=== PATIENT | male | born 1950 | race Caucasian/White ===

== ENCOUNTER 2017-06-08 12:43 | Emergency (ER) | payer MEDICARE, SELFPAY ==
[2017-06-08 12:44] VITALS: BP 164/95; PULSE 79; RESP 15; TEMP 36.6; O2SAT 94; BMI 26.8
[2017-06-08 13:53] LABS: Absolute Lymphocyte Count 0.74 X10^3/ul (0.83-4.51); Absolute Neutrophil Count 7.4 X10^3/uL (2.0-7.7); Basophil# 0.01 X10^3/uL; Basophil% 0.1 % (0-1); Eosinophil# 0.03 X10^3/uL; Eosinophils% 0.3 % (0-5); Hematocrit 37.1 % (40-54); Hemoglobin 11.8 g/dl (13.0-16.5); Lymphocyte # 0.74 X10^3/ul (4.0); Lymphocyte % 8.2 % (19-41); Mean Corp Hgb Conc 31.8 g/gl (32-36); Mean Corpuscular Hgb 28.6 pg (27.0-32.0); Mean Platelet Vol. 9.1 fl (6.2-12.0); Monocyte# 0.83 X10^3/uL; Monocyte% 9.2 % (0-10); Neutrophil # 7.41 X10^3/uL (2.7-7.7); Platelet Count 255 K/mm3 (150-450); RBC Distribution Width CV 13.9 % (11.6-14.6); Red Blood Count 4.12 M/mm3 (4.6-6.2)
[2017-06-08 13:54] LABS: POSITIVE COUNT NO; POSITIVE DIFFERENTIAL NO; POSITIVE MORPHOLOGY NO
--- NOTE | 2017-06-08 13:56 | ED.RN ---
PER VERBAL ORDER OF DR. MOONEY, PT GIVEN CUP OF ICE WATER. FURTHER VERBAL INSTRUCTION IS THAT PT IS TO ONLY HAVE ICE WATER PO, PT IS OTHERWISE ALLOWED NOTHING BY MOUTH.
[2017-06-08 14:06] LABS: Anion Gap 5 (5-15); BUN 9 mg/dL (7-18); BUN/Creat Ratio 13.3 RATIO (10-20); Calcium,Total 8.4 mg/dL (8.5-10.1); Chloride 100 mmol/L (98-107); Creatinine, Serum 0.68 mg/dL (0.70-1.30); EST Glomerular Filtration Rate 125 mL/min (>60); Est Glom Filt Rate - Afr Amer 151 mL/min (>60); Estimated Creatinine Clearance 75.03 ml/min; Glucose 138 mg/dL (74-106); Potassium 3.8 mmol/L (3.5-5.1); Sodium Level 133 mmol/L (136-145)
[2017-06-08 14:44] VITALS: BP 169/94; PULSE 77; RESP 16; O2SAT 94
--- NOTE | 2017-06-08 14:46 | ED.VISSUMM ---
- ER Visit Summary Date of Service: 06/08/17 Chief Complaint: Acute numbness and decreased sensation perianal region. History of Present Illness: The patient is a 66 M who was recently diagnosed with metastatic cancer to C4, T4, T5 and liver. There were pulmonary nodules noted as well. Patient had a recent liver biopsy. Pathology has not returned. Hence today because of numbness left upper and lower extremity that started abruptly after he showered this morning. He denies bowel or bladder dysfunction. He does complain of altered sensation in the perianal region. Per discussion with family, patient and Dr. Spangler has not an MRI of his brain. He denies any visual, ocular or auditory symptoms. I trouble speech or swallowing. He denies any cardiac respiratory symptoms. He denies any GI symptoms. He does complain of back pain. He was on no meds prior to this incident. Physical Examination: No signs are noted. His blood pressure is elevated 164/95. Head is atraumatic normocephalic. Pupils are equal round reactive. Extraocular muscles are intact. TMs are pearly white with landmarks noted. Nares patent with no drainage. Posterior pharynx without erythema or exudate. Uvula is midline. There is no dysphonia or dysphasia. Trachea is midline. There is no stridor with auscultation of the neck. Heart is regular without murmur, gallop or rub. S1 and S2 are normal. Lungs are clear to auscultation with good movement of air bilaterally. Abdomen is soft nontender. He has altered sensation left upper and lower extremity. No Babinski sign. DTRs are symmetric. There is no clonus. He has decreased rectal tone and altered perianal sensation. Difficult to assess for anal wink. Test Results: BMP and CBC were pending at the time of his transfer to the [facility]. Emergency Department Course and Treatment: In light of his history of metastatic cancer to bone BMP and CBC were obtained. After discussion with Dr. Mcarthur, Dr. Levy neurosurgery at [facility] and Dr. Nesbitt MRI of the brain, cervical, thoracic and lumbar spine were ordered. I was informed at 1445 that he now has a bed at the [facility] Treatment Plan: Transfer to [facility] for definitive care Disposition: Transfer to [facility]. 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 It may contain incorrect words, spelling, and punctuation that were not noted in review of the chart prior to signing ED Disposition - Plan for ED Patient: Chief Complaint: Back Referrals: Akila Aguirre NP-C [Primary Care Provider] -
--- NOTE | 2017-06-08 14:53 | ED.DCSUM_ITS ---
- ER Visit Summary Date of Service: 06/08/17 Chief Complaint: Acute numbness and decreased sensation perianal region. History of Present Illness: The patient is a 66 M who was recently diagnosed with metastatic cancer to C4, T4, T5 and liver. There were pulmonary nodules noted as well. Patient had a recent liver biopsy. Pathology has not returned. Hence today because of numbness left upper and lower extremity that started abruptly after he showered this morning. He denies bowel or bladder dysfunction. He does complain of altered sensation in the perianal region. Per discussion with family, patient and Dr. Spangler has not an MRI of his brain. He denies any visual, ocular or auditory symptoms. I trouble speech or swallowing. He denies any cardiac respiratory symptoms. He denies any GI symptoms. He does complain of back pain. He was on no meds prior to this incident. Physical Examination: No signs are noted. His blood pressure is elevated 164/ 95. Head is atraumatic normocephalic. Pupils are equal round reactive. Extraocular muscles are intact. TMs are pearly white with landmarks noted. Nares patent with no drainage. Posterior pharynx without erythema or exudate. Uvula is midline. There is no dysphonia or dysphasia. Trachea is midline. There is no stridor with auscultation of the neck. Heart is regular without murmur, gallop or rub. S1 and S2 are normal. Lungs are clear to auscultation with good movement of air bilaterally. Abdomen is soft nontender. He has altered sensation left upper and lower extremity. No Babinski sign. DTRs are symmetric. There is no clonus. He has decreased rectal tone and altered perianal sensation. Difficult to assess for anal wink. Test Results: BMP and CBC were pending at the time of his transfer to the [facility]. Emergency Department Course and Treatment: In light of his history of metastatic cancer to bone BMP and CBC were obtained. After discussion with Dr. Mcarthur, Dr. Levy neurosurgery at [facility] and Dr. Nesbitt MRI of the brain, cervical, thoracic and lumbar spine were ordered. I was informed at 1445 that he now has a bed at the [facility] Treatment Plan: Transfer to [facility] for definitive care Disposition: Transfer to [facility]. 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 It may contain incorrect words, spelling, and punctuation that were not noted in review of the chart prior to signing ED Disposition - Plan for ED Patient: Chief Complaint: Back Referrals: Akila Aguirre NP-C [Primary Care Provider] -
--- NOTE | 2017-06-08 14:58 | ED.RN ---
REPORT CALLED TO [facility] AFSANEH PEDRAZA.
[2017-06-08 16:00] VITALS: RESP 14
[2017-06-08] MEDS: HYDROmorphone 1 MG/ML Syringe IV (16:07)
[2017-06-08 16:14] VITALS: BP 162/92; PULSE 88; RESP 16; O2SAT 93
== END 2017-06-08 16:15 | disposition short-term general hospital (02) ==
PROVIDERS: Emergency Provider Emergency Medicine; Family Provider Nurse Practitioner Family; PCP Nurse Practitioner Family
DX: M84.48XA Pathological fracture, other site, initial encounter for fracture (principal); M51.04 Intervertebral disc disorders with myelopathy, thoracic region; K59.8 Other specified functional intestinal disorders; R20.2 Paresthesia of skin; C78.7 Secondary malignant neoplasm of liver and intrahepatic bile duct; C79.51 Secondary malignant neoplasm of bone; Z79.891 Long term (current) use of opiate analgesic
CPT/HCPCS: 80048; 85025; 96374; 96375; 99285; A4216

== ENCOUNTER 2017-09-20 12:33 | Emergency (ER) | payer MEDICARE, SELFPAY ==
[2017-09-20 12:34] VITALS: BP 112/50; PULSE 110; RESP 18; TEMP 36.8; O2SAT 95; BMI 22.6
[2017-09-20 13:47] LABS: Absolute Lymphocyte Count 1.24 X10^3/ul (0.83-4.51); Absolute Neutrophil Count 15.6 X10^3/uL (2.0-7.7); Hematocrit 32.7 % (40-54); Hemoglobin 10.6 g/dl (13.0-16.5); Lymphocyte # 1.24 X10^3/ul (4.0); Lymphocyte % 7.1 % (19-41); Mean Corp Hgb Conc 32.4 g/gl (32-36); Mean Corpuscular Volume 89.6 fL (80-94); Mean Platelet Vol. 8.9 fl (6.2-12.0); Monocyte# 0.51 X10^3/uL; Monocyte% 2.9 % (0-10); Neutrophil # 15.62 X10^3/uL (2.7-7.7); Neutrophil % 89.7 % (47-70); Platelet Count 346 K/mm3 (150-450); RBC Distribution Width CV 19.1 % (11.6-14.6); RBC Distribution Width SD 62.9 fl (35.1-43.9); Red Blood Count 3.65 M/mm3 (4.6-6.2); White Blood Count 17.4 K/mm3 (4.4-11.0)
[2017-09-20 13:48] LABS: POSITIVE COUNT NO; POSITIVE DIFFERENTIAL NO; POSITIVE MORPHOLOGY NO
[2017-09-20 14:01] LABS: Anion Gap 11 (5-15); BUN 15 mg/dL (7-18); BUN/Creat Ratio 21.2 RATIO (10-20); Calcium,Total 7.1 mg/dL (8.5-10.1); Chloride 103 mmol/L (98-107); Creatinine, Serum 0.71 mg/dL (0.70-1.30); EST Glomerular Filtration Rate 118 mL/min (>60); Est Glom Filt Rate - Afr Amer 143 mL/min (>60); Glucose 84 mg/dL (74-106); Potassium 3.5 mmol/L (3.5-5.1); Sodium Level 136 mmol/L (136-145)
--- NOTE | 2017-09-20 14:06 | CM.ED ---
Case management consulted by Dr. Johnson for resource management related to lack of drug coverage. CM INITIAL ASSESSMENT: Home: Patient lives in a two-story home with his . They have first-floor setup. HHS/Aides: Denies currently having and declines setup at this time. DME: Walker and cane, as needed. Home Oxygen: Denies. Pharmacy: [facility] Advance Directives: Denies currently having. Declines assistance at this time. PCP: Akila Aguirre Specialists: Dr. Mcarthur I discussed maximum income requirement to qualify for Medicaid and patient states he will not qualify. I asked the patient if he has looked into drug coverage. He replied, We considered it and then decided not to get any. Call placed to Dr. Mcarthur's office. Dr. Mcarthur states he sent the patient to ED because he has a DVT and no drug coverage. I explained that we can offer the patient a 30 day free trial of Xarelto, but we have no further means of providing medication at no cost for this patient. Dr. Mcarthur states the patient will need to be on this medication for lifetime. He has already sent a prescription for Xarelto to patient's pharmacy, [facility] in [place]. Dr. Mcarthur states that he recommends providing first dose of Xarelto to the patient in the ED. Patient may take his second dose tomorrow morning, using his 30-day trial offer. Dr. Johnson updated on Dr. Mcarthur's recommendations. I discussed palliative care with the patient and family. All present are in agreement with palliative care referral. Patient requests that they contact his , Radha. Palliative care referral sent. Radha states that the patient has ample family support. DC Plan: Home with family support. 30 day free trial offer for Xarelto. Palliative care referral. Patient encouraged to follow-up with Dr. Mcarthur's office social insurance analyst. Patient encouraged to acquire prescription drug coverage.
--- NOTE | 2017-09-20 14:36 | CM.ED ---
Social Work Note MILO MOLINA, Albaro Hernandes, updated SPIKE on case. Pt and his do not meet income guidelines for Medicaid, they opted to not have drug coverage. Albaro Hernandes to give pt 30 day free trail for Xarelto. SPIKE placed call to Trudi Solorzano, Patient Navigator, who informed [employer] of application through [employer] that assists with drug coverage for those without. Form does need completed by office staff/Dr. Mcarthur. Provided to pt and his and informed of process. Understanding expressed and both thanked [employer]KE and MILO MOLINA. No further needs at this time. Sara Babin, FARM OWNER OPERATOR, PAINTER AND DECORATOR APPRENTICE
[2017-09-20] MEDS: Rivaroxaban 15 MG Tablet PO (15:16)
[2017-09-20] MEDS: 0.9% Normal Saline 1,000 ML 999 ML IV (15:17)
--- NOTE | 2017-09-20 15:25 | ED.VISSUMM ---
- ER Visit Summary Date of Service: 09/20/17 Chief Complaint: [DVT left leg] History of Present Illness: The patient is a 67 M [presents the emergency department complaint of swelling in his left leg for about a week. Patient was seen by Dr. Spangler and had a venous Doppler ordered which showed a femoral vein DVT. Dr. Mcarthur asked that patient come in to be admitted for anticoagulation as he does not have prescription coverage and cannot afford the medication for anticoagulation of his DVT. Patient denies any chest pain. 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 Cranial nerves II through XII grossly intact. TMs clear. Mucous membranes moist. No adenopathy. Cardiovascular-regular and tachycardic. No murmurs auscultated. Lungs-clear to auscultation, chest wall stable without crepitus or subcu emphysema Abdomen-normoactive bowel sounds, soft, nontender, no rebound or rigidity, no peritoneal signs. Extremities-intact ?4, normal range of motion, normal pulses, atraumatic]. Patient does have edema of both lower extremities of +2. Positive Homans sign on the left. No ropes or cords palpated. Has normal pulses in both lower extremities. Test Results: [CBC with differential obtained showed a white count 17.4, hemoglobin 10, hematocrit 33, placed 346. Chemistries unremarkable. BUN was 15 and current was 0.71.] Emergency Department Course and Treatment: [woodworker helper speak with the patient as well as with Dr. Mcarthur. At this point the worker will be able to have patient obtain a months worth of Xarelto at no charge to himself and Dr. Mcarthur's team will work on arranging further treatment of his DVT. Patient will be discharged to home and to follow-up with Dr. Mcarthur. She did receive a liter normal same fluid bolus in the emergency department as family was concerned the patient was not drinking enough.] Treatment Plan: [Patient will be started on Xarelto and was given 15 mg p.o. in the emergency department prior to departure.] Disposition: [Discharged home in stable condition. Patient advised to return if chest pain or increasing shortness of breath.] Impression: [DVT left lower extremity] This note was generated with [employer] software. It may contain incorrect words, spelling, and punctuation that were not noted in review of the chart prior to signing ED Disposition - Plan for ED Patient: Chief Complaint: Lower Extremity Injury Referrals: Akila Aguirre NP-C [Primary Care Provider] -
--- NOTE | 2017-09-20 15:28 | ED.DCSUM_ITS ---
- ER Visit Summary Date of Service: 09/20/17 Chief Complaint: [DVT left leg] History of Present Illness: The patient is a 67 M [presents the emergency department complaint of swelling in his left leg for about a week. Patient was seen by Dr. Spangler and had a venous Doppler ordered which showed a femoral vein DVT. Dr. Mcarthur asked that patient come in to be admitted for anticoagulation as he does not have prescription coverage and cannot afford the medication for anticoagulation of his DVT. Patient denies any chest pain. 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 Cranial nerves II through XII grossly intact. TMs clear. Mucous membranes moist. No adenopathy. Cardiovascular-regular and tachycardic. No murmurs auscultated. Lungs-clear to auscultation, chest wall stable without crepitus or subcu emphysema Abdomen-normoactive bowel sounds, soft, nontender, no rebound or rigidity, no peritoneal signs. Extremities-intact ?4, normal range of motion, normal pulses, atraumatic]. Patient does have edema of both lower extremities of +2. Positive Homans sign on the left. No ropes or cords palpated. Has normal pulses in both lower extremities. Test Results: [CBC with differential obtained showed a white count 17.4, hemoglobin 10, hematocrit 33, placed 346. Chemistries unremarkable. BUN was 15 and current was 0.71.] Emergency Department Course and Treatment: [bilingual social worker speak with the patient as well as with Dr. Mcarthur. At this point the worker will be able to have patient obtain a months worth of Xarelto at no charge to himself and Dr. Mcarthur's team will work on arranging further treatment of his DVT. Patient will be discharged to home and to follow-up with Dr. Mcarthur. She did receive a liter normal same fluid bolus in the emergency department as family was concerned the patient was not drinking enough.] Treatment Plan: [Patient will be started on Xarelto and was given 15 mg p.o. in the emergency department prior to departure.] Disposition: [Discharged home in stable condition. Patient advised to return if chest pain or increasing shortness of breath.] Impression: [DVT left lower extremity] This note was generated with getuppation software. It may contain incorrect words, spelling, and punctuation that were not noted in review of the chart prior to signing ED Disposition - Plan for ED Patient: Chief Complaint: Lower Extremity Injury Referrals: Akila Aguirre NP-C [Primary Care Provider] -
--- NOTE | 2017-09-20 15:29 | ED.DEP ---
ED Disposition - Plan for ED Patient: Chief Complaint: Lower Extremity Injury Instructions: ED DVT Prescriptions: Rivaroxaban [Xarelto] 20 mg PO DAILY #7 tab Rivaroxaban [Xarelto] 15 mg PO BID #42 tab Referrals: Akila Aguirre NP-C [Primary Care Provider] - Akbar Mcarthur DO [STAFF PHYSICIAN] - 5-7 Days
[2017-09-20 16:02] VITALS: BP 111/77; PULSE 92; RESP 16; O2SAT 96
== END 2017-09-20 16:03 | disposition home or self-care (01) ==
PROVIDERS: Emergency Provider Emergency Medicine; Family Provider Nurse Practitioner Family; PCP Nurse Practitioner Family
DX: I82.412 Acute embolism and thrombosis of left femoral vein (principal); C44.99 Other specified malignant neoplasm of skin, unspecified; C79.9 Secondary malignant neoplasm of unspecified site; Z79.899 Other long term (current) drug therapy
CPT/HCPCS: 80048; 85025; 96360; 99284; A4216

== ENCOUNTER 2018-02-17 13:57 | Emergency (ER) | payer MEDICARE, SELFPAY ==
[2018-02-17 13:57] VITALS: BP 110/71; PULSE 78; RESP 16; TEMP 36.7; O2SAT 99; BMI 20.3
--- NOTE | 2018-02-17 14:23 | RAD_ITS ---
STUDY: XR FEMUR, RIGHT RIGHT REASON FOR EXAM: Male, 67 years old. Fall 2 weeks ago, pain in the right hip and proximal femur. TECHNIQUE: 4 views of the right femur. COMPARISON: Frontal pelvis same date. FINDINGS: Right total knee arthroplasty. The prosthetic components appear to be normally seated and articulated. There is no evidence of fracture about the knee and no evidence of effusion. There are prominent peripheral vascular calcifications of the femoral arterial distribution. The femoral shaft is intact. There is no radiographic evidence of femoral neck or intertrochanteric fracture. There are minimal degenerative features of the right hip joint. There is mildly increased prominence of the soft tissue silhouette associated with superior right hip joint capsule which could reflect the presence of effusion. There is no visible pubic ramus fracture. RAD/Femur Min 2 Views IMPRESSION: Mild right hip joint capsule soft tissue prominence may reflect the presence of hip joint effusion. No visible hip, femur or knee fracture. Peripheral arterial disease. Electronically Signed: Yuniel Moctezuma, at 14:55 EST Tel , Service support ,
--- NOTE | 2018-02-17 14:23 | RAD_ITS ---
STUDY: X-RAY - PELVIS REASON FOR EXAM: Male, 67 years old. Trauma, fall 2 weeks ago with pain in the right hip. TECHNIQUE: One view of the pelvis was obtained. COMPARISON: None. FINDINGS: Generalized osteopenia. Low lumbar degenerative disc disease and facet arthropathy at L4-L5 and L5-S1. Mild symmetric degenerative features of the SI joints. The sacral ala appear symmetric and intact. Iliac crests intact. Acetabula are intact. No evidence of pubic ramus fracture. Left proximal femur intact. Mild degenerative features. Right hip: There appears to be mild distention of the right hip joint space superior to the femoral head and lateral to this. Acetabular margin which may indicate the presence of joint effusion. There is no visible fracture. There are mild degenerative features of the right hip particularly should including mild joint margin osteophytic lipping and small subcortical acetabular cysts. There is a small synovial herniation pit of the superior aspect of the femoral head-neck junction. RAD/Pelvis 1 or 2 Views IMPRESSION: Prominence of the right hip periarticular soft tissue silhouette suggesting the possibility of right hip effusion. Mild degenerative features of the right and left hip joints. Low lumbar spondylosis. No visible hip or pelvic fracture. Electronically Signed: Yuniel Moctezuma, at 14:53 EST Tel , Service support ,
--- NOTE | 2018-02-17 15:41 | ED.VISSUMM ---
- ER Visit Summary Date of Service: 02/17/18 Chief Complaint: Right hip pain History of Present Illness: The patient is a 67 M who is on Xarelto and has a history of metastatic melanoma. 2 weeks ago after being discharged from the hospital where he had gamma knife surgery the patient sustained a fall onto his left hip. He denies hitting his head. He notes that he has had continued pain in the right hip with motion. He states that he uses a walker. Family brings him in. Patient points to the lateral aspect of the thigh and the hip as the source of his pain. Physical Examination: Afebrile vital signs are stable Patient has no pain with logroll. He has tenderness over the greater trochanter. I am able to flex and extend the hip. He has most a lot of pain with AB and adduction. Test Results: X-rays of the pelvis and femur were negative for fracture. Emergency Department Course and Treatment: At home. His prefers Tylenol. Talked about joint effusion and what it could represent. Patient will follow-up if he is not improving. He may need an MRI if he does not improve. Impression: 1. Right hip contusion 2. Right hip effusion This note was generated with [employer] dictation software. It may contain incorrect words, spelling, and punctuation that were not noted in review of the chart prior to signing ED Disposition - Plan for ED Patient: Disposition: Home or Assisted Living Chief Complaint: Fall Instructions: ED Contusion Hip Referrals: Akila Aguirre NP-C [Primary Care Provider] - 1 Week if not improving
== END 2018-02-17 16:18 | disposition home or self-care (01) ==
PROVIDERS: Emergency Provider Emergency Medicine; Family Provider Nurse Practitioner Family; PCP Nurse Practitioner Family
DX: M25.451 Effusion, right hip (principal); S70.01XA Contusion of right hip, initial encounter; Z85.820 Personal history of malignant melanoma of skin; Z79.02 Long term (current) use of antithrombotics/antiplatelets; Z79.899 Other long term (current) drug therapy; W19.XXXA Unspecified fall, initial encounter; Y93.89 Activity, other specified; Y92.89 Other specified places as the place of occurrence of the external cause; Y99.8 Other external cause status
CPT/HCPCS: 72170; 73552; 99283

== ENCOUNTER 2018-02-25 09:36 | Outpatient (CLI) | payer MEDICARE, SELFPAY ==
[2018-02-25] VITALS (10 sets, daily range): BP systolic 97–127; BP diastolic 60–76; PULSE 75–97; RESP 16–20; TEMP 36.4–36.9; O2SAT 94–100; BMI 20.3
[2018-02-25] MEDS: Acetaminophen 500 MG Tablet PO (16:17)
--- NOTE | 2018-02-25 17:02 | NURSING ---
Approx 20 min until 2nd PRBC done infusing, of patient tells me he hasn't peed in 24hrs. Before we left the house, he peed just a little bit. This nurse bladder scanned him for >766. This nurse assisted pt to getting up to BSC to urinate. Unable to urinate. Back to bed. Dr. Moreno aware and orders to put mistry in and go home and d/u with Lyubov on Tuesday.
--- NOTE | 2018-02-25 17:34 | NURSING ---
Thompson inserted, 850cc of urine obtained.
== END 2018-02-25 17:34 | disposition home or self-care (01) ==
LOC: MS3OUT 09:37 → MS3 09:39
PROVIDERS: Family Provider Nurse Practitioner Family; PCP Nurse Practitioner Family; Referring Provider Internal Medicine Hematology & Oncology; Visit Provider Internal Medicine Hematology & Oncology
DX: Z51.89 Encounter for other specified aftercare (principal)
CPT/HCPCS: 36430; 86850; 86900; 86920; 86922; J7040; P9016

== ENCOUNTER 2018-02-27 17:24 | Emergency (ER) | payer MEDICARE, SELFPAY ==
[2018-02-25 11:14] VITALS: BMI 20.3
[2018-02-27 17:24] VITALS: BP 118/57; PULSE 68; RESP 16; TEMP 36.6; O2SAT 93; BMI 20.7
[2018-02-27 18:58] LABS: Mucous, Urine 0 SEEN /hpf (<or=2+)
--- NOTE | 2018-02-27 18:58 | ED.RN ---
uro-jet no used. catheter place without complications. family at bedside. catheter secured to right thigh. sara vuong rn [id number]
[2018-02-27 18:59] LABS: ALB/GLOB Ratio 0.5 RATIO (0.9-2.4); AST(SGOT) 123 U/L (15-37); Alanine Aminotransfer ALT/SGPT 28 U/L (16-61); Albumin, Serum 1.7 g/dL (3.2-5.0); Alkaline Phosphatase 229 U/L (45-117); Anion Gap 8 (5-15); BUN 15 mg/dL (7-18); BUN/Creat Ratio 20.6 RATIO (10-20); Calcium,Total 7.5 mg/dL (8.5-10.1); Chloride 107 mmol/L (98-107); Creatinine, Serum 0.73 mg/dL (0.70-1.30); EST Glomerular Filtration Rate 114 mL/min (>60); Est Glom Filt Rate - Afr Amer 138 mL/min (>60); Estimated Creatinine Clearance 66.68 ml/min; Globulin 3.2 g/dL (2.2-4.2); Glucose 107 mg/dL (74-106); Potassium 3.8 mmol/L (3.5-5.1); Protein, Total 4.9 g/dL (6.4-8.2); Sodium Level 136 mmol/L (136-145)
[2018-02-27 19:01] LABS: Absolute Lymphocyte Count 0.82 X10^3/ul (0.83-4.51); Absolute Neutrophil Count 14.8 X10^3/uL (2.0-7.7); Basophil# 0.01 X10^3/uL; Basophil% 0.1 % (0-1); Eosinophil# 0.02 X10^3/uL; Eosinophils% 0.1 % (0-5); Hematocrit 25.7 % (40-54); Hemoglobin 8.2 g/dl (13.0-16.5); Lymphocyte # 0.82 X10^3/ul (4.0); Lymphocyte % 4.7 % (19-41); Mean Corp Hgb Conc 31.9 g/gl (32-36); Mean Corpuscular Hgb 29.4 pg (27.0-32.0); Mean Corpuscular Volume 92.1 fL (80-94); Mean Platelet Vol. 8.4 fl (6.2-12.0); Monocyte# 1.88 X10^3/uL; Monocyte% 10.7 % (0-10); Neutrophil # 14.81 X10^3/uL (2.7-7.7); Neutrophil % 84.1 % (47-70); Platelet Count 436 K/mm3 (150-450); RBC Distribution Width CV 18.5 % (11.6-14.6); RBC Distribution Width SD 60.3 fl (35.1-43.9); Red Blood Count 2.79 M/mm3 (4.6-6.2); White Blood Count 17.6 K/mm3 (4.4-11.0)
[2018-02-27 19:02] LABS: Color, Urine Amber (Yellow); Glucose, Dipstick Normal (Normal); Ketone-Dipstick 5 mg/dl (Negative); Leukocyte Esterase-Dipstick 100 /ul (Negative); Nitrite-Dipstick Negative (Negative); Occult Blood-Urine 25 /ul (Negative); Protein-Dipstick 30 mg/dl (Negative); Urine Clarity Clear (Clear); Urine Urobilinogen 8 mg/dl (Normal); Urine pH 6.5 (5.0 - 8.0)
[2018-02-27 19:02] LABS: Differential Indicated SCAN CRITERIA MET; POSITIVE COUNT NO; POSITIVE DIFFERENTIAL YES; POSITIVE MORPHOLOGY YES
[2018-02-27 19:12] LABS: Urine Bilirubin Dipstick 3 mg/dL (Negative)
[2018-02-27 19:14] LABS: Bacteria 1+ /hpf (None Seen); Red Blood Cells-Urine 0-5 SEEN /hpf (0-5); Squamous Epithelial Cells - UA 0-5 SEEN /hpf (0-5); White Blood Cells 0-5 SEEN /hpf (0-5)
--- NOTE | 2018-02-27 19:14 | ED.VISSUMM ---
- ER Visit Summary Date of Service: 02/27/18 Chief Complaint: Urinary tract infection, weakness History of Present Illness: The patient is a 67 M presents to the emergency department urinary tract infection and weakness. The patient has a history of metastatic melanoma. He is on an oral chemotherapeutic. He does follow with Dr. Mcarthur. Patient was seen Tuesday by Dr. Spangler. At that time, he was transfused 2 units. He was also found to have acute urinary obstruction. A Thompson catheter was placed. Culture was done. The patient was started on amoxicillin. Tuesday night while in bed, he moved and the catheter came out. Since then, he has had difficulty urinating and has had increasing weakness. He denies any fevers or chills. The patient does have known metastasis throughout his body. He has a very poor prognosis. Physical Examination: Vital signs reviewed General: Well-nourished, well-developed Head: Normocephalic, atraumatic Eyes: Pupils equal and reactive, extraocular muscles intact Neck, supple, no lymphadenopathy Heart: Regular rate and rhythm Respiratory: No distress, clear bilaterally Abdomen: Soft, nontender, nondistended, no peritoneal signs Back: Nontender Extremities: Nontender, 1+ edema, no cords Skin: Normal color no rash Neuro: Alert and oriented, no focal or lateralizing deficits Test Results: [] Emergency Department Course and Treatment: The patient presents with weakness. He has known urinary tract infection. He has been able to urinate since his catheter came out. Bladder scan was obtained and he had over 500 cc. Thompson catheter was placed and the patient had immediate relief of his symptoms. Screening labs do show leukocytosis and chronic anemia. Otherwise they are unremarkable. His kidney function is normal. He does have elevation of his liver functions, but in review of his lab work this does appear to be chronic. I had a long conversation with the patient and the family. He has a known urinary tract infection. His obstruction has been relieved. He has rather severe cancer with poor prognosis. He wants to go home. He is not septic. He has already been on oral antibiotics. I feel this is reasonable. The patient was given a dose of IV Rocephin. Catheter will be kept in place. He will be discharged and follow-up with Dr. Mcarthur. Treatment Plan: [] Disposition: Discharge Impression: 1. Acute urinary obstruction This note was generated with [employer] software. It may contain incorrect words, spelling, and punctuation that were not noted in review of the chart prior to signing ED Disposition - Plan for ED Patient: Chief Complaint: Complaint Instructions: ED Retention Urinary Male Referrals: Akila Aguirre NP-C [Primary Care Provider] -
[2018-02-27 19:35] LABS: Differential Comment SCANNED
[2018-02-27] MEDS: Ceftriaxone 1 GM/50 ML BAG IV (20:01)
[2018-02-27 20:05] VITALS: BP 118/85; PULSE 96; RESP 14; O2SAT 100
[2018-02-28 12:09] LABS: Pathologist Review Reviewed
--- OUTSIDE RECORDS SUMMARY | 2018-04-11 16:39 | XMS RPT_ITS ---
:1950 Author Organization OHIP Care Team Providers Name Role Phone LYUBOV, AKBAR Cabrera Referring Unavailable ZAYJAZIEL Attending Unavailable MASCI, AKBAR Cabrera Referring Unavailable MASCI, AKBAR Cabrera Referring Unavailable ZAY, JAZIEL Attending Unavailable ZAY, JAZIEL Attending Unavailable ZAY, JAZIEL Attending Unavailable MASCI, AKBAR Cabrera Referring Unavailable MASCI, AKBAR Cabrera Referring Unavailable MASCI, AKBAR Cabrera Attending Unavailable MASCI, AKBAR Cabrera Referring Unavailable MASCI, AKBAR Cabrera Referring Unavailable MASCI, AKBAR Cabrera Referring Unavailable MASCI, AKBAR Cabrera Referring Unavailable MASCI, AKBAR Cabrera Attending Unavailable MASCI, AKBAR Cabrera Referring Unavailable MASCI, AKBAR Cabrera Referring Unavailable MASCI, AKBAR A Referring Unavailable MASCI, AKBRA A Referring Unavailable MASCI, AKBAR Cabrera Attending Unavailable MASCI, AKBAR A Referring Unavailable MASCI, AKBAR A Referring Unavailable MASCI, AKBAR A Referring Unavailable MASCI, AKBAR A Referring Unavailable MASCI, AKBAR A Referring Unavailable MASCI, AKBAR Cabrera Attending Unavailable MASCI, AKBAR A Referring Unavailable MASCI, AKBAR A Referring Unavailable MASCI, AKBAR A Referring Unavailable FUNCHAINMAVIS Admitting Unavailable RINGS, JASBIR Referring Unavailable VELCHETI, VAMSIDHAR Attending Unavailable MASCI, AKBAR Cabrera Referring Unavailable MASCI, AKBAR Rick Referring Unavailable GRETCHEN LANE ([facility]) Attending Unavailable MASCI, AKBAR Rick Referring Unavailable MASCI, AKBAR Cabrera Referring Unavailable GRETCHEN LANE ([facility]) Attending Unavailable MASCI, AKBAR Cabrera Referring Unavailable LANEGRETCHEN MARINO ([facility]) Referring Unavailable MASCI, AKBAR Rick Referring Unavailable MASCI, AKBAR Rick Referring Unavailable MASCI, AKBAR Cabrera Attending Unavailable MASCI, AKBAR Rick Referring Unavailable ZAY, JAZIEL Attending Unavailable ZAY, DAKERRYUNG Referring Unavailable MASCI, AKBAR Cabrera Referring Unavailable VIRGIL, JACQUELYN JOSHI Attending Unavailable ZAY, DAKERRYUNG Attending Unavailable ZAY, DAKERRYUNG Attending Unavailable KOYFMANALE Attending Unavailable ZAY, JAZIEL Attending Unavailable MASCI, AKBAR Cabrera Attending Unavailable THIPPANNAHORACE () Referring Unavailable ZAY, ELFEGOUNG Attending Unavailable THIPPANNA, HORACE Soni () Referring Unavailable ZAY, JAZIEL Attending Unavailable THIPPANNAHORACE () Referring Unavailable THIPPANNA, HORACE WHITLOCK) Referring Unavailable CHATNEL, JD Admitting Unavailable MOONEY, SKINNY ARTEMIO Referring Unavailable THIPPANNA, HORACE Soni () Attending Unavailable THIPPANNAHORACE) Referring Unavailable CHANTEL, JD Admitting Unavailable THIPPANNAHORACE () Attending Unavailable MASCI, AKBAR A Referring Unavailable MASCI, AKBAR A Referring Unavailable MASCI, AKBAR Cabrera Referring Unavailable MASCI, AKBAR Cabrera Attending Unavailable MASCI, AKBAR Cabrera Referring Unavailable MASCI, AKBAR Cabrera Referring Unavailable BEATTY, GENE Admitting Unavailable BEATTY, GENE Attending Unavailable BEATTY, GENE Referring Unavailable BEATTY, GENE Referring Unavailable BEATTY, GENE Admitting Unavailable BEATTY, GENE Attending Unavailable BEATTY, GENE Referring Unavailable BEATTY, GENE Admitting Unavailable BEATTY, GENE Attending Unavailable BEATTY, GENE Referring Unavailable BEATTY, GENE Attending Unavailable HARPSTER, JERRY Referring Unavailable PHYLLIS GARCIA Attending Unavailable ZAY, DAESUNG Referring Unavailable MASCI, AKBAR A Referring Unavailable MASCI, AKBAR Rick Referring Unavailable ZAY, DAJOVANA Attending Unavailable ZAY, DAESUNG Referring Unavailable [place], Jerry September Attending Unavailable [place], Jerry September Admitting Unavailable [place], Jerry September Primary Care Unavailable Mary Reyes Consulting Unavailable Mary Reyes Attending Unavailable [place], Jerry September Primary Care Unavailable Mary Reyes Admitting Unavailable [place], Jerry September Admitting Unavailable [place], Jerry September Attending Unavailable [place], Jerry September Primary Care Unavailable [place], Jerry September Attending Unavailable [place], Jerry September Primary Care Unavailable [place], Jerry September Attending Unavailable [place], Jerry September Primary Care Unavailable [place], Jerry September Admitting Unavailable [place], Jerry September Attending Unavailable [place], Jerry September Primary Care Unavailable [place], Jerry September Admitting Unavailable [place], Jerry September Admitting Unavailable [place], Jerry September Attending Unavailable [place], Jerry September Primary Care Unavailable [place], Jerry September Primary Care Unavailable [place], Jerry September Admitting Unavailable [place], Jerry September Attending Unavailable [place], Jerry September Admitting Unavailable [place], Jerry September Attending Unavailable [place], Jerry September Primary Care Unavailable [place], Jerry September Attending Unavailable [place], Jerry September Primary Care Unavailable [place], Jerry September Primary Care Unavailable Rings Jasbir Admitting Unavailable Rings Jasbir Attending Unavailable Skinny Mooney Attending Unavailable [place], Jerry CONTENT WRITER-C Primary Care Unavailable [place], Jerry CONTENT WRITER-C Primary Care Unavailable Juan Luis Alcocer Attending Unavailable [place], Jerry CONTENT WRITER-C Primary Care Unavailable Aron Denney Attending Unavailable Akbar Mcarthur Attending Unavailable Akbar Mcarthur Referring Unavailable [place], Jerry CONTENT WRITER-C Primary Care Unavailable [place], Jerry CONTENT WRITER-C Primary Care Unavailable Austin Perez Attending Unavailable PROBLEMS PROBLEMS DATE TYPE CONDITION / CODE ATTENDING STATUS SOURCE 01/24/2018 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 / [facility] [place] C79.31(ICD-10) Repository 03/01/2018 Active Gross hematuria / NA Active [facility] R31.0(ICD-10) [place] Repository 03/01/2018 Active Anemia, unspecified NA Active [facility] / D64.9(ICD-10) [place] Repository 08/13/2017 Active 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 / C78.7(ICD-10) 08/13/2017 Active Malignant melanoma NA Active [facility] of skin, [place] unspecified / Repository C43.9(ICD-10) 11/24/2017 Active Low back pain / NA Active [facility] M54.5(ICD-10) [place] Repository 11/24/2017 Active Other specified NA Active [facility] urinary [place] incontinence / Repository N39.498(ICD-10) 11/24/2017 Active Full incontinence NA Active [facility] of feces / [place] R15.9(ICD-10) Repository 11/21/2017 Active 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 / Repository I82.512(ICD-10) 08/13/2017 Active Unspecified cord NA Active [facility] compression / [place] G95.20(ICD-10) Repository 09/20/2017 Active Other specified NA Active [facility] soft tissue [place] disorders / Repository M79.89(ICD-10) 09/16/2017 Active Dyspnea, NA Active [facility] unspecified / [place] R06.00(ICD-10) Repository 09/16/2017 Active Other abnormalities NA Active [facility] of breathing / [place] R06.89(ICD-10) Repository 09/05/2017 Active Unknown / NA Active [facility] UNK(Unknown) [place] Repository 08/02/2017 Active Hypothyroidism, NA Active [facility] unspecified / [place] E03.9(ICD-10) Repository 06/08/2017 Active Secondary malignant THIPPANNA, Active [facility] neoplasm of HORACE WHITLOCK) [place] unspecified site / Repository C79.9(ICD-10) 06/08/2017 Active Malignant (primary) THIPPANNA, Active [facility] neoplasm, HORACE WHITLOCK) [place] unspecified / Repository C80.1(ICD-10) 06/08/2017 Active Collapsed vertebra, THIPPANNA, Active [facility] not elsewhere HORACE WHITLOCK) [place] classified, Repository thoracic region, initial encounter for fracture / M48.54XA(ICD-10) 06/08/2017 Active Pain in thoracic THIPPANNA, Active [facility] spine / H[place]ACE WHITLOCK) [place] M54.6(ICD-10) Repository 06/03/2017 Active Dorsalgia, THIPPANNA, Active [facility] unspecified / HORACE WHITLOCK) [facility] M54.9(ICD-10) Repository 06/03/2017 Active Pathological THIPPANNA, 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, Repository other specified site, initial encounter for fracture / M84.58XA(ICD-10) 06/03/2017 Active Secondary malignant THIPPANNA, 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 / HORACE WHITLOCK) [facility] C79.51(ICD-10) Repository 06/03/2017 Active Neoplasm related THIPPANNA, Active [facility] pain (acute) HORACE WHITLOCK) [facility] (chronic) / Repository G89.3(ICD-10) PROCEDURES PROCEDURES No Procedure Records FoundRESULTS RESULTS CNPN Observed: 03/06/2018 Status: COMPLETED Source: [place] 12:00 AM [facility] REPOSITORY Telephone (JOSSY) DELMI PHILLIPS ([id number]) 1950 M Date Time Provider Department 03/06/18 AKBAR MCARTHUR During your visit today, we recorded the following information about you: Chela Young LPN, ROB 03/06/2018 8:13 AM Signed [facility] admission for their services on Tuesday. Have a couple questions. 1) Are we giving orders on urinary catheter, if not who is? 2) Can they have an order for home health aid to asst. With bathing pt., as he is bed bound? Will contact [facility] [phone] with insturctions. ROB Lin DO 03/06/2018 8:21 AM Signed As of Tuesday I thought the plan was for him to go to the ER. It sounds like he is functionally declining and his CT scans showed progression of disease. I left a voice message for his daughter Maria L this morning asking her to call the office so I can discuss with her. I think he needs hospice care. In the meantime, okay to go ahead and order a home health aide for assistance at home and we can manage orders for the catheter. DO Chela Crandall LPN, RBO 03/06/2018 9:23 AM Signed Spoke with Bela, given information concerning catheter , and assistance for home care. Dr. Mcarthur will manage orders. ROB Lin LPN 03/06/2018 1:17 PM Signed BETY Carrington from [facility] called to let you know that patient's flat out refused hospice and wouldn't even entertain a conversation regarding any of their services. Charissa will keep in touch with patient's daughter. Beverly Mcarthur DO 03/06/2018 1:20 PM Signed Noted. Thank you. Akbar Mcarthur DO Allergies As of Date: 03/06/2018 Noted Allergy Reaction SULFA (SULFONAMIDE ANTIBIOTICS) 08/25/2011 2 - Rash TIZANIDINE 06/04/2017 8 - GI Upset Date Reviewed: 02/27/2018 Reviewed by: Adilene Elder Ct - Fully Assessed Reason for Visit: home health [Other] Prescriptions as of 03/06/2018 Sig: POTASSIUM CHLORIDE ER 20 MEQ * Take 1 tablet by mouth once d* OMEPRAZOLE 40 MG CAPSULE,MALISSA* Take 1 capsule by mouth once * DABRAFENIB 75 MG CAPSULE Take 2 capsules by mouth twic* TRAMETINIB 2 MG TABLET Take 1 tablet by mouth once d* Problem List As Of Date 03/06/2018 Noted Resolved Cord compression (HCC) [G95.20] INVALID FOR* More... Nicotine use disorder, F17.2 [F17.200] INVALID FOR* Brain metastases (HCC) [C79.31] INVALID FOR* Malignant melanoma (HCC) [C43.9] INVALID FOR* Liver metastases (HCC) [C78.7] INVALID FOR* Fall [W19.XXXA] INVALID FOR*08/13/2017 More... Acute deep vein thrombosis (DVT) of femoral vei*INVALID FOR* Encounter Status:Closed by CHELA YOUNG on 03/06/18 CNPN Observed: 03/03/2018 Status: COMPLETED Source: [place] [address]:00 AM [facility] REPOSITORY Telephone (FAMPWS) DELMI DEL RIO ([id number]) 1950 M Date Time Provider Department 03/03/18 [facility] During your visit today, we recorded the following information about you: Adilene Mak Psr 03/03/2018 9:16 AM Signed Landy with [facility] called and states she just spoke with Delmi's about home care. told her that Delmi was referred by Dr Mcarthur. Additional information is needed to proceed in setting up home care: Demographics, Med list, recent office note, HANDP, and orders including PT. Please fax this information to Landy at [phone]. Beverly Rice LPN 03/03/2018 9:47 AM Signed All requested information faxed to Landy. Beverly Rice LPN 03/03/2018 11:03 AM Addendum Reba from [facility] calling asking if you will follow with home care or you'd prefer they call patient's PCP? Also asking if they can also have an order for nurse visits as well as PHYSICAL THERAPY? Reba [phone] Beverly Mcarthur DO 03/03/2018 11:25 AM Signed Yes, I can follow and order. Please write up necessary orders for me to sign. DO Beverly Crandall LPN 03/03/2018 11:45 AM Signed Reba aware. No new orders needed, verbal order given. Beverly Rice LPN Allergies As of Date: 03/03/2018 Noted Allergy Reaction SULFA (SULFONAMIDE ANTIBIOTICS) 08/25/2011 2 - Rash TIZANIDINE 06/04/2017 8 - GI Upset Date Reviewed: 02/27/2018 Reviewed by: Adilene Elder Ct - Fully Assessed Reason for Visit: Home Care Arrangements [[id number]] Prescriptions as of 03/03/2018 Sig: AMOXICILLIN 500 MG CAPSULE Take 1 capsule by mouth three* POTASSIUM CHLORIDE ER 20 MEQ * Take 1 tablet by mouth once d* OMEPRAZOLE 40 MG CAPSULE,MALISSA* Take 1 capsule by mouth once * DABRAFENIB 75 MG CAPSULE Take 2 capsules by mouth twic* TRAMETINIB 2 MG TABLET Take 1 tablet by mouth once d* Problem List As Of Date 03/03/2018 Noted Resolved Cord compression (HCC) [G95.20] INVALID FOR* More... Nicotine use disorder, F17.2 [F17.200] INVALID FOR* Brain metastases (HCC) [C79.31] INVALID FOR* Malignant melanoma (HCC) [C43.9] INVALID FOR* Liver metastases (HCC) [C78.7] INVALID FOR* Fall [W19.XXXA] INVALID FOR*08/13/2017 More... Acute deep vein thrombosis (DVT) of femoral vei*INVALID FOR* Encounter Status:Closed by BEVERLY RICE LPN on 03/03/18 PROGRESS Observed: 03/01/2018 Status: COMPLETED Source: [place] 4:07 PM [facility] REPOSITORY HNO ID: [id number] Author: Adilene Yanez Service: (none) Author Type: (none) Type: Progress Notes Filed: 03/01/2018 4:08 PM Note Text: Radiology Service Progress Note PATIENT NAME: Delmi Phillips DATE OF SERVICE: March 01, 2018 TIME: 4:07 PM PATIENT IDENTITY VERIFICATION COMPLETED USING TWO (2) METHODS: Patient confirmed name verbally and Date of . PATIENT GENDER DATA: Male PATIENT RELEVANT IMPLANT DATA REVIEWED: Yes CONTRAST INDUCED NEPHROPATHY RISK FACTORS: Patient age > 60 years CREATININE: Creatinine Date Value Ref Range Status 02/24/2018 0.70 (L) 0.73 - 1.22 mg/dL Final 01/18/2018 0.66 (L) 0.73 - 1.22 mg/dL Final 11/07/2017 0.60 0.6 - 1.2 mg/dL Final eGFR-All Other Races Date Value Ref Range Status 02/24/2018 >60 . Final Comment: eGFR (Estimated GFR) Units of measure: mL/min/1.73 meters squared eGFR is derived from the reexpressed MDRD Study equation using the following parameters: serum creatinine, age, gender and race. The creatinine assay has been calibrated to be traceable to IDMS. An eGFR <60 mL/min/1.73m2 for >3 months is consistent with chronic kidney disease. Refer to KDOQI guidelines for clinical interpretation. In patients with unstable renal function, e.g. those with acute kidney injury, the eGFR may not accurately reflect actual GFR. eGFR- Date Value Ref Range Status 02/24/2018 >60 Final P.O.C.T. RESULTS: POC done: Yes, See Lab Tab March 01, 2018 RADIOLOGIST NOTIFIED?: No ALLERGIES: Reviewed and unchanged CONTRAST ALLERGY: NO. PERIPHERAL IV ACCESS: Ambulatory: IV type: A peripheral IV was started in the Right forearm with a Angio cath: 22 gauge., Site assessment: Clean,Dry and Intact, Site disposition Discontinued RADIOLOGY DEPARTMENT: CT; Exam(s) Completed: Chest Abdomen Pelvis SIGNED BY: Adilene Elder Ct March 01, 2018 4:[address] ABD/PEL W IVCON Observed: 03/01/2018 Status: C Source: [place] 4:05 PM [facility] REPOSITORY * * *Final Report* * * * * * SEE BOTTOM OF REPORT FOR ADDENDED TEXT * * * DATE OF EXAM: Mar 01 2018 4:05PM [facility] 0530 - CT ABD/PEL W IVCON / PROCEDURE REASON: multiple diagnoses * * * * Physician Interpretation * * * * * * * * * * * * ORIGINAL REPORT * * * * * * * * EXAMINATION: CT ABDOMEN AND PELVIS WITH IV CONTRAST CLINICAL HISTORY: Hx melanoma,back,brain,post rad tx to both areas indwelling catheter,vasectomy TECHNIQUE: CT of the abdomen and pelvis was performed using standard technique, scanning from just above the dome of the diaphragm to the symphysis pubis. MQ: CTAP_3 Contrast: IV: 100 ml of Omnipaque 300 Oral: 50 ml of 50ML Omnipaque [address] Radiation dose: Integrated Dose-length product (DLP) for this visit = 463 mGy*cm. CT Dose Reduction Employed: Automated exposure control(AEC) and iterative recon COMPARISON: CT 11/07/2017 RESULT: Liver: Multiple hepatic masses are again noted. Most have decreased in size. Examples: -Inferior segment 8 mass 2.3 x 1.8 cm (8:26). Previously 3.1 x 2.4 cm. -2 lateral masses in segments 8 and 9 (both on series 8 image 23) 1.8 and 1.5 cm. Previously 2.0 and 2.1 cm. -Segment 21.4 cm mass (8:22). Previously this had measured 1.9 cm. There is a central segment 8 ill-defined mass measuring 3.4 x 3.1 cm (8:20). Previously this had measured 3.1 x 3.0 cm. Biliary: No bile duct dilation. Gallbladder is unremarkable. Spleen: Interval decrease of size of splenic masses. For example lateral splenic mass measures 2.3 cm (8:21). Previously this had measured 2.6 cm. Inferior splenic mass: Or has diminished size measuring 1.8 x 2.1 cm. Prior dimensions were 2.6 x 2.3 cm. The spleen has also decreased in size from the prior study. Pancreas: No mass or duct dilation. Adrenals: Interval increase in size of RIGHT adrenal nodule measuring about 1.4 x 2.3 cm (8:28). Prior dimensions were about 0.8 x 2 cm. Enlargement LEFT adrenal nodule with current dimensions about 2.8 x 2.3 cm. Maximal diameter on prior study was about 1 cm. Kidneys: No mass, calculus or hydronephrosis. GI tract: No dilation or wall thickening. Lymph nodes: Left periaortic adenopathy at level of origin superior mesenteric artery adjacent to the adrenal gland measuring 1.4 x 3.0 cm (8:38). Mesentery/Peritoneum: Left mesenteric nodule (8:69) measures about 1.7 x 1.3 cm. Previous dimensions about 2.3 x 1.7 cm. Right mesenteric mass inferior to the gallbladder is new from previous study and measures 1.7 x 1.3 cm (8:42). Retroperitoneum: Interval heterogeneous enlargement of the RIGHT psoas muscle extending inferior into the iliacus muscle new from prior study. Maximal axial dimensions in the psoas muscle about 6.4 x 6.4 centimeters. Maximal axial diameter in the iliacus about 4.1 cm. Length of involvement in the psoas muscle about 16 cm. Mild stranding adjacent to the iliacus. Vasculature: The celiac axis and SMA are patent. The portal vein and branches, splenic vein, SMV, and hepatic veins are patent. No abdominal aortic aneurysm Pelvis: Mass in RIGHT iliacus as noted above. Mild stranding of the presacral and precoccygeal fat. Urinary bladder decompressed by Thompson catheter. Bones/Soft Tissues: Osteolytic lesion best to not clearly changed measuring about 2 x 1.7 cm on sagittal images. Possible masses in each femoral neck about 1.5 cm in maximal diameter similar to prior study. (8:128 Lower thorax: A chest CT performed will be reported separately. IMPRESSION: Mixed changes. There is diminishment in size of most hepatic masses, splenic masses and a LEFT mesenteric mass. However, there is interval enlargement of a RIGHT mesenteric mass, enlargement of bilateral adrenal masses and new LEFT upper abdominal periaortic adenopathy. There is also probable mild enlargement of a hepatic mass. Interval development of large heterogeneous lesion in RIGHT psoas and iliacus muscle. In absence of associated symptoms abscess is unlikely. Primary considerations are metastatic disease, hemorrhage including hemorrhagic metastases. No apparent change in S2 osteolytic lesion. Possible bilateral femoral neck metastases not significantly changed. CT chest to be dictated separately. * * * * * * * * ADDENDUM #1 * * * * * * * * Urinary bladder calculi noted. Senior Piping Designer: MERRY Transcribe Date/Time: Mar 03 2018 8:28A Dictated by : TAMMY MESA MD This examination was interpreted and the report reviewed and electronically signed by: TAMMY MESA MD on Mar 03 2018 8:25AM EST This document has been addended by: TAMMY MESA MD on Mar 03 2018 8:29AM EST [id number] CT CHEST W IVCON Observed: 03/01/2018 Status: F Source: [place] 4:05 PM [facility] REPOSITORY * * *Final Report* * * DATE OF EXAM: Mar 01 2018 4:05PM [facility] 0539 - CT CHEST W IVCON / PROCEDURE REASON: multiple diagnoses * * * * Physician Interpretation * * * * EXAMINATION: CHEST CT WITH CONTRAST CLINICAL HISTORY: Malignant melanoma of skin (HCC) Malignant melanoma, unspecified site (HCC) Technique: Spiral CT acquisition of the chest from the thoracic inlet to the upper abdomen following IV contrast. MQ: CTCWR_5 Contrast: 100 mL Omnipaque [address] Dose-Length Product: 463 mGy*cm CT Dose Reduction Employed: Automated exposure control(AEC) and iterative recon Comparison: CT 11/07/17 RESULT: Limitations: None. Lines, tubes, and devices: None. Lung parenchyma and pleura: Overall decrease in size and number of pulmonary metastases. However there are several lesions which are new or enlarged. For example, LEFT lung nodule at subcarinal level (5:49) measures 8 mm, and previously was 5 mm in diameter. Slightly more posterior and inferior is a 1 cm nodule enlarged from prior study (5:51). Medial lingular nodules each about 1.2 cm in diameter are enlarged from prior study (5:56). 1 cm in diameter RIGHT middle lobe nodule (5:55) and previously been a 5 mm in diameter cavitary lesion. Superior segment RIGHT lower lobe nodule 1.4 cm in diameter (5:36 was previously about 4-5 mm in diameter. Small bilateral pleural effusions. Central airways are patent. Thoracic inlet, heart, and mediastinum: Heterogeneous LEFT axillary adenopathy new from prior study 1.4 by 2.1 cm (4:43). Interval development of preaortic anterior mediastinal adenopathy, 1.9 x 1.3 cm (4:81). Anterior RIGHT mediastinal adenopathy adjacent to the pericardium new from prior study, 2.7 x 1.9 cm. There is a posterior RIGHT perihilar mass which dates the mediastinum 0.5 cm in diameter new from prior study. Enlargement of anterior LEFT hilar or perihilar mass 1.8 cm in diameter The thoracic aorta and main pulmonary artery are normal in caliber. The cardiac chambers are normal in size. No coronary artery atherosclerotic calcifications are noted, although the study is not optimized for coronary assessment. No pericardial effusion or thickening. Small hiatal hernia Bones and soft tissues: Right infraclavicular mass from prior study measuring about 5.3 x 3.3 x 3 cm in diameter (4:15). Asymmetric mildly heterogeneous subcapsular density new from prior study 7.9 x 2.4 cm (4:62). Is also a new subcutaneous nodule adjacent to the RIGHT pectoral muscle 1 cm in diameter (4:63) posterior LEFT 8 mm subcutaneous nodule (4:119 and more inferior a 1.7 x 1.0 cm nodule (4:146). There are a few anterior LEFT subcutaneous nodules (images 74 and 84). Lateral LEFT chest wall mass, which is new in comparison prior study 3.6 x 1.6 cm in diameter. Nodule adjacent to a lower thoracic spinous process 1.1 cm in diameter (4:185). Stable heterogeneous compression deformities of T4 and T7. Stable osteolytic lesion with peripheral sclerosis T5. There is been further healing of a fracture of medial aspect of lower LEFT rib, probably T10. Upper abdomen: No abnormality in the imaged upper abdomen. IMPRESSION: As per the abdominal CT there is a mixed pattern. Interval decrease in size of a number of numerous pulmonary metastases. However, there are several pulmonary masses which are new or enlarged. In addition, there has been development of mediastinal adenopathy and RIGHT infraclavicular lesion consistent with metastatic disease. There are also new multiple chest wall lesions consistent with metastases. Stable bony findings. Senior Piping Designer: PSYCHIATRIC Transcribe Date/Time: Mar 03 2018 8:32A Dictated by : TAMMY MESA MD This examination was interpreted and the report reviewed and electronically signed by: TAMMY MESA MD on Mar 03 2018 9:05AM EST [id number] EMERGENCY DEPARTMENT Observed: 02/27/2018 Status: F Source: [place] SUMMARY 8:29 PM [facility] REPOSITORY [facility] Medical Records Department [address] [place] [address] Emergency Department Summary 02/27/181913 MR#: [id number] Acct: [id number] Name: DELMI PHILLIPS Rep #: [id number] : 1950 67 From: Austin Perez MD PCP: JATINDER Connolly Status: REG ER - ER Visit Summary Date of Service: 02/27/18 Chief Complaint: Urinary tract infection, weakness History of Present Illness: The patient is a 67 M presents to the emergency department urinary tract infection and weakness. The patient has a history of metastatic melanoma. He is on an oral chemotherapeutic. He does follow with Dr. Mcarthur. Patient was seen Tuesday by Dr. Spangler. At that time, he was transfused 2 units. He was also found to have acute urinary obstruction. A Thompson catheter was placed. Culture was done. The patient was started on amoxicillin. Tuesday night while in bed, he moved and the catheter came out. Since then, he has had difficulty urinating and has had increasing weakness. He denies any fevers or chills. The patient does have known metastasis throughout his body. He has a very poor prognosis. Physical Examination: Vital signs reviewed General: Well-nourished, well-developed Head: Normocephalic, atraumatic Eyes: Pupils equal and reactive, extraocular muscles intact Neck, supple, no lymphadenopathy Heart: Regular rate and rhythm Respiratory: No distress, clear bilaterally Abdomen: Soft, nontender, nondistended, no peritoneal signs Back: Nontender Extremities: Nontender, 1+ edema, no cords Skin: Normal color no rash Neuro: Alert and oriented, no focal or lateralizing deficits Test Results: [] Emergency Department Course and Treatment: The patient presents with weakness. He has known urinary tract infection. He has been able to urinate since his catheter came out. Bladder scan was obtained and he had over 500 cc. Thompson catheter was placed and the patient had immediate relief of his symptoms. Screening labs do show leukocytosis and chronic anemia. Otherwise they are unremarkable. His kidney function is normal. He does have elevation of his liver functions, but in review of his lab work this does appear to be chronic. I had a long conversation with the patient and the family. He has a known urinary tract infection. His obstruction has been relieved. He has rather severe cancer with poor prognosis. He wants to go home. He is not septic. He has already been on oral antibiotics. I feel this is reasonable. The patient was given a dose of IV Rocephin. Catheter will be kept in place. He will be discharged and follow-up with Dr. Mcarthur. Treatment Plan: [] Disposition: Discharge Impression: 1. Acute urinary obstruction This note was generated with Qype dictation software. It may contain incorrect words, spelling, and punctuation that were not noted in review of the chart prior to signing ED Disposition - Plan for ED Patient: Chief Complaint: Complaint Instructions: ED Retention Urinary Male Referrals: Jerry Aguirre NP-C [Primary Care Provider] - What to do if you have Problems For any increased pain, shortness of breath, bleeding, nausea or vomiting, chest pain, or any unexpected problems, contact your Primary Care Provider. Call [facility] ([phone]) or report to the closest Emergency Room. Call 911 if necessary. 02/27/182028 <Electronically signed by Austin Perez MD> Date Austin Perez MD Cosigner Signature (If Indicated): Date CC: CONTENT WRITER-C Jerry Aguirre COMPREHENSIVE METABOLIC Collected: 02/27/2018 Status: F Source: [place] VÍCTOR 6:32 PM [facility] REPOSITORY TYPE CODE TESTS RESULT OUT OF RANGE REFERENCE UNITS LAB L501.0100 74-106 mg/dL High GLU 107 Result Comment: Fasting Glucose result from 100 to 125 mg/dL suggests IMPAIRED HOMEOSTASIS per A.D.A. criteria. Please note revised GLUCOSE reference range effective 2017. LAB L501.1000 7-18 mg/dL Normal BUN 15 LAB L501.1100 0.70-1.30 mg/dL Normal CREAT,SERUM 0.73 Result Comment: The validity of the calculated GFR AND GFRAA in patients over 70 years has not been determined. Clinical correlation is essential. LAB L501.1110 >60 mL/min Normal EST GFR 114 Result Comment: Non- GFR Calc LAB L501.1115 >60 mL/min Normal EST GFR - AA 138 Result Comment: GFR Calc LAB L501.1255 ml/min Normal Estimated CRCL 66.68 LAB L501.1300 10-20 RATIO High BUN/CRE 20.6 LAB L501.1500 6.4-8. g/dL Low 2 T PROT 4.9 LAB L501.1800 3.2-5. g/dL Low 0 ALB 1.7 LAB L501.1950 2.2-4. g/dL Normal 2 GLOB 3.2 LAB L501.2000 0.9-2. RATIO Low 4 A/G 0.5 LAB L501.2200 8.5-10 mg/dL Low .1 CA 7.5 LAB L501.4100 15-37 U/L High AST 123 LAB L501.4305 45-117 U/L High ALK P 229 LAB L501.4405 16-61 U/L Normal ALT 28 LAB L501.4600 0.20-1 mg/dL High .00 T BILI 1.40 LAB L501.5300 136-14 mmol/L Normal 5 NA 136 LAB L501.5600 3.5-5. mmol/L Normal 1 K 3.8 LAB L501.5900 98-107 mmol/L Normal CL 107 LAB L501.6100 21.0-3 mmol/L Normal 2.0 CO2 21.0 LAB L501.6200 5-15 Normal GAP 8 Performed By: #### L500.4050 #### [facility] [place], [address] CBC W/DIFF, AUTOMATED Collected: 02/27/2018 Status: C Source: [place] 6:32 PM [facility] REPOSITORY TYPE CODE TESTS RESULT OUT OF RANGE REFERENCE UNITS LAB L100.1000 4.4-11.0 K/mm3 High WBC 17.6 LAB L100.1200 4.6-6.2 M/mm3 Low RBC 2.79 LAB L100.1300 13.0-16.5 g/dl Low HGB 8.2 LAB L100.1400 40-54 % Low HCT 25.7 LAB L100.1500 80-94 fL Normal MCV 92.1 LAB L100.1600 27.0-32.0 pg Normal MCH 29.4 LAB L100.1700 32-36 g/gl Low MCHC 31.9 LAB L100.1810 11.6-14.6 % High RDW CV 18.5 LAB L100.1820 35.1-43.9 fl High RDW SD 60.3 LAB L100.1900 150-450 K/mm3 Normal PLT 436 LAB L100.2000 6.2-12.0 fl Normal MPV 8.4 LAB L100.2100 47-70 % High NEUT% 84.1 LAB L100.2200 19-41 % Low LY% 4.7 LAB L100.2300 0-10 % High MONO% 10.7 LAB L100.2400 0-5 % Normal EO% 0.1 LAB L100.2500 0-1 % Normal BASO% 0.1 LAB L100.2550 0.0-0.9 % Normal IM GRAN % 0.300 Result Comment: IG% - Immature Granulocytes (promyelocytes, myelocytes and metamyelocytes) > 1% indicates that a LEFT SHIFT is Present. LAB L100.2620 2.0-7.7 X10 3/uL High Absolute Neut 14.8 LAB L100.2720 0.83-4.51 X10 3/ul Low Absolute Lymph 0.82 LAB L100.4500 Normal SMEAR COMMENT SCANNED Result Comment: MONOCYTOSIS NOTED LAB L100.9900 Normal Reviewed PATH REV Result Comment: Neutrophilic leukocytosis. Normocytic anemia. Clinical correlation necessary. Sky Guzman M.D. 02/28/18 AMENDED REPORT 02/28/18 1209 PATH REV previously reported as: Lulú barr Performed By: #### L100.0100 #### [facility] [address] [facility] [place], [address] Observed: 02/27/2018 Status: F Source: [place] CULTURE, BLOOD (WB) 6:32 PM [facility] REPOSITORY BC No growth in 5 days. Performed By: #### M200.1000 #### [facility] [address] [place], [address] URINALYSIS, COMPLETE Collected: 02/27/2018 Status: F Source: [place] 6:23 PM [facility] REPOSITORY Order Comment: Order Date: 02/27/18 COLOR OF URINE MAY AFFECT DIPSTICK RESULTS. How was Urine Obtained? CLEAN CATCH TYPE CODE TESTS RESULT OUT OF RANGE REFERENCE UNITS LAB L400.3000 Yellow COLOR Normal Jessica LAB L400.3050 Clear Normal CLARITY Clear LAB L400.3200 Normal mg/dl Normal GLUCOSE, UR Normal LAB L400.3300 Negative mg/dL High BILIRUBIN URINE 3 Result Comment: COLOR OF URINE MAY AFFECT DIPSTICK RESULTS. LAB L400.3400 Negative mg/dl High KETONE UR 5 LAB L400.3465 1.002-1.030 Normal SP.GR. DIPSTX 1.010 LAB L400.3550 5.0 - 8.0 pH Normal UR 6.5 LAB L400.3600 Negative mg/dl High PROT DIPSTX 30 LAB L400.3700 Normal mg/dl High UROBILI 8 LAB L400.3750 Negative Normal NITRITE UR Negative LAB L400.3780 Negative /ul High OCCULT 25 BLOOD-UR LAB L400.3800 Negative /ul High LEUK ESTERASE 100 LAB L400.4050 0-5 /hpf Normal WBC 0-5 SEEN LAB L400.4100 0-5 /hpf Normal RBC-UA 0-5 SEEN LAB L400.4150 0-5 /hpf Normal SQUAM EPI 0-5 SEEN LAB L400.4300 None Seen /hpf Normal BACTERIA 1+ LAB L400.4350 <or=2+ /hpf Normal MUCUS, URINE 0 SEEN Performed By: #### L400.0001 #### [facility] [address] [place], [place], [address] Observed: 02/27/2018 Status: F Source: [place] CULTURE, URINE 6:23 PM [facility] REPOSITORY Order Date: 02/27/18 Urine Culture Culture exhibits no growth. Performed By: #### M100.0650 #### [facility] [address] [facility] [place], [address] CNPN Observed: 02/26/2018 Status: COMPLETED Source: [place] 12:00 AM [facility] REPOSITORY Telephone (JOSSY) DELMI PHILLIPS ([id number]) 1950 M Date Time Provider Department 02/26/18 AKBAR MCARTHUR During your visit today, we recorded the following information about you: Akbar Mcarthur DO 02/27/2018 8:43 AM Signed Patient was receiving blood transfusion at [facility] on Tuesday. While he was there he was having difficulty voiding and bladder scan showed a residual of a proximally 700 cc. Thompson catheter was placed. Yesterday his urine culture returned positive for Streptococcus. I called his daughter Maria L yesterday letting her know I sent a prescription for amoxicillin to his pharmacy. He was given starting antibiotic yesterday. I'd like to get him to see urology at [place] or [facility] please. DO Beverly Crandall LPN 02/27/2018 8:48 AM Signed FYI- patient pulled out catheter in the middle of the night Tuesday night. was calling to let you know that he has been incontinent of urine all day yesterday (wears Depends) and has been taking the Amoxicillin. Beverly Mcarthur DO 02/27/2018 8:53 AM Signed Noted. Perhaps we could get an urgent visit today with urology here to replace Thompson. DO Sofiya Crandall Psr 02/27/2018 9:44 AM Signed First opening with [facility] is on Saturday 03/03. Luca Love is not here until 03/02 and is 100% full. Please advise. Akbar Mcarthur DO 02/27/2018 9:47 AM Signed He'll have to go to the ER to have it replaced then unless someone at [place] can see him today. DO Renuka Crandall Psr 02/27/2018 10:54 AM Signed First available in [place] is 03/21. Should patient be told to go to the ER? Beverly Rice LPN 02/27/2018 12:49 PM Addendum Patient does not need to go to ER as long as he is urinating (according to he is). Please schedule first available in [place] and notify /pt. Thank you. Beverly Church Psr 02/27/2018 2:34 PM Signed Patient has been scheduled to see Luca Love on 03/03 by Urology STEFANI Rice LPN 02/27/2018 2:49 PM Signed Patient was only to be scheduled with BARTOLO Valle, if he needed catheter replacement. Patient will eventually need a cystoscopy which Luca Love is unable to perform, hence the need to see a urologist in [place]. According to patient's , patient is urinating now and does not need to have catheter replaced. Beverly Church Psr 03/01/2018 4:00 PM Signed Spoke to who was given message below, states he is still able to urinate. wanted number to [facility], which this PSS gave her. The 03/03 apppointment with Luca Love has been canceled. Allergies As of Date: 02/26/2018 Noted Allergy Reaction SULFA (SULFONAMIDE ANTIBIOTICS) 08/25/2011 2 - Rash TIZANIDINE 06/04/2017 8 - GI Upset Date Reviewed: 02/24/2018 Reviewed by: Beverly Rice LPN - Fully Assessed Reason for Visit: Results [95] Order(s):amoxicillin (POLYMOX, AMOXIL) 500 mg capsuleTake 1 capsule by mouth three times daily for 7 days.Disp: 21 capsuleRfl: 0 Prescriptions as of 02/26/2018 Sig: AMOXICILLIN 500 MG CAPSULE Take 1 capsule by mouth three* POTASSIUM CHLORIDE ER 20 MEQ * Take 1 tablet by mouth once d* OMEPRAZOLE 40 MG CAPSULE,MALISSA* Take 1 capsule by mouth once * DABRAFENIB 75 MG CAPSULE Take 2 capsules by mouth twic* TRAMETINIB 2 MG TABLET Take 1 tablet by mouth once d* Problem List As Of Date 02/26/2018 Noted Resolved Cord compression (HCC) [G95.20] INVALID FOR* More... Nicotine use disorder, F17.2 [F17.200] INVALID FOR* Brain metastases (HCC) [C79.31] INVALID FOR* Malignant melanoma (HCC) [C43.9] INVALID FOR* Liver metastases (HCC) [C78.7] INVALID FOR* Fall [W19.XXXA] INVALID FOR*08/13/2017 More... Acute deep vein thrombosis (DVT) of femoral vei*INVALID FOR* Prescriptions ordered this encounter Disp Refills Start End AMOXICILLIN 500 MG CAPSULE 21 c* 0 02/26/2018 03/05/2018 Route: ORAL Sig: Take 1 capsule by mouth three times daily for 7 days. Encounter Status:Closed by RENUKA CASTELAN on 02/27/18 LD Collected: 02/24/2018 Status: F Source: [facility] 4:47 PM [facility] REPOSITORY TYPE CODE TESTS RESULT OUT OF RANGE REFERENCE UNITS LAB LD 135-225 U/L High LD 1593 IRON AND TIBC Collected: 02/24/2018 Status: F Source: [place] 4:46 PM [facility] REPOSITORY TYPE CODE TESTS RESULT OUT OF REFERENCE UNITS RANGE LAB IRN 41-186 ug/dL Iron 43 LAB TIBC 232-386 ug/dL Low TIBC 162 LAB SAT 15-57 % Transferrin Saturatn 27 Performed By: #### IRON, FERR, RETIC, B12 #### [facility] [address] [address] FERRITIN Collected: 02/24/2018 Status: F Source: [place] 4:46 PM [facility] REPOSITORY TYPE CODE TESTS RESULT OUT OF REFERENCE UNITS RANGE LAB FERR 30.3-565.7 ng/mL Ferritin 262.1 Performed By: #### IRON, FERR, RETIC, B12 #### [place] [address] RETICULOCYTE Collected: 02/24/2018 Status: F Source: [place] 4:46 PM [facility] REPOSITORY TYPE CODE TESTS RESULT OUT OF REFERENCE UNITS RANGE LAB RETC 0.4-2.0 % High Retic% 5.1 LAB ABRET 0.0180-0.1000 M/uL High Abs Retic 0.107 Performed By: #### IRON, FERR, RETIC, B12 #### [place] [address] VITAMIN B12 Collected: 02/24/2018 Status: F Source: [place] 4:46 PM [facility] REPOSITORY TYPE CODE TESTS RESULT OUT OF REFERENCE UNITS RANGE LAB B12 232-1245 pg/mL High Vitamin B12 >2000 Performed By: #### IRON, FERR, RETIC, B12 #### [place] [address] TYPE AND SCREEN Collected: 02/24/2018 Status: P Source: [place] 3:55 PM [facility] REPOSITORY Order Comment: PRETRANSFUSION HGB = 5.8 HCT = 20.1 PERFORMED AT [facility] CMV NEG?* N Give When? 02/25 @ 0930 Irradiated? N Leukodepleted? Y Reason for Type AND Screen/Red Cells: ANEMIA TYPE CODE TESTS RESULT OUT OF RANGE REFERENCE UNITS LAB B10.0800 O Normal BLOOD TYPE GEL NEGATIVE LAB B100.4000 Normal Antibody NEGATIVE Screen Performed By: #### B101.7450 #### [facility] [address] [place], [address] TYPE AND SCREEN Collected: 02/24/2018 Status: F Source: [place] 3:55 PM [facility] REPOSITORY Order Comment: PRETRANSFUSION HGB = 5.8 HCT = 20.1 PERFORMED AT [facility] CMV NEG?* N Give When? 02/25 @ 0930 Irradiated? N Leukodepleted? Y Reason for Type AND Screen/Red Cells: ANEMIA TYPE CODE TESTS RESULT OUT OF RANGE REFERENCE UNITS LAB B10.0800 O Normal BLOOD TYPE GEL NEGATIVE LAB B100.4000 Normal Antibody NEGATIVE Screen Performed By: #### B101.7450 #### [facility] [address] [place], [address] RC Collected: 02/24/2018 Status: F Source: [place] 3:55 PM [facility] REPOSITORY TYPE CODE TESTS RESULT OUT OF REFERENCE UNITS RANGE LAB U100.0000 [id number] TRANSFUSED PRODUCT: T AND S with Crossmatch, Red Cells COUNT: 2 Performed By: #### U100.0000 #### [facility] - refer to report for specific site PROGRESS Observed: 02/24/2018 Status: COMPLETED Source: [place] 3:24 PM [facility] REPOSITORY HNO ID: [id number] Author: Akbar Mcarthur Service: (none) Author Type: Physician Type: Progress Notes Filed: 02/27/2018 8:13 AM Note Text: Diagnosis: 1) Metastatic melanoma. HPI: The patient is a 67-year-old male who has a past medical history significant for alcohol dependence who the day after Thanks[place] stumbled when coming down a set of steps. Following that he noticed progressive pain in the left upper chest. He was seen by his primary care physician and underwent a CT scan of the chest on 05/11/2017. That study demonstrated numerous bilateral areas of pleural-based and parenchymal nodularity measuring 2-7 mm in size. There was no calcification or cavitation noted. Ascending aorta was mildly ectatic and measured at 38 mm. There was mild prominence of the central pulmonary artery. In the high posterior) midline dorsal region was in the approximate T2 area there was a subcutaneous soft tissue mass measuring 34 x 25 mm. This was thought to possibly be a large sebaceous cyst. There was a comminuted fracture with approximate 40% volume loss of what appeared to be T4. This involved the left side and relatively blastic in appearance. The patient also underwent a CT scan of the abdomen and pelvis on 05/25/2017. That study demonstrated multiple hypodense nodules in the liver suggestive of diffuse metastatic disease. There were also several peripheral nodules in the spleen that were hypodense suggestive of metastatic changes well. Bladder was mildly distended. The patient was having progressive lower tissue weakness therefore admitted to [facility] 06/04/2017. MRI of the spine: Cervical spine: Focus of marrow signal abnormality at C4 compatible with bony metastasis. ?No pathologic enhancement in the cervical cord. ?Severe degenerative disc disease in the lower cervical spine with Canal stenosis is worst at C5-C6. Thoracic spine: Multiple areas of abnormal marrow signal in the MID thoracic vertebrae. ?T4 is most affected which shows a 50% pathologic compression fracture with abnormal epidural metastatic soft tissue. ?This results in moderate CORD compression at this level without evidence for cord signal abnormality. No evidence of leptomeningeal disease in the thoracic CORD. Lumbar spine: Bony metastasis at the S2 segment. ?Lumbar vertebrae show no evidence of metastatic disease. ?No evidence of leptomeningeal disease. ?Severe neural foraminal stenoses at right L4-L5 and bilateral L5-S1 due to degenerative disc and facet disease. ?No pathologic enhancement involving conus medullaris or cauda equina. Incidentally noted 1.5 cm enhancing lesion in the right lobe of the liver. ?This is suspicious for an additional metastatic focus. He was discharged but presented to emergency room at [facility] a day later with complaints of progressive weakness of the left arm. He was transferred back to [facility] where he underwent a brain MRI that disclosed at least 8 parenchymal brain metastases. His pain was under good control and his spine was thought to be stable for discharge. Plan was for outpatient radiation. Biopsy sample from the liver which was taken during his first hospitalization returned as metastatic melanoma. Previous therapy: 1) WBRT and palliative radiation T2-T5. 2) Keytruda. 3) Palliative RT to the sacrum completed December 2017. 4) s/p gamma knife to 10 brain metastases completed 02/01/2018. Current therapy: 1) Dabrafenib/trametinib. Began 09/19/2017. Presents for ongoing oncologic management. Interim history: Diagnosed with acute proximal DVT in the common femoral vein as well as in the femoral vein from proximal to mid area on the left side. He has been on Xarelto 15 mg daily because of the higher dose caused excessive bruising which is very distressful to the patient and his . In November he was complaining of erectile dysfunction followed by urinary and stool incontinence which had been going on for about 2 months. An MRI was performed of the lumbar spine which demonstrated metastasis at S2 with cortical disruption posteriorly along the S2 vertebrae with increased soft tissue in the epidural space consistent with epidural extension. He completed a course of external beam palliative radiation for this. Surveillance MRI of the brain on 01/18/2018 demonstrated response to previous brain metastases but interval development of multiple new parenchymal metastases. Has complained today of intermittent gross hematuria and has been going on for at least 2-3 months. He denies fever. He's been having increasing dysuria as part of the hematuria. He denies any other unusual bleeding particularly melena and hematochezia. He has not had unexplained bruising. No leg swelling or edema. He's been feeling weaker however. He denies shortness of breath at rest or with walking. However is not capable walking for due to generalized weakness. His appetite is been fair at best. However weight is up about 5 pounds. He's now completely tapered off steroids. His family brings to my attention that he's had left-sided foot drop for several months as well and this is limited to many falls around the home. PMH, medications and allergies personally reviewed by me today. Any changes documented in appropriate section. ROS: Constitutional: See above. Neuro: Denies DIAZ, vertigo, dizziness. HEENT: No recent change in voice, vision or hearing. Resp: See above. CVS: Denies exertional chest pain, PND, orthopnea. GI: Denies dysgeusia. Denies symptoms of stomatitis. Denies dysphagia and odynophagia. : Denies dysuria or gross hematuria. No symptoms of bladder outlet obstruction. Endo: Denies hot flashes. Denies polyuria and polydipsia. Denies heat and cold intolerance. Musculoskeletal: See above. Derm: Denies rash. Denies jaundice and diffuse pruritis. Heme: See above. Psych: Normal mood. PHYSICAL EXAM: Vitals: Blood pressure 90/67, pulse 102, temperature (!) 35.9 ?C (96.7 ?F), temperature source Temporal Artery, weight 65.8 kg (145 lb). Thin and frail appearing and in no acute distress. EYES: Sclerae are anicteric bilaterally. ENT: Oral mucosa is unremarkable. There is no sign of thrush or mucositis. NECK: Supple. LYMPHATIC: There is no palpable cervical or supraclavicular adenopathy. RESPIRATORY: Inspiratory breath sounds are of diminished intensity in all springer. No rales, wheezes or rhonchi. CARDIOVASCULAR: Rhythm is regular. Normal intensity S1/S2. There is no gallop or murmur. ABDOMEN: The abdomen is nondistended. No organomegaly. No tenderness. Extremities: No swelling or edema. SKIN: No jaundice or rash. No petechiae. NEUROLOGIC: Generalized decreased strength of the legs--weaker dorsiflexion left foot. Patellar DTRs are normal. MUSCULOSKELETAL: Mild generalized muscle wasting. ASSESSMENT/PLAN: (C43.9) Malignant melanoma, unspecified site (HCC) (primary encounter diagnosis) (C78.7) Liver metastases (HCC) Assessment: -KPS is 50-60% -BRAF mutated but not classic V600 mutation. -Tolerating dabrafenib and trametinib very well without any symptomatic side effect. -CT scans 11/07/2017 demonstrated significant response. -He continues to tolerate dabrafenib and trametinib symptomatically very well, unclear as to how much if at all they're contributing to the anemia. Plan: -Due for CT scans. -Previously referred to Dr. Zena Mukherjee for skin surveillance exams. (C79.31) Brain metastases (HCC) Assessment: -Previous WBRT and recent GK to 10 metastases completed 02/01/2018. -Doing well with no clear neurologic symptoms--generalized and LE weakness chronic. -Off prednisone and dexamethasone. Plan: -Re: Scheduled for follow-up brain MRI at the end of March. (I82.412) Acute deep vein thrombosis (DVT) of femoral vein of left lower extremity (HCC) Assessment: -Asymptomatic. Plan: -Stop AC for now due to gross hematuria and significant anemia. (R31.0) Gross hematuria Assessment: -New subacute symptom. Plan: -UA and culture today. -Urology referral. (D64.9) Anemia, unspecified type Assessment: -Out of proportion for what one would expect with gross hematuria. Plan: -Transfuse 2 units RBCs. -Check hematinics. (M21.372) Left foot drop Assessment: -Chronic. Plan: -AFO brace ordered. Akbar Mcarthur, DO URINALYSIS WITH Collected: 02/24/2018 Status: F Source: [place] MICROSCOPIC 3:13 PM [facility] REPOSITORY TYPE CODE TESTS RESULT OUT OF RANGE REFERENCE UNITS LAB UCOL Yellow Color Abnormal Jessica Alert LAB [facility] Clear Clarity Abnormal Cloudy Alert LAB UGLUC Negative mg/dL Glucose, Urine Negative LAB UBIL Negative Bilirubin, Urine Negative LAB UKET Negative Ketones, Urine Negative LAB USPG 1.005-1.030 Specific [place], Ur 1.018 LAB UHGB Negative Abnormal Hemoglobin/Blood, 1+ Alert Ur LAB UPH 4.5-8.0 pH 5.0 LAB UPROT Negative mg/dL Protein, Abnormal Urine 30 Alert LAB UUROB Normal Abnormal Urobilinogen Elevated Alert LAB UNITR Negative Nitrites Negative LAB ULKEST Negative Leukest Abnormal 2+ Alert LAB UCOM Comments SEE COMMENT Result Comment: N/A LAB UMCOM Urine SEE Brown Comment COMMENT Result Comment: Result rechecked. LAB UWBC 0-5 /HPF Abnormal Alert WBC 11-25 LAB URBC 0-3 /HPF Abnormal Alert RBC 11-25 LAB UCAST 0 /LPF Abnormal Alert Cast SEE COMMENT Result Comment: >10 Hyaline Cast Performed By: #### UAWMIC #### [facility] [address] [place], [place] [address] Observed: 02/24/2018 Status: F Source: [place] URINE CULTURE 3:13 PM [facility] REPOSITORY Sp. Request/Comment: - Specimen received in preservative Culture Result - >=100,000 CFU/ml Streptococcus agalactiae (Group B streptococcus) --> ABNORMAL ALERT Susceptibility testing not performed on beta hemolytic streptococci due to predictable suscept ibility to penicillin and other beta lactams. For testing, call Microbiology within 72 hours. --> ABNORMAL ALERT Performed By: #### URCUL #### [facility] [address] [place], [place] [address] CNOVSP Observed: 02/24/2018 Status: COMPLETED Source: [place] 3:10 PM [facility] REPOSITORY Visit (SP) Office (HEMAWS) ALANDELMI Nae ([id number]) 1950 M Date Time Provider Department 02/24/18 3:10 PM AKBAR MCARTHUR During your visit today, we recorded the following information about you: Temperature Pulse Blood pressure Weight 96.7 degrees 102/minute 90/67 65.8 kg Beverly Rice LPN 02/24/2018 3:34 PM Signed Est patient. Two month office visit. Discuss recent labs. Beverly Mcarthur DO 02/27/2018 8:13 AM Signed Diagnosis: 1) Metastatic melanoma. HPI: The patient is a 67-year-old male who has a past medical history significant for alcohol dependence who the day after Thanks stumbled when coming down a set of steps. Following that he noticed progressive pain in the left upper chest. He was seen by his primary care physician and underwent a CT scan of the chest on 05/11/2017. That study demonstrated numerous bilateral areas of pleural-based and parenchymal nodularity measuring 2-7 mm in size. There was no calcification or cavitation noted. Ascending aorta was mildly ectatic and measured at 38 mm. There was mild prominence of the central pulmonary artery. In the high posterior) midline dorsal region was in the approximate T2 area there was a subcutaneous soft tissue mass measuring 34 x 25 mm. This was thought to possibly be a large sebaceous cyst. There was a comminuted fracture with approximate 40% volume loss of what appeared to be T4. This involved the left side and relatively blastic in appearance. The patient also underwent a CT scan of the abdomen and pelvis on 05/25/2017. That study demonstrated multiple hypodense nodules in the liver suggestive of diffuse metastatic disease. There were also several peripheral nodules in the spleen that were hypodense suggestive of metastatic changes well. Bladder was mildly distended. The patient was having progressive lower tissue weakness therefore admitted to [facility] 06/04/2017. MRI of the spine: Cervical spine: Focus of marrow signal abnormality at C4 compatible with bony metastasis. ?No pathologic enhancement in the cervical cord. ?Severe degenerative disc disease in the lower cervical spine with Canal stenosis is worst at C5-C6. Thoracic spine: Multiple areas of abnormal marrow signal in the MID thoracic vertebrae. ?T4 is most affected which shows a 50% pathologic compression fracture with abnormal epidural metastatic soft tissue. ?This results in moderate CORD compression at this level without evidence for cord signal abnormality. No evidence of leptomeningeal disease in the thoracic CORD. Lumbar spine: Bony metastasis at the S2 segment. ?Lumbar vertebrae show no evidence of metastatic disease. ?No evidence of leptomeningeal disease. ?Severe neural foraminal stenoses at right L4-L5 and bilateral L5-S1 due to degenerative disc and facet disease. ?No pathologic enhancement involving conus medullaris or cauda equina. Incidentally noted 1.5 cm enhancing lesion in the right lobe of the liver. ?This is suspicious for an additional metastatic focus. He was discharged but presented to emergency room at [facility] a day later with complaints of progressive weakness of the left arm. He was transferred back to [facility] where he underwent a brain MRI that disclosed at least 8 parenchymal brain metastases. His pain was under good control and his spine was thought to be stable for discharge. Plan was for outpatient radiation. Biopsy sample from the liver which was taken during his first hospitalization returned as metastatic melanoma. Previous therapy: 1) WBRT and palliative radiation T2-T5. 2) Keytruda. 3) Palliative RT to the sacrum completed December 2017. 4) s/p gamma knife to 10 brain metastases completed 02/01/2018. Current therapy: 1) Dabrafenib/trametinib. Began 09/19/2017. Presents for ongoing oncologic management. Interim history: Diagnosed with acute proximal DVT in the common femoral vein as well as in the femoral vein from proximal to mid area on the left side. He has been on Xarelto 15 mg daily because of the higher dose caused excessive bruising which is very distressful to the patient and his . In November he was complaining of erectile dysfunction followed by urinary and stool incontinence which had been going on for about 2 months. An MRI was performed of the lumbar spine which demonstrated metastasis at S2 with cortical disruption posteriorly along the S2 vertebrae with increased soft tissue in the epidural space consistent with epidural extension. He completed a course of external beam palliative radiation for this. Surveillance MRI of the brain on 01/18/2018 demonstrated response to previous brain metastases but interval development of multiple new parenchymal metastases. Has complained today of intermittent gross hematuria and has been going on for at least 2-3 months. He denies fever. He's been having increasing dysuria as part of the hematuria. He denies any other unusual bleeding particularly melena and hematochezia. He has not had unexplained bruising. No leg swelling or edema. He's been feeling weaker however. He denies shortness of breath at rest or with walking. However is not capable walking for due to generalized weakness. His appetite is been fair at best. However weight is up about 5 pounds. He's now completely tapered off steroids. His family brings to my attention that he's had left-sided foot drop for several months as well and this is limited to many falls around the home. PMH, medications and allergies personally reviewed by me today. Any changes documented in appropriate section. ROS: Constitutional: See above. Neuro: Denies DIAZ, vertigo, dizziness. HEENT: No recent change in voice, vision or hearing. Resp: See above. CVS: Denies exertional chest pain, PND, orthopnea. GI: Denies dysgeusia. Denies symptoms of stomatitis. Denies dysphagia and odynophagia. : Denies dysuria or gross hematuria. No symptoms of bladder outlet obstruction. Endo: Denies hot flashes. Denies polyuria and polydipsia. Denies heat and cold intolerance. Musculoskeletal: See above. Derm: Denies rash. Denies jaundice and diffuse pruritis. Heme: See above. Psych: Normal mood. PHYSICAL EXAM: Vitals: Blood pressure 90/67, pulse 102, temperature (!) 35.9 ?C (96.7 ?F), temperature source Temporal Artery, weight 65.8 kg (145 lb). Thin and frail appearing and in no acute distress. EYES: Sclerae are anicteric bilaterally. ENT: Oral mucosa is unremarkable. There is no sign of thrush or mucositis. NECK: Supple. LYMPHATIC: There is no palpable cervical or supraclavicular adenopathy. RESPIRATORY: Inspiratory breath sounds are of diminished intensity in all springer. No rales, wheezes or rhonchi. CARDIOVASCULAR: Rhythm is regular. Normal intensity S1/S2. There is no gallop or murmur. ABDOMEN: The abdomen is nondistended. No organomegaly. No tenderness. Extremities: No swelling or edema. SKIN: No jaundice or rash. No petechiae. NEUROLOGIC: Generalized decreased strength of the legs--weaker dorsiflexion left foot. Patellar DTRs are normal. MUSCULOSKELETAL: Mild generalized muscle wasting. ASSESSMENT/PLAN: (C43.9) Malignant melanoma, unspecified site (HCC) (primary encounter diagnosis) (C78.7) Liver metastases (HCC) Assessment: -KPS is 50-60% -BRAF mutated but not classic V600 mutation. -Tolerating dabrafenib and trametinib very well without any symptomatic side effect. -CT scans 11/07/2017 demonstrated significant response. -He continues to tolerate dabrafenib and trametinib symptomatically very well, unclear as to how much if at all they're contributing to the anemia. Plan: -Due for CT scans. -Previously referred to Dr. Zena Mukherjee for skin surveillance exams. (C79.31) Brain metastases (HCC) Assessment: -Previous WBRT and recent GK to 10 metastases completed 02/01/2018. -Doing well with no clear neurologic symptoms--generalized and LE weakness chronic. -Off prednisone and dexamethasone. Plan: -Re: Scheduled for follow-up brain MRI at the end of March. (I82.412) Acute deep vein thrombosis (DVT) of femoral vein of left lower extremity (HCC) Assessment: -Asymptomatic. Plan: -Stop AC for now due to gross hematuria and significant anemia. (R31.0) Gross hematuria Assessment: -New subacute symptom. Plan: -UA and culture today. -Urology referral. (D64.9) Anemia, unspecified type Assessment: -Out of proportion for what one would expect with gross hematuria. Plan: -Transfuse 2 units RBCs. -Check hematinics. (M21.372) Left foot drop Assessment: -Chronic. Plan: -AFO brace ordered. Akbar Mcarthur DO Referring Provider: AKBAR MCARTHUR [[id number]] Allergies As of Date: 02/24/2018 Noted Allergy Reaction SULFA (SULFONAMIDE ANTIBIOTICS) 08/25/2011 2 - Rash TIZANIDINE 06/04/2017 8 - GI Upset Date Reviewed: 02/24/2018 Reviewed by: Beverly Rice LPN - Fully Assessed Reason for Visit: Established Patient [175] Primary Visit Diagnosis:Malignant melanoma, unspecified site (HCC) [C43.9] Other Visit Diagnoses:Brain metastases (HCC) [C79.31] Gross hematuria [R31.0] Anemia, unspecified type [D64.9] Malignant melanoma of skin (HCC) [C43.9] Left foot drop [M21.372] Order(s):URINE CULTURE [SQURCUL] Order #: [id number]. #:[id number] URINALYSIS WITH MICROSCOPIC [SQUAWMIC] Order #: [id number]. #:[id number] [id number] + TIBC [SQIRON] Order #: [id number] FUTURE FERRITIN BLD [SQFERR] Order #: [id number] FUTURE VITAMIN B12 BLOOD [SQB12] Order #: [id number] FUTURE LD LACTATE DEHYDRO [SQLD6] Order #: [id number] FUTURE RETIC COUNT [SQRETIC] Order #: [id number] FUTURE CT ABD/PEL W IVCON [2460468] Order #: [id number] FUTURE CT CHEST W IVCON [9307349] Order #: [id number] FUTURE [] iv contrast (will be provided with radiology test)CT Chest ABD/PEL-Inject, intravenously, once for 1 dose.No IV access, insert saline lock prior to the beginning of sedation, infusion, injection of imaging exam. Discontinue saline lock post exam. If Pt. has a central line or IVAD, may access for administration according to line specific nursing protocol. Once exam is complete flush line and de-access according to line specific nursing protocol in the CT contrast administration guidelines link.Disp: 1 EachRfl: 0 [] enteric contrast (will be provided with radiology test)For CT CHESTABD/PEL W IVCON Routine order Administer, As Directed One Time Only, via Oral, Rectal, both Oral and Rectal, Enteric Tube, Stoma or Indwelling Catheter, Enteric Contrast as designated per enteric contrast guidelinesDisp: 1 EachRfl: 0 OCCULT BLD EXAM-DIAG [SQOB] Order #: [id number] FUTURE OCCULT BLD EXAM-DIAG [SQOB] Order #: [id number] FUTURE OCCULT BLD EXAM-DIAG [SQOB] Order #: [id number] FOOT DROP SPLINT,RECUM POSN DEV [[id number]] Order #: [id number] Follow-up and Disposition History Recorded Prescriptions as of 02/24/2018 Sig: OMEPRAZOLE 40 MG CAPSULE,MALISSA* Take 1 capsule by mouth once * DABRAFENIB 75 MG CAPSULE Take 2 capsules by mouth twic* TRAMETINIB 2 MG TABLET Take 1 tablet by mouth once d* IV CONTRAST (RADIOLOGY PROCED* CT Chest ABD/PEL-Inject, intr* ENTERIC CONTRAST (RADIOLOGY P* For CT CHESTABD/PEL W IVCON R* Problem List As Of Date 02/24/2018 Noted Resolved Cord compression (HCC) [G95.20] INVALID FOR* More... Nicotine use disorder, F17.2 [F17.200] INVALID FOR* Brain metastases (HCC) [C79.31] INVALID FOR* Malignant melanoma (HCC) [C43.9] INVALID FOR* Liver metastases (HCC) [C78.7] INVALID FOR* Fall [W19.XXXA] INVALID FOR*08/13/2017 More... Acute deep vein thrombosis (DVT) of femoral vei*INVALID FOR* Visit Notes: >> Beverly Rice LPN TueFeb 24, 2018 3:22 PM Status: Signed Est patient. Two month office visit. Discuss recent labs. Beverly Rice LPN Encounter Status:Closed by AKBAR MCARTHUR DO on 02/27/18 WENDY ABS GR + CBC Collected: 02/24/2018 Status: F Source: [facility] 2:59 PM [facility] REPOSITORY TYPE CODE TESTS RESULT OUT OF REFERENCE UNITS RANGE LAB WWBC 3.70-11.00 k/uL [place] WBC 8.53 LAB WRBC 4.20-6.00 m/uL Low Wendy RBC 2.11 LAB WHGB 13.0-17.0 g/dL Low [place] Alert Hemoglobin 5.8 Result Comment: Rechecked, called to and read back by: ROB PABLO,[id number],BYPARI LAB WHCT 39.0-51.0 % [place] Low Hematocrit 20.1 LAB WMCV 80.0-100.0 fL [place] MCV 95.3 LAB WMCH 26.0-34.0 pg [place] MCH 27.5 LAB WMCHC 30.5-36.0 g/dL [place] Low MCHC 28.9 Result Comment: Result checked and verified LAB WRDW 11.5-15.0 % High Wendy RDW 18.7 LAB WPLT 150-400 k/uL High [place] 495 Platelet Cnt LAB WMPV 9.0-12.7 fL Low Wendy MPV 8.8 Result Comment: Test performed at: [facility], [address] [place] [address]. LAB ABGRAN 1.45-7.50 k/uL Absol Gran 6.61 Count COMP METABOLIC PANEL Collected: 02/24/2018 Status: F Source: [place] 2:59 PM [facility] REPOSITORY TYPE CODE TESTS RESULT OUT OF REFERENCE UNITS RANGE LAB TP 6.3-8.0 g/dL Protein, Low Total 4.7 LAB ALB 3.9-4.9 g/dL Albumin Low 2.3 LAB CA 8.5-10.2 mg/dL Calcium, Low Total 8.1 LAB TBIL 0.2-1.3 mg/dL Bilirubin, Total 1.1 LAB ALKP 38-113 U/L Alkaline High Phosphatase 250 LAB AST 14-40 U/L AST High 57 LAB GLU 74-99 mg/dL Glucose High 183 LAB BUN 9-24 mg/dL BUN 13 LAB CRET 0.73-1.22 mg/dL Creatinine Low 0.70 LAB NA 136-144 mmol/L Sodium 136 LAB K 3.7-5.1 mmol/L Potassium Low 3.5 LAB CL 97-105 mmol/L Chloride High 107 LAB CO2 22-30 mmol/L CO2 Low 18 LAB AGAP 9-18 mmol/L Anion Gap 11 LAB ALT 10-54 U/L ALT 27 LAB GFRAA eGFR- >60 Amer. LAB GFRNAA . eGFR-All Other Races >60 Result Comment: eGFR (Estimated GFR) Units of measure: mL/min/1.73 meters squared eGFR is derived from the reexpressed MDRD Study equation using the following parameters: serum creatinine, age, gender and race. The creatinine assay has been calibrated to be traceable to IDMS. An eGFR <60 mL/min/1.73m2 for >3 months is consistent with chronic kidney disease. Refer to KDOQI guidelines for clinical interpretation. In patients with unstable renal function, e.g. those with acute kidney injury, the eGFR may not accurately reflect actual GFR. EMERGENCY DEPARTMENT Observed: 02/20/2018 Status: F Source: [place] SUMMARY 2:54 PM [facility] Medical Records Department [address] [place] [address] Emergency Department Summary 02/17/18 1541 MR#: [id number] Acct: [id number] Name: DELMI PHILLIPS Rep #: [id number] : 1950 67 From: Aron Denney DO PCP: JATINDER Connolly Status: DEP ER - ER Visit Summary Date of Service: 02/17/18 Chief Complaint: Right hip pain History of Present Illness: The patient is a 67 M who is on Xarelto and has a history of metastatic melanoma. 2 weeks ago after being discharged from the hospital where he had gamma knife surgery the patient sustained a fall onto his left hip. He denies hitting his head. He notes that he has had continued pain in the right hip with motion. He states that he uses a walker. Family brings him in. Patient points to the lateral aspect of the thigh and the hip as the source of his pain. Physical Examination: Afebrile vital signs are stable Patient has no pain with logroll. He has tenderness over the greater trochanter. I am able to flex and extend the hip. He has most a lot of pain with AB and adduction. Test Results: X-rays of the pelvis and femur were negative for fracture. Emergency Department Course and Treatment: At home. His prefers Tylenol. Talked about joint effusion and what it could represent. Patient will follow-up if he is not improving. He may need an MRI if he does not improve. Impression: 1. Right hip contusion 2. Right hip effusion This note was generated with Qype dictation software. It may contain incorrect words, spelling, and punctuation that were not noted in review of the chart prior to signing ED Disposition - Plan for ED Patient: Disposition: Home or Assisted Living Chief Complaint: Fall Instructions: ED Contusion Hip Referrals: Jerry Aguirre NP-C [Primary Care Provider] - 1 Week if not improving What to do if you have Problems For any increased pain, shortness of breath, bleeding, nausea or vomiting, chest pain, or any unexpected problems, contact your Primary Care Provider. Call [facility] ([phone]) or report to the closest Emergency Room. Call 911 if necessary. 02/20/18 1456 <Electronically signed by Aron Denney DO> Date Aron Denney DO Cosigner Signature (If Indicated): Date CC: JATINDER Aguirre PELVIS 1 OR 2 VIEWS Observed: 02/17/2018 Status: F Source: [place] 2:23 PM [facility] Imaging Services [address] [place], [place] [address] [address] Pelvis 1 or 2 Views MR#: [id number] Acct: [id number] Name: DELMI PHILLIPS Rep #: [id number] : 1950 M 67 From: Yuniel Moctezuma MD PCP: JATINDER Connolly Status: PRE ER Study: Pelvis 1 or 2 Views Date of Exam: 02/17/18 Exam# [id number] Ordering Dr: Aron Denney DO STUDY: X-RAY - PELVIS REASON FOR EXAM: Male, 67 years old. Trauma, fall 2 weeks ago with pain in the right hip. TECHNIQUE: One view of the pelvis was obtained. COMPARISON: None. FINDINGS: Generalized osteopenia. Low lumbar degenerative disc disease and facet arthropathy at L4-L5 and L5-S1. Mild symmetric degenerative features of the SI joints. The sacral ala appear symmetric and intact. Iliac crests intact. Acetabula are intact. No evidence of pubic ramus fracture. Left proximal femur intact. Mild degenerative features. Right hip: There appears to be mild distention of the right hip joint space superior to the femoral head and lateral to this. Acetabular margin which may indicate the presence of joint effusion. There is no visible fracture. There are mild degenerative features of the right hip particularly should including mild joint margin osteophytic lipping and small subcortical acetabular cysts. There is a small synovial herniation pit of the superior aspect of the femoral head-neck junction. RAD/Pelvis 1 or 2 Views IMPRESSION: Prominence of the right hip periarticular soft tissue silhouette suggesting the possibility of right hip effusion. Mild degenerative features of the right and left hip joints. Low lumbar spondylosis. No visible hip or pelvic fracture. Electronically Signed: Yuniel Moctezuma, at 14:53 EST Tel , Service support , CC: JATINDER Aguirre; Aron Denney DO Senior Piping Designer: Signed FEMUR MIN 2 VIEWS Observed: 02/17/2018 Status: F Source: [place] 2:23 PM [facility] Imaging Services [address] [place] [id number] Femur Min 2 Views MR#: [id number] Acct: [id number] Name: DELMI PHILLIPS Rep #: [id number] : 1950 M 67 From: Yuniel Moctezuma MD PCP: JATINDER Connolly Status: PRE ER Study: Femur Min 2 Views Date of Exam: 02/17/18 Exam# [id number] Ordering Dr: Aron Denney DO STUDY: XR FEMUR, RIGHT RIGHT REASON FOR EXAM: Male, 67 years old. Fall 2 weeks ago, pain in the right hip and proximal femur. TECHNIQUE: 4 views of the right femur. COMPARISON: Frontal pelvis same date. FINDINGS: Right total knee arthroplasty. The prosthetic components appear to be normally seated and articulated. There is no evidence of fracture about the knee and no evidence of effusion. There are prominent peripheral vascular calcifications of the femoral arterial distribution. The femoral shaft is intact. There is no radiographic evidence of femoral neck or intertrochanteric fracture. There are minimal degenerative features of the right hip joint. There is mildly increased prominence of the soft tissue silhouette associated with superior right hip joint capsule which could reflect the presence of effusion. There is no visible pubic ramus fracture. RAD/Femur Min 2 Views IMPRESSION: Mild right hip joint capsule soft tissue prominence may reflect the presence of hip joint effusion. No visible hip, femur or knee fracture. Peripheral arterial disease. Electronically Signed: Yuniel Moctezuma, at 14:55 EST Tel , Service support , CC: JATINDER Aguirre; Aron Denney DO Senior Piping Designer: Signed PROGRESS Observed: 02/02/2018 Status: COMPLETED Source: [place] 12:00 AM [facility] REPOSITORY HNO ID: [id number] Author: Phyllis Garcia Service: Radiation Oncology Author Type: Physician Type: Progress Notes Filed: 02/03/2018 12:34 AM Note Text: DELMI PHILLIPS [id number] 02/02/2018 [facility] [place]/Department of Radiation Oncology RADIATION ONCOLOGY - COMPLETION NOTE DATE OF TREATMENT: February 01, 2018 UNIT: Gamma Knife AREA TREATED: 1) right frontal. 2) left frontal 1. 3) left frontal 2. 4) left frontal 3. 5) right frontal 2. 6) right parietal. 7) right daylin. 8) left temporal. 9) left occipital. 10) left cerebellar. DISEASE: 67yo M with metastatic melanoma (Braf [id number], Nras and c-kit wt) with widespread metastases including in brain and spine s/p WBRT (37.5 Gy) and T2-T5 RT (30Gy) both in 06/2017 and L5- sacrum RT (30Gy) completed 12/15/2017. He received keytruda, now on dabrafinib and trametinib with brain progression. DELIVERED DOSE: 1. 2400.0 cGy was prescribed to the 92% isodose line, which covered 100% of the target. The plan utilized 2 shots using 8 mm and 4 mm sectors. Target volume = 0.005 cc. Maximum dose = 2610.0 cGy. Maximum diameter = 0.23 cm. MD/PD = 1.088. PIV/TV = 3.800. Gradient Index = 16.3. Number of Fractions = 1. 2. 2400.0 cGy was prescribed to the 91% isodose line, which covered 100% of the target. The plan utilized 9 shots using 16 mm, 8 mm and 4 mm sectors. Target volume = 0.11 cc. Maximum dose = 2640.0 cGy. Maximum diameter = 0.56 cm. MD/PD = 1.100. PIV/TV = 2.109. Gradient Index = 16.4. Number of Fractions = 1. 3. 2400.0 cGy was prescribed to the 90% isodose line, which covered 100% of the target. The plan utilized 8 shots using 16 mm, 8 mm and 4 mm sectors. Target volume = 0.044 cc. Maximum dose = 2670.0 cGy. Maximum diameter = 0.49 cm. MD/PD = 1.113. PIV/TV = 2.477. Gradient Index = 18.7. Number of Fractions = 1. 4. 2400.0 cGy was prescribed to the 87% isodose line, which covered 100% of the target. The plan utilized 3 shots using 8 mm and 4 mm sectors. Target volume = 0.021 cc. Maximum dose = 2760.0 cGy. Maximum diameter = 0.87 cm. MD/PD = 1.150. PIV/TV = 2.905. Gradient Index = 11. Number of Fractions = 1. 5. 2400.0 cGy was prescribed to the 91% isodose line, which covered 100% of the target. The plan utilized 3 shots using 8 mm and 4 mm sectors. Target volume = 0.009 cc. Maximum dose = 2640.0 cGy. Maximum diameter = 0.45 cm. MD/PD = 1.100. PIV/TV = 2.778. Gradient Index = 17.1. Number of Fractions = 1. 6. 2400.0 cGy was prescribed to the 91% isodose line, which covered 100% of the target. The plan utilized 4 shots using 16 mm, 8 mm and 4 mm sectors. Target volume = 0.056 cc. Maximum dose = 2640.0 cGy. Maximum diameter = 0.48 cm. MD/PD = 1.100. PIV/TV = 1.679. Gradient Index = 19.5. Number of Fractions = 1. 7. 2400.0 cGy was prescribed to the 92% isodose line, which covered 100% of the target. The plan utilized 2 shots using 8 mm and 4 mm sectors. Target volume = 0.008 cc. Maximum dose = 2610.0 cGy. Maximum diameter = 0.29 cm. MD/PD = 1.088. PIV/TV = 2.250. Gradient Index = 26.7. Number of Fractions = 1. 8. 2400.0 cGy was prescribed to the 53% isodose line, which covered 100% of the target. The plan utilized 6 shots using 8 mm and 4 mm sectors. Target volume = 0.33 cc. Maximum dose = 4530.0 cGy. Maximum diameter = 0.8 cm. MD/PD = 1.887. PIV/TV = 2.182. Gradient Index = 3.4. Number of Fractions = 1. 9. 2400.0 cGy was prescribed to the 90% isodose line, which covered 100% of the target. The plan utilized 3 shots using 8 mm and 4 mm sectors. Target volume = 0.007 cc. Maximum dose = 2670.0 cGy. Maximum diameter = 0.32 cm. MD/PD = 1.113. PIV/TV = 2.857. Gradient Index = 17.1. Number of Fractions = 1. 10. 2400.0 cGy was prescribed to the 90% isodose line, which covered 100% of the target. The plan utilized 4 shots using 16 mm, 8 mm and 4 mm sectors. Target volume = 0.46 cc. Maximum dose = 2670.0 cGy. Maximum diameter = 1.1 cm. MD/PD = 1.113. PIV/TV = 1.413. Gradient Index = 6.8. Number of Fractions = 1. 10 separate treatment plans were devised. ELAPSED TREATMENT TIME: 118 minutes (one session). TOLERANCE: Excellent. RESPONSE: To be evaluated. REMARKS: The patient will follow-up in 2 months with repeat MRI scan. Authorized user was present during the entire treatment. The total treatment time was within 10% of the written directive. Electronically Signed Phyllis Garcia M.D cc: Dr. Clayton Aguirre, SHALA OPERATIVE NO Observed: 02/01/2018 Status: COMPLETED Source: [place] 7:00 PM [facility] REPOSITORY HNO ID: [id number] Author: Clayton Beatty Service: Neurosurgery Author Type: Physician Type: Operative Report Filed: 02/02/2018 2:26 PM Note Text: [facility] BRAIN TUMOR [facility]URO-ONCOLOGY [facility]ENTER [address] [place] [address] [place] OPERATIVE REPORT NAME: Delmi Phillips [facility] NO.: [id number] RADIATION TREATMENT START DATE AND TIME: 2018-02-01, 13:15 RADIATION TREATMENT END DATE AND TIME: 2018-02-01, 17:35 PREOPERATIVE DIAGNOSIS: Metastasis, melanoma POSTOPERATIVE DIAGNOSIS: Same OPERATION: Stereotactic frame application and gamma knife radiosurgery. ANESTHESIA: Locally injected 1% Lidocaine with intravenous anxiolytic Versed. SURGEON: Clayton Beatty M.D. - Frame placement and planning, immediately available for all other aspects of case. RADIATION ONCOLOGIST: Phyllis Garcia MD ASSISTANTS: Ms. Lavern Herrera - Assistance with frame placement SPECIMEN: None EBL: 0 ccs OPERATIVE INDICATIONS: The full clinical history and indications for treatment were discussed in the initial neurosurgery visit note. The indications, risks, benefits, and alternatives were discussed with the patient who asked us to proceed. The patient is aware that this may be one of several staged procedures in the management of this disorder. OPERATIVE FINDINGS: 10 lesions DESCRIPTION OF PROCEDURE: The patient was admitted to the [facility] where intravenous access and a high resolution MRI were obtained. The [place] stereotactic frame was placed with the use of intravenous sedation and local anesthetic. The frame was placed without any difficulty and appropriate stereotactic measurements were made. The patient then underwent stereotactic imaging. The scans were loaded in the planning computer and RegeneRx gamma plan was used to perform stereotactic radiosurgery dose planning. The lesions were treated as follows: Target 1 (R_fr_1) Location: right frontal Prescription: 24 Gy to the 92% local isodose line The plan uses 2 shots covering 100% of the target. Target Volume: 0.005 cc Max linear size: 0.23 cm Conformality Index (PIV/TV) = 3.800 Complexity: Simple Gradient Index: 16.3 Number of Fractions: 1 Target 2 (l_fr_1) Location: left frontal 1 Prescription: 24 Gy to the 91% local isodose line The plan uses 9 shots covering 100% of the target. Target Volume: 0.11 cc Max linear size: 0.56 cm Conformality Index (PIV/TV) = 2.109 Complexity: Simple Gradient Index: 16.4 Number of Fractions: 1 Target 3 (l_fr_2) Location: left frontal 2 Prescription: 24 Gy to the 90% local isodose line The plan uses 8 shots covering 100% of the target. Target Volume: 0.044 cc Max linear size: 0.49 cm Conformality Index (PIV/TV) = 2.477 Complexity: Simple Gradient Index: 18.7 Number of Fractions: 1 Target 4 (l_fr_3) Location: left frontal 3 Prescription: 24 Gy to the 87% local isodose line The plan uses 3 shots covering 100% of the target. Target Volume: 0.021 cc Max linear size: 0.87 cm Conformality Index (PIV/TV) = 2.905 Complexity: Simple Gradient Index: 11 Number of Fractions: 1 Target 5 (r_fr_2) Location: right frontal 2 Prescription: 24 Gy to the 91% local isodose line The plan uses 3 shots covering 100% of the target. Target Volume: 0.009 cc Max linear size: 0.45 cm Conformality Index (PIV/TV) = 2.778 Complexity: Simple Gradient Index: 17.1 Number of Fractions: 1 Target 6 (r_par) Location: right parietal Prescription: 24 Gy to the 91% local isodose line The plan uses 4 shots covering 100% of the target. Target Volume: 0.056 cc Max linear size: 0.48 cm Conformality Index (PIV/TV) = 1.679 Complexity: Simple Gradient Index: 19.5 Number of Fractions: 1 Target 7 (r_syl) Location: right daylin Prescription: 24 Gy to the 92% local isodose line The plan uses 2 shots covering 100% of the target. Target Volume: 0.008 cc Max linear size: 0.29 cm Conformality Index (PIV/TV) = 2.250 Complexity: Simple Gradient Index: 26.7 Number of Fractions: 1 Target 8 (l_temp) Location: left temporal Prescription: 24 Gy to the 53% local isodose line The plan uses 6 shots covering 100% of the target. Target Volume: 0.33 cc Max linear size: 0.8 cm Conformality Index (PIV/TV) = 2.182 Complexity: Simple Gradient Index: 3.4 Number of Fractions: 1 Target 9 (l_occ) Location: left occipital Prescription: 24 Gy to the 90% local isodose line The plan uses 3 shots covering 100% of the target. Target Volume: 0.007 cc Max linear size: 0.32 cm Conformality Index (PIV/TV) = 2.857 Complexity: Simple Gradient Index: 17.1 Number of Fractions: 1 Target 10 (l_cer) Location: left cerebellar Prescription: 24 Gy to the 90% local isodose line The plan uses 4 shots covering 100% of the target. Target Volume: 0.46 cc Max linear size: 1.1 cm Conformality Index (PIV/TV) = 1.413 Complexity: Simple Gradient Index: 6.8 Number of Fractions: 1 After the usual quality assurance auditor procedures were performed, stereotactic radiosurgery was delivered with use of the Gamma Knife. Following the completion of the last shot, the stereotactic frame was removed and the pin sites were dressed. The Gamma Knife checklist and time outs were performed during this procedure. Clayton Beatty M.D. Electronically signed February 02, 2018 2:25 PM PROGRESS Observed: 02/01/2018 Status: COMPLETED Source: [place] 3:21 PM [facility] REPOSITORY HNO ID: [id number] Author: Xuan Cabrera (Rn) TANYA Herrera Service: (none) Author Type: Registered Nurse Type: Progress Notes Filed: 02/01/2018 6:09 PM Note Text: February 01, 2018 4059 Delmi Phillips arrived wheelchair with and son from imaging after MRI completed. Delmi here for Gamma Knife Stereotactic Radiosurgery. ID verified with patient with two identifiers, name and birthdate. ID band applied. Xuan Herrera RN Delmi assessed for the following: Does Delmi have any pain? No. Pain 0 on scale of 0-10 Does Delmi have: Unintentional weight loss or gain of greater than 10 pounds due to a change of appetite and/or intake: no Difficulty chewing and/or swallowing: no Fall risk assessment: At risk due to: weakness Difficulty performing or completing routine daily living activities: No Concerns about physical or emotional abuse: no Allergies reviewed with patient, yes. Glasses: No. Dentures:No Hearing Aid: No Transportation home verified: yes, with . HANDP done, dated: . IV site: #22 Angiocath inserted in right arm prior to arrival to [facility]. Xuan Herrera RN Delmi positioned in sitting position for stereotactic frame application. UNIVERSAL PROTOCOL / SAFETY CHECKLIST Procedure to be performed: Gamma Knife headframe placement. Sign in communication: Completed. 1310 Time Out.: Team Confirms the Correct Patient, Correct Procedure, Correct Site and Site Marking, Correct Position. Xuan Herrera RN 1315 Versed 1 mg IV per order of Dr. Pedro Beatty for anxiolysis, Xuan Herrera RN. 1325 Head frame # 0931 and pinset # 3 used for frame placement by Dr. Pedro Beatty. Sign Out Discussion: Completed. Post frame scannin Report called to nurse Marybel. To CT scan via wheelchair. 1345 CT scan completed. Delmi returned to [facility] waiting with family. Nutrition offered. Delmi updated regarding treatment planning. 1500 Decadron 10mg IV pre-Gamma Knife per order of Dr. Pedro Beatty per Rick London RN, Xuan Herrera RN 1510 Time Out #2 completed: Team Confirms the Correct Patient, Correct Procedure, Correct Site and Site Marking. Patient assisted to treatment room. Gamma Knife SRS begun. 1730 Gamma Knife Stereotactic Radiosurgery completed. Delmi assisted to exam bed. 1735 Pt refused Morphine. Head frame removed. 1740 Four pinsite wounds cleansed with hydrogen peroxide, antibiotic ointment applied, Band-Aids to Frontal area pin sites. Camron fernando. Xuan Herrera RN Does Delmi have any pain post frame removal? No. Pain 0 on scale of 0-10 Delmi is able to move within pre-procedural abilities. Discharge Information: Written and verbal post-procedural discharge instructions given to Delmi with stated understanding. Reviewed pin site care of cleansing pin sites twice a day x3-4 days and application of antibiotic ointment to sites. To keep pin sites clean/dry, do not wash hair/scalp for 48 hours post Gamma Knife Radiosurgery. Keep head elevated on 2 pillows x1 week to minimize pin site swelling. May take Ibuprofen or Tylenol for discomfort. Discharge prescriptions eScripted to pharmacy of choice: Yes Start the day after your Gamma Knife procedure: Decadron 4mg tabs Take 4mg (1 tablet) twice a day for 4 days. Take 2mg (1/2 tablet) three times a day for 2 days. Take 2mg (1/2 tablet) twice a day for 2 days. Take 2 mg (1/2 tablet) once a day for 2 days. Then stop Decadron. Pepcid 20mg tabs Take the Pepcid twice a day while taking the Decadron. Stop Pepcid when you stop the Decadron.. Local and toll free telephone numbers for [facility] Center/Gamma Knife nurse, hours of availability, Dr. Perdo Beatty's [facility] telephone number, and [facility] local and toll free numbers given to Delmi and family/visitors. 1809 Delmi left wheelchair with . Xuan Herrera RN CT BRAIN STEREOLOCAL WO Observed: 02/01/2018 Status: F Source: [place] IVCON 1:38 PM [facility] REPOSITORY * * *Final Report* * * DATE OF EXAM: Feb 01 2018 1:38PM [facility] 0503 - CT BRAIN STEREOLOCAL WO IVCON / PROCEDURE REASON: Brain metastases (HCC) * * * * Physician Interpretation * * * * EXAMINATION: CT STEREOLOCALIZATION BRAIN WITHOUT CONTRAST HISTORY: Brain metastases (HCC) TECHNIQUE: Stereotactic localization CT scan of the brain with without contrast. CT Dose-Length Product (DLP): 1238 mGy*cm CT Dose Reduction Employed: No dose reduction techniques were required COMPARISON: MRI brain 02/01/2018 RESULT: Examination performed with stereotactic head frame in place. Fixation pins result in streak artifact which limits evaluation of brain parenchyma on multiple images. No fracture or penetration of the calvarium by the grid pins. Redemonstrated are multiple metastatic lesions as described on prior MRI brain for example: -5 mm mesial left frontal lobe (series 2 image 178) -2 mm right frontal pole (series 2 image 180) -3 mm adjacent to the right sylvian fissure (series 2 image 35) -3 mm lateral right postcentral gyrus (series 2 image 177) -7 mm mesial left temporal lobe (series 2 image 117) -11 mm mesial left cerebellar hemisphere (series 2 image 118) -7 mm left occipital lobe (series 2 image 151) -8mm left occipital lobe (series 2 image 136) -10 mm left superior parietal lobule (series 2 image 200) -2 mm right parietal cortex (series 2 image 167) No acute intracranial findings. No significant mass effect. Ventricles are within normal limits. Paranasal sinuses and mastoid air cells are clear. Calvarium, skull base, orbits and extracranial soft tissues are unremarkable. IMPRESSION: 1. Stereotactic localization examination. 2. Metastatic lesions as described above. Senior Piping Designer: PSCB Transcribe Date/Time: Feb 01 2018 2:22P Dictated by : CATIA CONCEPCION MD This examination was interpreted and the report reviewed and electronically signed by: AUSTIN MI MD on Feb 01 2018 3:09PM EST [id number] PROGRESS Observed: 02/01/2018 Status: COMPLETED Source: [place] 1:36 PM [facility] REPOSITORY HNO ID: [id number] Author: IRENE Evans (Ct) Service: Radiology Author Type: Clinical Pump Servicer Type: Progress Notes Filed: 02/01/2018 1:37 PM Note Text: Radiology Service Progress Note PATIENT NAME: Delmi Phillips DATE OF SERVICE: February 01, 2018 TIME: 1:37 PM PATIENT IDENTITY VERIFICATION COMPLETED USING TWO (2) METHODS: Patient confirmed name verbally and ID band matches.. PATIENT GENDER DATA: Male PATIENT RELEVANT IMPLANT DATA REVIEWED: Yes RADIOLOGY DEPARTMENT: CT; Exam(s) Completed: Brain PERIPHERAL IV DATA: Not applicable SIGNED BY: IRENE Evans February 01, 2018 1:37 PM MRI BRAIN LOCAL W Observed: 02/01/2018 Status: F Source: [place] IVCON 8:16 AM [facility] REPOSITORY * * *Final Report* * * DATE OF EXAM: Feb 01 2018 8:16AM [facility] 0289 - MRI BRAIN LOCAL W IVCON / PROCEDURE REASON: Brain metastases (HCC) * * * * Physician Interpretation * * * * COMPARISONS: 01/18/2018. HISTORY: Brain metastasis. TECHNIQUE: MRI brain with contrast. [id number] MR Contrast: Dotarem Contrast Dose: 12 cc Route of Administration: Intravenous RESULT: MRI BRAIN: Single postcontrast exams T1 sequence performed preintervention. Motion minimally degrades sensitivity of study. Again identified are multiple enhancing lesions representing brain metastasis and are as follows and are detailed on series 2 postcontrast T1: STABLE METASTASIS: 5 mm mesial left frontal on image 48. 2 mm right frontal pole on image 62. 4 mm in left frontal left frontal cortex on image 63. 3 mm in anterior left frontal cortex on image 72. 5 mm in right mid parietal on image 79. Mesial left temporal 7 mm on image 114. Mesial left occipital 7 mm on image 114. NEW OR INCREASED IN SIZE METASTASIS: 1 mm cortical right frontal on image 37. Mid mesial left frontal 5 mm (was 3 mm) on image 53. Mesial left cerebellar 11 mm (was 8 mm) on image 129. DECREASED METASTASIS: 3 mm (was 5 mm) at anterior sylvian fissure on image 96. There is no significant mass effect or herniation identified with stable overall sulci, gyri, ventricles, CSF spaces and brain. No acute hemorrhage/infarct, mass effect or collections. Normal bones and soft tissues. Patent flow voids. IMPRESSION: Satisfactory preintervention imaging. 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 Delmi here for Gamma Knife Stereotactic Radiosurgery. ID verified with patient with two identifiers, name and birthdate. ID band applied. Xuan Herrera RN Delmi assessed for the following: Does Delmi have any pain? No. Pain 0 on scale of 0-10 Does Delmi have: Unintentional weight loss or gain of greater than 10 pounds due to a change of appetite and/or intake: no Difficulty chewing and/or swallowing: no Fall risk assessment: At risk due to: weakness Difficulty performing or completing routine daily living activities: No Concerns about physical or emotional abuse: no Allergies reviewed with patient, yes. Glasses: No. Dentures:No Hearing Aid: No Transportation home verified: yes, with . HANDP done, dated: . IV site: #22 Angiocath inserted in right arm prior to arrival to [facility]. Xuan Herrera RN Delmi positioned in sitting position for stereotactic frame application. UNIVERSAL PROTOCOL / SAFETY CHECKLIST Procedure to be performed: Gamma Knife headframe placement. Sign in communication: Completed. 1310 Time Out.: Team Confirms the Correct Patient, Correct Procedure, Correct Site and Site Marking, Correct Position. Xuan Herrera, TANYA 1315 Versed 1 mg IV per order of Dr. Pedro Beatty for anxiolysis, Xuan Herrera RN. 1325 Head frame # 0931 and pinset # 3 used for frame placement by Dr. Pedro Beatty. Sign Out Discussion: Completed. Post frame scannin Report called to nurse Marybel. To CT scan via wheelchair. 1345 CT scan completed. Delmi returned to [facility] center waiting with family. Nutrition offered. Delmi updated regarding treatment planning. 1500 Decadron 10mg IV pre-Gamma Knife per order of Dr. Pedro Beatty per Rick London RN, Xuan Herrera, TANYA 1510 Time Out #2 completed: Team Confirms the Correct Patient, Correct Procedure, Correct Site and Site Marking. Patient assisted to treatment room. Gamma Knife SRS begun. 1730 Gamma Knife Stereotactic Radiosurgery completed. Delmi assisted to exam bed. 1735 Pt refused Morphine. Head frame removed. 1740 Four pinsite wounds cleansed with hydrogen peroxide, antibiotic ointment applied, Band-Aids to Frontal area pin sites. Camron fernando. Xuan Herrera RN Does Delmi have any pain post frame removal? No. Pain 0 on scale of 0-10 Delmi is able to move within pre-procedural abilities. Discharge Information: Written and verbal post-procedural discharge instructions given to Delmi with stated understanding. Reviewed pin site care of cleansing pin sites twice a day x3-4 days and application of antibiotic ointment to sites. To keep pin sites clean/dry, do not wash hair/scalp for 48 hours post Gamma Knife Radiosurgery. Keep head elevated on 2 pillows x1 week to minimize pin site swelling. May take Ibuprofen or Tylenol for discomfort. Discharge prescriptions eScripted to pharmacy of choice: Yes Start the day after your Gamma Knife procedure: Decadron 4mg tabs Take 4mg (1 tablet) twice a day for 4 days. Take 2mg (1/2 tablet) three times a day for 2 days. Take 2mg (1/2 tablet) twice a day for 2 days. Take 2 mg (1/2 tablet) once a day for 2 days. Then stop Decadron. Pepcid 20mg tabs Take the Pepcid twice a day while taking the Decadron. Stop Pepcid when you stop the Decadron.. Local and toll free telephone numbers for [facility]/Gamma Knife nurse, hours of availability, Dr. Pedro Beatty's clinic telephone number, and [facility] local and toll free numbers given to Delmi and family/visitors. 0 Delmi left wheelchair with . Xuan Herrera RN Referring Provider: CLAYTON BEATTY [[id number]] Allergies As of Date: 02/01/2018 Noted Allergy Reaction SULFA (SULFONAMIDE ANTIBIOTICS) 08/25/2011 2 - Rash TIZANIDINE 06/04/2017 8 - GI Upset Date Reviewed: 02/01/2018 Reviewed by: Xuan Cabrera (Rn) TANYA Herrera - Fully Assessed Reason for Visit: Procedure [88] Cmt: Gamma Knife SRS Primary Visit Diagnosis:Brain metastases (HCC) [C79.31] Prescriptions as of 02/01/2018 Sig: RIVAROXABAN 15 MG TABLET Take 1 tablet by mouth daily * PREDNISONE 10 MG TABLET Take 1 tablet by mouth once d* DABRAFENIB 75 MG CAPSULE Take 2 capsules by mouth twic* TRAMETINIB 2 MG TABLET Take 1 tablet by mouth once d* OMEPRAZOLE 40 MG CAPSULE,MALISSA* Take 1 capsule by mouth once * Problem List As Of Date 02/01/2018 Noted Resolved Cord compression (HCC) [G95.20] INVALID FOR* More... Nicotine use disorder, F17.2 [F17.200] INVALID FOR* Brain metastases (HCC) [C79.31] INVALID FOR* Malignant melanoma (HCC) [C43.9] INVALID FOR* Liver metastases (HCC) [C78.7] INVALID FOR* Fall [W19.XXXA] INVALID FOR*08/13/2017 More... Acute deep vein thrombosis (DVT) of femoral vei*INVALID FOR* Letter Text Delmi Phillips [phone] [facility] Discharge Instructions - As with any surgery there are risks and potential side effects. There is a slight chance of developing brain swelling days or months after the Gamma Knife radiosurgery. If you experience nausea, vomiting, severe headache, visual changes, difficulty speaking, a seizure or any other symptom unusual for you, contact your physician immediately or go to the nearest emergency room. These may or may not be symptoms of brain swelling. If you go to a physician or hospital other than the [facility] with any problem related to the Gamma Knife procedure, please notify the Gamma Knife nurse. - Keep the pin sites clean and dry. You may remove the bandaids from the pin sites the morning after your radiosurgery. Clean the sites twice a day with hydrogen peroxide or mild soap and water. You may then apply a small amount of antibiotic ointment such as Neosporin or Bacitracin to the pin sites for 3-4 days. Bandaids over the pin sites for 2-3 days are sufficient. Often the sites on the back of your head will not have bandaids, as the bandaid will not adhere to hair. A small amount of pink drainage on your pillow the first or second night after your radiosurgery is not unusual. The pin sites may be tender to the touch, as with any small wound, for 3-4 days. Infection of the pin sites is very rare. If a couple days post-radiosurgery you notice increased pain, redness, swelling, the pin sites feel hot to the touch, a cloudy or foul smelling drainage from the pin sites, or a fever of 101 degrees F or higher, contact your physician. - You may wash your hair/scalp 48 hours after your radiosurgery. This gives the pin sites a chance to begin to heal and not introduce any infection into the wounds. - Avoid wearing tight bands or wigs over the pin sites for a few days. This gives the wounds a chance to heal in a dry, clean environment. - Keep your head elevated on a couple of pillows for one week. This will help lessen swelling at the pin sites and minimize pressure within your head. Occasionally patients will notice a small amount of swelling or slight bruising at the pin sites. This swelling may even spread to below your eyes. Applying ice packs to the affected area may help lessen the amount of swelling. This swelling usually lasts less than a week. - Rarely, patients experience pain the day after their radiosurgery. You may take non-aspirin pain medication, such as Ibuprofen or Tylenol, if you are having any discomfort. - Some patients are placed on steroids, such as Decadron, and an antacid, such as Pepcid, following their radiosurgery. Certain conditions require these medications to lessen the chance of swelling around the treated area. When prescribed, these medications are extremely important in the period immediately following your Gamma Knife treatment and must be taken exactly as directed. Start the day after your Gamma Knife procedure: Decadron 4mg tabs Take 4mg (1 tablet) twice a day for 4 days. Take 2mg (1/2 tablet) three times a day for 2 days. Take 2mg (1/2 tablet) twice a day for 2 days. Take 2 mg (1/2 tablet) once a day for 2 days. Then stop Decadron. Pepcid 20mg tabs Take the Pepcid twice a day while taking the Decadron. Stop Pepcid when you stop the Decadron. Resume all other regular medications. - Taking good care of your general health is an important step to recovery. Continue to eat well and get plenty of rest. At the time of discharge, you will be given your follow-up appointments with your neurosurgeon and radiation oncologist. If not, these appointment dates and times will be mailed to you. If you have any questions or problems, you may call the Gamma Knife nurse Tuesday through 8:00 am to 4:00 pm at [phone] or toll-free or your physician, Dr. Pedro Beatty at Tuesday through Tuesday 8:00 am to 5:00 pm. In the evening or on weekends, call [phone] or [facility]-free [phone] and ask the forwarder operator to page your neurosurgeon's resident human resources operations manager. Encounter Status:Closed by XUAN HERRERA on 02/01/18 PROGRESS Observed: 02/01/2018 Status: COMPLETED Source: [place] 8:08 AM [facility] REPOSITORY HNO ID: [id number] Author: Brittany Perales (Tech) Service: Radiology Author Type: Pump Servicer Type: Progress Notes Filed: 02/01/2018 8:08 AM Note Text: Radiology Service Progress Note PATIENT NAME: Delmi Phillips DATE OF SERVICE: February 01, 2018 TIME: 8:08 AM PATIENT IDENTITY VERIFICATION COMPLETED USING TWO (2) METHODS: Patient confirmed name verbally and ID band matches.. PATIENT GENDER DATA: Male PATIENT RELEVANT IMPLANT DATA REVIEWED: Yes RADIOLOGY DEPARTMENT: MR; Exam(s) Completed: Head: Localization PERIPHERAL IV DATA: Site assessment: Clean,Dry and Intact, Site disposition Left in for next appointment SIGNED BY: Antoine Olivia February 01, 2018 8:08 AM PROGRESS Observed: 02/01/2018 Status: COMPLETED Source: [place] 7:28 AM [facility] REPOSITORY HNO ID: [id number] Author: Delmi Morrow) TANYA Ndiaye Service: (none) Author Type: Registered Nurse Type: Progress Notes Filed: 02/01/2018 7:32 AM Note Text: Radiology Service Progress Note PATIENT NAME: eDlmi Phillips DATE OF SERVICE: February 01, 2018 TIME: 7:28 AM PATIENT WEIGHT: 140 LBS PATIENT IDENTITY VERIFICATION COMPLETED USING TWO (2) METHODS: Patient confirmed name verbally and ID band matches.. PATIENT GENDER DATA: Male CONTRAST INDUCED NEPHROPATHY RISK FACTORS: Patient age > 60 years CREATININE: Creatinine Date Value Ref Range Status 01/18/2018 0.66 (L) 0.73 - 1.22 mg/dL Final 11/07/2017 0.60 0.6 - 1.2 mg/dL Final 10/18/2017 0.66 (L) 0.73 - 1.22 mg/dL Final eGFR-All Other Races Date Value Ref Range Status 01/18/2018 >60 . Final Comment: eGFR (Estimated GFR) Units of measure: mL/min/1.73 meters squared eGFR is derived from the reexpressed MDRD Study equation using the following parameters: serum creatinine, age, gender and race. The creatinine assay has been calibrated to be traceable to IDMS. An eGFR <60 mL/min/1.73m2 for >3 months is consistent with chronic kidney disease. Refer to KDOQI guidelines for clinical interpretation. In patients with unstable renal function, e.g. those with acute kidney injury, the eGFR may not accurately reflect actual GFR. eGFR- Date Value Ref Range Status 01/18/2018 >60 Final P.O.C.T. RESULTS: N/A February 01, 2018 TREATMENT: No Hydration needed. ALLERGIES: Reviewed and unchanged CONTRAST ALLERGY: NO. IV SITE: Ambulatory: A peripheral IV was started in the Right forearm with a Angio cath: 22 gauge. and A Saline lock was inserted per protocol IV SITE APPEARANCE: Clean,Dry and Intact SIGNED BY: Delmi Ndiaye RN February 01, 2018 7:28 AM PROGRESS Observed: 02/01/2018 Status: COMPLETED Source: [place] 12:00 AM [facility] REPOSITORY HNO ID: [id number] Author: Phyllis Garcia Service: Radiation Oncology Author Type: Physician Type: Progress Notes Filed: 02/02/2018 12:35 AM Note Text: DELMI PHILLIPS [id number] 02/01/2018 [facility] Department of Radiation Oncology [facility] RADIATION ONCOLOGY GAMMA KNIFE TREATMENT PLANNING NOTE For reasons stated in the consult note, DELMI PHILLIPS is a candidate for palliative radiosurgery. Based on review and interpretation of the relevant diagnostic studies together with the exam findings, DELMI PHILLIPS was imaged on 02/01/2018. The imaging was fused into Gamma Plan and the target volume to be treated as well as the critical normal structure(s) were delineated. After participating in the treatment planning process with neurosurgery and medical physics, I approved the best plan to deliver my prescribed course of radiosurgery. The target tissue was planned using Gamma Plan to allow for the best isodose distribution and dosimetry/DVH. The dose to normal tissue and target tissue was confirmed upon review of the calculated dose. A completed summary of this plan dated 02/01/2018 incorporated herein by reference includes dose, isodose distribution and DVH. Electronically Signed Phyllis Garcia M.D. / CHRYSTAL 02/01/20182:52 PM PROGRESS Observed: 01/23/2018 Status: COMPLETED Source: [place] 4:02 PM [facility] REPOSITORY HNO ID: [id number] Author: Clayton Beatty Service: (none) Author Type: Physician Type: Progress Notes Filed: 01/23/2018 4:30 PM Note Text: BTI OUTPATIENT CONSULTATION The patient is sent by Dr. Jerry Aguirre for neurosurgical evaluation and consultation. I will convey my opinions and recommendations to her through the [place] Mail. Patient is accompanied by his , daughter and son. . CHIEF COMPLAINT : Incontinence, numbness on LUE HISTORY OF PRESENT ILLNESS : The patient is a 67 year old,right handed male who presents for neurosurgical evaluation. Patient was diagnosed with metastatic melanoma (lung, liver, bone, brain) and received WBRT on 09/2017, as well as spinal RT for thoracic and sacral lesions. 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 He was recently diagnosed with 8 new lesions in brain and referred to us for GKRS PAST HISTORY Past Medical History : PAST MEDICAL HISTORY Diagnosis Date - Melanoma (HCC) Past Surgical History : PAST SURGICAL HISTORY Procedure Laterality Date - PAST SURGICAL HISTORY OF 2004 bilateral knee replacement - REMOVAL OF TONSILS,<12 Y/O Current Medications : Current Outpatient Prescriptions: rivaroxaban (XARELTO) 15 mg tablet Take 1 tablet by mouth daily with dinner. Disp: 30 tablet Rfl: 5 predniSONE (DELTASONE) 10 mg tablet Take 1 tablet by mouth once daily. Disp: 30 tablet Rfl: 2 dabrafenib (TAFINLAR) 75 mg cap Take 2 capsules by mouth twice daily. Disp: 120 capsule Rfl: 5 trametinib (MEKINIST) 2 mg tab Take 1 tablet by mouth once daily. Disp: 30 tablet Rfl: 5 Omeprazole (PRILOSEC) 40 mg capsule Take 1 capsule by mouth once daily. Disp: 30 capsule Rfl: 5 No current facility-administered medications for this visit. Allergies : ALLERGIES Allergen Reactions - Sulfa (Sulfonamide * Rash - Tizanidine GI Upset Social History : Social History Marital status: Spouse name: Years of education: Number of children: Social History Main Topics Smoking status: Never Smoker Smokeless tobacco: Current User Types: Snuff Alcohol use: Yes 45.0 oz/week Cans of Beer (12oz): 30 per week Drug use: No Family History : FAMILY HISTORY Problem Relation Age of Onset - Cancer Father esophagus - Cancer Brother bladder, lung - Aneurysm Mother Brain REVIEW OF SYSTEM : Constitutional: No recent fever or weight loss. Eyes: No history of glaucoma or cataracts ENMT: No recent ear infection, nasal congestion, mouth sores or sore throat. CV: No history of chest pain, palpitations or leg swelling Respiratory: No history of SOB, asthma or recent cough. Gastrointestinal: No history of nausea, vomiting, dysphagia or abdominal pain. Genitourinary: No history of hematuria or dysuria. Musculoskeletal: No complaint of arthritis, unstable gait or arm/leg weakness Psychiatric: No history of hallucinations or depression or anxiety No complaint of headache No complaint of tinnitus No complaint of decreased hearing No complaint of diplopia No complaints of blurred vision. No complaint of arm/leg numbness No problem with limb coordination No complaint of syncope No complaints of seizures. No complaints of memory changes or disorientation. Additional ROS: Constitutional: No recent fever or weight loss. Eyes: No history of glaucoma or cataracts ENMT: No recent ear infection, nasal congestion, mouth sores or sore throat. PHYSICAL EXAM GENERAL: alert, in no distress, well developed SKIN: normal, no rashes or stevenson NECK: supple and no adenopathy HEENT: Extra occular muscles intact, Conjunctivae are not injected, Sclera non-icteric, Nares patent, Airway patent, Good dentition, Oropharynx clear, Pharynx not erythemateous, No Exudate, Tonsils not injected and Tympanic Membranes are within normal limits bilaterally. CV: Regular Rate and Rhythm without murmurs or clicks RESP: clear to auscultation ABDOMEN: Abdomen is soft, without organomegaly or masses.. EXT: Warm,No cyanosis, clubbing,No edema,nontender Higher integrative functions: Oriented to person, place AND time Memory: Good recent and remote Attention Span and Concentration: Good Language: Accurate naming of objects. Good comprehension Fund of Knowledge: Good 2nd CN: Full visual springer 3rd,4th,6th CN: Pupils (=), round, react to light, full extraocular movements: 5th CN: No decrease in facial sensation, normal corneal reflexes. 7th CN: Facial muscles symmetric and strong 8th CN: Hears finger rub well bilaterally 9th CN: Good gag 10th CN: Spontaneous palate movement, full and symmetric 11th CN: Full strength in shoulder shrug. 12th CN: Tongue protrusion full and midline. Sensation: No decrease in sensation in upper or lower limbs to touch. Myotatic reflexes: 2/4 throughout and symmetrical Babinski reflexes: Absent Coordination: Rapid alternating movements fast and smooth all limbs. No dysdiadochokinesis Muscle strength: 5/5 symteric Gait: Slightly ataxic Sensory, LUE numbness (improving since WBRT) GI: no vomiting, diarrhea, constipation, abdominal pain, GERD, dysphasia, melena or hematochezia DATA REVIEW: Review of old medical records: [facility] chart Review of reports of lab, radiology and /or other diagnostic test(s): [facility] chart KPS score:70 INFORMATION COLLECTED BY: Dr. Amado Vera MEDICAL DECISION MAKING Data Review: Personal review of medical records: I reviewed the [facility] chart. Personal review of image, tracing or specimen: I reviewed his brain MRI. There are several, small, enhancing lesions in the brain, most compatible with metastases Multifocal: Yes Subependymal spread: No Diagnosis: Melanoma metastatic to brain Treatment Options and Risks: I have discussed the management options and their respective risks and benefits with the patient. We reviewed the radiographic findings outlined above. We discussed observation, surgery (craniotomy, laser ablation vs. biopsy), chemotherapy, radiation, and radiosurgery. I believe that these would be best treated with Gamma Knife radiosurgery We discussed the multisession Gamma Knife procedure. On the Tuesday before treatment, a thermoplastic mask is made and a CT scan and an MRI scan are obtained. The CT and MRI are transferred to our planning computer where I fuse the images and define regions to be treated (or not). Thereafter I create a plan by applying different size, intensities and locations of focused radiation to the lesion such that the end result is that the treatment dose of radiation nearly matches the size, shape and location of the lesion. The radiation oncologist reviews the plan and assigns a dose of radiation. The radiation physicist reviews the plan and confirms the machine is working properly. Treatment would commence the following Tuesday and would likely be for 5 treatments (one each, Tuesday through Tuesday). Treatment typically is in the morning. The patient lies down on the treatment couch and the mask is refitted, as well as a device to detect any head motion. A CT scan is obtained by the Gamma Knife machine and some final calculations made. The patient will then slide into the device up to their lower chest for the duration of treatment, move from target to target, and then exit. While being treated, up to 192 beams of radiation converge at the points I picked on the computer. The staff will leave the room prior to treatment and the patient will be monitored by several television cameras and 2 intercom systems. Once the treatment is completed, the patient will be the patient will be observed for a short period of time, then may leave Postoperative and follow-up instructions will be given prior to discharge. We had an informed consent discussion Recommendations: As above Medicines: No Change Instructions: Continue present activity. Report for Gamma Knife as instructed. No resident was available to participate in this visit. I saw and evaluated the patient. I reviewed the fellow's note and agree with findings and plan as written. Clayton Beatty M.D. This Note has been electronically signed. January 23, 2018 4:02 PM cc : Jerry Aguirre, [employer]ER [address] [id number] () CNOV Observed: 01/23/2018 Status: COMPLETED Source: [place] 3:10 PM [facility] REPOSITORY Office Visit ([facility]) DELMI PHILLIPS ([id number]) 1950 M Date Time Provider Department 01/23/18 3:10 PM [facility] During your visit today, we recorded the following information about you: Suzie Hauser Ma 01/23/2018 3:41 PM Signed Additional intake questions: Has the patient had nausea, vomiting, diarrhea, constipation, fatigue for > 1 week? Fatigue, Yes, MD Notified Does the patient have a decreased appetite? No Does patient want to see a [employer]? No (yes to any of above refer patient to schedulers for dietitian appointment) ) Does patient have any new or increased numbness or tingling of extremities? No Is patient interested in fertility information? No Does patient need any prescription refills? No Electronically Signed By: Suzie Hauser Ma 01/23/2018 3:41 PM Signed Reviewed and confirmed with patient that there were no changes in the the nursing assessment and vitals that were completed on January 23, 2018 during previous provider appointment. Suzie Beatty MD 01/23/2018 4:30 PM Signed BTI OUTPATIENT CONSULTATION The patient is sent by Dr. Jerry Aguirre for neurosurgical evaluation and consultation. I will convey my opinions and recommendations to her through the [place] Mail. Patient is accompanied by his , daughter and son. . CHIEF COMPLAINT : Incontinence, numbness on LUE HISTORY OF PRESENT ILLNESS : The patient is a 67 year old,right handed male who presents for neurosurgical evaluation. Patient was diagnosed with metastatic melanoma (lung, liver, bone, brain) and received WBRT on 09/2017, as well as spinal RT for thoracic and sacral lesions. 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 He was recently diagnosed with 8 new lesions in brain and referred to us for GKRS PAST HISTORY Past Medical History : PAST MEDICAL HISTORY Diagnosis Date - Melanoma (HCC) Past Surgical History : PAST SURGICAL HISTORY Procedure Laterality Date - PAST SURGICAL HISTORY OF 2004 bilateral knee replacement - REMOVAL OF TONSILS,<12 Y/O Current Medications : Current Outpatient Prescriptions: rivaroxaban (XARELTO) 15 mg tablet Take 1 tablet by mouth daily with dinner. Disp: 30 tablet Rfl: 5 predniSONE (DELTASONE) 10 mg tablet Take 1 tablet by mouth once daily. Disp: 30 tablet Rfl: 2 dabrafenib (TAFINLAR) 75 mg cap Take 2 capsules by mouth twice daily. Disp: 120 capsule Rfl: 5 trametinib (MEKINIST) 2 mg tab Take 1 tablet by mouth once daily. Disp: 30 tablet Rfl: 5 Omeprazole (PRILOSEC) 40 mg capsule Take 1 capsule by mouth once daily. Disp: 30 capsule Rfl: 5 No current facility-administered medications for this visit. Allergies : ALLERGIES Allergen Reactions - Sulfa (Sulfonamide * Rash - Tizanidine GI Upset Social History : Social History Marital status: Spouse name: Years of education: Number of children: Social History Main Topics Smoking status: Never Smoker Smokeless tobacco: Current User Types: Snuff Alcohol use: Yes 45.0 oz/week Cans of Beer (12oz): 30 per week Drug use: No Family History : FAMILY HISTORY Problem Relation Age of Onset - Cancer Father esophagus - Cancer Brother bladder, lung - Aneurysm Mother Brain REVIEW OF SYSTEM : Constitutional: No recent fever or weight loss. Eyes: No history of glaucoma or cataracts ENMT: No recent ear infection, nasal congestion, mouth sores or sore throat. CV: No history of chest pain, palpitations or leg swelling Respiratory: No history of SOB, asthma or recent cough. Gastrointestinal: No history of nausea, vomiting, dysphagia or abdominal pain. Genitourinary: No history of hematuria or dysuria. Musculoskeletal: No complaint of arthritis, unstable gait or arm/leg weakness Psychiatric: No history of hallucinations or depression or anxiety No complaint of headache No complaint of tinnitus No complaint of decreased hearing No complaint of diplopia No complaints of blurred vision. No complaint of arm/leg numbness No problem with limb coordination No complaint of syncope No complaints of seizures. No complaints of memory changes or disorientation. Additional ROS: Constitutional: No recent fever or weight loss. Eyes: No history of glaucoma or cataracts ENMT: No recent ear infection, nasal congestion, mouth sores or sore throat. PHYSICAL EXAM GENERAL: alert, in no distress, well developed SKIN: normal, no rashes or stevenson NECK: supple and no adenopathy HEENT: Extra occular muscles intact, Conjunctivae are not injected, Sclera non-icteric, Nares patent, Airway patent, Good dentition, Oropharynx clear, Pharynx not erythemateous, No Exudate, Tonsils not injected and Tympanic Membranes are within normal limits bilaterally. CV: Regular Rate and Rhythm without murmurs or clicks RESP: clear to auscultation ABDOMEN: Abdomen is soft, without organomegaly or masses.. EXT: Warm,No cyanosis, clubbing,No edema,nontender Higher integrative functions: Oriented to person, place AND time Memory: Good recent and remote Attention Span and Concentration: Good Language: Accurate naming of objects. Good comprehension Fund of Knowledge: Good 2nd CN: Full visual springer 3rd,4th,6th CN: Pupils (=), round, react to light, full extraocular movements: 5th CN: No decrease in facial sensation, normal corneal reflexes. 7th CN: Facial muscles symmetric and strong 8th CN: Hears finger rub well bilaterally 9th CN: Good gag 10th CN: Spontaneous palate movement, full and symmetric 11th CN: Full strength in shoulder shrug. 12th CN: Tongue protrusion full and midline. Sensation: No decrease in sensation in upper or lower limbs to touch. Myotatic reflexes: 2/4 throughout and symmetrical Babinski reflexes: Absent Coordination: Rapid alternating movements fast and smooth all limbs. No dysdiadochokinesis Muscle strength: 5/5 symteric Gait: Slightly ataxic Sensory, LUE numbness (improving since WBRT) GI: no vomiting, diarrhea, constipation, abdominal pain, GERD, dysphasia, melena or hematochezia DATA REVIEW: Review of old medical records: [facility] chart Review of reports of lab, radiology and /or other diagnostic test(s): [facility] chart KPS score:70 INFORMATION COLLECTED BY: Dr. Amado Vera MEDICAL DECISION MAKING Data Review: Personal review of medical records: I reviewed the [facility] chart. Personal review of image, tracing or specimen: I reviewed his brain MRI. There are several, small, enhancing lesions in the brain, most compatible with metastases Multifocal: Yes Subependymal spread: No Diagnosis: Melanoma metastatic to brain Treatment Options and Risks: I have discussed the management options and their respective risks and benefits with the patient. We reviewed the radiographic findings outlined above. We discussed observation, surgery (craniotomy, laser ablation vs. biopsy), chemotherapy, radiation, and radiosurgery. I believe that these would be best treated with Gamma Knife radiosurgery We discussed the multisession Gamma Knife procedure. On the Tuesday before treatment, a thermoplastic mask is made and a CT scan and an MRI scan are obtained. The CT and MRI are transferred to our planning computer where I fuse the images and define regions to be treated (or not). Thereafter I create a plan by applying different size, intensities and locations of focused radiation to the lesion such that the end result is that the treatment dose of radiation nearly matches the size, shape and location of the lesion. The radiation oncologist reviews the plan and assigns a dose of radiation. The radiation physicist reviews the plan and confirms the machine is working properly. Treatment would commence the following Tuesday and would likely be for 5 treatments (one each, Tuesday through Tuesday). Treatment typically is in the morning. The patient lies down on the treatment couch and the mask is refitted, as well as a device to detect any head motion. A CT scan is obtained by the Gamma Knife machine and some final calculations made. The patient will then slide into the device up to their lower chest for the duration of treatment, move from target to target, and then exit. While being treated, up to 192 beams of radiation converge at the points I picked on the computer. The staff will leave the room prior to treatment and the patient will be monitored by several television cameras and 2 intercom systems. Once the treatment is completed, the patient will be the patient will be observed for a short period of time, then may leave Postoperative and follow-up instructions will be given prior to discharge. We had an informed consent discussion Recommendations: As above Medicines: No Change Instructions: Continue present activity. Report for Gamma Knife as instructed. No resident was available to participate in this visit. I saw and evaluated the patient. I reviewed the fellow's note and agree with findings and plan as written. Clayton Beatty M.D. This Note has been electronically signed. January 23, 2018 4:02 PM cc : Jerry Aguirre, [employer] [address] [id number] () Clayton Beatty MD 01/23/2018 4:27 PM Signed Personal review of image, tracing or specimen: I reviewed his brain MRI. There are several, small, enhancing lesions in the brain, most compatible with metastases Multifocal: Yes Subependymal spread: No Diagnosis: Melanoma metastatic to brain Treatment Options and Risks: I have discussed the management options and their respective risks and benefits with the patient. We reviewed the radiographic findings outlined above. We discussed observation, surgery (craniotomy, laser ablation vs. biopsy), chemotherapy, radiation, and radiosurgery. I believe that these would be best treated with Gamma Knife radiosurgery We discussed the multisession Gamma Knife procedure. On the Tuesday before treatment, a thermoplastic mask is made and a CT scan and an MRI scan are obtained. The CT and MRI are transferred to our planning computer where I fuse the images and define regions to be treated (or not). Thereafter I create a plan by applying different size, intensities and locations of focused radiation to the lesion such that the end result is that the treatment dose of radiation nearly matches the size, shape and location of the lesion. The radiation oncologist reviews the plan and assigns a dose of radiation. The radiation physicist reviews the plan and confirms the machine is working properly. Treatment would commence the following Tuesday and would likely be for 5 treatments (one each, Tuesday through Tuesday). Treatment typically is in the morning. The patient lies down on the treatment couch and the mask is refitted, as well as a device to detect any head motion. A CT scan is obtained by the Gamma Knife machine and some final calculations made. The patient will then slide into the device up to their lower chest for the duration of treatment, move from target to target, and then exit. While being treated, up to 192 beams of radiation converge at the points I picked on the computer. The staff will leave the room prior to treatment and the patient will be monitored by several television cameras and 2 intercom systems. Once the treatment is completed, the patient will be the patient will be observed for a short period of time, then may leave Postoperative and follow-up instructions will be given prior to discharge. We had an informed consent discussion Recommendations: As above Medicines: No Change Instructions: Continue present activity. Report for Gamma Knife as instructed. Referring Provider: JERRY AGUIRRE [[id number]] Allergies As of Date: 01/23/2018 Noted Allergy Reaction SULFA (SULFONAMIDE ANTIBIOTICS) 08/25/2011 2 - Rash TIZANIDINE 06/04/2017 8 - GI Upset Date Reviewed: 01/23/2018 Reviewed by: Maricarmen (Pcna) KRISTEN Richter - Fully Assessed Primary Visit Diagnosis:Brain metastases (HCC) [C79.31] Prescriptions as of 01/23/2018 Sig: RIVAROXABAN 15 MG TABLET Take 1 tablet by mouth daily * PREDNISONE 10 MG TABLET Take 1 tablet by mouth once d* DABRAFENIB 75 MG CAPSULE Take 2 capsules by mouth twic* TRAMETINIB 2 MG TABLET Take 1 tablet by mouth once d* OMEPRAZOLE 40 MG CAPSULE,MALISSA* Take 1 capsule by mouth once * Problem List As Of Date 01/23/2018 Noted Resolved Cord compression (HCC) [G95.20] INVALID FOR* More... Nicotine use disorder, F17.2 [F17.200] INVALID FOR* Brain metastases (HCC) [C79.31] INVALID FOR* Malignant melanoma (HCC) [C43.9] INVALID FOR* Liver metastases (HCC) [C78.7] INVALID FOR* Fall [W19.XXXA] INVALID FOR*08/13/2017 More... Acute deep vein thrombosis (DVT) of femoral vei*INVALID FOR* Other instructions from your clinician: Personal review of image, tracing or specimen: I reviewed his brain MRI. There are several, small, enhancing lesions in the brain, most compatible with metastases Multifocal: Yes Subependymal spread: No Diagnosis: Melanoma metastatic to brain Treatment Options and Risks: I have discussed the management options and their respective risks and benefits with the patient. We reviewed the radiographic findings outlined above. We discussed observation, surgery (craniotomy, laser ablation vs. biopsy), chemotherapy, radiation, and radiosurgery. I believe that these would be best treated with Gamma Knife radiosurgery We discussed the multisession Gamma Knife procedure. On the Tuesday before treatment, a thermoplastic mask is made and a CT scan and an MRI scan are obtained. The CT and MRI are transferred to our planning computer where I fuse the images and define regions to be treated (or not). Thereafter I create a plan by applying different size, intensities and locations of focused radiation to the lesion such that the end result is that the treatment dose of radiation nearly matches the size, shape and location of the lesion. The radiation oncologist reviews the plan and assigns a dose of radiation. The radiation physicist reviews the plan and confirms the machine is working properly. Treatment would commence the following Tuesday and would likely be for 5 treatments (one each, Tuesday through Tuesday). Treatment typically is in the morning. The patient lies down on the treatment couch and the mask is refitted, as well as a device to detect any head motion. A CT scan is obtained by the Gamma Knife machine and some final calculations made. The patient will then slide into the device up to their lower chest for the duration of treatment, move from target to target, and then exit. While being treated, up to 192 beams of radiation converge at the points I picked on the computer. The staff will leave the room prior to treatment and the patient will be monitored by several television cameras and 2 intercom systems. Once the treatment is completed, the patient will be the patient will be observed for a short period of time, then may leave Postoperative and follow-up instructions will be given prior to discharge. We had an informed consent discussion Recommendations: As above Medicines: No Change Instructions: Continue present activity. Report for Gamma Knife as instructed. Visit Notes: >> Suzie Hauser Ma [facility] Jan 23, 2018 3:41 PM Status: Signed Additional intake questions: Has the patient had nausea, vomiting, diarrhea, constipation, fatigue for > 1 week? Fatigue, Yes, MD Notified Does the patient have a decreased appetite? No Does patient want to see a [employer]? No (yes to any of above refer patient to schedulers for dietitian appointment) ) Does patient have any new or increased numbness or tingling of extremities? No Is patient interested in fertility information? No Does patient need any prescription refills? No Electronically Signed By: Suzie Hauser Ma >> Suzie Hauser Ma [facility] Jan 23, 2018 3:41 PM Status: Signed Reviewed and confirmed with patient that there were no changes in the the nursing assessment and vitals that were completed on January 23, 2018 during previous provider appointment. Suzie Hauser Ma Encounter Status:Closed by CLAYTON BEATTY MD on 01/23/18 CHAD Observed: 01/23/2018 Status: COMPLETED Source: [place] 2:00 PM [facility] REPOSITORY Office Visit (RADTMN) DELMI PHILLIPS ([id number]) 1950 M Date Time Provider Department 01/23/18 2:00 PM PHYLLIS GARCIA During your visit today, we recorded the following information about you: Temperature Pulse Respiration Blood pressure 98.6 degrees 101/minute 20/minute 131/85 Weight 63 kg Phyllis Garcia MD 01/23/2018 4:05 PM Signed Radiation Oncology - New Patient/Consult Note PATIENT NAME: Delmi Phillips PATIENT REQUESTING PROVIDER: Dr. Akbar Mcarthur. DIAGNOSIS: 67 year old male with metastatic melanoma (Braf [id number], Nras and c-kit wt) with brain metastases s/p WBRT (37.5Gy) completed 06/2017 and bone metastasis s/p RT to T2-T5 (30Gy) in 06/2017 and S2 with epidural disease s/p RT to L5-sacrum (30Gy/10 fx) completed 12/15/17 s/p keytruda now on dabrafinib/trametinib with progression of brain metastases. HPI: The patient is a 67 year old, right handed male who presents with above diagnosis, for an opinion regarding the role of radiation therapy in the management of the patient's disease. Final recommendations will be communicated back to the requesting physician by way of the shared medical record, or letter to requesting physician via US mail. 67 year old man who was initially diagnosed with metastatic melanoma early this year when he presented with progressive left upper chest pain and CT chest on 05/11/17 showed numerous bilateral lung and pleural based small nodules and a?subcutaneous soft tissue mass measuring 34 x 25 mm at the level of T2 in the posterior dorsal midline region. There was T4 vertebral body compression fracture with blastic appearance in the left side. CT abdomen/pelvis on 05/25/17 showed multiple hypodense nodules in the liver suggestive of diffuse metastatic disease and several peripheral nodules in the spleen. MRI of the spine on 06/04/17 showed, Multiple areas of abnormal marrow signal in the MID thoracic vertebrae. T4 is most affected which shows a 50% pathologic compression fracture with abnormal epidural metastatic soft tissue. ?This results in moderate CORD compression at this level without evidence for cord signal abnormality. ? He underwent biopsy of a liver mass on 06/06/17 and pathology showed Metastatic melanoma, involving hepatic parenchyma. ? He developed left arm and leg numbness/tingling and difficulties with balance in early June and went to the [facility] ER. He was transferred to [facility] main campus. MRI brain on 06/09/17 showed multiple brain metastases. He had palliative RT to the brain with 37.5Gy in 15 fractions and to T2-T5 with 30 Gy in 10 fractions. He was then treated with Keytruda followed by Dabrafenib/trametinib started on 09/19/2017. CT chest/abdomen/pelvis on 11/07/17 showed significant decrease in the size and number of pulmonary nodules and decrease in adenopathy. There were decrease in the size and/or number of lesions within the liver, adrenal glands, mesentery and bone. ? He developed erectile dysfunction in July and then urinary and stool incontinence. MRI of the lumbar spine on 11/24/17 showed bone metastasis at S2 with cortical disruption posteriorly along the S2 vertebra, with increased soft tissue in the epidural space consistent with epidural extension of disease. He received RT to L5-sacrum 30Gy in 10 fx completed 12/15/17 in [place]. ? He has been on prednisone 10mg daily. He reports left foot slapping. His bowel and bladder incontinence are improving. Denies any pain. Able to walk short distances without cane or walker. ALLERGIES Allergen Reactions - Sulfa (Sulfonamide * Rash - Tizanidine GI Upset MEDICATIONS: rivaroxaban (XARELTO) 15 mg tablet Take 1 tablet by mouth daily with dinner. vitamin b complex tab Take 1 tablet by mouth once daily. predniSONE (DELTASONE) 10 mg tablet Take 1 tablet by mouth once daily. dabrafenib (TAFINLAR) 75 mg cap Take 2 capsules by mouth twice daily. trametinib (MEKINIST) 2 mg tab Take 1 tablet by mouth once daily. promethazine (PHENERGAN) 25 mg tablet Take 1 tablet by mouth every 6 hours as needed. FOR NAUSEA albuterol HFA (PROAIR HFA) 90 mcg/actuation inhaler Inhale 2 Puffs as instructed every 4 hours as needed. thiamine (VITAMIN B1) 100 mg tablet Take 1 tablet by mouth once daily. Omeprazole (PRILOSEC) 40 mg capsule Take 1 capsule by mouth once daily. traMADol (ULTRAM) 50 mg tablet EVERY 6 HOURS NEEDED COMPOUNDED PRESCRIPTION Outpatient Physical therapy for weakness due to his metastatic malignancy. acetaminophen (TYLENOL) 325 mg tablet Take 650 mg by mouth every 6 hours as needed. 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 RESPIRATORY: Negative for cough or shortness of breath. CARDIAC: Negative for chest pain, palpitations, murmurs, or syncopal episodes. GI: Negative, except for bowel incontinence but improving : Negative, except for urgency on occasion and incontinence that is improving MUSCULOSKELETAL: Negative, except for left foot falling HEMATOLOGIC: Negative, except for bruises easily SKIN: Negative for rashes or other skin changes. Neuro detailed: Headache: No Pain: No Pain interventions: none required Fatigue: moderate Decreased visual acuity: No Diplopia: No Visual Field Changes: No Tinnitus: No Hearing loss: Chronic hearing loss Dysphagia: No Decreased balance: mild Arm/leg numbness: No Focal weakness: No Limb discoordination: No Disorientation: none Decreased concentration: none Memory changes: none Word finding difficulty: none Dysarthria: none Seizures: No ROS completed by RN. Joanne Bernardo RN PHYSICAL EXAM: VS: BP 131/85 Pulse 101 Temp 37 ?C (98.6 ?F) (Oral) Resp 20 Wt 63 kg (139 lb) SpO2 100% BMI 19.94 kg/m? KPS: 80 Neuro function score (NFS): NFS 1 (Minor neurologic symptoms; fully active at home/work without assistance) General Appearance: Alert and oriented. No acute distress. Neck: Normal ROM. Chest: No respiratory distress. Musculoskeletal: No edema. Neuro: Speech fluent. CN II-XII intact except dec hearing biliaterally. Unable to recite zipcode backwards. Strength intact and symmetric, 5/5 throughout. Sensation intact to light touch. Normal gait. FNF intact. Tandem gait moderately unsteady. No other focal deficits. Skin: No rashes noted RADIOLOGY/LABORATORY DATA: MRI Brain 01/18/18 COMPARISON: MRI brain 08/21/2017. RESULT: Acute Change: ? There is no evidence of restricted diffusion to suggest an acute infarct. Hemorrhage: ? ?Susceptibility artifact associated with some of the intracranial lesions reflects hemorrhagic metastasis. Mass Lesion/ Mass Effect: ? ?The previously noted supratentorial and infratentorial parenchymal metastasis has decreased in size and enhancement. ?However, there has been interval development of multiple new parenchymal metastases. There is a new 4 mm enhancing lesion in the right superior frontal gyrus on series 10 image 29. There is a new 5 mm enhancing lesion in the left superior frontal gyrus image 32. There is a 3 mm focus of leptomeningeal enhancement versus small parenchymal lesion in the medial left frontal gyrus image 35, new. New 5 mm right marginal gyrus lesion on image 51. New 7 mm left medial cerebellar lesion on image 85 New 1 mm punctate enhancing focus in the left precuneus gyrus on image 65 New 6 mm enhancing lesion in the left superior parietal gyrus on image 25 New 8 mm left lingual gyrus lesion on image 74 Chronic Change: ?Confluent periventricular white matter T2/FLAIR hyperintensity has progressed from 08/15/2017, which likely represent a combination of chronic microvascular ischemia and postirradiation changes. Parenchyma: ? No significant volume loss for age. Ventricles: ? ? Normal caliber and morphology. Skull Base: ? ?Hypothalamic and pituitary region are grossly normal. ? Craniocervical junction is normal. ?Redemonstration of stable multiple foci of marrow replacement in the calvarium, suggesting osseous metastasis.. Vasculature: ? ?Major intracranial arterial structures, and dural venous sinuses show typical flow void, suggesting patency by spin echo criteria. Other: Bilateral, right greater than left mastoid effusions. ?Polypoid mucosal thickening in the left maxillary sinus. ?The orbits and extracranial soft tissues are unremarkable. IMPRESSION: Intraparenchymal metastasis noted on previous study 08/15/2017 has decreased in size and enhancement. ?However, there has been interval development of multiple new parenchymal metastases as detailed above. ASSESSMENT AND PLAN: 67yo M with metastatic melanoma (Braf [id number], Nras and c-kit wt) with widespread metastases including in brain and spine s/p WBRT (37.5 Gy) and T2-T5 RT (30Gy) both in 06/2017 and L5-sacrum RT (30Gy) completed 12/15/2017. H ereceived keytruda and is now on dabrafinib/trametinib with response in the lungs, liver and abdomen. However, he now has progression of brain metastases with at least 8 new brain metastases. We discussed options including repeat WBRT and GKRS. Of these, I favor GKRS. The rationale, risks, acute/late side effects, benefits, mechanics, personnel and alternatives were reviewed in detail with the patient and his family. All questions were answered to their satisfaction. The patient signed informed consent agrees to proceed with simulation and treatment. A total of 60 minutes were spent with the patient of which over 50% was spent discussing treatment recommendations. GKBMET: Primary disease controlled:No, Extracranial disease:Yes, Prior systemic therapy for metastasis:Yes, # of brain metastases: 8, GTR of brain metastasis:No, Prior WBRT:Yes, Planned dose (use highest dose for multiple lesions): 24Gy Head frame will be used. Radiosurgery will be done in a single fraction using the Gamma Knife Perfexion system, which uses up to 192 beams of radiation. A head CT and brain MRI will be performed the day of the procedure. The images will be co registered for target contouring and treatment planning. The CT scan is necessary to correct for the spatial distortion of the MRI. Both scans will be evaluated by a radiologist and the results will be discussed with the patient. Signed by: Phyllis Garcia MD cc: Jerry Aguirre, [facility] [address] [place] [address] Jaziel Collazo MD [address] [facility] [id number] Akbar Mcarthur MD-[facility] Clayton Beatty MD- [facility] Referring Provider: JAZIEL COLLAZO [[id number]] Allergies As of Date: 01/23/2018 Noted Allergy Reaction SULFA (SULFONAMIDE ANTIBIOTICS) 08/25/2011 2 - Rash TIZANIDINE 06/04/2017 8 - GI Upset Date Reviewed: 01/23/2018 Reviewed by: Maricarmen (Pcna) KRISTEN Richter - Fully Assessed Reason for Visit: Consult [502] Primary Visit Diagnosis:Brain metastases (HCC) [C79.31] Prescriptions as of 01/23/2018 Sig: RIVAROXABAN 15 MG TABLET Take 1 tablet by mouth daily * PREDNISONE 10 MG TABLET Take 1 tablet by mouth once d* DABRAFENIB 75 MG CAPSULE Take 2 capsules by mouth twic* TRAMETINIB 2 MG TABLET Take 1 tablet by mouth once d* OMEPRAZOLE 40 MG CAPSULE,MALISSA* Take 1 capsule by mouth once * Problem List As Of Date 01/23/2018 Noted Resolved Cord compression (HCC) [G95.20] INVALID FOR* More... Nicotine use disorder, F17.2 [F17.200] INVALID FOR* Brain metastases (HCC) [C79.31] INVALID FOR* Malignant melanoma (HCC) [C43.9] INVALID FOR* Liver metastases (HCC) [C78.7] INVALID FOR* Fall [W19.XXXA] INVALID FOR*08/13/2017 More... Acute deep vein thrombosis (DVT) of femoral vei*INVALID FOR* Medications Discontinued During This Encounter acetaminophen (TYLENOL) 325 mg tablet 01/23/2018 Class: Historical Med Route: ORAL Sig: Take 650 mg by mouth every 6 hours as needed. Disc: Discontinued by Patient thiamine (VITAMIN B1) 100 mg tablet 30 t* 0 08/13/2017 01/23/2018 Route: ORAL Sig: Take 1 tablet by mouth once daily. Disc: Discontinued by Patient vitamin b complex tab 01/23/2018 Class: Historical Med Route: ORAL Sig: Take 1 tablet by mouth once daily. Disc: Discontinued by Patient COMPOUNDED PRESCRIPTION 1 Ea* 0 06/09/2017 01/23/2018 Class: Print RX Cmt: As recommended by Physical Therapy Sig: Outpatient Physical therapy for weakness due to his metastatic malignancy. Disc: Course of therapy completed promethazine (PHENERGAN) 25 mg tablet 30 t* 2 09/23/2017 01/23/2018 Route: ORAL Sig: Take 1 tablet by mouth every 6 hours as needed. FOR NAUSEA Disc: Discontinued by Patient traMADol (ULTRAM) 50 mg tablet 06/08/2017 01/23/2018 Class: Historical Med Sig: EVERY 6 HOURS NEEDED Disc: Discontinued by Patient albuterol HFA (PROAIR HFA) 90 mcg/ac* 1 In* 11 09/07/2017 01/23/2018 Route: INHALATION Sig: Inhale 2 Puffs as instructed every 4 hours as needed. Disc: Discontinued by another Health Care Provider Level of Service: NEW PATIENT VISIT LEVEL 5 [[id number]] Disposition: Return if symptoms worsen or fail to improve. Follow-up and Disposition History Recorded Encounter Status:Closed by PHYLLIS GARCIA MD on 01/23/18 PROGRESS Observed: 01/23/2018 Status: COMPLETED Source: [place] 1:45 PM [facility] REPOSITORY HNO ID: [id number] Author: Phyllis Garcia Service: (none) Author Type: Physician Type: Progress Notes Filed: 01/23/2018 4:05 PM Note Text: Radiation Oncology - New Patient/Consult Note PATIENT NAME: Delmi Phillips PATIENT REQUESTING PROVIDER: Dr. Akbar Mcarthur. DIAGNOSIS: 67 year old male with metastatic melanoma (Braf [id number], Nras and c-kit wt) with brain metastases s/p WBRT (37.5Gy) completed 06/2017 and bone metastasis s/p RT to T2-T5 (30Gy) in 06/2017 and S2 with epidural disease s/p RT to L5-sacrum (30Gy/10 fx) completed 12/15/17 s/p keytruda now on dabrafinib/trametinib with progression of brain metastases. HPI: The patient is a 67 year old, right handed male who presents with above diagnosis, for an opinion regarding the role of radiation therapy in the management of the patient's disease. Final recommendations will be communicated back to the requesting physician by way of the shared medical record, or letter to requesting physician via [place] mail. 67 year old man who was initially diagnosed with metastatic melanoma early this year when he presented with progressive left upper chest pain and CT chest on 05/11/17 showed numerous bilateral lung and pleural based small nodules and a?subcutaneous soft tissue mass measuring 34 x 25 mm at the level of T2 in the posterior dorsal midline region. There was T4 vertebral body compression fracture with blastic appearance in the left side. CT abdomen/pelvis on 05/25/17 showed multiple hypodense nodules in the liver suggestive of diffuse metastatic disease and several peripheral nodules in the spleen. MRI of the spine on 06/04/17 showed, Multiple areas of abnormal marrow signal in the MID thoracic vertebrae. T4 is most affected which shows a 50% pathologic compression fracture with abnormal epidural metastatic soft tissue. ?This results in moderate CORD compression at this level without evidence for cord signal abnormality. ? He underwent biopsy of a liver mass on 06/06/17 and pathology showed Metastatic melanoma, involving hepatic parenchyma. ? He developed left arm and leg numbness/tingling and difficulties with balance in early June and went to the [facility] ER. He was transferred to [facility]. MRI brain on 06/09/17 showed multiple brain metastases. He had palliative RT to the brain with 37.5Gy in 15 fractions and to T2-T5 with 30 Gy in 10 fractions. He was then treated with Keytruda followed by Dabrafenib/trametinib started on 09/19/2017. CT chest/abdomen/pelvis on 11/07/17 showed significant decrease in the size and number of pulmonary nodules and decrease in adenopathy. There were decrease in the size and/or number of lesions within the liver, adrenal glands, mesentery and bone. ? He developed erectile dysfunction in July and then urinary and stool incontinence. MRI of the lumbar spine on 11/24/17 showed bone metastasis at S2 with cortical disruption posteriorly along the S2 vertebra, with increased soft tissue in the epidural space consistent with epidural extension of disease. He received RT to L5-sacrum 30Gy in 10 fx completed 12/15/17 in [place]. ? He has been on prednisone 10mg daily. He reports left foot slapping. His bowel and bladder incontinence are improving. Denies any pain. Able to walk short distances without cane or walker. ALLERGIES Allergen Reactions - Sulfa (Sulfonamide * Rash - Tizanidine GI Upset MEDICATIONS: rivaroxaban (XARELTO) 15 mg tablet Take 1 tablet by mouth daily with dinner. vitamin b complex tab Take 1 tablet by mouth once daily. predniSONE (DELTASONE) 10 mg tablet Take 1 tablet by mouth once daily. dabrafenib (TAFINLAR) 75 mg cap Take 2 capsules by mouth twice daily. trametinib (MEKINIST) 2 mg tab Take 1 tablet by mouth once daily. promethazine (PHENERGAN) 25 mg tablet Take 1 tablet by mouth every 6 hours as needed. FOR NAUSEA albuterol HFA (PROAIR HFA) 90 mcg/actuation inhaler Inhale 2 Puffs as instructed every 4 hours as needed. thiamine (VITAMIN B1) 100 mg tablet Take 1 tablet by mouth once daily. Omeprazole (PRILOSEC) 40 mg capsule Take 1 capsule by mouth once daily. traMADol (ULTRAM) 50 mg tablet EVERY 6 HOURS NEEDED COMPOUNDED PRESCRIPTION Outpatient Physical therapy for weakness due to his metastatic malignancy. acetaminophen (TYLENOL) 325 mg tablet Take 650 mg by mouth every 6 hours as needed. 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 RESPIRATORY: Negative for cough or shortness of breath. CARDIAC: Negative for chest pain, palpitations, murmurs, or syncopal episodes. GI: Negative, except for bowel incontinence but improving : Negative, except for urgency on occasion and incontinence that is improving MUSCULOSKELETAL: Negative, except for left foot falling HEMATOLOGIC: Negative, except for bruises easily SKIN: Negative for rashes or other skin changes. Neuro detailed: Headache: No Pain: No Pain interventions: none required Fatigue: moderate Decreased visual acuity: No Diplopia: No Visual Field Changes: No Tinnitus: No Hearing loss: Chronic hearing loss Dysphagia: No Decreased balance: mild Arm/leg numbness: No Focal weakness: No Limb discoordination: No Disorientation: none Decreased concentration: none Memory changes: none Word finding difficulty: none Dysarthria: none Seizures: No ROS completed by RN. Joanne Bernardo RN PHYSICAL EXAM: VS: BP 131/85 Pulse 101 Temp 37 ?C (98.6 ?F) (Oral) Resp 20 Wt 63 kg (139 lb) SpO2 100% BMI 19.94 kg/m? KPS: 80 Neuro function score (NFS): NFS 1 (Minor neurologic symptoms; fully active at home/work without assistance) General Appearance: Alert and oriented. No acute distress. Neck: Normal ROM. Chest: No respiratory distress. Musculoskeletal: No edema. Neuro: Speech fluent. CN II-XII intact except dec hearing biliaterally. Unable to recite zipcode backwards. Strength intact and symmetric, 5/5 throughout. Sensation intact to light touch. Normal gait. FNF intact. Tandem gait moderately unsteady. No other focal deficits. Skin: No rashes noted RADIOLOGY/LABORATORY DATA: MRI Brain 01/18/18 COMPARISON: MRI brain 08/21/2017. RESULT: Acute Change: ? There is no evidence of restricted diffusion to suggest an acute infarct. Hemorrhage: ? ?Susceptibility artifact associated with some of the intracranial lesions reflects hemorrhagic metastasis. Mass Lesion/ Mass Effect: ? ?The previously noted supratentorial and infratentorial parenchymal metastasis has decreased in size and enhancement. ?However, there has been interval development of multiple new parenchymal metastases. There is a new 4 mm enhancing lesion in the right superior frontal gyrus on series 10 image 29. There is a new 5 mm enhancing lesion in the left superior frontal gyrus image 32. There is a 3 mm focus of leptomeningeal enhancement versus small parenchymal lesion in the medial left frontal gyrus image 35, new. New 5 mm right marginal gyrus lesion on image 51. New 7 mm left medial cerebellar lesion on image 85 New 1 mm punctate enhancing focus in the left precuneus gyrus on image 65 New 6 mm enhancing lesion in the left superior parietal gyrus on image 25 New 8 mm left lingual gyrus lesion on image 74 Chronic Change: ?Confluent periventricular white matter T2/FLAIR hyperintensity has progressed from 08/15/2017, which likely represent a combination of chronic microvascular ischemia and postirradiation changes. Parenchyma: ? No significant volume loss for age. Ventricles: ? ? Normal caliber and morphology. Skull Base: ? ?Hypothalamic and pituitary region are grossly normal. ? Craniocervical junction is normal. ?Redemonstration of stable multiple foci of marrow replacement in the calvarium, suggesting osseous metastasis.. Vasculature: ? ?Major intracranial arterial structures, and dural venous sinuses show typical flow void, suggesting patency by spin echo criteria. Other: Bilateral, right greater than left mastoid effusions. ?Polypoid mucosal thickening in the left maxillary sinus. ?The orbits and extracranial soft tissues are unremarkable. IMPRESSION: Intraparenchymal metastasis noted on previous study 08/15/2017 has decreased in size and enhancement. ?However, there has been interval development of multiple new parenchymal metastases as detailed above. ASSESSMENT AND PLAN: 67yo M with metastatic melanoma (Braf [id number], Nras and c-kit wt) with widespread metastases including in brain and spine s/p WBRT (37.5 Gy) and T2-T5 RT (30Gy) both in 06/2017 and L5-sacrum RT (30Gy) completed 12/15/2017. H ereceived keytruda and is now on dabrafinib/trametinib with response in the lungs, liver and abdomen. However, he now has progression of brain metastases with at least 8 new brain metastases. We discussed options including repeat WBRT and GKRS. Of these, I favor GKRS. The rationale, risks, acute/late side effects, benefits, mechanics, personnel and alternatives were reviewed in detail with the patient and his family. All questions were answered to their satisfaction. The patient signed informed consent agrees to proceed with simulation and treatment. A total of 60 minutes were spent with the patient of which over 50% was spent discussing treatment recommendations. GKBMET: Primary disease controlled:No, Extracranial disease:Yes, Prior systemic therapy for metastasis:Yes, # of brain metastases: 8, GTR of brain metastasis:No, Prior WBRT:Yes, Planned dose (use highest dose for multiple lesions): 24Gy Head frame will be used. Radiosurgery will be done in a single fraction using the Gamma Knife Perfexion system, which uses up to 192 beams of radiation. A head CT and brain MRI will be performed the day of the procedure. The images will be co registered for target contouring and treatment planning. The CT scan is necessary to correct for the spatial distortion of the MRI. Both scans will be evaluated by a radiologist and the results will be discussed with the patient. Signed by: Phyllis Garcia MD cc: Jerry Aguirre CNP [address] [place] [address] Jaziel Collazo MD [address] [facility] [address] Akbar Mcarthur MD-[facility] Clayton Beatty MD- [facility] Observed: 01/23/2018 Status: COMPLETED Source: [place] 12:00 AM [facility] REPOSITORY Patient Update (NSCAMN) DELMI PHILLIPS ([id number]) 1950 N[birth year] Date Time Provider Department 01/23/18 DONNA NO (RN) NSCAMN During your visit today, we recorded the following information about you: Allergies As of Date: 01/23/2018 Noted Allergy Reaction SULFA (SULFONAMIDE ANTIBIOTICS) 08/25/2011 2 - Rash TIZANIDINE 06/04/2017 8 - GI Upset Date Reviewed: 01/23/2018 Reviewed by: Maricarmen (Pcna) Rober PCNA - Fully Assessed Primary Visit Diagnosis:Brain metastases (HCC) [C79.31] Order(s):MRI BRAIN LOCALIZATION W IVCON [[id number]] Order #: [id number] FUTURE iv contrast (will be provided with radiology test)MRI Brain Localization Inject, intravenously, once for 1 dose.No IV access, insert saline lock prior to beginning of sedation, infusion, injection of imaging exam.Discontinue saline lock post exam. If Pt. has a central line or IVAD, may access for administration according to line specific nursing protocol.Once exam is complete flush line and de-access according to line specific nursing protocol in the MR contrast administration guidelines linkDisp: 1 EachRfl: 0 MRI BRAIN WO/W IVCON [[id number]] Order #: [id number] FUTURE iv contrast (will be provided with radiology test)MRI Brain Inject, intravenously, once for 1 dose.No IV access, insert saline lock prior to beginning of sedation, infusion, injection of imaging exam.Discontinue saline lock post exam. If Pt. has a central line or IVAD, may access for administration according to line specific nursing protocol.Once exam is complete flush line and de- access according to line specific nursing protocol in the MR contrast administration guidelines linkDisp: 1 EachRfl: 0 CT BRAIN STEREOLOCAL WO IVCON [[id number]] Order #: [id number] FUTURE SALINE LOCK INSERTION [[id number]] Order #: [id number]: 1 SURGICAL REQUEST - ELECTIVE [[id number]] Order #: [id number]: 1 Prescriptions as of 01/23/2018 Sig: IV CONTRAST (RADIOLOGY PROCED* MRI Brain Localization Inject* IV CONTRAST (RADIOLOGY PROCED* MRI Brain Inject, intravenous* RIVAROXABAN 15 MG TABLET Take 1 tablet by mouth daily * PREDNISONE 10 MG TABLET Take 1 tablet by mouth once d* DABRAFENIB 75 MG CAPSULE Take 2 capsules by mouth twic* TRAMETINIB 2 MG TABLET Take 1 tablet by mouth once d* OMEPRAZOLE 40 MG CAPSULE,MALISSA* Take 1 capsule by mouth once * Problem List As Of Date 01/23/2018 Noted Resolved Cord compression (HCC) [G95.20] INVALID FOR* More... Nicotine use disorder, F17.2 [F17.200] INVALID FOR* Brain metastases (HCC) [C79.31] INVALID FOR* Malignant melanoma (HCC) [C43.9] INVALID FOR* Liver metastases (HCC) [C78.7] INVALID FOR* Fall [W19.XXXA] INVALID FOR*08/13/2017 More... Acute deep vein thrombosis (DVT) of femoral vei*INVALID FOR* Prescriptions ordered this encounter Disp Refills Start End IV CONTRAST (RADIOLOGY PROCEDURE) 1 Ea* 0 01/24/2018 01/24/2018 Class: In Office Sig: MRI Brain Localization Inject, intravenously, once for 1 dose.No IV access, insert saline lock prior to beginning of sedation, infusion, injection of imaging exam.Discontinue saline lock post exam. If Pt. has a central line or IVAD, may access for administration according to line specific nursing protocol.Once exam is complete flush line and de-access according to line specific nursing protocol in the MR contrast administration guidelines link IV CONTRAST (RADIOLOGY PROCEDURE) 1 Ea* 0 01/24/2018 01/24/2018 Class: In Office Sig: MRI Brain Inject, intravenously, once for 1 dose.No IV access, insert saline lock prior to beginning of sedation, infusion, injection of imaging exam.Discontinue saline lock post exam. If Pt. has a central line or IVAD, may access for administration according to line specific nursing protocol.Once exam is complete flush line and de-access according to line specific nursing protocol in the MR contrast administration guidelines link Follow-up and Disposition History Recorded Encounter Status:Closed by CLAYTON BEATTY MD on 01/24/18 PROGRESS Observed: 01/18/2018 Status: COMPLETED Source: [place] 2:18 PM [facility] REPOSITORY HNO ID: [id number] Author: Shawna (Rt) Antoine Nash Service: (none) Author Type: Pump Servicer Type: Progress Notes Filed: 01/18/2018 2:19 PM Note Text: Radiology Service Progress Note PATIENT NAME: Delmi Phillips DATE OF SERVICE: January 18, 2018 TIME: 2:18 PM PATIENT IDENTITY VERIFICATION COMPLETED USING TWO (2) METHODS: Patient confirmed name verbally and Date of . PATIENT GENDER DATA: Male PATIENT RELEVANT IMPLANT DATA REVIEWED: Yes CONTRAST INDUCED NEPHROPATHY RISK FACTORS: Patient age > 60 years CREATININE: Creatinine Date Value Ref Range Status 01/18/2018 0.66 (L) 0.73 - 1.22 mg/dL Final 11/07/2017 0.60 0.6 - 1.2 mg/dL Final 10/18/2017 0.66 (L) 0.73 - 1.22 mg/dL Final eGFR-All Other Races Date Value Ref Range Status 01/18/2018 >60 . Final Comment: eGFR (Estimated GFR) Units of measure: mL/min/1.73 meters squared eGFR is derived from the reexpressed MDRD Study equation using the following parameters: serum creatinine, age, gender and race. The creatinine assay has been calibrated to be traceable to IDMS. An eGFR <60 mL/min/1.73m2 for >3 months is consistent with chronic kidney disease. Refer to KDOQI guidelines for clinical interpretation. In patients with unstable renal function, e.g. those with acute kidney injury, the eGFR may not accurately reflect actual GFR. eGFR- Date Value Ref Range Status 01/18/2018 >60 Final P.O.C.T. RESULTS: POC done: Yes, See Lab Tab January 18, 2018 RADIOLOGIST NOTIFIED?: No ALLERGIES: Reviewed and unchanged CONTRAST ALLERGY: NO. PERIPHERAL IV ACCESS: Ambulatory: IV type: A peripheral IV was started in the Right antecubital site with a Angio cath: 22 gauge., Site assessment: Clean,Dry and Intact, Site disposition Discontinued RADIOLOGY DEPARTMENT: MR; Exam(s) Completed: Head: Routine Brain SIGNED BY: RT Feng January 18, 2018 2:18 PM MRI BRAIN WO/W Observed: 01/18/2018 Status: F Source: [place] 2:05 PM [facility] REPOSITORY * * *Final Report* * * DATE OF EXAM: Jan 18 2018 2:05PM WRM [id number] - MRI BRAIN WO/W IVCON / PROCEDURE REASON: multiple diagnoses * * * * Physician Interpretation * * * * EXAMINATION: MRI BRAIN WO/W IVCON CLINICAL HISTORY: Malignant melanoma of the skin. Liver and brain metastasis. TECHNIQUE: Intracranial mass MRI protocol without and with contrast including diffusion images. MQ: [id number] Contrast: 12ml mL Dotarem IV COMPARISON: MRI brain 08/21/2017. RESULT: Acute Change: There is no evidence of restricted diffusion to suggest an acute infarct. Hemorrhage: Susceptibility artifact associated with some of the intracranial lesions reflects hemorrhagic metastasis. Mass Lesion/ Mass Effect: The previously noted supratentorial and infratentorial parenchymal metastasis has decreased in size and enhancement. However, there has been interval development of multiple new parenchymal metastases. There is a new 4 mm enhancing lesion in the right superior frontal gyrus on series 10 image 29. There is a new 5 mm enhancing lesion in the left superior frontal gyrus on image 32. There is a 3 mm focus of leptomeningeal enhancement versus small parenchymal lesion in the medial left frontal gyrus image 35, new. New 5 mm right marginal gyrus lesion on image 51. New 7 mm left medial cerebellar lesion on image 85 New 1 mm punctate enhancing focus in the left precuneus gyrus on image 65 New 6 mm enhancing lesion in the left superior parietal gyrus on image 25 New 8 mm left lingual gyrus lesion on image 74 Chronic Change: Confluent periventricular white matter T2/FLAIR hyperintensity has progressed from 08/15/2017, which likely represent a combination of chronic microvascular ischemia and postirradiation changes. Parenchyma: No significant volume loss for age. Ventricles: Normal caliber and morphology. Skull Base: Hypothalamic and pituitary region are grossly normal. Craniocervical junction is normal. Redemonstration of stable multiple foci of marrow replacement in the calvarium, suggesting osseous metastasis.. Vasculature: Major intracranial arterial structures, and dural venous sinuses show typical flow void, suggesting patency by spin echo criteria. Other: Bilateral, right greater than left mastoid effusions. Polypoid mucosal thickening in the left maxillary sinus. The orbits and extracranial soft tissues are unremarkable. IMPRESSION: Intraparenchymal metastasis noted on previous study 08/15/2017 has decreased in size and enhancement. However, there has been interval development of multiple new parenchymal metastases as detailed above. Senior Piping Designer: MERRY Transcribe Date/Time: Jan 18 2018 3:34P Dictated by : DANIEL FIGUEROA MD This examination was interpreted and the report reviewed and electronically signed by: MEGAN MAN MD on Jan 18 2018 4:27PM EST [id number] + CBC Collected: 01/18/2018 Status: F Source: [place] 1:15 PM [facility] REPOSITORY TYPE CODE TESTS RESULT OUT OF REFERENCE UNITS RANGE LAB WWBC 3.70-11.00 k/uL [place] WBC 6.12 LAB WRBC 4.20-6.00 m/uL Low [place] RBC 3.20 LAB WHGB 13.0-17.0 g/dL Low [place] Hemoglobin 9.1 LAB WHCT 39.0-51.0 % Low [place] Hematocrit 30.0 LAB WMCV 80.0-100.0 fL [place] MCV 93.8 LAB WMCH 26.0-34.0 pg Wendy MCH 28.4 LAB WMCHC 30.5-36.0 g/dL Low Wendy MCHC 30.3 LAB WRDW 11.5-15.0 % [place] High RDW 15.5 LAB WPLT 150-400 k/uL Wendy Platelet Cnt 310 LAB WMPV 9.0-12.7 fL Wendy MPV 9.0 Result Comment: Test performed at: [facility], [address] [place] [address]. LAB ABGRAN 1.45-7.50 k/uL Absol Gran 4.65 Count COMP METABOLIC PANEL Collected: 01/18/2018 Status: F Source: [place] 1:15 PM [facility] REPOSITORY TYPE CODE TESTS RESULT OUT OF REFERENCE UNITS RANGE LAB TP 6.3-8.0 g/dL Low Protein, Total 5.5 LAB ALB 3.9-4.9 g/dL Low Albumin 2.7 LAB CA 8.5-10.2 mg/dL Low Calcium, Total 8.3 LAB TBIL 0.2-1.3 mg/dL Bilirubin, Total 0.3 LAB ALKP 38-113 U/L Alkaline High Phosphatase 183 LAB AST 14.48 U/L AST High 54 Result Comment: Male reference range: 14-40 U/L LAB GLU 74-99 mg/dL Glucose High 135 LAB BUN 7-21 mg/dL BUN 10 LAB CRET 0.73-1.22 mg/dL Low Creatinine 0.66 LAB NA 136-144 mmol/L Low Sodium 134 LAB K 3.7-5.1 mmol/L Potassium 3.7 LAB CL 97-105 mmol/L Chloride 104 LAB CO2 22-30 mmol/L Low CO2 20 LAB AGAP 9-18 mmol/L Anion Gap 10 LAB ALT 10-54 U/L ALT 30 LAB GFRAA eGFR- Amer. >60 LAB GFRNAA . eGFR-All Other Races >60 Result Comment: eGFR (Estimated GFR) Units of measure: mL/min/1.73 meters squared eGFR is derived from the reexpressed MDRD Study equation using the following parameters: serum creatinine, age, gender and race. The creatinine assay has been calibrated to be traceable to IDMS. An eGFR <60 mL/min/1.73m2 for >3 months is consistent with chronic kidney disease. Refer to KDOQI guidelines for clinical interpretation. In patients with unstable renal function, e.g. those with acute kidney injury, the eGFR may not accurately reflect actual GFR. PROGRESS Observed: 01/12/2018 Status: COMPLETED Source: [place] 1:21 PM [facility] [place] REPOSITORY HNO ID: [id number] Author: Jaziel Collazo Service: (none) Author Type: Physician Type: Progress Notes Filed: 01/12/2018 1:53 PM Note Text: Radiation Oncology - Follow Up Note PATIENT NAME: Delmi Phillips PATIENT DIAGNOSIS: Metastatic melanoma with bone metastasis at S2 and epidural disease, s/p palliative radiation treatment finished on 12/15/17. INTERVAL HISTORY: He is here for a routine follow-up four weeks after completion of radiation treatment. He reports that his pain has resolved now. His urinary incontinence has been improving. He denies any headaches or nausea. ALLERGIES Allergen Reactions - Sulfa (Sulfonamide * Rash - Tizanidine GI Upset MEDICATIONS: vitamin b complex tab Take 1 tablet by mouth once daily. predniSONE (DELTASONE) 10 mg tablet Take 1 tablet by mouth once daily. dabrafenib (TAFINLAR) 75 mg cap Take 2 capsules by mouth twice daily. trametinib (MEKINIST) 2 mg tab Take 1 tablet by mouth once daily. promethazine (PHENERGAN) 25 mg tablet Take 1 tablet by mouth every 6 hours as needed. FOR NAUSEA rivaroxaban (XARELTO) 15 mg tablet Take 1 tablet by mouth twice daily. for 3 weeks. Then take 20 mg daily thereafter. albuterol HFA (PROAIR HFA) 90 mcg/actuation inhaler Inhale 2 Puffs as instructed every 4 hours as needed. Omeprazole (PRILOSEC) 40 mg capsule Take 1 capsule by mouth once daily. acetaminophen (TYLENOL) 325 mg tablet Take 650 mg by mouth every 6 hours as needed. rivaroxaban (XARELTO) 20 mg tablet Take 1 tablet by mouth daily with dinner. thiamine (VITAMIN B1) 100 mg tablet Take 1 tablet by mouth once daily. traMADol (ULTRAM) 50 mg tablet EVERY 6 HOURS NEEDED COMPOUNDED PRESCRIPTION Outpatient Physical therapy for weakness due to his metastatic malignancy. PHYSICAL EXAM: VS: BP 128/68 Pulse 67 Temp 36.4 ?C (97.5 ?F) (Temporal Artery) Resp 20 Wt 63.5 kg (140 lb) SpO2 99% BMI 20.09 kg/m? KPS: 70 General Appearance: Alert and oriented. No acute distress. ASSESSMENT AND PLAN: Good palliative response to radiation treatment. He was supposed to have MRI Brain back in November but it's not done. He will have it done before he sees Dr. Mcarthur on 01/23/18. Signed by: Jaziel Collazo MD cc: Jerry Aguirre, [employer] [address] [place] [address] CHAD Observed: 01/12/2018 Status: COMPLETED Source: [place] 1:00 PM [facility] REPOSITORY Office Visit (RADTWS) DELMI PHILLIPS ([id number]) 1950 M Date Time Provider Department 01/12/18 1:00 PM JAZIEL COLLAZO During your visit today, we recorded the following information about you: Temperature Pulse Respiration Blood pressure 97.5 degrees 67/minute 20/minute 128/68 Weight 63.5 kg Jaziel Collazo MD 01/12/2018 1:53 PM Signed Radiation Oncology - Follow Up Note PATIENT NAME: Delmi Phillips PATIENT DIAGNOSIS: Metastatic melanoma with bone metastasis at S2 and epidural disease, s/p palliative radiation treatment finished on 12/15/17. INTERVAL HISTORY: He is here for a routine follow-up four weeks after completion of radiation treatment. He reports that his pain has resolved now. His urinary incontinence has been improving. He denies any headaches or nausea. ALLERGIES Allergen Reactions - Sulfa (Sulfonamide * Rash - Tizanidine GI Upset MEDICATIONS: vitamin b complex tab Take 1 tablet by mouth once daily. predniSONE (DELTASONE) 10 mg tablet Take 1 tablet by mouth once daily. dabrafenib (TAFINLAR) 75 mg cap Take 2 capsules by mouth twice daily. trametinib (MEKINIST) 2 mg tab Take 1 tablet by mouth once daily. promethazine (PHENERGAN) 25 mg tablet Take 1 tablet by mouth every 6 hours as needed. FOR NAUSEA rivaroxaban (XARELTO) 15 mg tablet Take 1 tablet by mouth twice daily. for 3 weeks. Then take 20 mg daily thereafter. albuterol HFA (PROAIR HFA) 90 mcg/actuation inhaler Inhale 2 Puffs as instructed every 4 hours as needed. Omeprazole (PRILOSEC) 40 mg capsule Take 1 capsule by mouth once daily. acetaminophen (TYLENOL) 325 mg tablet Take 650 mg by mouth every 6 hours as needed. rivaroxaban (XARELTO) 20 mg tablet Take 1 tablet by mouth daily with dinner. thiamine (VITAMIN B1) 100 mg tablet Take 1 tablet by mouth once daily. traMADol (ULTRAM) 50 mg tablet EVERY 6 HOURS NEEDED COMPOUNDED PRESCRIPTION Outpatient Physical therapy for weakness due to his metastatic malignancy. PHYSICAL EXAM: VS: BP 128/68 Pulse 67 Temp 36.4 ?C (97.5 ?F) (Temporal Artery) Resp 20 Wt 63.5 kg (140 lb) SpO2 99% BMI 20.09 kg/m? KPS: 70 General Appearance: Alert and oriented. No acute distress. ASSESSMENT AND PLAN: Good palliative response to radiation treatment. He was supposed to have MRI Brain back in November but it's not done. He will have it done before he sees Dr. Mcarthur on 01/23/18. Signed by: Jaziel Collazo MD cc: Jerry Aguirre, [employer] [address] [place] [address] Ellen Enrique RN, RN 01/12/2018 1:32 PM Signed Radiation Therapy - Nursing Note (Follow-up) PATIENT NAME: Delmi Phillips PATIENT January 12, 2018 [facility] FACILITY/LOCATION: [place] Reason for visit: Follow up. Subjective Data No c/o Additional Data Do you want to see a Manager Distribution Center? No Nursing Assessment Fatigue: moderate; causing difficulty performing some activities Appetite: good Weight Gain/Loss: No Last 6 Encounter Wt Readings: Date: Wt: 01/12/2018 63.5 kg (140 lb) 12/13/2017 64.4 kg (142 lb) 11/28/2017 65.5 kg (144 lb 8 oz) 11/21/2017 64.9 kg (143 lb) 10/18/2017 64 kg (141 lb) 09/07/2017 70.8 kg (156 lb) Bowel Function: normal bowel movements Bone Pain: none Focused Assessment L5-sacrum- states pain is better Was KP approved? did not have tablet SIGNED by: Ellen Enrique RN Referring Provider: JAZIEL COLLAZO [[id number]] Allergies As of Date: 01/12/2018 Noted Allergy Reaction SULFA (SULFONAMIDE ANTIBIOTICS) 08/25/2011 2 - Rash TIZANIDINE 06/04/2017 8 - GI Upset Date Reviewed: 01/12/2018 Reviewed by: Ellen (Rn) Quang RN - Fully Assessed Reason for Visit: Recheck [92] Primary Visit Diagnosis:Bone metastasis (HCC) [C79.51] Prescriptions as of 01/12/2018 Sig: VITAMIN B COMPLEX TABLET Take 1 tablet by mouth once d* PREDNISONE 10 MG TABLET Take 1 tablet by mouth once d* DABRAFENIB 75 MG CAPSULE Take 2 capsules by mouth twic* TRAMETINIB 2 MG TABLET Take 1 tablet by mouth once d* PROMETHAZINE 25 MG TABLET Take 1 tablet by mouth every * RIVAROXABAN 15 MG TABLET Take 1 tablet by mouth twice * ALBUTEROL SULFATE HFA 90 MCG/* Inhale 2 Puffs as instructed * OMEPRAZOLE 40 MG CAPSULE,MALISSA* Take 1 capsule by mouth once * ACETAMINOPHEN 325 MG TABLET Take 650 mg by mouth every 6 * RIVAROXABAN 20 MG TABLET Take 1 tablet by mouth daily * THIAMINE HCL (VITAMIN B1) 100* Take 1 tablet by mouth once d* TRAMADOL 50 MG TABLET EVERY 6 HOURS NEEDED COMPOUNDED PRESCRIPTION Outpatient Physical therapy f* Problem List As Of Date 01/12/2018 Noted Resolved Cord compression (HCC) [G95.20] INVALID FOR* More... Nicotine use disorder, F17.2 [F17.200] INVALID FOR* Brain metastases (HCC) [C79.31] INVALID FOR* Malignant melanoma (HCC) [C43.9] INVALID FOR* Liver metastases (HCC) [C78.7] INVALID FOR* Fall [W19.XXXA] INVALID FOR*08/13/2017 More... Acute deep vein thrombosis (DVT) of femoral vei*INVALID FOR* Visit Notes: >> Ellen (Rn) TANYA Enrique [facility] Jan 12, 2018 1:28 PM Status: Signed Radiation Therapy - Nursing Note (Follow-up) PATIENT NAME: Delmi Phillips PATIENT January 12, 2018 [facility] FACILITY/LOCATION: [place] Reason for visit: Follow up. Subjective Data No c/o Additional Data Do you want to see a Manager Distribution Center? No Nursing Assessment Fatigue: moderate; causing difficulty performing some activities Appetite: good Weight Gain/Loss: No Last 6 Encounter Wt Readings: Date: Wt: 01/12/2018 63.5 kg (140 lb) 12/13/2017 64.4 kg (142 lb) 11/28/2017 65.5 kg (144 lb 8 oz) 11/21/2017 64.9 kg (143 lb) 10/18/2017 64 kg (141 lb) 09/07/2017 70.8 kg (156 lb) Bowel Function: normal bowel movements Bone Pain: none Focused Assessment L5-sacrum- states pain is better Was KP approved? did not have tablet SIGNED by: Ellen Enrique RN Encounter Status:Closed by JAZIEL COLLAZO MD on 01/12/18 CNCNPATED Observed: 12/15/2017 Status: COMPLETED Source: [place] 12:00 AM [facility] REPOSITORY Education [facility] DELMI PHILLIPS ([id number]) 1950 M Date Time Provider Department 12/15/17 JAZIEL COLLAZO Reason for Visit: discharge instructions [Other] Cmt: completed radiation Visit Notes: >> Alverto Jones RN [facility] Dec 15, 2017 2:09 PM Status: Signed AMBULATORY PATIENT EDUCATION NOTE TOPIC: SURVIVAL SKILLS: Symptom Management READINESS TO LEARN COGNITIVE ABILITY: Alert and oriented MOTIVATION TO LEARN: Eager Interested FAMILY SUPPORT: High - Very involved in pt care INSTRUCTION PROVIDED TO: Patient and family member PATIENT LEARNS BEST BY: Multiple Methods FACTORS AFFECTING LEARNING: None PHYSICAL LIMITATIONS AFFECTING LEARNING: None LEARNING RESPONSE DIAGNOSIS: C79.31 METHOD OF INSTRUCTION: Teach Back skin care Individual instruction Written instruction - handouts Verbal instruction PATIENT / FAMILY RESPONSE: Verbalizes understanding of: SYMPTOM MANAGEMENT-Correct actions to take to manage symptoms associated with his/her disease/illness FOLLOW-UP PLAN: Patient instructed to call with any further issues Reinforce - Repeat previous content Contact information given. SUPPLEMENTAL MATERIAL: D/C sheet REFERRAL (RECOMMENDATION): None Written discharge instructions given and reviewed with patient. Patient verbalizes understanding. Encouraged to call with any questions or concerns. Instruction for 4 week follow up appointment given by Dr. Collazo. Electronically Signed By: Alverto Jones RN In Department: RADIATION ONCOLOGY During your visit today, we recorded the following information about you: Allergies As of Date: 12/15/2017 Noted Allergy Reaction SULFA (SULFONAMIDE ANTIBIOTICS) 08/25/2011 2 - Rash TIZANIDINE 06/04/2017 8 - GI Upset Date Reviewed: 12/13/2017 Reviewed by: Ellen (Rn) TANYA Enrique - Fully Assessed Prescriptions as of 12/15/2017 Sig: DEXAMETHASONE 4 MG TABLET Take 1 tablet by mouth twice * Patient not taking: Reported on 12/13/2017 VITAMIN B COMPLEX TABLET Take 1 tablet by mouth once d* PREDNISONE 10 MG TABLET Take 1 tablet by mouth once d* DABRAFENIB 75 MG CAPSULE Take 2 capsules by mouth twic* TRAMETINIB 2 MG TABLET Take 1 tablet by mouth once d* RIVAROXABAN 20 MG TABLET Take 1 tablet by mouth daily * PROMETHAZINE 25 MG TABLET Take 1 tablet by mouth every * RIVAROXABAN 15 MG TABLET Take 1 tablet by mouth twice * ALBUTEROL SULFATE HFA 90 MCG/* Inhale 2 Puffs as instructed * THIAMINE HCL (VITAMIN B1) 100* Take 1 tablet by mouth once d* OMEPRAZOLE 40 MG CAPSULE,MALISSA* Take 1 capsule by mouth once * TRAMADOL 50 MG TABLET EVERY 6 HOURS NEEDED COMPOUNDED PRESCRIPTION Outpatient Physical therapy f* ACETAMINOPHEN 325 MG TABLET Take 650 mg by mouth every 6 * Encounter Status:Closed by ALVERTO JONES on 12/15/17 PROGRESS Observed: 12/15/2017 Status: COMPLETED Source: [place] 12:00 AM [facility] REPOSITORY HNO ID: [id number] Author: Jaziel Collazo Service: (none) Author Type: Physician Type: Progress Notes Filed: 12/17/2017 12:34 AM Note Text: DELMI PHILLIPS [id number] : 1950 12/15/2017 [facility] Department of Radiation Oncology RADIATION ONCOLOGY - COMPLETION NOTE DATE OF SIMULATION: 11/29/17 DATES OF TREATMENT: 12/01/17 to 12/15/17 UNIT: W_[facility] AREA TREATED: L5 to Sacrum DISEASE: 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 DELIVERED DOSE: 3000 cGy in 10 fractions to the 98% isodose line with 15 MV and 3 springer. ELAPSED TIME: 14 days. TOLERANCE/ RESPONSE: He reports that urinary incontinence and stool incontinence have improved. His lower back pain also improved and he can now walk a short distance without a walker. REMARKS: He tolerated radiation treatment well. I will see him in four weeks for a routine follow-up. Electronically Signed JAZIEL COLLAZO M.D. 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 COURSE: palliative AREA TREATED: L5 to Sacrum CURRENT DOSE: 2400 cGy in 8 fx PLANNED DOSE: 3000 cGy in 10 fx SUBJECTIVE: He reports that urinary incontinence and stool incontinence has improved. His lower back pain also improved and he can now walk a short distance without a walker. EXAM: KPS: 70 BP 111/70 Pulse 91 Temp 36.3 ?C (97.4 ?F) (Temporal Artery) Resp 20 Wt 64.4 kg (142 lb) SpO2 100% BMI 20.37 kg/m? General Appearance: Alert and oriented. No acute distress. IMAGING/LAB RESULTS: None Treatment chart checked: Yes Patient treatment site reviewed and verified:Yes Port films reviewed and current:Yes Medications started: None ASSESSMENT/PLAN: Clinically improved. No signs of toxicity. Continue radiation treatment as planned. Jaziel Collazo MD CNOV Observed: 12/13/2017 Status: COMPLETED Source: [place] 1:45 PM [facility] REPOSITORY Office Visit ([facility]) DELMI PHILLIPS ([id number]) 1950 M Date Time Provider Department 12/13/17 1:45 PM JAZIEL COLLAZO [facility] During your visit today, we recorded the following information about you: Temperature Pulse Respiration Blood pressure 97.4 degrees 91/minute 20/minute 111/70 Weight 64.4 kg Ellen Enrique, RN, RN 12/13/2017 1:43 PM Signed Radiation Therapy - Nursing Note (OTV) PATIENT NAME: Delmi Phillips PATIENT December 13, 2017 [facility] FACILITY/LOCATION: [place] NURSING NOTE TYPE: L5-sacrum Subjective Data No c/o Additional Data Do you want to see a [employer] Distribution [employer]? No Status: Patient is male Stress Scale: On a scale of 0 to 10, what number best describes how much distress you have experienced in the past week?(0 being no distress and 10 being extreme distress) 1 Social work notified: no Nursing Assessment Fatigue: none Appetite: good Nutritional Intake: Regular oral intake. Weight Gain/Loss: No Ambulatory weight history: Last 6 Encounter Wt Readings: Date: Wt: 12/13/2017 64.4 kg (142 lb) 11/28/2017 65.5 kg (144 lb 8 oz) 11/21/2017 64.9 kg (143 lb) 10/18/2017 64 kg (141 lb) 09/07/2017 70.8 kg (156 lb) 08/17/2017 71.4 kg (157 lb 8 oz) Nausea:None Vomiting: None Bowel Function: constipation 1 - bowel movement every 2 - 3 days Erythema/Hyperpigmentation:none Desquamation:none Rash:none Skin Care: Aquaphor Skin Sensation: Within Normal Limits Focused Assessment L5-sacrum SIGNED by: TANYA Ingram MD 12/13/2017 1:53 PM Signed Radiation Oncology - On Treatment Review (OTR) Note PATIENT NAME: Delmi Phillips PATIENT DIAGNOSIS: 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 COURSE: palliative AREA TREATED: L5 to Sacrum CURRENT DOSE: 2400 cGy in 8 fx PLANNED DOSE: 3000 cGy in 10 fx SUBJECTIVE: He reports that urinary incontinence and stool incontinence has improved. His lower back pain also improved and he can now walk a short distance without a walker. EXAM: KPS: 70 BP 111/70 Pulse 91 Temp 36.3 ?C (97.4 ?F) (Temporal Artery) Resp 20 Wt 64.4 kg (142 lb) SpO2 100% BMI 20.37 kg/m? General Appearance: Alert and oriented. No acute distress. IMAGING/LAB RESULTS: None Treatment chart checked: Yes Patient treatment site reviewed and verified:Yes Port films reviewed and current:Yes Medications started: None ASSESSMENT/PLAN: Clinically improved. No signs of toxicity. Continue radiation treatment as planned. Jaziel Collazo MD Referring Provider: SELF [200] Allergies As of Date: 12/13/2017 Noted Allergy Reaction SULFA (SULFONAMIDE ANTIBIOTICS) 08/25/2011 2 - Rash TIZANIDINE 06/04/2017 8 - GI Upset Date Reviewed: 12/13/2017 Reviewed by: Ellen (Rn) Darm, RN - Fully Assessed Reason for Visit: Radiotherapy On-treatment Visit [1722] Primary Visit Diagnosis:Bone metastasis (HCC) [C79.51] Prescriptions as of 12/13/2017 Sig: VITAMIN B COMPLEX TABLET Take 1 tablet by mouth once d* PREDNISONE 10 MG TABLET Take 1 tablet by mouth once d* DABRAFENIB 75 MG CAPSULE Take 2 capsules by mouth twic* TRAMETINIB 2 MG TABLET Take 1 tablet by mouth once d* PROMETHAZINE 25 MG TABLET Take 1 tablet by mouth every * RIVAROXABAN 15 MG TABLET Take 1 tablet by mouth twice * ALBUTEROL SULFATE HFA 90 MCG/* Inhale 2 Puffs as instructed * OMEPRAZOLE 40 MG CAPSULE,MALISSA* Take 1 capsule by mouth once * ACETAMINOPHEN 325 MG TABLET Take 650 mg by mouth every 6 * DEXAMETHASONE 4 MG TABLET Take 1 tablet by mouth twice * Patient not taking: Reported on 12/13/2017 RIVAROXABAN 20 MG TABLET Take 1 tablet by mouth daily * THIAMINE HCL (VITAMIN B1) 100* Take 1 tablet by mouth once d* TRAMADOL 50 MG TABLET EVERY 6 HOURS NEEDED COMPOUNDED PRESCRIPTION Outpatient Physical therapy f* Problem List As Of Date 12/13/2017 Noted Resolved Cord compression (HCC) [G95.20] INVALID FOR* More... Nicotine use disorder, F17.2 [F17.200] INVALID FOR* Brain metastases (HCC) [C79.31] INVALID FOR* Malignant melanoma (HCC) [C43.9] INVALID FOR* Liver metastases (HCC) [C78.7] INVALID FOR* Fall [W19.XXXA] INVALID FOR*08/13/2017 More... Acute deep vein thrombosis (DVT) of femoral vei*INVALID FOR* Visit Notes: >> Ellen (Rn) TANYA Enrique jerardo Dec 13, 2017 1:42 PM Status: Signed Radiation Therapy - Nursing Note (OTV) PATIENT NAME: Delmi Phillips PATIENT December 13, 2017 [facility] FACILITY/LOCATION: [place] NURSING NOTE TYPE: L5-sacrum Subjective Data No c/o Additional Data Do you want to see a [employer] Distribution [employer]? No Status: Patient is male Stress Scale: On a scale of 0 to 10, what number best describes how much distress you have experienced in the past week?(0 being no distress and 10 being extreme distress) 1 Social work notified: no Nursing Assessment Fatigue: none Appetite: good Nutritional Intake: Regular oral intake. Weight Gain/Loss: No Ambulatory weight history: Last 6 Encounter Wt Readings: Date: Wt: 12/13/2017 64.4 kg (142 lb) 11/28/2017 65.5 kg (144 lb 8 oz) 11/21/2017 64.9 kg (143 lb) 10/18/2017 64 kg (141 lb) 09/07/2017 70.8 kg (156 lb) 08/17/2017 71.4 kg (157 lb 8 oz) Nausea:None Vomiting: None Bowel Function: constipation 1 - bowel movement every 2 - 3 days Erythema/Hyperpigmentation:none Desquamation:none Rash:none Skin Care: Aquaphor Skin Sensation: Within Normal Limits Focused Assessment L5-sacrum SIGNED by: Ellen Enrique RN Encounter Status:Closed by JAZIEL COLLAZO MD on 12/13/17 WENDY ABS GR + CBC Collected: 12/07/2017 Status: F Source: [place] 2:04 PM [facility] REPOSITORY TYPE CODE TESTS RESULT OUT OF REFERENCE UNITS RANGE LAB WWBC 3.70-11.00 k/uL [facility] WBC 6.68 LAB WRBC 4.20-6.00 m/uL Low [place] RBC 3.03 LAB WHGB 13.0-17.0 g/dL Low [facility] Hemoglobin 8.9 LAB WHCT 39.0-51.0 % Low [place] Hematocrit 28.6 LAB WMCV 80.0-100.0 fL [facility] MCV 94.4 LAB WMCH 26.0-34.0 pg [place] MCH 29.4 LAB WMCHC 30.5-36.0 g/dL [facility] MCHC 31.1 LAB WRDW 11.5-15.0 % Wendy RDW 14.6 LAB WPLT 150-400 k/uL [place] Platelet Cnt 394 LAB WMPV 9.0-12.7 fL Low [facility] MPV 8.7 Result Comment: Test performed at: [facility], [address] [place] [address] Rd[address] [place] [address]. 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 COURSE: palliative AREA TREATED: L5 to Sacrum CURRENT DOSE: 900 cGy in 3 fx PLANNED DOSE: 3000 cGy in 10 fx SUBJECTIVE: He reports that urinary incontinence and improved. He continues to have stool incontinence. He denies any pain in the lower back. EXAM: KPS: 70 BP 123/74 Pulse 77 Temp 36.8 ?C (98.2 ?F) (Temporal Artery) Resp 18 SpO2 99% General Appearance: Alert and oriented. No acute distress. IMAGING/LAB RESULTS: None Treatment chart checked: Yes Patient treatment site reviewed and verified:Yes Port films reviewed and current:Yes Medications started: None ASSESSMENT/PLAN: Clinically stable. No signs of toxicity. Continue radiation treatment as planned. Jaziel Collazo MD CNOV Observed: 12/06/2017 Status: COMPLETED Source: [place] 1:45 PM [facility] REPOSITORY Office Visit ([facility]) DELMI PHILLIPS ([id number]) 1950 M Date Time Provider Department 12/06/17 1:45 PM JAZIEL COLLAZO [facility] During your visit today, we recorded the following information about you: Temperature Pulse Respiration Blood pressure 98.2 degrees 77/minute 18/minute 123/74 Alverto Jones, RN, RN 12/06/2017 1:55 PM Signed Radiation Therapy - Nursing Note (OTV) PATIENT NAME: Delmi Phillips PATIENT December 06, 2017 [facility] FACILITY/LOCATION: [place] NURSING NOTE TYPE: R3-iewfhr-md c/o-pt finished Decadron prescription last night Subjective Data no c/o-pt finished Decadron prescription last night Additional Data Do you want to see a [employer] Distribution [employer]? No Status: Patient is male Stress Scale: On a scale of 0 to 10, what number best describes how much distress you have experienced in the past week?(0 being no distress and 10 being extreme distress) 1 Social work notified: Pt denied need to see mental health social worker at this time. Nursing Assessment Fatigue: none Appetite: good Nutritional Intake: Regular oral intake. Weight Gain/Loss: No Ambulatory weight history: Last 6 Encounter Wt Readings: Date: Wt: 11/28/2017 65.5 kg (144 lb 8 oz) 11/21/2017 64.9 kg (143 lb) 10/18/2017 64 kg (141 lb) 09/07/2017 70.8 kg (156 lb) 08/17/2017 71.4 kg (157 lb 8 oz) 08/02/2017 72.3 kg (159 lb 8 oz) Nausea:None Vomiting: None Bowel Function: constipation 1 - bowel movement every 2 - 3 days Erythema/Hyperpigmentation:none Desquamation:none Rash:none Skin Care: Aquaphor Skin Sensation: none itching and none burning Focused Assessment [id number] c/o-pt finished Decadron prescription last night SIGNED by: TANYA Luke MD 12/06/2017 2:21 PM Signed Radiation Oncology - On Treatment Review (OTR) Note PATIENT NAME: Delmi Phillips PATIENT DIAGNOSIS: 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 COURSE: palliative AREA TREATED: L5 to Sacrum CURRENT DOSE: 900 cGy in 3 fx PLANNED DOSE: 3000 cGy in 10 fx SUBJECTIVE: He reports that urinary incontinence and improved. He continues to have stool incontinence. He denies any pain in the lower back. EXAM: KPS: 70 BP 123/74 Pulse 77 Temp 36.8 ?C (98.2 ?F) (Temporal Artery) Resp 18 SpO2 99% General Appearance: Alert and oriented. No acute distress. IMAGING/LAB RESULTS: None Treatment chart checked: Yes Patient treatment site reviewed and verified:Yes Port films reviewed and current:Yes Medications started: None ASSESSMENT/PLAN: Clinically stable. No signs of toxicity. Continue radiation treatment as planned. Jaziel Collazo MD Allergies As of Date: 12/06/2017 Noted Allergy Reaction SULFA (SULFONAMIDE ANTIBIOTICS) 08/25/2011 2 - Rash TIZANIDINE 06/04/2017 8 - GI Upset Date Reviewed: 12/06/2017 Reviewed by: Alverto KoehlerRn) TANYA Jones - Fully Assessed Reason for Visit: OTV [Other] Primary Visit Diagnosis:Bone metastasis (HCC) [C79.51] Prescriptions as of 12/06/2017 Sig: DEXAMETHASONE 4 MG TABLET Take 1 tablet by mouth twice * VITAMIN B COMPLEX TABLET Take 1 tablet by mouth once d* PREDNISONE 10 MG TABLET Take 1 tablet by mouth once d* DABRAFENIB 75 MG CAPSULE Take 2 capsules by mouth twic* TRAMETINIB 2 MG TABLET Take 1 tablet by mouth once d* PROMETHAZINE 25 MG TABLET Take 1 tablet by mouth every * ALBUTEROL SULFATE HFA 90 MCG/* Inhale 2 Puffs as instructed * OMEPRAZOLE 40 MG CAPSULE,MALISSA* Take 1 capsule by mouth once * TRAMADOL 50 MG TABLET EVERY 6 HOURS NEEDED COMPOUNDED PRESCRIPTION Outpatient Physical therapy f* ACETAMINOPHEN 325 MG TABLET Take 650 mg by mouth every 6 * RIVAROXABAN 20 MG TABLET Take 1 tablet by mouth daily * RIVAROXABAN 15 MG TABLET Take 1 tablet by mouth twice * Patient not taking: Reported on 10/18/2017 THIAMINE HCL (VITAMIN B1) 100* Take 1 tablet by mouth once d* Problem List As Of Date 12/06/2017 Noted Resolved Cord compression (HCC) [G95.20] INVALID FOR* More... Nicotine use disorder, F17.2 [F17.200] INVALID FOR* Brain metastases (HCC) [C79.31] INVALID FOR* Malignant melanoma (HCC) [C43.9] INVALID FOR* Liver metastases (HCC) [C78.7] INVALID FOR* Fall [W19.XXXA] INVALID FOR*08/13/2017 More... Acute deep vein thrombosis (DVT) of femoral vei*INVALID FOR* Visit Notes: >> Alverto (Rn) TANYA Jones jerardo Dec 06, 2017 1:51 PM Status: Signed Radiation Therapy - Nursing Note (OTV) PATIENT NAME: Delmi Phillips PATIENT December 06, 2017 [facility] FACILITY/LOCATION: [place] NURSING NOTE TYPE: D1-ckicet-nn c/o-pt finished Decadron prescription last night Subjective Data no c/o-pt finished Decadron prescription last night Additional Data Do you want to see a [employer] Distribution Center? No Status: Patient is male Stress Scale: On a scale of 0 to 10, what number best describes how much distress you have experienced in the past week?(0 being no distress and 10 being extreme distress) 1 Social work notified: Pt denied need to see mental health social worker at this time. Nursing Assessment Fatigue: none Appetite: good Nutritional Intake: Regular oral intake. Weight Gain/Loss: No Ambulatory weight history: Last 6 Encounter Wt Readings: Date: Wt: 11/28/2017 65.5 kg (144 lb 8 oz) 11/21/2017 64.9 kg (143 lb) 10/18/2017 64 kg (141 lb) 09/07/2017 70.8 kg (156 lb) 08/17/2017 71.4 kg (157 lb 8 oz) 08/02/2017 72.3 kg (159 lb 8 oz) Nausea:None Vomiting: None Bowel Function: constipation 1 - bowel movement every 2 - 3 days Erythema/Hyperpigmentation:none Desquamation:none Rash:none Skin Care: Aquaphor Skin Sensation: none itching and none burning Focused Assessment [id number] c/o-pt finished Decadron prescription last night SIGNED by: Alverto Jones RN Encounter Status:Closed by JAZIEL COLLAZO MD on 12/06/17 PROGRESS Observed: 11/30/2017 Status: COMPLETED Source: [place] 3:19 PM [facility] [place] REPOSITORY HNO ID: [id number] Author: Jaziel Collazo Service: (none) Author Type: Physician Type: Progress Notes Filed: 12/01/2017 1:22 PM Note Text: Radiation Oncology - New Patient/Consult Note PATIENT NAME: Delmi Phillips PATIENT REQUESTING PROVIDER: Akbar Mcarthur DO DIAGNOSIS: 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 HPI: 67 year old male who presents with above diagnosis, for an opinion regarding the role of radiation therapy in the management of the patient's disease. Final recommendations will be communicated back to the requesting physician by way of the shared medical record, or letter to requesting physician via [place] mail. 67 year old man who was initially diagnosed with metastatic melanoma early this year when he presented with progressive left upper chest pain and CT chest on 05/11/17 showed numerous bilateral lung and pleural based small nodules and a subcutaneous soft tissue mass measuring 34 x 25 mm at the level of T2 in the posterior dorsal midline region. There was T4 vertebral body compression fracture with blastic appearance in the left side. CT abdomen/pelvis on 05/25/17 showed multiple hypodense nodules in the liver suggestive of diffuse metastatic disease and several peripheral nodules in the spleen. MRI of the spine on 06/04/17 showed, Multiple areas of abnormal marrow signal in the MID thoracic vertebrae. T4 is most affected which shows a 50% pathologic compression fracture with abnormal epidural metastatic soft tissue. ?This results in moderate CORD compression at this level without evidence for cord signal abnormality. ? He underwent biopsy of a liver mass on 06/06/17 and pathology showed Metastatic melanoma, involving hepatic parenchyma. BRAF was negative. ? He developed left arm and leg numbness/tingling and difficulties with balance in early June and went to the [facility] ER. He was transferred to [facility]. MRI brain on 06/09/17 showed multiple brain metastases. He had palliative RT to the brain with 37.5Gy in 15 fractions and to T2-T5 with 30 Gy in 10 fractions. He was then treated with Keytruda followed by Dabrafenib/trametinib started on 09/19/2017. CT chest/abdomen/pelvis on 11/07/17 showed significant decrease in the size and number of pulmonary nodules and decrease in adenopathy. There were decrease in the size and/or number of lesions within the liver, adrenal glands, mesentery and bone. He developed erectile dysfunction in July and then urinary and stool incontinence for the past two months. MRI of the lumbar spine on 11/24/17 showed bone metastasis at S2 with cortical disruption posteriorly along the S2 vertebra, with increased soft tissue in the epidural space consistent with epidural extension of disease. ALLERGIES Allergen Reactions - Sulfa (Sulfonamide * Rash - Tizanidine GI Upset No past medical history on file. Prior radiation therapy, collagen vascular disease, or inflammatory bowel disease: Yes, previous radiation treatment to the brain and T2-T5 as above. PAST SURGICAL HISTORY Procedure Laterality Date - PAST SURGICAL HISTORY OF 2004 bilateral knee replacement FAMILY HISTORY Problem Relation Age of Onset - Cancer Father esophagus - Cancer Brother bladder, lung Social History Marital status: Spouse name: Years of education: Number of children: Social History Main Topics Smoking status: Never Smoker Smokeless tobacco: Current User Types: Snuff Alcohol use: Yes 45.0 oz/week Cans of Beer (12oz): 30 per week Drug use: No COMPLETE REVIEW OF SYSTEMS: GENERAL: Negative for weight loss, fevers, chills, or night sweats. HEENT: Negative for sudden vision or hearing changes. NECK: Negative for masses in the neck. RESPIRATORY: Negative for cough or shortness of breath. CARDIAC: Negative for chest pain, palpitations, murmurs, or syncopal episodes. GI: see HPI. : see HPI. MUSCULOSKELETAL: Negative for limitations in movement, pain, or swelling. NEURO: Negative for dizziness, headache, weakness or numbness. HEMATOLOGIC: He is on Xarelto for h/o DVT. SKIN: He sees Dr. Mukherjee for skin surveillance exams. PHYSICAL EXAM: VS: BP 120/72 Pulse 88 Temp 36.3 ?C (97.4 ?F) (Temporal Artery) Resp 20 Wt 65.5 kg (144 lb 8 oz) SpO2 99% BMI 20.73 kg/m? KPS: 70 General Appearance: Alert and oriented. No acute distress. HEENT: NCAT. Sclera anicteric. EOMI. Neck: Normal ROM. Chest: No respiratory distress. Lungs clear to auscultation bilaterally. Heart: Regular rate and rhythm. Abdomen: Soft. Nontender. Nondistended. Musculoskeletal: No edema. Normal ROM in extremities. Neuro: No gross focal deficits. Skin: No rashes noted Lymphatics: No palpable cervical or supraclavicular adenopathy. RADIOLOGY/LABORATORY DATA: see HPI ASSESSMENT AND PLAN: 67 year old man with metastatic melanoma with bone metastasis at S2 and epidural disease. He developed urinary and stool incontinence recently. I recommend palliative radiation treatment to L5 to sacrum. I explained the rationale, benefits, alternative management options and potential complications of radiation treatment to the patient and he understands and agrees to proceed. It was explained and understood that other personnel such as radiation therapists, electrical intern, and physicists will participate in planning and delivery of radiation treatment. Permanent tattoo stevenson will be placed to aid with positioning for daily treatment and the patient consented. Patient will have a simulation procedure today. Thank you very much for allowing us to participate in his care. Signed by: Jaziel Collazo MD cc: Jerry Aguirre, CARTON MAKER [address] [place] [address] Akbar Mcarthur DO [address] [facility] [place] [address] CNCNPATED Observed: 11/29/2017 Status: COMPLETED Source: [facility] 12:00 AM [facility] REPOSITORY Education (RADTWS) DELMI DEL RIO ([id number]) 1950 M Date Time Provider Department 11/29/17 JAZIEL COLLAZO Reason for Visit: Patient Education [91] Visit Notes: >> Ellen (Tanya) TANYA Enriuqe Nov 29, 2017 12:25 PM Status: Signed Radiation Therapy - Patient Education Note PATIENT NAME: Delmi Phillips PATIENT November 29, 2017 [facility] FACILITY/LOCATION: [facility] READINESS TO LEARN Cognitive Ability: Alert and oriented Motivation to learn: Eager Interested Family Support: High - Very involved in pt care Instruction provide to: Patient and family member Patient learns best by: Individual Instruction Written Instruction - Hand-outs Verbal Instruction Factors effecting learning: None Physical limitations effecting learning: None LEARNING RESPONSE Diagnosis: Pt simulated today for radiation therapy to sacrum. Education Topic/Teaching Points: Radiation therapy, Side effects and OTV: Method of instruction: Teach Back skin care Individual instruction Written instruction - handouts Verbal instruction Patient /Family response: Patient and family verbalized understanding of radiation treatments, side effects, OTV, and transportation. Follow-up plan: Patient instructed to call with any further issues Reinforce - Repeat previous content Contact information given. Supplemental material: Informational handouts on Department phone list, Diarrhea, Fatigue and XRT sheet, [facility] instructions, Aquaphor coupon. Referral (recommendation): None, Pt denied need for social work, van service, and simplex printer installer. Signed by: Ellen Enrique RN During your visit today, we recorded the following information about you: Allergies As of Date: 11/29/2017 Noted Allergy Reaction SULFA (SULFONAMIDE ANTIBIOTICS) 08/25/2011 2 - Rash TIZANIDINE 06/04/2017 8 - GI Upset Date Reviewed: 11/28/2017 Reviewed by: Ellen (Rn) TANYA Enrique - Fully Assessed Prescriptions as of 11/29/2017 Sig: DEXAMETHASONE 4 MG TABLET Take 1 tablet by mouth twice * VITAMIN B COMPLEX TABLET Take 1 tablet by mouth once d* PREDNISONE 10 MG TABLET Take 1 tablet by mouth once d* DABRAFENIB 75 MG CAPSULE Take 2 capsules by mouth twic* TRAMETINIB 2 MG TABLET Take 1 tablet by mouth once d* RIVAROXABAN 20 MG TABLET Take 1 tablet by mouth daily * PROMETHAZINE 25 MG TABLET Take 1 tablet by mouth every * RIVAROXABAN 15 MG TABLET Take 1 tablet by mouth twice * Patient not taking: Reported on 10/18/2017 ALBUTEROL SULFATE HFA 90 MCG/* Inhale 2 Puffs as instructed * THIAMINE HCL (VITAMIN B1) 100* Take 1 tablet by mouth once d* OMEPRAZOLE 40 MG CAPSULE,MALISSA* Take 1 capsule by mouth once * TRAMADOL 50 MG TABLET EVERY 6 HOURS NEEDED COMPOUNDED PRESCRIPTION Outpatient Physical therapy f* ACETAMINOPHEN 325 MG TABLET Take 650 mg by mouth every 6 * Encounter Status:Closed by ELLEN ENRIQUE on 11/29/[address] [facility] [address] NON-RADIOLOGY Observed: 11/29/2017 Status: F Source: [facility] 12:00 AM [facility] REPOSITORY [facility] - CT Images - Obtained Outside of Imaging [place] [id number] PROGRESS Observed: 11/29/2017 Status: COMPLETED Source: [facility] 12:00 AM [facility] REPOSITORY HNO ID: [id number] Author: Jaziel Collazo Service: (none) Author Type: Physician Type: Progress Notes Filed: 11/30/2017 12:34 AM Note Text: DELMI PHILLIPS [id number] 11/29/2017 [facility] Department of Radiation Oncology [facility] RADIATION ONCOLOGY SIMULATION NOTE DATE OF SIMULATION: 11/29/2017 MACHINE: [employer] Definition CT Simulator Diagnosis: 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 AREA:L5 to sacrum PATIENT POSITION: Supine. CONTRAST: None PROTOCOL: None BLOCKING: Custom blocking to be determined at treatment planning. FIXATION DEVICE: In order to achieve accurate and reproducible treatments, the patient is to be immobilized with custom vacbag PROCEDURE: A time-out was conducted and recorded by the therapist. Patient was simulated on the CT scanner for external beam radiation therapy. Treatment site was marked by the simulation therapist. ASSESSMENT/PLAN: Patient tolerated simulation procedure well. Treatments will be initiated after treatment planning. The patient is scheduled for a verification simulation on the treatment machine to ensure proper set-up and field arrangement is correct prior to the first treatment of primary and boost springer if applicable. Electronically Signed Jaziel Collazo M.D./vesta 11/29/20174:31 PM PROGRESS Observed: 11/29/2017 Status: COMPLETED Source: [facility] 12:00 AM [facility] REPOSITORY HNO ID: [id number] Author: Jaziel Collazo Service: (none) Author Type: Physician Type: Progress Notes Filed: 11/30/2017 12:34 AM Note Text: DELMI PHILLIPS [id number] 11/29/2017 [facility] Department of Radiation Oncology Treatment Planning Note For reasons stated in the consult note, Delmi Phillips is a candidate for radiation therapy. Based on review and interpretation of the relevant diagnostic studies together with the exam findings, Delmi Phillips was simulated on 11/29/2017 at which time the target volume and/or requisite springer were delineated, as indicated in the simulation note, to be treated according to the prescription. After reviewing the treatment plan with dosimetry, the plan was approved to deliver the prescribed course of radiation to the target area to allow for the best isodose distribution, treating to the 98% isodose line with 15 MV and 3 springer. Custom MLC wedges asym jaws were the treatment device(s) used to shape/modify the beams. A completed summary of this plan dated 11/29/17 incorporated herein by reference includes dose, beam arrangements, energy, blocking, isodose distribution, and/or ports and DVH. Electronically Signed Jaziel Collazo M.D. 11/29/20174:31 PM CNOV Observed: 11/28/2017 Status: COMPLETED Source: [facility] 2:30 PM [facility] REPOSITORY Office Visit (RADTWS) DELMI PHILLIPS ([id number]) 1950 M Date Time Provider Department 11/28/17 2:30 PM JAZIEL COLLAZO During your visit today, we recorded the following information about you: Temperature Pulse Respiration Blood pressure 97.4 degrees 88/minute 20/minute 120/72 Weight 65.5 kg Ellen Enrique, RN, RN 11/28/2017 2:57 PM Signed Radiation Therapy - Nursing Note (Consult) PATIENT NAME: Delmi Phillips PATIENT November 28, 2017 [facility] FACILITY/LOCATION: [facility] Chief Complaint: consult Reason for visit: Consult. Referring physician: Internal provider Dr. Mcarthur Subjective Data: no c/o Additional Data Do you want to see a Manager Distribution Center? No Are you interested in information about fertility? 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 HPI: 67 year old male who presents with above diagnosis, for an opinion regarding the role of radiation therapy in the management of the patient's disease. Final recommendations will be communicated back to the requesting physician by way of the shared medical record, or letter to requesting physician via US mail. 67 year old man who was initially diagnosed with metastatic melanoma early this year when he presented with progressive left upper chest pain and CT chest on 05/11/17 showed numerous bilateral lung and pleural based small nodules and a subcutaneous soft tissue mass measuring 34 x 25 mm at the level of T2 in the posterior dorsal midline region. There was T4 vertebral body compression fracture with blastic appearance in the left side. CT abdomen/pelvis on 05/25/17 showed multiple hypodense nodules in the liver suggestive of diffuse metastatic disease and several peripheral nodules in the spleen. MRI of the spine on 06/04/17 showed, Multiple areas of abnormal marrow signal in the MID thoracic vertebrae. T4 is most affected which shows a 50% pathologic compression fracture with abnormal epidural metastatic soft tissue. ?This results in moderate CORD compression at this level without evidence for cord signal abnormality. ? He underwent biopsy of a liver mass on 06/06/17 and pathology showed Metastatic melanoma, involving hepatic parenchyma. BRAF was negative. ? He developed left arm and leg numbness/tingling and difficulties with balance in early June and went to the [facility] ER. He was transferred to [facility]. MRI brain on 06/09/17 showed multiple brain metastases. He had palliative RT to the brain with 37.5Gy in 15 fractions and to T2-T5 with 30 Gy in 10 fractions. He was then treated with Keytruda followed by Dabrafenib/trametinib started on 09/19/2017. CT chest/abdomen/pelvis on 11/07/17 showed significant decrease in the size and number of pulmonary nodules and decrease in adenopathy. There were decrease in the size and/or number of lesions within the liver, adrenal glands, mesentery and bone. He developed erectile dysfunction in July and then urinary and stool incontinence for the past two months. MRI of the lumbar spine on 11/24/17 showed bone metastasis at S2 with cortical disruption posteriorly along the S2 vertebra, with increased soft tissue in the epidural space consistent with epidural extension of disease. ALLERGIES Allergen Reactions - Sulfa (Sulfonamide * Rash - Tizanidine GI Upset No past medical history on file. Prior radiation therapy, collagen vascular disease, or inflammatory bowel disease: Yes, previous radiation treatment to the brain and T2-T5 as above. PAST SURGICAL HISTORY Procedure Laterality Date - PAST SURGICAL HISTORY OF 2004 bilateral knee replacement FAMILY HISTORY Problem Relation Age of Onset - Cancer Father esophagus - Cancer Brother bladder, lung Social History Marital status: Spouse name: Years of education: Number of children: Social History Main Topics Smoking status: Never Smoker Smokeless tobacco: Current User Types: Snuff Alcohol use: Yes 45.0 oz/week Cans of Beer (12oz): 30 per week Drug use: No COMPLETE REVIEW OF SYSTEMS: GENERAL: Negative for weight loss, fevers, chills, or night sweats. HEENT: Negative for sudden vision or hearing changes. NECK: Negative for masses in the neck. RESPIRATORY: Negative for cough or shortness of breath. CARDIAC: Negative for chest pain, palpitations, murmurs, or syncopal episodes. GI: see HPI. : see HPI. MUSCULOSKELETAL: Negative for limitations in movement, pain, or swelling. NEURO: Negative for dizziness, headache, weakness or numbness. HEMATOLOGIC: He is on Xarelto for h/o DVT. SKIN: He sees Dr. Mukherjee for skin surveillance exams. PHYSICAL EXAM: VS: BP 120/72 Pulse 88 Temp 36.3 ?C (97.4 ?F) (Temporal Artery) Resp 20 Wt 65.5 kg (144 lb 8 oz) SpO2 99% BMI 20.73 kg/m? KPS: 70 General Appearance: Alert and oriented. No acute distress. HEENT: NCAT. Sclera anicteric. EOMI. Neck: Normal ROM. Chest: No respiratory distress. Lungs clear to auscultation bilaterally. Heart: Regular rate and rhythm. Abdomen: Soft. Nontender. Nondistended. Musculoskeletal: No edema. Normal ROM in extremities. Neuro: No gross focal deficits. Skin: No rashes noted Lymphatics: No palpable cervical or supraclavicular adenopathy. RADIOLOGY/LABORATORY DATA: see HPI ASSESSMENT AND PLAN: 67 year old man with metastatic melanoma with bone metastasis at S2 and epidural disease. He developed urinary and stool incontinence recently. I recommend palliative radiation treatment to L5 to sacrum. I explained the rationale, benefits, alternative management options and potential complications of radiation treatment to the patient and he understands and agrees to proceed. It was explained and understood that other personnel such as radiation therapists, electrical intern, and physicists will participate in planning and delivery of radiation treatment. Permanent tattoo stevenson will be placed to aid with positioning for daily treatment and the patient consented. Patient will have a simulation procedure today. Thank you very much for allowing us to participate in his care. Signed by: Jaziel Collazo MD cc: Jerry Aguirre, CARTON MAKER [address] [place] [address] Akbar Mcarthur DO [address] [facility] [address] Referring Provider: AKBAR MCARTHUR [[id number]] Allergies As of Date: 11/28/2017 Noted Allergy Reaction SULFA (SULFONAMIDE ANTIBIOTICS) 08/25/2011 2 - Rash TIZANIDINE 06/04/2017 8 - GI Upset Date Reviewed: 11/28/2017 Reviewed by: Ellen (Rn) TANYA Enrique - Fully Assessed Reason for Visit: Consult [502] Simulation Request Form [0305] Reason For Visit History Recorded Primary Visit Diagnosis:Brain metastases (HCC) [C79.31] Order(s):dexamethasone (DECADRON) 4 mg tabletTake 1 tablet by mouth twice daily with meals.Disp: 14 tabletRfl: 0 RADIATION TREATMENT PER RADIATION ONCOLOGIST PLAN [[id number]] Order #: [id number]: 1 CT SIM PLANNING RADIATION ONCOLOGY [[id number]] Order #: [id number] Prescriptions as of 11/28/2017 Sig: VITAMIN B COMPLEX TABLET Take 1 tablet by mouth once d* PREDNISONE 10 MG TABLET Take 1 tablet by mouth once d* DABRAFENIB 75 MG CAPSULE Take 2 capsules by mouth twic* TRAMETINIB 2 MG TABLET Take 1 tablet by mouth once d* RIVAROXABAN 20 MG TABLET Take 1 tablet by mouth daily * PROMETHAZINE 25 MG TABLET Take 1 tablet by mouth every * ALBUTEROL SULFATE HFA 90 MCG/* Inhale 2 Puffs as instructed * OMEPRAZOLE 40 MG CAPSULE,MALISSA* Take 1 capsule by mouth once * ACETAMINOPHEN 325 MG TABLET Take 650 mg by mouth every 6 * DEXAMETHASONE 4 MG TABLET Take 1 tablet by mouth twice * RIVAROXABAN 15 MG TABLET Take 1 tablet by mouth twice * Patient not taking: Reported on 10/18/2017 THIAMINE HCL (VITAMIN B1) 100* Take 1 tablet by mouth once d* TRAMADOL 50 MG TABLET EVERY 6 HOURS NEEDED COMPOUNDED PRESCRIPTION Outpatient Physical therapy f* Problem List As Of Date 11/28/2017 Noted Resolved Cord compression (HCC) [G95.20] INVALID FOR* More... Nicotine use disorder, F17.2 [F17.200] INVALID FOR* Brain metastases (HCC) [C79.31] INVALID FOR* Malignant melanoma (HCC) [C43.9] INVALID FOR* Liver metastases (HCC) [C78.7] INVALID FOR* Fall [W19.XXXA] INVALID FOR*08/13/2017 More... Acute deep vein thrombosis (DVT) of femoral vei*INVALID FOR* Visit Notes: >> Ellen Morrow) TANYA Enrique TueNov 28, 2017 2:55 PM Status: Signed Radiation Therapy - Nursing Note (Consult) PATIENT NAME: Delmi Phillips PATIENT November 28, 2017 [facility] FACILITY/LOCATION: [facility] Chief Complaint: consult Reason for visit: Consult. Referring physician: Internal provider Dr. Mcarthur Subjective Data: no c/o Additional Data Do you want to see a Manager Distribution Center? No Are you interested in information about fertility? No Sexual Activity: Male: No Stress Scale: On a scale of 0 to 10, what number best describes how much distress you have experienced in the past week?(0 being no distress and 10 being extreme distress) 2 Social work notified: no SIGNED by: Ellen Enrique RN Prescriptions ordered this encounter Disp Refills Start End DEXAMETHASONE 4 MG TABLET 14 t* 0 11/28/2017 Route: ORAL Sig: Take 1 tablet by mouth twice daily with meals. Encounter Status:Closed by JAZIEL COLLAZO MD on 12/01/17 URINALYSIS WITH Collected: 11/28/2017 Status: F Source: [facility] 1:30 PM [facility] REPOSITORY TYPE CODE TESTS RESULT OUT OF RANGE REFERENCE UNITS LAB UCOL Yellow Color Yellow LAB [facility] Clear Clarity Abnormal Cloudy Alert LAB UGLUC Negative mg/dL Glucose, Urine Negative LAB UBIL Negative Bilirubin, Urine Negative LAB UKET Negative Ketones, Urine Negative LAB [facility] 1.005-1.030 Specific [place], Ur 1.009 LAB UHGB Negative Abnormal Hemoglobin/Blood, 2+ Alert Ur LAB UPH 4.5-8.0 pH 7.0 LAB UPROT Negative mg/dL Protein, Urine Negative LAB UUROB Normal Urobilinogen Normal LAB UNITR Negative Nitrites Negative LAB ULKEST Negative Leukest Negative LAB UCOM Comments SEE COMMENT Result Comment: N/A LAB UMCOM Urine SEE Brown Comment COMMENT Result Comment: N/A LAB UWBC 0-5 /HPF WBC 0-5 LAB URBC 0-3 /HPF Abnormal Alert RBC 11-25 LAB UCAST 0 /LPF Abnormal Alert Cast SEE COMMENT Result Comment: 1-3 Hyaline Cast LAB UCRYS 0 /HPF Abnormal Alert Crystals SEE COMMENT Result Comment: Few Calcium Oxalate Crystal Performed By: #### UAWMIC #### [facility] [address] [place], [place] [address] URINALYSIS WITH Collected: 11/28/2017 Status: F Source: [facility] MICROSCOPIC 1:30 PM [facility] REPOSITORY TYPE CODE TESTS RESULT OUT OF RANGE REFERENCE UNITS LAB UCOL Yellow Abnormal Alert Color Duplicate request Result Comment: Account Credited LAB [facility] Clear Abnormal Alert Clarity Duplicate request Result Comment: Account Credited LAB UGLUC Negative mg/dL Abnormal Glucose, Urine Duplicate Alert request Result Comment: Account Credited LAB UBIL Negative Abnormal Alert Bilirubin, Urine Duplicate request Result Comment: Account Credited LAB UKET Negative Abnormal Alert Ketones, Urine Duplicate request Result Comment: Account Credited LAB [facility] 1.005-1.030 Specific Duplicate [place], Ur request Result Comment: Account Credited LAB UHGB Negative Hemoglobin/Blood,Ur Abnormal Duplicate Alert request Result Comment: Account Credited LAB UPH 4.5-8.0 Duplicate pH request Result Comment: Account Credited LAB UPROT Negative mg/dL Abnormal Protein, Urine Duplicate Alert request Result Comment: Account Credited LAB UUROB Normal Abnormal Urobilinogen Alert Duplicate request Result Comment: Account Credited LAB UNITR Negative Abnormal Alert Nitrites Duplicate request Result Comment: Account Credited LAB ULKEST Negative Abnormal Alert Leukest Duplicate request Result Comment: Account Credited LAB UCOM Comments SEE COMMENT Result Comment: Duplicate request Account Credited LAB UMCOM Urine SEE Brown Comment COMMENT Result Comment: Duplicate request Account Credited LAB RECHEK Recheck Duplicate request Result Comment: Account Credited Performed By: #### UAWMIC #### [facility] [address] [place], [place] [address] Observed: 11/28/2017 Status: F Source: [facility] URINE CULTURE 1:30 PM [facility] REPOSITORY Sp. Request/Comment: - Specimen received in preservative Culture Result - <10,000 CFU/ml Normal urogenital sunil Performed By: #### URCUL #### [facility] [address] [place], [place] [address] Observed: 11/28/2017 Status: F Source: [facility] URINE CULTURE 1:30 PM [facility] REPOSITORY Culture Result - Duplicate request Cancelled Account Credited Performed By: #### URCUL #### [facility] [address] [place], [place] [address] MRI LUMBAR SPINE Observed: 11/24/2017 Status: F Source: [facility] WO/W IVCON 2:05 PM [facility] REPOSITORY * * *Final Report* * * DATE OF EXAM: Nov 24 2017 2:05PM [facility] 0304 - MRI LUMBAR SPINE WO/W IVCON / PROCEDURE REASON: multiple diagnoses * * * * Physician Interpretation * * * * EXAMINATION: MRI LUMBAR SPINE WO/W IVCON CLINICAL HISTORY: Metastatic melanoma with metastases to the liver and brain, now with low back pain TECHNIQUE: Routine lumbosacral spine MR protocol without and with intravenous gadolinium. MQ: [id number] MR Contrast: Dotarem. Contrast Dose: 11ml cc Route of Administration: IV COMPARISON: CT abdomen/pelvis a cystic/18 RESULT: Counting reference: Lumbosacral junction. For the purposes of this report, L4-5 is considered the level of the iliac crest and there are 5 lumbar-type vertebrae. Anatomic Variants: None. Alignment: Grade 1 anterolisthesis L4-5. Bone marrow signal/fracture: Foci of replaced fatty marrow signal in T11, T12, L1, L5, and in the S1 and S2 vertebra with associated increased signal on the inversion recovery sequences consistent with osseous metastatic disease. T12 metastatic lesion is present on the prior study as well as L5 metastatic lesion. The remainder of these are new since the prior study. There is cortical disruption posteriorly along the S2 vertebra, with increased soft tissue in the epidural space consistent with epidural extension of disease, slightly improved compared to the prior study. Slight increase in marrow replacement extending superiorly from S2 into the inferior portion of S1. No new pathological fracture. Conus: The density of the sacral nerve roots. No pathologic enhancement of the cauda equina. Paraspinal soft tissues: Multiple metastases in the liver and spleen partially visualized on the full [id number] haste sequences. Lower thoracic spine: Visualized lower thoracic canal and foramina are patent. T12-L1: Canal and foramina are patent. L1-L2: Congenitally short pedicles with mild diffuse disc bulge with small left-sided synovial cyst results in mild canal stenosis. Mild bilateral neural foraminal narrowing. L2-L3: Congenitally short pedicles with diffuse disc bulge and ligamentous hypertrophy result in mild canal stenosis and mild lateral neural foraminal narrowing. L3-L4: Congenitally short pedicles with diffuse disc bulge, ligamentous and facet hypertrophy result in mild to moderate canal stenosis. Mild bilateral neural foraminal narrowing. L4-L5: Congenitally short pedicles with anterolisthesis, pseudodisc, ligamentous and facet hypertrophy result in severe canal stenosis. Moderate to severe bilateral neural foraminal narrowing. L5-S1: Congenitally short pedicles with disc osteophyte complex, ligamentous and facet hypertrophy result in mild canal stenosis with severe bilateral neural foraminal narrowing. Sacrum and iliac wings: The visualized sacrum and iliac wings are within normal limits. IMPRESSION: Slight decrease in epidural disease associated with S2 metastatic lesion. Increase in superior extent of S2 metastatic lesion into the S1 vertebral body and progression of lumbar osseous metastatic disease. No new pathologic fracture. Congenitally short pedicles with superimposed spondylosis results in multilevel canal and neural foraminal narrowing as detailed. This is most pronounced at L4-5 with moderate to severe canal stenosis. Anatomic Variant: None. L4-5 is considered the level of the iliac crest and assume there are 5 lumbar-type vertebrae. Senior Piping Designer: MERRY Transcribe Date/Time: Nov 24 2017 2:17P Dictated by : PHYLLIS OTERO DO This examination was interpreted and the report reviewed and electronically signed by: ARON RAMOS MD on Nov 24 2017 2:41PM EST [id number] Observed: 11/24/2017 Status: COMPLETED Source: [facility] 1:46 PM [facility] REPOSITORY HNO ID: [id number] Author: Shawna Sanots) Antoine Nash Service: (none) Author Type: Pump Servicer Type: Progress Notes Filed: 11/24/2017 1:46 PM Note Text: Radiology Service Progress Note PATIENT NAME: Delmi Phillips DATE OF SERVICE: November 24, 2017 TIME: 1:46 PM PATIENT IDENTITY VERIFICATION COMPLETED USING TWO (2) METHODS: Patient confirmed name verbally and Date of . PATIENT GENDER DATA: Male PATIENT RELEVANT IMPLANT DATA REVIEWED: Yes CONTRAST INDUCED NEPHROPATHY RISK FACTORS: Patient age > 60 years CREATININE: Creatinine Date Value Ref Range Status 11/07/2017 0.60 0.6 - 1.2 mg/dL Final 10/18/2017 0.66 (L) 0.73 - 1.22 mg/dL Final 09/05/2017 0.66 (L) 0.73 - 1.22 mg/dL Final eGFR-All Other Races Date Value Ref Range Status 11/07/2017 >60 . Final Comment: eGFR (Estimated GFR) Units of measure: mL/min/1.73 meters squared eGFR is derived from the reexpressed MDRD Study equation using the following parameters: serum creatinine, age, gender and race. The creatinine assay has been calibrated to be traceable to IDMS. An eGFR <60 mL/min/1.73m2 for >3 months is consistent with chronic kidney disease. Refer to KDOQI guidelines for clinical interpretation. In patients with unstable renal function, e.g. those with acute kidney injury, the eGFR may not accurately reflect actual GFR. eGFR- Date Value Ref Range Status 11/07/2017 >60 Final P.O.C.T. RESULTS: POC done: Yes, See Lab Tab November 24, 2017 RADIOLOGIST NOTIFIED?: No ALLERGIES: Reviewed and unchanged CONTRAST ALLERGY: NO. PERIPHERAL IV ACCESS: Ambulatory: IV type: A peripheral IV was started in the Left antecubital site with a Angio cath: 22 gauge., Site assessment: Clean,Dry and Intact, Site disposition Discontinued RADIOLOGY DEPARTMENT: MR; Exam(s) Completed: Spine: Lumbar spine SIGNED BY: RT Feng November 24, 2017 1:46 PM [facility] ABS GR + CBC Collected: 11/21/2017 Status: F Source: [facility] 3:48 PM [facility] REPOSITORY TYPE CODE TESTS RESULT OUT OF REFERENCE UNITS RANGE LAB WWBC 3.70-11.00 k/uL [place] WBC 6.41 LAB WRBC 4.20-6.00 m/uL Low [place] RBC 3.44 LAB WHGB 13.0-17.0 g/dL [facility] Hemoglobin 10.5 LAB WHCT 39.0-51.0 % Low [place] Hematocrit 32.9 LAB WMCV 80.0-100.0 fL [facility] MCV 95.6 LAB WMCH 26.0-34.0 pg [place] MCH 30.5 LAB WMCHC 30.5-36.0 g/dL [facility] MCHC 31.9 LAB WRDW 11.5-15.0 % [facility] RDW 14.7 LAB WPLT 150-400 k/uL [place] Platelet Cnt 168 LAB WMPV 9.0-12.7 fL [place] MPV 9.3 Result Comment: Test performed at: [facility], [address] [place] [address]. LAB ABGRAN 1.45-7.50 k/uL Absol Gran 4.83 Count PROGRESS Observed: 11/21/2017 Status: COMPLETED Source: [facility] 3:18 PM [facility] REPOSITORY HNO ID: [id number] Author: Akbar Mcarthur Service: (none) Author Type: Physician Type: Progress Notes Filed: 11/21/2017 3:40 PM Note Text: Diagnosis: 1) Metastatic melanoma. HPI: The patient is a 67-year-old male who has a past medical history significant for alcohol dependence who the day after Thanksgiving stumbled when coming down a set of steps. Following that he noticed progressive pain in the left upper chest. He was seen by his primary care physician and underwent a CT scan of the chest on 05/11/2017. That study demonstrated numerous bilateral areas of pleural-based and parenchymal nodularity measuring 2-7 mm in size. There was no calcification or cavitation noted. Ascending aorta was mildly ectatic and measured at 38 mm. There was mild prominence of the central pulmonary artery. In the high posterior) midline dorsal region was in the approximate T2 area there was a subcutaneous soft tissue mass measuring 34 x 25 mm. This was thought to possibly be a large sebaceous cyst. There was a comminuted fracture with approximate 40% volume loss of what appeared to be T4. This involved the left side and relatively blastic in appearance. The patient also underwent a CT scan of the abdomen and pelvis on 05/25/2017. That study demonstrated multiple hypodense nodules in the liver suggestive of diffuse metastatic disease. There were also several peripheral nodules in the spleen that were hypodense suggestive of metastatic changes well. Bladder was mildly distended. The patient was having progressive lower tissue weakness therefore admitted to [facility] 06/04/2017. MRI of the spine: Cervical spine: Focus of marrow signal abnormality at C4 compatible with bony metastasis. ?No pathologic enhancement in the cervical cord. ?Severe degenerative disc disease in the lower cervical spine with Canal stenosis is worst at C5-C6. Thoracic spine: Multiple areas of abnormal marrow signal in the MID thoracic vertebrae. ?T4 is most affected which shows a 50% pathologic compression fracture with abnormal epidural metastatic soft tissue. ?This results in moderate CORD compression at this level without evidence for cord signal abnormality. No evidence of leptomeningeal disease in the thoracic CORD. Lumbar spine: Bony metastasis at the S2 segment. ?Lumbar vertebrae show no evidence of metastatic disease. ?No evidence of leptomeningeal disease. ?Severe neural foraminal stenoses at right L4-L5 and bilateral L5-S1 due to degenerative disc and facet disease. ?No pathologic enhancement involving conus medullaris or cauda equina. Incidentally noted 1.5 cm enhancing lesion in the right lobe of the liver. ?This is suspicious for an additional metastatic focus. He was discharged but presented to emergency room at [facility] a day later with complaints of progressive weakness of the left arm. He was transferred back to [facility] where he underwent a brain MRI that disclosed at least 8 parenchymal brain metastases. His pain was under good control and his spine was thought to be stable for discharge. Plan was for outpatient radiation. Biopsy sample from the liver which was taken during his first hospitalization returned as metastatic melanoma. Previous therapy: 1) WBRT and palliative radiation T2-T5. 2) Keytruda. Current therapy: 1) Dabrafenib/trametinib. Began 09/19/2017. Presents for ongoing oncologic management. Interim history: Since last seen he began current therapy on 09/19/2017. No symptomatic side effects thus far. His reports his appetite has really been doing wonderfully and is been eating a lot more. However weight continues to decline. He's not had any trouble with nausea or vomiting. No reflux. Bowels have been working. He's had no symptoms of GI bleeding. He hasn't noticed any new or concerning skin lesions. When he was called about instructions on his current medicines on 09/19, his brought up that he was having lower extremity edema. The next day and ultrasound was performed that demonstrated evidence of acute proximal DVT in the common femoral vein as well as in the femoral vein from proximal to mid area on the left side. He was started on Xarelto 15 mg twice a day. ground services instructor was able to get an urgent drug assistance for this. A prescription for the 20 mg tablets was admitted to [facility] several weeks ago. Patient ran out of drug about a week ago. He doesn't yet have the 20 mg tablets. He denies lower extremity swelling and edema at this point but does get some mild ankle edema at night. He denies shortness of breath at rest and with walking. Occasionally he'll have some dyspnea on exertion with going longer distances but this is been a stable symptom. He is no longer having any coughing spells. He denies sputum production, wheezing and hemoptysis. He hasn't had any other unusual bleeding or unexplained bruising. No episodes of fever, night sweats or shaking chills. Energy level is fair. He says his back pain is minimal at this point. He is not feeling it every day. He still has an occasional problem with foot drop on the left side that causes some stumbling but is had no falls in the last several weeks. Physical therapy continues to do home physical therapy. He's been using a walker when he is out in at home often times he doesn't feel need for the walker. PMH, medications and allergies personally reviewed by me today. Any changes documented in appropriate section. ROS: Constitutional: See above. Neuro: Denies DIAZ, vertigo, dizziness. HEENT: No recent change in voice, vision or hearing. Resp: See above. CVS: Denies exertional chest pain, PND, orthopnea. GI: Denies dysgeusia. Denies symptoms of stomatitis. Denies dysphagia and odynophagia. : Denies dysuria or gross hematuria. No symptoms of bladder outlet obstruction. Endo: Denies hot flashes. Denies polyuria and polydipsia. Denies heat and cold intolerance. Musculoskeletal: See above. Derm: Denies rash. Denies jaundice and diffuse pruritis. Heme: See above. Psych: Normal mood. PHYSICAL EXAM: Vitals: Blood pressure 115/78, pulse 86, temperature 36.6 ?C (97.9 ?F), temperature source Temporal Artery, weight 64.9 kg (143 lb). Thin, but well-appearing and in no acute distress. EYES: Sclerae are anicteric bilaterally. ENT: Oral mucosa is unremarkable. There is no sign of thrush or mucositis. NECK: Supple. LYMPHATIC: There is no palpable cervical, supraclavicular, axillary or inguinal adenopathy. RESPIRATORY: Inspiratory breath sounds are of diminished intensity in all springer. No rales, wheezes or rhonchi. CARDIOVASCULAR: Rhythm is regular. Normal intensity S1/S2. There is no gallop or murmur. ABDOMEN: The abdomen is nondistended. No organomegaly. No tenderness. Extremities: No swelling or edema. SKIN: No jaundice or rash. No petechiae. Large sebaceous cyst mid right upper back. NEUROLOGIC: Generalized decreased strength of the legs. DTRs are normal. MUSCULOSKELETAL: Mild generalized muscle wasting. ASSESSMENT/PLAN: (C43.9) Malignant melanoma, unspecified site (HCC) (primary encounter diagnosis) (C78.7) Liver metastases (HCC) (C79.31) Brain metastases (HCC) Assessment: -KPS is 60% -BRAF mutated but not classic V600 mutation. -Tolerating dabrafenib and trametinib very well without any symptomatic side effect. -Discussed with the family that if there is a objective response then it would be expected to occur within the first few weeks to month or 2 in starting drug. Therefore we'll plan first CT scan in a month. Plan: -Lab work CT scan, MRI brain office visit in about a month. -Referral to Dr. Zena Mukherjee for skin surveillance exams. (I82.412) Acute deep vein thrombosis (DVT) of femoral vein of left lower extremity (HCC) Assessment: -Asymptomatic. Plan: -The patient needs anticoagulation. We'll contact assistance [facility] today and if there is any further delay in getting him drug he'll be started on Coumadin. Akbar Mcarthur DO CNOVSP Observed: 11/21/2017 Status: COMPLETED Source: [facility] 3:10 PM [facility] REPOSITORY Visit (SP) Office (JOSSY) DELMI PHILLIPS ([id number]) 1950 M Date Time Provider Department 11/21/17 3:10 PM AKBAR MCARTHUR During your visit today, we recorded the following information about you: Temperature Pulse Blood pressure Weight 97.9 degrees 86/minute 115/78 64.9 kg Akbar Mcarthur DO 11/21/2017 3:40 PM Signed Diagnosis: 1) Metastatic melanoma. HPI: The patient is a 67-year-old male who has a past medical history significant for alcohol dependence who the day after Thanksgiving stumbled when coming down a set of steps. Following that he noticed progressive pain in the left upper chest. He was seen by his primary care physician and underwent a CT scan of the chest on 05/11/2017. That study demonstrated numerous bilateral areas of pleural-based and parenchymal nodularity measuring 2-7 mm in size. There was no calcification or cavitation noted. Ascending aorta was mildly ectatic and measured at 38 mm. There was mild prominence of the central pulmonary artery. In the high posterior) midline dorsal region was in the approximate T2 area there was a subcutaneous soft tissue mass measuring 34 x 25 mm. This was thought to possibly be a large sebaceous cyst. There was a comminuted fracture with approximate 40% volume loss of what appeared to be T4. This involved the left side and relatively blastic in appearance. The patient also underwent a CT scan of the abdomen and pelvis on 05/25/2017. That study demonstrated multiple hypodense nodules in the liver suggestive of diffuse metastatic disease. There were also several peripheral nodules in the spleen that were hypodense suggestive of metastatic changes well. Bladder was mildly distended. The patient was having progressive lower tissue weakness therefore admitted [facility]. MRI of the spine: Cervical spine: Focus of marrow signal abnormality at C4 compatible with bony metastasis. ?No pathologic enhancement in the cervical cord. ?Severe degenerative disc disease in the lower cervical spine with Canal stenosis is worst at C5-C6. Thoracic spine: Multiple areas of abnormal marrow signal in the MID thoracic vertebrae. ?T4 is most affected which shows a 50% pathologic compression fracture with abnormal epidural metastatic soft tissue. ?This results in moderate CORD compression at this level without evidence for cord signal abnormality. No evidence of leptomeningeal disease in the thoracic CORD. Lumbar spine: Bony metastasis at the S2 segment. ?Lumbar vertebrae show no evidence of metastatic disease. ?No evidence of leptomeningeal disease. ?Severe neural foraminal stenoses at right L4-L5 and bilateral L5-S1 due to degenerative disc and facet disease. ?No pathologic enhancement involving conus medullaris or cauda equina. Incidentally noted 1.5 cm enhancing lesion in the right lobe of the liver. ?This is suspicious for an additional metastatic focus. He was discharged but presented to emergency room at [facility] a day later with complaints of progressive weakness of the left arm. He was transferred back to main [facility] where he underwent a brain MRI that disclosed at least 8 parenchymal brain metastases. His pain was under good control and his spine was thought to be stable for discharge. Plan was for outpatient radiation. Biopsy sample from the liver which was taken during his first hospitalization returned as metastatic melanoma. Previous therapy: 1) WBRT and palliative radiation T2-T5. 2) Keytruda. Current therapy: 1) Dabrafenib/trametinib. Began 09/19/2017. Presents for ongoing oncologic management. Interim history: He had developed an number purple spots on his skin last week so Xarelto was held. CBC from last week showed platelet count of 70,000. His only complaint today is he's been having balance urinary incontinence now for 2 months. He did not previously bring this to my intention. He had some mild dysuria last week but that self resolved. No gross hematuria or symptom of GI bleeding. His back pain is under excellent control he says occasionally has a little twinge of pain in the lower left lumbar area. He's been walking around the house without his walker. He completed home physical therapy and was discharged from their services. He is tolerating medication well with no nausea or vomiting. He hasn't had any episodes of fever, shaking chills or night sweats. PMH, medications and allergies personally reviewed by me today. Any changes documented in appropriate section. ROS: Constitutional: See above. Neuro: Denies DIAZ, vertigo, dizziness. HEENT: No recent change in voice, vision or hearing. Resp: See above. CVS: Denies exertional chest pain, PND, orthopnea. GI: Denies dysgeusia. Denies symptoms of stomatitis. Denies dysphagia and odynophagia. : Denies dysuria or gross hematuria. No symptoms of bladder outlet obstruction. Endo: Denies hot flashes. Denies polyuria and polydipsia. Denies heat and cold intolerance. Musculoskeletal: See above. Derm: Denies rash. Denies jaundice and diffuse pruritis. Heme: See above. Psych: Normal mood. PHYSICAL EXAM: Vitals: Blood pressure 115/78, pulse 86, temperature 36.6 ?C (97.9 ?F), temperature source Temporal Artery, weight 64.9 kg (143 lb). Thin, but well-appearing and in no acute distress. EYES: Sclerae are anicteric bilaterally. ENT: Oral mucosa is unremarkable. There is no sign of thrush or mucositis. NECK: Supple. LYMPHATIC: There is no palpable cervical, supraclavicular, axillary or inguinal adenopathy. RESPIRATORY: Inspiratory breath sounds are of diminished intensity in all springer. No rales, wheezes or rhonchi. CARDIOVASCULAR: Rhythm is regular. Normal intensity S1/S2. There is no gallop or murmur. ABDOMEN: The abdomen is nondistended. No organomegaly. No tenderness. Extremities: No swelling or edema. SKIN: No jaundice or rash. No petechiae. Large sebaceous cyst mid right upper back. NEUROLOGIC: Generalized decreased strength of the legs. DTRs are normal. MUSCULOSKELETAL: Mild generalized muscle wasting. ASSESSMENT/PLAN: (C43.9) Malignant melanoma, unspecified site (HCC) (primary encounter diagnosis) (C78.7) Liver metastases (HCC) (C79.31) Brain metastases (HCC) Assessment: -KPS is 60% -BRAF mutated but not classic V600 mutation. -Tolerating dabrafenib and trametinib very well without any symptomatic side effect. -I personally reviewed CT images and again with patient and independently verified and agreed with the radiologist's findings. Impressive response. Plan: -He'll continue to see Dr. Mukherjee on a periodic basis for skin surveillance. -Plan monthly CBC and CMP. -OV in 2 months with plan for repeat CT scans and brain MRI in 4 months. (I82.412) Acute deep vein thrombosis (DVT) of femoral vein of left lower extremity (HCC) Assessment: -Asymptomatic. -Increase in ecchymoses 1 platelet count low on Xarelto. Plan: -Recheck CBC today. If platelet count increased then go back on full strength Xarelto. If still thrombocytopenic resume Xarelto at half dose. (N39.498) Other urinary incontinence (R15.9) Incontinence of feces, unspecified fecal incontinence type Assessment: -He received palliative radiation for spinal metastasis. He is not a longer having back pain. Impressive systemic response to therapy. -Etiology of the incontinence unclear. Plan: -UA and culture. -MRI lumbar spine. -Neurology referral. Akbar Cabrera LyubovDO Akbar DO 11/21/2017 3:40 PM Signed Diagnosis: 1) Metastatic melanoma. HPI: The patient is a 67-year-old male who has a past medical history significant for alcohol dependence who the day after Thanksgiving stumbled when coming down a set of steps. Following that he noticed progressive pain in the left upper chest. He was seen by his primary care physician and underwent a CT scan of the chest on 05/11/2017. That study demonstrated numerous bilateral areas of pleural-based and parenchymal nodularity measuring 2-7 mm in size. There was no calcification or cavitation noted. Ascending aorta was mildly ectatic and measured at 38 mm. There was mild prominence of the central pulmonary artery. In the high posterior) midline dorsal region was in the approximate T2 area there was a subcutaneous soft tissue mass measuring 34 x 25 mm. This was thought to possibly be a large sebaceous cyst. There was a comminuted fracture with approximate 40% volume loss of what appeared to be T4. This involved the left side and relatively blastic in appearance. The patient also underwent a CT scan of the abdomen and pelvis on 05/25/2017. That study demonstrated multiple hypodense nodules in the liver suggestive of diffuse metastatic disease. There were also several peripheral nodules in the spleen that were hypodense suggestive of metastatic changes well. Bladder was mildly distended. The patient was having progressive lower tissue weakness therefore [facility]. MRI of the spine: Cervical spine: Focus of marrow signal abnormality at C4 compatible with bony metastasis. ?No pathologic enhancement in the cervical cord. ?Severe degenerative disc disease in the lower cervical spine with Canal stenosis is worst at C5-C6. Thoracic spine: Multiple areas of abnormal marrow signal in the MID thoracic vertebrae. ?T4 is most affected which shows a 50% pathologic compression fracture with abnormal epidural metastatic soft tissue. ?This results in moderate CORD compression at this level without evidence for cord signal abnormality. No evidence of leptomeningeal disease in the thoracic CORD. Lumbar spine: Bony metastasis at the S2 segment. ?Lumbar vertebrae show no evidence of metastatic disease. ?No evidence of leptomeningeal disease. ?Severe neural foraminal stenoses at right L4-L5 and bilateral L5-S1 due to degenerative disc and facet disease. ?No pathologic enhancement involving conus medullaris or cauda equina. Incidentally noted 1.5 cm enhancing lesion in the right lobe of the liver. ?This is suspicious for an additional metastatic focus. He was discharged but presented to emergency room at [facility] a day later with complaints of progressive weakness of the left arm. He was transferred back to [facility] where he underwent a brain MRI that disclosed at least 8 parenchymal brain metastases. His pain was under good control and his spine was thought to be stable for discharge. Plan was for outpatient radiation. Biopsy sample from the liver which was taken during his first hospitalization returned as metastatic melanoma. Previous therapy: 1) WBRT and palliative radiation T2-T5. 2) Keytruda. Current therapy: 1) Dabrafenib/trametinib. Began 09/19/2017. Presents for ongoing oncologic management. Interim history: Since last seen he began current therapy on 09/19/2017. No symptomatic side effects thus far. His reports his appetite has really been doing wonderfully and is been eating a lot more. However weight continues to decline. He's not had any trouble with nausea or vomiting. No reflux. Bowels have been working. He's had no symptoms of GI bleeding. He hasn't noticed any new or concerning skin lesions. When he was called about instructions on his current medicines on 09/19, his brought up that he was having lower extremity edema. The next day and ultrasound was performed that demonstrated evidence of acute proximal DVT in the common femoral vein as well as in the femoral vein from proximal to mid area on the left side. He was started on Xarelto 15 mg twice a day. ground services instructor was able to get an urgent drug assistance for this. A prescription for the 20 mg tablets was admitted to [facility] several weeks ago. Patient ran out of drug about a week ago. He doesn't yet have the 20 mg tablets. He denies lower extremity swelling and edema at this point but does get some mild ankle edema at night. He denies shortness of breath at rest and with walking. Occasionally he'll have some dyspnea on exertion with going longer distances but this is been a stable symptom. He is no longer having any coughing spells. He denies sputum production, wheezing and hemoptysis. He hasn't had any other unusual bleeding or unexplained bruising. No episodes of fever, night sweats or shaking chills. Energy level is fair. He says his back pain is minimal at this point. He is not feeling it every day. He still has an occasional problem with foot drop on the left side that causes some stumbling but is had no falls in the last several weeks. Physical therapy continues to do home physical therapy. He's been using a walker when he is out in at home often times he doesn't feel need for the walker. PMH, medications and allergies personally reviewed by me today. Any changes documented in appropriate section. ROS: Constitutional: See above. Neuro: Denies DIAZ, vertigo, dizziness. HEENT: No recent change in voice, vision or hearing. Resp: See above. CVS: Denies exertional chest pain, PND, orthopnea. GI: Denies dysgeusia. Denies symptoms of stomatitis. Denies dysphagia and odynophagia. : Denies dysuria or gross hematuria. No symptoms of bladder outlet obstruction. Endo: Denies hot flashes. Denies polyuria and polydipsia. Denies heat and cold intolerance. Musculoskeletal: See above. Derm: Denies rash. Denies jaundice and diffuse pruritis. Heme: See above. Psych: Normal mood. PHYSICAL EXAM: Vitals: Blood pressure 115/78, pulse 86, temperature 36.6 ?C (97.9 ?F), temperature source Temporal Artery, weight 64.9 kg (143 lb). Thin, but well-appearing and in no acute distress. EYES: Sclerae are anicteric bilaterally. ENT: Oral mucosa is unremarkable. There is no sign of thrush or mucositis. NECK: Supple. LYMPHATIC: There is no palpable cervical, supraclavicular, axillary or inguinal adenopathy. RESPIRATORY: Inspiratory breath sounds are of diminished intensity in all springer. No rales, wheezes or rhonchi. CARDIOVASCULAR: Rhythm is regular. Normal intensity S1/S2. There is no gallop or murmur. ABDOMEN: The abdomen is nondistended. No organomegaly. No tenderness. Extremities: No swelling or edema. SKIN: No jaundice or rash. No petechiae. Large sebaceous cyst mid right upper back. NEUROLOGIC: Generalized decreased strength of the legs. DTRs are normal. MUSCULOSKELETAL: Mild generalized muscle wasting. ASSESSMENT/PLAN: (C43.9) Malignant melanoma, unspecified site (HCC) (primary encounter diagnosis) (C78.7) Liver metastases (HCC) (C79.31) Brain metastases (HCC) Assessment: -KPS is 60% -BRAF mutated but not classic V600 mutation. -Tolerating dabrafenib and trametinib very well without any symptomatic side effect. -Discussed with the family that if there is a objective response then it would be expected to occur within the first few weeks to month or 2 in starting drug. Therefore we'll plan first CT scan in a month. Plan: -Lab work CT scan, MRI brain office visit in about a month. -Referral to Dr. Zena Mukherjee for skin surveillance exams. (I82.412) Acute deep vein thrombosis (DVT) of femoral vein of left lower extremity (HCC) Assessment: -Asymptomatic. Plan: -The patient needs anticoagulation. We'll contact assistance [facility] today and if there is any further delay in getting him drug he'll be started on Coumadin. Akbar Mcarthur DO Referring Provider: AKBAR MCARTHUR [[id number]] Allergies As of Date: 11/21/2017 Noted Allergy Reaction SULFA (SULFONAMIDE ANTIBIOTICS) 08/25/2011 2 - Rash TIZANIDINE 06/04/2017 8 - GI Upset Date Reviewed: 11/21/2017 Reviewed by: Jada Blanc - Fully Assessed Reason for Visit: Established Patient [175] Primary Visit Diagnosis:Malignant melanoma, unspecified site (HCC) [C43.9] Other Visit Diagnoses:Brain metastases (HCC) [C79.31] Liver metastases (HCC) [C78.7] Chronic deep vein thrombosis (DVT) of femoral vein of left lower extremity (HCC) [I82.512] Acute bilateral low back pain without sciatica [M54.5] Other urinary incontinence [N39.498] Incontinence of feces, unspecified fecal incontinence type [R15.9] Order(s):WENDY ABS GRAN CT + CBC [SQWAGCBC] Order #: [id number] FUTURE MRI LUMBAR SPINE WO/W IVCON [[id number]] Order #: [id number] FUTURE iv contrast (will be provided with radiology test)MRI LSP Inject, intravenously, once for 1 dose. No IV access, insert saline lock prior to the beginning of sedation, infusion, injection of imaging exam. Discontinue saline lock post exam. If Pt. has a central line or IVAD, may access for administration according to line specific nursing protocol. Once exam is complete flush line and de- access according to line specific nursing protocol in the MR contrast administration guidelines link.Disp: 1 EachRfl: 0 URINALYSIS WITH MICROSCOPIC [SQUAWMIC] Order #: [id number] URINE CULTURE [SQURCUL] Order #: [id number] Follow-up and Disposition History Recorded Prescriptions as of 11/21/2017 Sig: VITAMIN B COMPLEX TABLET Take 1 tablet by mouth once d* PREDNISONE 10 MG TABLET Take 1 tablet by mouth once d* DABRAFENIB 75 MG CAPSULE Take 2 capsules by mouth twic* TRAMETINIB 2 MG TABLET Take 1 tablet by mouth once d* RIVAROXABAN 20 MG TABLET Take 1 tablet by mouth daily * PROMETHAZINE 25 MG TABLET Take 1 tablet by mouth every * ALBUTEROL SULFATE HFA 90 MCG/* Inhale 2 Puffs as instructed * OMEPRAZOLE 40 MG CAPSULE,MALISSA* Take 1 capsule by mouth once * TRAMADOL 50 MG TABLET EVERY 6 HOURS NEEDED ACETAMINOPHEN 325 MG TABLET Take 650 mg by mouth every 6 * IV CONTRAST (RADIOLOGY PROCED* MRI LSP Inject, intravenousl* RIVAROXABAN 15 MG TABLET Take 1 tablet by mouth twice * Patient not taking: Reported on 10/18/2017 THIAMINE HCL (VITAMIN B1) 100* Take 1 tablet by mouth once d* COMPOUNDED PRESCRIPTION Outpatient Physical therapy f* Medication notes this encounter THIAMINE HCL (VITAMIN B1) 100 MG TABLET >> Jada Blanc MA 11/21/2017 3:13 PM >> JADA BLANC MA TueNov 21, 2017 3:13 PM No longer taking. Problem List As Of Date 11/21/2017 Noted Resolved Cord compression (HCC) [G95.20] INVALID FOR* More... Nicotine use disorder, F17.2 [F17.200] INVALID FOR* Brain metastases (HCC) [C79.31] INVALID FOR* Malignant melanoma (HCC) [C43.9] INVALID FOR* Liver metastases (HCC) [C78.7] INVALID FOR* Fall [W19.XXXA] INVALID FOR*08/13/2017 More... Acute deep vein thrombosis (DVT) of femoral vei*INVALID FOR* Encounter Status:Closed by AKBAR MCARTHUR DO on 11/21/17 PROGRESS Observed: 11/21/2017 Status: COMPLETED Source: [place] 3:07 PM [facility] REPOSITORY HNO ID: [id number] Author: Akbar Mcarthur Service: (none) Author Type: Physician Type: Progress Notes Filed: 11/21/2017 3:40 PM Note Text: Diagnosis: 1) Metastatic melanoma. HPI: The patient is a 67-year-old male who has a past medical history significant for alcohol dependence who the day after Thanksgiving stumbled when coming down a set of steps. Following that he noticed progressive pain in the left upper chest. He was seen by his primary care physician and underwent a CT scan of the chest on 05/11/2017. That study demonstrated numerous bilateral areas of pleural-based and parenchymal nodularity measuring 2-7 mm in size. There was no calcification or cavitation noted. Ascending aorta was mildly ectatic and measured at 38 mm. There was mild prominence of the central pulmonary artery. In the high posterior) midline dorsal region was in the approximate T2 area there was a subcutaneous soft tissue mass measuring 34 x 25 mm. This was thought to possibly be a large sebaceous cyst. There was a comminuted fracture with approximate 40% volume loss of what appeared to be T4. This involved the left side and relatively blastic in appearance. The patient also underwent a CT scan of the abdomen and pelvis on 05/25/2017. That study demonstrated multiple hypodense nodules in the liver suggestive of diffuse metastatic disease. There were also several peripheral nodules in the spleen that were hypodense suggestive of metastatic changes well. Bladder was mildly distended. The patient was having progressive lower tissue weakness therefore admitted to [facility] 06/04/2017. MRI of the spine: Cervical spine: Focus of marrow signal abnormality at C4 compatible with bony metastasis. ?No pathologic enhancement in the cervical cord. ?Severe degenerative disc disease in the lower cervical spine with Canal stenosis is worst at C5-C6. Thoracic spine: Multiple areas of abnormal marrow signal in the MID thoracic vertebrae. ?T4 is most affected which shows a 50% pathologic compression fracture with abnormal epidural metastatic soft tissue. ?This results in moderate CORD compression at this level without evidence for cord signal abnormality. No evidence of leptomeningeal disease in the thoracic CORD. Lumbar spine: Bony metastasis at the S2 segment. ?Lumbar vertebrae show no evidence of metastatic disease. ?No evidence of leptomeningeal disease. ?Severe neural foraminal stenoses at right L4-L5 and bilateral L5-S1 due to degenerative disc and facet disease. ?No pathologic enhancement involving conus medullaris or cauda equina. Incidentally noted 1.5 cm enhancing lesion in the right lobe of the liver. ?This is suspicious for an additional metastatic focus. He was discharged but presented to emergency room at [facility] a day later with complaints of progressive weakness of the left arm. He was transferred back to [facility] where he underwent a brain MRI that disclosed at least 8 parenchymal brain metastases. His pain was under good control and his spine was thought to be stable for discharge. Plan was for outpatient radiation. Biopsy sample from the liver which was taken during his first hospitalization returned as metastatic melanoma. Previous therapy: 1) WBRT and palliative radiation T2-T5. 2) Keytruda. Current therapy: 1) Dabrafenib/trametinib. Began 09/19/2017. Presents for ongoing oncologic management. Interim history: He had developed an number purple spots on his skin last week so Xarelto was held. CBC from last week showed platelet count of 70,000. His only complaint today is he's been having balance urinary incontinence now for 2 months. He did not previously bring this to my intention. He had some mild dysuria last week but that self resolved. No gross hematuria or symptom of GI bleeding. His back pain is under excellent control he says occasionally has a little twinge of pain in the lower left lumbar area. He's been walking around the house without his walker. He completed home physical therapy and was discharged from their services. He is tolerating medication well with no nausea or vomiting. He hasn't had any episodes of fever, shaking chills or night sweats. PMH, medications and allergies personally reviewed by me today. Any changes documented in appropriate section. ROS: Constitutional: See above. Neuro: Denies DIAZ, vertigo, dizziness. HEENT: No recent change in voice, vision or hearing. Resp: See above. CVS: Denies exertional chest pain, PND, orthopnea. GI: Denies dysgeusia. Denies symptoms of stomatitis. Denies dysphagia and odynophagia. : Denies dysuria or gross hematuria. No symptoms of bladder outlet obstruction. Endo: Denies hot flashes. Denies polyuria and polydipsia. Denies heat and cold intolerance. Musculoskeletal: See above. Derm: Denies rash. Denies jaundice and diffuse pruritis. Heme: See above. Psych: Normal mood. PHYSICAL EXAM: Vitals: Blood pressure 115/78, pulse 86, temperature 36.6 ?C (97.9 ?F), temperature source Temporal Artery, weight 64.9 kg (143 lb). Thin, but well-appearing and in no acute distress. EYES: Sclerae are anicteric bilaterally. ENT: Oral mucosa is unremarkable. There is no sign of thrush or mucositis. NECK: Supple. LYMPHATIC: There is no palpable cervical, supraclavicular, axillary or inguinal adenopathy. RESPIRATORY: Inspiratory breath sounds are of diminished intensity in all springer. No rales, wheezes or rhonchi. CARDIOVASCULAR: Rhythm is regular. Normal intensity S1/S2. There is no gallop or murmur. ABDOMEN: The abdomen is nondistended. No organomegaly. No tenderness. Extremities: No swelling or edema. SKIN: No jaundice or rash. No petechiae. Large sebaceous cyst mid right upper back. NEUROLOGIC: Generalized decreased strength of the legs. DTRs are normal. MUSCULOSKELETAL: Mild generalized muscle wasting. ASSESSMENT/PLAN: (C43.9) Malignant melanoma, unspecified site (HCC) (primary encounter diagnosis) (C78.7) Liver metastases (HCC) (C79.31) Brain metastases (HCC) Assessment: -KPS is 60% -BRAF mutated but not classic V600 mutation. -Tolerating dabrafenib and trametinib very well without any symptomatic side effect. -I personally reviewed CT images and again with patient and independently verified and agreed with the radiologist's findings. Impressive response. Plan: -He'll continue to see Dr. Mukherjee on a periodic basis for skin surveillance. -Plan monthly CBC and CMP. -OV in 2 months with plan for repeat CT scans and brain MRI in 4 months. (I82.412) Acute deep vein thrombosis (DVT) of femoral vein of left lower extremity (HCC) Assessment: -Asymptomatic. -Increase in ecchymoses 1 platelet count low on Xarelto. Plan: -Recheck CBC today. If platelet count increased then go back on full strength Xarelto. If still thrombocytopenic resume Xarelto at half dose. (N39.498) Other urinary incontinence (R15.9) Incontinence of feces, unspecified fecal incontinence type Assessment: -He received palliative radiation for spinal metastasis. He is not a longer having back pain. Impressive systemic response to therapy. -Etiology of the incontinence unclear. Plan: -UA and culture. -MRI lumbar spine. -Neurology referral. Akbar Cabrera Lyubov, DO CT ABD/PEL W IVCON Observed: 11/07/2017 Status: F Source: [place] 3:18 PM [facility] [place] REPOSITORY * * *Final Report* * * DATE OF EXAM: Nov 07 2017 3:18PM [facility] 0530 - CT ABD/PEL W IVCON / PROCEDURE REASON: multiple diagnoses * * * * Physician Interpretation * * * * HISTORY: Melanoma TECHNIQUE: Contrast 1: [address] Contrast 2: 50 50ML Omnipaque [address] Ionizing Radiation: CT Dose Length Product (DLP): 513 mG*y cm CT Dose Reduction Employed: Automated exposure control (AEC) RESULT: Scans through the abdomen and pelvis are performed following oral and intravenous contrast administration. Comparison is made with 09/05/2017. Scans through the chest are dictated separately. Numerous right and left hepatic lobe masses are again noted. Left hepatic lobe mass of 3 x 3.1 cm on image 27 was previously 3.9 x 3.8 cm at this level. Lateral left hepatic lobe lesion on image 27 of 2.6 x 2.1 cm was previously 3.4 x 2.5 cm. Mass within the dome of the liver on image 22 of 2.6 x 2.9 cm was previously 3.3 x 3.4 cm at this level. Multiple additional masses have decreased in size. Mass within the spleen superiorly on image 16 of 3 x 2.5 cm was previously 4 x 3.2 cm at this level. Other masses within the spleen have decreased in size. The adrenal nodules bilaterally have decreased. No developing renal abnormality. The pancreas is unremarkable. Several soft tissue nodules seen within the mesentery previously, have decreased in size. Nodule on image 81 measures 2.1 x 1.7 cm. Previously 3.5 x 2.4 cm at this level. The involvement of the wall of the small bowel is not appreciated on the current study. No developing adenopathy within the abdomen or pelvis. Lesions in the urinary bladder have developed calcific rim. Not significantly changed in size. Bony metastatic disease in the sacrum appears grossly mildly improved, with decrease in the soft tissue component. IMPRESSION: Improvement as described above in the abdomen and pelvis. Decrease in the size and/or number of lesions within the liver, adrenal glands, mesentery and bone . Senior Piping Designer: MERRY Transcribe Date/Time: Nov 07 2017 4:47P Dictated by : DESHAUN UNDERWOOD MD This examination was interpreted and the report reviewed and electronically signed by: DESHAUN UNDERWOOD MD on Nov 07 2017 5:05PM EST [id number] CT CHEST W IVCON Observed: 11/07/2017 Status: F Source: [place] 3:18 PM [facility] REPOSITORY * * *Final Report* * * DATE OF EXAM: Nov 07 2017 3:18PM [facility] 0539 - CT CHEST W IVCON / PROCEDURE REASON: multiple diagnoses * * * * Physician Interpretation * * * * HISTORY: Melanoma TECHNIQUE: Contrast 1: [address] Ionizing Radiation: CT Dose Length Product (DLP): 513 mG*y cm CT Dose Reduction Employed: Automated exposure control (AEC) RESULT: Scans through the chest were performed following the administration of contrast as a bolus through the mediastinum. Comparison is made with 09/05/2017 Scans through the abdomen and pelvis are dictated separately. Metastatic involvement and compression deformity involving T4 and T7, again noted, with slight increase in the degree of compression at each site. No new fractures. Previously described chest wall lesion is seen on image 113 on the left. Minimally decreased in size. Again seen are too numerous to count nodules throughout both lungs. These have decreased in size and number, however. Left lower lobe nodule on image 70 of 1.8 x 1.3 cm ,was previously 2.3 x 1.6 cm. Left upper lobe nodule of 0.9 x 0.6 cm on image 41 ,was previously 1.6 x 1.3 cm. Right lower lobe nodule medially on image 68 of 1.1 x 1.1 cm was previously 1.4 x 1.4 cm. Many nodules have decreased in size and/or completely resolved. No developing pleural or pericardial fluid. Significant improvement/almost complete resolution of right hilar adenopathy. No developing mediastinal, hilar or axillary nodes. IMPRESSION: Significant decrease in the size and number of pulmonary nodules. Decrease in adenopathy. Compression fractures of T4 and T7 have slightly worsened. Senior Piping Designer: MERRY Transcribe Date/Time: Nov 07 2017 5:06P Dictated by : DESHAUN UNDERWOOD MD This examination was interpreted and the report reviewed and electronically signed by: DESHAUN UNDERWOOD MD on Nov 07 2017 5:14PM EST [id number] PROGRESS Observed: 11/07/2017 Status: COMPLETED Source: [place] 2:18 PM [facility] [place] REPOSITORY HNO ID: [id number] Author: Gladys Barrera) [place] Service: (none) Author Type: [employer] Station Operator Type: Progress Notes Filed: 11/07/2017 2:20 PM Note Text: SOCIAL WORK FOLLOW UP NOTE: [facility] Date of service: November 07, 2017 Delmi Phillips is being seen for a follow up social work visit. Today's visit includes: spouse TOPICS ADDRESSED: Finances; Patient's spouse met with SPIKE on this day to discuss issue with [place] patient assistance. Patient's spouse reports she spoke with her local [facility] pharmacy about this assistance program and they wanted the PCN, BIN, etc. Information to bill them for this medication. They have been giving patient two pills at a time in the meantime until this gets resolved. SPIKE explained typically [facility] would use their own specialty pharmacy that would mail it directly to patient, so going through a local pharmacy is new. Pharmacy told patient he would need to call [employer] to get this information, but patient's spouse says she is on hold for over an hour each time she calls ([employer] website states they are having phone issues). SPIKE encouraged patient's spouse to see if pharmacy is able to get this information, she is agreeable. She will call if this is unable to happen. PLAN: Continue follow up as needed F/U APPOINTMENT: JAYLENE Mead HEPATIC FUNCTN PANEL Collected: 11/07/2017 Status: F Source: [place] 1:37 PM [facility] [place] REPOSITORY TYPE CODE TESTS RESULT OUT OF REFERENCE UNITS RANGE LAB ALB 3.9-4.9 g/dL Low Albumin 2.2 LAB TBIL 0.2-1.3 mg/dL Bilirubin, Total 0.3 LAB CBIL <0.2 mg/dL Bilirubin,Conjuga <0.2 louise LAB ALKP 36-108 U/L Alkaline High Phosphatase 167 LAB AST 14-40 U/L AST High 70 LAB ALT 10-54 U/L ALT 48 LAB TP 6.3-8.0 g/dL Low Protein, Total 4.7 Performed By: #### HFP, PHOS, LD6 #### [facility] [address] [id number] PHOSPHORUS Collected: 11/07/2017 Status: F Source: [place] 1:37 PM [facility] [place] REPOSITORY TYPE CODE TESTS RESULT OUT OF REFERENCE UNITS RANGE LAB PHOS 2.7-4.8 mg/dL Phosphorus 2.8 Performed By: #### HFP, PHOS, LD6 #### [facility] [address] [id number] LD Collected: 11/07/2017 Status: F Source: [facility] 1:37 PM [facility] [place] REPOSITORY TYPE CODE TESTS RESULT OUT OF RANGE REFERENCE UNITS LAB LD 135-225 U/L High LD 323 Performed By: #### HANNY, PHOS, LD6 #### [address] [place] [id number] WENDY ABS GR + CBC Collected: 11/07/2017 Status: F Source: [place] 1:36 PM [facility] [place] REPOSITORY TYPE CODE TESTS RESULT OUT OF REFERENCE UNITS RANGE LAB WWBC 3.70-11.00 k/uL Wendy WBC 10.04 LAB WRBC 4.20-6.00 m/uL Low [place] RBC 3.12 LAB WHGB 13.0-17.0 g/dL Low [place] Hemoglobin 9.5 LAB WHCT 39.0-51.0 % Low [place] Hematocrit 30.2 LAB WMCV 80.0-100.0 fL [place] MCV 96.8 LAB WMCH 26.0-34.0 pg Wendy MCH 30.4 LAB WMCHC 30.5-36.0 g/dL [place] MCHC 31.5 LAB WRDW 11.5-15.0 % [place] High RDW 15.6 LAB WPLT 150-400 k/uL Low Wendy Platelet Cnt 70 LAB WMPV 9.0-12.7 fL Wendy MPV 10.8 Result Comment: Test performed at: [address] [place] [address]. LAB ABGRAN 1.45-7.50 k/uL High Absol 8.23 Gran Count BMP PLUS FHC Collected: 11/07/2017 Status: F Source: [place] 1:36 PM [facility] REPOSITORY TYPE CODE TESTS RESULT OUT OF REFERENCE UNITS RANGE LAB NA 128-145 mmol/L Sodium 132 LAB K 3.6-5.1 mmol/L Potassium 3.8 LAB CL 98-108 mmol/L Chloride 105 LAB CO2 18-33 mmol/L CO2 24 LAB CRET 0.6-1.2 mg/dL Creatinine 0.60 LAB BUN 7-22 mg/dL Low BUN 6 LAB GLU 73-118 mg/dL Glucose 114 LAB CA 8.0-10.3 mg/dL Calcium, Total 8.0 LAB MG 1.6-2.3 mg/dL Magnesium 1.6 LAB AGAP 9-18 mmol/L Low Anion Gap 3 LAB GFRAA eGFR- >60 Amer. LAB GFRNAA . eGFR-All Other Races >60 Result Comment: eGFR (Estimated GFR) Units of measure: mL/min/1.73 meters squared eGFR is derived from the reexpressed MDRD Study equation using the following parameters: serum creatinine, age, gender and race. The creatinine assay has been calibrated to be traceable to IDMS. An eGFR <60 mL/min/1.73m2 for >3 months is consistent with chronic kidney disease. Refer to KDOQI guidelines for clinical interpretation. In patients with unstable renal function, e.g. those with acute kidney injury, the eGFR may not accurately reflect actual GFR. CNSW Observed: 11/07/2017 Status: COMPLETED Source: [place] 12:00 AM [facility] REPOSITORY Social Work (JOSSY) DELMI PHILLIPS ([id number]) 1950 M Date Time Provider Department 11/07/17 GLADYS PEREZ (SW) During your visit today, we recorded the following information about you: JAYLENE Zavala 11/07/2017 2:20 PM Signed SOCIAL WORK FOLLOW UP NOTE: [facility] Date of service: November 07, 2017 Delmi Phillips is being seen for a follow up social work visit. Today's visit includes: spouse TOPICS ADDRESSED: Finances; Patient's spouse met with SPIKE on this day to discuss issue with [place] patient assistance. Patient's spouse reports she spoke with her local [facility] pharmacy about this assistance program and they wanted the PCN, BIN, etc. Information to bill them for this medication. They have been giving patient two pills at a time in the meantime until this gets resolved. SPIKE explained typically JD would use their own specialty pharmacy that would mail it directly to patient, so going through a local pharmacy is new. Pharmacy told patient he would need to call [employer] to get this information, but patient's spouse says she is on hold for over an hour each time she calls ([employer] website states they are having phone issues). SPIKE encouraged patient's spouse to see if pharmacy is able to get this information, she is agreeable. She will call [employer] if this is unable to happen. PLAN: Continue follow up as needed F/U APPOINTMENT: JAYLENE Mead Allergies As of Date: 11/07/2017 Noted Allergy Reaction SULFA (SULFONAMIDE ANTIBIOTICS) 08/25/2011 2 - Rash TIZANIDINE 06/04/2017 8 - GI Upset Date Reviewed: 11/02/2017 Reviewed by: Adilene Elder Ct - Fully Assessed Reason for Visit: Social Work Services [507] Prescriptions as of 11/07/2017 Sig: DABRAFENIB 75 MG CAPSULE Take 2 capsules by mouth twic* TRAMETINIB 2 MG TABLET Take 1 tablet by mouth once d* RIVAROXABAN 20 MG TABLET Take 1 tablet by mouth daily * PROMETHAZINE 25 MG TABLET Take 1 tablet by mouth every * RIVAROXABAN 15 MG TABLET Take 1 tablet by mouth twice * Patient not taking: Reported on 10/18/2017 ALBUTEROL SULFATE HFA 90 MCG/* Inhale 2 Puffs as instructed * THIAMINE HCL (VITAMIN B1) 100* Take 1 tablet by mouth once d* PREDNISONE 10 MG TABLET Take 1 tablet by mouth once d* OMEPRAZOLE 40 MG CAPSULE,MALISSA* Take 1 capsule by mouth once * TRAMADOL 50 MG TABLET EVERY 6 HOURS NEEDED COMPOUNDED PRESCRIPTION Outpatient Physical therapy f* ACETAMINOPHEN 325 MG TABLET Take 650 mg by mouth every 6 * Problem List As Of Date 11/07/2017 Noted Resolved Cord compression (HCC) [G95.20] INVALID FOR* More... Nicotine use disorder, F17.2 [F17.200] INVALID FOR* Brain metastases (HCC) [C79.31] INVALID FOR* Malignant melanoma (HCC) [C43.9] INVALID FOR* Liver metastases (HCC) [C78.7] INVALID FOR* Fall [W19.XXXA] INVALID FOR*08/13/2017 More... Acute deep vein thrombosis (DVT) of femoral vei*INVALID FOR* Encounter Status:Closed by GLADYS PEREZ on 11/07/17 PROGRESS Observed: 10/19/2017 Status: COMPLETED Source: [place] 4:02 PM [facility] REPOSITORY HNO ID: [id number] Author: Gladys (Spike) Duke Service: (none) Author Type: [employer] Operator Type: Progress Notes Filed: 10/19/2017 4:04 PM Note Text: SOCIAL WORK FOLLOW UP NOTE: [facility] Date of service: October 19, 2017 Delmi Phillips is being seen for a follow up social work visit. Today's visit includes: spouse and Rashad AND Rashad customer engagement representative TOPICS ADDRESSED: Finances; SPIKE called MAIK to get an update on status of application. SPIKE was informed that application will be reviewed and a decision will be communicated to patient either later today or tomorrow. SPIKE called patient and spoke to his spouse, Radha to relay this information. No other needs were identified. Patient's Mekenist will be expedited to him tonight. PLAN: Continue follow up as needed F/U APPOINTMENT: JAYLENE Mead Observed: 10/19/2017 Status: COMPLETED Source: [place] 12:00 AM [facility] REPOSITORY Social Work (HEMAWS) DELMI PHILLIPS ([id number]) 1950 M Date Time Provider Department 10/19/17 GLADYS PEREZ (SPIKE) JOSSY During your visit today, we recorded the following information about you: JAYLENE Zavala 10/19/2017 4:04 PM Signed SOCIAL WORK FOLLOW UP NOTE: [facility] CENTER Date of service: October 19, 2017 Delmi Phillips is being seen for a follow up social work visit. Today's visit includes: spouse and Rashad AND Rashad customer engagement representative TOPICS ADDRESSED: Finances; SPIKE called MAIK to get an update on status of application. SPIKE was informed that application will be reviewed and a decision will be communicated to patient either later today or tomorrow. SPIKE called patient and spoke to his spouse, Radha to relay this information. No other needs were identified. Patient's Mekenist will be expedited to him tonight. PLAN: Continue follow up as needed F/U APPOINTMENT: PRN JAYLENE Zavala Allergies As of Date: 10/19/2017 Noted Allergy Reaction SULFA (SULFONAMIDE ANTIBIOTICS) 08/25/2011 2 - Rash TIZANIDINE 06/04/2017 8 - GI Upset Date Reviewed: 10/18/2017 Reviewed by: Beverly Rice LPN - Fully Assessed Reason for Visit: Social Work Services [[id number]] Prescriptions as of 10/19/2017 Sig: IV CONTRAST (RADIOLOGY PROCED* CT Chest ABD/PEL-Inject, intr* ENTERIC CONTRAST (RADIOLOGY P* For CT CHESTABD/PEL W IVCON R* IV CONTRAST (RADIOLOGY PROCED* MRI Brain Inject, intravenous* DABRAFENIB 75 MG CAPSULE Take 2 capsules by mouth twic* TRAMETINIB 2 MG TABLET Take 1 tablet by mouth once d* RIVAROXABAN 20 MG TABLET Take 1 tablet by mouth daily * PROMETHAZINE 25 MG TABLET Take 1 tablet by mouth every * RIVAROXABAN 15 MG TABLET Take 1 tablet by mouth twice * Patient not taking: Reported on 10/18/2017 ALBUTEROL SULFATE HFA 90 MCG/* Inhale 2 Puffs as instructed * THIAMINE HCL (VITAMIN B1) 100* Take 1 tablet by mouth once d* PREDNISONE 10 MG TABLET Take 1 tablet by mouth once d* OMEPRAZOLE 40 MG CAPSULE,MALISSA* Take 1 capsule by mouth once * TRAMADOL 50 MG TABLET EVERY 6 HOURS NEEDED COMPOUNDED PRESCRIPTION Outpatient Physical therapy f* ACETAMINOPHEN 325 MG TABLET Take 650 mg by mouth every 6 * Problem List As Of Date 10/19/2017 Noted Resolved Cord compression (HCC) [G95.20] INVALID FOR* More... Nicotine use disorder, F17.2 [F17.200] INVALID FOR* Brain metastases (HCC) [C79.31] INVALID FOR* Malignant melanoma (HCC) [C43.9] INVALID FOR* Liver metastases (HCC) [C78.7] INVALID FOR* Fall [W19.XXXA] INVALID FOR*08/13/2017 More... Acute deep vein thrombosis (DVT) of femoral vei*INVALID FOR* Encounter Status:Closed by GLADYS PEREZ on 10/19/17 PROGRESS Observed: 10/18/2017 Status: COMPLETED Source: [place] 11:55 AM [facility] REPOSITORY HNO ID: [id number] Author: Akbar Mcarthur Service: (none) Author Type: Physician Type: Progress Notes Filed: 10/18/2017 12:36 PM Note Text: Diagnosis: 1) Metastatic melanoma. HPI: The patient is a 67-year-old male who has a past medical history significant for alcohol dependence who the day after [place] stumbled when coming down a set of steps. Following that he noticed progressive pain in the left upper chest. He was seen by his primary care physician and underwent a CT scan of the chest on 05/11/2017. That study demonstrated numerous bilateral areas of pleural-based and parenchymal nodularity measuring 2-7 mm in size. There was no calcification or cavitation noted. Ascending aorta was mildly ectatic and measured at 38 mm. There was mild prominence of the central pulmonary artery. In the high posterior) midline dorsal region was in the approximate T2 area there was a subcutaneous soft tissue mass measuring 34 x 25 mm. This was thought to possibly be a large sebaceous cyst. There was a comminuted fracture with approximate 40% volume loss of what appeared to be T4. This involved the left side and relatively blastic in appearance. The patient also underwent a CT scan of the abdomen and pelvis on 05/25/2017. That study demonstrated multiple hypodense nodules in the liver suggestive of diffuse metastatic disease. There were also several peripheral nodules in the spleen that were hypodense suggestive of metastatic changes well. Bladder was mildly distended. The patient was having progressive lower tissue weakness therefore admitted to [facility] 06/04/2017. MRI of the spine: Cervical spine: Focus of marrow signal abnormality at C4 compatible with bony metastasis. ?No pathologic enhancement in the cervical cord. ?Severe degenerative disc disease in the lower cervical spine with Canal stenosis is worst at C5-C6. Thoracic spine: Multiple areas of abnormal marrow signal in the MID thoracic vertebrae. ?T4 is most affected which shows a 50% pathologic compression fracture with abnormal epidural metastatic soft tissue. ?This results in moderate CORD compression at this level without evidence for cord signal abnormality. No evidence of leptomeningeal disease in the thoracic CORD. Lumbar spine: Bony metastasis at the S2 segment. ?Lumbar vertebrae show no evidence of metastatic disease. ?No evidence of leptomeningeal disease. ?Severe neural foraminal stenoses at right L4-L5 and bilateral L5-S1 due to degenerative disc and facet disease. ?No pathologic enhancement involving conus medullaris or cauda equina. Incidentally noted 1.5 cm enhancing lesion in the right lobe of the liver. ?This is suspicious for an additional metastatic focus. He was discharged but presented to emergency room at [facility] a day later with complaints of progressive weakness of the left arm. He was transferred back to [facility] where he underwent a brain MRI that disclosed at least 8 parenchymal brain metastases. His pain was under good control and his spine was thought to be stable for discharge. Plan was for outpatient radiation. Biopsy sample from the liver which was taken during his first hospitalization returned as metastatic melanoma. Previous therapy: 1) WBRT and palliative radiation T2-T5. 2) Keytruda. Current therapy: 1) Dabrafenib/trametinib. Began 09/19/2017. Presents for ongoing oncologic management. Interim history: Since last seen he began current therapy on 09/19/2017. No symptomatic side effects thus far. His reports his appetite has really been doing wonderfully and is been eating a lot more. However weight continues to decline. He's not had any trouble with nausea or vomiting. No reflux. Bowels have been working. He's had no symptoms of GI bleeding. He hasn't noticed any new or concerning skin lesions. When he was called about instructions on his current medicines on 09/19, his brought up that he was having lower extremity edema. The next day and ultrasound was performed that demonstrated evidence of acute proximal DVT in the common femoral vein as well as in the femoral vein from proximal to mid area on the left side. He was started on Xarelto 15 mg twice a day. ground services instructor was able to get an urgent drug assistance for this. A prescription for the 20 mg tablets was admitted to [facility] several weeks ago. Patient ran out of drug about a week ago. He doesn't yet have the 20 mg tablets. He denies lower extremity swelling and edema at this point but does get some mild ankle edema at night. He denies shortness of breath at rest and with walking. Occasionally he'll have some dyspnea on exertion with going longer distances but this is been a stable symptom. He is no longer having any coughing spells. He denies sputum production, wheezing and hemoptysis. He hasn't had any other unusual bleeding or unexplained bruising. No episodes of fever, night sweats or shaking chills. Energy level is fair. He says his back pain is minimal at this point. He is not feeling it every day. He still has an occasional problem with foot drop on the left side that causes some stumbling but is had no falls in the last several weeks. Physical therapy continues to do home physical therapy. He's been using a walker when he is out in at home often times he doesn't feel need for the walker. PMH, medications and allergies personally reviewed by me today. Any changes documented in appropriate section. ROS: Constitutional: See above. Neuro: Denies DIAZ, vertigo, dizziness. HEENT: No recent change in voice, vision or hearing. Resp: See above. CVS: Denies exertional chest pain, PND, orthopnea. GI: Denies dysgeusia. Denies symptoms of stomatitis. Denies dysphagia and odynophagia. : Denies dysuria or gross hematuria. No symptoms of bladder outlet obstruction. Endo: Denies hot flashes. Denies polyuria and polydipsia. Denies heat and cold intolerance. Musculoskeletal: See above. Derm: Denies rash. Denies jaundice and diffuse pruritis. Heme: See above. Psych: Normal mood. PHYSICAL EXAM: Vitals: Blood pressure 102/75, pulse 95, temperature 36.7 ?C (98 ?F), temperature source Temporal Artery, weight 64 kg (141 lb). Thin, but well-appearing and in no acute distress. EYES: Sclerae are anicteric bilaterally. ENT: Oral mucosa is unremarkable. There is no sign of thrush or mucositis. NECK: Supple. LYMPHATIC: There is no palpable cervical, supraclavicular, axillary or inguinal adenopathy. RESPIRATORY: Inspiratory breath sounds are of diminished intensity in all springer. No rales, wheezes or rhonchi. CARDIOVASCULAR: Rhythm is regular. Normal intensity S1/S2. There is no gallop or murmur. ABDOMEN: The abdomen is nondistended. No organomegaly. No tenderness. Extremities: No swelling or edema. SKIN: No jaundice or rash. No petechiae. Large sebaceous cyst mid right upper back. NEUROLOGIC: Generalized decreased strength of the legs. DTRs are normal. MUSCULOSKELETAL: Mild generalized muscle wasting. ASSESSMENT/PLAN: (C43.9) Malignant melanoma, unspecified site (HCC) (primary encounter diagnosis) (C78.7) Liver metastases (HCC) (C79.31) Brain metastases (HCC) Assessment: -KPS is 60% -BRAF mutated but not classic V600 mutation. -Tolerating dabrafenib and trametinib very well without any symptomatic side effect. -Discussed with the family that if there is a objective response then it would be expected to occur within the first few weeks to month or 2 in starting drug. Therefore we'll plan first CT scan in a month. Plan: -Lab work CT scan, MRI brain office visit in about a month. -Referral to Dr. Zena Mukherjee for skin surveillance exams. (I82.412) Acute deep vein thrombosis (DVT) of femoral vein of left lower extremity (HCC) Assessment: -Asymptomatic. Plan: -The patient needs anticoagulation. We'll contact assistance [facility] today and if there is any further delay in getting him drug he'll be started on Coumadin. Akbar Mcarthur DO CNOVSP Observed: 10/18/2017 Status: COMPLETED Source: [place] 11:50 AM [facility] REPOSITORY Visit (SP) Office ([place]) DELMI PHILLIPS ([id number]) 1950 M Date Time Provider Department 10/18/17 11:50 AM AKBAR MCARTHUR During your visit today, we recorded the following information about you: Temperature Pulse Blood pressure Weight 98 degrees 95/minute 102/75 64 kg Akbar Mcarthur DO 10/18/2017 12:36 PM Signed Diagnosis: 1) Metastatic melanoma. HPI: The patient is a 67-year-old male who has a past medical history significant for alcohol dependence who the day after [place] stumbled when coming down a set of steps. Following that he noticed progressive pain in the left upper chest. He was seen by his primary care physician and underwent a CT scan of the chest on 05/11/2017. That study demonstrated numerous bilateral areas of pleural-based and parenchymal nodularity measuring 2-7 mm in size. There was no calcification or cavitation noted. Ascending aorta was mildly ectatic and measured at 38 mm. There was mild prominence of the central pulmonary artery. In the high posterior) midline dorsal region was in the approximate T2 area there was a subcutaneous soft tissue mass measuring 34 x 25 mm. This was thought to possibly be a large sebaceous cyst. There was a comminuted fracture with approximate 40% volume loss of what appeared to be T4. This involved the left side and relatively blastic in appearance. The patient also underwent a CT scan of the abdomen and pelvis on 05/25/2017. That study demonstrated multiple hypodense nodules in the liver suggestive of diffuse metastatic disease. There were also several peripheral nodules in the spleen that were hypodense suggestive of metastatic changes well. Bladder was mildly distended. The patient was having progressive lower tissue weakness therefore admitted to [facility] 06/04/2017. MRI of the spine: Cervical spine: Focus of marrow signal abnormality at C4 compatible with bony metastasis. ?No pathologic enhancement in the cervical cord. ?Severe degenerative disc disease in the lower cervical spine with Canal stenosis is worst at C5-C6. Thoracic spine: Multiple areas of abnormal marrow signal in the MID thoracic vertebrae. ?T4 is most affected which shows a 50% pathologic compression fracture with abnormal epidural metastatic soft tissue. ?This results in moderate CORD compression at this level without evidence for cord signal abnormality. No evidence of leptomeningeal disease in the thoracic CORD. Lumbar spine: Bony metastasis at the S2 segment. ?Lumbar vertebrae show no evidence of metastatic disease. ?No evidence of leptomeningeal disease. ?Severe neural foraminal stenoses at right L4-L5 and bilateral L5-S1 due to degenerative disc and facet disease. ?No pathologic enhancement involving conus medullaris or cauda equina. Incidentally noted 1.5 cm enhancing lesion in the right lobe of the liver. ?This is suspicious for an additional metastatic focus. He was discharged but presented to emergency room at [facility] a day later with complaints of progressive weakness of the left arm. He was transferred back to [facility] where he underwent a brain MRI that disclosed at least 8 parenchymal brain metastases. His pain was under good control and his spine was thought to be stable for discharge. Plan was for outpatient radiation. Biopsy sample from the liver which was taken during his first hospitalization returned as metastatic melanoma. Previous therapy: 1) WBRT and palliative radiation T2-T5. 2) Keytruda. Current therapy: 1) Dabrafenib/trametinib. Began 09/19/2017. Presents for ongoing oncologic management. Interim history: Since last seen he began current therapy on 09/19/2017. No symptomatic side effects thus far. His reports his appetite has really been doing wonderfully and is been eating a lot more. However weight continues to decline. He's not had any trouble with nausea or vomiting. No reflux. Bowels have been working. He's had no symptoms of GI bleeding. He hasn't noticed any new or concerning skin lesions. When he was called about instructions on his current medicines on 09/19, his brought up that he was having lower extremity edema. The next day and ultrasound was performed that demonstrated evidence of acute proximal DVT in the common femoral vein as well as in the femoral vein from proximal to mid area on the left side. He was started on Xarelto 15 mg twice a day. ground services instructor was able to get an urgent drug assistance for this. A prescription for the 20 mg tablets was admitted to [facility] several weeks ago. Patient ran out of drug about a week ago. He doesn't yet have the 20 mg tablets. He denies lower extremity swelling and edema at this point but does get some mild ankle edema at night. He denies shortness of breath at rest and with walking. Occasionally he'll have some dyspnea on exertion with going longer distances but this is been a stable symptom. He is no longer having any coughing spells. He denies sputum production, wheezing and hemoptysis. He hasn't had any other unusual bleeding or unexplained bruising. No episodes of fever, night sweats or shaking chills. Energy level is fair. He says his back pain is minimal at this point. He is not feeling it every day. He still has an occasional problem with foot drop on the left side that causes some stumbling but is had no falls in the last several weeks. Physical therapy continues to do home physical therapy. He's been using a walker when he is out in at home often times he doesn't feel need for the walker. PMH, medications and allergies personally reviewed by me today. Any changes documented in appropriate section. ROS: Constitutional: See above. Neuro: Denies DIAZ, vertigo, dizziness. HEENT: No recent change in voice, vision or hearing. Resp: See above. CVS: Denies exertional chest pain, PND, orthopnea. GI: Denies dysgeusia. Denies symptoms of stomatitis. Denies dysphagia and odynophagia. : Denies dysuria or gross hematuria. No symptoms of bladder outlet obstruction. Endo: Denies hot flashes. Denies polyuria and polydipsia. Denies heat and cold intolerance. Musculoskeletal: See above. Derm: Denies rash. Denies jaundice and diffuse pruritis. Heme: See above. Psych: Normal mood. PHYSICAL EXAM: Vitals: Blood pressure 102/75, pulse 95, temperature 36.7 ?C (98 ?F), temperature source Temporal Artery, weight 64 kg (141 lb). Thin, but well-appearing and in no acute distress. EYES: Sclerae are anicteric bilaterally. ENT: Oral mucosa is unremarkable. There is no sign of thrush or mucositis. NECK: Supple. LYMPHATIC: There is no palpable cervical, supraclavicular, axillary or inguinal adenopathy. RESPIRATORY: Inspiratory breath sounds are of diminished intensity in all springer. No rales, wheezes or rhonchi. CARDIOVASCULAR: Rhythm is regular. Normal intensity S1/S2. There is no gallop or murmur. ABDOMEN: The abdomen is nondistended. No organomegaly. No tenderness. Extremities: No swelling or edema. SKIN: No jaundice or rash. No petechiae. Large sebaceous cyst mid right upper back. NEUROLOGIC: Generalized decreased strength of the legs. DTRs are normal. MUSCULOSKELETAL: Mild generalized muscle wasting. ASSESSMENT/PLAN: (C43.9) Malignant melanoma, unspecified site (HCC) (primary encounter diagnosis) (C78.7) Liver metastases (HCC) (C79.31) Brain metastases (HCC) Assessment: -KPS is 60% -BRAF mutated but not classic V600 mutation. -Tolerating dabrafenib and trametinib very well without any symptomatic side effect. -Discussed with the family that if there is a objective response then it would be expected to occur within the first few weeks to month or 2 in starting drug. Therefore we'll plan first CT scan in a month. Plan: -Lab work CT scan, MRI brain office visit in about a month. -Referral to Dr. Zena Mukherjee for skin surveillance exams. (I82.412) Acute deep vein thrombosis (DVT) of femoral vein of left lower extremity (HCC) Assessment: -Asymptomatic. Plan: -The patient needs anticoagulation. We'll contact [facility] today and if there is any further delay in getting him drug he'll be started on Coumadin. DO Beverly Crandall LPN 10/18/2017 12:15 PM Signed Est patient. Discuss recent labs. Beverly Rice LPN Referring Provider: AKBAR MCARTHUR [[id number]] Allergies As of Date: 10/18/2017 Noted Allergy Reaction SULFA (SULFONAMIDE ANTIBIOTICS) 08/25/2011 2 - Rash TIZANIDINE 06/04/2017 8 - GI Upset Date Reviewed: 10/18/2017 Reviewed by: Beverly Rice LPN - Fully Assessed Reason for Visit: Established Patient [[id number]] Primary Visit Diagnosis:Malignant melanoma, unspecified site (HCC) [C43.9] Other Visit Diagnoses:Liver metastases (HCC) [C78.7] Brain metastases (HCC) [C79.31] Acute deep vein thrombosis (DVT) of femoral vein of left lower extremity (HCC) [I82.412] Malignant melanoma of skin (HCC) [C43.9] Order(s):CT ABD/PEL W IVCON [[id number]] Order #: [id number] FUTURE CT CHEST W IVCON [[id number]] Order #: [id number] FUTURE iv contrast (will be provided with radiology test)CT Chest ABD/PEL-Inject, intravenously, once for 1 dose.No IV access, insert saline lock prior to the beginning of sedation, infusion, injection of imaging exam. Discontinue saline lock post exam. If Pt. has a central line or IVAD, may access for administration according to line specific nursing protocol. Once exam is complete flush line and de-access according to line specific nursing protocol in the CT contrast administration guidelines link.Disp: 1 EachRfl: 0 enteric contrast (will be provided with radiology test)For CT CHESTABD/PEL W IVCON Routine order Administer, As Directed One Time Only, via Oral, Rectal, both Oral and Rectal, Enteric Tube, Stoma or Indwelling Catheter, Enteric Contrast as designated per enteric contrast guidelinesDisp: 1 EachRfl: 0 MRI BRAIN WO/W IVCON [[id number]] Order #: [id number] FUTURE iv contrast (will be provided with radiology test)MRI Brain Inject, intravenously, once for 1 dose.No IV access, insert saline lock prior to beginning of sedation, infusion, injection of imaging exam.Discontinue saline lock post exam. If Pt. has a central line or IVAD, may access for administration according to line specific nursing protocol.Once exam is complete flush line and de- access according to line specific nursing protocol in the MR contrast administration guidelines linkDisp: 1 EachRfl: 0 Follow-up and Disposition History Recorded Prescriptions as of 10/18/2017 Sig: DABRAFENIB 75 MG CAPSULE Take 2 capsules by mouth twic* TRAMETINIB 2 MG TABLET Take 1 tablet by mouth once d* PROMETHAZINE 25 MG TABLET Take 1 tablet by mouth every * ALBUTEROL SULFATE HFA 90 MCG/* Inhale 2 Puffs as instructed * THIAMINE HCL (VITAMIN B1) 100* Take 1 tablet by mouth once d* PREDNISONE 10 MG TABLET Take 1 tablet by mouth once d* OMEPRAZOLE 40 MG CAPSULE,MALISSA* Take 1 capsule by mouth once * COMPOUNDED PRESCRIPTION Outpatient Physical therapy f* ACETAMINOPHEN 325 MG TABLET Take 650 mg by mouth every 6 * IV CONTRAST (RADIOLOGY PROCED* CT Chest ABD/PEL-Inject, intr* ENTERIC CONTRAST (RADIOLOGY P* For CT CHESTABD/PEL W IVCON R* IV CONTRAST (RADIOLOGY PROCED* MRI Brain Inject, intravenous* RIVAROXABAN 20 MG TABLET Take 1 tablet by mouth daily * RIVAROXABAN 15 MG TABLET Take 1 tablet by mouth twice * Patient not taking: Reported on 10/18/2017 TRAMADOL 50 MG TABLET EVERY 6 HOURS NEEDED Medication notes this encounter THIAMINE HCL (VITAMIN B1) 100 MG TABLET >> Beverly Rice LPN 10/18/2017 11:55 AM >> BEVERLY RICE LPN TueOct 18, 2017 11:55 AM Taking super B complex RIVAROXABAN 20 MG TABLET >> Beverly Rice LPN 10/18/2017 11:55 AM >> BEVERLY RICE LPN jerardo Oct 18, 2017 11:55 AM Awaiting patient assistance TRAMADOL 50 MG TABLET >> Beverly Rice LPN 10/18/2017 11:56 AM >> BEVERLY RICE LPN jerardo Oct 18, 2017 11:56 AM Hasn't taken for 2 months Problem List As Of Date 10/18/2017 Noted Resolved Cord compression (HCC) [G95.20] INVALID FOR* More... Nicotine use disorder, F17.2 [F17.200] INVALID FOR* Brain metastases (HCC) [C79.31] INVALID FOR* Malignant melanoma (HCC) [C43.9] INVALID FOR* Liver metastases (HCC) [C78.7] INVALID FOR* Fall [W19.XXXA] INVALID FOR*08/13/2017 More... Acute deep vein thrombosis (DVT) of femoral vei*INVALID FOR* Visit Notes: >> Beverly Rice LPN TueOct 18, 2017 11:56 AM Status: Signed Est patient. Discuss recent labs. Beverly Rice LPN Encounter Status:Closed by AKBAR MCARTHUR DO on 10/18/17 [place] ABS GR + CBC Collected: 10/18/2017 Status: F Source: [place] 11:38 AM [facility] [place] REPOSITORY TYPE CODE TESTS RESULT OUT OF REFERENCE UNITS RANGE LAB WWBC 3.70-11.00 k/uL [place] WBC 6.71 LAB WRBC 4.20-6.00 m/uL Low [place] RBC 3.44 LAB WHGB 13.0-17.0 g/dL Low [place] Hemoglobin 10.5 LAB WHCT 39.0-51.0 % Low [place] Hematocrit 33.3 LAB WMCV 80.0-100.0 fL [place] MCV 96.8 LAB WMCH 26.0-34.0 pg [place] MCH 30.5 LAB WMCHC 30.5-36.0 g/dL [place] MCHC 31.5 LAB WRDW 11.5-15.0 % [place] High RDW 17.5 LAB WPLT 150-400 k/uL [place] Platelet Cnt 311 LAB WMPV 9.0-12.7 fL [place] MPV 9.2 Result Comment: Test performed at: [facility] [place], [address] [place], [place] [address]. LAB ABGRAN 1.45-7.50 k/uL Absol Gran 4.87 Count COMP METABOLIC PANEL Collected: 10/18/2017 Status: F Source: [place] 11:32 AM [facility] REPOSITORY TYPE CODE TESTS RESULT OUT OF REFERENCE UNITS RANGE LAB TP 6.3-8.0 g/dL Low Protein, Total 5.3 LAB ALB 3.9-4.9 g/dL Low Albumin 2.4 LAB CA 8.5-10.2 mg/dL Low Calcium, Total 8.0 LAB TBIL 0.2-1.3 mg/dL Bilirubin, Total 0.3 LAB ALKP 36-108 U/L Alkaline High Phosphatase 205 LAB AST 14-40 U/L AST High 78 LAB GLU 74-99 mg/dL Glucose High 100 Result Comment: The [place] [employer] (ADA) provides guidance for cutoff values for fasting glucose and random glucose. The ADA defines fasting as no caloric intake for at least 8 hours. Fas ting plasma glucose results between 100 to 125 mg/dL indicate increased risk for diabetes (prediabetes). Fasting plasma glucose results greater than or equal to 126 mg/dL meet the criteria for diagnosis of diabetes. In the absence of unequivocal hyperglycemia, results should be confirmed by repeat testing. In a patient with classic symptoms of hyperglycemia or hyperglycemic crisis, random plasma glucose results greater than or equal to 200 mg/dL meet the criteria for diagnosis of diabetes. Reference: Standards of Medical Care in Diabetes 2016, [place] [employer] Association. Diabetes Care. 2016.39(Suppl 1). LAB BUN 9-24 mg/dL Low BUN 7 LAB CRET 0.73-1.22 mg/dL Low Creatinine 0.66 LAB NA 136-144 mmol/L Low Sodium 135 LAB K 3.7-5.1 mmol/L Potassium High 5.3 LAB CL 97-105 mmol/L Chloride 102 LAB CO2 22-30 mmol/L CO2 22 LAB AGAP 9-18 mmol/L Anion Gap 11 LAB ALT 10-54 U/L ALT High 60 LAB GFRAA eGFR- Amer. >60 LAB GFRNAA . eGFR-All Other Races >60 Result Comment: eGFR (Estimated GFR) Units of measure: mL/min/1.73 meters squared eGFR is derived from the reexpressed MDRD Study equation using the following parameters: serum creatinine, age, gender and race. The creatinine assay has been calibrated to be traceable to IDMS. An eGFR <60 mL/min/1.73m2 for >3 months is consistent with chronic kidney disease. Refer to KDOQI guidelines for clinical interpretation. In patients with unstable renal function, e.g. those with acute kidney injury, the eGFR may not accurately reflect actual GFR. Performed By: #### CMP #### [facility] [address] [place], [place] [address] PROGRESS Observed: 10/12/2017 Status: COMPLETED Source: [place] 11:01 AM [facility] [place] REPOSITORY HNO ID: [id number] Author: Gladys (Spike) Duke Service: (none) Author Type: [employer] Operator Type: Progress Notes Filed: 10/12/2017 11:14 AM Note Text: Social Work Problem Referral Note INFORMATION/REFERRAL : Delmi Phillips 67 year old male was referred by family - Name: [id number]-[id number]-mdoRenuka to [facility] Social Work for the following reason(s): financial assistance - meals, parking, etc. PERSONS INTERVIEWED: family - Name: [id number]-wi-acr, Tina INTERVENTION: Phone Contact and Information AND Referral Service Co-ordination Affect/Mood: The patient is noted as did not assess patient IDENTIFIED PROBLEMS/NEEDS: Continue to assess/collaborate Intervention/Referral to be provided:Arrangements made for continuity of care Financial: Applications(s) sent to: Other: [employer] IMPRESSION/PLAN: SPIKE received referral to call patient's [id number] regarding Xarelto patient assistance through [employer]. Per DIL, patient was approved for free 30-day trial, but now that this is almost gone, MAIK is stating they never received an application for the patient assistance program for patient. SPIKE printed this off and completed physician portion and most of patient portion. Patient's DIL came to meat pickler application and SPIKE explained what still needs completed and how they also need to send a copy of patient's tax information with application (SW already attached copy of patient's Medicare card). SPIKE highlighted fax number and patient's DIL will fax when completed. SPIKE provided phone number in case there are any questions. F/U APPOINTMENT: JAYLENE [place] CNSW Observed: 10/12/2017 Status: COMPLETED Source: [place] 12:00 AM [facility] REPOSITORY Social Work (HEMAWS) ALANDELMI Soni ([id number]) 1950 M Date Time Provider Department 10/12/17 GLADYS PEREZ (SPIKE) JOSSY During your visit today, we recorded the following information about you: JAYLENE Zavala 10/12/2017 11:14 AM Signed Social Work Problem Referral Note INFORMATION/REFERRAL : Delmi Phillips 67 year old male was referred by family - Name: [id number]-pt-udy, Tina to [facility] Social Work for the following reason(s): financial assistance - meals, parking, etc. PERSONS INTERVIEWED: family - Name: usihblpz-do-vcz, Tina INTERVENTION: Phone Contact and Information AND Referral Service Co-ordination Affect/Mood: The patient is noted as did not assess patient IDENTIFIED PROBLEMS/NEEDS: Continue to assess/collaborate Intervention/Referral to be provided:Arrangements made for continuity of care Financial: Applications(s) sent to: Other: [employer] IMPRESSION/PLAN: SW received referral to call patient's [id number] regarding Xarelto patient assistance through [employer]. Per DIL, patient was approved for free 30-day trial, but now that this is almost gone, MAIK is stating they never received an application for the patient assistance program for patient. SPIKE printed this off and completed physician portion and most of patient portion. Patient's DIL came to meat pickler application and SPIKE explained what still needs completed and how they also need to send a copy of patient's tax information with application (SPIKE already attached copy of patient's Medicare card). SPIKE highlighted fax number and patient's DIL will fax when completed. SPIKE provided phone number in case there are any questions. F/U APPOINTMENT: PRN JAYLENE Zavala Allergies As of Date: 10/12/2017 Noted Allergy Reaction SULFA (SULFONAMIDE ANTIBIOTICS) 08/25/2011 2 - Rash TIZANIDINE 06/04/2017 8 - GI Upset Date Reviewed: 09/07/2017 Reviewed by: Akbar Mcarthur - Fully Assessed Reason for Visit: Social Work Services [507] Prescriptions as of 10/12/2017 Sig: RIVAROXABAN 20 MG TABLET Take 1 tablet by mouth daily * PROMETHAZINE 25 MG TABLET Take 1 tablet by mouth every * RIVAROXABAN 15 MG TABLET Take 1 tablet by mouth twice * TRAMETINIB 2 MG TABLET Take 1 tablet by mouth once d* DABRAFENIB 75 MG CAPSULE Take 2 capsules by mouth twic* ALBUTEROL SULFATE HFA 90 MCG/* Inhale 2 Puffs as instructed * THIAMINE HCL (VITAMIN B1) 100* Take 1 tablet by mouth once d* PREDNISONE 10 MG TABLET Take 1 tablet by mouth once d* OMEPRAZOLE 40 MG CAPSULE,MALISSA* Take 1 capsule by mouth once * TRAMADOL 50 MG TABLET EVERY 6 HOURS NEEDED COMPOUNDED PRESCRIPTION Outpatient Physical therapy f* ACETAMINOPHEN 325 MG TABLET Take 650 mg by mouth every 6 * Problem List As Of Date 10/12/2017 Noted Resolved Cord compression (HCC) [G95.20] INVALID FOR* More... Nicotine use disorder, F17.2 [F17.200] INVALID FOR* Brain metastases (HCC) [C79.31] INVALID FOR* Malignant melanoma (HCC) [C43.9] INVALID FOR* Liver metastases (HCC) [C78.7] INVALID FOR* Fall [W19.XXXA] INVALID FOR*08/13/2017 More... Encounter Status:Closed by GLADYS PEREZ on 10/12/17 PROGRESS Observed: 09/21/2017 Status: COMPLETED Source: [place] 2:16 PM [facility] REPOSITORY O ID: [id number] Author: Gladys Barrera) Duke Service: (none) Author Type: [employer] Operator Type: Progress Notes Filed: 09/21/2017 2:20 PM Note Text: Social Work Problem Referral Note INFORMATION/REFERRAL : Delmi Phillips 67 year old male was referred by physician to [facility] Social Work for the following reason(s): financial assistance - meals, parking, etc. PERSONS INTERVIEWED: patient and physician INTERVENTION: Information AND Referral Service Co-ordination Affect/Mood: The patient is noted as appropriate IDENTIFIED PROBLEMS/NEEDS: Financial Intervention/Referral to be provided:Arrangements made for continuity of care IMPRESSION/PLAN: SPIKE was asked to assist patient with patient assistance for Xarelto. SPIKE completed application and called patient to inform him that he will need to sign in two spots and he will also need to bring in his most recent 1040. Patient is agreeable. Patient states he needs to schedule an appointment in the next few days, so he will meet with SPIKE at that time. F/U APPOINTMENT: JAYLENE [place] CNSW Observed: 09/21/2017 Status: COMPLETED Source: [place] 12:00 AM [facility] Social Work (JOSSY) DELMI PHILLIPS ([id number]) 1950 M Date Time Provider Department 09/21/17 GLADYS PEREZ (SPIKE) JOSSY During your visit today, we recorded the following information about you: JAYLENE Zavala 09/21/2017 2:20 PM Signed Social Work Problem Referral Note INFORMATION/REFERRAL : Delmi Phillips 67 year old male was referred by physician to [facility] Social Work for the following reason(s): financial assistance - meals, parking, etc. PERSONS INTERVIEWED: patient and physician INTERVENTION: Information AND Referral Service Co-ordination Affect/Mood: The patient is noted as appropriate IDENTIFIED PROBLEMS/NEEDS: Financial Intervention/Referral to be provided:Arrangements made for continuity of care IMPRESSION/PLAN: SPIKE was asked to assist patient with patient assistance for Xarelto. SPIKE completed application and called patient to inform him that he will need to sign in two spots and he will also need to bring in his most recent 1040. Patient is agreeable. Patient states he needs to schedule an appointment in the next few days, so he will meet with SPIKE at that time. F/U APPOINTMENT: JAYLENE Mead Allergies As of Date: 09/21/2017 Noted Allergy Reaction SULFA (SULFONAMIDE ANTIBIOTICS) 08/25/2011 2 - Rash TIZANIDINE 06/04/2017 8 - GI Upset Date Reviewed: 09/07/2017 Reviewed by: Akbar Mcarthur - Fully Assessed Reason for Visit: Social Work Services [507] Cmt: patient assistance Xarelto Prescriptions as of 09/21/2017 Sig: RIVAROXABAN 20 MG TABLET Take 1 tablet by mouth daily * RIVAROXABAN 15 MG TABLET Take 1 tablet by mouth twice * TRAMETINIB 2 MG TABLET Take 1 tablet by mouth once d* DABRAFENIB 75 MG CAPSULE Take 2 capsules by mouth twic* ALBUTEROL SULFATE HFA 90 MCG/* Inhale 2 Puffs as instructed * THIAMINE HCL (VITAMIN B1) 100* Take 1 tablet by mouth once d* PREDNISONE 10 MG TABLET Take 1 tablet by mouth once d* PROMETHAZINE 25 MG TABLET Take 1 tablet by mouth every * OMEPRAZOLE 40 MG CAPSULE,MALISSA* Take 1 capsule by mouth once * TRAMADOL 50 MG TABLET EVERY 6 HOURS NEEDED COMPOUNDED PRESCRIPTION Outpatient Physical therapy f* ACETAMINOPHEN 325 MG TABLET Take 650 mg by mouth every 6 * Problem List As Of Date 09/21/2017 Noted Resolved Cord compression (HCC) [G95.20] INVALID FOR* More... Nicotine use disorder, F17.2 [F17.200] INVALID FOR* Brain metastases (HCC) [C79.31] INVALID FOR* Malignant melanoma (HCC) [C43.9] INVALID FOR* Liver metastases (HCC) [C78.7] INVALID FOR* Fall [W19.XXXA] INVALID FOR*08/13/2017 More... Encounter Status:Closed by GLADYS PEREZ on 09/21/17 DISCHARGE INSTRUCTION Observed: 09/20/2017 Status: F Source: [place] 3:31 PM [facility] Medical Records Department [address] [place] [address] Discharge Instruction 09/20/17 1529 MR#: [id number] Acct: [id number] Name: DELMI PHILLIPS Rep #: [id number] : 1950 67 From: Juan Luis Alcocer DO PCP: JATINDER Connolly Status: REG ER ED Disposition - Plan for ED Patient: Chief Complaint: Lower Extremity Injury Instructions: ED DVT Prescriptions: Rivaroxaban [Xarelto] 20 mg PO DAILY #7 tab Rivaroxaban [Xarelto] 15 mg PO BID #42 tab Referrals: Jerry Aguirre NP-C [Primary Care Provider] - Akbar Mcarthur DO [STAFF PHYSICIAN] - 5-7 Days What to do if you have Problems For any increased pain, shortness of breath, bleeding, nausea or vomiting, chest pain, or any unexpected problems, contact your Primary Care Provider. Call [facility] ([phone]) or report to the closest Emergency Room. Call 911 if necessary. 09/20/17 1531 <Electronically signed by Juan Luis Alcocer DO> Date Juan Luis Alcocer DO Cosigner Signature (If Indicated): Date CC: JATINDER Aguirre EMERGENCY DEPARTMENT Observed: 09/20/2017 Status: F Source: [place] SUMMARY 3:28 PM [facility] RE[facility] Medical Records Department [address] [place] [address] Emergency Department Summary 09/20/17 1525 MR#: [id number] Acct: [id number] Name: DELMI PHILLIPS Rep #: [id number] : 1950 67 From: Juan Luis Alcocer DO PCP: JATINDER Connolly Status: REG ER - ER Visit Summary Date of Service: 09/20/17 Chief Complaint: [DVT left leg] History of Present Illness: The patient is a 67 M [presents the emergency department complaint of swelling in his left leg for about a week. Patient was seen by Dr. Spangler and had a venous Doppler ordered which showed a femoral vein DVT. Dr. Mcarthur asked that patient come in to be admitted for anticoagulation as he does not have prescription coverage and cannot afford the medication for anticoagulation of his DVT. Patient denies any chest pain. 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 Cranial nerves II through XII grossly intact. TMs clear. Mucous membranes moist. No adenopathy. Cardiovascular-regular and tachycardic. No murmurs auscultated. Lungs-clear to auscultation, chest wall stable without crepitus or subcu emphysema Abdomen-normoactive bowel sounds, soft, nontender, no rebound or rigidity, no peritoneal signs. Extremities-intact 4, normal range of motion, normal pulses, atraumatic]. Patient does have edema of both lower extremities of +2. Positive Homans sign on the left. No ropes or cords palpated. Has normal pulses in both lower extremities. Test Results: [CBC with differential obtained showed a white count 17.4, hemoglobin 10, hematocrit 33, placed 346. Chemistries unremarkable. BUN was 15 and current was 0.71.] Emergency Department Course and Treatment: [liner worker speak with the patient as well as with Dr. Mcarthur. At this point the worker will be able to have patient obtain a months worth of Xarelto at no charge to himself and Dr. Mcarthur's team will work on arranging further treatment of his DVT. Patient will be discharged to home and to follow- up with Dr. Mcarthur. She did receive a liter normal same fluid bolus in the emergency department as family was concerned the patient was not drinking enough.] Treatment Plan: [Patient will be started on Xarelto and was given 15 mg p.o. in the emergency department prior to departure.] Disposition: [Discharged home in stable condition. Patient advised to return if chest pain or increasing shortness of breath.] Impression: [DVT left lower extremity] This note was generated with [employer]ype dictation software. It may contain incorrect words, spelling, and punctuation that were not noted in review of the chart prior to signing ED Disposition - Plan for ED Patient: Chief Complaint: Lower Extremity Injury Referrals: Jerry Aguirre NP-C [Primary Care Provider] - What to do if you have Problems For any increased pain, shortness of breath, bleeding, nausea or vomiting, chest pain, or any unexpected problems, contact your Primary Care Provider. Call [facility] ([phone]) or report to the closest Emergency Room. Call 911 if necessary. 09/20/17 1528 <Electronically signed by Juan Luis Alcocer DO> Date Juan Luis Alcocer DO Cosigner Signature (If Indicated): Date CC: JATINDER Aguirre CBC W/DIFF, AUTOMATED Collected: 09/20/2017 Status: F Source: [place] 1:40 PM [facility] REPOSITORY TYPE CODE TESTS RESULT OUT OF RANGE REFERENCE UNITS LAB L100.1000 4.4-11.0 K/mm3 High WBC 17.4 LAB L100.1200 4.6-6.2 M/mm3 Low RBC 3.65 LAB L100.1300 13.0-16.5 g/dl Low HGB 10.6 LAB L100.1400 40-54 % Low HCT 32.7 LAB L100.1500 80-94 fL Normal MCV 89.6 LAB L100.1600 27.0-32.0 pg Normal MCH 29.0 LAB L100.1700 32-36 g/gl Normal MCHC 32.4 LAB L100.1810 11.6-14.6 % High RDW CV 19.1 LAB L100.1820 35.1-43.9 fl High RDW SD 62.9 LAB L100.1900 150-450 K/mm3 Normal PLT 346 LAB L100.2000 6.2-12.0 fl Normal MPV 8.9 LAB L100.2100 47-70 % High NEUT% 89.7 LAB L100.2200 19-41 % Low LY% 7.1 LAB L100.2300 0-10 % Normal MONO% 2.9 LAB L100.2400 0-5 % Normal EO% 0.0 LAB L100.2500 0-1 % Normal BASO% 0.0 LAB L100.2550 0.0-0.9 % Normal IM GRAN % 0.300 Result Comment: IG% - Immature Granulocytes (promyelocytes, myelocytes and metamyelocytes) > 1% indicates that a LEFT SHIFT is Present. LAB L100.2620 2.0-7.7 X10 3/uL High Absolute Neut 15.6 LAB L100.2720 0.83-4.51 X10 3/ul Normal Absolute Lymph 1.24 Performed By: #### L100.0100 #### [facility] [address] [facility] [facility]. [place], [place], [address] BASIC METABOLIC Collected: 09/20/2017 Status: F Source: [place] PROFILE (BMP) 1:40 PM [facility] REPOSITORY TYPE CODE TESTS RESULT OUT OF RANGE REFERENCE UNITS LAB L501.0100 74-106 mg/dL Normal GLU 84 Result Comment: Please note revised GLUCOSE reference range effective 2017. LAB L501.1000 7-18 mg/dL Normal BUN 15 LAB L501.1100 0.70-1.30 mg/dL Normal CREAT,SERUM 0.71 Result Comment: The validity of the calculated GFR AND GFRAA in patients over 70 years has not been determined. Clinical correlation is essential. LAB L501.1110 >60 mL/min Normal EST GFR 118 Result Comment: Non- GFR Calc LAB L501.1115 >60 mL/min Normal EST GFR - AA 143 Result Comment: GFR Calc LAB L501.1255 ml/min Normal Estimated CRCL 74.50 LAB L501.1300 10-20 RATIO High BUN/CRE 21.2 LAB L501.2200 8.5-10 mg/dL Low .1 CA 7.1 LAB L501.5300 136-14 mmol/L Normal 5 NA 136 LAB L501.5600 3.5-5. mmol/L Normal 1 K 3.5 LAB L501.5900 98-107 mmol/L Normal CL 103 LAB L501.6100 21.0-3 mmol/L Normal 2.0 CO2 22.0 LAB L501.6200 5-15 Normal GAP 11 Performed By: #### L500.2500 #### [facility] [address] [place], [address] PROGRESS Observed: 09/19/2017 Status: COMPLETED Source: [place] 2:30 PM [facility] REPOSITORY HNO ID: [id number] Author: Gladys Perez (Sw) Service: (none) Author Type: [employer] Operator Type: Progress Notes Filed: 09/19/2017 2:33 PM Note Text: Social Work Problem Referral Note INFORMATION/REFERRAL : Delmi Phillips 67 year old male was referred by nurse to [facility] Social Work for the following reason(s): Patient assistance PERSONS INTERVIEWED: [facility], [employer], nurse INTERVENTION: Phone Contact and Information AND Referral Service Co-ordination Affect/Mood: The patient is noted as patient not assessed IDENTIFIED PROBLEMS/NEEDS: patient assistance Intervention/Referral to be provided:No further intervention required IMPRESSION/PLAN: SPIKE called [facility] regarding medication shipment issue for patient. Per nurse, patient's called in stating that patient only received Taflinar and not the Menekist. [facility] referred SW to [employer], the drug company who is in charge of shipping the medication from this point forward. SPIKE was informed that the number SPIKE called ([phone]) is for the program patient is getting Taflinar through only. Patient is receiving Menekist through their [employer] Patient Assistance Now Program ([phone]). SPIKE spoke with a customer engagement representative from this department and was informed [employer]ekist would be delivered on 09/20/17. F/U APPOINTMENT: JAYLENE Mead CNSW Observed: 09/19/2017 Status: COMPLETED Source: [place] 12:00 AM [facility] REPOSITORY Social Work (JOSSY) DELMI PHILLIPS ([id number]) 1950 M Date Time Provider Department 09/19/17 GLADYS PEREZ (SW) During your visit today, we recorded the following information about you: JAYLENE Zavala 09/19/2017 2:33 PM Signed Social Work Problem Referral Note INFORMATION/REFERRAL : Delmi Phillips 67 year old [facility] for the following reason(s): Patient assistance PERSONS INTERVIEWED: [facility], [employer], nurse INTERVENTION: Phone Contact and Information AND Referral Service Co-ordination Affect/Mood: The patient is noted as patient not assessed IDENTIFIED PROBLEMS/NEEDS: patient assistance Intervention/Referral to be provided:No further intervention required IMPRESSION/PLAN: SW called [facility] regarding medication shipment issue for patient. Per nurse, patient's called in stating that patient only received Taflinar and not the Menekist. [facility] referred SW to [employer], the drug Harry[employer] who is in charge of shipping the medication from this point forward. SW was informed that the number SW called ([phone]) is for the program patient is getting Taflinar through only. Patient is receiving Menekist through their [employer] Patient Assistance Now Program ([phone]). SPIKE spoke with a customer engagement representative from this department and was informed [employer]ekist would be delivered on 09/20/17. F/U APPOINTMENT: JAYLENE Mead Allergies As of Date: 09/19/2017 Noted Allergy Reaction SULFA (SULFONAMIDE ANTIBIOTICS) 08/25/2011 2 - Rash TIZANIDINE 06/04/2017 8 - GI Upset Date Reviewed: 09/07/2017 Reviewed by: Akbar Mcarthur - Fully Assessed Reason for Visit: Social Work Services [507] Cmt: patient assistance Prescriptions as of 09/19/2017 Sig: TRAMETINIB 2 MG TABLET Take 1 tablet by mouth once d* DABRAFENIB 75 MG CAPSULE Take 2 capsules by mouth twic* ALBUTEROL SULFATE HFA 90 MCG/* Inhale 2 Puffs as instructed * THIAMINE HCL (VITAMIN B1) 100* Take 1 tablet by mouth once d* PREDNISONE 10 MG TABLET Take 1 tablet by mouth once d* PROMETHAZINE 25 MG TABLET Take 1 tablet by mouth every * OMEPRAZOLE 40 MG CAPSULE,MALISSA* Take 1 capsule by mouth once * TRAMADOL 50 MG TABLET EVERY 6 HOURS NEEDED COMPOUNDED PRESCRIPTION Outpatient Physical therapy f* ACETAMINOPHEN 325 MG TABLET Take 650 mg by mouth every 6 * Problem List As Of Date 09/19/2017 Noted Resolved Cord compression (HCC) [G95.20] INVALID FOR* More... Nicotine use disorder, F17.2 [F17.200] INVALID FOR* Brain metastases (HCC) [C79.31] INVALID FOR* Malignant melanoma (HCC) [C43.9] INVALID FOR* Liver metastases (HCC) [C78.7] INVALID FOR* Fall [W19.XXXA] INVALID FOR*08/13/2017 More... Encounter Status:Closed by GLADYS PEREZ on 09/19/17 PROGRESS Observed: 09/08/2017 Status: COMPLETED Source: [place] 8:57 AM [facility] REPOSITORY HNO ID: [id number] Author: Marybel Yarbrough (Pharmacist) Service: (none) Author Type: Pharmacist Type: Progress Notes Filed: 09/23/2017 12:16 PM Note Text: [facility] received prescription(s) for trametinib/dabrafenib from Dr. Mcarthur's office. Benefits investigation was conducted, indicating that patient does not have prescription drug coverage. I spoke with patient's daughter to confirm and was able to determine eligibility for free drug assistance through [facility]. Note will be updated accordingly as we receive application for review. [facility] Assessment MARYBEL YARBROUGH, PHARMACIST PROGRESS Observed: 09/08/2017 Status: COMPLETED Source: [place] 8:57 AM [facility] REPOSITORY HNO ID: [id number] Author: Corazon Mckeon (Pharmacist) Service: (none) Author Type: Pharmacist Type: Progress Notes Filed: 09/23/2017 12:16 PM Note Text: Pt will be referred to [employer] ([employer]) for dabrafenib (Tafinlar) and trametinib (Mekinist), and pt meets the current income guidelines for the program. The following documents are required by the program for submission: ? Application ? Proof of Income Application was sent to pt's daughter Maria L via email ([email or web address]) per her request to be signed and completed. Emphasized importance of returning all required documents in a timely matter, and the estimated turnaround for review of the application (7-10 business days) once submitted. S/he expressed understanding of the information we provided today, and received our contact information for the pharmacy if s/he had any other questions. Dr. Mcarthur - we will be faxing an application to your office which requires your signature. Please sign where indicated and return via fax to [phone]. Corazon Mckeon PharmD Clinical Pharmacist, Oncology, Growth H[employer] [facility] P: , F: Ext [phone] PROGRESS Observed: 09/08/2017 Status: COMPLETED Source: [place] 8:57 AM [facility] REPOSITORY HNO ID: [id number] Author: Debbie Falcon (Belt Tender) Service: (none) Author Type: (none) Type: Progress Notes Filed: 09/23/2017 12:16 PM Note Text: Received all required documents via fax from Dr. Mcarthur's office. Complete application has been submitted to [facility] for review. Debbie Falcon CPhT [facility], Oncology [phone] PROGRESS Observed: 09/08/2017 Status: COMPLETED Source: [place] 8:57 AM [facility] REPOSITORY HNO ID: [id number] Author: Corazon Mckeon (Pharmacist) Service: (none) Author Type: Pharmacist Type: Progress Notes Filed: 09/23/2017 12:16 PM Note Text: Dr. Mcarthur - can you please fax signed hardcopy prescriptions for both dabrafenib (Tafinlar) and trametinib (Mekinist) to [employer] (NP) F: [phone]? They need these prescriptions to continue processing his application. Thank you! PROGRESS Observed: 09/07/2017 Status: COMPLETED Source: [place] 11:07 AM [facility] REPOSITORY HNO ID: [id number] Author: Akbar Mcarthur Service: (none) Author Type: Physician Type: Progress Notes Filed: 09/07/2017 11:38 AM Note Text: Diagnosis: 1) Metastatic melanoma. HPI: The patient is a 67-year-old male who has a past medical history significant for alcohol dependence who the day after Thanksgiving stumbled when coming down a set of steps. Following that he noticed progressive pain in the left upper chest. He was seen by his primary care physician and underwent a CT scan of the chest on 05/11/2017. That study demonstrated numerous bilateral areas of pleural-based and parenchymal nodularity measuring 2-7 mm in size. There was no calcification or cavitation noted. Ascending aorta was mildly ectatic and measured at 38 mm. There was mild prominence of the central pulmonary artery. In the high posterior) midline dorsal region was in the approximate T2 area there was a subcutaneous soft tissue mass measuring 34 x 25 mm. This was thought to possibly be a large sebaceous cyst. There was a comminuted fracture with approximate 40% volume loss of what appeared to be T4. This involved the left side and relatively blastic in appearance. The patient also underwent a CT scan of the abdomen and pelvis on 05/25/2017. That study demonstrated multiple hypodense nodules in the liver suggestive of diffuse metastatic disease. There were also several peripheral nodules in the spleen that were hypodense suggestive of metastatic changes well. Bladder was mildly distended. The patient was having progressive lower tissue weakness therefore admitted to [facility] 06/04/2017. MRI of the spine: Cervical spine: Focus of marrow signal abnormality at C4 compatible with bony metastasis. ?No pathologic enhancement in the cervical cord. ?Severe degenerative disc disease in the lower cervical spine with Canal stenosis is worst at C5-C6. Thoracic spine: Multiple areas of abnormal marrow signal in the MID thoracic vertebrae. ?T4 is most affected which shows a 50% pathologic compression fracture with abnormal epidural metastatic soft tissue. ?This results in moderate CORD compression at this level without evidence for cord signal abnormality. No evidence of leptomeningeal disease in the thoracic CORD. Lumbar spine: Bony metastasis at the S2 segment. ?Lumbar vertebrae show no evidence of metastatic disease. ?No evidence of leptomeningeal disease. ?Severe neural foraminal stenoses at right L4-L5 and bilateral L5-S1 due to degenerative disc and facet disease. ?No pathologic enhancement involving conus medullaris or cauda equina. Incidentally noted 1.5 cm enhancing lesion in the right lobe of the liver. ?This is suspicious for an additional metastatic focus. He was discharged but presented to emergency room at [facility] a day later with complaints of progressive weakness of the left arm. He was transferred back to [facility] where he underwent a brain MRI that disclosed at least 8 parenchymal brain metastases. His pain was under good control and his spine was thought to be stable for discharge. Plan was for outpatient radiation. Biopsy sample from the liver which was taken during his first hospitalization returned as metastatic melanoma. Previous therapy: 1) WBRT and palliative radiation T2-T5. Current therapy: 1) Keytruda. Presents for ongoing oncologic management. Interim history: He has no complaints. He fell in the driveway last week and landed on his chest. He had pain in the area of the lower greater pectoralis muscle when extending his left arm above his head. Otherwise he denies constant back pain but has occasional back pain. His says he about once a week vomits for no clear reason. His appetite still remains poor. He's had no episode of jaundice or fever. His energy level is very low and he is rather fatigued. He has dyspnea with exertion. No shortness of breath at rest. No cough or sputum production. He does have an occasional wheeze and his daughter told me today that she found that he used to have a prescription for albuterol. When I asked him about it he said it did use to help him. Nausea under better control with use of Phenergan. PMH, medications and allergies personally reviewed by me today. Any changes documented in appropriate section. ROS: Constitutional: Denies episodes of fever and night sweats. Neuro: Denies DIAZ, vertigo, dizziness. HEENT: No recent change in voice, vision or hearing. Resp: See above. CVS: Denies exertional chest pain, PND, orthopnea and LE edema. GI: Denies dysgeusia. Denies symptoms of stomatitis. Denies dysphagia and odynophagia. : Denies dysuria or gross hematuria. No symptoms of bladder outlet obstruction. Endo: Denies hot flashes. Denies polyuria and polydipsia. Denies heat and cold intolerance. Musculoskeletal: See above. Derm: Denies rash. Denies jaundice and diffuse pruritis. Heme: Denies unusual bleeding and unexplained bruising. Psych: Normal mood. PHYSICAL EXAM: Vitals: Blood pressure 115/82, pulse 106, temperature 36.3 ?C (97.4 ?F), temperature source Oral, weight 70.8 kg (156 lb). Well-appearing and in no acute distress. EYES: Sclerae are anicteric bilaterally. ENT: Oral mucosa is unremarkable. There is no sign of thrush or mucositis. NECK: Supple. LYMPHATIC: There is no palpable cervical, supraclavicular, axillary adenopathy. RESPIRATORY: Inspiratory breath sounds are of diminished intensity in all springer. No rales, wheezes or rhonchi. CARDIOVASCULAR: Rhythm is regular. Normal intensity S1/S2. There is no gallop or murmur. ABDOMEN: The abdomen is nondistended. No organomegaly. No tenderness. Extremities: No swelling or edema. SKIN: No jaundice or rash. No petechiae. Large sebaceous cyst mid right upper back. Trace edema. NEUROLOGIC: Generalized decreased strength of the legs. DTRs are normal. MUSCULOSKELETAL: No muscle wasting. ASSESSMENT/PLAN: (C43.9) Malignant melanoma, unspecified site (HCC) (primary encounter diagnosis) (C78.7) Liver metastases (HCC) (C79.31) Brain metastases (HCC) Assessment: -KPS is 60% -BRAF mutated but not classic V600 mutation. -I personally reviewed CT images and again with patient and independently verified and agreed with the radiologist's findings. PD. -I discussed the rationale, logistics, potential risks (including ), benefits and alternatives, as well as the personnel involved in the administration of dabrafenib/trametinib. I answered his questions in detail and he verbalized understanding and agreed with the recommended therapy. Plan: -Echocardiogram. -Begin medication when he receives it. -Plan CT scan 1-2 months after starting drug. Akbar Mcarthur DO CNOVSP Observed: 09/07/2017 Status: COMPLETED Source: [place] 10:30 AM [facility] REPOSITORY Visit (SP) Office (JOSSY) DELMI PHILLIPS ([id number]) 1950 M Date Time Provider Department 09/07/17 10:30 AM AKBAR MCARTHUR During your visit today, we recorded the following information about you: Temperature Pulse Blood pressure Weight 97.4 degrees 106/minute 115/82 70.8 kg Akbar Mcarthur DO 09/07/2017 11:38 AM Signed Diagnosis: 1) Metastatic melanoma. HPI: The patient is a 67-year-old male who has a past medical history significant for alcohol dependence who the day after Thanksgiving stumbled when coming down a set of steps. Following that he noticed progressive pain in the left upper chest. He was seen by his primary care physician and underwent a CT scan of the chest on 05/11/2017. That study demonstrated numerous bilateral areas of pleural-based and parenchymal nodularity measuring 2-7 mm in size. There was no calcification or cavitation noted. Ascending aorta was mildly ectatic and measured at 38 mm. There was mild prominence of the central pulmonary artery. In the high posterior) midline dorsal region was in the approximate T2 area there was a subcutaneous soft tissue mass measuring 34 x 25 mm. This was thought to possibly be a large sebaceous cyst. There was a comminuted fracture with approximate 40% volume loss of what appeared to be T4. This involved the left side and relatively blastic in appearance. The patient also underwent a CT scan of the abdomen and pelvis on 05/25/2017. That study demonstrated multiple hypodense nodules in the liver suggestive of diffuse metastatic disease. There were also several peripheral nodules in the spleen that were hypodense suggestive of metastatic changes well. Bladder was mildly distended. The patient was having progressive lower tissue weakness therefore admitted to [facility] 06/04/2017. MRI of the spine: Cervical spine: Focus of marrow signal abnormality at C4 compatible with bony metastasis. ?No pathologic enhancement in the cervical cord. ?Severe degenerative disc disease in the lower cervical spine with Canal stenosis is worst at C5-C6. Thoracic spine: Multiple areas of abnormal marrow signal in the MID thoracic vertebrae. ?T4 is most affected which shows a 50% pathologic compression fracture with abnormal epidural metastatic soft tissue. ?This results in moderate CORD compression at this level without evidence for cord signal abnormality. No evidence of leptomeningeal disease in the thoracic CORD. Lumbar spine: Bony metastasis at the S2 segment. ?Lumbar vertebrae show no evidence of metastatic disease. ?No evidence of leptomeningeal disease. ?Severe neural foraminal stenoses at right L4-L5 and bilateral L5-S1 due to degenerative disc and facet disease. ?No pathologic enhancement involving conus medullaris or cauda equina. Incidentally noted 1.5 cm enhancing lesion in the right lobe of the liver. ?This is suspicious for an additional metastatic focus. He was discharged but presented to emergency room at [facility] a day later with complaints of progressive weakness of the left arm. He was transferred back to [facility] where he underwent a brain MRI that disclosed at least 8 parenchymal brain metastases. His pain was under good control and his spine was thought to be stable for discharge. Plan was for outpatient radiation. Biopsy sample from the liver which was taken during his first hospitalization returned as metastatic melanoma. Previous therapy: 1) WBRT and palliative radiation T2-T5. Current therapy: 1) Keytruda. Presents for ongoing oncologic management. Interim history: He has no complaints. He fell in the driveway last week and landed on his chest. He had pain in the area of the lower greater pectoralis muscle when extending his left arm above his head. Otherwise he denies constant back pain but has occasional back pain. His says he about once a week vomits for no clear reason. His appetite still remains poor. He's had no episode of jaundice or fever. His energy level is very low and he is rather fatigued. He has dyspnea with exertion. No shortness of breath at rest. No cough or sputum production. He does have an occasional wheeze and his daughter told me today that she found that he used to have a prescription for albuterol. When I asked him about it he said it did use to help him. Nausea under better control with use of Phenergan. PMH, medications and allergies personally reviewed by me today. Any changes documented in appropriate section. ROS: Constitutional: Denies episodes of fever and night sweats. Neuro: Denies DIAZ, vertigo, dizziness. HEENT: No recent change in voice, vision or hearing. Resp: See above. CVS: Denies exertional chest pain, PND, orthopnea and LE edema. GI: Denies dysgeusia. Denies symptoms of stomatitis. Denies dysphagia and odynophagia. : Denies dysuria or gross hematuria. No symptoms of bladder outlet obstruction. Endo: Denies hot flashes. Denies polyuria and polydipsia. Denies heat and cold intolerance. Musculoskeletal: See above. Derm: Denies rash. Denies jaundice and diffuse pruritis. Heme: Denies unusual bleeding and unexplained bruising. Psych: Normal mood. PHYSICAL EXAM: Vitals: Blood pressure 115/82, pulse 106, temperature 36.3 ?C (97.4 ?F), temperature source Oral, weight 70.8 kg (156 lb). Well-appearing and in no acute distress. EYES: Sclerae are anicteric bilaterally. ENT: Oral mucosa is unremarkable. There is no sign of thrush or mucositis. NECK: Supple. LYMPHATIC: There is no palpable cervical, supraclavicular, axillary adenopathy. RESPIRATORY: Inspiratory breath sounds are of diminished intensity in all springer. No rales, wheezes or rhonchi. CARDIOVASCULAR: Rhythm is regular. Normal intensity S1/S2. There is no gallop or murmur. ABDOMEN: The abdomen is nondistended. No organomegaly. No tenderness. Extremities: No swelling or edema. SKIN: No jaundice or rash. No petechiae. Large sebaceous cyst mid right upper back. Trace edema. NEUROLOGIC: Generalized decreased strength of the legs. DTRs are normal. MUSCULOSKELETAL: No muscle wasting. ASSESSMENT/PLAN: (C43.9) Malignant melanoma, unspecified site (HCC) (primary encounter diagnosis) (C78.7) Liver metastases (HCC) (C79.31) Brain metastases (HCC) Assessment: -KPS is 60% -BRAF mutated but not classic V600 mutation. -I personally reviewed CT images and again with patient and independently verified and agreed with the radiologist's findings. PD. -I discussed the rationale, logistics, potential risks (including ), benefits and alternatives, as well as the personnel involved in the administration of dabrafenib/trametinib. I answered his questions in detail and he verbalized understanding and agreed with the recommended therapy. Plan: -Echocardiogram. -Begin medication when he receives it. -Plan CT scan 1-2 months after starting drug. Akbar Mcarthur DO Referring Provider: AKBAR MCARTHUR [[id number]] Allergies As of Date: 09/07/2017 Noted Allergy Reaction SULFA (SULFONAMIDE ANTIBIOTICS) 08/25/2011 2 - Rash TIZANIDINE 06/04/2017 8 - GI Upset Date Reviewed: 09/07/2017 Reviewed by: Akbar Mcarthur - Fully Assessed Reason for Visit: Established Patient [[id number]] Primary Visit Diagnosis:Malignant melanoma, unspecified site (HCC) [C43.9] Other Visit Diagnoses:Liver metastases (HCC) [C78.7] Brain metastases (HCC) [C79.31] Dyspnea and respiratory abnormalities [R06.00, R06.89] Order(s):trametinib (MEKINIST) 2 mg tabTake 1 tablet by mouth once daily.Disp: 30 tabletRfl: 5 dabrafenib (TAFINLAR) 75 mg capTake 2 capsules by mouth twice daily.Disp: 120 capsuleRfl: 5 albuterol HFA (PROAIR HFA) 90 mcg/actuation inhalerInhale 2 Puffs as instructed every 4 hours as needed.Disp: 1 InhalerRfl: 11 ECHO [[id number]] Order #: [id number]: 1 FUTURE Follow-up and Disposition History Recorded Prescriptions as of 09/07/2017 Sig: DOCUSATE SODIUM 100 MG CAPSULE Take 1 capsule by mouth twice* THIAMINE HCL (VITAMIN B1) 100* Take 1 tablet by mouth once d* PREDNISONE 10 MG TABLET Take 1 tablet by mouth once d* PROMETHAZINE 25 MG TABLET Take 1 tablet by mouth every * OMEPRAZOLE 40 MG CAPSULE,MALISSA* Take 1 capsule by mouth once * TRAMADOL 50 MG TABLET EVERY 6 HOURS NEEDED ACETAMINOPHEN 325 MG TABLET Take 650 mg by mouth every 6 * TRAMETINIB 2 MG TABLET Take 1 tablet by mouth once d* DABRAFENIB 75 MG CAPSULE Take 2 capsules by mouth twic* ALBUTEROL SULFATE HFA 90 MCG/* Inhale 2 Puffs as instructed * COMPOUNDED PRESCRIPTION Outpatient Physical therapy f* Problem List As Of Date 09/07/2017 Noted Resolved Cord compression (HCC) [G95.20] INVALID FOR* More... Nicotine use disorder, F17.2 [F17.200] INVALID FOR* Brain metastases (HCC) [C79.31] INVALID FOR* Malignant melanoma (HCC) [C43.9] INVALID FOR* Liver metastases (HCC) [C78.7] INVALID FOR* Fall [W19.XXXA] INVALID FOR*08/13/2017 More... Encounter Status:Closed by AKBAR MCARTHUR DO on 09/07/17 PROGRESS Observed: 09/05/2017 Status: COMPLETED Source: [place] 12:30 PM [facility] REPOSITORY O ID: [id number] Author: Adilene Yanez Service: (none) Author Type: (none) Type: Progress Notes Filed: 09/05/2017 12:31 PM Note Text: Radiology Service Progress Note PATIENT NAME: Delmi Phillips DATE OF SERVICE: September 05, 2017 TIME: 12:30 PM PATIENT IDENTITY VERIFICATION COMPLETED USING TWO (2) METHODS: Patient confirmed name verbally and Date of . PATIENT GENDER DATA: Male PATIENT RELEVANT IMPLANT DATA REVIEWED: Not Applicable CONTRAST INDUCED NEPHROPATHY RISK FACTORS: Patient age > 60 years CREATININE: Creatinine Date Value Ref Range Status 08/15/2017 0.80 0.73 - 1.22 mg/dL Final 08/12/2017 0.57 (L) 0.73 - 1.22 mg/dL Final 08/02/2017 0.70 0.6 - 1.2 mg/dL Final eGFR-All Other Races Date Value Ref Range Status 08/15/2017 >60 . Final Comment: eGFR (Estimated GFR) Units of measure: mL/min/1.73 meters squared eGFR is derived from the reexpressed MDRD Study equation using the following parameters: serum creatinine, age, gender and race. The creatinine assay has been calibrated to be traceable to IDMS. An eGFR <60 mL/min/1.73m2 for >3 months is consistent with chronic kidney disease. Refer to KDOQI guidelines for clinical interpretation. In patients with unstable renal function, e.g. those with acute kidney injury, the eGFR may not accurately reflect actual GFR. eGFR- Date Value Ref Range Status 08/15/2017 >60 Final P.O.C.T. RESULTS: POC done: Yes, See Lab Tab September 05, 2017 RADIOLOGIST NOTIFIED?: No ALLERGIES: Reviewed and unchanged CONTRAST ALLERGY: NO. PERIPHERAL IV ACCESS: Ambulatory: IV type: A peripheral IV was started in the Left lt wrist 22 g with a Angio cath: 22 gauge., Site assessment: Clean,Dry and Intact, Site disposition Discontinued RADIOLOGY DEPARTMENT: CT; Exam(s) Completed: Chest Abdomen Pelvis SIGNED BY: Adilene Elder Ct September 05, 2017 12:[address] ABD/PEL W IVCON Observed: 09/05/2017 Status: F Source: [place] 12:23 PM [facility] REPOSITORY * * *Final Report* * * DATE OF EXAM: Sep 05 2017 12:23PM [facility] 0530 - CT ABD/PEL W IVCON / PROCEDURE REASON: multiple diagnoses * * * * Physician Interpretation * * * * EXAMINATION: CT ABDOMEN AND PELVIS WITH IV CONTRAST CLINICAL HISTORY: Melanoma TECHNIQUE: CT of the abdomen and pelvis was performed using standard technique, scanning from just above the dome of the diaphragm to the symphysis pubis. MQ: CTAP_3 Contrast: IV: 143 ml of Omnipaque 300 Oral: 50 ml of 50ML Omnipaque [address] Radiation dose: Integrated Dose-length product (DLP) for this visit = 672 mGy*cm. CT Dose Reduction Employed: Automated exposure control (AEC) COMPARISON: Outside study 05/25/2017 RESULT: Liver: There are innumerable hepatic lesions which are increased in size and number since the prior examination, for example: * Lateral segment LEFT lobe: 3.7 x 3.3 cm (8:28), previously 2.2 x 1.9 cm * Right lobe posterior to the gallbladder: 2.8 x 2.3 cm (8:43), previously 1.3 x 1.5 cm * Medial posterior RIGHT lobe: 2.8 x 2.2 cm (8:43), previously 1.4 x 1.1 cm Biliary: No bile duct dilation. Gallbladder is unremarkable. Spleen: There are numerable splenic lesions, increased in size and number since earlier exam, for example: * Anterior superior spleen: 3.9 x 3.2 cm (8:11), previously 6 mm. * Inferior spleen: 2.8 x 2.6 cm (8:35) previously 6 mm No splenomegaly. Pancreas: No mass or duct dilation. Adrenals: Bilateral adrenal nodules: * Right adrenal nodule: 2.1 x 1.6 cm (8:38), previously 0.9 x 0.7 cm * Left adrenal nodule: 1.6 x 1.5 cm (8:44), previously 1.1 x 1.0 cm Kidneys: No mass, calculus or hydronephrosis. GI tract: Area of circumferential mural thickening in a proximal small bowel loop on image 96, not previously present is concerning for metastasis. A few other smaller similar areas are seen as well. Lymph nodes: Lymphadenopathy as follows: * Left obturator node: 1.4 x 1.1 cm (8:125), new in the interval * Left mesenteric node: 3.4 x 2.4 cm (8:77), new in the interval Mesentery/Peritoneum: Mesenteric adenopathy described above. No ascites. Retroperitoneum: No mass. Vasculature: Normal caliber aorta. Pelvis: Small bladder nodules are seen, largest 1.5 x 1.2 cm posteriorly (8:129), previously only a few millimeters. Bones/Soft Tissues: No subcutaneous nodules. Sacral soft tissue masses with bony destruction, largest 3.0 x 2.8 cm (8:110), previously 2.8 x 2.3 cm. Lower thorax: A chest CT was performed and will be reported separately. IMPRESSION: PROGRESSION OF DISEASE WITH NEW AND ENLARGING LIVER, SPLEEN, ADRENAL, SMALL BOWEL, ADRENAL, BLADDER, AND SKELETAL METASTASES Senior Piping Designer: MERRY Transcribe Date/Time: Sep 05 2017 5:31P Dictated by : SULMA ROPER MD This examination was interpreted and the report reviewed and electronically signed by: SULMA ROPER MD on Sep 05 2017 5:42PM EST [id number] CT CHEST W IVCON Observed: 09/05/2017 Status: F Source: [place] 12:23 PM [facility] REPOSITORY * * *Final Report* * * DATE OF EXAM: Sep 05 2017 12:23PM [facility] 0539 - CT CHEST W IVCON / PROCEDURE REASON: multiple diagnoses * * * * Physician Interpretation * * * * EXAMINATION: CHEST CT WITH CONTRAST CLINICAL HISTORY: Malignant melanoma of skin, unspecified Malignant melanoma of skin, unspecified Secondary malignant neoplasm of brain Secondary malignant neoplasm of liver and intrahepatic bile duct Technique: Spiral CT acquisition of the chest from the thoracic inlet to the upper abdomen following IV contrast. MQ: CTCWR_5 Contrast: 143 mL Omnipaque [address] Dose-Length Product: 672 mGy*cm CT Dose Reduction Employed: Automated exposure control (AEC) Comparison: CT chest on 05/11/2017 RESULT: Limitations: None. Lines, tubes, and devices: None. Lung parenchyma and pleura: The central airways are patent. There are innumerable solid pulmonary nodules with variable sizes in the bilateral lungs measuring up to 2 cm. There is interval significant increase in size of many pulmonary nodules. Small groundglass opacities in the right upper lobe, likely inflammatory/infectious process. No pleural effusions or pneumothorax. Thoracic inlet, heart, and mediastinum: Stable thyroid gland. A few subcentimeter axillary lymph nodes appear prominent on the current study. There are stable subcentimeter mediastinal lymph nodes however there is a 1.7 cm right hilar lymph node, series 4 image 94. The thoracic aorta, central pulmonary arteries and cardiac chambers have been stable, without pericardial effusion/thickening. A medium-sized hiatal hernia is present. Bones and soft tissues: Interval left anterior chest wall soft tissue nodule is noted measuring 1.2 cm, series 4 image 106. Interval destructive lesions of T7 vertebral body, with new/worsening compression deformities/fractures of the T4 and T7 vertebral bodies. There is ring like sclerotic change of the T5 vertebral body low-attenuation lesion. These findings are suggestive of interval worsening of bony metastases. Upper abdomen: A dedicated CT abdomen and pelvis was performed concurrently and has been reported separately. IMPRESSION: Interval worsening of metastatic disease in the chest, right hilum and osseous thoracic spine, with new chest wall soft tissue lesion, suggestive of disease progression. T4 and T7 vertebral body compression deformities/fractures. Senior Piping Designer: MERRY Transcribe Date/Time: Sep 06 2017 8:57A Dictated by : CATALINA GARCIA MD This examination was interpreted and the report reviewed and electronically signed by: CATALINA GARCIA MD on Sep 06 2017 4:30PM EST [id number] COMP METABOLIC PANEL Collected: 09/05/2017 Status: F Source: [place] 10:20 AM [facility] [place] REPOSITORY TYPE CODE TESTS RESULT OUT OF REFERENCE UNITS RANGE LAB TP 6.3-8.0 g/dL Low Protein, Total 5.8 LAB ALB 3.9-4.9 g/dL Low Albumin 2.5 LAB CA 8.5-10.2 mg/dL Low Calcium, Total 7.7 LAB TBIL 0.2-1.3 mg/dL Bilirubin, Total 0.7 LAB ALKP 36-108 U/L Alkaline High Phosphatase 291 LAB AST 14-40 U/L AST High 51 LAB GLU 74-99 mg/dL Glucose 84 Result Comment: The [place] [employer] Association (ADA) provides guidance for cutoff values for fasting glucose and random glucose. The ADA defines fasting as no caloric intake for at least 8 hours. Fas ting plasma glucose results between 100 to 125 mg/dL indicate increased risk for diabetes (prediabetes). Fasting plasma glucose results greater than or equal to 126 mg/dL meet the criteria for diagnosis of diabetes. In the absence of unequivocal hyperglycemia, results should be confirmed by repeat testing. In a patient with classic symptoms of hyperglycemia or hyperglycemic crisis, random plasma glucose results greater than or equal to 200 mg/dL meet the criteria for diagnosis of diabetes. Reference: Standards of Medical Care in Diabetes 2016, [place] [employer] Association. Diabetes Care. 2016.39(Suppl 1). LAB BUN 9-24 mg/dL BUN 12 LAB CRET 0.73-1.22 mg/dL Creatinine Low 0.66 LAB NA 136-144 mmol/L Sodium Low 133 LAB K 3.7-5.1 mmol/L Potassium 4.2 LAB CL 97-105 mmol/L Chloride 99 LAB CO2 22-30 mmol/L CO2 Low 21 LAB AGAP 9-18 mmol/L Anion Gap 13 LAB ALT 10-54 U/L ALT 41 LAB GFRAA eGFR- Amer. >60 LAB GFRNAA . eGFR-All Other Races >60 Result Comment: eGFR (Estimated GFR) Units of measure: mL/min/1.73 meters squared eGFR is derived from the reexpressed MDRD Study equation using the following parameters: serum creatinine, age, gender and race. The creatinine assay has been calibrated to be traceable to IDMS. An eGFR <60 mL/min/1.73m2 for >3 months is consistent with chronic kidney disease. Refer to KDOQI guidelines for clinical interpretation. In patients with unstable renal function, e.g. those with acute kidney injury, the eGFR may not accurately reflect actual GFR. Performed By: #### CMP #### [facility] [address] [place], [place] [address] WENDY ABS GR + CBC Collected: 09/05/2017 Status: F Source: [place] 10:19 AM [facility] REPOSITORY TYPE CODE TESTS RESULT OUT OF REFERENCE UNITS RANGE LAB WWBC 3.70-11.00 k/uL Wendy High WBC 11.43 LAB WRBC 4.20-6.00 m/uL Low Wendy RBC 4.15 LAB WHGB 13.0-17.0 g/dL Low [place] Hemoglobin 12.3 LAB WHCT 39.0-51.0 % Low Wendy Hematocrit 36.7 LAB WMCV 80.0-100.0 fL Wendy MCV 88.4 LAB WMCH 26.0-34.0 pg Wendy MCH 29.6 LAB WMCHC 30.5-36.0 g/dL Wendy MCHC 33.5 LAB WRDW 11.5-15.0 % [place] High RDW 19.7 LAB WPLT 150-400 k/uL [place] High Platelet Cnt 427 LAB WMPV 9.0-12.7 fL [place] MPV 9.2 Result Comment: Test performed at: [facility], [address] [place] [address]. LAB ABGRAN 1.45-7.50 k/uL High Absol 9.51 Gran Count PROGRESS Observed: 08/17/2017 Status: COMPLETED Source: [place] 12:15 PM [facility] REPOSITORY HNO ID: [id number] Author: Gladys Perez (Sw) Service: (none) Author Type: [employer] Operator Type: Progress Notes Filed: 08/17/2017 12:16 PM Note Text: Social Work Problem Referral Note INFORMATION/REFERRAL : Delmi Phillips 66 year old male was referred by [facility] Social Work for the following reason(s): Advance Directive - Living Will, DPAHC, DNR PERSONS INTERVIEWED: patient and family - Name: Radha INTERVENTION: Information AND Referral Service Co-ordination Affect/Mood: The patient is noted as appropriate IDENTIFIED PROBLEMS/NEEDS: Advance Directives Intervention/Referral to be provided:No further intervention required IMPRESSION/PLAN: SPIKE met with patient and his spouse to complete Advance Directives. SPIKE faxed copy to [facility] and sent copy to [facility]. Patient has two copies of documents to take home with him. F/U APPOINTMENT: JAYLENE Mead PROGRESS Observed: 08/17/2017 Status: COMPLETED Source: [place] 11:46 AM [facility] REPOSITORY HNO ID: [id number] Author: Akbar Mcarthur Service: (none) Author Type: Physician Type: Progress Notes Filed: 08/18/2017 1:45 PM Note Text: Diagnosis: 1) Metastatic melanoma. HPI: The patient is a 66-year-old male who has a past medical history significant for alcohol dependence who the day after Thanksgiving stumbled when coming down a set of steps. Following that he noticed progressive pain in the left upper chest. He was seen by his primary care physician and underwent a CT scan of the chest on 05/11/2017. That study demonstrated numerous bilateral areas of pleural-based and parenchymal nodularity measuring 2-7 mm in size. There was no calcification or cavitation noted. Ascending aorta was mildly ectatic and measured at 38 mm. There was mild prominence of the central pulmonary artery. In the high posterior) midline dorsal region was in the approximate T2 area there was a subcutaneous soft tissue mass measuring 34 x 25 mm. This was thought to possibly be a large sebaceous cyst. There was a comminuted fracture with approximate 40% volume loss of what appeared to be T4. This involved the left side and relatively blastic in appearance. The patient also underwent a CT scan of the abdomen and pelvis on 05/25/2017. That study demonstrated multiple hypodense nodules in the liver suggestive of diffuse metastatic disease. There were also several peripheral nodules in the spleen that were hypodense suggestive of metastatic changes well. Bladder was mildly distended. The patient was having progressive lower tissue weakness therefore admitted to [facility] 06/04/2017. MRI of the spine: Cervical spine: Focus of marrow signal abnormality at C4 compatible with bony metastasis. ?No pathologic enhancement in the cervical cord. ?Severe degenerative disc disease in the lower cervical spine with Canal stenosis is worst at C5-C6. Thoracic spine: Multiple areas of abnormal marrow signal in the MID thoracic vertebrae. ?T4 is most affected which shows a 50% pathologic compression fracture with abnormal epidural metastatic soft tissue. ?This results in moderate CORD compression at this level without evidence for cord signal abnormality. No evidence of leptomeningeal disease in the thoracic CORD. Lumbar spine: Bony metastasis at the S2 segment. ?Lumbar vertebrae show no evidence of metastatic disease. ?No evidence of leptomeningeal disease. ?Severe neural foraminal stenoses at right L4-L5 and bilateral L5-S1 due to degenerative disc and facet disease. ?No pathologic enhancement involving conus medullaris or cauda equina. Incidentally noted 1.5 cm enhancing lesion in the right lobe of the liver. ?This is suspicious for an additional metastatic focus. He was discharged but presented to emergency room at [facility] a day later with complaints of progressive weakness of the left arm. He was transferred back to [facility] where he underwent a brain MRI that disclosed at least 8 parenchymal brain metastases. His pain was under good control and his spine was thought to be stable for discharge. Plan was for outpatient radiation. Biopsy sample from the liver which was taken during his first hospitalization returned as metastatic melanoma. Previous therapy: 1) WBRT and palliative radiation T2-T5. Current therapy: 1) Keytruda. Presents for ongoing oncologic management. Interim history: Last Tuesday nights patient had onset of rather sudden left- sided weakness. He fell several times in trying to get out of bed. His family to continue main campus. Urgent evaluation with CT scan suggested no acute bleeding or other change. He was already scheduled for outpatient MRI so he was discharged the next day when symptoms resolved. He underwent the MRI. Currently he has no complaints. He still little weak but he is back to baseline. Appetite he describes as being fair. He's because he knows he has to. He's not had any jaundice or right upper quadrant pain. No diarrhea. No rash. Nausea under better control with use of Phenergan. PMH, medications and allergies personally reviewed by me today. Any changes documented in appropriate section. ROS: Constitutional: Denies episodes of fever and night sweats. Neuro: Denies DIAZ, vertigo, dizziness. HEENT: No recent change in voice, vision or hearing. Resp: Denies shortness of breath at rest. CVS: Denies exertional chest pain, PND, orthopnea and LE edema. GI: Denies dysgeusia. Denies symptoms of stomatitis. Denies dysphagia and odynophagia. : Denies dysuria or gross hematuria. No symptoms of bladder outlet obstruction. Endo: Denies hot flashes. Denies polyuria and polydipsia. Denies heat and cold intolerance. Musculoskeletal: See above. Derm: Denies rash. Denies jaundice and diffuse pruritis. Heme: Denies unusual bleeding and unexplained bruising. Psych: Normal mood. PHYSICAL EXAM: Vitals: Blood pressure 128/78, pulse 108, temperature 36.7 ?C (98 ?F), weight 71.4 kg (157 lb 8 oz). Well-appearing and in no acute distress. EYES: Sclerae are anicteric bilaterally. ENT: Oral mucosa is unremarkable. There is no sign of thrush or mucositis. NECK: Supple. LYMPHATIC: There is no palpable cervical, supraclavicular, axillary or inguinal adenopathy. RESPIRATORY: Inspiratory breath sounds are of diminished intensity in all springer. No rales, wheezes or rhonchi. CARDIOVASCULAR: Rhythm is regular. Normal intensity S1/S2. There is no gallop or murmur. ABDOMEN: The abdomen is nondistended. No organomegaly. No tenderness. Extremities: No swelling or edema. SKIN: No jaundice or rash. No petechiae. Large sebaceous cyst mid right upper back. NEUROLOGIC: He is able to now get up on the exam table. He has mild decrease in right sided biceps flexor strength. Leg strength appears globally diminished but symmetric bilaterally. DTRs are normal. MUSCULOSKELETAL: No muscle wasting. ASSESSMENT/PLAN: (C43.9) Malignant melanoma, unspecified site (HCC) (primary encounter diagnosis) (C78.7) Liver metastases (HCC) (C79.31) Brain metastases (HCC) Assessment: -KPS is 60% -BRAF mutated but not classic V600 mutation. -I personally reviewed MRI. May have a new metastasis in the left centrum semiovale. However this would not account for his recent symptoms and therefore I advised short interval follow-up MRI of the brain in approximately a month. -He continues to tolerate Keytruda very well. -Discussed repeating CT scan after another dose. Plan: -Advised him to continue omeprazole on a daily basis. He will continue Phenergan on a when necessary basis. -As above. Akbar Mcarthur DO CNOVSP Observed: 08/17/2017 Status: COMPLETED Source: [place] 11:30 AM [facility] REPOSITORY Visit (SP) Office (JOSSY) DELMI PHILLIPS ([id number]) 1950 M Date Time Provider Department 08/17/17 11:30 AM AKBAR MCARTHUR During your visit today, we recorded the following information about you: Temperature Pulse Blood pressure Weight 98 degrees 108/minute 128/78 71.4 kg Chela Young LPN, LPN 08/17/2017 11:53 AM Signed Est. Pt, discuss recent MRI and lab results, tx tomorrow ROB Lin DO 08/18/2017 1:45 PM Signed Diagnosis: 1) Metastatic melanoma. HPI: The patient is a 66-year-old male who has a past medical history significant for alcohol dependence who the day after Thanksgi stumbled when coming down a set of steps. Following that he noticed progressive pain in the left upper chest. He was seen by his primary care physician and underwent a CT scan of the chest on 05/11/2017. That study demonstrated numerous bilateral areas of pleural-based and parenchymal nodularity measuring 2-7 mm in size. There was no calcification or cavitation noted. Ascending aorta was mildly ectatic and measured at 38 mm. There was mild prominence of the central pulmonary artery. In the high posterior) midline dorsal region was in the approximate T2 area there was a subcutaneous soft tissue mass measuring 34 x 25 mm. This was thought to possibly be a large sebaceous cyst. There was a comminuted fracture with approximate 40% volume loss of what appeared to be T4. This involved the left side and relatively blastic in appearance. The patient also underwent a CT scan of the abdomen and pelvis on 05/25/2017. That study demonstrated multiple hypodense nodules in the liver suggestive of diffuse metastatic disease. There were also several peripheral nodules in the spleen that were hypodense suggestive of metastatic changes well. Bladder was mildly distended. The patient was having progressive lower tissue weakness therefore admitted to [facility] 06/04/2017. MRI of the spine: Cervical spine: Focus of marrow signal abnormality at C4 compatible with bony metastasis. ?No pathologic enhancement in the cervical cord. ?Severe degenerative disc disease in the lower cervical spine with Canal stenosis is worst at C5-C6. Thoracic spine: Multiple areas of abnormal marrow signal in the MID thoracic vertebrae. ?T4 is most affected which shows a 50% pathologic compression fracture with abnormal epidural metastatic soft tissue. ?This results in moderate CORD compression at this level without evidence for cord signal abnormality. No evidence of leptomeningeal disease in the thoracic CORD. Lumbar spine: Bony metastasis at the S2 segment. ?Lumbar vertebrae show no evidence of metastatic disease. ?No evidence of leptomeningeal disease. ?Severe neural foraminal stenoses at right L4-L5 and bilateral L5-S1 due to degenerative disc and facet disease. ?No pathologic enhancement involving conus medullaris or cauda equina. Incidentally noted 1.5 cm enhancing lesion in the right lobe of the liver. ?This is suspicious for an additional metastatic focus. He was discharged but presented to emergency room at [facility] a day later with complaints of progressive weakness of the left arm. He was transferred back to [facility] where he underwent a brain MRI that disclosed at least 8 parenchymal brain metastases. His pain was under good control and his spine was thought to be stable for discharge. Plan was for outpatient radiation. Biopsy sample from the liver which was taken during his first hospitalization returned as metastatic melanoma. Previous therapy: 1) WBRT and palliative radiation T2-T5. Current therapy: 1) Keytruda. Presents for ongoing oncologic management. Interim history: Last Tuesday nights patient had onset of rather sudden left- sided weakness. He fell several times in trying to get out of bed. His family to continue [facility]. Urgent evaluation with CT scan suggested no acute bleeding or other change. He was already scheduled for outpatient MRI so he was discharged the next day when symptoms resolved. He underwent the MRI. Currently he has no complaints. He still little weak but he is back to baseline. Appetite he describes as being fair. He's because he knows he has to. He's not had any jaundice or right upper quadrant pain. No diarrhea. No rash. Nausea under better control with use of Phenergan. PMH, medications and allergies personally reviewed by me today. Any changes documented in appropriate section. ROS: Constitutional: Denies episodes of fever and night sweats. Neuro: Denies DIAZ, vertigo, dizziness. HEENT: No recent change in voice, vision or hearing. Resp: Denies shortness of breath at rest. CVS: Denies exertional chest pain, PND, orthopnea and LE edema. GI: Denies dysgeusia. Denies symptoms of stomatitis. Denies dysphagia and odynophagia. : Denies dysuria or gross hematuria. No symptoms of bladder outlet obstruction. Endo: Denies hot flashes. Denies polyuria and polydipsia. Denies heat and cold intolerance. Musculoskeletal: See above. Derm: Denies rash. Denies jaundice and diffuse pruritis. Heme: Denies unusual bleeding and unexplained bruising. Psych: Normal mood. PHYSICAL EXAM: Vitals: Blood pressure 128/78, pulse 108, temperature 36.7 ?C (98 ?F), weight 71.4 kg (157 lb 8 oz). Well-appearing and in no acute distress. EYES: Sclerae are anicteric bilaterally. ENT: Oral mucosa is unremarkable. There is no sign of thrush or mucositis. NECK: Supple. LYMPHATIC: There is no palpable cervical, supraclavicular, axillary or inguinal adenopathy. RESPIRATORY: Inspiratory breath sounds are of diminished intensity in all springer. No rales, wheezes or rhonchi. CARDIOVASCULAR: Rhythm is regular. Normal intensity S1/S2. There is no gallop or murmur. ABDOMEN: The abdomen is nondistended. No organomegaly. No tenderness. Extremities: No swelling or edema. SKIN: No jaundice or rash. No petechiae. Large sebaceous cyst mid right upper back. NEUROLOGIC: He is able to now get up on the exam table. He has mild decrease in right sided biceps flexor strength. Leg strength appears globally diminished but symmetric bilaterally. DTRs are normal. MUSCULOSKELETAL: No muscle wasting. ASSESSMENT/PLAN: (C43.9) Malignant melanoma, unspecified site (HCC) (primary encounter diagnosis) (C78.7) Liver metastases (HCC) (C79.31) Brain metastases (HCC) Assessment: -KPS is 60% -BRAF mutated but not classic V600 mutation. -I personally reviewed MRI. May have a new metastasis in the left centrum semiovale. However this would not account for his recent symptoms and therefore I advised short interval follow-up MRI of the brain in approximately a month. -He continues to tolerate Keytruda very well. -Discussed repeating CT scan after another dose. Plan: -Advised him to continue omeprazole on a daily basis. He will continue Phenergan on a when necessary basis. -As above. Akbar Mcarthur DO Referring Provider: AKBAR MCARTHUR [[id number]] Allergies As of Date: 08/17/2017 Noted Allergy Reaction SULFA (SULFONAMIDE ANTIBIOTICS) 08/25/2011 2 - Rash TIZANIDINE 06/04/2017 8 - GI Upset Date Reviewed: 08/17/2017 Reviewed by: Chela Nuñez (Rob) ROB Young - Fully Assessed Reason for Visit: Established Patient [[id number]] Primary Visit Diagnosis:Malignant melanoma, unspecified site (HCC) [C43.9] Other Visit Diagnoses:Malignant melanoma of skin (HCC) [C43.9] Brain metastases (HCC) [C79.31] Liver metastases (HCC) [C78.7] Order(s):CT ABD/PEL W IVCON [[id number]] Order #: [id number] FUTURE CT CHEST W IVCON [[id number]] Order #: [id number] FUTURE iv contrast (will be provided with radiology test)CT Chest ABD/PEL-Inject, intravenously, once for 1 dose.No IV access, insert saline lock prior to the beginning of sedation, infusion, injection of imaging exam. Discontinue saline lock post exam. If Pt. has a central line or IVAD, may access for administration according to line specific nursing protocol. Once exam is complete flush line and de-access according to line specific nursing protocol in the CT contrast administration guidelines link.Disp: 1 EachRfl: 0 enteric contrast (will be provided with radiology test)For CT CHESTABD/PEL W IVCON Routine order Administer, As Directed One Time Only, via Oral, Rectal, both Oral and Rectal, Enteric Tube, Stoma or Indwelling Catheter, Enteric Contrast as designated per enteric contrast guidelinesDisp: 1 EachRfl: 0 Follow-up and Disposition History Recorded Prescriptions as of 08/17/2017 Sig: DOCUSATE SODIUM 100 MG CAPSULE Take 1 capsule by mouth twice* THIAMINE HCL (VITAMIN B1) 100* Take 1 tablet by mouth once d* PREDNISONE 10 MG TABLET Take 1 tablet by mouth once d* PROMETHAZINE 25 MG TABLET Take 1 tablet by mouth every * OMEPRAZOLE 40 MG CAPSULE,MALISSA* Take 1 capsule by mouth once * TRAMADOL 50 MG TABLET EVERY 6 HOURS NEEDED ACETAMINOPHEN 325 MG TABLET Take 650 mg by mouth every 6 * IV CONTRAST (RADIOLOGY PROCED* CT Chest ABD/PEL-Inject, intr* ENTERIC CONTRAST (RADIOLOGY P* For CT CHESTABD/PEL W IVCON R* COMPOUNDED PRESCRIPTION Outpatient Physical therapy f* Problem List As Of Date 08/17/2017 Noted Resolved Cord compression (HCC) [G95.20] INVALID FOR* More... Nicotine use disorder, F17.2 [F17.200] INVALID FOR* Brain metastases (HCC) [C79.31] INVALID FOR* Malignant melanoma (HCC) [C43.9] INVALID FOR* Liver metastases (HCC) [C78.7] INVALID FOR* Fall [W19.XXXA] INVALID FOR*08/13/2017 More... Visit Notes: >> Chela Young LPN TueAugust 17, 2017 11:37 AM Status: Signed Est. Pt, discuss recent MRI and lab results, tx tomorrow Chela Young LPN Encounter Status:Closed by AKBAR MCARTHUR DO on 08/18/17 CNSW Observed: 08/17/2017 Status: COMPLETED Source: [place]ERTS 12:00 AM [facility] REPOSITORY Social Work ([place]) DELMI DEL RIO ([id number]) 1950 M Date Time Provider Department 08/17/17 GLADYS PEREZ) JOSSY During your visit today, we recorded the following information about you: JAYLENE Zavala 08/17/2017 12:16 PM Signed Social Work Problem Referral Note INFORMATION/REFERRAL : Delmi M Alan 66 year old male was referred by [facility] Social Work for the following reason(s): Advance Directive - Living Will, DPAHC, DNR PERSONS INTERVIEWED: patient and family - Name: Radha INTERVENTION: Information AND Referral Service Co-ordination Affect/Mood: The patient is noted as appropriate IDENTIFIED PROBLEMS/NEEDS: Advance Directives Intervention/Referral to be provided:No further intervention required IMPRESSION/PLAN: SPIKE met with patient and his spouse to complete Advance Directives. SPIKE faxed copy to [facility] and sent copy to [facility]. Patient has two copies of documents to take home with him. F/U APPOINTMENT: PRN JAYLENE Zavala Allergies As of Date: 08/17/2017 Noted Allergy Reaction SULFA (SULFONAMIDE ANTIBIOTICS) 08/25/2011 2 - Rash TIZANIDINE 06/04/2017 8 - GI Upset Date Reviewed: 08/17/2017 Reviewed by: Chela Nuñez (Rob) ROB Young - Fully Assessed Reason for Visit: Social Work Services [[id number]] Cmt: Advance Directives Prescriptions as of 08/17/2017 Sig: IV CONTRAST (RADIOLOGY PROCED* CT Chest ABD/PEL-Inject, intr* ENTERIC CONTRAST (RADIOLOGY P* For CT CHESTABD/PEL W IVCON R* DOCUSATE SODIUM 100 MG CAPSULE Take 1 capsule by mouth twice* THIAMINE HCL (VITAMIN B1) 100* Take 1 tablet by mouth once d* PREDNISONE 10 MG TABLET Take 1 tablet by mouth once d* PROMETHAZINE 25 MG TABLET Take 1 tablet by mouth every * OMEPRAZOLE 40 MG CAPSULE,MALISSA* Take 1 capsule by mouth once * TRAMADOL 50 MG TABLET EVERY 6 HOURS NEEDED COMPOUNDED PRESCRIPTION Outpatient Physical therapy f* ACETAMINOPHEN 325 MG TABLET Take 650 mg by mouth every 6 * Problem List As Of Date 08/17/2017 Noted Resolved Cord compression (HCC) [G95.20] INVALID FOR* More... Nicotine use disorder, F17.2 [F17.200] INVALID FOR* Brain metastases (HCC) [C79.31] INVALID FOR* Malignant melanoma (HCC) [C43.9] INVALID FOR* Liver metastases (HCC) [C78.7] INVALID FOR* Fall [W19.XXXA] INVALID FOR*08/13/2017 More... Encounter Status:Closed by GLADYS PEREZ on 08/17/17 MRI BRAIN WO/W Observed: 08/15/2017 Status: F Source: [place] IVCON 4:09 PM [facility] [place] REPOSITORY * * *Final Report* * * DATE OF EXAM: Aug 15 2017 4:09PM [facility] [id number] - MRI BRAIN WO/W IVCON / PROCEDURE REASON: multiple diagnoses * * * * Physician Interpretation * * * * EXAMINATION: MRI BRAIN WO/W IVCON HISTORY: History of metastatic melanoma status post whole brain radiation therapy. TECHNIQUE: Routine brain MRI protocol without and with contrast including diffusion images. MQ: [id number] Contrast: 13 mL Dotarem IV COMPARISON: MRI brain 06/09/2017, CT brain outside hospital 07/13/2017 RESULT: Acute Change: There is no evidence of restricted diffusion to suggest an acute infarct. Hemorrhage: Foci of gradient echo artifact in the right paramedian frontal pole (gradient echo image 11) and left inferior cerebellar peduncle (gradient echo image 25) compatible with remote hemorrhagic blood products from hemorrhagic metastases. Additional foci of previously noted susceptibility artifact, for example in the right frontal centrum semiovale and right frontal operculum are better noted on the susceptibility weighted images on prior exam. Slight overall interval decrease in size and surrounding vasogenic edema of multiple hemorrhagic metastases since prior exam 06/09/2017, seen on axial postcontrast images: - Decreased size of the enhancing lesion in the anterior lateral margin of the right superior frontal gyrus, measuring 3 mm (image 30), previously 4 mm. - Right paramedian frontal pole intrinsically T1 hyperintense lesion measures 1.0 cm (image 46), previously 1.6 cm. - 3 mm enhancing focus in the left paracentral lobule (image 28), previously 5 mm. - Enhancing right frontal operculum lesion measures 8 mm (image 49), previously 1.0 cm, with decreased surrounding vasogenic edema and FLAIR hyperintensity. - Enhancing right subinsular lesion measures 7 mm (image 63), with increased conspicuity of enhancement are since prior exam. Mild associated FLAIR hyperintensity. - 3 mm punctate enhancing focus in the left middle frontal gyrus (image 40), stable in size since prior exam. -Nonenhancing lesion in the left frontal centrum semiovale, not clearly present on the prior exam, measuring 0.9 cm with mild associated FLAIR hyperintensity (image 40). - Increased conspicuity of enhancement of the right frontal opercular lesion measuring 3 mm (image 45), without increased size. - Enhancing hemorrhagic lesion within the left inferior cerebellar peduncle with surrounding T1 hypointensity Previously noted 3 mm nonenhancing lesion in the right parietal cortex and punctate susceptibility focus in the left frontal lobe white matter, are not well visualized on this current exam. No evidence of an extra-axial fluid collection. Mild surrounding FLAIR hyperintensity associated with multiple lesions, but without significant mass effect. Chronic Change: Scattered patchy areas of increased T2 and FLAIR signal are present in the supratentorial white matter which is a nonspecific finding but likely represents mild chronic microvascular ischemia. Parenchyma: No significant volume loss for age. The brain parenchyma is otherwise within normal limits of signal intensity and morphology. Ventricles: Normal caliber and morphology. Skull Base: Hypothalamic and pituitary region are grossly normal. Craniocervical junction is normal. Scattered focal areas of marrow replacement process throughout the calvarium, are unchanged from the prior exam and may represent intraosseous metastases. No evidence of epidural extraosseous extension. Vasculature: Major intracranial arterial structures, and dural venous sinuses show typical flow void, suggesting patency by spin echo criteria. Other: Right mastoid effusion, not significantly changed. The visualized paranasal sinuses and mastoid air cells are otherwise clear. The orbits and extracranial soft tissues are unremarkable. IMPRESSION: Overall, interval decreased size and surrounding vasogenic edema of multiple hemorrhagic intracranial metastases compared to 06/09/2017. Slight interval increased conspicuity of enhancement in multiple lesions, which may reflect posttreatment change. One new nonenhancing lesion in the left frontal centrum semiovale compared to prior exam. Multiple small foci of marrow replacement process in the calvarium, not significantly changed compared to the prior exam. Senior Piping Designer: MERRY Transcribe Date/Time: Aug 15 2017 4:11P Dictated by : LESVIA FIGUEROA MD This examination was interpreted and the report reviewed and electronically signed by: LESVIA FIGUEROA MD on Aug 15 2017 4:40PM EST [id number] Observed: 08/15/2017 Status: COMPLETED Source: [facility] 3:53 PM [facility] REPOSITORY O ID: [id number] Author: Jose Duong Service: (none) Author Type: (none) Type: Progress Notes Filed: 08/15/2017 3:54 PM Note Text: Radiology Service Progress Note PATIENT NAME: Delmi Phillips DATE OF SERVICE: August 15, 2017 TIME: 3:53 PM PATIENT IDENTITY VERIFICATION COMPLETED USING TWO (2) METHODS: Patient confirmed name verbally and Date of . PATIENT GENDER DATA: Male PATIENT RELEVANT IMPLANT DATA REVIEWED: Yes CONTRAST INDUCED NEPHROPATHY RISK FACTORS: Patient age > 60 years CREATININE: Creatinine Date Value Ref Range Status 08/12/2017 0.57 (L) 0.73 - 1.22 mg/dL Final 08/02/2017 0.70 0.6 - 1.2 mg/dL Final 07/27/2017 0.70 (L) 0.73 - 1.22 mg/dL Final eGFR-All Other Races Date Value Ref Range Status 08/12/2017 >60 . Final Comment: eGFR (Estimated GFR) Units of measure: mL/min/1.73 meters squared eGFR is derived from the reexpressed MDRD Study equation using the following parameters: serum creatinine, age, gender and race. The creatinine assay has been calibrated to be traceable to IDMS. An eGFR <60 mL/min/1.73m2 for >3 months is consistent with chronic kidney disease. Refer to KDOQI guidelines for clinical interpretation. In patients with unstable renal function, e.g. those with acute kidney injury, the eGFR may not accurately reflect actual GFR. eGFR- Date Value Ref Range Status 08/12/2017 >60 Final P.O.C.T. RESULTS: POC done: Yes, See Lab Tab August 15, 2017 RADIOLOGIST NOTIFIED?: No ALLERGIES: Reviewed and unchanged CONTRAST ALLERGY: NO. PERIPHERAL IV ACCESS: Ambulatory: IV type: A peripheral IV was started in the Left antecubital site with a Angio cath: 22 gauge., Site assessment: Clean,Dry and Intact, Site disposition Discontinued RADIOLOGY DEPARTMENT: MR; Exam(s) Completed: Head: Routine Brain SIGNED BY: Shawna Nash Rt August 15, 2017 3:53 PM COMP METABOLIC PANEL Collected: 08/15/2017 Status: F Source: [place] 1:47 PM [facility] [place] REPOSITORY TYPE CODE TESTS RESULT OUT OF REFERENCE UNITS RANGE LAB TP 6.3-8.0 g/dL Low Protein, Total 6.2 LAB ALB 3.9-4.9 g/dL Low Albumin 3.0 LAB CA 8.5-10.2 mg/dL Low Calcium, Total 8.2 LAB TBIL 0.2-1.3 mg/dL Bilirubin, Total 0.7 LAB ALKP 36-108 U/L Alkaline High Phosphatase 248 LAB AST 14-40 U/L AST 35 LAB GLU 74-99 mg/dL Glucose High 141 Result Comment: The [place] [employer] (ADA) provides guidance for cutoff values for fasting glucose and random glucose. The ADA defines fasting as no caloric intake for at least 8 hours. Fas ting plasma glucose results between 100 to 125 mg/dL indicate increased risk for diabetes (prediabetes). Fasting plasma glucose results greater than or equal to 126 mg/dL meet the criteria for diagnosis of diabetes. In the absence of unequivocal hyperglycemia, results should be confirmed by repeat testing. In a patient with classic symptoms of hyperglycemia or hyperglycemic crisis, random plasma glucose results greater than or equal to 200 mg/dL meet the criteria for diagnosis of diabetes. Reference: Standards of Medical Care in Diabetes 2016, [place] [employer]. Diabetes Care. 2016.39(Suppl 1). LAB BUN 9-24 mg/dL BUN 16 LAB CRET 0.73-1.22 mg/dL Creatinine 0.80 LAB NA 136-144 mmol/L Sodium Low 132 LAB K 3.7-5.1 mmol/L Potassium 4.5 LAB CL 97-105 mmol/L Chloride 97 LAB CO2 22-30 mmol/L CO2 Low 20 LAB AGAP 9-18 mmol/L Anion Gap 15 LAB ALT 10-54 U/L ALT 29 LAB GFRAA eGFR- Amer. >60 LAB GFRNAA . eGFR-All Other Races >60 Result Comment: eGFR (Estimated GFR) Units of measure: mL/min/1.73 meters squared eGFR is derived from the reexpressed MDRD Study equation using the following parameters: serum creatinine, age, gender and race. The creatinine assay has been calibrated to be traceable to IDMS. An eGFR <60 mL/min/1.73m2 for >3 months is consistent with chronic kidney disease. Refer to KDOQI guidelines for clinical interpretation. In patients with unstable renal function, e.g. those with acute kidney injury, the eGFR may not accurately reflect actual GFR. Performed By: #### CMP #### [facility] [address] [place], [place] [address] [place] ABS GR + CBC Collected: 08/15/2017 Status: F Source: [place] 1:46 PM [facility] [place] REPOSITORY TYPE CODE TESTS RESULT OUT OF REFERENCE UNITS RANGE LAB WWBC 3.70-11.00 k/uL [place] High WBC 15.91 LAB WRBC 4.20-6.00 m/uL [place] RBC 4.44 LAB WHGB 13.0-17.0 g/dL Low [place] Hemoglobin 12.9 LAB WHCT 39.0-51.0 % Wendy Hematocrit 39.6 LAB WMCV 80.0-100.0 fL [place] MCV 89.2 LAB WMCH 26.0-34.0 pg [place] MCH 29.1 LAB WMCHC 30.5-36.0 g/dL [place] MCHC 32.6 LAB WRDW 11.5-15.0 % [place] High RDW 18.6 LAB WPLT 150-400 k/uL [place] High Platelet Cnt 449 LAB WMPV 9.0-12.7 fL Wendy MPV 9.6 Result Comment: Test performed at: [facility], [address] [place] [address] Rd[address] [place] [address]. LAB ABGRAN 1.45-7.50 k/uL High Absol 14.22 Gran Count CNDS Observed: 08/13/2017 Status: COMPLETED Source: [place] 11:37 AM [facility] [place] REPOSITORY HNO ID: [id number] Author: Jonathan Rubin (Res) Service: Oncology Author Type: Resident Type: Discharge Summaries Filed: 08/13/2017 3:42 PM Note Text: DISCHARGE SUMMARY PATIENT NAME: Delmi Phillips ADMISSION DATE: 08/12/2017 DISCHARGE DATE: 08/13/2017 ATTENDING PHYSICIAN: Allen REASON FOR HOSPITALIZATION: Fall DIAGNOSIS: Active Problems: Cord compression (HCC) Brain metastases (HCC) Malignant melanoma (HCC) Liver metastases (HCC) Resolved Problems: Fall Ruled Out OPERATIONS DURING HOSPITALIZATION: None PROCEDURES DURING HOSPITALIZATION: No procedures performed HOSPITAL COURSE: Mr. Phillips is a 66 year old male with metastatic melanoma (vertebrae, brain, liver, ?lungs) and alcohol dependence who presented with falls and nausea. While inpatient, he was hydrated and nausea was controlled with promethazine. CT scans from outside hospital were reviewed and appeared to show stable lesions without acute edema, which would be better characterized on MRI. Mr. Phillips was deemed stable and discharged with close follow up and MRI. ? Outpatient Management -Reassess for progression of paresthesia or new weakness. -Discuss decreasing alcohol intake, which may worsen cerebellar dysfunction related to known metastasis. Discharged on thiamine. -Consider B12 or B6 deficiency if symptoms continue to worsen. LABS AND PROCEDURES PENDING AT DISCHARGE: No pending results. CONSULTING TEAMS DURING HOSPITALIZATION: None PATIENT CONDITION AT DISCHARGE: Stable DISCHARGE DISPOSITION: Home/Self Care Discharge Physical Exam: VITAL SIGNS: BP 106/70 Pulse 87 Temp 37.1 ?C (98.7 ?F) (Oral) Resp 20 SpO2 93% General: No acute distress. AANDOx3. HEENT: PERRLA. EOMi. [place] moist oral mucosa. Neck: No cervical lymphadenopathy. CV: Regular rate and rhythm. No murmurs or gallops auscultated. Resp: Lungs clear to auscultation bilaterally. No rales, wheezing or rhonchi Abdomen: Soft, nontender, nondistended abdomen. Bowel sounds present. Resonant to percussion in all quadrants Extremities: No pedal edema bilaterally. Neuro: CN II-XII Intact except for diminished hearing in left ear. Nystagmus on L lateral gaze. 5/5 biceps, triceps, wrist flexor/extensor, commercial center manager strength bilaterally 5/5 Right hip flexion/extension/abduction/adduction 4+/5 Left hip flexion/extension/abduction/adduction [id number]-in-[id number] intact AND Heel to fields intact bilaterally. Diminished sensation in left fingers 1-3 to light touch. Remainder of extremities with grossly intact light touch sensation. ? INFORMATION PROVIDED TO PATIENT: (To pull info documented from the DC Instruct Orderset Complete O/S First): None DISCHARGE MEDICATION: Discharge Medication List as of 08/13/2017 11:08 AM START taking these medications docusate sodium (COLACE) 100 mg capsule Take 1 capsule by mouth twice daily as needed. Normal, Disp-60 capsule, R-0 thiamine (VITAMIN B1) 100 mg tablet Take 1 tablet by mouth once daily. Normal, Disp-30 tablet, R-0, Long-term CONTINUE these medications which have NOT CHANGED predniSONE (DELTASONE) 10 mg tablet Take 1 tablet by mouth once daily. Normal, Disp-30 tablet, R-2 promethazine (PHENERGAN) 25 mg tablet Take 1 tablet by mouth every 6 hours as needed. FOR NAUSEA Normal, Disp-30 tablet, R-2 Omeprazole (PRILOSEC) 40 mg capsule Take 1 capsule by mouth once daily. Normal, Disp-30 capsule, R-5, Long-term traMADol (ULTRAM) 50 mg tablet EVERY 6 HOURS NEEDED Historical Med COMPOUNDED PRESCRIPTION Outpatient Physical therapy for weakness due to his metastatic malignancy. Print RX, Disp-1 Each, R-0 As recommended by Physical Therapy Dx: 1. Metastatic melanoma (HCC) acetaminophen (TYLENOL) 325 mg tablet Take 650 mg by mouth every 6 hours as needed. Historical Med FUTURE APPOINTMENTS: Future Appointments Date Time Provider Department Center 08/15/2017 8:00 AM LAB [facility] 08/15/2017 1:40 PM MRI RADIO [facility] (I-STAT/1.5T) [facility] 08/17/2017 11:30 AM [facility]bar Mcarthur [facility] 08/18/2017 2:00 PM TREATMENT RM 4 GIANNI [facility] 09/07/2017 10:15 AM LAB [facility] 09/07/2017 10:30 AM Akbar Mcarthur [facility] 09/08/2017 2:00 PM TREATMENT RM 5 [facility] 10/06/2017 1:00 PM Jaziel [facility] TIME OF CARE (Use first blank if not applicable): TIME OF CARE: Discharge Management: I personally spent less than 30 minutes involved in the discharge management of this patient. SIGNATURE: Jonathan Rubin MD PATIENT NAME: Delmi Phillpis DATE: August 13, 2017 TIME: 3:18 PM PAGER/CONTACT #: [phone] CBC AND DIFFERENTIAL Collected: 08/12/2017 Status: F Source: [place] 3:47 PM [facility] REPOSITORY TYPE CODE TESTS RESULT OUT OF REFERENCE UNITS RANGE LAB WBC 3.70-11.00 k/uL WBC High 11.09 LAB RBC 4.20-6.00 m/uL Low RBC 3.97 LAB HGB 13.0-17.0 g/dL Low Hemoglobin 11.4 LAB HCT 39.0-51.0 % Low Hematocrit 34.8 LAB MCV 80.0-100.0 fL MCV 87.7 LAB MCH 26.0-34.0 pG MCH 28.7 LAB MCHC 30.5-36.0 g/dL MCHC 32.8 LAB RDWCV 11.5-15.0 % RDW-CV High 17.6 LAB PLTCT 150-400 k/uL Platelet Count 386 LAB MPV 9.0-12.7 fL MPV 9.8 LAB ANEUT % Neut% 91.7 LAB AANEUT 1.45-7.50 k/uL Abs Neut High 10.17 LAB ALYMP % Lymph% 3.1 LAB AALYMP 1.00-4.00 k/uL Low Abs Lymph 0.34 LAB AMONO % [place]% 5.0 LAB AAMONO <0.87 k/uL Abs [place] 0.56 LAB AEOS % Eosin% 0.0 LAB AAEOS <0.46 k/uL Abs Eosin <0.03 LAB ABASO % Baso% 0.2 LAB AABASO <0.11 k/uL Abs Baso <0.03 LAB AUNRBC 0 /100 WBC NRBCs 0.0 LAB ABNRBC <0.01 k/uL Absolute nRBC <0.01 LAB DTYP DTYPE Auto Diff Performed By: #### CBCDIF, CMP, MG1, PHOS #### [facility] [address] [place], [place] [address] COMP METABOLIC PANEL Collected: 08/12/2017 Status: F Source: [place] 3:47 PM [facility] REPOSITORY TYPE CODE TESTS RESULT OUT OF REFERENCE UNITS RANGE LAB TP 6.3-8.0 g/dL Low Protein, Total 5.6 LAB ALB 3.9-4.9 g/dL Low Albumin 2.5 LAB CA 8.5-10.2 mg/dL Low Calcium, Total 7.7 LAB TBIL 0.2-1.3 mg/dL Bilirubin, Total 0.7 LAB ALKP 36-108 U/L Alkaline High Phosphatase 228 LAB AST 14-40 U/L AST 31 LAB GLU 74-99 mg/dL Glucose High 109 Result Comment: The [place] Diabetes Association (ADA) provides guidance for cutoff values for fasting glucose and random glucose. The ADA defines fasting as no caloric intake for at least 8 hours. Fas ting plasma glucose results between 100 to 125 mg/dL indicate increased risk for diabetes (prediabetes). Fasting plasma glucose results greater than or equal to 126 mg/dL meet the criteria for diagnosis of diabetes. In the absence of unequivocal hyperglycemia, results should be confirmed by repeat testing. In a patient with classic symptoms of hyperglycemia or hyperglycemic crisis, random plasma glucose results greater than or equal to 200 mg/dL meet the criteria for diagnosis of diabetes. Reference: Standards of Medical Care in Diabetes 2016, [place] [employer]. Diabetes Care. 2016.39(Suppl 1). LAB BUN 9-24 mg/dL BUN 10 LAB CRET 0.73-1.22 mg/dL Creatinine Low 0.57 LAB NA 136-144 mmol/L Sodium Low 133 LAB K 3.7-5.1 mmol/L Potassium 4.0 LAB CL 97-105 mmol/L Chloride 99 LAB CO2 22-30 mmol/L CO2 Low 20 LAB AGAP 9-18 mmol/L Anion Gap 14 LAB ALT 10-54 U/L ALT 22 LAB GFRAA eGFR- Amer. >60 LAB GFRNAA . eGFR-All Other Races >60 Result Comment: eGFR (Estimated GFR) Units of measure: mL/min/1.73 meters squared eGFR is derived from the reexpressed MDRD Study equation using the following parameters: serum creatinine, age, gender and race. The creatinine assay has been calibrated to be traceable to IDME. An eGFR <60 mL/min/1.73m2 for >3 months is consistent with chronic kidney disease. Refer to KDOQI guidelines for clinical interpretation. In patients with unstable renal function, e.g. those with acute kidney injury, the eGFR may not accurately reflect actual GFR. Performed By: #### CBCDIF, CMP, MG1, PHOS #### [facility] [address] [place] [address] MAGNESIUM Collected: 08/12/2017 Status: F Source: [place] 3:47 PM [facility] REPOSITORY TYPE CODE TESTS RESULT OUT OF REFERENCE UNITS RANGE LAB MG 1.7-2.3 mg/dL Magnesium 2.1 Performed By: #### CBCDIF, CMP, MG1, PHOS #### [facility] [address] [address] PHOSPHORUS Collected: 08/12/2017 Status: F Source: [place] 3:47 PM [facility] REPOSITORY TYPE CODE TESTS RESULT OUT OF REFERENCE UNITS RANGE LAB PHOS 2.7-4.8 mg/dL Phosphorus 3.2 Performed By: #### CBCDIF, CMP, MG1, PHOS #### [facility] [address] [address] HISTORY PHYSICAL Observed: 08/12/2017 Status: COMPLETED Source: [place] 12:34 PM [facility] REPOSITORY HNO ID: [id number] Author: Jonathan Rubin (Res) Service: Oncology Author Type: Resident Type: HANDP Filed: 08/12/2017 4:37 PM Note Text: Attestation signed by Martir Villa at 08/13/2017 10:56 AM Staff Note I have reviewed the progress note obtained and documented by the resident physician and I personally participated in the padgett components of care. The following comments revise or confirm relevant padgett components of the note: D/c home with out patient follow up with Dr. Mcarthur. MRI scheduled on Tuesday and f/u with Dr. Mcarthur on 08/17. Martir Villa M.D. Solid Tumor Oncology 1 History and Physical PATIENT NAME: Delmi Phillips SERVICE DATE: 08/12/2017 SERVICE TIME: 12:34 PM Outpatient Oncologist: Dr. Akbar Mcarthur PRIMARY TEAM: Solid Tumor Oncology 1 Weekdays 7 am to 5 pm/Weekend 7 am to 3 pm: Page [phone] (Jonathan Rubin, PGY-1) Weekdays 5 pm to 7 am/Weekend 3 pm to 7 am: Heme/Onc Particle Board Supervisor Pager [phone] Chief Complaint Fall History of Presenting Illness Mr. Phillips is a 66 year old male with metastatic melanoma (vertebrae, brain, liver, ?lungs) and ETOH dependence presents with falls x 5. Approximately midnight prior to admission, he was rising from bed and fell as his left side gave out. He subsequently tried to rise but fell again, which recurred throughout the night 5 times in total. Predisposed to falling on his left side. He did not hit his head or lose consciousness. His left leg and arm feel different but no difficulty with gripping objects or moving extremities. He has stress urinary incontinence and incontinence in which he does not feel the urge to urinate since starting radiation. No change in urinary incontinence in past 2 days. No bowel incontinence. He felt intermittent lightheadedness x 1 day. He also endorses productive cough with clear sputum x 9 days with dyspnea on exertion for past 2 weeks. No leg swelling. No palpitations, chest pain, irregular heart beat, or feeling of warmth.No headache, vision changes, tongue biting, sudden fecal/urinary incontinence, tonic/clonic movements. At in [place]: No leukocytosis, Hgb 11, negative troponin x1, rapid flu negative CXR with multiple bilateral pulmonary nodules CT Brain: No midline shift. L posterior fossa lesion 1.2x 0.8 x1. Possible remote lacunar infarct and chronic microvascular change On prednisone 10 mg. At baseline may have some difficulty hearing from left ear. Hx of ETOH dependence, up to 8 beers a day previously. Recently has had 2-3 months without alcohol and started 3 drinks daily in the past few weeks. Last drink on 08/11. No history of seizures, hallucinations. Oncologic history -03/2017 Stumbled when coming down a set of steps. Progressive left upper chest pain. 05/11/2017 CT scan of the chest: Numerous bilateral areas of pleural-based and parenchymal nodularity measuring 2-7 mm in size. No calcification or cavitation noted. In the high posterior midline dorsal region was in the approximate T2 area there was a subcutaneous soft tissue mass measuring 34 x 25 mm, likely large sebaceous cyst. Comminuted fracture with approximate 40% volume loss of what appeared to be T4. This involved the left side and relatively blastic in appearance. 05/25/2017 CT scan of the abdomen and pelvis: Multiple hypodense nodules in the liver suggestive of diffuse metastatic disease. Several peripheral nodules in the spleen that were hypodense suggestive of metastatic changes well. Bladder was mildly distended Review of Systems PAIN ASSESSMENT: Negative for pain GENERAL: No weight loss, malaise or fevers HEENT: Negative for frequent or significant headaches. No changes in vision. Baseline left hearing impairment NECK: Negative for lumps RESPIRATORY: Positive for cough. No hemoptysis, wheezing CARDIOVASCULAR: Dyspnea on exertion. Negative for chest pain, leg swelling, or palpitations GI: No nausea, vomiting, at present. BM every 2 days. : No history of dysuria, frothy urine, frequency or incontinence MUSCULOSKELETAL: Negative for back pain NEURO: No history of headaches, syncope, paralysis, seizures Family/Medical/Surgical/Social Hx FAMILY HISTORY Problem Relation Age of Onset - Cancer Father esophagus - Cancer Brother bladder, lung No past medical history on file. PAST SURGICAL HISTORY Procedure Laterality Date - PAST SURGICAL HISTORY OF 2004 bilateral knee replacement Social History Marital status: Spouse name: Years of education: Number of children: Social History Main Topics Smoking status: Never Smoker Smokeless tobacco: Current User Types: Snuff Alcohol use: Yes 45.0 oz/week Cans of Beer (12oz): 30 per week Drug use: No Medications/Allergies predniSONE (DELTASONE) 10 mg tablet Take 1 tablet by mouth once daily. promethazine (PHENERGAN) 25 mg tablet Take 1 tablet by mouth every 6 hours as needed. FOR NAUSEA Omeprazole (PRILOSEC) 40 mg capsule Take 1 capsule by mouth once daily. traMADol (ULTRAM) 50 mg tablet EVERY 6 HOURS NEEDED COMPOUNDED PRESCRIPTION Outpatient Physical therapy for weakness due to his metastatic malignancy. acetaminophen (TYLENOL) 325 mg tablet Take 650 mg by mouth every 6 hours as needed. Sulfa (Sulfonamide Antibiotics); Tizanidine Physical Exam Patient Vitals for the past 48 hrs: BP Temp Temp src Pulse Resp SpO2 08/12/17 1027 143/90 36.6 ?C (97.8 ?F) Oral 77 18 94 % Temp Av.6 ?C (97.8 ?F) Min: 36.6 ?C (97.8 ?F) Max: 36.6 ?C (97.8 ?F) Pulse Av Min: 77 Max: 77 No Data Recorded Cuff BP Min: 143/90 Max: 143/90 There is no height or weight on file to calculate BMI. BP 128/86 Pulse 89 Temp 36.4 ?C (97.5 ?F) (Oral) Resp 18 SpO2 96% Intake/Output 08/11/17 0700 - 08/12/17 0659 08/12/17 0700 - 08/13/17 0659 Intake (ml) -- -- Output (ml) 0 300 Net (ml) 0 -300 General: No acute distress. AANDOx3. HEENT: PERRLA. EOMi. [place] moist oral mucosa. Neck: No cervical lymphadenopathy. CV: Regular rate and rhythm. No murmurs or gallops auscultated. Resp: Lungs clear to auscultation bilaterally. No rales, wheezing or rhonchi Abdomen: Soft, nontender, nondistended abdomen. Bowel sounds present. Resonant to percussion in all quadrants Extremities: No pedal edema bilaterally. Neuro: CN II-XII Intact except for diminished hearing in left ear. Nystagmus on L lateral gaze. 5/5 biceps, triceps, wrist flexor/extensor, commercial center manager strength bilaterally 5/5 Right hip flexion/extension/abduction/adduction 4+/5 Left hip flexion/extension/abduction/adduction [id number] intact AND Heel to fields intact bilaterally. Diminished sensation in left fingers 1-3 to light touch. Remainder of extremities with grossly intact light touch sensation. Labs CBC:No results for input(s): WBC, HB, HCT, PLT, MCV, RDWCV, NEUTP, ABSNEUT, LYMPHP, MONOP, EODINP in the last 168 hours. COAG: No results for input(s): APTT, INR in the last 168 hours. BMP: No results for input(s): GLUC, NA, K, CHLOR, CO2, ANION, BUN, CREAT in the last 168 hours. CHEM: No results for input(s): ALB, TPROT, CA, MG in the last 168 hours. HEPATIC: No results for input(s): ALKPHOS, ALT, AST, TBILI, LIPASE in the last 168 hours. URINALYSIS:No results for input(s): PH, SPGR, UGLUC, UBILI, UKET, UHB, UPROT, UROBIL, UWBC, SSA in the last 168 hours. Invalid input(s): NITR CARDIAC: No results for input(s): CKTEST, CKMB, CKMBP, TROPT, PBNP in the last 168 hours. Data Most recent labs and imaging results. Assessment and Plan Mr. Phillips is a 66 year old male with metastatic melanoma on pembrolizumab AND radiation therapy presenting with fall, which may be progression of metastases. No signs of cerebral edema or midline shift on outside hospital CT Active Hospital Problems Diagnosis - Fall History of brain mets and alcohol dependence OSH CT does not show hemorrhage or midline shift Plan Outpatient MRI Orthostatic vitals Physical therapy eval Thiamine - Liver metastases (HCC) - Brain metastases (HCC) - Malignant melanoma (HCC) - Cord compression (HCC) - Found on MRI at level T4 - Predominantly normal neurological exam Plan Outpatient MRI Continue home dose prednisone MAINTENANCE: # Diet - Regular # VTE PPx - enoxaparin # GI PPx -omeprazole # IVF's -None # Dispo Planning - Home with no anticipated needs # Code Status - Full SIGNATURE: Jonathan Rubin MD PATIENT NAME: Delmi Phillips DATE: August 12, 2017 TIME: 12:34 PM PAGER: [phone] Note: These recommendations are not final until staffed by provider PLAN OF CARE Observed: 08/12/2017 Status: COMPLETED Source: [place] 10:49 AM [facility] REPOSITORY HNO ID: [id number] Author: Rio German (Res) Service: Oncology Author Type: Resident Type: Plan of Care Filed: 08/12/2017 10:50 AM Note Text: Mr Phillips will be admitted to Solid oncology team. History/Assement and plan to follow.please page [phone] for any questions. Thanks Rio german MD PGY 2 Internal Medicine Pager: [phone] August 12, 2017 10:50 AM INFLUENZA A&B AG Collected: 08/12/2017 Status: F Source: SCIENTOLOG[facility] 5:43 AM [facility] REPOSITORY TYPE CODE TESTS RESULT OUT OF REFERENCE UNITS RANGE LAB [id number](L Negative OINC) Normal Influenzae A Ag Negative Result Comment: A negative test result does not exclude infection with influenza A and B. Therefore, the results obtained should be used in conjunction with clinical findings to make an accurate diagnosis. LAB [id number](LOINC) Negative Normal Influenzae B Ag Negative Performed By: #### [id number] #### YEISON Misc Micro SubSection , UA COMPLETE Collected: 08/12/2017 Status: F Source: SCIENTOLOGY 5:42 AM [facility] REPOSITORY TYPE CODE TESTS RESULT OUT OF RANGE REFERENCE UNITS LAB [id number]( Yellow LOINC) Normal UA Color Yellow LAB [id number]( Clear LOINC) Normal UA Clarity Clear LAB [id number]( Negative LOINC) Normal UA Glucose Negative LAB [id number]( Negative LOINC) Normal UA Bili Negative LAB [id number]( Negative LOINC) Normal UA Ketones Negative LAB [id number]( 1.003-1.030 LOINC) Normal UA Spec Grav 1.008 LAB [id number]( 4.6-8.0 LOINC) Normal UA pH 6.0 LAB [id number]( Negative LOINC) Normal UA Protein Negative LAB [id number]( LOINC) Normal UA Urobilinogen Negative LAB [id number]( Negative LOINC) Normal UA Nitrite Negative LAB [id number]( Negative LOINC) UA Blood Abnormal 1+ LAB [id number]( Negative LOINC) Normal UA Leuk Est Negative LAB [id number]( 0-3 /HPF LOINC) UA RBC Abnormal 10-20 LAB [id number]( 0-5 /HPF LOINC) Normal UA Squam Epithelial 0-5 LAB [id number]( Trace /LPF LOINC) UA Mucous Abnormal Trace Performed By: #### [id number] #### YEISON Urinalysis Automated Subsection [facility] [place] [address] Observed: 08/12/2017 Status: F Source: [facility] BLOOD 3:48 AM [facility] REPOSITORY Final Report: No growth at 5 Days Performed By: #### [id number] #### YEISON Microbiology Automated Subsection [address] [place] [address] LACTIC ACID Collected: 08/12/2017 Status: F Source: SCIENTOLOGY 3:45 AM [facility] REPOSITORY TYPE CODE TESTS RESULT OUT OF RANGE REFERENCE UNITS LAB [id number](LO 0.5-2.2 mmol/L INC) Normal Lactic Acid 1.4 Lvl Performed By: #### [id number] #### YEISON [employer] [address] [place] [address] Observed: 08/12/2017 Status: F Source: [facility] BLOOD 3:45 AM [facility] REPOSITORY Final Report: No growth at 5 Days Performed By: #### [id number] #### YEISON Microbiology Automated Subsection [address] [place] [address] PT Collected: 08/12/2017 Status: F Source: SCIENTOLOGY 2:48 AM [facility] REPOSITORY TYPE CODE TESTS RESULT OUT OF RANGE REFERENCE UNITS LAB [id number](LO 1.0-1.2 INC) Normal INR 1.2 Result Comment: INR Recommended Therapeuptic Ranges: Prophylaxis/treatment of DVT and PE?2.0-3.0 Prevention of systemic embolism?.2.0-3.0 Mechanical prosthetic values?2.5-3.5 CRITICAL VALUES?.>4.0 LAB [id number](LOINC) 11.6-14.6 second(s) Normal 14.3 PT Performed By: #### [id number] #### YEISON Hematology Automated Subsection [address] [place] [address] PTT Collected: 08/12/2017 Status: F Source: SCIENTOLOGY 2:48 AM [facility] REPOSITORY TYPE CODE TESTS RESULT OUT OF RANGE REFERENCE UNITS LAB [id number](LO 23.2-36.4 second(s) INC) Normal PTT 31.5 Performed By: #### [id number] #### YEISON Hematology Automated Subsection [address] [place] [address] PTT CONTROL RATIO Collected: 08/12/2017 Status: F Source: SCIENTOLOGY 2:48 AM [facility] REPOSITORY Order Comment: Order added by Discern Expert. TYPE CODE TESTS RESULT OUT OF RANGE REFERENCE UNITS LAB [id number](LO 0.8-1.2 ratio INC) Normal PTT Ratio 1.1 Performed By: #### [id number] #### YEISON Hematology Automated Subsection [address] [place] [address] TROPONIN-I Collected: 08/12/2017 Status: F Source: SCIENTOLOGY 2:48 AM [facility] REPOSITORY TYPE CODE TESTS RESULT OUT OF RANGE REFERENCE UNITS LAB [id number](LO .00-.03 ng/mL INC) Normal <.01 Troponin-I Performed By: #### [id number] #### YEISON [employer] [address] [place] [address] CK Collected: 08/12/2017 Status: F Source: SCIENTOLOGY 2:48 AM [facility] REPOSITORY TYPE CODE TESTS RESULT OUT OF RANGE REFERENCE UNITS LAB [id number](LO 26-140 Int._Unit/L INC) Normal Total CK 34 Performed By: #### [id number] #### YEISON [employer] [address] [place] [address] HEP FUNC PANEL Collected: 08/12/2017 Status: F Source: SCIENTOLOGY 2:48 AM [facility] REPOSITORY TYPE CODE TESTS RESULT OUT OF RANGE REFERENCE UNITS LAB [id number](L 10-40 Int._Unit/L OINC) Normal ALT 23 LAB [id number](L 10-42 Int._Unit/L OINC) Normal AST 30 LAB [id number](L 3.2-5.0 G/DL OINC) Low Albumin Lvl 2.5 LAB [id number](L 2.0-4.0 G/DL OINC) Normal Globulin 2.9 LAB [id number](L 1.1-1.9 ratio OINC) Low A/G Ratio 0.9 LAB [id number](L 42-121 Int._Unit/L OINC) High Alk Phos 208 LAB [id number](L .00-.20 mg/dL OINC) High Bili Direct .21 LAB [id number](L OINC) Normal Bili Indirect 0.8 Result Comment: No established ranges available for the Indirect Biliruben. LAB [id number](LOINC) 0.2-1.0 mg/dL Normal Bili Total 1.0 LAB [id number](LOINC) 6.4-8.3 G/DL Low Total Protein 5.4 Performed By: #### [id number] #### YEISON [employer] [facility] [place] [address] CKMB Collected: 08/12/2017 Status: F Source: SCIENTOLOGY 2:48 AM [facility] REPOSITORY TYPE CODE TESTS RESULT OUT OF RANGE REFERENCE UNITS LAB [id number](LO 0.0-5.0 ng/mL INC) Normal CK MB 2.6 Performed By: #### [id number] #### YEISON [employer] [address] [place] [address] BMP Collected: 08/12/2017 Status: F Source: SCIENTOLOGY 2:48 AM [facility] REPOSITORY TYPE CODE TESTS RESULT OUT OF RANGE REFERENCE UNITS LAB [id number](L 70-99 mg/dL OINC) High Glucose Lvl 137 LAB [id number](L 7-18 mg/dL OINC) BUN Normal 14 LAB [id number](LO 0.6-1.3 mg/dL INC) Normal Creatinine 0.6 LAB [id number](L 5.4-30.0 ratio OINC) Normal BUN/Creat Ratio 23.3 LAB [id number](L 8.4-10.2 mg/dL OINC) Low Calcium Lvl 7.5 LAB [id number](L 136-145 mEq/L OINC) Low Sodium Lvl 132 LAB [id number](L 3.5-5.1 mEq/L OINC) Low Potassium Lvl 3.2 LAB [id number](L 98-107 mEq/L OINC) Chloride Normal 103 LAB [id number](L 24.0-30.0 mEq/L OINC) Low CO2 18.9 Performed By: #### [id number] #### YEISON [employer] [address] [place] [address] EGFR Collected: 08/12/2017 Status: F Source: SCIENTOLOGY 2:48 AM [facility] REPOSITORY Order Comment: Order added by Discern Expert. TYPE CODE TESTS RESULT OUT OF RANGE REFERENCE UNITS LAB [id number](LO mL/min/1.73 INC) m2 Normal eGFR >60 LAB [id number](LO mL/min/1.73 INC) m2 Normal eGFR AA >60 Performed By: #### [id number] #### YEISON [employer] [address] [place], [place] [id number] MANUAL DIFF Collected: 08/12/2017 Status: F Source: SCIENTOLOGY 2:48 AM [facility] REPOSITORY Order Comment: Order Added by Discern Expert. TYPE CODE TESTS RESULT OUT OF RANGE REFERENCE UNITS LAB [id number](L 37-75 % OINC) High Segs Man 92 LAB [id number](L 0-1 OINC) High Band Man 3 LAB [id number](L 14-48 % OINC) Low Lymph Man 3 LAB [id number](L 1-11 % OINC) Normal Monocyte Man 2 LAB [id number](L 0-5 % OINC) Normal Eos Man 0 LAB [id number](L 0-1 % OINC) Normal Basophil Man 0 LAB [id number](L OINC) Normal RBC Morph NORMAL Performed By: #### [id number] #### YEISON [employer] [address] [place] [address] CBC W/ AUTO DIFF Collected: 08/12/2017 Status: F Source: SCIENTOLOGY 2:48 AM [facility] REPOSITORY TYPE CODE TESTS RESULT OUT OF RANGE REFERENCE UNITS LAB [id number](L 3.6-11.0 E3/mcL OINC) Normal WBC 10.9 LAB [id number](L 3.90-6.10 E6/mcL OINC) Low RBC 3.84 LAB [id number](L 13.5-18.0 G/DL OINC) Low Hgb 11.1 LAB [id number](L 42.0-52.0 % OINC) Low Hct 33.8 LAB [id number](L 11.5-14.5 % OINC) High RDW 17.9 LAB [id number](L 27.0-31.0 pg OINC) Normal MCH 29.0 LAB [id number](L 33.0-37.0 G/DL OINC) Low MCHC 32.9 LAB [id number](L 78.0-100.0 fL OINC) Normal MCV 88.0 LAB [id number](L 7.4-11.0 fL OINC) Normal MPV 7.9 LAB [id number](L 130-400 E3/mcL OINC) Normal Platelet 348 Performed By: #### [id number] #### YEISONRick RestrepoPilgr[facility] Psychiatric Centero [facility] [place] [address] ZZPLT MORPH Collected: 08/12/2017 Status: F Source: SCIENTOLOGY 2:48 AM [facility] REPOSITORY TYPE CODE TESTS RESULT OUT OF RANGE REFERENCE UNITS LAB [id number](L OINC) Normal Platelet NORMAL Estimate LAB [id number](L OINC) Normal Platelet Morph ENLARGED Performed By: #### [id number] #### [place] [address] .MANUAL ABS Collected: 08/12/2017 Status: F Source: SCIENTOLOGY 2:48 AM [facility] REPOSITORY Order Comment: Order Added by Discern Expert. TYPE CODE TESTS RESULT OUT OF RANGE REFERENCE UNITS LAB [id number](L 1.4-6.5 10x3/ OINC) High Segs Abs Man 10.0 LAB [id number](L 1.2-3.4 10x3/ OINC) Low Lymph Abs Man 0.3 LAB [id number](L 0.0-0.7 10x3/ OINC) Normal [place] Abs Man 0.2 LAB [id number](L 0.0-0.5 10x3/ OINC) Normal Eos Abs Man 0.0 LAB [id number](L 0.0-0.2 10x3/ OINC) Normal Basophil Abs 0.0 Man Performed By: #### [id number] #### YEISONRick RestrepoIForemo [address] [place] [address] XR CHEST AP PORTABLE Observed: 08/12/2017 Status: F Source: SCIENTOLOGY 2:02 AM [facility] REPOSITORY Exam Date/Time: 08/12/2017 02:06 EDT Reason for Exam: Chest pain Report XR Chest AP Portable HISTORY: Chest pain. COMPARISON: Correlation is made with a CT of the chest 05/11/2017. FINDINGS: Single portable AP view of the chest is provided. The cardiomediastinal silhouette is unremarkable. There are innumerable nodules present throughout both lungs which clearly have progressed in size compared with previous CT imaging of 05/11/2017. Previous CT also demonstrated a destructive lesion at the T4 vertebral body, poorly depicted by portable chest radiograph. Bones otherwise appear unremarkable. No pleural effusion or pneumothorax is identified. IMPRESSION: There are numerous pulmonary nodules present throughout both lungs, clearly progressed in size compared with imaging 05/11/2017. These lesions are considered highly suspicious for numerous metastases. Furthermore, previous CT of May demonstrated a destructive lesion at the T4 vertebral body, most consistent with spinal metastasis. There appeared to be a significant soft tissue component of this process on previous CT imaging with invasion of the spinal canal. Correlation with history is required. FINAL REPORT Dictated: 08/12/2017 6:25 am Ronaldo Seo MD Signed (Electronic Signature): 08/12/2017 6:25 am Signed by: Ronaldo Seo MD Technologist: MEM CR-XR CHEST AP Observed: 08/12/2017 Status: F Source: [place] PORTABLE IMPORT 12:00 AM [facility] REPOSITORY Images were obtained outside of [facility] [id number] CT-CT BRAIN(ED Observed: 08/12/2017 Status: F Source: [place] ONLY-STROKE PROTOCOL) 12:00 AM [facility] IMPORT REPOSITORY Images were obtained outside of [facility] [id number] PROGRESS Observed: 08/05/2017 Status: COMPLETED Source: [place] 10:03 AM [facility] REPOSITORY HNO ID: [id number] Author: Gladys Perez (Spike) Service: (none) Author Type: [employer] Operator Type: Progress Notes Filed: 08/05/2017 10:06 AM Note Text: SOCIAL WORK FOLLOW UP NOTE: [facility] Date of service: August 05, 2017 Delmi Phillips is being seen for a follow up social work visit. Today's visit includes: spouse TOPICS ADDRESSED: coping/support; SPIKE called patient to follow- up from initial assessment. Patient's answered the phone and stated patient was unavailable. Patient's states patient is doing much better since getting hydration on Tuesday. She states that patient has been trying to drink Boost, but doesn't like the taste of it so he has been drinking Gatorade. SPIKE encouraged patient's to have him drink any type of liquid that he can keep down. SPIKE asked that she stop by when they are in the office next so SW can provide her with a list of different recipes provided by our simplex printer installer. SPIKE also encouraged her to stop by to complete Advance Directives. She is agreeable. PLAN: Communicate pertinent medical/psychosocial information to Cancer Center team, Continue follow up as needed and Provide emotional support to patient/family F/U APPOINTMENT: JAYLENE Mead Observed: 08/05/2017 Status: COMPLETED Source: KAREN 12:00 AM [facility] REPOSITORY Social Work (JOSSY) DELMI PHILLIPS ([id number]) 1950 M Date Time Provider Department 08/05/17 GLADYS PEREZ (SW) During your visit today, we recorded the following information about you: Gladys Perez) 08/05/2017 10:06 AM Signed SOCIAL WORK FOLLOW UP NOTE: [facility]CER CENTER Date of service: August 05, 2017 Delmi Phillips is being seen for a follow up social work visit. Today's visit includes: spouse TOPICS ADDRESSED: coping/support; SPIKE called patient to follow- up from initial assessment. Patient's answered the phone and stated patient was unavailable. Patient's states patient is doing much better since getting hydration on Tuesday. She states that patient has been trying to drink Boost, but doesn't like the taste of it so he has been drinking Gatorade. SPIKE encouraged patient's to have him drink any type of liquid that he can keep down. SPIKE asked that she stop by when they are in the office next so SPIKE can provide her with a list of different recipes provided by our simplex printer installer. SW also encouraged her to stop by to complete Advance Directives. She is agreeable. PLAN: Communicate pertinent medical/psychosocial information to Cancer Center team, Continue follow up as needed and Provide emotional support to patient/family F/U APPOINTMENT: JAYLENE Mead Allergies As of Date: 08/05/2017 Noted Allergy Reaction SULFA (SULFONAMIDE ANTIBIOTICS) 08/25/2011 2 - Rash TIZANIDINE 06/04/2017 8 - GI Upset Date Reviewed: 08/02/2017 Reviewed by: Gretchen Lane (Kathe) - Fully Assessed Reason for Visit: Social Work Services [507] Cmt: follow up Prescriptions as of 08/05/2017 Sig: PREDNISONE 10 MG TABLET Take 1 tablet by mouth once d* PROMETHAZINE 25 MG TABLET Take 1 tablet by mouth every * OMEPRAZOLE 40 MG CAPSULE,MALISSA* Take 1 capsule by mouth once * TRAMADOL 50 MG TABLET EVERY 6 HOURS NEEDED COMPOUNDED PRESCRIPTION Outpatient Physical therapy f* ACETAMINOPHEN 325 MG TABLET Take 650 mg by mouth every 6 * Problem List As Of Date 08/05/2017 Noted Resolved Cord compression (HCC) [G95.20] INVALID FOR* More... Nicotine use disorder, F17.2 [F17.200] INVALID FOR* Brain metastases (HCC) [C79.31] INVALID FOR* Malignant melanoma (HCC) [C43.9] INVALID FOR* Liver metastases (HCC) [C78.7] INVALID FOR* Encounter Status:Closed by GLADYS PEREZ on 08/05/17 PROGRESS Observed: 08/02/2017 Status: COMPLETED Source: [place] 11:15 AM [facility] REPOSITORY O ID: [id number] Author: Gretchen (Kathe) Ariana Service: (none) Author Type: Nurse Practitioner Type: Progress Notes Filed: 08/03/2017 12:45 PM Note Text: Chief Complaint Patient presents with: Established Patient HPI: Delmi Phillips is a 66 year old male who presents here today for complaint(s) of nausea and vomiting since radiation. Per Dr. Mcarthur's previous note: H/o alcohol dependence who the day after Thanksgiving stumbled when coming down a set of steps. Following that he noticed progressive pain in the left upper chest. He was seen by his primary care physician and underwent a CT scan of the chest on 05/11/2017. That study demonstrated numerous bilateral areas of pleural-based and parenchymal nodularity measuring 2-7 mm in size. There was no calcification or cavitation noted. Ascending aorta was mildly ectatic and measured at 38 mm. There was mild prominence of the central pulmonary artery. In the high posterior) midline dorsal region was in the approximate T2 area there was a subcutaneous soft tissue mass measuring 34 x 25 mm. This was thought to possibly be a large sebaceous cyst. There was a comminuted fracture with approximate 40% volume loss of what appeared to be T4. This involved the left side and relatively blastic in appearance. The patient also underwent a CT scan of the abdomen and pelvis on 05/25/2017. That study demonstrated multiple hypodense nodules in the liver suggestive of diffuse metastatic disease. There were also several peripheral nodules in the spleen that were hypodense suggestive of metastatic changes well. Bladder was mildly distended. ? The patient was having progressive lower tissue weakness therefore admitted to [facility] 06/04/2017. ? MRI of the spine: ? Cervical spine: Focus of marrow signal abnormality at C4 compatible with bony metastasis. ?No pathologic enhancement in the cervical cord. ?Severe degenerative disc disease in the lower cervical spine with Canal stenosis is worst at C5-C6. Thoracic spine: Multiple areas of abnormal marrow signal in the MID thoracic vertebrae. ?T4 is most affected which shows a 50% pathologic compression fracture with abnormal epidural metastatic soft tissue. ?This results in moderate CORD compression at this level without evidence for cord signal abnormality. No evidence of leptomeningeal disease in the thoracic CORD. Lumbar spine: Bony metastasis at the S2 segment. ?Lumbar vertebrae show no evidence of metastatic disease. ?No evidence of leptomeningeal disease. ?Severe neural foraminal stenoses at right L4-L5 and bilateral L5-S1 due to degenerative disc and facet disease. ?No pathologic enhancement involving conus medullaris or cauda equina. Incidentally noted 1.5 cm enhancing lesion in the right lobe of the liver. ?This is suspicious for an additional metastatic focus. ? He was discharged but presented to emergency room at [facility] a day later with complaints of progressive weakness of the left arm. He was transferred back to [facility] where he underwent a brain MRI that disclosed at least 8 parenchymal brain metastases. His pain was under good control and his spine was thought to be stable for discharge. Plan was for outpatient radiation. ? Biopsy sample from the liver which was taken during his first hospitalization returned as metastatic melanoma. ? Previous therapy: 1) WBRT and palliative radiation T2-T5. ? ? Current therapy:Keytruda? First cycle:07/07/17 ? Pt. was initially given compazine with little relief. After first cycle was changed to zofran with no relief. He began phenergan last night and has not had any n/v today. ? Pt. is here today with his spouse and daughter. Appetite:I have one today. That pill has really helped. Energy level:I don't have much-worse after treatment for about 2 days. Denies fevers. Mouth:denies sores Resp:denies cough or sob Cardiac:denies chest pain/palpitations GI:denies abd pain, +nausea/vomiting-about 3x/day the past few days-none today, occ. constipation :denies dysuria/hematuria Extrem:denies pain Neuro:denies symptoms of neuropathy Skin:denies rashes/lesions Heme:denies bleeding The ROS is otherwise negative. Past medical history, appointments, medications, allergies reviewed. No changes. EXAM: BP 124/84 Pulse 110 Temp 37.1 ?C (98.8 ?F) (Oral) Wt 72.3 kg (159 lb 8 oz) BMI 22.89 kg/m? APPEARANCE Well appearing, alert, in no acute distress, well-hydrated, well nourished. HEART tachy, RRR LUNG clear to auscultation LYMPH NODES No cervical lymphadenopathy, No supraclavicular lymphadenopathy and No axillary lymphadenopathy. ABDOMEN bowel sounds normoactive, no bruits, soft, non-tender, non-distended, without organomegaly or palpable masses EXTREMITIES No edema NEURO Awake, alert and oriented x 3, Normal gait and No involuntary motions. SKIN Skin color, texture, turgor normal, no suspicious rashes or lesions LABS: Component Latest Ref Rng AND Units 07/27/2017 08/02/2017 WBC, [place] 3.70 - 11.00 k/uL 9.54 11.35 (H) RBC, Wendy 4.20 - 6.00 m/uL 4.11 (L) 4.56 Hemoglobin, [place] 13.0 - 17.0 g/dL 11.8 (L) 13.1 Hematocrit, [place] 39.0 - 51.0 % 36.7 (L) 40.6 MCV, [place] 80.0 - 100.0 fL 89.3 89.0 MCH, Wendy 26.0 - 34.0 pg 28.7 28.7 MCHC, [place] 30.5 - 36.0 g/dL 32.2 32.3 RDW, Wendy 11.5 - 15.0 % 16.1 (H) 17.5 (H) Platelet Cnt, [place] 150 - 400 k/uL 334 398 MPV, [place] 9.0 - 12.7 fL 9.2 9.4 Absol Gran Count 1.45 - 7.50 k/uL 7.83 (H) 9.69 (H) Component Latest Ref Rng AND Units 08/02/2017 Sodium 128 - 145 mmol/L 131 Potassium 3.6 - 5.1 mmol/L 3.3 (L) Chloride 98 - 108 mmol/L 101 CO2 18 - 33 mmol/L 27 Creatinine 0.6 - 1.2 mg/dL 0.70 BUN 7 - 22 mg/dL 14 Glucose 73 - 118 mg/dL 146 (H) Calcium 8.0 - 10.3 mg/dL 8.5 Magnesium 1.6 - 2.3 mg/dL 1.9 Anion Gap 9 - 18 mmol/L 3 (L) eGFR- >60 eGFR-All Other Races . >60 ASSESSMENT/PLAN: 1. Malignant melanoma, unspecified site (HCC) - ICD9: 172.9, ICD10: C43.9 (primary diagnosis) 2. Liver metastases (HCC) - ICD9: 197.7, ICD10: C78.7 3. Brain metastases (HCC) - ICD9: 198.3, ICD10: C79.31 - Phenergan seems to be helping with nausea. Likely dehydrated since he has not been able to keep much down. - Reviewed labs with pt. and family members. - Encouraged pt. to take miralax daily. - At the end of the visit the pt did c/o dizziness. - NS 1 liter today and potassium 40mEq-See Wright orders. - Follow up as scheduled. - Pt. aware to call office with any questions/concerns. The patient indicates understanding of these issues and agrees with the plan. Discussed case with Dr. Mcarthur who agrees with treatment plan. Gretchen Lane, SWAGING MACHINE OPERATOR.CARTON MAKER WENDY ABS GR + CBC Collected: 08/02/2017 Status: F Source: [place] 11:00 AM [facility] REPOSITORY TYPE CODE TESTS RESULT OUT OF REFERENCE UNITS RANGE LAB WWBC 3.70-11.00 k/uL [place] High WBC 11.35 LAB WRBC 4.20-6.00 m/uL Wendy RBC 4.56 LAB WHGB 13.0-17.0 g/dL [place] Hemoglobin 13.1 LAB WHCT 39.0-51.0 % Wendy Hematocrit 40.6 LAB WMCV 80.0-100.0 fL Wendy MCV 89.0 LAB WMCH 26.0-34.0 pg [place] MCH 28.7 LAB WMCHC 30.5-36.0 g/dL [place] MCHC 32.3 LAB WRDW 11.5-15.0 % Wendy High RDW 17.5 LAB WPLT 150-400 k/uL Wendy Platelet Cnt 398 LAB WMPV 9.0-12.7 fL Wendy MPV 9.4 Result Comment: Test performed at: [facility], [address] [place] [address]. LAB ABGRAN 1.45-7.50 k/uL High Absol 9.69 Gran Count BMP PLUS [facility] Collected: 08/02/2017 Status: F Source: [place] 11:00 [facility] REPOSITORY TYPE CODE TESTS RESULT OUT OF REFERENCE UNITS RANGE LAB NA 128-145 mmol/L Sodium 131 LAB K 3.6-5.1 mmol/L Low Potassium 3.3 LAB CL 98-108 mmol/L Chloride 101 LAB CO2 18-33 mmol/L CO2 27 LAB CRET 0.6-1.2 mg/dL Creatinine 0.70 LAB BUN 7-22 mg/dL BUN 14 LAB GLU 73-118 mg/dL Glucose High 146 LAB CA 8.0-10.3 mg/dL Calcium, Total 8.5 LAB MG 1.6-2.3 mg/dL Magnesium 1.9 LAB AGAP 9-18 mmol/L Low Anion Gap 3 LAB GFRAA eGFR- >60 Amer. LAB GFRNAA . eGFR-All Other Races >60 Result Comment: eGFR (Estimated GFR) Units of measure: mL/min/1.73 meters squared eGFR is derived from the reexpressed MDRD Study equation using the following parameters: serum creatinine, age, gender and race. The creatinine assay has been calibrated to be traceable to IDME. An eGFR <60 mL/min/1.73m2 for >3 months is consistent with chronic kidney disease. Refer to KDOQI guidelines for clinical interpretation. In patients with unstable renal function, e.g. those with acute kidney injury, the eGFR may not accurately reflect actual GFR. TSH Collected: 08/02/2017 Status: F Source: [place] 11:00 AM [facility] REPOSITORY TYPE CODE TESTS RESULT OUT OF RANGE REFERENCE UNITS LAB TSH 0.400-5.500 uU/mL TSH 3.300 Performed By: #### TSH, COR #### [facility] [address] [place], [place] [address] CORTISOL Collected: 08/02/2017 Status: F Source: [place] 11:00 [facility] REPOSITORY TYPE CODE TESTS RESULT OUT OF REFERENCE UNITS RANGE LAB COR ug/dL Cortisol 29.1 Result Comment: Cortisol Reference Range: AM = 5.3-22.5, PM = 3.4-16.8 Performed By: #### TSH, COR #### [facility] [address] [place], [place] [address] CNOVSP Observed: 08/02/2017 Status: COMPLETED Source: [place] 11:00 [facility] REPOSITORY Visit (SP) Office (HEMAWS) DELMI PHILLIPS ([id number]) 1950 M Date Time Provider Department 08/02/17 11:[address] (KTAHE) JOSSY During your visit today, we recorded the following information about you: Temperature Pulse Blood pressure Weight 98.8 degrees 110/minute 124/[address] APRN.CNP 08/03/2017 12:45 PM Signed Chief Complaint Patient presents with: Established Patient HPI: Delmi Phillips is a 66 year old male who presents here today for complaint(s) of nausea and vomiting since radiation. Per Dr. Mcarthur's previous note: H/o alcohol dependence who the day after Thanksgiving stumbled when coming down a set of steps. Following that he noticed progressive pain in the left upper chest. He was seen by his primary care physician and underwent a CT scan of the chest on 05/11/2017. That study demonstrated numerous bilateral areas of pleural-based and parenchymal nodularity measuring 2-7 mm in size. There was no calcification or cavitation noted. Ascending aorta was mildly ectatic and measured at 38 mm. There was mild prominence of the central pulmonary artery. In the high posterior) midline dorsal region was in the approximate T2 area there was a subcutaneous soft tissue mass measuring 34 x 25 mm. This was thought to possibly be a large sebaceous cyst. There was a comminuted fracture with approximate 40% volume loss of what appeared to be T4. This involved the left side and relatively blastic in appearance. The patient also underwent a CT scan of the abdomen and pelvis on 05/25/2017. That study demonstrated multiple hypodense nodules in the liver suggestive of diffuse metastatic disease. There were also several peripheral nodules in the spleen that were hypodense suggestive of metastatic changes well. Bladder was mildly distended. ? The patient was having progressive lower tissue weakness therefore admitted to [facility]/04/2017. ? MRI of the spine: ? Cervical spine: Focus of marrow signal abnormality at C4 compatible with bony metastasis. ?No pathologic enhancement in the cervical cord. ?Severe degenerative disc disease in the lower cervical spine with Canal stenosis is worst at C5-C6. Thoracic spine: Multiple areas of abnormal marrow signal in the MID thoracic vertebrae. ?T4 is most affected which shows a 50% pathologic compression fracture with abnormal epidural metastatic soft tissue. ?This results in moderate CORD compression at this level without evidence for cord signal abnormality. No evidence of leptomeningeal disease in the thoracic CORD. Lumbar spine: Bony metastasis at the S2 segment. ?Lumbar vertebrae show no evidence of metastatic disease. ?No evidence of leptomeningeal disease. ?Severe neural foraminal stenoses at right L4-L5 and bilateral L5-S1 due to degenerative disc and facet disease. ?No pathologic enhancement involving conus medullaris or cauda equina. Incidentally noted 1.5 cm enhancing lesion in the right lobe of the liver. ?This is suspicious for an additional metastatic focus. ? He was discharged but presented to emergency room at [facility] a day later with complaints of progressive weakness of the left arm. He was transferred back to [facility] where he underwent a brain MRI that disclosed at least 8 parenchymal brain metastases. His pain was under good control and his spine was thought to be stable for discharge. Plan was for outpatient radiation. ? Biopsy sample from the liver which was taken during his first hospitalization returned as metastatic melanoma. ? Previous therapy: 1) WBRT and palliative radiation T2-T5. ? ? Current therapy:Keytruda? First cycle:07/07/17 ? Pt. was initially given compazine with little relief. After first cycle was changed to zofran with no relief. He began phenergan last night and has not had any n/v today. ? Pt. is here today with his spouse and daughter. Appetite:I have one today. That pill has really helped. Energy level:I don't have much-worse after treatment for about 2 days. Denies fevers. Mouth:denies sores Resp:denies cough or sob Cardiac:denies chest pain/palpitations GI:denies abd pain, +nausea/vomiting-about 3x/day the past few days-none today, occ. constipation :denies dysuria/hematuria Extrem:denies pain Neuro:denies symptoms of neuropathy Skin:denies rashes/lesions Heme:denies bleeding The ROS is otherwise negative. Past medical history, appointments, medications, allergies reviewed. No changes. EXAM: BP 124/84 Pulse 110 Temp 37.1 ?C (98.8 ?F) (Oral) Wt 72.3 kg (159 lb 8 oz) BMI 22.89 kg/m? APPEARANCE Well appearing, alert, in no acute distress, well- hydrated, well nourished. HEART tachy, RRR LUNG clear to auscultation LYMPH NODES No cervical lymphadenopathy, No supraclavicular lymphadenopathy and No axillary lymphadenopathy. ABDOMEN bowel sounds normoactive, no bruits, soft, non-tender, non-distended, without organomegaly or palpable masses EXTREMITIES No edema NEURO Awake, alert and oriented x 3, Normal gait and No involuntary motions. SKIN Skin color, texture, turgor normal, no suspicious rashes or lesions LABS: Component Latest Ref Rng AND Units 07/27/2017 08/02/2017 WBC, [place] 3.70 - 11.00 k/uL 9.54 11.35 (H) RBC, [place] 4.20 - 6.00 m/uL 4.11 (L) 4.56 Hemoglobin, Wendy 13.0 - 17.0 g/dL 11.8 (L) 13.1 Hematocrit, [place] 39.0 - 51.0 % 36.7 (L) 40.6 MCV, [place] 80.0 - 100.0 fL 89.3 89.0 MCH, [place] 26.0 - 34.0 pg 28.7 28.7 MCHC, [place] 30.5 - 36.0 g/dL 32.2 32.3 RDW, Wendy 11.5 - 15.0 % 16.1 (H) 17.5 (H) Platelet Cnt, [place] 150 - 400 k/uL 334 398 MPV, [place] 9.0 - 12.7 fL 9.2 9.4 Absol Gran Count 1.45 - 7.50 k/uL 7.83 (H) 9.69 (H) Component Latest Ref Rng AND Units 08/02/2017 Sodium 128 - 145 mmol/L 131 Potassium 3.6 - 5.1 mmol/L 3.3 (L) Chloride 98 - 108 mmol/L 101 CO2 18 - 33 mmol/L 27 Creatinine 0.6 - 1.2 mg/dL 0.70 BUN 7 - 22 mg/dL 14 Glucose 73 - 118 mg/dL 146 (H) Calcium 8.0 - 10.3 mg/dL 8.5 Magnesium 1.6 - 2.3 mg/dL 1.9 Anion Gap 9 - 18 mmol/L 3 (L) eGFR- >60 eGFR-All Other Races . >60 ASSESSMENT/PLAN: 1. Malignant melanoma, unspecified site (HCC) - ICD9: 172.9, ICD10: C43.9 (primary diagnosis) 2. Liver metastases (HCC) - ICD9: 197.7, ICD10: C78.7 3. Brain metastases (HCC) - ICD9: 198.3, ICD10: C79.31 - Phenergan seems to be helping with nausea. Likely dehydrated since he has not been able to keep much down. - Reviewed labs with pt. and family members. - Encouraged pt. to take miralax daily. - At the end of the visit the pt did c/o dizziness. - NS 1 liter today and potassium 40mEq-See Wright orders. - Follow up as scheduled. - Pt. aware to call office with any questions/concerns. The patient indicates understanding of these issues and agrees with the plan. Discussed case with Dr. Mcarthur who agrees with treatment plan. Gretchen Lane APRN.CARTON MAKER Referring Provider: AKBAR MACRTHUR [[id number]] Allergies As of Date: 08/02/2017 Noted Allergy Reaction SULFA (SULFONAMIDE ANTIBIOTICS) 08/25/2011 2 - Rash TIZANIDINE 06/04/2017 8 - GI Upset Date Reviewed: 08/02/2017 Reviewed by: Gretchen ([employer] Inspector) Ariana - Fully Assessed Reason for Visit: Established Patient [175] Primary Visit Diagnosis:Malignant melanoma, unspecified site (HCC) [C43.9] Other Visit Diagnoses:Liver metastases (HCC) [C78.7] Brain metastases (HCC) [C79.31] Follow-up and Disposition History Recorded Prescriptions as of 08/02/2017 Sig: PROMETHAZINE 25 MG TABLET Take 1 tablet by mouth every * OMEPRAZOLE 40 MG CAPSULE,MALISSA* Take 1 capsule by mouth once * TRAMADOL 50 MG TABLET EVERY 6 HOURS NEEDED COMPOUNDED PRESCRIPTION Outpatient Physical therapy f* ACETAMINOPHEN 325 MG TABLET Take 650 mg by mouth every 6 * Medication notes this encounter OMEPRAZOLE 40 MG CAPSULE,DELAYED RELEASE >> Jada Blanc MA 08/02/2017 11:12 AM >> JADA BLANC MA August 02, 2017 11:12 AM as necessary ONDANSETRON 8 MG DISINTEGRATING TABLET >> Jada Blanc MA 08/02/2017 11:12 AM >> JADA BLANC MA August 02, 2017 11:12 AM Didn't fill RX. GABAPENTIN 300 MG CAPSULE >> Jada Blanc MA 08/02/2017 11:13 AM >> JADA BLANC MA August 02, 2017 11:13 AM Completed Problem List As Of Date 08/02/2017 Noted Resolved Cord compression (HCC) [G95.20] INVALID FOR* More... Nicotine use disorder, F17.2 [F17.200] INVALID FOR* Brain metastases (HCC) [C79.31] INVALID FOR* Malignant melanoma (HCC) [C43.9] INVALID FOR* Liver metastases (HCC) [C78.7] INVALID FOR* Encounter Status:Closed by GRETCHEN LANE CNP on 08/03/17 PROGRESS Observed: 07/27/2017 Status: COMPLETED Source: [place] 9:13 AM [facility] REPOSITORY HNO ID: [id number] Author: Gretchen Chatterjee) Ariana Service: (none) Author Type: Nurse Practitioner Type: Progress Notes Filed: 07/27/2017 10:24 AM Note Text: Chief Complaint Patient presents with: Established Patient HPI: Delmi Phillips is a 66 year old male who presents here today for evaluation for next cycle of keytruda. Per Dr. Mcarthur's previous note: H/o alcohol dependence who the day after Thanksgiving stumbled when coming down a set of steps. Following that he noticed progressive pain in the left upper chest. He was seen by his primary care physician and underwent a CT scan of the chest on 05/11/2017. That study demonstrated numerous bilateral areas of pleural-based and parenchymal nodularity measuring 2-7 mm in size. There was no calcification or cavitation noted. Ascending aorta was mildly ectatic and measured at 38 mm. There was mild prominence of the central pulmonary artery. In the high posterior) midline dorsal region was in the approximate T2 area there was a subcutaneous soft tissue mass measuring 34 x 25 mm. This was thought to possibly be a large sebaceous cyst. There was a comminuted fracture with approximate 40% volume loss of what appeared to be T4. This involved the left side and relatively blastic in appearance. The patient also underwent a CT scan of the abdomen and pelvis on 05/25/2017. That study demonstrated multiple hypodense nodules in the liver suggestive of diffuse metastatic disease. There were also several peripheral nodules in the spleen that were hypodense suggestive of metastatic changes well. Bladder was mildly distended. ? The patient was having progressive lower tissue weakness therefore admitted to [facility] 06/04/2017. ? MRI of the spine: ? Cervical spine: Focus of marrow signal abnormality at C4 compatible with bony metastasis. ?No pathologic enhancement in the cervical cord. ?Severe degenerative disc disease in the lower cervical spine with Canal stenosis is worst at C5-C6. Thoracic spine: Multiple areas of abnormal marrow signal in the MID thoracic vertebrae. ?T4 is most affected which shows a 50% pathologic compression fracture with abnormal epidural metastatic soft tissue. ?This results in moderate CORD compression at this level without evidence for cord signal abnormality. No evidence of leptomeningeal disease in the thoracic CORD. Lumbar spine: Bony metastasis at the S2 segment. ?Lumbar vertebrae show no evidence of metastatic disease. ?No evidence of leptomeningeal disease. ?Severe neural foraminal stenoses at right L4-L5 and bilateral L5-S1 due to degenerative disc and facet disease. ?No pathologic enhancement involving conus medullaris or cauda equina. Incidentally noted 1.5 cm enhancing lesion in the right lobe of the liver. ?This is suspicious for an additional metastatic focus. ? He was discharged but presented to emergency room at [facility] a day later with complaints of progressive weakness of the left arm. He was transferred back to [facility] where he underwent a brain MRI that disclosed at least 8 parenchymal brain metastases. His pain was under good control and his spine was thought to be stable for discharge. Plan was for outpatient radiation. ? Biopsy sample from the liver which was taken during his first hospitalization returned as metastatic melanoma. ? Previous therapy: 1) WBRT and palliative radiation T2-T5. It went ok I guess. I vomit a lot. Appetite:very little since treatment. Wt. stable this month. Energy level:sometimes not bad sometimes not so good-worse after treatment for about 2 days. Denies fevers. Mouth:denies sores Resp:denies cough or sob Cardiac:occ. L chest pain that's been going on before treatment- maybe 2 months denies palpitations GI:denies abd pain, +nausea/vomiting-usually once per day after drinking water or eating something, moving bowels very little :denies dysuria/hematuria Extrem:I mowed and then my left butt really hurt. Neuro:denies symptoms of neuropathy Skin:denies rashes/lesions Heme:denies bleeding The ROS is otherwise negative. Past medical history, appointments, medications, allergies reviewed. No changes. EXAM: BP 121/79 Pulse 92 Temp 36.4 ?C (97.6 ?F) Wt 73.5 kg (162 lb) BMI 23.24 kg/m2 APPEARANCE Well appearing, alert, in no acute distress, well-hydrated, well nourished. MOUTH no mucositis HEART RRR with normal S1 and S2, no murmurs LUNG clear to auscultation LYMPH NODES No cervical lymphadenopathy, No supraclavicular lymphadenopathy and No axillary lymphadenopathy. ABDOMEN bowel sounds normoactive, no bruits, soft, non-tender, non-distended, without organomegaly or palpable masses EXTREMITIES No edema NEURO Awake, alert and oriented x 3, Normal gait with cane- able to get on exam table and No involuntary motions. SKIN Skin color, texture, turgor normal, no suspicious rashes or lesions LABS: Component Latest Ref Rng AND Units 07/06/2017 07/27/2017 WBC, [place] 3.70 - 11.00 k/uL 8.65 9.54 RBC, [place] 4.20 - 6.00 m/uL 4.74 4.11 (L) Hemoglobin, [place] 13.0 - 17.0 g/dL 13.8 11.8 (L) Hematocrit, [place] 39.0 - 51.0 % 41.7 36.7 (L) MCV, [place] 80.0 - 100.0 fL 88.0 89.3 MCH, Wendy 26.0 - 34.0 pg 29.1 28.7 MCHC, [place] 30.5 - 36.0 g/dL 33.1 32.2 RDW, [place] 11.5 - 15.0 % 15.1 (H) 16.1 (H) Platelet Cnt, Wendy 150 - 400 k/uL 106 (L) 334 MPV, [place] 9.0 - 12.7 fL 9.8 9.2 Absol Gran Count 1.45 - 7.50 k/uL 7.99 (H) 7.83 (H) CMP: Pending ASSESSMENT/PLAN: 1. Malignant melanoma, unspecified site (HCC) - ICD9: 172.9, ICD10: C43.9 (primary diagnosis) 2. Brain metastases (HCC) - ICD9: 198.3, ICD10: C79.31 3. Liver metastases (HCC) - ICD9: 197.7, ICD10: C78.7 - Tolerated first cycle fair d/t nausea/vomiting/fatigue. - Advised pt. to take zofran and miralax as directed. If zofran is not effective will trial reglan. - Rx prilosec. - Reviewed labs with pt. - Proceed as scheduled tomorrow. Pt. aware to call office if vomiting persists. - Follow up as scheduled. - Pt. aware to call office with any questions/concerns. The patient indicates understanding of these issues and agrees with the plan. Discussed case with Dr. Mcarthur who agrees with treatment plan. Gretchen Lane APRN.CARTON MAKER WENDY ABS GR + CBC Collected: 07/27/2017 Status: F Source: [place] 8:49 AM [facility] REPOSITORY TYPE CODE TESTS RESULT OUT OF REFERENCE UNITS RANGE LAB WWBC 3.70-11.00 k/uL [place] WBC 9.54 LAB WRBC 4.20-6.00 m/uL Low [place] RBC 4.11 LAB WHGB 13.0-17.0 g/dL Low Wendy Hemoglobin 11.8 LAB WHCT 39.0-51.0 % Low [place] Hematocrit 36.7 LAB WMCV 80.0-100.0 fL Wendy MCV 89.3 LAB WMCH 26.0-34.0 pg [place] MCH 28.7 LAB WMCHC 30.5-36.0 g/dL Wendy MCHC 32.2 LAB [place] 11.5-15.0 % Wendy High [place] 16.1 LAB WPLT 150-400 k/uL Wendy Platelet Cnt 334 LAB WMPV 9.0-12.7 fL Wendy MPV 9.2 Result Comment: Test performed at: [facility], [address] [place] [address] Rd[address] [place] [address]. LAB ABGRAN 1.45-7.50 k/uL High Absol 7.83 Gran Count COMP METABOLIC PANEL Collected: 07/27/2017 Status: F Source: [place] 8:37 AM [facility] REPOSITORY TYPE CODE TESTS RESULT OUT OF REFERENCE UNITS RANGE LAB TP 6.3-8.0 g/dL Low Protein, Total 6.2 LAB ALB 3.9-4.9 g/dL Low Albumin 2.7 LAB CA 8.5-10.2 mg/dL Low Calcium, Total 8.4 LAB TBIL 0.2-1.3 mg/dL Bilirubin, Total 0.7 LAB ALKP 36-108 U/L Alkaline High Phosphatase 212 LAB AST 14-40 U/L AST 26 LAB GLU 74-99 mg/dL Glucose 95 Result Comment: The [place] [employer] (ADA) provides guidance for cutoff values for fasting glucose and random glucose. The ADA defines fasting as no caloric intake for at least 8 hours. Fas ting plasma glucose results between 100 to 125 mg/dL indicate increased risk for diabetes (prediabetes). Fasting plasma glucose results greater than or equal to 126 mg/dL meet the criteria for diagnosis of diabetes. In the absence of unequivocal hyperglycemia, results should be confirmed by repeat testing. In a patient with classic symptoms of hyperglycemia or hyperglycemic crisis, random plasma glucose results greater than or equal to 200 mg/dL meet the criteria for diagnosis of diabetes. Reference: Standards of Medical Care in Diabetes 2016, [place] [employer]. Diabetes Care. 2016.39(Suppl 1). LAB BUN 9-24 mg/dL BUN 15 LAB CRET 0.73-1.22 mg/dL Creatinine Low 0.70 LAB NA 136-144 mmol/L Sodium 136 LAB K 3.7-5.1 mmol/L Potassium 4.5 LAB CL 97-105 mmol/L Chloride 98 LAB CO2 22-30 mmol/L CO2 27 LAB AGAP 9-18 mmol/L Anion Gap 11 LAB ALT 10-54 U/L ALT 23 LAB GFRAA eGFR- Amer. >60 LAB GFRNAA . eGFR-All Other Races >60 Result Comment: eGFR (Estimated GFR) Units of measure: mL/min/1.73 meters squared eGFR is derived from the reexpressed MDRD Study equation using the following parameters: serum creatinine, age, gender and race. The creatinine assay has been calibrated to be traceable to IDMS. An eGFR <60 mL/min/1.73m2 for >3 months is consistent with chronic kidney disease. Refer to KDOQI guidelines for clinical interpretation. In patients with unstable renal function, e.g. those with acute kidney injury, the eGFR may not accurately reflect actual GFR. Performed By: #### CMP #### [facility] [address] [place], [place] [address] CNOVSP Observed: 07/27/2017 Status: COMPLETED Source: [place] 8:30 AM [facility] REPOSITORY Visit (SP) Office (JOSSY) DELMI PHILLIPS ([id number]) 1950 M Date Time Provider Department 07/27/17 8:[address] (CARTON MAKER) JOSSY During your visit today, we recorded the following information about you: Temperature Pulse Blood pressure Weight 97.6 degrees 92/minute 121/79 73.5 kg Beverly Rice LPN 07/27/2017 9:08 AM Signed Est patient. Discuss recent labs. Denies nausea but c/o difficulty keeping food and fluids down. Beverly Lane APRN.KATHE 07/27/2017 10:24 AM Signed Chief Complaint Patient presents with: Established Patient HPI: Delmi Phillips is a 66 year old male who presents here today for evaluation for next cycle of keytruda. Per Dr. Mcarthur's previous note: H/o alcohol dependence who the day after Thanksgiving stumbled when coming down a set of steps. Following that he noticed progressive pain in the left upper chest. He was seen by his primary care physician and underwent a CT scan of the chest on 05/11/2017. That study demonstrated numerous bilateral areas of pleural-based and parenchymal nodularity measuring 2-7 mm in size. There was no calcification or cavitation noted. Ascending aorta was mildly ectatic and measured at 38 mm. There was mild prominence of the central pulmonary artery. In the high posterior) midline dorsal region was in the approximate T2 area there was a subcutaneous soft tissue mass measuring 34 x 25 mm. This was thought to possibly be a large sebaceous cyst. There was a comminuted fracture with approximate 40% volume loss of what appeared to be T4. This involved the left side and relatively blastic in appearance. The patient also underwent a CT scan of the abdomen and pelvis on 05/25/2017. That study demonstrated multiple hypodense nodules in the liver suggestive of diffuse metastatic disease. There were also several peripheral nodules in the spleen that were hypodense suggestive of metastatic changes well. Bladder was mildly distended. ? The patient was having progressive lower tissue weakness therefore admitted to [facility] 06[facility]04[facility]2017. ? MRI of the spine: ? Cervical spine: Focus of marrow signal abnormality at C4 compatible with bony metastasis. ?No pathologic enhancement in the cervical cord. ?Severe degenerative disc disease in the lower cervical spine with Canal stenosis is worst at C5-C6. Thoracic spine: Multiple areas of abnormal marrow signal in the MID thoracic vertebrae. ?T4 is most affected which shows a 50% pathologic compression fracture with abnormal epidural metastatic soft tissue. ?This results in moderate CORD compression at this level without evidence for cord signal abnormality. No evidence of leptomeningeal disease in the thoracic CORD. Lumbar spine: Bony metastasis at the S2 segment. ?Lumbar vertebrae show no evidence of metastatic disease. ?No evidence of leptomeningeal disease. ?Severe neural foraminal stenoses at right L4-L5 and bilateral L5-S1 due to degenerative disc and facet disease. ?No pathologic enhancement involving conus medullaris or cauda equina. Incidentally noted 1.5 cm enhancing lesion in the right lobe of the liver. ?This is suspicious for an additional metastatic focus. ? He was discharged but presented to emergency room at [facility] a day later with complaints of progressive weakness of the left arm. He was transferred back to [facility] where he underwent a brain MRI that disclosed at least 8 parenchymal brain metastases. His pain was under good control and his spine was thought to be stable for discharge. Plan was for outpatient radiation. ? Biopsy sample from the liver which was taken during his first hospitalization returned as metastatic melanoma. ? Previous therapy: 1) WBRT and palliative radiation T2-T5. ANDquot;It went ok I guess. I vomit a lot.ANDquot; Appetite:ANDquot;very little since treatment.ANDquot; Wt. stable this month. Energy level:ANDquot;sometimes not bad sometimes not so good-worse after treatment for about 2 days.ANDquot; Denies fevers. Mouth:denies sores Resp:denies cough or sob Cardiac:occ. L chest pain ANDquot;that's been going on before treatment-maybe 2 monthsANDquot; denies palpitations GI:denies abd pain, +nausea/vomiting-usually once per day after drinking water or eating something, moving bowels ANDquot;very littleANDquot; :denies dysuria/hematuria Extrem:ANDquot;I mowed and then my left butt really hurt.ANDquot; Neuro:denies symptoms of neuropathy Skin:denies rashes/lesions Heme:denies bleeding The ROS is otherwise negative. Past medical history, appointments, medications, allergies reviewed. No changes. EXAM: BP 121/79 Pulse 92 Temp 36.4 ?C (97.6 ?F) Wt 73.5 kg (162 lb) BMI 23.24 kg/m2 APPEARANCE Well appearing, alert, in no acute distress, well- hydrated, well nourished. MOUTH no mucositis HEART RRR with normal S1 and S2, no murmurs LUNG clear to auscultation LYMPH NODES No cervical lymphadenopathy, No supraclavicular lymphadenopathy and No axillary lymphadenopathy. ABDOMEN bowel sounds normoactive, no bruits, soft, non-tender, non-distended, without organomegaly or palpable masses EXTREMITIES No edema NEURO Awake, alert and oriented x 3, Normal gait with cane- able to get on exam table and No involuntary motions. SKIN Skin color, texture, turgor normal, no suspicious rashes or lesions LABS: Component Latest Ref Rng ANDamp; Units 07/06/2017 07/27/2017 WBC, Wendy 3.70 - 11.00 k/uL 8.65 9.54 RBC, Wendy 4.20 - 6.00 m/uL 4.74 4.11 (L) Hemoglobin, Wendy 13.0 - 17.0 g/dL 13.8 11.8 (L) Hematocrit, Wendy 39.0 - 51.0 % 41.7 36.7 (L) MCV, Wendy 80.0 - 100.0 fL 88.0 89.3 MCH, [place] 26.0 - 34.0 pg 29.1 28.7 MCHC, [place] 30.5 - 36.0 g/dL 33.1 32.2 RDW, Wendy 11.5 - 15.0 % 15.1 (H) 16.1 (H) Platelet Cnt, Wendy 150 - 400 k/uL 106 (L) 334 MPV, [place] 9.0 - 12.7 fL 9.8 9.2 Absol Gran Count 1.45 - 7.50 k/uL 7.99 (H) 7.83 (H) CMP: Pending ASSESSMENT/PLAN: 1. Malignant melanoma, unspecified site (HCC) - ICD9: 172.9, ICD10: C43.9 (primary diagnosis) 2. Brain metastases (HCC) - ICD9: 198.3, ICD10: C79.31 3. Liver metastases (HCC) - ICD9: 197.7, ICD10: C78.7 - Tolerated first cycle fair d/t nausea/vomiting/fatigue. - Advised pt. to take zofran and miralax as directed. If zofran is not effective will trial reglan. - Rx prilosec. - Reviewed labs with pt. - Proceed as scheduled tomorrow. Pt. aware to call office if vomiting persists. - Follow up as scheduled. - Pt. aware to call office with any questions/concerns. The patient indicates understanding of these issues and agrees with the plan. Discussed case with Dr. Mcarthur who agrees with treatment plan. Gretchen Lane, BETH.CARTON MAKER Referring Provider: AKBAR MCARTHUR [[id number]] Allergies As of Date: 07/27/2017 Noted Allergy Reaction SULFA (SULFONAMIDE ANTIBIOTICS) 08/25/2011 2 - Rash TIZANIDINE 06/04/2017 8 - GI Upset Date Reviewed: 07/27/2017 Reviewed by: Gretchen ([employer] Inspector) Ariana - Fully Assessed Reason for Visit: Established Patient [[id number]] Primary Visit Diagnosis:Malignant melanoma, unspecified site (HCC) [C43.9] Other Visit Diagnoses:Brain metastases (HCC) [C79.31] Liver metastases (HCC) [C78.7] Order(s):Omeprazole (PRILOSEC) 40 mg capsuleTake 1 capsule by mouth once daily.Disp: 30 capsuleRfl: 5 Follow-up and Disposition History Recorded Prescriptions as of 07/27/2017 Sig: TRAMADOL 50 MG TABLET EVERY 6 HOURS NEEDED ONDANSETRON 8 MG DISINTEGRATI* Take 1 tablet by mouth every * GABAPENTIN 300 MG CAPSULE Take 1 capsule by mouth daily* ACETAMINOPHEN 325 MG TABLET Take 650 mg by mouth every 6 * OMEPRAZOLE 40 MG CAPSULE,MALISSA* Take 1 capsule by mouth once * COMPOUNDED PRESCRIPTION Outpatient Physical therapy f* Medication notes this encounter DEXAMETHASONE 0.75 MG TABLET >> Beverly Rice LPN 07/27/2017 8:56 AM >> BEVERLY RICE LPN TueJul 27, 2017 8:56 AM discontinued OMEPRAZOLE 20 MG CAPSULE,DELAYED RELEASE >> Beverly Rice LPN 07/27/2017 8:57 AM >> BEVERLY RICE LPN TueJul 27, 2017 8:57 AM Not taking ALBUTEROL SULFATE HFA 90 MCG/ACTUATION AEROSOL INHALER >> Beverly Rice LPN 07/27/2017 8:56 AM >> BEVERLY RICE LPN TueJul 27, 2017 8:56 AM discontinued Problem List As Of Date 07/27/2017 Noted Resolved Cord compression (HCC) [G95.20] INVALID FOR* More... Nicotine use disorder, F17.2 [F17.200] INVALID FOR* Brain metastases (HCC) [C79.31] INVALID FOR* Malignant melanoma (HCC) [C43.9] INVALID FOR* Liver metastases (HCC) [C78.7] INVALID FOR* Visit Notes: >> Beverly Rice STRAP CUTTER TueJul 27, 2017 8:57 AM Status: Signed Est patient. Discuss recent labs. Denies nausea but c/o difficulty keeping food and fluids down. Beverly Rice ROB Encounter Status:Closed by GRETCHEN LANE CNP on 07/27/17 PROGRESS Observed: 07/07/2017 Status: COMPLETED Source: [place] 2:22 PM [facility] REPOSITORY HNO ID: [id number] Author: Gladys Perez (Sw) Service: (none) Author Type: Hydro Electric Station Operator Type: Progress Notes Filed: 07/07/2017 2:37 PM Note Text: You are not granted access to view this sensitive note. CNSW Observed: 07/07/2017 Status: COMPLETED Source: [place] 12:00 AM [facility] REPOSITORY Social Work (JOSSY) DELMI PHILLIPS ([id number]) 1950 M Date Time Provider Department 07/07/17 GLADYS PEREZ) JOSSY During your visit today, we recorded the following information about you: Allergies As of Date: 07/07/2017 Noted Allergy Reaction SULFA (SULFONAMIDE ANTIBIOTICS) 08/25/2011 2 - Rash TIZANIDINE 06/04/2017 8 - GI Upset Date Reviewed: 07/07/2017 Reviewed by: Anna Tijerina, RN, RN - Fully Assessed Reason for Visit: Psychosocial Assessment [[id number]] Cmt: PA Prescriptions as of 07/07/2017 Sig: DEXAMETHASONE 0.75 MG TABLET Taper: Take two tabs once violetta* TRAMADOL 50 MG TABLET EVERY 6 HOURS NEEDED IV CONTRAST (RADIOLOGY PROCED* MRI Brain Inject, intravenous* PROCHLORPERAZINE MALEATE 10 M* Take 1 tablet by mouth every * ONDANSETRON 8 MG DISINTEGRATI* Take 1 tablet by mouth every * OMEPRAZOLE 20 MG CAPSULE,MALISSA* Take 1 capsule by mouth once * COMPOUNDED PRESCRIPTION Outpatient Physical therapy f* GABAPENTIN 300 MG CAPSULE Take 1 capsule by mouth daily* ACETAMINOPHEN 325 MG TABLET Take 650 mg by mouth every 6 * * ALBUTEROL SULFATE HFA 90 MCG/* Inhale 2 Puffs as instructed * Problem List As Of Date 07/07/2017 Noted Resolved Cord compression (HCC) [G95.20] INVALID FOR* More... Nicotine use disorder, F17.2 [F17.200] INVALID FOR* Brain metastases (HCC) [C79.31] INVALID FOR* Malignant melanoma (HCC) [C43.9] INVALID FOR* Liver metastases (HCC) [C78.7] INVALID FOR* Encounter Status:Closed by GLADYS PEREZ on 07/07/17 PROGRESS Observed: 07/06/2017 Status: COMPLETED Source: [place] 4:46 PM [facility] REPOSITORY [facility] ID: [id number] Author: Gladys Perez (Sw) Service: (none) Author Type: [employer] Electric Station Operator Type: Progress Notes Filed: 07/06/2017 4:48 PM Note Text: Social Work Problem Referral Note INFORMATION/REFERRAL : Delmi Phillips 66 year old male was referred by [facility] to [facility] for the following reason(s): Palliative care information PERSONS INTERVIEWED: family INTERVENTION: Information AND Referral Service Co-ordination Affect/Mood: The patient is noted as did not assess patient IDENTIFIED PROBLEMS/NEEDS: Referral Intervention/Referral to be provided:Arrangements made for continuity of care Information for community resources/agencies IMPRESSION/PLAN: SPIKE met with patient's daughter to answer questions about palliative care. SPIKE informed her that [facility] offers palliative care and discussed with her the referral process. Patient's daughter will look into this and consult with SPIKE tomorrow about her decision on whether or not they want to pursue these services. F/U APPOINTMENT: 07/07/17 Gladys Perez EXPERIMENTAL PREFLIGHT MECHANIC PROGRESS Observed: 07/06/2017 Status: COMPLETED Source: [place] 4:11 PM [facility] REPOSITORY HNO ID: [id number] Author: Akbar Mcarthur Service: (none) Author Type: Physician Type: Progress Notes Filed: 07/06/2017 4:42 PM Note Text: Patient is self-referred for my opinion recommendations regarding management of metastatic melanoma. HPI: The patient is a 66-year-old male who has a past medical history significant for alcohol dependence who the day after Thanks[place] stumbled when coming down a set of steps. Following that he noticed progressive pain in the left upper chest. He was seen by his primary care physician and underwent a CT scan of the chest on 05/11/2017. That study demonstrated numerous bilateral areas of pleural-based and parenchymal nodularity measuring 2-7 mm in size. There was no calcification or cavitation noted. Ascending aorta was mildly ectatic and measured at 38 mm. There was mild prominence of the central pulmonary artery. In the high posterior) midline dorsal region was in the approximate T2 area there was a subcutaneous soft tissue mass measuring 34 x 25 mm. This was thought to possibly be a large sebaceous cyst. There was a comminuted fracture with approximate 40% volume loss of what appeared to be T4. This involved the left side and relatively blastic in appearance. The patient also underwent a CT scan of the abdomen and pelvis on 05/25/2017. That study demonstrated multiple hypodense nodules in the liver suggestive of diffuse metastatic disease. There were also several peripheral nodules in the spleen that were hypodense suggestive of metastatic changes well. Bladder was mildly distended. The patient was having progressive lower tissue weakness therefore admitted to [facility] 06/04/2017. MRI of the spine: Cervical spine: Focus of marrow signal abnormality at C4 compatible with bony metastasis. ?No pathologic enhancement in the cervical cord. ?Severe degenerative disc disease in the lower cervical spine with Canal stenosis is worst at C5-C6. Thoracic spine: Multiple areas of abnormal marrow signal in the MID thoracic vertebrae. ?T4 is most affected which shows a 50% pathologic compression fracture with abnormal epidural metastatic soft tissue. ?This results in moderate CORD compression at this level without evidence for cord signal abnormality. No evidence of leptomeningeal disease in the thoracic CORD. Lumbar spine: Bony metastasis at the S2 segment. ?Lumbar vertebrae show no evidence of metastatic disease. ?No evidence of leptomeningeal disease. ?Severe neural foraminal stenoses at right L4-L5 and bilateral L5-S1 due to degenerative disc and facet disease. ?No pathologic enhancement involving conus medullaris or cauda equina. Incidentally noted 1.5 cm enhancing lesion in the right lobe of the liver. ?This is suspicious for an additional metastatic focus. He was discharged but presented to emergency room at [facility] a day later with complaints of progressive weakness of the left arm. He was transferred back to [facility] where he underwent a brain MRI that disclosed at least 8 parenchymal brain metastases. His pain was under good control and his spine was thought to be stable for discharge. Plan was for outpatient radiation. Biopsy sample from the liver which was taken during his first hospitalization returned as metastatic melanoma. Previous therapy: 1) WBRT and palliative radiation T2-T5. Presents for ongoing oncologic management. Interim history: He's had remarkable decrease in pain. In fact he rarely takes a Tylenol tablet now. He hasn't taken any Ultram. He says sometimes when he turns a certain way he has some back pain but by far enlarge it is under great control. His appetite however is not doing very well but he is eating more and is taking in boost. He's lost quite a bit of weight however. He still fatigued and somewhat weak. No episodes of jaundice. No abdominal pain. No cough or hemoptysis. PMH, medications and allergies personally reviewed by me today. Any changes documented in appropriate section. ROS: Constitutional: Denies episodes of fever and night sweats. Neuro: Denies DIAZ, vertigo, dizziness. HEENT: No recent change in voice, vision or hearing. Resp: Denies shortness of breath at rest. CVS: Denies exertional chest pain, PND, orthopnea and LE edema. GI: Denies dysgeusia. Denies symptoms of stomatitis. Denies dysphagia and odynophagia. : Denies dysuria or gross hematuria. No symptoms of bladder outlet obstruction. Endo: Denies hot flashes. Denies polyuria and polydipsia. Denies heat and cold intolerance. Musculoskeletal: See above. Derm: Denies rash. Denies jaundice and diffuse pruritis. Heme: Denies unusual bleeding and unexplained bruising. Psych: Normal mood. PHYSICAL EXAM: Vitals: Blood pressure 136/87, pulse 94, temperature 36 ?C (96.8 ?F), temperature source Temporal Artery, resp. rate 20, weight 73.7 kg (162 lb 8 oz), SpO2 96 %. Well-appearing and in no acute distress. EYES: Sclerae are anicteric bilaterally. ENT: Oral mucosa is unremarkable. There is no sign of thrush or mucositis. NECK: Supple. LYMPHATIC: There is no palpable cervical, supraclavicular, axillary or inguinal adenopathy. RESPIRATORY: Inspiratory breath sounds are of diminished intensity in all springer. No rales, wheezes or rhonchi. CARDIOVASCULAR: Rhythm is regular. Normal intensity S1/S2. There is no gallop or murmur. ABDOMEN: The abdomen is nondistended. No organomegaly. No tenderness. Extremities: No swelling or edema. SKIN: No jaundice or rash. No petechiae. Large sebaceous cyst mid right upper back. NEUROLOGIC: In wheel chair. He was able to get on the exam table with assistance. outpatient coding specialist II-XII are grossly intact. Global weakness of both legs. MUSCULOSKELETAL: No muscle wasting. ASSESSMENT/PLAN: (C43.9) Malignant melanoma, unspecified site (HCC) (primary encounter diagnosis) (C78.7) Liver metastases (HCC) (C79.31) Brain metastases (HCC) Assessment: -KPS is 60% -BRAF mutated but not classic V600 mutation. -I discussed with the patient and his family the natural history, treated course, and prognosis of metastatic melanoma and recommended therapy with pembrolizumab. Also discussed the rationale, logistics, potential risks (including ), benefits and alternatives, as well as the personnel involved in the administration of pembrolizumab. I answered his and his family's questions in detail and he verbalized understanding and agreed with the recommended therapy. Please see the electronic consent document for details of doses and schedule. Plan: -Begin treatment tomorrow. -Repeat brain MRI in about 4-6 weeks. -Plan CT scan after 2-3 doses of therapy. Discussed with patient and family that the benefit from immunotherapy can take up to several months however. Akbar Mcarthur, DO PROGRESS Observed: 07/06/2017 Status: COMPLETED Source: [place] 4:08 PM [facility] REPOSITORY HNO ID: [id number] Author: Jaziel Collazo Service: (none) Author Type: Physician Type: Progress Notes Filed: 07/08/2017 8:54 AM Note Text: Radiation Oncology - Follow Up Note PATIENT NAME: Delmi Phillips PATIENT DIAGNOSIS: Metastatic melanoma with multiple brain metastases and bone metastasis with spinal cord compression at T4, s/p palliative radiation treatment to the brain and T2 to T5 finished on 07/01/17. INTERVAL HISTORY: He is here for a routine follow-up one week after completion of radiation treatment. He denies any headaches or nausea. He reports that his left side numbness/tingling has improved much. He denies any back or posterior chest pain. He walks with a walker. He has increased tearing from the left eye and has dry mouth. ALLERGIES Allergen Reactions - Sulfa (Sulfonamide * Rash - Tizanidine GI Upset MEDICATIONS: prochlorperazine (COMPAZINE) 10 mg tablet Take 1 tablet by mouth every 6 hours as needed. ondansetron orally disintegrating (ZOFRAN ODT) 8 mg disintegrating tablet Take 1 tablet by mouth every 8 hours as needed. dexamethasone (DECADRON) 4 mg tablet Taper: Take one tab three times daily for four days, then take one tab twice daily for four day, then take one tab once daily omeprazole (PRILOSEC) 20 mg capsule Take 1 capsule by mouth once daily. COMPOUNDED PRESCRIPTION Outpatient Physical therapy for weakness due to his metastatic malignancy. gabapentin (NEURONTIN) 300 mg capsule Take 1 capsule by mouth daily at bedtime for 30 days. acetaminophen (TYLENOL) 325 mg tablet Take 650 mg by mouth every 6 hours as needed. albuterol HFA (VENTOLIN HFA) 90 mcg/actuation inhaler Inhale 2 Puffs as instructed every 6 hours as needed. naproxen (NAPROSYN) 500 mg tablet Take 1 tablet by mouth twice daily with meals. PHYSICAL EXAM: VS: BP 160/93 (BP Site: Right Arm, BP Position: Sitting, BP Cuff Size: Regular Adult) Pulse 108 Temp 36 ?C (96.8 ?F) (Temporal Artery) Resp 20 SpO2 96% KPS: 70 General Appearance: Alert and oriented. No acute distress. HEENT: Partial alopecia and moderate erythema of the scalp. ASSESSMENT AND PLAN: Clinically stable. Continue skin care with Aquaphor cream. Artifical tear eye drops as needed. I will taper off steroids. He will see Dr. Mcarthur today to discuss Keytruda. I will see him in three months for a routine follow-up. Signed by: Jaziel Collazo MD cc: Jerry Aguirre, CARTON MAKER [address] [place] [address] WENDY ABS GR + CBC Collected: 07/06/2017 Status: F Source: [place] 4:01 PM [facility] REPOSITORY TYPE CODE TESTS RESULT OUT OF REFERENCE UNITS RANGE LAB WWBC 3.70-11.00 k/uL [place] WBC 8.65 LAB WRBC 4.20-6.00 m/uL [place] RBC 4.74 LAB WHGB 13.0-17.0 g/dL [place] Hemoglobin 13.8 LAB WHCT 39.0-51.0 % Wendy Hematocrit 41.7 LAB WMCV 80.0-100.0 fL Wendy MCV 88.0 LAB WMCH 26.0-34.0 pg [place] MCH 29.1 LAB WMCHC 30.5-36.0 g/dL [place] MCHC 33.1 LAB WRDW 11.5-15.0 % [place] High RDW 15.1 LAB WPLT 150-400 k/uL Low [place] Platelet Cnt 106 LAB WMPV 9.0-12.7 fL Wendy MPV 9.8 Result Comment: Test performed at: [facility], [address] [place] [address]. LAB ABGRAN 1.45-7.50 k/uL High Absol 7.99 Gran Count COMP METABOLIC PANEL Collected: 07/06/2017 Status: F Source: [place] 4:01 PM [facility] REPOSITORY TYPE CODE TESTS RESULT OUT OF REFERENCE UNITS RANGE LAB TP 6.3-8.0 g/dL Protein, Total 6.5 LAB ALB 3.9-4.9 g/dL Low Albumin 3.6 LAB CA 8.5-10.2 mg/dL Low Calcium, Total 8.3 LAB TBIL 0.2-1.3 mg/dL Bilirubin, Total 1.3 LAB ALKP 36-108 U/L Alkaline High Phosphatase 111 LAB AST 14-40 U/L AST 26 LAB GLU 74-99 mg/dL Glucose High 124 Result Comment: The [place] [employer] (ADA) provides guidance for cutoff values for fasting glucose and random glucose. The ADA defines fasting as no caloric intake for at least 8 hours. Fas ting plasma glucose results between 100 to 125 mg/dL indicate increased risk for diabetes (prediabetes). Fasting plasma glucose results greater than or equal to 126 mg/dL meet the criteria for diagnosis of diabetes. In the absence of unequivocal hyperglycemia, results should be confirmed by repeat testing. In a patient with classic symptoms of hyperglycemia or hyperglycemic crisis, random plasma glucose results greater than or equal to 200 mg/dL meet the criteria for diagnosis of diabetes. Reference: Standards of Medical Care in Diabetes 2016, [place] [employer]. Diabetes Care. 2016.39(Suppl 1). LAB BUN 9-24 mg/dL BUN 24 LAB CRET 0.73-1.22 mg/dL Creatinine 0.75 LAB NA 136-144 mmol/L Sodium 136 LAB K 3.7-5.1 mmol/L Potassium 3.8 LAB CL 97-105 mmol/L Chloride 98 LAB CO2 22-30 mmol/L CO2 23 LAB AGAP 9-18 mmol/L Anion Gap 15 LAB ALT 10-54 U/L ALT 37 LAB GFRAA eGFR- Amer. >60 LAB GFRNAA . eGFR-All Other Races >60 Result Comment: eGFR (Estimated GFR) Units of measure: mL/min/1.73 meters squared eGFR is derived from the reexpressed MDRD Study equation using the following parameters: serum creatinine, age, gender and race. The creatinine assay has been calibrated to be traceable to IDMS. An eGFR <60 mL/min/1.73m2 for >3 months is consistent with chronic kidney disease. Refer to KDOQI guidelines for clinical interpretation. In patients with unstable renal function, e.g. those with acute kidney injury, the eGFR may not accurately reflect actual GFR. Performed By: #### CMP, LD6 #### [facility] [address] [place], [place] [address] LD Collected: 07/06/2017 Status: F Source: [facility] 4:01 PM MAIN CAMPUS REPOSITORY TYPE CODE TESTS RESULT OUT OF RANGE REFERENCE UNITS LAB LD 135-225 U/L High LD 1068 Performed By: #### CMP, LD6 #### [facility] [address] [place], [place] [address] CNOVSP Observed: 07/06/2017 Status: COMPLETED Source: [place] 4:00 PM [facility] REPOSITORY Visit (SP) Office (JOSSY) ALANDELMI Nae ([id number]) 1950 M Date Time Provider Department 07/06/17 4:00 PM AKBAR MCARTHUR During your visit today, we recorded the following information about you: Temperature Pulse Respiration Blood pressure 96.8 degrees 94/minute 20/minute 136/87 Weight 73.7 kg Akbar Mcarthur DO 07/06/2017 4:42 PM Signed Patient is self-referred for my opinion recommendations regarding management of metastatic melanoma. HPI: The patient is a 66-year-old male who has a past medical history significant for alcohol dependence who the day after Thanksgi stumbled when coming down a set of steps. Following that he noticed progressive pain in the left upper chest. He was seen by his primary care physician and underwent a CT scan of the chest on 05/11/2017. That study demonstrated numerous bilateral areas of pleural-based and parenchymal nodularity measuring 2-7 mm in size. There was no calcification or cavitation noted. Ascending aorta was mildly ectatic and measured at 38 mm. There was mild prominence of the central pulmonary artery. In the high posterior) midline dorsal region was in the approximate T2 area there was a subcutaneous soft tissue mass measuring 34 x 25 mm. This was thought to possibly be a large sebaceous cyst. There was a comminuted fracture with approximate 40% volume loss of what appeared to be T4. This involved the left side and relatively blastic in appearance. The patient also underwent a CT scan of the abdomen and pelvis on 05/25/2017. That study demonstrated multiple hypodense nodules in the liver suggestive of diffuse metastatic disease. There were also several peripheral nodules in the spleen that were hypodense suggestive of metastatic changes well. Bladder was mildly distended. The patient was having progressive lower tissue weakness therefore admitted to [facility] 06/04/2017. MRI of the spine: Cervical spine: Focus of marrow signal abnormality at C4 compatible with bony metastasis. ?No pathologic enhancement in the cervical cord. ?Severe degenerative disc disease in the lower cervical spine with Canal stenosis is worst at C5-C6. Thoracic spine: Multiple areas of abnormal marrow signal in the MID thoracic vertebrae. ?T4 is most affected which shows a 50% pathologic compression fracture with abnormal epidural metastatic soft tissue. ?This results in moderate CORD compression at this level without evidence for cord signal abnormality. No evidence of leptomeningeal disease in the thoracic CORD. Lumbar spine: Bony metastasis at the S2 segment. ?Lumbar vertebrae show no evidence of metastatic disease. ?No evidence of leptomeningeal disease. ?Severe neural foraminal stenoses at right L4-L5 and bilateral L5-S1 due to degenerative disc and facet disease. ?No pathologic enhancement involving conus medullaris or cauda equina. Incidentally noted 1.5 cm enhancing lesion in the right lobe of the liver. ?This is suspicious for an additional metastatic focus. He was discharged but presented to emergency room at [facility] a day later with complaints of progressive weakness of the left arm. He was transferred back to [facility] where he underwent a brain MRI that disclosed at least 8 parenchymal brain metastases. His pain was under good control and his spine was thought to be stable for discharge. Plan was for outpatient radiation. Biopsy sample from the liver which was taken during his first hospitalization returned as metastatic melanoma. Previous therapy: 1) WBRT and palliative radiation T2-T5. Presents for ongoing oncologic management. Interim history: He's had remarkable decrease in pain. In fact he rarely takes a Tylenol tablet now. He hasn't taken any Ultram. He says sometimes when he turns a certain way he has some back pain but by far enlarge it is under great control. His appetite however is not doing very well but he is eating more and is taking in boost. He's lost quite a bit of weight however. He still fatigued and somewhat weak. No episodes of jaundice. No abdominal pain. No cough or hemoptysis. PMH, medications and allergies personally reviewed by me today. Any changes documented in appropriate section. ROS: Constitutional: Denies episodes of fever and night sweats. Neuro: Denies DIAZ, vertigo, dizziness. HEENT: No recent change in voice, vision or hearing. Resp: Denies shortness of breath at rest. CVS: Denies exertional chest pain, PND, orthopnea and LE edema. GI: Denies dysgeusia. Denies symptoms of stomatitis. Denies dysphagia and odynophagia. : Denies dysuria or gross hematuria. No symptoms of bladder outlet obstruction. Endo: Denies hot flashes. Denies polyuria and polydipsia. Denies heat and cold intolerance. Musculoskeletal: See above. Derm: Denies rash. Denies jaundice and diffuse pruritis. Heme: Denies unusual bleeding and unexplained bruising. Psych: Normal mood. PHYSICAL EXAM: Vitals: Blood pressure 136/87, pulse 94, temperature 36 ?C (96.8 ?F), temperature source Temporal Artery, resp. rate 20, weight 73.7 kg (162 lb 8 oz), SpO2 96 %. Well-appearing and in no acute distress. EYES: Sclerae are anicteric bilaterally. ENT: Oral mucosa is unremarkable. There is no sign of thrush or mucositis. NECK: Supple. LYMPHATIC: There is no palpable cervical, supraclavicular, axillary or inguinal adenopathy. RESPIRATORY: Inspiratory breath sounds are of diminished intensity in all springer. No rales, wheezes or rhonchi. CARDIOVASCULAR: Rhythm is regular. Normal intensity S1/S2. There is no gallop or murmur. ABDOMEN: The abdomen is nondistended. No organomegaly. No tenderness. Extremities: No swelling or edema. SKIN: No jaundice or rash. No petechiae. Large sebaceous cyst mid right upper back. NEUROLOGIC: In wheel chair. He was able to get on the exam table with assistance. outpatient coding specialist II-XII are grossly intact. Global weakness of both legs. MUSCULOSKELETAL: No muscle wasting. ASSESSMENT/PLAN: (C43.9) Malignant melanoma, unspecified site (HCC) (primary encounter diagnosis) (C78.7) Liver metastases (HCC) (C79.31) Brain metastases (HCC) Assessment: -KPS is 60% -BRAF mutated but not classic V600 mutation. -I discussed with the patient and his family the natural history, treated course, and prognosis of metastatic melanoma and recommended therapy with pembrolizumab. Also discussed the rationale, logistics, potential risks (including ), benefits and alternatives, as well as the personnel involved in the administration of pembrolizumab. I answered his and his family's questions in detail and he verbalized understanding and agreed with the recommended therapy. Please see the electronic consent document for details of doses and schedule. Plan: -Begin treatment tomorrow. -Repeat brain MRI in about 4-6 weeks. -Plan CT scan after 2-3 doses of therapy. Discussed with patient and family that the benefit from immunotherapy can take up to several months however. Akbar Mcarthur DO Referring Provider: AKBAR MCARTHUR [[id number]] Allergies As of Date: 07/06/2017 Noted Allergy Reaction SULFA (SULFONAMIDE ANTIBIOTICS) 08/25/2011 2 - Rash TIZANIDINE 06/04/2017 8 - GI Upset Date Reviewed: 07/06/2017 Reviewed by: Jada Blanc - Fully Assessed Reason for Visit: Established Patient [175] Primary Visit Diagnosis:Malignant melanoma, unspecified site (HCC) [C43.9] Other Visit Diagnoses:Brain metastases (HCC) [C79.31] Liver metastases (HCC) [C78.7] Order(s):MRI BRAIN WO/W IVCON [[id number]] Order #: [id number] FUTURE iv contrast (radiology procedure)MRI Brain Inject, intravenously, once for 1 dose.No IV access, insert saline lock prior to beginning of sedation, infusion, injection of imaging exam.Discontinue saline lock post exam. If Pt. has a central line or IVAD, may access for administration according to line specific nursing protocol.Once exam is complete flush line and de-access according to line specific nursing protocol in the MR contrast administration guidelines linkDisp: 1 EachRfl: 0 Follow-up and Disposition History Recorded Prescriptions as of 07/06/2017 Sig: TRAMADOL 50 MG TABLET EVERY 6 HOURS NEEDED PROCHLORPERAZINE MALEATE 10 M* Take 1 tablet by mouth every * ONDANSETRON 8 MG DISINTEGRATI* Take 1 tablet by mouth every * X DEXAMETHASONE 4 MG TABLET Taper: Take one tab three vitor* OMEPRAZOLE 20 MG CAPSULE,MALISSA* Take 1 capsule by mouth once * COMPOUNDED PRESCRIPTION Outpatient Physical therapy f* GABAPENTIN 300 MG CAPSULE Take 1 capsule by mouth daily* NAPROXEN 500 MG TABLET Take 1 tablet by mouth twice * ACETAMINOPHEN 325 MG TABLET Take 650 mg by mouth every 6 * * ALBUTEROL SULFATE HFA 90 MCG/* Inhale 2 Puffs as instructed * IV CONTRAST (RADIOLOGY PROCED* MRI Brain Inject, intravenous* Medication notes this encounter TRAMADOL 50 MG TABLET >> Akbar Mcarthur DO 07/06/2017 4:26 PM >> AKBRA MCARTHUR DO TueJul 06, 2017 4:26 PM Received from: [employer] Problem List As Of Date 07/06/2017 Noted Resolved Cord compression (HCC) [G95.20] INVALID FOR* More... Nicotine use disorder, F17.2 [F17.200] INVALID FOR* Brain metastases (HCC) [C79.31] INVALID FOR* Malignant melanoma (HCC) [C43.9] INVALID FOR* Liver metastases (HCC) [C78.7] INVALID FOR* Encounter Status:Closed by AKBAR MCARTHUR DO on 07/06/17 CNOV Observed: 07/06/2017 Status: COMPLETED Source: [place] 3:30 PM [facility] REPOSITORY Office Visit (RADTWS) DELMI DEL RIO ([id number]) 1950 M Date Time Provider Department 07/06/17 3:30 PM JAZIEL COLLAZO RADTWS During your visit today, we recorded the following information about you: Temperature Pulse Respiration Blood pressure 96.8 degrees 94/minute 20/minute 136/87 Weight 73.7 kg Alverto Jones, RN, RN 07/06/2017 4:11 PM Signed Radiation Therapy - Nursing Note (Follow-up) PATIENT NAME: Delmi Phillips PATIENT July 06, 2017 [facility] FACILITY/LOCATION: [place] Reason for visit: Follow up. Subjective Data No c/o. Additional Data Do you want to see a Manager Distribution Center? No Nursing Assessment Fatigue: increased fatigue over baseline but not altering normal activities Appetite: good Weight Gain/Loss: No Last 6 Encounter Wt Readings: Date: Wt: 06/28/2017 78.2 kg (172 lb 8 oz) 06/10/2017 83 kg (183 lb) 06/10/2017 84.8 kg (187 lb) 06/03/2017 84.1 kg (185 lb 6.5 oz) 08/25/2011 78 kg (172 lb) Bowel Function: normal bowel movements Bone Pain: none Focused Assessment RFID ANALYST: Alopecia: no. Headache: none. Vision changes: none. Arm/leg numbness: none. Limb coordination: none. Memory changes: none. Syncope: none. Disorientation: none. Seizures: none. Hearing changes: Yes slight. Was KP approved? pt did not receive tablet SIGNED by: TANYA Luke MD 07/08/2017 8:54 AM Signed Radiation Oncology - Follow Up Note PATIENT NAME: Delmi Phillips PATIENT DIAGNOSIS: Metastatic melanoma with multiple brain metastases and bone metastasis with spinal cord compression at T4, s/p palliative radiation treatment to the brain and T2 to T5 finished on 07/01/17. INTERVAL HISTORY: He is here for a routine follow-up one week after completion of radiation treatment. He denies any headaches or nausea. He reports that his left side numbness/tingling has improved much. He denies any back or posterior chest pain. He walks with a walker. He has increased tearing from the left eye and has dry mouth. ALLERGIES Allergen Reactions - Sulfa (Sulfonamide * Rash - Tizanidine GI Upset MEDICATIONS: prochlorperazine (COMPAZINE) 10 mg tablet Take 1 tablet by mouth every 6 hours as needed. ondansetron orally disintegrating (ZOFRAN ODT) 8 mg disintegrating tablet Take 1 tablet by mouth every 8 hours as needed. dexamethasone (DECADRON) 4 mg tablet Taper: Take one tab three times daily for four days, then take one tab twice daily for four day, then take one tab once daily omeprazole (PRILOSEC) 20 mg capsule Take 1 capsule by mouth once daily. COMPOUNDED PRESCRIPTION Outpatient Physical therapy for weakness due to his metastatic malignancy. gabapentin (NEURONTIN) 300 mg capsule Take 1 capsule by mouth daily at bedtime for 30 days. acetaminophen (TYLENOL) 325 mg tablet Take 650 mg by mouth every 6 hours as needed. albuterol HFA (VENTOLIN HFA) 90 mcg/actuation inhaler Inhale 2 Puffs as instructed every 6 hours as needed. naproxen (NAPROSYN) 500 mg tablet Take 1 tablet by mouth twice daily with meals. PHYSICAL EXAM: VS: BP 160/93 (BP Site: Right Arm, BP Position: Sitting, BP Cuff Size: Regular Adult) Pulse 108 Temp 36 ?C (96.8 ?F) (Temporal Artery) Resp 20 SpO2 96% KPS: 70 General Appearance: Alert and oriented. No acute distress. HEENT: Partial alopecia and moderate erythema of the scalp. ASSESSMENT AND PLAN: Clinically stable. Continue skin care with Aquaphor cream. Artifical tear eye drops as needed. I will taper off steroids. He will see Dr. Mcarthur today to discuss Keytruda. I will see him in three months for a routine follow-up. Signed by: Jaziel Collazo MD cc: Jerry Aguirre, [employer] [address] [place] [address] Referring Provider: JAZIEL COLLAZO [[id number]] Allergies As of Date: 07/06/2017 Noted Allergy Reaction SULFA (SULFONAMIDE ANTIBIOTICS) 08/25/2011 2 - Rash TIZANIDINE 06/04/2017 8 - GI Upset Date Reviewed: 07/06/2017 Reviewed by: Jada Blanc - Fully Assessed Reason for Visit: Recheck [92] Primary Visit Diagnosis:Brain metastases (HCC) [C79.31] Order(s):dexamethasone (DECADRON) 0.75 mg tabletTaper: Take two tabs once daily for five days, then take one tab once daily for five days.Disp: 15 tabletRfl: 0 Prescriptions as of 07/06/2017 Sig: PROCHLORPERAZINE MALEATE 10 M* Take 1 tablet by mouth every * ONDANSETRON 8 MG DISINTEGRATI* Take 1 tablet by mouth every * OMEPRAZOLE 20 MG CAPSULE,MALISSA* Take 1 capsule by mouth once * COMPOUNDED PRESCRIPTION Outpatient Physical therapy f* GABAPENTIN 300 MG CAPSULE Take 1 capsule by mouth daily* ACETAMINOPHEN 325 MG TABLET Take 650 mg by mouth every 6 * * ALBUTEROL SULFATE HFA 90 MCG/* Inhale 2 Puffs as instructed * DEXAMETHASONE 0.75 MG TABLET Taper: Take two tabs once violetta* NAPROXEN 500 MG TABLET Take 1 tablet by mouth twice * Problem List As Of Date 07/06/2017 Noted Resolved Cord compression (HCC) [G95.20] INVALID FOR* More... Nicotine use disorder, F17.2 [F17.200] INVALID FOR* Brain metastases (HCC) [C79.31] INVALID FOR* Malignant melanoma (HCC) [C43.9] INVALID FOR* Liver metastases (HCC) [C78.7] INVALID FOR* Visit Notes: >> Alverto Morrow) TANYA Jones TueJul 06, 2017 4:07 PM Status: Signed Radiation Therapy - Nursing Note (Follow-up) PATIENT NAME: Delmi Phillips PATIENT July 06, 2017 [facility] FACILITY/LOCATION: [place] Reason for visit: Follow up. Subjective Data No c/o. Additional Data Do you want to see a Manager Distribution Center? No Nursing Assessment Fatigue: increased fatigue over baseline but not altering normal activities Appetite: good Weight Gain/Loss: No Last 6 Encounter Wt Readings: Date: Wt: 06/28/2017 78.2 kg (172 lb 8 oz) 06/10/2017 83 kg (183 lb) 06/10/2017 84.8 kg (187 lb) 06/03/2017 84.1 kg (185 lb 6.5 oz) 08/25/2011 78 kg (172 lb) Bowel Function: normal bowel movements Bone Pain: none Focused Assessment RFID ANALYST: Alopecia: no. Headache: none. Vision changes: none. Arm/leg numbness: none. Limb coordination: none. Memory changes: none. Syncope: none. Disorientation: none. Seizures: none. Hearing changes: Yes slight. Was KP approved? pt did not receive tablet SIGNED by: Alverto Jones RN Prescriptions ordered this encounter Disp Refills Start End DEXAMETHASONE 0.75 MG TABLET 15 t* 0 07/06/2017 Sig: Taper: Take two tabs once daily for five days, then take one tab once daily for five days. Medications Discontinued During This Encounter dexamethasone (DECADRON) 4 mg tablet 30 t* 0 06/21/2017 07/06/2017 Sig: Taper: Take one tab three times daily for four days, then take one tab twice daily for four day, then take one tab once daily Disc: Reason for discontinue is not on file. Encounter Status:Closed by JAZIEL COLLAZO MD on 07/08/17 CNSW Observed: 07/06/2017 Status: COMPLETED Source: [place] 12:00 AM [facility] REPOSITORY Social Work ([place]) DELMI PHILLIPS ([id number]) 1950 M Date Time Provider Department 07/06/17 GLADYS PEREZ) JOSSY During your visit today, we recorded the following information about you: JAYLENE Zavala 07/06/2017 4:48 PM Signed Social Work Problem Referral Note INFORMATION/REFERRAL : Delmi Phillips 66 year old male was referred by [facility] to [facility] for the following reason(s): Palliative care information PERSONS INTERVIEWED: family INTERVENTION: Information ANDamp; Referral Service Co-ordination Affect/Mood: The patient is noted as did not assess patient IDENTIFIED PROBLEMS/NEEDS: Referral Intervention/Referral to be provided:Arrangements made for continuity of care Information for community resources/agencies IMPRESSION/PLAN: SPIKE met with patient's daughter to answer questions about palliative care. SPIKE informed her that [facility] offers palliative care and discussed with her the referral process. Patient's daughter will look into this and consult with SPIKE tomorrow about her decision on whether or not they want to pursue these services. F/U APPOINTMENT: 07/07/17 JAYLENE Zavala Allergies As of Date: 07/06/2017 Noted Allergy Reaction SULFA (SULFONAMIDE ANTIBIOTICS) 08/25/2011 2 - Rash TIZANIDINE 06/04/2017 8 - GI Upset Date Reviewed: 07/06/2017 Reviewed by: Jada Blanc - Fully Assessed Reason for Visit: Social Work Services [507] Cmt: community resource information Prescriptions as of 07/06/2017 Sig: DEXAMETHASONE 0.75 MG TABLET Taper: Take two tabs once violetta* TRAMADOL 50 MG TABLET EVERY 6 HOURS NEEDED IV CONTRAST (RADIOLOGY PROCED* MRI Brain Inject, intravenous* PROCHLORPERAZINE MALEATE 10 M* Take 1 tablet by mouth every * ONDANSETRON 8 MG DISINTEGRATI* Take 1 tablet by mouth every * OMEPRAZOLE 20 MG CAPSULE,MALISSA* Take 1 capsule by mouth once * COMPOUNDED PRESCRIPTION Outpatient Physical therapy f* GABAPENTIN 300 MG CAPSULE Take 1 capsule by mouth daily* NAPROXEN 500 MG TABLET Take 1 tablet by mouth twice * ACETAMINOPHEN 325 MG TABLET Take 650 mg by mouth every 6 * * ALBUTEROL SULFATE HFA 90 MCG/* Inhale 2 Puffs as instructed * Problem List As Of Date 07/06/2017 Noted Resolved Cord compression (HCC) [G95.20] INVALID FOR* More... Nicotine use disorder, F17.2 [F17.200] INVALID FOR* Brain metastases (HCC) [C79.31] INVALID FOR* Malignant melanoma (HCC) [C43.9] INVALID FOR* Liver metastases (HCC) [C78.7] INVALID FOR* Encounter Status:Closed by GLADYS PEREZ on 07/06/17 ALICIA Observed: 07/03/2017 Status: COMPLETED Source: [place] 12:00 AM [facility] REPOSITORY Telephone (HE[facility]) DELMI PHILLIPS ([id number]) 1950 M Date Time Provider Department 07/03/17 AKBAR MCARTHUR During your visit today, we recorded the following information about you: Akbar Mcarthur DO 07/03/2017 9:00 AM Signed Can let his daughter Maria L know that the results of the BRAF testing were negative for the mutation associated with response to oral medication. I'm going to recommend that we start therapy with Keytruda. I'm seeing him on Tuesday to discuss and consent. Orders are placed so we may go ahead with the prior authorization process. DO Chela Crandall LPN, [facility] 07/04/2017 8:40 AM Signed Pt. Notified of results, voiced understanding. Will keep scheduled appt. Wed. to discuss further. Chela Young LPN Allergies As of Date: 07/03/2017 Noted Allergy Reaction SULFA (SULFONAMIDE ANTIBIOTICS) 08/25/2011 2 - Rash TIZANIDINE 06/04/2017 8 - GI Upset Date Reviewed: 06/28/2017 Reviewed by: Ellen (Rn) TANYA Enrique - Fully Assessed Reason for Visit: Results [95] Prescriptions as of 07/03/2017 Sig: PROCHLORPERAZINE MALEATE 10 M* Take 1 tablet by mouth every * ONDANSETRON 8 MG DISINTEGRATI* Take 1 tablet by mouth every * DEXAMETHASONE 4 MG TABLET Taper: Take one tab three vitor* OMEPRAZOLE 20 MG CAPSULE,MALISSA* Take 1 capsule by mouth once * COMPOUNDED PRESCRIPTION Outpatient Physical therapy f* GABAPENTIN 300 MG CAPSULE Take 1 capsule by mouth daily* NAPROXEN 500 MG TABLET Take 1 tablet by mouth twice * ACETAMINOPHEN 325 MG TABLET Take 650 mg by mouth every 6 * * ALBUTEROL SULFATE HFA 90 MCG/* Inhale 2 Puffs as instructed * Problem List As Of Date 07/03/2017 Noted Resolved Cord compression (HCC) [G95.20] INVALID FOR* More... Nicotine use disorder, F17.2 [F17.200] INVALID FOR* Brain metastases (HCC) [C79.31] INVALID FOR* Malignant melanoma (HCC) [C43.9] INVALID FOR* Liver metastases (HCC) [C78.7] INVALID FOR* Encounter Status:Closed by CHELA YOUNG on 07/04/17 CNCNPATED Observed: 07/01/2017 Status: COMPLETED Source: [place] 12:00 AM [facility] REPOSITORY Education (RADTWS) DELMI PHILLIPS ([id number]) 1950 M Date Time Provider Department 07/01/17 STEFFANY PÉREZ Reason for Visit: discharge instructions [Other] Cmt: completed radiation Visit Notes: >> Alverto KoehlerRn) TANYA Jones TueJul 01, 2017 2:54 PM Status: Signed AMBULATORY PATIENT EDUCATION NOTE TOPIC: SURVIVAL SKILLS: Symptom Management READINESS TO LEARN COGNITIVE ABILITY: Alert and oriented MOTIVATION TO LEARN: Eager Interested FAMILY SUPPORT: High - Very involved in pt care INSTRUCTION PROVIDED TO: Patient and family member PATIENT LEARNS BEST BY: Multiple Methods FACTORS AFFECTING LEARNING: None PHYSICAL LIMITATIONS AFFECTING LEARNING: Pain , Fatigue and Limited Mobility LEARNING RESPONSE DIAGNOSIS: C79.31 METHOD OF INSTRUCTION: Teach Back skin care Individual instruction Written instruction - handouts Verbal instruction PATIENT / FAMILY RESPONSE: Verbalizes understanding of: SYMPTOM MANAGEMENT-Correct actions to take to manage symptoms associated with his/her disease/illness FOLLOW-UP PLAN: Patient instructed to call with any further issues Reinforce - Repeat previous content Contact information given. SUPPLEMENTAL MATERIAL: D/C sheet REFERRAL (RECOMMENDATION): None Written discharge instructions given and reviewed with patient. Patient verbalizes understanding. Encouraged to call with any questions or concerns. Instruction for 1 week follow up appointment given per Dr. Collazo instructions. Per pt and family Dr Collazo gave taper instructions when here for OTV on 06/28/17 and they verbalized understanding. I also advised that if his balance declines or change in coordination to call the office. Electronically Signed By: Alverto Jones RN In Department: RADIATION ONCOLOGY During your visit today, we recorded the following information about you: Allergies As of Date: 07/01/2017 Noted Allergy Reaction SULFA (SULFONAMIDE ANTIBIOTICS) 08/25/2011 2 - Rash TIZANIDINE 06/04/2017 8 - GI Upset Date Reviewed: 06/28/2017 Reviewed by: Ellen (Rn) TANYA Enrique - Fully Assessed Prescriptions as of 07/01/2017 Sig: PROCHLORPERAZINE MALEATE 10 M* Take 1 tablet by mouth every * ONDANSETRON 8 MG DISINTEGRATI* Take 1 tablet by mouth every * DEXAMETHASONE 4 MG TABLET Taper: Take one tab three vitor* OMEPRAZOLE 20 MG CAPSULE,MALISSA* Take 1 capsule by mouth once * COMPOUNDED PRESCRIPTION Outpatient Physical therapy f* GABAPENTIN 300 MG CAPSULE Take 1 capsule by mouth daily* NAPROXEN 500 MG TABLET Take 1 tablet by mouth twice * ACETAMINOPHEN 325 MG TABLET Take 650 mg by mouth every 6 * * ALBUTEROL SULFATE HFA 90 MCG/* Inhale 2 Puffs as instructed * Encounter Status:Closed by ALVERTO JONES on 07/01/17 PROGRESS Observed: 07/01/2017 Status: COMPLETED Source: [place] 12:00 AM [facility] REPOSITORY HNO ID: [id number] Author: Jaziel Collazo Service: (none) Author Type: Physician Type: Progress Notes Filed: 07/06/2017 12:35 AM Note Text: DELMI PHILLIPS [id number] : 1950 07/01/2017 [facility] Department of Radiation Oncology RADIATION ONCOLOGY - COMPLETION NOTE DATE OF SIMULATION: 06/10/17 DATES OF TREATMENT: 06/13/17 to 07/01/17 UNIT: W_[facility] AREA TREATED: Brain, T2 to T5. 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 DELIVERED DOSE: 3000 cGy in 10 fractions to the T2 to T5 and 3750 cGy in 15 fraction to the brain treating to the [id number]% isodose line with 6AND15 MV and 4 springer. ELAPSED TIME: 11 days for T2 to T5 and 18 days for the brain. TOLERANCE/ RESPONSE: He has nausea treated with Compazine. REMARKS: He tolerated radiation treatment well. Decadron will be tapered. I will see him in one week for a routine follow-up and his steroids will be adjusted further. Electronically Signed JAZIEL COLLAZO M.D. 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 COURSE: palliative AREA TREATED: T2 to T5 and Brain CURRENT DOSE: 3000 cGy in 10 fx to T2-T5, 3000 cGy in 12 fx to brain PLANNED DOSE: 3000 cGy in 10 fx to T2-T5, 3750 cGy in 15 fx to brain SUBJECTIVE: He has nausea started yesterday. He denies any headaches. He denies any sore throat or odynophagia/dysphagia. He is on Prilosec. EXAM: KPS: 70 BP 143/85 Pulse 81 Temp (!) 35.8 ?C (96.4 ?F) (Temporal Artery) Wt 78.2 kg (172 lb 8 oz) SpO2 97% BMI 24.75 kg/m2 General Appearance: Alert and oriented. No acute distress. Radiation dermatitis: Mild erythema of the scalp. IMAGING/LAB RESULTS: None. Treatment chart checked: Yes Patient treatment site reviewed and verified:Yes Port films reviewed and current:Yes Medications started: He is on Decadron 4mg tid now. Zofran as needed. ASSESSMENT/PLAN: Clinically stable. Toxicity within expected parameters. Continue radiation treatment as planned. Jaziel Collazo MD CNOV Observed: 06/28/2017 Status: COMPLETED Source: [place] 3:00 PM [facility] REPOSITORY Office Visit (RADTWS) DELMI DEL RIO ([id number]) 1950 M Date Time Provider Department 06/28/17 3:00 PM JAZIEL COLLAZO During your visit today, we recorded the following information about you: Temperature Pulse Blood pressure Weight 96.4 degrees 81/minute 143/85 78.2 kg Ellen Enrique, RN, RN 06/28/2017 3:07 PM Signed Radiation Therapy - Nursing Note (OTV) PATIENT NAME: Delmi Phillips PATIENT June 28, 2017 [facility] FACILITY/LOCATION: [facility] NURSING NOTE TYPE: RFID ANALYST Subjective Data No c/o Additional Data Do you want to see a Manager Distribution Center? No Status: Patient is male Stress Scale: On a scale of 0 to 10, what number best describes how much distress you have experienced in the past week?(0 being no distress and 10 being extreme distress) 1 Social work notified: no Nursing Assessment Fatigue: increased fatigue over baseline but not altering normal activities Appetite: good Nutritional Intake: Regular oral intake. Weight Gain/Loss: Yes Ambulatory weight history: Last 6 Encounter Wt Readings: Date: Wt: 06/28/2017 78.2 kg (172 lb 8 oz) 06/10/2017 83 kg (183 lb) 06/10/2017 84.8 kg (187 lb) 06/03/2017 84.1 kg (185 lb 6.5 oz) 08/25/2011 78 kg (172 lb) Nausea: Nausea does not interfere with the ability to eat Vomitin-5 episodes in 24 hours Bowel Function: normal bowel movements Erythema/Hyperpigmentation:none Desquamation:none Rash:none Skin Care: Aquaphor Skin Sensation: None. Focused Assessment RFID ANALYST: Alopecia: no. Headache: none. Vision changes: none. Arm/leg numbness: none. Limb coordination: none. Memory changes: none. Syncope: none. Disorientation: none. Seizures: none. Hearing changes: No. BP repeated ANDamp; remains elevated. Dr. Collazo notified. Patient instructed to follow up with PCP within 30 days. 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 COURSE: palliative AREA TREATED: T2 to T5 and Brain CURRENT DOSE: 3000 cGy in 10 fx to T2-T5, 3000 cGy in 12 fx to brain PLANNED DOSE: 3000 cGy in 10 fx to T2-T5, 3750 cGy in 15 fx to brain SUBJECTIVE: He has nausea started yesterday. He denies any headaches. He denies any sore throat or odynophagia/dysphagia. He is on Prilosec. EXAM: KPS: 70 BP 143/85 Pulse 81 Temp (!) 35.8 ?C (96.4 ?F) (Temporal Artery) Wt 78.2 kg (172 lb 8 oz) SpO2 97% BMI 24.75 kg/m2 General Appearance: Alert and oriented. No acute distress. Radiation dermatitis: Mild erythema of the scalp. IMAGING/LAB RESULTS: None. Treatment chart checked: Yes Patient treatment site reviewed and verified:Yes Port films reviewed and current:Yes Medications started: He is on Decadron 4mg tid now. Zofran as needed. ASSESSMENT/PLAN: Clinically stable. Toxicity within expected parameters. Continue radiation treatment as planned. Jaziel Collazo MD Allergies As of Date: 06/28/2017 Noted Allergy Reaction SULFA (SULFONAMIDE ANTIBIOTICS) 08/25/2011 2 - Rash TIZANIDINE 06/04/2017 8 - GI Upset Date Reviewed: 06/28/2017 Reviewed by: Ellen (Rn) TANYA Enrique - Fully Assessed Reason for Visit: Radiotherapy On-treatment Visit [1722] Primary Visit Diagnosis:Brain metastases (HCC) [C79.31] Other Visit Diagnosis:Cord compression (HCC) [G95.20] Order(s):ondansetron orally disintegrating (ZOFRAN ODT) 8 mg disintegrating tabletTake 1 tablet by mouth every 8 hours as needed.Disp: 20 tabletRfl: 1 Prescriptions as of 06/28/2017 Sig: DEXAMETHASONE 4 MG TABLET Taper: Take one tab three vitor* OMEPRAZOLE 20 MG CAPSULE,MALISSA* Take 1 capsule by mouth once * GABAPENTIN 300 MG CAPSULE Take 1 capsule by mouth daily* NAPROXEN 500 MG TABLET Take 1 tablet by mouth twice * ACETAMINOPHEN 325 MG TABLET Take 650 mg by mouth every 6 * * ALBUTEROL SULFATE HFA 90 MCG/* Inhale 2 Puffs as instructed * ONDANSETRON 8 MG DISINTEGRATI* Take 1 tablet by mouth every * COMPOUNDED PRESCRIPTION Outpatient Physical therapy f* Problem List As Of Date 06/28/2017 Noted Resolved Cord compression (HCC) [G95.20] INVALID FOR* More... Nicotine use disorder, F17.2 [F17.200] INVALID FOR* Brain metastases (HCC) [C79.31] INVALID FOR* Malignant melanoma (HCC) [C43.9] INVALID FOR* Visit Notes: >> Ellen (Rn) TANYA Enrique Jun 28, 2017 3:03 PM Status: Signed Radiation Therapy - Nursing Note (OTV) PATIENT NAME: Delmi Phillips PATIENT June 28, 2017 [facility] FACILITY/LOCATION: [facility] NURSING NOTE TYPE: RFID ANALYST Subjective Data No c/o Additional Data Do you want to see a Manager Distribution Center? No Status: Patient is male Stress Scale: On a scale of 0 to 10, what number best describes how much distress you have experienced in the past week?(0 being no distress and 10 being extreme distress) 1 Social work notified: no Nursing Assessment Fatigue: increased fatigue over baseline but not altering normal activities Appetite: good Nutritional Intake: Regular oral intake. Weight Gain/Loss: Yes Ambulatory weight history: Last 6 Encounter Wt Readings: Date: Wt: 06/28/2017 78.2 kg (172 lb 8 oz) 06/10/2017 83 kg (183 lb) 06/10/2017 84.8 kg (187 lb) 06/03/2017 84.1 kg (185 lb 6.5 oz) 08/25/2011 78 kg (172 lb) Nausea: Nausea does not interfere with the ability to eat Vomitin-5 episodes in 24 hours Bowel Function: normal bowel movements Erythema/Hyperpigmentation:none Desquamation:none Rash:none Skin Care: Aquaphor Skin Sensation: None. Focused Assessment RFID ANALYST: Alopecia: no. Headache: none. Vision changes: none. Arm/leg numbness: none. Limb coordination: none. Memory changes: none. Syncope: none. Disorientation: none. Seizures: none. Hearing changes: No. BP repeated AND remains elevated. Dr. Collazo notified. Patient instructed to follow up with PCP within 30 days. SIGNED by: Ellen Enrique RN Prescriptions ordered this encounter Disp Refills Start End ONDANSETRON 8 MG DISINTEGRATING TABL* 20 t* 1 06/28/2017 Route: ORAL Sig: Take 1 tablet by mouth every 8 hours as needed. 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 COURSE: palliative AREA TREATED: T2 to T5 and Brain CURRENT DOSE: 2100 cGy in 7 fx to T2-T5, 1750 cGy in 7 fx to brain PLANNED DOSE: 3000 cGy in 10 fx to T2-T5, 3750 cGy in 15 fx to brain SUBJECTIVE: He is doing well without any specific new complaints. He denies any headaches or nausea. He denies any numbness/tingling in the left arm/leg. He denies any odynophagia/dysphagia or heartburn. EXAM: KPS: 70 BP 154/75 (BP Site: Right Arm, BP Position: Sitting, BP Cuff Size: Regular Adult) Pulse 85 Temp 36.7 ?C (98.1 ?F) (Temporal Artery) Resp 20 SpO2 97% General Appearance: Alert and oriented. No acute distress. Radiation dermatitis: No IMAGING/LAB RESULTS: None. Treatment chart checked: Yes Patient treatment site reviewed and verified:Yes Port films reviewed and current:Yes Medications started: Taper down steroids. ASSESSMENT/PLAN: Clinically improved. No signs of toxicity. I instructed him that he cannot drive a car. He expressed understandings. Continue radiation treatment as planned. Jaziel Collazo MD CNOV Observed: 06/21/2017 Status: COMPLETED Source: [place] 3:00 PM [facility] REPOSITORY Office Visit (RADTWS) DELMI PHILLIPS ([id number]) 1950 M Date Time Provider Department 06/21/17 3:00 PM JAZIEL COLLAZO During your visit today, we recorded the following information about you: Temperature Pulse Respiration Blood pressure 98.1 degrees 85/minute 20/minute 154/75 Alverto Jones, RN, RN 06/21/2017 3:07 PM Signed Radiation Therapy - Nursing Note (OTV) PATIENT NAME: Delmi Phillips PATIENT June 21, 2017 [facility] FACILITY/LOCATION: [facility] NURSING NOTE TYPE: Brain/T2-T5 Subjective Data No c/o. Additional Data Do you want to see a Manager Distribution Center? No Status: Patient is male Stress Scale: On a scale of 0 to 10, what number best describes how much distress you have experienced in the past week?(0 being no distress and 10 being extreme distress) 2 Social work notified: Pt denied need to see mental health social worker at this time. Nursing Assessment Fatigue: none Appetite: good Nutritional Intake: Regular oral intake. Weight Gain/Loss: No Ambulatory weight history: Last 6 Encounter Wt Readings: Date: Wt: 06/10/2017 83 kg (183 lb) 06/10/2017 84.8 kg (187 lb) 06/03/2017 84.1 kg (185 lb 6.5 oz) 08/25/2011 78 kg (172 lb) Nausea:None Vomiting: None Bowel Function: constipation 2 - bowel movement every 4 - 5 days Erythema/Hyperpigmentation:none Desquamation:none Rash:none Skin Care: Aquaphor Skin Sensation: none itching and none burning Focused Assessment RFID ANALYST: Alopecia: no. Headache: none. Vision changes: none. Arm/leg numbness: none. Limb coordination: none. Memory changes: none. Syncope: none. Disorientation: none. Seizures: none. Hearing changes: No. 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 COURSE: palliative AREA TREATED: T2 to T5 and Brain CURRENT DOSE: 2100 cGy in 7 fx to T2-T5, 1750 cGy in 7 fx to brain PLANNED DOSE: 3000 cGy in 10 fx to T2-T5, 3750 cGy in 15 fx to brain SUBJECTIVE: He is doing well without any specific new complaints. He denies any headaches or nausea. He denies any numbness/tingling in the left arm/leg. He denies any odynophagia/dysphagia or heartburn. EXAM: KPS: 70 BP 154/75 (BP Site: Right Arm, BP Position: Sitting, BP Cuff Size: Regular Adult) Pulse 85 Temp 36.7 ?C (98.1 ?F) (Temporal Artery) Resp 20 SpO2 97% General Appearance: Alert and oriented. No acute distress. Radiation dermatitis: No IMAGING/LAB RESULTS: None. Treatment chart checked: Yes Patient treatment site reviewed and verified:Yes Port films reviewed and current:Yes Medications started: Taper down steroids. ASSESSMENT/PLAN: Clinically improved. No signs of toxicity. I instructed him that he cannot drive a car. He expressed understandings. Continue radiation treatment as planned. Jaziel Collazo MD Allergies As of Date: 06/21/2017 Noted Allergy Reaction SULFA (SULFONAMIDE ANTIBIOTICS) 08/25/2011 2 - Rash TIZANIDINE 06/04/2017 8 - GI Upset Date Reviewed: 06/21/2017 Reviewed by: Alverto (Rn) TANYA Jones - Fully Assessed Reason for Visit: OTV [Other] Primary Visit Diagnosis:Brain metastases (HCC) [C79.31] Order(s):dexamethasone (DECADRON) 4 mg tabletTaper: Take one tab three times daily for four days, then take one tab twice daily for four day, then take one tab once dailyDisp: 30 tabletRfl: 0 Prescriptions as of 06/21/2017 Sig: OMEPRAZOLE 20 MG CAPSULE,MALISSA* Take 1 capsule by mouth once * COMPOUNDED PRESCRIPTION Outpatient Physical therapy f* GABAPENTIN 300 MG CAPSULE Take 1 capsule by mouth daily* NAPROXEN 500 MG TABLET Take 1 tablet by mouth twice * ACETAMINOPHEN 325 MG TABLET Take 650 mg by mouth every 6 * * ALBUTEROL SULFATE HFA 90 MCG/* Inhale 2 Puffs as instructed * DEXAMETHASONE 4 MG TABLET Taper: Take one tab three vitor* Problem List As Of Date 06/21/2017 Noted Resolved Cord compression (HCC) [G95.20] INVALID FOR* More... Nicotine use disorder, F17.2 [F17.200] INVALID FOR* Brain metastases (HCC) [C79.31] INVALID FOR* Malignant melanoma (HCC) [C43.9] INVALID FOR* Visit Notes: >> Alverto (Rn) TANYA Jones Jun 21, 2017 2:59 PM Status: Signed Radiation Therapy - Nursing Note (OTV) PATIENT NAME: Delmi Phillips PATIENT June 21, 2017 [facility] FACILITY/LOCATION: [facility] NURSING NOTE TYPE: Brain/T2-T5 Subjective Data No c/o. Additional Data Do you want to see a Manager Distribution Center? No Status: Patient is male Stress Scale: On a scale of 0 to 10, what number best describes how much distress you have experienced in the past week?(0 being no distress and 10 being extreme distress) 2 Social work notified: Pt denied need to see mental health social worker at this time. Nursing Assessment Fatigue: none Appetite: good Nutritional Intake: Regular oral intake. Weight Gain/Loss: No Ambulatory weight history: Last 6 Encounter Wt Readings: Date: Wt: 06/10/2017 83 kg (183 lb) 06/10/2017 84.8 kg (187 lb) 06/03/2017 84.1 kg (185 lb 6.5 oz) 08/25/2011 78 kg (172 lb) Nausea:None Vomiting: None Bowel Function: constipation 2 - bowel movement every 4 - 5 days Erythema/Hyperpigmentation:none Desquamation:none Rash:none Skin Care: Aquaphor Skin Sensation: none itching and none burning Focused Assessment RFID ANALYST: Alopecia: no. Headache: none. Vision changes: none. Arm/leg numbness: none. Limb coordination: none. Memory changes: none. Syncope: none. Disorientation: none. Seizures: none. Hearing changes: No. and pt denies difficulty swallowing or pain with swallowing SIGNED by: Alverto Jones RN Prescriptions ordered this encounter Disp Refills Start End DEXAMETHASONE 4 MG TABLET 30 t* 0 06/21/2017 Sig: Taper: Take one tab three times daily for four days, then take one tab twice daily for four day, then take one tab once daily Medications Discontinued During This Encounter dexamethasone (DECADRON) 4 mg tablet 60 t* 1 06/10/2017 06/21/2017 Sig: Take one tab by mouth four times daily Disc: Reason for discontinue is not on file. 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 COURSE: palliative AREA TREATED: T2 to T5 and Brain CURRENT DOSE: 600 cGy in 2 fx to T2-T5, 500 cGy in 2 fx to brain PLANNED DOSE: 3000 cGy in 10 fx to T2-T5, 3750 cGy in 15 fx to brain SUBJECTIVE: He is doing well without any specific new complaints. He denies any headaches or nausea. He reports that tingling in the left side has improved but he still has residual tingling in the left arm. EXAM: KPS: 70 BP 158/86 Pulse 84 Temp 37.3 ?C (99.1 ?F) (Temporal Artery) Resp 20 SpO2 96% General Appearance: Alert and oriented. No acute distress. Radiation dermatitis: No IMAGING/LAB RESULTS: None Treatment chart checked: Yes Patient treatment site reviewed and verified:Yes Port films reviewed and current:Yes Medications started: None ASSESSMENT/PLAN: Clinically stable. No signs of toxicity. Continue radiation treatment as planned. Jaziel Collazo MD CNOV Observed: 06/14/2017 Status: COMPLETED Source: [place] 2:45 PM [facility] REPOSITORY Office Visit (RADTWS) DELMI PHILLIPS ([id number]) 1950 M Date Time Provider Department 06/14/17 2:45 PM JAZIEL COLLAZO [facility] During your visit today, we recorded the following information about you: Temperature Pulse Respiration Blood pressure 99.1 degrees 84/minute 20/minute 158/86 Ellen Enrique, RN, RN 06/14/2017 3:00 PM Signed Radiation Therapy - Nursing Note (OTV) PATIENT NAME: Delmi Phillips PATIENT June 14, 2017 [facility] FACILITY/LOCATION: [facility] NURSING NOTE TYPE: RFID ANALYST Subjective Data No c/o Additional Data Do you want to see a Manager Distribution Center? No Status: Patient is male Stress Scale: On a scale of 0 to 10, what number best describes how much distress you have experienced in the past week?(0 being no distress and 10 being extreme distress) 2 Social work notified: no Nursing Assessment Fatigue: none Appetite: good Nutritional Intake: Regular oral intake. Weight Gain/Loss: No Ambulatory weight history: Last 6 Encounter Wt Readings: Date: Wt: 06/10/2017 83 kg (183 lb) 06/10/2017 84.8 kg (187 lb) 06/03/2017 84.1 kg (185 lb 6.5 oz) 08/25/2011 78 kg (172 lb) Nausea:None Vomiting: None Bowel Function: normal bowel movements Erythema/Hyperpigmentation:none Desquamation:none Rash:none Skin Care: Aquaphor Skin Sensation: None. Focused Assessment RFID ANALYST: Alopecia: no. Headache: none. Vision changes: none. Arm/leg numbness: none. Limb coordination: none. Memory changes: none. Syncope: none. Disorientation: none. Seizures: none. Hearing changes: No. Spin- no c/o BP repeated ANDamp; remains elevated. Dr. Collazo notified. Patient instructed to follow up with PCP within 30 days. 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 COURSE: palliative AREA TREATED: T2 to T5 and Brain CURRENT DOSE: 600 cGy in 2 fx to T2-T5, 500 cGy in 2 fx to brain PLANNED DOSE: 3000 cGy in 10 fx to T2-T5, 3750 cGy in 15 fx to brain SUBJECTIVE: He is doing well without any specific new complaints. He denies any headaches or nausea. He reports that tingling in the left side has improved but he still has residual tingling in the left arm. EXAM: KPS: 70 BP 158/86 Pulse 84 Temp 37.3 ?C (99.1 ?F) (Temporal Artery) Resp 20 SpO2 96% General Appearance: Alert and oriented. No acute distress. Radiation dermatitis: No IMAGING/LAB RESULTS: None Treatment chart checked: Yes Patient treatment site reviewed and verified:Yes Port films reviewed and current:Yes Medications started: None ASSESSMENT/PLAN: Clinically stable. No signs of toxicity. Continue radiation treatment as planned. Jaziel Collazo MD Allergies As of Date: 06/14/2017 Noted Allergy Reaction SULFA (SULFONAMIDE ANTIBIOTICS) 08/25/2011 2 - Rash TIZANIDINE 06/04/2017 8 - GI Upset Date Reviewed: 06/14/2017 Reviewed by: Ellen (Tanya) TANYA Enrique - Fully Assessed Reason for Visit: Radiotherapy On-treatment Visit [1722] Primary Visit Diagnosis:Brain metastases (HCC) [C79.31] Other Visit Diagnosis:Cord compression (HCC) [G95.20] Prescriptions as of 06/14/2017 Sig: DEXAMETHASONE 4 MG TABLET Take one tab by mouth four ti* OMEPRAZOLE 20 MG CAPSULE,MALISSA* Take 1 capsule by mouth once * COMPOUNDED PRESCRIPTION Outpatient Physical therapy f* GABAPENTIN 300 MG CAPSULE Take 1 capsule by mouth daily* TRAMADOL 50 MG TABLET Take 1 tablet by mouth every * NAPROXEN 500 MG TABLET Take 1 tablet by mouth twice * ACETAMINOPHEN 325 MG TABLET Take 650 mg by mouth every 6 * * ALBUTEROL SULFATE HFA 90 MCG/* Inhale 2 Puffs as instructed * Problem List As Of Date 06/14/2017 Noted Resolved Cord compression (HCC) [G95.20] INVALID FOR* More... Nicotine use disorder, F17.2 [F17.200] INVALID FOR* Brain metastases (HCC) [C79.31] INVALID FOR* Malignant melanoma (HCC) [C43.9] INVALID FOR* Visit Notes: >> Ellen (Tanya) TANYA Enrique Jun 14, 2017 2:54 PM Status: Signed Radiation Therapy - Nursing Note (OTV) PATIENT NAME: Delmi Phillips PATIENT June 14, 2017 [facility] FACILITY/LOCATION: [facility] NURSING NOTE TYPE: RFID ANALYST Subjective Data No c/o Additional Data Do you want to see a Manager Distribution Center? No Status: Patient is male Stress Scale: On a scale of 0 to 10, what number best describes how much distress you have experienced in the past week?(0 being no distress and 10 being extreme distress) 2 Social work notified: no Nursing Assessment Fatigue: none Appetite: good Nutritional Intake: Regular oral intake. Weight Gain/Loss: No Ambulatory weight history: Last 6 Encounter Wt Readings: Date: Wt: 06/10/2017 83 kg (183 lb) 06/10/2017 84.8 kg (187 lb) 06/03/2017 84.1 kg (185 lb 6.5 oz) 08/25/2011 78 kg (172 lb) Nausea:None Vomiting: None Bowel Function: normal bowel movements Erythema/Hyperpigmentation:none Desquamation:none Rash:none Skin Care: Aquaphor Skin Sensation: None. Focused Assessment RFID ANALYST: Alopecia: no. Headache: none. Vision changes: none. Arm/leg numbness: none. Limb coordination: none. Memory changes: none. Syncope: none. Disorientation: none. Seizures: none. Hearing changes: No. Spin- no c/o BP repeated AND remains elevated. Dr. Collazo notified. Patient instructed to follow up with PCP within 30 days. SIGNED by: Ellen Enrique RN Encounter Status:Closed by JAZIEL COLLAZO MD on 06/14/17 PROGRESS Observed: 06/13/2017 Status: COMPLETED Source: [place] 11:07 AM [facility] REPOSITORY HNO ID: [id number] Author: Gladys Perez (Sw) Service: (none) Author Type: [employer] Operator Type: Progress Notes Filed: 06/13/2017 11:08 AM Note Text: SOCIAL WORK FOLLOW UP [facility] Date of service: June 13, 2017 Delmi Phillips is being seen for a follow up social work visit. Today's visit includes: patient not present TOPICS ADDRESSED: FMLA for patient's two family members; SPIKE completed both FMLA documents for patient's family members and provided to doctor to review/sign. SPIKE then faxed to appropriate numbers per family members' request. PLAN: Continue follow up as needed F/U APPOINTMENT: JAYLENE Mead PROGRESS Observed: 06/10/2017 Status: COMPLETED Source: [place] 4:32 PM [facility] REPOSITORY HNO ID: [id number] Author: Gladys Perez (Sw) Service: (none) Author Type: [employer] Operator Type: Progress Notes Filed: 06/10/2017 4:35 PM Note Text: Social Work Problem Referral Note INFORMATION/REFERRAL : Delmi Phillips 66 year old male was referred by family to [facility] Social Work for the following reason(s): FMLA and [facility] paperwork PERSONS INTERVIEWED: family and patient INTERVENTION: Information AND Referral Service Co-ordination Affect/Mood: The patient is noted as appropriate IDENTIFIED PROBLEMS/NEEDS: FMLA and [employer] paperwork Intervention/Referral to be provided:Arrangements made for continuity of care IMPRESSION/PLAN: SPIKE met with patient and his two family members, Vince and Maria L. Both family members are requesting FMLA to assist patient with appointments and transportation. They also had paperwork for [facility] that needed to be completed. SPIKE completed this and asked them to have doctor sign this during their appointment since they are meeting with doctor this afternoon. SPIKE asked that they return this to SPIKE so she can fax to [employer]. SW will complete FMLA paperwork, give to doctor to review/sign, and fax to appropriate numbers given by patient's family members per their requests. They report no other needs at this time. SPIKE will document when forms are faxed and call family members to inform them this is completed. F/U APPOINTMENT: JAYLENE Mead PROGRESS Observed: 06/10/2017 Status: COMPLETED Source: [place] 2:32 PM [facility] REPOSITORY HNO ID: [id number] Author: Akbar Mcarthur Service: (none) Author Type: Physician Type: Progress Notes Filed: 06/10/2017 2:44 PM Note Text: Patient is self-referred for my opinion recommendations regarding management of metastatic melanoma. HPI: The patient is a 66-year-old male who has a past medical history significant for alcohol dependence who the day after Thanksgiving stumbled when coming down a set of steps. Following that he noticed progressive pain in the left upper chest. He was seen by his primary care physician and underwent a CT scan of the chest on 05/11/2017. That study demonstrated numerous bilateral areas of pleural-based and parenchymal nodularity measuring 2-7 mm in size. There was no calcification or cavitation noted. Ascending aorta was mildly ectatic and measured at 38 mm. There was mild prominence of the central pulmonary artery. In the high posterior) midline dorsal region was in the approximate T2 area there was a subcutaneous soft tissue mass measuring 34 x 25 mm. This was thought to possibly be a large sebaceous cyst. There was a comminuted fracture with approximate 40% volume loss of what appeared to be T4. This involved the left side and relatively blastic in appearance. The patient also underwent a CT scan of the abdomen and pelvis on 05/25/2017. That study demonstrated multiple hypodense nodules in the liver suggestive of diffuse metastatic disease. There were also several peripheral nodules in the spleen that were hypodense suggestive of metastatic changes well. Bladder was mildly distended. The patient was having progressive lower tissue weakness therefore admitted to [facility] 06/04/2017. MRI of the spine: Cervical spine: Focus of marrow signal abnormality at C4 compatible with bony metastasis. ?No pathologic enhancement in the cervical cord. ?Severe degenerative disc disease in the lower cervical spine with Canal stenosis is worst at C5-C6. Thoracic spine: Multiple areas of abnormal marrow signal in the MID thoracic vertebrae. ?T4 is most affected which shows a 50% pathologic compression fracture with abnormal epidural metastatic soft tissue. ?This results in moderate CORD compression at this level without evidence for cord signal abnormality. No evidence of leptomeningeal disease in the thoracic CORD. Lumbar spine: Bony metastasis at the S2 segment. ?Lumbar vertebrae show no evidence of metastatic disease. ?No evidence of leptomeningeal disease. ?Severe neural foraminal stenoses at right L4-L5 and bilateral L5-S1 due to degenerative disc and facet disease. ?No pathologic enhancement involving conus medullaris or cauda equina. Incidentally noted 1.5 cm enhancing lesion in the right lobe of the liver. ?This is suspicious for an additional metastatic focus. He was discharged but presented to emergency room at [facility] a day later with complaints of progressive weakness of the left arm. He was transferred back to [facility] where he underwent a brain MRI that disclosed at least 8 parenchymal brain metastases. His pain was under good control and his spine was thought to be stable for discharge. Plan was for outpatient radiation. Biopsy sample from the liver which was taken during his first hospitalization returned as metastatic melanoma. He was seen by radiation oncology today in the plan is for 15 fractions of whole brain radiation therapy with concurrent radiation to the thoracic spine.The patient reports that his lower germ a weakness is more marked in the left lower extremity. He also has mild left arm weakness. He denies other neurologic symptoms. He's not had any episodes of jaundice, nausea or vomiting. He has been more constipated lately. He took half of an all TRAM tablet for the car ride over her today and says he just has some pain located in the upper back and it has not been very debilitating. He has a very good appetite according to the family. He hasn't had any lower extremity swelling or edema. No rash or concerning skin lesions. PMH, medications and allergies personally reviewed by me today. Any changes documented in appropriate section. ROS: Constitutional: Denies episodes of fever and night sweats. Neuro: Denies DIAZ, vertigo, dizziness. HEENT: No recent change in voice, vision or hearing. Resp: Denies cough, wheeze and hemoptysis. Denies shortness of breath at rest. Denies MOMIN. CVS: Denies exertional chest pain, PND, orthopnea and LE edema. GI: Denies dysgeusia. Denies symptoms of stomatitis. Denies dysphagia and odynophagia. : Denies dysuria or gross hematuria. No symptoms of bladder outlet obstruction. Endo: Denies hot flashes. Denies polyuria and polydipsia. Denies heat and cold intolerance. Musculoskeletal: See above. Derm: Denies rash. Denies jaundice and diffuse pruritis. Heme: Denies unusual bleeding and unexplained bruising. Psych: Normal mood. PHYSICAL EXAM: Vitals: Blood pressure 166/77, pulse 85, temperature 36.5 ?C (97.7 ?F), height 177.8 cm (5' 10), weight 84.8 kg (187 lb). Well-appearing and in no acute distress. EYES: Sclerae are anicteric bilaterally. ENT: Oral mucosa is unremarkable. There is no sign of thrush or mucositis. NECK: Supple. LYMPHATIC: There is no palpable cervical, supraclavicular, axillary or inguinal adenopathy. RESPIRATORY: Inspiratory breath sounds are of diminished intensity in all springer. No rales, wheezes or rhonchi. CARDIOVASCULAR: Rhythm is regular. Normal intensity S1/S2. There is no gallop or murmur. ABDOMEN: The abdomen is nondistended. No organomegaly. No tenderness. Extremities: No swelling or edema. SKIN: No jaundice or rash. No petechiae. Large sebaceous cyst mid right upper back. NEUROLOGIC: In wheel chair. He was able to get on the exam table with assistance. outpatient coding specialist II-XII are grossly intact. Global weakness of both legs. MUSCULOSKELETAL: No muscle wasting. ASSESSMENT/PLAN: (C43.9) Malignant melanoma, unspecified site (HCC) (primary encounter diagnosis) (C78.7) Liver metastases (HCC) (C79.31) Brain metastases (HCC) Assessment: -KPS is 50% -Open and brandyn discussion with the patient and his family today regarding the natural history, treated course, and prognosis of metastatic melanoma in general terms. I explained that currently be ref mutational analysis is pending. I discussed how the results of that analysis would affect treatment decisions. I outlined treatment with targeted oral therapy as well as immunotherapy. I explained that if immunotherapy indicated, I would favor single agent treatment with Keytruda over Posadas immunotherapy treatment secondary to the likely toxic side effects. He is already rather debilitated. -I discussed a bowel regimen with him. Plan: -Continue dexamethasone. -Radiation treatment as planned. -Office visit week of 06/27 to finalize plans for systemic therapy. -All questions discussed and answered to the patient and his family's satisfaction. Total zuoz-uy-cifi time was >30 minutes with greater than 20 minutes spent discussing the issues outlined above and/or coordinating care. Akbar Mcarthur DO CNOVSP Observed: 06/10/2017 Status: COMPLETED Source: [facility] 1:30 PM [facility] REPOSITORY Visit (SP) Office (JOSSY) DELMI PHILLIPS ([id number]) 1950 M Date Time Provider Department 06/10/17 1:30 PM AKBAR MCARTHUR During your visit today, we recorded the following information about you: Temperature Pulse Blood pressure Weight 97.7 degrees 85/minute 166/77 84.8 kg Height 1.778 m Chela Young LPN, LPN 06/10/2017 2:18 PM Signed New patient , discuss dx: lung cancer ROB Lin DO 06/10/2017 2:44 PM Signed Patient is self-referred for my opinion recommendations regarding management of metastatic melanoma. HPI: The patient is a 66-year-old male who has a past medical history significant for alcohol dependence who the day after [place] stumbled when coming down a set of steps. Following that he noticed progressive pain in the left upper chest. He was seen by his primary care physician and underwent a CT scan of the chest on 05/11/2017. That study demonstrated numerous bilateral areas of pleural-based and parenchymal nodularity measuring 2-7 mm in size. There was no calcification or cavitation noted. Ascending aorta was mildly ectatic and measured at 38 mm. There was mild prominence of the central pulmonary artery. In the high posterior) midline dorsal region was in the approximate T2 area there was a subcutaneous soft tissue mass measuring 34 x 25 mm. This was thought to possibly be a large sebaceous cyst. There was a comminuted fracture with approximate 40% volume loss of what appeared to be T4. This involved the left side and relatively blastic in appearance. The patient also underwent a CT scan of the abdomen and pelvis on 05/25/2017. That study demonstrated multiple hypodense nodules in the liver suggestive of diffuse metastatic disease. There were also several peripheral nodules in the spleen that were hypodense suggestive of metastatic changes well. Bladder was mildly distended. The patient was having progressive lower tissue weakness therefore admitted to [facility] 06/04/2017. MRI of the spine: Cervical spine: Focus of marrow signal abnormality at C4 compatible with bony metastasis. ?No pathologic enhancement in the cervical cord. ?Severe degenerative disc disease in the lower cervical spine with Canal stenosis is worst at C5-C6. Thoracic spine: Multiple areas of abnormal marrow signal in the MID thoracic vertebrae. ?T4 is most affected which shows a 50% pathologic compression fracture with abnormal epidural metastatic soft tissue. ?This results in moderate CORD compression at this level without evidence for cord signal abnormality. No evidence of leptomeningeal disease in the thoracic CORD. Lumbar spine: Bony metastasis at the S2 segment. ?Lumbar vertebrae show no evidence of metastatic disease. ?No evidence of leptomeningeal disease. ?Severe neural foraminal stenoses at right L4-L5 and bilateral L5-S1 due to degenerative disc and facet disease. ?No pathologic enhancement involving conus medullaris or cauda equina. Incidentally noted 1.5 cm enhancing lesion in the right lobe of the liver. ?This is suspicious for an additional metastatic focus. He was discharged but presented to emergency room at [facility] a day later with complaints of progressive weakness of the left arm. He was transferred back to [facility] where he underwent a brain MRI that disclosed at least 8 parenchymal brain metastases. His pain was under good control and his spine was thought to be stable for discharge. Plan was for outpatient radiation. Biopsy sample from the liver which was taken during his first hospitalization returned as metastatic melanoma. He was seen by radiation oncology today in the plan is for 15 fractions of whole brain radiation therapy with concurrent radiation to the thoracic spine.The patient reports that his lower germ a weakness is more marked in the left lower extremity. He also has mild left arm weakness. He denies other neurologic symptoms. He's not had any episodes of jaundice, nausea or vomiting. He has been more constipated lately. He took half of an all TRAM tablet for the car ride over her today and says he just has some pain located in the upper back and it has not been very debilitating. He has a very good appetite according to the family. He hasn't had any lower extremity swelling or edema. No rash or concerning skin lesions. PMH, medications and allergies personally reviewed by me today. Any changes documented in appropriate section. ROS: Constitutional: Denies episodes of fever and night sweats. Neuro: Denies DIAZ, vertigo, dizziness. HEENT: No recent change in voice, vision or hearing. Resp: Denies cough, wheeze and hemoptysis. Denies shortness of breath at rest. Denies MOMIN. CVS: Denies exertional chest pain, PND, orthopnea and LE edema. GI: Denies dysgeusia. Denies symptoms of stomatitis. Denies dysphagia and odynophagia. : Denies dysuria or gross hematuria. No symptoms of bladder outlet obstruction. Endo: Denies hot flashes. Denies polyuria and polydipsia. Denies heat and cold intolerance. Musculoskeletal: See above. Derm: Denies rash. Denies jaundice and diffuse pruritis. Heme: Denies unusual bleeding and unexplained bruising. Psych: Normal mood. PHYSICAL EXAM: Vitals: Blood pressure 166/77, pulse 85, temperature 36.5 ?C (97.7 ?F), height 177.8 cm (5' 10ANDquot;), weight 84.8 kg (187 lb). Well-appearing and in no acute distress. EYES: Sclerae are anicteric bilaterally. ENT: Oral mucosa is unremarkable. There is no sign of thrush or mucositis. NECK: Supple. LYMPHATIC: There is no palpable cervical, supraclavicular, axillary or inguinal adenopathy. RESPIRATORY: Inspiratory breath sounds are of diminished intensity in all springer. No rales, wheezes or rhonchi. CARDIOVASCULAR: Rhythm is regular. Normal intensity S1/S2. There is no gallop or murmur. ABDOMEN: The abdomen is nondistended. No organomegaly. No tenderness. Extremities: No swelling or edema. SKIN: No jaundice or rash. No petechiae. Large sebaceous cyst mid right upper back. NEUROLOGIC: In wheel chair. He was able to get on the exam table with assistance. outpatient coding specialist II-XII are grossly intact. Global weakness of both legs. MUSCULOSKELETAL: No muscle wasting. ASSESSMENT/PLAN: (C43.9) Malignant melanoma, unspecified site (HCC) (primary encounter diagnosis) (C78.7) Liver metastases (HCC) (C79.31) Brain metastases (HCC) Assessment: -KPS is 50% -Open and brandyn discussion with the patient and his family today regarding the natural history, treated course, and prognosis of metastatic melanoma in general terms. I explained that currently be ref mutational analysis is pending. I discussed how the results of that analysis would affect treatment decisions. I outlined treatment with targeted oral therapy as well as immunotherapy. I explained that if immunotherapy indicated, I would favor single agent treatment with Keytruda over Posadas immunotherapy treatment secondary to the likely toxic side effects. He is already rather debilitated. -I discussed a bowel regimen with him. Plan: -Continue dexamethasone. -Radiation treatment as planned. -Office visit week of 06/27 to finalize plans for systemic therapy. -All questions discussed and answered to the patient and his family's satisfaction. Total [id number]-vguf time was ANDgt;30 minutes with greater than 20 minutes spent discussing the issues outlined above and/or coordinating care. Akbar Mcarthur, Referring Provider: HORACE MELTON) [[id number]] Allergies As of Date: 06/10/2017 Noted Allergy Reaction SULFA (SULFONAMIDE ANTIBIOTICS) 08/25/2011 2 - Rash TIZANIDINE 06/04/2017 8 - GI Upset Date Reviewed: 06/10/2017 Reviewed by: Akbar Mcarthur - Fully Assessed Reason for Visit: New Patient [172] Primary Visit Diagnosis:Malignant melanoma, unspecified site (HCC) [C43.9] Other Visit Diagnoses:Liver metastases (HCC) [C78.7] Brain metastases (HCC) [C79.31] Neurologic gait dysfunction [R26.9] Order(s):PARKING FOR HANDICAPPED [[id number]] Order #: [id number] LIGHTWEIGHT WHEELCHAIR [[id number]] Order #: [id number] Follow-up and Disposition History Recorded Prescriptions as of 06/10/2017 Sig: DEXAMETHASONE 4 MG TABLET Take one tab by mouth four ti* OMEPRAZOLE 20 MG CAPSULE,MALISSA* Take 1 capsule by mouth once * COMPOUNDED PRESCRIPTION Outpatient Physical therapy f* GABAPENTIN 300 MG CAPSULE Take 1 capsule by mouth daily* TRAMADOL 50 MG TABLET Take 1 tablet by mouth every * NAPROXEN 500 MG TABLET Take 1 tablet by mouth twice * HYDROCODONE 5 MG-ACETAMINOPHE* Take 1 tablet by mouth every * ACETAMINOPHEN 325 MG TABLET Take 650 mg by mouth every 6 * * ALBUTEROL SULFATE HFA 90 MCG/* Inhale 2 Puffs as instructed * Problem List As Of Date 06/10/2017 Noted Resolved Cord compression (HCC) [G95.20] INVALID FOR* More... Nicotine use disorder, F17.2 [F17.200] INVALID FOR* Brain metastases (HCC) [C79.31] INVALID FOR* Malignant melanoma (HCC) [C43.9] INVALID FOR* Visit Notes: >> Chela Young LPN TueJun 10, 2017 1:40 PM Status: Signed New patient , discuss dx: lung cancer Chela Young LPN Encounter Status:Closed by AKBAR MCARTHUR DO on 06/10/17 PROGRESS Observed: 06/10/2017 Status: COMPLETED Source: [place] 10:48 AM [facility] REPOSITORY HNO ID: [id number] Author: Jaziel Collazo Service: (none) Author Type: Physician Type: Progress Notes Filed: 06/14/2017 9:39 AM Note Text: Radiation Oncology - New Patient/Consult Note PATIENT NAME: Delmi Phillips PATIENT REQUESTING PROVIDER: Horace Melton MD DIAGNOSIS: 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 HPI: 66 year old male who presents with above diagnosis, for an opinion regarding the role of radiation therapy in the management of the patient's disease. Final recommendations will be communicated back to the requesting physician by way of the shared medical record, or letter to requesting physician via [place] mail. 66 year old man who had progressive left upper chest pain since February. CT chest on 05/11/17 showed numerous bilateral lung and pleural based small nodules and a subcutaneous soft tissue mass measuring 34 x 25 mm at the level of T2 in the posterior dorsal midline region. There was T4 vertebral body compression fracture with blastic appearance in the left side. CT abdomen/pelvis on 05/25/17 showed multiple hypodense nodules in the liver suggestive of diffuse metastatic disease and several peripheral nodules in the spleen. MRI of the spine on 06/04/17 showed, Multiple areas of abnormal marrow signal in the MID thoracic vertebrae. T4 is most affected which shows a 50% pathologic compression fracture with abnormal epidural metastatic soft tissue. ?This results in moderate CORD compression at this level without evidence for cord signal abnormality. He underwent biopsy of a liver mass on 06/06/17 and pathology showed Metastatic melanoma, involving hepatic parenchyma. BRAF was negative. He developed left arm and leg numbness/tingling and difficulties with balance this week and went to the [facility] ER. He was transferred to [facility]. MRI brain on 06/09/17 report is as follows: Image 45, right parietal vertex, 3 mm focus of susceptibility artifact with trace edema and perhaps minimal enhancement. Image 44, anterolateral margin of right superior frontal gyrus, 4 mm ring of susceptibility artifact with trace intrinsic T1 hyperintensity and fairly well pronounced enhancement. Image 43, left paracentral lobule, 5 mm ring of susceptibility artifact with subtle associated enhancement and minimal edema. Image 37, dorsal lateral margin of the right frontal operculum/motor strip, 4 mm focus of susceptibility artifact with associated edema and trace intrinsic T1 hyperintensity/enhancement. Image 36, punctate nonspecific focus susceptibility artifact in the left frontal lobe white matter without additional associated abnormal signal or enhancement is a very subtle metastatic focus. Image 36, ventral paramedian right frontal lobe, 1.6 cm area of susceptibility artifact and intrinsic T1 hyperintensity with perhaps minimal associated enhancement with some surrounding edema. Image 35, medial right frontal operculum, 8mm ring of susceptibility artifact with associated enhancement and surrounding vasogenic edema. Image 11, left inferior cerebellar peduncle, 5 mm focus of susceptibility artifact is associated edema and minimal if any enhancement. He was started on steroids with improvement in his symptoms. But he was discharged from the hospital without Decadron prescription and he noted that his symptoms got worse again. ALLERGIES Allergen Reactions - Sulfa (Sulfonamide * Rash - Tizanidine GI Upset No past medical history on file. Prior radiation therapy, collagen vascular disease, or inflammatory bowel disease: No PAST SURGICAL HISTORY Procedure Laterality Date - PAST SURGICAL HISTORY OF 2004 bilateral knee replacement FAMILY HISTORY Problem Relation Age of Onset - Cancer Father esophagus - Cancer Brother bladder, lung Social History Marital status: Spouse name: Years of education: Number of children: Social History Main Topics Smoking status: Never Smoker Smokeless status: Current User Types: Snuff Alcohol use: Yes 45.0 oz/week 30 Cans of Beer (12oz) per week Drug use: No COMPLETE REVIEW OF SYSTEMS: GENERAL: Negative for weight loss, fevers, chills, or night sweats. HEENT: Negative for sudden vision or hearing changes. NECK: Negative for masses in the neck. RESPIRATORY: Negative for cough or shortness of breath. CARDIAC: Negative for chest pain, palpitations, murmurs, or syncopal episodes. GI: Negative for nausea, vomiting, diarrhea, constipation, blood per rectum, or melena. : Negative for dysuria, hematuria, urgency, frequency or incontinence. MUSCULOSKELETAL: see HPI. NEURO: see HPI HEMATOLOGIC: Negative for bleeding or easy bruising. SKIN: Negative for rashes or other skin changes. PHYSICAL EXAM: VS: BP 165/82 Pulse 91 Temp 36.9 ?C (98.4 ?F) (Temporal Artery) Resp 20 Wt 83 kg (183 lb) SpO2 98% BMI 26.26 kg/m2 KPS: 70 General Appearance: Alert and oriented. No acute distress. HEENT: NCAT. Sclera anicteric. PERRL. EOMI. Neck: Normal ROM. Chest: No respiratory distress. Lungs clear to auscultation bilaterally. Heart: Regular rate and rhythm. Abdomen: Soft. Nontender. Nondistended. Musculoskeletal: No edema. Normal ROM in extremities. Neuro: Alert and oriented x 3. Speech intact. Strength intact and symmetric. CN II-XII intact. Gait unsteady. Skin: No rashes noted Lymphatics: No palpable cervical or supraclavicular adenopathy. RADIOLOGY/LABORATORY DATA: see HPI ASSESSMENT AND PLAN: 66 year old man with metastatic melanoma with multiple brain metastases and bone metastasis with spinal cord compression at T4. He has about eight brain metastases. He has diffuse systemic disease involving the lung, the liver, the bone and the spleen. He has cord compression at T4. His melanoma is BRAF negative. I recommend palliative Whole brain radiation treatment and also palliative radiation treatment to T4 area where he has spinal cord compression. I will start him back on steroids. I explained the rationale, benefits, alternative management options and potential complications of radiation treatment to the patient and he understands and agrees to proceed. It was explained and understood that other personnel such as radiation therapists, electrical intern, and physicists will participate in planning and delivery of radiation treatment. Permanent tattoo stevenson will be placed to aid with positioning for daily treatment and the patient consented. Patient will have a simulation procedure today. Thank you very much for allowing us to participate in his care. Signed by: Jaziel Collazo MD cc: Jerry Aguirre, KATHE [address] [place] [address] Horace Melton MD [id number] [facility] [id number] Akbar Mcarthur DO CNOV Observed: 06/10/2017 Status: COMPLETED Source: [place] 10:30 AM [facility] REPOSITORY Office Visit (RADTWS) DELMI DEL RIO ([id number]) 1950 M Date Time Provider Department 06/10/17 10:30 AM JAZIEL COLLAZO During your visit today, we recorded the following information about you: Temperature Pulse Respiration Blood pressure 98.4 degrees 91/minute 20/minute 165/82 Weight 83 kg Jaziel Collazo MD 06/14/2017 9:39 AM Signed Radiation Oncology - New Patient/Consult Note PATIENT NAME: Delmi Phillips PATIENT REQUESTING PROVIDER: Horace Melton MD DIAGNOSIS: 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 HPI: 66 year old male who presents with above diagnosis, for an opinion regarding the role of radiation therapy in the management of the patient's disease. Final recommendations will be communicated back to the requesting physician by way of the shared medical record, or letter to requesting physician via [place] mail. 66 year old man who had progressive left upper chest pain since February. CT chest on 05/11/17 showed numerous bilateral lung and pleural based small nodules and a subcutaneous soft tissue mass measuring 34 x 25 mm at the level of T2 in the posterior dorsal midline region. There was T4 vertebral body compression fracture with blastic appearance in the left side. CT abdomen/pelvis on 05/25/17 showed multiple hypodense nodules in the liver suggestive of diffuse metastatic disease and several peripheral nodules in the spleen. MRI of the spine on 06/04/17 showed, ANDquot;Multiple areas of abnormal marrow signal in the MID thoracic vertebrae. T4 is most affected which shows a 50% pathologic compression fracture with abnormal epidural metastatic soft tissue. ?This results in moderate CORD compression at this level without evidence for cord signal abnormality.ANDquot; He underwent biopsy of a liver mass on 06/06/17 and pathology showed Metastatic melanoma, involving hepatic parenchyma. BRAF was negative. He developed left arm and leg numbness/tingling and difficulties with balance this week and went to the [facility] ER. He was transferred to [facility]. MRI brain on 06/09/17 report is as follows: Image 45, right parietal vertex, 3 mm focus of susceptibility artifact with trace edema and perhaps minimal enhancement. Image 44, anterolateral margin of right superior frontal gyrus, 4 mm ring of susceptibility artifact with trace intrinsic T1 hyperintensity and fairly well pronounced enhancement. Image 43, left paracentral lobule, 5 mm ring of susceptibility artifact with subtle associated enhancement and minimal edema. Image 37, dorsal lateral margin of the right frontal operculum/motor strip, 4 mm focus of susceptibility artifact with associated edema and trace intrinsic T1 hyperintensity/enhancement. Image 36, punctate nonspecific focus susceptibility artifact in the left frontal lobe white matter without additional associated abnormal signal or enhancement is a very subtle metastatic focus. Image 36, ventral paramedian right frontal lobe, 1.6 cm area of susceptibility artifact and intrinsic T1 hyperintensity with perhaps minimal associated enhancement with some surrounding edema. Image 35, medial right frontal operculum, 8mm ring of susceptibility artifact with associated enhancement and surrounding vasogenic edema. Image 11, left inferior cerebellar peduncle, 5 mm focus of susceptibility artifact is associated edema and minimal if any enhancement. He was started on steroids with improvement in his symptoms. But he was discharged from the hospital without Decadron prescription and he noted that his symptoms got worse again. ALLERGIES Allergen Reactions - Sulfa (Sulfonamide * Rash - Tizanidine GI Upset No past medical history on file. Prior radiation therapy, collagen vascular disease, or inflammatory bowel disease: No PAST SURGICAL HISTORY Procedure Laterality Date - PAST SURGICAL HISTORY OF 2004 bilateral knee replacement FAMILY HISTORY Problem Relation Age of Onset - Cancer Father esophagus - Cancer Brother bladder, lung Social History Marital status: Spouse name: Years of education: Number of children: Social History Main Topics Smoking status: Never Smoker Smokeless status: Current User Types: Snuff Alcohol use: Yes 45.0 oz/week 30 Cans of Beer (12oz) per week Drug use: No COMPLETE REVIEW OF SYSTEMS: GENERAL: Negative for weight loss, fevers, chills, or night sweats. HEENT: Negative for sudden vision or hearing changes. NECK: Negative for masses in the neck. RESPIRATORY: Negative for cough or shortness of breath. CARDIAC: Negative for chest pain, palpitations, murmurs, or syncopal episodes. GI: Negative for nausea, vomiting, diarrhea, constipation, blood per rectum, or melena. : Negative for dysuria, hematuria, urgency, frequency or incontinence. MUSCULOSKELETAL: see HPI. NEURO: see HPI HEMATOLOGIC: Negative for bleeding or easy bruising. SKIN: Negative for rashes or other skin changes. PHYSICAL EXAM: VS: BP 165/82 Pulse 91 Temp 36.9 ?C (98.4 ?F) (Temporal Artery) Resp 20 Wt 83 kg (183 lb) SpO2 98% BMI 26.26 kg/m2 KPS: 70 General Appearance: Alert and oriented. No acute distress. HEENT: NCAT. Sclera anicteric. PERRL. EOMI. Neck: Normal ROM. Chest: No respiratory distress. Lungs clear to auscultation bilaterally. Heart: Regular rate and rhythm. Abdomen: Soft. Nontender. Nondistended. Musculoskeletal: No edema. Normal ROM in extremities. Neuro: Alert and oriented x 3. Speech intact. Strength intact and symmetric. CN II-XII intact. Gait unsteady. Skin: No rashes noted Lymphatics: No palpable cervical or supraclavicular adenopathy. RADIOLOGY/LABORATORY DATA: see HPI ASSESSMENT AND PLAN: 66 year old man with metastatic melanoma with multiple brain metastases and bone metastasis with spinal cord compression at T4. He has about eight brain metastases. He has diffuse systemic disease involving the lung, the liver, the bone and the spleen. He has cord compression at T4. His melanoma is BRAF negative. I recommend palliative Whole brain radiation treatment and also palliative radiation treatment to T4 area where he has spinal cord compression. I will start him back on steroids. I explained the rationale, benefits, alternative management options and potential complications of radiation treatment to the patient and he understands and agrees to proceed. It was explained and understood that other personnel such as radiation therapists, electrical intern, and physicists will participate in planning and delivery of radiation treatment. Permanent tattoo stevenson will be placed to aid with positioning for daily treatment and the patient consented. Patient will have a simulation procedure today. Thank you very much for allowing us to participate in his care. Signed by: Jaziel Collazo MD cc: Jerry Aguirre, [employer] [address] [place] [address] Horace Melton MD [address] [facility] [id number] DO Ellen Cook RN, RN 06/10/2017 10:57 AM Signed Radiation Therapy - Nursing Note (Consult) PATIENT NAME: Delmi Phillips PATIENT June 10, 2017 [facility] FACILITY/LOCATION: [facility] Chief Complaint: consult Reason for visit: Consult. Referring physician: Internal provider Dr. Melton Subjective Data: c/o some numbness/tingling to left arm ANDamp; left leg Additional Data Do you want to see a Manager Distribution Center? No Are you interested in information about fertility? No Sexual Activity: Male: N/A Stress Scale: On a scale of 0 to 10, what number best describes how much distress you have experienced in the past week?(0 being no distress and 10 being extreme distress) 1 Social work notified: no Radiation therapy teaching initiated. [facility] external beam radiation therapy handout given. Department phone numbers given ANDamp; patient encouraged to verbalize questions. BP repeated ANDamp; remains elevated. Dr. Collazo notified. Patient instructed to follow up with PCP within 30 days. SIGNED by: Ellen Enrique RN Referring Provider: HORACE MELTON) [[id number]] Allergies As of Date: 06/10/2017 Noted Allergy Reaction SULFA (SULFONAMIDE ANTIBIOTICS) 08/25/2011 2 - Rash TIZANIDINE 06/04/2017 8 - GI Upset Date Reviewed: 06/10/2017 Reviewed by: Akbar Mcarthur - Fully Assessed Reason for Visit: Consult [502] Simulation Request Form [4065] Reason For Visit History Recorded Primary Visit Diagnosis:Brain metastases (HCC) [C79.31] Other Visit Diagnosis:Cord compression (HCC) [G95.20] Order(s):dexamethasone (DECADRON) 4 mg tabletTake one tab by mouth four times dailyDisp: 60 tabletRfl: 1 omeprazole (PRILOSEC) 20 mg capsuleTake 1 capsule by mouth once daily.Disp: 30 capsuleRfl: 1 RADIATION TREATMENT PER RADIATION ONCOLOGIST PLAN [[id number]] Order #: [id number]: 1 CT SIM PLANNING RADIATION ONCOLOGY [[id number]] Order #: [id number] Prescriptions as of 06/10/2017 Sig: GABAPENTIN 300 MG CAPSULE Take 1 capsule by mouth daily* TRAMADOL 50 MG TABLET Take 1 tablet by mouth every * NAPROXEN 500 MG TABLET Take 1 tablet by mouth twice * HYDROCODONE 5 MG-ACETAMINOPHE* Take 1 tablet by mouth every * ACETAMINOPHEN 325 MG TABLET Take 650 mg by mouth every 6 * * ALBUTEROL SULFATE HFA 90 MCG/* Inhale 2 Puffs as instructed * DEXAMETHASONE 4 MG TABLET Take one tab by mouth four ti* OMEPRAZOLE 20 MG CAPSULE,MALISSA* Take 1 capsule by mouth once * COMPOUNDED PRESCRIPTION Outpatient Physical therapy f* Problem List As Of Date 06/10/2017 Noted Resolved Cord compression (HCC) [G95.20] INVALID FOR* More... Nicotine use disorder, F17.2 [F17.200] INVALID FOR* Brain metastases (HCC) [C79.31] INVALID FOR* Malignant melanoma (HCC) [C43.9] INVALID FOR* Visit Notes: >> Ellen (Rn) TANYA Enrique TueJun 10, 2017 10:53 AM Status: Signed Radiation Therapy - Nursing Note (Consult) PATIENT NAME: Delmi Phillips PATIENT June 10, 2017 [facility] FACILITY/LOCATION: [facility] Chief Complaint: consult Reason for visit: Consult. Referring physician: Internal provider Dr. Melton Subjective Data: c/o some numbness/tingling to left arm AND left leg Additional Data Do you want to see a Manager Distribution Center? No Are you interested in information about fertility? No Sexual Activity: Male: N/A Stress Scale: On a scale of 0 to 10, what number best describes how much distress you have experienced in the past week?(0 being no distress and 10 being extreme distress) 1 Social work notified: no Radiation therapy teaching initiated. [facility] external beam radiation therapy handout given. Department phone numbers given AND patient encouraged to verbalize questions. BP repeated AND remains elevated. Dr. Collzao notified. Patient instructed to follow up with PCP within 30 days. SIGNED by: Ellen Enrique RN Prescriptions ordered this encounter Disp Refills Start End DEXAMETHASONE 4 MG TABLET 60 t* 1 06/10/2017 Sig: Take one tab by mouth four times daily OMEPRAZOLE 20 MG CAPSULE,DELAYED REL* 30 c* 1 06/10/2017 Route: ORAL Sig: Take 1 capsule by mouth once daily. Encounter Status:Closed by JAZIEL COLLAZO MD on 06/14/17 CNCNPATED Observed: 06/10/2017 Status: COMPLETED Source: [facility] 12:00 AM [facility] REPOSITORY Education (KYLERWS) DELMI PHILLIPS ([id number]) 1950 M Date Time Provider Department 06/10/17 JAZIEL COLLAZO Reason for Visit: Patient Education [91] Visit Notes: >> Ellen (Tanya) TANYA Enrique TueJun 10, 2017 11:56 AM Status: Signed Radiation Therapy - Patient Education Note PATIENT NAME: Delmi Phillips PATIENT June 10, 2017 [facility] FACILITY/LOCATION: [facility] READINESS TO LEARN Cognitive Ability: Alert and oriented Motivation to learn: Eager Interested Family Support: High - Very involved in pt care Instruction provide to: Patient, Family member and Spouse Patient learns best by: Individual Instruction Written Instruction - Hand-outs Verbal Instruction Factors effecting learning: None Physical limitations effecting learning: None LEARNING RESPONSE Diagnosis: Pt simulated today for radiation therapy to spine and brain. Education Topic/Teaching Points: Radiation therapy, Side effects and OTV: Method of instruction: Teach Back skin care Individual instruction Written instruction - handouts Verbal instruction Patient /Family response: Patient and family verbalized understanding of radiation treatments, side effects, OTV, and transportation. Follow-up plan: Patient instructed to call with any further issues Reinforce - Repeat previous content Contact information given. Supplemental material: Informational handouts on Department phone list, Esophagitis/Mucositis, Fatigue and XRT sheet, Wendy instructions, Aquaphor packet, Decadron sheet. Referral (recommendation): None, Pt denied need for social work, van service, and simplex printer installer. Signed by: Ellen Enrique RN During your visit today, we recorded the following information about you: Allergies As of Date: 06/10/2017 Noted Allergy Reaction SULFA (SULFONAMIDE ANTIBIOTICS) 08/25/2011 2 - Rash TIZANIDINE 06/04/2017 8 - GI Upset Date Reviewed: 06/10/2017 Reviewed by: Ellen (Rn) TANYA Enrique - Fully Assessed Prescriptions as of 06/10/2017 Sig: DEXAMETHASONE 4 MG TABLET Take one tab by mouth four ti* OMEPRAZOLE 20 MG CAPSULE,MALISSA* Take 1 capsule by mouth once * COMPOUNDED PRESCRIPTION Outpatient Physical therapy f* GABAPENTIN 300 MG CAPSULE Take 1 capsule by mouth daily* TRAMADOL 50 MG TABLET Take 1 tablet by mouth every * NAPROXEN 500 MG TABLET Take 1 tablet by mouth twice * HYDROCODONE 5 MG-ACETAMINOPHE* Take 1 tablet by mouth every * ACETAMINOPHEN 325 MG TABLET Take 650 mg by mouth every 6 * * ALBUTEROL SULFATE HFA 90 MCG/* Inhale 2 Puffs as instructed * Encounter Status:Closed by LELEN ENRIQUE on 06/10/[address] [facility] [address] NON-RADIOLOGY Observed: 06/10/2017 Status: F Source: [facility] 12:00 AM [facility] REPOSITORY [facility] - CT Images - Obtained Outside of Imaging [place] [id number] Observed: 06/10/2017 Status: COMPLETED Source: [place] 12:00 AM [facility] REPOSITORY Social Work (HEMAWS) DOVE,DELMI M ([id number]) 1950 M Date Time Provider Department 06/10/17 GLADYS PEREZ (SW) During your visit today, we recorded the following information about you: JAYLENE Zavala 06/10/2017 4:35 PM Signed Social Work Problem Referral Note INFORMATION/REFERRAL : Delmi Phillips 66 year old male was referred by family to [facility] Social Work for the following reason(s): FMLA and [facility] paperwork PERSONS INTERVIEWED: family and patient INTERVENTION: Information ANDamp; Referral Service Co-ordination Affect/Mood: The patient is noted as appropriate IDENTIFIED PROBLEMS/NEEDS: FMLA and [employer] paperwork Intervention/Referral to be provided:Arrangements made for continuity of care IMPRESSION/PLAN: SPIKE met with patient and his two family members, Vince and Maria L. Both family members are requesting FMLA to assist patient with appointments and transportation. They also had paperwork for [facility] that needed to be completed. SPIKE completed this and asked them to have doctor sign this during their appointment since they are meeting with doctor this afternoon. SPIKE asked that they return this to SPIKE so she can fax to [employer]. SPIKE will complete FMLA paperwork, give to doctor to review/sign, and fax to appropriate numbers given by patient's family members per their requests. They report no other needs at this time. SPIKE will document when forms are faxed and call family members to inform them this is completed. F/U APPOINTMENT: JAYLENE Mead LISW 06/13/2017 11:08 AM Signed SOCIAL WORK FOLLOW UP [facility] Date of service: June 13, 2017 Delmi Phillips is being seen for a follow up social work visit. Today's visit includes: patient not present TOPICS ADDRESSED: FMLA for patient's two family members; SPIKE completed both FMLA documents for patient's family members and provided to doctor to review/sign. SPIKE then faxed to appropriate numbers per family members' request. PLAN: Continue follow up as needed F/U APPOINTMENT: JAYLENE Mead Allergies As of Date: 06/10/2017 Noted Allergy Reaction SULFA (SULFONAMIDE ANTIBIOTICS) 08/25/2011 2 - Rash TIZANIDINE 06/04/2017 8 - GI Upset Date Reviewed: 06/10/2017 Reviewed by: Akbar Mcarthur - Fully Assessed Reason for Visit: Social Work Services [507] Cmt: FMLA and [employer] form Prescriptions as of 06/10/2017 Sig: DEXAMETHASONE 4 MG TABLET Take one tab by mouth four ti* OMEPRAZOLE 20 MG CAPSULE,MALISSA* Take 1 capsule by mouth once * COMPOUNDED PRESCRIPTION Outpatient Physical therapy f* GABAPENTIN 300 MG CAPSULE Take 1 capsule by mouth daily* TRAMADOL 50 MG TABLET Take 1 tablet by mouth every * NAPROXEN 500 MG TABLET Take 1 tablet by mouth twice * HYDROCODONE 5 MG-ACETAMINOPHE* Take 1 tablet by mouth every * ACETAMINOPHEN 325 MG TABLET Take 650 mg by mouth every 6 * * ALBUTEROL SULFATE HFA 90 MCG/* Inhale 2 Puffs as instructed * Problem List As Of Date 06/10/2017 Noted Resolved Cord compression (HCC) [G95.20] INVALID FOR* More... Nicotine use disorder, F17.2 [F17.200] INVALID FOR* Brain metastases (HCC) [C79.31] INVALID FOR* Malignant melanoma (HCC) [C43.9] INVALID FOR* Encounter Status:Closed by GLADYS PEREZ on 06/10/17 PROGRESS Observed: 06/10/2017 Status: COMPLETED Source: [place] 12:00 AM [facility] REPOSITORY HNO ID: [id number] Author: Jaziel Collazo Service: (none) Author Type: Physician Type: Progress Notes Filed: 06/22/2017 3:17 PM Note Text: DELMI PHILLIPS [id number] 06/10/2017 [facility] Department of Radiation Oncology [facility] RADIATION ONCOLOGY SIMULATION NOTE DATE OF SIMULATION: 06/10/2017 MACHINE: Siemens Definition CT Simulator Diagnosis: Metastatic melanoma with multiple brain metastases and bone metastasis at T4 with cord compression. AREA:brain and t spine PATIENT POSITION: Supine. CONTRAST: None PROTOCOL: None BLOCKING: Custom blocking to be determined at treatment planning. FIXATION DEVICE: In order to achieve accurate and reproducible treatments, the patient is to be immobilized with custom 3 point mask PROCEDURE: A time-out was conducted and recorded by the therapist. Patient was simulated on the CT scanner for external beam radiation therapy. Treatment site was marked by the simulation therapist. ASSESSMENT/PLAN: Patient tolerated simulation procedure well. Treatments will be initiated after treatment planning. The patient is scheduled for a verification simulation on the treatment machine to ensure proper set-up and field arrangement is correct prior to the first treatment of primary and boost springer if applicable. Electronically Signed Jaziel Collazo M.D./hina 06/10/20172:50 PM PROGRESS Observed: 06/10/2017 Status: COMPLETED Source: [place] 12:00 AM [facility] REPOSITORY HNO ID: [id number] Author: Jaziel Collazo Service: (none) Author Type: Physician Type: Progress Notes Filed: 06/22/2017 3:17 PM Note Text: DELMI PHILLIPS [id number] 06/10/2017 [facility] Department of Radiation Oncology Treatment Planning Note Non IMRT/VMAT - Palliative For reasons stated in the consult note, Delmi Phillips is a candidate for radiation therapy. Based on review and interpretation of the relevant diagnostic studies together with the exam findings, Delmi Phillips was simulated on 06/10/2017 at which time the target volume and/or requisite springer were delineated, as indicated in the simulation note, to be treated according to the prescription. After reviewing the treatment plan with dosimetry, the plan was approved to deliver the prescribed course of radiation to the target area to allow for the best isodose distribution, treating to the 49QKP49% isodose line [id number] MV and 4 springer. Custom MLC asym jaws were the treatment device(s) used to shape/modify the beams. Special consideration to these and other structures was given in light of the potential for increased toxicities of treatment of multiple sites concurrently. A completed summary of this plan dated 06/10/17 incorporated herein by reference includes dose, ports, beam arrangements, energy, blocking, isodose distribution and DVH. Electronically Signed Jaziel Collazo M.D. 06/10/20172:51 PM THERAPY NT Observed: 06/09/2017 Status: COMPLETED Source: [place] 4:24 PM [facility] REPOSITORY HNO ID: [id number] Author: Era Ramos Service: Physical Therapy Author Type: Physical Therapist Type: Therapy (PT/OT/Speech/Resp) Filed: 06/09/2017 5:05 PM Note Text: Physical Therapy Evaluation SERVICE DATE: 06/09/2017 SERVICE TIME: 1600 to 1624 ROOM: [place] [address] Recommended Discharge Disposition: Outpatient Physical Therapy Anticipated Discharge Needs: Physical Assist at Home Recommended Discharge Equipment: Patient to Obtain PT Recommendations to Nursing: Ambulate with device using gait belt;With assist of 1 person;OOB for Meals using gait belt Device: Wheeled Walker PT 6 Clicks Score: 22 Precautions/Activity Restrictions: Fall Risk ASSESSMENT : Tolerated Full Session Patient presents with impaired Strength/Tone, Balance, Coordination, Functional Mobility and Activity Tolerance impacting the ability to function without assistance from caregivers. Patient requires SUP-Bienvenido with all functional mobility including Minimal: Tactile, Verbal, Visual, cues for safety. Pt also requires monitoring of activity and instructions/ education regarding safe activity dosing. Pt requires skilled therapy to address current functional limitations and impairments and maximize activity tolerance to be within safe limits. Anticipate that patient will be safe to return home from a PT perspective with assist at home and OPPT. Physical Therapy Problem List: Education Deficit;Safety Deficits;Decreased Activity Tolerance;Decreased Strength;Functional Mobility Impairment;Balance Impaired Patient /Caregiver Goals: Go Home Goals for Plan of Care: Transfer sit to/from stand with: Modified Independent Ambulate with: Modified Independent Distance: 150+ Device: (LRAD) Progress Toward Goals: Progressing as expected Rehab Potential: Excellent PLAN: Treatment Frequency (times per week): Discontinue Therapy Services Reasons Therapy Services Discontinued: Discharged from facility Treatment Interventions: Education;Self Care / Home Management;Energy Conservation Training;Joint Mobility;Strengthening;Functional Mobility Training;Balance Training;Neuromuscular Re-education Plan of Care developed with: Patient;Family TREATMENT INTERVENTIONS: Therapy Diagnosis: Reduced mobility-other;Abnormalities of gait and mobility-other;Ataxic gait Interventions Provided: Evaluation;Gait Training (87174) $ Evaluation-Low (62851) Billed Units: 1 unit Gait Training (02595) Treatment Minutes: 8 1 unit Skilled Intervention(s): Instruction in sit to stand technique with proper hand placement and body positioning at edge of bed/chair, Instruction in stand to sit technique with LE's touching chair/bed and reaching back for surface, Instruction in sequencing, gait pattern, Instruction in correction of gait deviations, Instruction in stair negotiation, Instruction in use of equipment, cues for sequence and pattern, posture, safety, pacing. Education in activity tolerance, use of pursed lip breathing and means of self monitoring tolerance to activity and exercise. Educated in safety precautions and modifications during ambulation. Education of PT role/responsibility, d/c planning, poc, benefits of mobility, importance of OOB activity with nursing assist, use of call light, safety, activity pacing, precautions. ? Total Timed Code Treatment Minutes: 8 Total Treatment Time (minutes): 24 FUNCTIONAL G CODE: PT 6 Clicks Score: 22 (06/09/17 1600) Mobility: Walking and Moving Around Current Status (G8978): CJ (06/09/17 1600) Mobility: Walking and Moving Around Goal Status (G8979): CI (06/09/17 1600) Based on clinical assessment and the score on the 6 Clicks Functional Assessment Tool, the G code and corresponding severity modifiers are documented above. SUBJECTIVE: Current Hospital Course: Chart reviewed; 66y M with newly diagnosed metastatic cancer (primary unknown, s/p liver biopsy on 06/06, pathology pending) with T4 lesion causing left sided spinal cord compression from 06/03 MRI, who presented to [facility] ED for 1 day of L-hemibody paresthesias and transient L foot drop Patient Report: Pt agreeable to PT. Home Environment Patient Lives With: Significant Other;Family Assistance Available: 24 Hour Entry To Home: Stairs;With Rail Number Of Stairs Into Home: 3 Number Of Stairs To Bed/Bath: 0 Equipment Owned: Cane;Commode-Bedside;Wheeled Walker;Shower Chair (equipment available from family/friends) Prior Functional Level: Within Functional Limits OBJECTIVE: CURRENT FUNCTIONAL STATUS: Current Functional Mobility Assist Level Additional Information Rolling Independent Supine to Sit Independent Sit to Supine Independent Scooting Independent Sit to Stand Supervision Stand to Sit Supervision Gait Stand By Assistance (Min A without AD) Gait Device: Wheeled Walker;Hand Held Assist Gait Distance (feet): 100/20 General Gait Deviations: Amna decreased;Lateral sway increased;Narrow Base of Support;Loss of Balance (Pt able to correct LOB; B knee buckling; occ scissoring) Please see discipline specific clinical documentation flowsheet for complete details for this therapy evaluation/treatment. SIGNATURE: Era Ramos PT PATIENT NAME: Delmi Phillips DATE: June 09, 2017 TIME: 5:03 PM PAGER/CONTACT #: [id number] CNDS Observed: 06/09/2017 Status: COMPLETED Source: [place] 3:13 PM [facility] [place] REPOSITORY HNO ID: [id number] Author: Horace Melton Service: General Internal Medicine Author Type: Physician Type: Discharge Summaries Filed: 06/10/2017 8:30 AM Note Text: DISCHARGE SUMMARY PATIENT NAME: Delmi Phillips ADMISSION DATE: 06/08/2017 DISCHARGE DATE: 06/09/2017 ATTENDING PHYSICIAN: Horace Melton REASON FOR HOSPITALIZATION: Weakness DIAGNOSIS: Active Problems: Cord compression (HCC) Resolved Problems: * No resolved hospital problems. * OPERATIONS DURING HOSPITALIZATION: None PROCEDURES DURING HOSPITALIZATION: MRI Brain, Cervical, Thoracic Spine 06/09/2017 Comparison: MRI total spine dated 06/03/[address] of the chest, abdomen, and pelvis with chest component dated 05/11/2017 and the remainder dated 05/25/2017 Result: Brain: Metastatic disease with minimal to predominant hemorrhagic components as evidenced by susceptibility artifact, variable associated intrinsic T1 hyperintensity, variable edema on FLAIR, and variable enhancement best seen on susceptibility weighted imaging series 13 as follows: Image 45, right parietal vertex, 3 mm focus of susceptibility artifact with trace edema and perhaps minimal enhancement. Image 44, anterolateral margin of right superior frontal gyrus, 4 mm ring of susceptibility artifact with trace intrinsic T1 hyperintensity and fairly well pronounced enhancement. Image 43, left paracentral lobule, 5 mm ring of susceptibility artifact with subtle associated enhancement and minimal edema. Image 37, dorsal lateral margin of the right frontal operculum/motor strip, 4 mm focus of susceptibility artifact with associated edema and trace intrinsic T1 hyperintensity/enhancement. Image 36, punctate nonspecific focus susceptibility artifact in the left frontal lobe white matter without additional associated abnormal signal or enhancement is a very subtle metastatic focus. Image 36, ventral paramedian right frontal lobe, 1.6 cm area of susceptibility artifact and intrinsic T1 hyperintensity with perhaps minimal associated enhancement with some surrounding edema. Image 35, medial right frontal operculum, 8mm ring of susceptibility artifact with associated enhancement and surrounding vasogenic edema. Image 11, left inferior cerebellar peduncle, 5 mm focus of susceptibility artifact is associated edema and minimal if any enhancement. Trace restricted diffusion associated with the ventral paramedian right frontal metastasis not unexpected given the predominant blood products. Negative for significant space occupying hematoma, significant mass effect, and extra-axial collection. The major intracranial vessels are grossly patent as evidenced by normal appearing flow voids although rarely thrombosis/thromboembolus may mimic normal flow void. Extensive right mastoid effusion with involvement of an aerated petrous apex. ?Unremarkable orbits. ?Inferior left maxillary sinus polypoid postictal thickening. Thoracic spine: Counting reference: The same vertebral body count is established whether utilizing the craniocervical junction or last fully formed disc labeled as L5/S1. Again noted is T1 hypointense, enhancing osseous metastatic disease scattered in the thoracic spine with greatest involvement of the T4 vertebral body with extension into the pedicles stable pathologic compression deformity with approximately 50% maximal height loss ventrally. Again noted is ventral and lateral epidural extension of tumor at the T4 level with moderate to severe canal compromise with some indentation of the spinal cord without evidence of abnormal cord signal with neural foraminal encroachment as well mostly the left T4/5 neural foramen. ?The degree of canal and neural foraminal compromise are unchanged although there are areas of nonenhancement suggestive of necrosis now appreciated most conspicuously at the junction of the body and left pedicle. Most conspicuous additional metastases are in the T7 and T5 vertebral bodies with approximately one half and one third involvement respectively. No new disease. ?No abnormal enhancement within the thecal sac. Numerous hepatic lesions and a markedly dilated urinary bladder again appreciated. Impression: 1. ?Numerous supratentorial and solitary infratentorial hemorrhagic metastases as detailed without significant mass effect. 2. ?No significant change in thoracic metastatic disease with epidural extension of tumor at the T4 level resulting in significant canal compromise with some compression of the spinal cord but without evidence of underlying cord changes. Liver Biopsy Pathology result 06/06/2017 Liver mass, biopsy - Metastatic melanoma, involving hepatic parenchyma. - See comment. MC/SHANNA/rw 06/07/2017 COMMENT Biopsy consists of a fragment of hepatic parenchyma that has largely been replaced by spindle cell neoplasm with focal cells demonstrating large prominent nucleoli. Panel of immunohistochemical stains were performed on block A1 and the neoplastic cells were positive for SOX-10, HMB-45, and MITF but were negative for CK DARIANA, STAT6, and desmin. S100 demonstrates patchy positivity. The overall histologic and immunohistochemical profile is consistent with metastatic melanoma. Laboratory Developed Test (LDT) Disclaimer: Positive and negative controls stain appropriately. Performance characteristics of immunohistochemical, immunofluorescent and chromogenic in-situ hybridization tests have been determined by [facility] [place] ([facility]) in a manner consistent with CLIA requirements. One or more of these tests have not been cleared or approved by the FDA. [facility] is regulated under CLIA as qualified to perform high-complexity testing. These tests are used for clinical purposes. They should not be regarded as investigational or for research. HOSPITAL COURSE: This is a 66 yoM with no significant past medical history who was recently admitted for back pain 06/03 to 06/06 and found to have multiple bony mets in cervical, thoracic, and lumbar regions with pathologic fracture and moderate cord compression at the level of T4 on MRI 06/04. Patient was discharged to follow with an Oncologist, Dr. Mcarthur, in [place]. ? Patient states that since discharge two days ago, he has had new symptoms of numbness and tingling of his left upper and lower extremity. The symptoms mostly began earlier today. Patient also complains of feeling of weakness earlier in the day, noting that he had problems walking because he had left foot drop. He no longer complains of weakness but he is still feeling numbness and tingling on his left side. He denies any loss of bowel or bladder function. He states that he has had problems with urine stream for about 5-6 days but has had no incontinence episodes. Because pf these symptoms, he presented to [place] ED earlier in the day and was transferred to [facility]. ? Of note, there has been no characterized primary cancer. MRI during his last admission showed an incidentally found 1.5 cm lesion in the right lobe of liver, which was biopsied; surgical pathology is still pending. He also has an OSH CT scan that is positive for pulmonary nodules. On exam he had no focal neurologic deficits and did not have any decreased rectal tone. Brain MRI was ordered which was significant for multiple hemorrhagic brain lesions as reported above. Neurosurgery recommended against acute surgical intervention during this hospitalization. Recommended follow- up with Radiation Oncology and Medical Oncology. Liver Biopsy results came back positive for metastatic melanoma. BRAF mutation status pending at time of discharge. Patient was able to ambulate without issue. He was assessed by physical therapy and approved for discharge to home with outpatient physical therapy. Patient was discharged on 06/09/2017 in stable condition with follow-up tomorrow at [facility] with Radiation Oncology and Medical Oncology. LABS AND PROCEDURES PENDING AT DISCHARGE: BRAF mutation status of melanoma liver lesions CONSULTING TEAMS DURING HOSPITALIZATION: Neurosurgery PATIENT CONDITION AT DISCHARGE: Stable DISCHARGE DISPOSITION: Home/Self Care INFORMATION PROVIDED TO PATIENT: (To pull info documented from the DC Instruct Orderset Complete O/S First): Seizure precautions Follow-up with Dr. Mcarthur and Dr. Collazo DISCHARGE MEDICATION: Current Discharge Medication List START taking these medications COMPOUNDED PRESCRIPTION Outpatient Physical therapy for weakness due to his metastatic malignancy. Qty: 1 Each Refills: 0 Comments: As recommended by Physical Therapy Associated Diagnoses:Metastatic melanoma (HCC) gabapentin (NEURONTIN) 300 mg Take 300 mg by mouth daily at bedtime. Qty: 30 capsule Refills: 0 CONTINUE these medications which have NOT CHANGED traMADol (ULTRAM) 50 mg Take 50 mg by mouth every 6 hours as needed. Qty: 56 tablet Refills: 0 Associated Diagnoses:Cancer associated pain naproxen (NAPROSYN) 500 mg Take 500 mg by mouth twice daily with meals. Qty: 60 tablet Refills: 1 HYDROcodone-acetaminophen (NORCO) 1 tablet Take 1 tablet by mouth every 8 hours as needed. Earliest Fill Date: 06/06/17 Qty: 10 tablet Refills: 0 Associated Diagnoses:Cancer associated pain acetaminophen (TYLENOL) 650 mg Take 650 mg by mouth every 6 hours as needed. albuterol HFA (PROVENTIL HFA, VENTOLIN HFA) 2 Puffs Inhale 2 Puffs as instructed every 6 hours as needed. Qty: 1 Inhaler Refills: 3 FUTURE APPOINTMENTS: Future Appointments Date Time Provider Department Center 06/10/2017 10:30 AM Jaziel [facility] 06/10/2017 1:30 PM Akbar [facility] TIME OF CARE (Use first blank if not applicable): TIME OF CARE: Discharge Management: I personally spent greater than 30 minutes involved in the discharge management of this patient. SIGNATURE: Irineo Mcintyre MD PATIENT NAME: Delmi Phillips DATE: June 09, 2017 TIME: 3:14 PM PAGER/CONTACT #: [phone] CASE MGT INIT Observed: 06/09/2017 Status: COMPLETED Source: [facility] 12:10 PM [facility] REPOSITORY HNO ID: [id number] Author: Silvia (Rn) TANYA Escobar Service: Care Management Author Type: Registered Nurse Type: Care Mgt Initial Assessment Filed: 06/09/2017 12:55 PM Note Text: CARE MANAGEMENT: ASSESSMENT AND DISCHARGE PLAN SERVICE DATE: 06/09/2017 SERVICE TIME: 12:12 PM PRIMARY CARE PHYSICIAN: Jerry Aguirre CNP ADMISSION STATUS: Inpatient Needs Prior to Discharge: To Be Determined 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 Health Issues Impacting Discharge Plan: None Last Admission Date: Previous admit date: 06/04/2017 Is this Within the Past 30 days? Yes Health Literacy: 1. How often do you need to have someone help you when you read instructions, pamphlets, or other written material from your doctor or pharmacy? Never - 1 2. How confident are you filling out medical forms by yourself? Extremely - 1 If Patient scores > 3 on either question, the following interventions were put into place: Patient did not score > 3 FUNCTIONAL AND COGNITIVE/BEHAVIORAL PRIOR TO ADMISSION: Baseline Mental Status: Alert AND Oriented, Person, Place , Time and Situation Functional Status: Independent Was prior to admission, Now with left sided weakness due to spinal lesions. Does Patient Currently Receive Any Community Services or Home Care? None Equipment Prior to Admission: None Has the Patient Been in a Group Home Facility in the Past 30 days? No SOCIAL: Living Arrangement: Home Lives With: Spouse Financial Resources: Retired Primary Contact: Extended Emergency Contact Information Primary Emergency Contact: Radha Phillips Address: [address] [place] [address] Relation: Spouse Secondary Emergency Contact: LoveMaria L Mobile Relation: Daughter Supportive: Yes Other Important Patient Contacts: None Caregiver Assessment: Caregiver is ready, willing and able to meet the patient's needs as recommended by the inter-professional team? Yes Patient's transition needs and plan for meeting these needs: plan is home when discharged. 3 steps into home, Bed and bath first floor, Pt may need some sort of physical therapy, or treatment. Does the patient have an acute stroke diagnosis, or has the patient had a stroke during this admission? No Medication Adherence: I am convinced of the importance of my prescription medication: Agree completely - 0 I worry that my prescription medication will do more harm than good to me Disagree completely - 0 I feel financially burdened by my [id number] expenses for my prescription medication: Disagree completely - 0 Patient is categorized as low risk < 2 Are you interested in bedside delivery of your medications? Yes Food Concerns: In the Last Month, Have You had Trouble Getting Food? No trouble getting food During the Last Month, Have You Worried Whether Your Food Would Run Out Before You Had Enough Money to Buy More? No Is the Patient Psychosocially Complex? No ASSESSMENT AND PLAN: Medical Needs: None Psychosocial Needs: None FREEDOM OF CHOICE EXPLAINED: Yes Pt aware of freedom of choice, unsure of discharge needs at this time. POTENTIAL TRANSITION PLANS To Be Determined print project manager met with patient at bedside. Explained role of maintenance shop welder and discharge planning. Family at bedside, Await doctors plan of care. Anticipate some discharge needs, but awaiting testing and results. ? SIGNATURE: Silvia Escobar RN PATIENT NAME: Delmi Phillips DATE: June 09, 2017 TIME: 12:12 PM PAGER/CONTACT #: [phone] PROGRESS Observed: 06/09/2017 Status: COMPLETED Source: [place] 11:06 AM [facility] REPOSITORY HNO ID: [id number] Author: Luis Angel Bills Service: Neurosurgery Author Type: Physician Type: Progress Notes Filed: 06/09/2017 3:33 PM Note Text: Neurosurgery Inpatient Progress Note Interval HPI: MRI brain and T-spine acquired. Stable thoracic spine disease. MRI brain revealing multiple intracranial metastases with hemorrhage in R superior frontal gyrus lesion. Objective: 06/08/17 1800 06/08/17 2126 06/09/17 0207 06/09/17 1034 BP: 165/86 151/83 147/86 158/84 Pulse: 76 93 92 94 Resp: 16 Temp: 36.8 ?C (98.3 ?F) 37 ?C (98.6 ?F) 36.6 ?C (97.9 ?F) 36.3 ?C (97.3 ?F) TempSrc: Oral Oral Oral Oral SpO2: 94% 93% 92% 93% Height: 177.8 cm (5' 10) EXAM: AAOx3 PERRL, EOMI FS, TM LUE: D: 5/, B: 5/, T: 55, /5, I: 5 RUE: D: 08/06, B: 08/06, T: 08/06, , I: 08/06 LLE: HF: 08/06, KE: 08/06, DF: 08/06, EHL: 08/06, PF: 08/06 RLE: HF: 08/06, KE: 08/06, DF: 08/06, EHL: 08/06, PF: 08/06 SILT, L-hemibody paresthesias A/P: 66y M with newly diagnosed metastatic cancer (primary unknown, s/p liver biopsy on 06/06, pathology pending) with T4 lesion causing left sided spinal cord compression from 06/03 MRI, who presented to [place] ED for 1 day of L-hemibody paresthesias and transient L foot drop - neuro stable to improved - continue steroids - MRI brain and T-spine reviewed, will discuss results with Dr. Bills (spine) and Dr. Almeida (cranial) - please consult radiation-oncology for newly discovered intracranial metastases and for thoracic lesion - further discussion of operative plans for thoracic lesion pending pathology finalization ? Signature: Carlos De Leon M.D. Neurosurgery, PGY-3 Pager: [phone] Multiple organ systems with mets including brain Recommend palliative XRT for T4 lesion Luis Angel Bills MD XR THORACIC 2V AP/LAT Observed: 06/09/2017 Status: F Source: [place] 10:05 AM [facility] REPOSITORY * * *Final Report* * * DATE OF EXAM: Jun 09 2017 10:05AM JOJO [id number] - XR THORACIC 2V AP/LAT / PROCEDURE REASON: Bony metastasis (HCC) * * * * Physician Interpretation * * * * EXAMINATION: XR THORACIC 2V AP/LAT PATIENT/TECHNOLOGIST PROVIDED HISTORY: r/o lesions CLINICAL INFORMATION: Bony metastasis (HCC) TECHNIQUE: Frontal, lateral, and swimmers views of the thoracic spine. (3 images) COUNTING REFERENCE: T1 and the first rib. There are 12 rib bearing vertebral bodies. RESULT: Comparison is made with concurrent MR examination obtained the same day There is moderate pathologic compression of the T4 vertebral body. Left pedicle is poorly visualized, consistent with neoplastic involvement. Remaining vertebral bodies are normal in height and alignment. The interspaces are maintained. The remaining pedicles appear intact. There are numerous small nodular lesions in the mid to lower lung zones, most compatible with miliary metastatic disease. IMPRESSION: MODERATE PATHOLOGIC COMPRESSION AT T4. NUMEROUS SMALL PULMONARY PARENCHYMAL NODULES SUGGEST METASTATIC DISEASE Senior Piping Designer: MERRY Transcribe Date/Time: Jun 09 2017 10:13A Dictated by : VIDA LOFTON MD This examination was interpreted and the report reviewed and electronically signed by: VIDA LOFTON MD on Jun 09 2017 10:27AM EST [id number] XR CERVICAL 2V Observed: 06/09/2017 Status: F Source: [place] AP/LAT 10:05 AM [facility] REPOSITORY * * *Final Report* * * DATE OF EXAM: Jun 09 2017 10:05AM JOJO [id number] - XR CERVICAL 2V AP/LAT / PROCEDURE REASON: Bony metastasis (HCC) * * * * Physician Interpretation * * * * EXAMINATION: XR CERVICAL 2V AP/LAT PATIENT/TECHNOLOGIST PROVIDED HISTORY: r/o lesions CLINICAL INFORMATION: Bony metastasis (HCC) TECHNIQUE: Frontal and lateral views of the cervical spine. (2 images) COUNTING REFERENCE: Craniocervical junction COMPARISON: MR examination dated 06/03/2017 RESULT: Metastatic lesion within the mid C4 vertebral body, identified on the prior MR examination, is occult by plain film. Vertebral body height and contour are unremarkable. There is trivial anterolisthesis of C3 on C4. Severe disc space narrowing is present at C5/C6 and C6/C7 with accompanying degenerative osteophyte formation. Prevertebral soft tissue swelling is not seen. The atlanto-axial interval appears normal. There is moderate multilevel bilateral (greater on the right) facet and uncovertebral arthropathy. IMPRESSION: DEGENERATIVE CHANGES. KNOWN C4 METASTATIC LESION IS RADIOGRAPHICALLY OCCULT. Senior Piping Designer: PSYCHIATRIC Transcribe Date/Time: Jun 09 2017 10:27A Dictated by : VIDA LOFTON MD This examination was interpreted and the report reviewed and electronically signed by: VIDA LOFTON MD on Jun 09 2017 10:31AM EST [id number] PROGRESS Observed: 06/09/2017 Status: COMPLETED Source: [place] 9:57 AM [facility] REPOSITORY HNO ID: [id number] Author: Phyllis Davis Service: (none) Author Type: (none) Type: Progress Notes Filed: 06/09/2017 9:57 AM Note Text: Radiology Service Progress Note PATIENT NAME: Delmi Phillips DATE OF SERVICE: June 09, 2017 TIME: 9:57 AM PATIENT IDENTITY VERIFICATION COMPLETED USING TWO (2) METHODS: Patient confirmed name verbally and ID band matches.. PATIENT GENDER DATA: Male PATIENT RELEVANT IMPLANT DATA REVIEWED: Not Applicable RADIOLOGY DEPARTMENT: General X-ray: Exam(s) Completed: Spine X-Ray(s): Cervical AP / LAT and Thoracic PERIPHERAL IV DATA: Not applicable SIGNED BY: Phyllis Davis June 09, 2017 9:57 AM MRI THORACIC SPINE Observed: 06/09/2017 Status: F Source: [place] WO/W IVCON 8:54 AM [facility] REPOSITORY * * *Final Report* * * DATE OF EXAM: Jun 09 2017 8:54AM QBM [id number] - MRI THORACIC SPINE WO/W IVCON / PROCEDURE REASON: Left sided numbness * * * * Physician Interpretation * * * * Clinical history: Metastatic disease of unknown primary with liver biopsy results pending. Technique: MRI brain intracranial mass protocol and thoracic spine without/with contrast Contrast: Dotarem Contrast Dose (cc): 16 Route of Administration: IV Comparison: MRI total spine dated 06/03/[address] of the chest, abdomen, and pelvis with chest component dated 05/11/2017 and the remainder dated 05/25/2017 Result: Brain: Metastatic disease with minimal to predominant hemorrhagic components as evidenced by susceptibility artifact, variable associated intrinsic T1 hyperintensity, variable edema on FLAIR, and variable enhancement best seen on susceptibility weighted imaging series 13 as follows: Image 45, right parietal vertex, 3 mm focus of susceptibility artifact with trace edema and perhaps minimal enhancement. Image 44, anterolateral margin of right superior frontal gyrus, 4 mm ring of susceptibility artifact with trace intrinsic T1 hyperintensity and fairly well pronounced enhancement. Image 43, left paracentral lobule, 5 mm ring of susceptibility artifact with subtle associated enhancement and minimal edema. Image 37, dorsal lateral margin of the right frontal operculum/motor strip, 4 mm focus of susceptibility artifact with associated edema and trace intrinsic T1 hyperintensity/enhancement. Image 36, punctate nonspecific focus susceptibility artifact in the left frontal lobe white matter without additional associated abnormal signal or enhancement is a very subtle metastatic focus. Image 36, ventral paramedian right frontal lobe, 1.6 cm area of susceptibility artifact and intrinsic T1 hyperintensity with perhaps minimal associated enhancement with some surrounding edema. Image 35, medial right frontal operculum, 8mm ring of susceptibility artifact with associated enhancement and surrounding vasogenic edema. Image 11, left inferior cerebellar peduncle, 5 mm focus of susceptibility artifact is associated edema and minimal if any enhancement. Trace restricted diffusion associated with the ventral paramedian right frontal metastasis not unexpected given the predominant blood products. Negative for significant space occupying hematoma, significant mass effect, and extra-axial collection. The major intracranial vessels are grossly patent as evidenced by normal appearing flow voids although rarely thrombosis/thromboembolus may mimic normal flow void. Extensive right mastoid effusion with involvement of an aerated petrous apex. Unremarkable orbits. Inferior left maxillary sinus polypoid postictal thickening. Thoracic spine: Counting reference: The same vertebral body count is established whether utilizing the craniocervical junction or last fully formed disc labeled as L5/S1. Again noted is T1 hypointense, enhancing osseous metastatic disease scattered in the thoracic spine with greatest involvement of the T4 vertebral body with extension into the pedicles stable pathologic compression deformity with approximately 50% maximal height loss ventrally. Again noted is ventral and lateral epidural extension of tumor at the T4 level with moderate to severe canal compromise with some indentation of the spinal cord without evidence of abnormal cord signal with neural foraminal encroachment as well mostly the left T4/5 neural foramen. The degree of canal and neural foraminal compromise are unchanged although there are areas of nonenhancement suggestive of necrosis now appreciated most conspicuously at the junction of the body and left pedicle. Most conspicuous additional metastases are in the T7 and T5 vertebral bodies with approximately one half and one third involvement respectively. No new disease. No abnormal enhancement within the thecal sac. Numerous hepatic lesions and a markedly dilated urinary bladder again appreciated. Impression: 1. Numerous supratentorial and solitary infratentorial hemorrhagic metastases as detailed without significant mass effect. 2. No significant change in thoracic metastatic disease with epidural extension of tumor at the T4 level resulting in significant canal compromise with some compression of the spinal cord but without evidence of underlying cord changes. Communication: Dr. Joe Rojas at 9:30 AM on 06/09/2017. Senior Piping Designer: MERYR Transcribe Date/Time: Jun 09 2017 7:34A Dictated by : MEGAN MAN MD This examination was interpreted and the report reviewed and electronically signed by: MEGAN MAN MD on Jun 09 2017 9:30AM EST [id number] MRI BRAIN WO/W Observed: 06/09/2017 Status: F Source: [place] IVCON 8:54 AM [facility] [place] REPOSITORY * * *Final Report* * * DATE OF EXAM: Jun 09 2017 8:54AM QBM [id number] - MRI BRAIN WO/W IVCON / PROCEDURE REASON: Left sided numbness * * * * Physician Interpretation * * * * Clinical history: Metastatic disease of unknown primary with liver biopsy results pending. Technique: MRI brain intracranial mass protocol and thoracic spine without/with contrast Contrast: Dotarem Contrast Dose (cc): 16 Route of Administration: IV Comparison: MRI total spine dated 06/03/[address] of the chest, abdomen, and pelvis with chest component dated 05/11/2017 and the remainder dated 05/25/2017 Result: Brain: Metastatic disease with minimal to predominant hemorrhagic components as evidenced by susceptibility artifact, variable associated intrinsic T1 hyperintensity, variable edema on FLAIR, and variable enhancement best seen on susceptibility weighted imaging series 13 as follows: Image 45, right parietal vertex, 3 mm focus of susceptibility artifact with trace edema and perhaps minimal enhancement. Image 44, anterolateral margin of right superior frontal gyrus, 4 mm ring of susceptibility artifact with trace intrinsic T1 hyperintensity and fairly well pronounced enhancement. Image 43, left paracentral lobule, 5 mm ring of susceptibility artifact with subtle associated enhancement and minimal edema. Image 37, dorsal lateral margin of the right frontal operculum/motor strip, 4 mm focus of susceptibility artifact with associated edema and trace intrinsic T1 hyperintensity/enhancement. Image 36, punctate nonspecific focus susceptibility artifact in the left frontal lobe white matter without additional associated abnormal signal or enhancement is a very subtle metastatic focus. Image 36, ventral paramedian right frontal lobe, 1.6 cm area of susceptibility artifact and intrinsic T1 hyperintensity with perhaps minimal associated enhancement with some surrounding edema. Image 35, medial right frontal operculum, 8mm ring of susceptibility artifact with associated enhancement and surrounding vasogenic edema. Image 11, left inferior cerebellar peduncle, 5 mm focus of susceptibility artifact is associated edema and minimal if any enhancement. Trace restricted diffusion associated with the ventral paramedian right frontal metastasis not unexpected given the predominant blood products. Negative for significant space occupying hematoma, significant mass effect, and extra-axial collection. The major intracranial vessels are grossly patent as evidenced by normal appearing flow voids although rarely thrombosis/thromboembolus may mimic normal flow void. Extensive right mastoid effusion with involvement of an aerated petrous apex. Unremarkable orbits. Inferior left maxillary sinus polypoid postictal thickening. Thoracic spine: Counting reference: The same vertebral body count is established whether utilizing the craniocervical junction or last fully formed disc labeled as L5/S1. Again noted is T1 hypointense, enhancing osseous metastatic disease scattered in the thoracic spine with greatest involvement of the T4 vertebral body with extension into the pedicles stable pathologic compression deformity with approximately 50% maximal height loss ventrally. Again noted is ventral and lateral epidural extension of tumor at the T4 level with moderate to severe canal compromise with some indentation of the spinal cord without evidence of abnormal cord signal with neural foraminal encroachment as well mostly the left T4/5 neural foramen. The degree of canal and neural foraminal compromise are unchanged although there are areas of nonenhancement suggestive of necrosis now appreciated most conspicuously at the junction of the body and left pedicle. Most conspicuous additional metastases are in the T7 and T5 vertebral bodies with approximately one half and one third involvement respectively. No new disease. No abnormal enhancement within the thecal sac. Numerous hepatic lesions and a markedly dilated urinary bladder again appreciated. Impression: 1. Numerous supratentorial and solitary infratentorial hemorrhagic metastases as detailed without significant mass effect. 2. No significant change in thoracic metastatic disease with epidural extension of tumor at the T4 level resulting in significant canal compromise with some compression of the spinal cord but without evidence of underlying cord changes. Communication: Dr. Joe Rojas at 9:30 AM on 06/09/2017. Senior Piping Designer: MERRY Transcribe Date/Time: Jun 09 2017 7:34A Dictated by : MEGAN MAN MD This examination was interpreted and the report reviewed and electronically signed by: MEGAN MAN MD on Jun 09 2017 9:30AM EST [id number] ALLIED HEALTH Observed: 06/09/2017 Status: COMPLETED Source: [place] 6:44 AM [facility] REPOSITORY HNO ID: [id number] Author: Paulette Jarrett Gill Box Operator Service: (none) Author Type: (none) Type: Allied Health Filed: 06/09/2017 6:45 AM Note Text: Radiology Service Progress Note PATIENT NAME: Delmi Phillips DATE OF SERVICE: June 09, 2017 TIME: 6:44 AM PATIENT IDENTITY VERIFICATION COMPLETED USING TWO (2) METHODS: ID Band and Date of . PATIENT GENDER DATA: Male PATIENT RELEVANT IMPLANT DATA REVIEWED: Yes RADIOLOGY DEPARTMENT: MR; Exam(s) Completed: Head: Routine Brain Spine: Thoracic spine PERIPHERAL IV DATA: Inpatient: see LDA documentation SIGNED BY: Paulette Jarrett Gill Box Operator June 09, 2017 6:44 AM CBC AND DIFFERENTIAL Collected: 06/09/2017 Status: F Source: [place] 5:46 AM [facility] REPOSITORY TYPE CODE TESTS RESULT OUT OF REFERENCE UNITS RANGE LAB WBC 3.70-11.00 k/uL WBC 4.61 LAB RBC 4.20-6.00 m/uL RBC 4.52 LAB HGB 13.0-17.0 g/dL Hemoglobin 13.1 LAB HCT 39.0-51.0 % Hematocrit 39.8 LAB MCV 80.0-100.0 fL MCV 88.1 LAB MCH 26.0-34.0 pG MCH 29.0 LAB MCHC 30.5-36.0 g/dL MCHC 32.9 LAB RDWCV 11.5-15.0 % RDW-CV 13.7 LAB PLTCT 150-400 k/uL Platelet Count 331 LAB MPV 9.0-12.7 fL MPV 9.9 LAB ANEUT % Neut% 80.9 LAB AANEUT 1.45-7.50 k/uL Abs Neut 3.73 LAB ALYMP % Lymph% 15.0 LAB AALYMP 1.00-4.00 k/uL Low Abs Lymph 0.69 LAB AMONO % [place]% 4.1 LAB AAMONO <0.87 k/uL Abs [place] 0.19 LAB AEOS % Eosin% 0.0 LAB AAEOS <0.46 k/uL Abs Eosin <0.03 LAB ABASO % Baso% 0.0 LAB AABASO <0.11 k/uL Abs Baso <0.03 LAB AUNRBC 0 /100 WBC NRBCs 0.0 LAB ABNRBC <0.01 k/uL Absolute nRBC <0.01 LAB DTYP DTYPE Auto Diff Performed By: #### CBCDIF, BMP #### [facility] [address] [place] [address] BASIC METABOLIC PANL Collected: 06/09/2017 Status: F Source: [place] 5:46 AM [facility] REPOSITORY TYPE CODE TESTS RESULT OUT OF REFERENCE UNITS RANGE LAB GLU 74-99 mg/dL High Glucose 150 Result Comment: The [place] [employer] Association (ADA) provides guidance for cutoff values for fasting glucose and random glucose. The ADA defines fasting as no caloric intake for at least 8 hours. Fas ting plasma glucose results between 100 to 125 mg/dL indicate increased risk for diabetes (prediabetes). Fasting plasma glucose results greater than or equal to 126 mg/dL meet the criteria for diagnosis of diabetes. In the absence of unequivocal hyperglycemia, results should be confirmed by repeat testing. In a patient with classic symptoms of hyperglycemia or hyperglycemic crisis, random plasma glucose results greater than or equal to 200 mg/dL meet the criteria for diagnosis of diabetes. Reference: Standards of Medical Care in Diabetes 2016, [place] [employer]. Diabetes Care. 2016.39(Suppl 1). LAB BUN 9-24 mg/dL BUN 17 LAB CRET 0.73-1.22 mg/dL Creatinine 0.84 LAB NA 136-144 mmol/L Low Sodium 135 LAB K 3.7-5.1 mmol/L Potassium 4.0 LAB CL 97-105 mmol/L Chloride 97 LAB CO2 22-30 mmol/L Low CO2 18 LAB AGAP 9-18 mmol/L Anion Gap High 20 LAB CA 8.5-10.2 mg/dL Calcium, Total 9.2 LAB GFRAA eGFR- Amer. >60 LAB GFRNAA . eGFR-All Other Races >60 Result Comment: eGFR (Estimated GFR) Units of measure: mL/min/1.73 meters squared eGFR is derived from the reexpressed MDRD Study equation using the following parameters: serum creatinine, age, gender and race. The creatinine assay has been calibrated to be traceable to IDMS. An eGFR <60 mL/min/1.73m2 for >3 months is consistent with chronic kidney disease. Refer to KDOQI guidelines for clinical interpretation. In patients with unstable renal function, e.g. those with acute kidney injury, the eGFR may not accurately reflect actual GFR. Performed By: #### CBCDIF, BMP #### [facility] [address] [place], [place] [address] CNCO Observed: 06/09/2017 Status: COMPLETED Source: [place] 12:00 AM [facility] REPOSITORY Letter Text Irineo Mcintyre [address] [place] [address] Release of Information for Delmi Phillips Birthday 1950 [facility] Information: MRI scans on 06/04/2017 and 06/09/[address] Mcarthur and Zay at [facility]. Signature of patient: Date: Thank you, Irineo Mcintyre MD CONSULT Observed: 06/08/2017 Status: COMPLETED Source: [place] 7:32 PM [facility] REPOSITORY HNO ID: [id number] Author: Pennie (Juan) Service: Neurosurgery Author Type: Resident Type: Consults Filed: 06/08/2017 9:36 PM Note Text: NEUROSURGERY CONSULT HISTORY AND PHYSICAL EXAMINATION Patient Name: Delmi Phillips CONSULTED BY: medicine CONSULTED FOR: LUE/LLE paresthesias CHIEF COMPLAINT: LUE/LLE paresthesias HPI: 66 year old right handed male with recently diagnosed metastatic cancer, incidentally found after workup for compression fracture, with CT chest/abd/pelvis demonstrating lesions in his spleen, liver, lungs and spine (pathologic fractures at C4, T4, S2 and degenerative disease at C5-6 with cervical stenosis), who was recently admitted from 06/03- 06/06 under medicine, when he underwent liver biopsy (pathology pending), spine surgery consulted at that time for spinal cord compression at T4, with symptoms of back pain. He presented to [facility] ED today for 1 day of L side paresthesias and difficulty ambulating due to L side foot drop. He was transferred to [facility] for further care. He denies headache, nausea/vomiting, right side symptoms, recent trauma/falls, seizures, speech changes, vision changes, bowel/bladder incontinence, urinary retention, or new pain. His LUE/LLE numbness has been stable since this am, not worsening, no periods of improvement in between. Anti-platelets/anti-coagulants: lovenox 40 daily PAST MEDICAL HISTORY: No past medical history on file. PAST SURGICAL HISTORY: No past surgical history on file. FAMILY HISTORY: No family history on file. SOCIAL HISTORY: Social History Marital status: Spouse name: Years of education: Number of children: Social History Main Topics Smoking status: Never Smoker Smokeless status: Current User Types: Snuff Alcohol use: Yes Drug use: No MEDICATIONS: traMADol (ULTRAM) 50 mg tablet Take 1 tablet by mouth every 6 hours as needed for up to 14 days. naproxen (NAPROSYN) 500 mg tablet Take 1 tablet by mouth twice daily with meals. HYDROcodone-acetaminophen (NORCO) 5-325 mg per tablet Take 1 tablet by mouth every 8 hours as needed for up to 7 days. acetaminophen (TYLENOL) 325 mg tablet Take 650 mg by mouth every 6 hours as needed. albuterol HFA (VENTOLIN HFA) 90 mcg/actuation inhaler Inhale 2 Puffs as instructed every 6 hours as needed. Current hospital medications: 0.9% NaCl 3-5 mL 3-5 mL INTRAVENOUS q 12 H enoxaparin 40 mg injection (LOVENOX) 40 mg SUBCUTANEOUS DAILY traMADol 50 mg tab(s) (ULTRAM) 50 mg ORAL q 6 H PRN dexamethasone sodium phosphate 10 mg injection (DECADRON) 10 mg INTRAVENOUS ONCE dexamethasone sodium phosphate 4 mg injection (DECADRON) 4 mg INTRAVENOUS q 6 H acetaminophen 650 mg tab(s) (TYLENOL) 650 mg ORAL q 4 H PRN iv contrast (radiology procedure) INTRAVENOUS DIRECTED PRN ALLERGIES: ALLERGIES Allergen Reactions - Sulfa (Sulfonamide * Rash - Tizanidine GI Upset COMPLETE REVIEW OF SYSTEMS: See HPI PHYSICAL EXAM: Awake, alert, NAD Oriented x 3 Speech fluent No dysarthria Repetition intact, naming 3/3 PERRL, EOMI FS, TM, FSILT VF intact RUE delt 5, bicep 5, tricep 5, commercial center manager 5, intrinsics 5 LUE delt 5, bicep 5, tricep 5, commercial center manager 5, intrinsics 5 No Oneal's RLE hip flex 5, knee ext 5, DF 5, EHL 5, PF 5 LLE hip flex 5, knee ext 5, DF 5, EHL 5, PF 5 SILT all dermatomes to light touch (reports 100% bilaterally, no sensory level) No clonus No hyperreflexia Passive and active rectal tone intact ASSESSMENT AND PLAN: 66y M with newly diagnosed metastatic cancer (primary unknown, s/p liver biopsy on 06/06, pathology pending) with T4 lesion causing left sided spinal cord compression from 06/03 MRI. Presented to [facility] ED for 1 day of LUE/LLE paresthesias and L foot drop. Neurologically intact, no deficits appreciated. MRI brain wwo and MRI thoracic wwo Upright XR cervical/thoracic Steroids per primary Follow pathology Ok to resume diet, no urgent surgical indication Further plan pending imaging and pathology Discussed with chief and staff, Dr. Bills Signature: Pennie Cabrera MD Neurosurgery PGY2 Pager [phone] Please page [phone] after 6 PM and on weekends PROTIME Collected: 06/08/2017 Status: F Source: [place] 7:07 PM [facility] REPOSITORY TYPE CODE TESTS RESULT OUT OF RANGE REFERENCE UNITS LAB PSEC 9.7-13.0 sec PT Sec 10.2 LAB INR 0.9-1.3 PT INR 1.0 Result Comment: Vitamin K Antagonist (VKA) Therapeutic Range: INR 2 to 3 (Target INR of 2.5) Note: For patients treated with VKA drugs, such as warfarin, the [place] [employer] 2012 Guideline recommends a therapeutic INR range of 2 to 3 (target INR of 2.5). This recommendation includes high-risk patients with antiphospholipid syndrome with previous arterial or venous thromboembolism, current-generation mechanical or bioprosthetic aortic heart valve replacement. Note: Patients with mechanical aortic valve replacement and additional risk factors for thromboembolic events (atrial fibrillation, previous thromboembolism, LV dysfunction, hypercoagulable conditions) or an older generation mechanical AVR (i.e., ball in-Cage) or any mechanical MVR should have a INR therapeutic range of 2.5 to 3.5 (target INR of 3). Sisi GH, et al. Chest 2012, 141:7S-47S Blanca RA, et al. [facility] 2017, 70: 252-289 Performed By: #### PT, PTT, CMP, MG1, PHOS, CBCDIF #### [facility] [address] [place] [address] APTT Collected: 06/08/2017 Status: F Source: [place] 7:07 PM [facility] REPOSITORY TYPE CODE TESTS RESULT OUT OF RANGE REFERENCE UNITS LAB APTT 23.0-32.4 sec APTT 27.6 Result Comment: Unfractionated Heparin Therapeutic Ranges: Standard Heparin Nomogram: 53 to 78 seconds (anti-Xa level of 0.3 to 0.7 U/ml) Low Dose/ACS Nomogram: 49 to 67 seconds (anti-Xa level of 0.2 to 0.5 U/ml) Stroke Treatment Nomogram: 49 to 67 seconds (anti-Xa level of 0.2 to 0.5 U/ml) Note: The APTT therapeutic range has been determined for the current lot of laboratory APTT reagent in use throughout the [facility]. Performed By: #### PT, PTT, CMP, MG1, PHOS, CBCDIF #### [facility] [address] [place], [place] [address] COMP METABOLIC PANEL Collected: 06/08/2017 Status: F Source: [place] 7:07 PM [facility] [place] REPOSITORY TYPE CODE TESTS RESULT OUT OF REFERENCE UNITS RANGE LAB TP 6.3-8.0 g/dL Protein, Total 7.4 LAB ALB 3.9-4.9 g/dL Albumin 4.1 LAB CA 8.5-10.2 mg/dL Calcium, Total 9.1 LAB TBIL 0.2-1.3 mg/dL Bilirubin, Total 0.6 LAB ALKP 36-108 U/L Alkaline Phosphatase 95 LAB AST 14-40 U/L AST 23 LAB GLU 74-99 mg/dL Glucose High 139 Result Comment: The [place] Diabetes [employer] (ADA) provides guidance for cutoff values for fasting glucose and random glucose. The ADA defines fasting as no caloric intake for at least 8 hours. Fas ting plasma glucose results between 100 to 125 mg/dL indicate increased risk for diabetes (prediabetes). Fasting plasma glucose results greater than or equal to 126 mg/dL meet the criteria for diagnosis of diabetes. In the absence of unequivocal hyperglycemia, results should be confirmed by repeat testing. In a patient with classic symptoms of hyperglycemia or hyperglycemic crisis, random plasma glucose results greater than or equal to 200 mg/dL meet the criteria for diagnosis of diabetes. Reference: Standards of Medical Care in Diabetes 2016, [place] [employer]. Diabetes Care. 2016.39(Suppl 1). LAB BUN 9-24 mg/dL BUN Low 8 LAB CRET 0.73-1.22 mg/dL Creatinine Low 0.67 LAB NA 136-144 mmol/L Sodium Low 132 LAB K 3.7-5.1 mmol/L Potassium 4.5 LAB CL 97-105 mmol/L Chloride Low 94 LAB CO2 22-30 mmol/L CO2 23 LAB AGAP 9-18 mmol/L Anion Gap 15 LAB ALT 10-54 U/L ALT 22 LAB GFRAA eGFR- Amer. >60 LAB GFRNAA . eGFR-All Other Races >60 Result Comment: eGFR (Estimated GFR) Units of measure: mL/min/1.73 meters squared eGFR is derived from the reexpressed MDRD Study equation using the following parameters: serum creatinine, age, gender and race. The creatinine assay has been calibrated to be traceable to IDMS. An eGFR <60 mL/min/1.73m2 for >3 months is consistent with chronic kidney disease. Refer to KDOQI guidelines for clinical interpretation. In patients with unstable renal function, e.g. those with acute kidney injury, the eGFR may not accurately reflect actual GFR. Performed By: #### PT, PTT, CMP, MG1, PHOS, CBCDIF #### [facility] [address] [place], [place] [address] MAGNESIUM Collected: 06/08/2017 Status: F Source: [place]ERTS [address] [place] [address] REPOSITORY TYPE CODE TESTS RESULT OUT OF REFERENCE UNITS RANGE LAB MG 1.7-2.3 mg/dL Magnesium 2.3 Performed By: #### PT, PTT, CMP, MG1, PHOS, CBCDIF #### [facility] [address] [place], [place] [address] PHOSPHORUS Collected: 06/08/2017 Status: F Source: [place]ERT[place] [address] [place] [address] REPOSITORY TYPE CODE TESTS RESULT OUT OF REFERENCE UNITS RANGE LAB PHOS 2.7-4.8 mg/dL Phosphorus 3.1 Performed By: #### PT, PTT, CMP, MG1, PHOS, CBCDIF #### [facility] [address] [place], [place] [address] CBC AND DIFFERENTIAL Collected: 06/08/2017 Status: F Source: [place] [address] [place] [address] REPOSITORY TYPE CODE TESTS RESULT OUT OF REFERENCE UNITS RANGE LAB WBC 3.70-11.00 k/uL WBC 6.58 LAB RBC 4.20-6.00 m/uL RBC 4.60 LAB HGB 13.0-17.0 g/dL Hemoglobin 13.2 LAB HCT 39.0-51.0 % Hematocrit 41.1 LAB MCV 80.0-100.0 fL MCV 89.3 LAB MCH 26.0-34.0 pG MCH 28.7 LAB MCHC 30.5-36.0 g/dL MCHC 32.1 LAB RDWCV 11.5-15.0 % RDW-CV 13.6 LAB PLTCT 150-400 k/uL Platelet Count 303 LAB MPV 9.0-12.7 fL MPV 10.2 LAB ANEUT % Neut% 94.8 LAB AANEUT 1.45-7.50 k/uL Abs Neut 6.24 LAB ALYMP % Lymph% 4.3 LAB AALYMP 1.00-4.00 k/uL Abs Low Lymph 0.28 LAB AMONO % [place]% 0.9 LAB AAMONO <0.87 k/uL Abs [place] 0.06 LAB AEOS % Eosin% 0.0 LAB AAEOS <0.46 k/uL Abs Eosin 0.00 LAB ABASO % Baso% 0.0 LAB AABASO <0.11 k/uL Abs Baso 0.00 LAB OVAIMI Ovalocytes Few LAB PLTEST Platelet Estimate Platelet estimate adequate LAB DTYP DTYPE Manual Diff Performed By: #### PT, PTT, CMP, MG1, PHOS, CBCDIF #### [facility] [address] [place] [id number] NURSING PROG Observed: 06/08/2017 Status: COMPLETED Source: [place] 6:22 PM [facility] REPOSITORY HNO ID: [id number] Author: Magali (Rn) TANYA Hollins Service: (none) Author Type: Registered Nurse Type: Nursing Progress Note Filed: 06/08/2017 7:43 PM Note Text: Nursing Progress Note Patient Name: Delmi Phillips Patient Location: Transfer Note: Patient transferred into room/unit G100-18 in stable condition. Actions taken: patient orientated to room, call light with in reach, pt assessed, patient explained that he is a high falls risk, Bed alarm on patient. Patient was transferred to [facility] from [place] ED, Pt said he developed new onset numbness on the left side, pt states nothing was really done for me at [facility], I had no scans, I was just basically waiting to come to here to the clinic This nurse paged 2clot per management - to get an opinion, 2-clot human resources operations manager believes that the patients numbness and tingling on his left side are from worsening spinal cord compression, MRI ordered. Patient neuro assessment is negative for s/s of stroke -(see NPR) This note was completed by: Magali Hollins RN HISTORY PHYSICAL Observed: 06/08/2017 Status: COMPLETED Source: [place] 6:09 PM [facility] REPOSITORY HNO ID: [id number] Author: Horace Whitlock) Esha Service: General Internal Medicine Author Type: Physician Type: HANDP Filed: 06/09/2017 11:30 AM Note Text: [facility] History and Physical PATIENT NAME: Delmi Phillips SERVICE DATE: 06/08/2017 SERVICE TIME: 6:10 PM Chief Complaint Left-sided Upper and Lower Extremity Numbness History of Presenting Illness This is a 66 yoM with no significant past medical history who was recently admitted for back pain 06/03 to 06/06 and found to have multiple bony mets in cervical, thoracic, and lumbar regions with pathologic fracture and moderate cord compression at the level of T4 on MRI 06/04. Patient was discharged to follow with an Oncologist, Dr. Mcarthur, in [facility]. Patient states that since discharge two days ago, he has had new symptoms of numbness and tingling of his left upper and lower extremity. The symptoms mostly began earlier today. Patient also complains of feeling of weakness earlier in the day, noting that he had problems walking because he had left foot drop. He no longer complains of weakness but he is still feeling numbness and tingling on his left side. He denies any loss of bowel or bladder function. He states that he has had problems with urine stream for about 5-6 days but has had no incontinence episodes. Because pf these symptoms, he presented to [facility] ED earlier in the day and was transferred to [facility]. Of note, there has been no characterized primary cancer. MRI during his last admission showed an incidentally found 1.5 cm lesion in the right lobe of liver, which was biopsied; surgical pathology is still pending. He also has an OSH CT scan that is positive for pulmonary nodules. Review of Systems PAIN ASSESSMENT: Chronic midline back pain for past 4-5 months GENERAL: No weight loss, malaise or fevers HEENT: Negative for frequent or significant headaches, No changes in hearing or vision, no nose bleeds or other nasal problems NECK: Negative for lumps, goiter, pain and significant neck swelling RESPIRATORY: Negative for cough, hemoptysis, wheezing, COPD, dyspnea or shortness of breath CARDIOVASCULAR: Negative for chest pain, leg swelling, hypertension, CHF or palpitations GI: No nausea, vomiting, or diarrhea : No history of dysuria, frequency or incontinence MUSCULOSKELETAL: Negative for joint pain or swelling, back pain or muscle pain SKIN: Negative for lesions, rash, and itching HEMATOLOGY/LYMPHOLOGY: Negative for prolonged bleeding, bruising easily or swollen nodes ENDOCRINE: Negative for cold or heat intolerance, polyuria, polydipsia and goiter NEURO: No history of headaches, syncope, paralysis, seizures or tremors Family/Medical/Surgical/Social Hx No family history on file. No past medical history on file. No past surgical history on file. Social History Marital status: Spouse name: Years of education: Number of children: Social History Main Topics Smoking status: Never Smoker Smokeless status: Current User Types: Snuff Alcohol use: Yes Drug use: No Medications/Allergies traMADol (ULTRAM) 50 mg tablet Take 1 tablet by mouth every 6 hours as needed for up to 14 days. naproxen (NAPROSYN) 500 mg tablet Take 1 tablet by mouth twice daily with meals. HYDROcodone-acetaminophen (NORCO) 5-325 mg per tablet Take 1 tablet by mouth every 8 hours as needed for up to 7 days. acetaminophen (TYLENOL) 325 mg tablet Take 650 mg by mouth every 6 hours as needed. albuterol HFA (VENTOLIN HFA) 90 mcg/actuation inhaler Inhale 2 Puffs as instructed every 6 hours as needed. Sulfa (Sulfonamide Antibiotics); Tizanidine Physical Exam BP 165/86 Pulse 76 Temp 36.8 ?C (98.3 ?F) (Oral) Resp 18 Ht 177.8 cm (5' 10) SpO2 94% General: No acute distress. AANDOx3. HEENT: PERRLA. EOMi. Neck: No JVD. No LAD. CV: Normal rate and rhythm. No murmurs or rubs auscultated. Resp: CTA b/l. No wheezing or crackles. Abdomen: Soft, nontender, nondistended abdomen. BSx4. Extremities: No pedal edema b/l. Neuro: CN II-XII Grossly Intact. Data MRI Spine 06/04/2017 Cervical spine: Focus of marrow signal abnormality at C4 compatible with bony metastasis. ?No pathologic enhancement in the cervical cord. ?Severe degenerative disc disease in the lower cervical spine with Canal stenosis is worst at C5-C6. Thoracic spine: Multiple areas of abnormal marrow signal in the MID thoracic vertebrae. ?T4 is most affected which shows a 50% pathologic compression fracture with abnormal epidural metastatic soft tissue. ?This results in moderate CORD compression at this level without evidence for cord signal abnormality. No evidence of leptomeningeal disease in the thoracic CORD. Lumbar spine: Bony metastasis at the S2 segment. ?Lumbar vertebrae show no evidence of metastatic disease. ?No evidence of leptomeningeal disease. ?Severe neural foraminal stenoses at right L4-L5 and bilateral L5-S1 due to degenerative disc and facet disease. ?No pathologic enhancement involving conus medullaris or cauda equina. Incidentally noted 1.5 cm enhancing lesion in the right lobe of the liver. ?This is suspicious for an additional metastatic focus. Labs CBC: Recent Labs 06/06/17 0420 06/05/17 0539 06/04/17 0627 06/03/17 2142 WBC 8.83 8.35 6.28 8.04 HB 11.8* 12.8* 12.5* 13.2 HCT 36.7* 38.9* 39.2 40.6 PLT 298 337 281 263 MCV 89.3 88.6 88.3 89.8 RDWCV 13.8 13.4 13.8 13.6 NEUTP 68.4 79.9 72.4 65.1 ABSNEUT 6.05 6.67 4.55 5.21 LYMPHP 20.2 12.5 17.4 21.0 MONOP 10.0 7.5 7.5 11.8 EODINP 0.9 0.0 2.2 1.7 COAG: Recent Labs 06/06/17 0420 06/04/17 0628 APTT 26.2 28.2 INR 1.0 1.0 BMP: Recent Labs 06/06/17 0420 06/05/17 0539 06/04/17 0606/03/17 2142 GLUC 92 115* 96 91 NA 135* 131* 132* 131* K 4.6 4.1 4.5 3.9 CHLOR 100 94* 97 95* CO2 25 22 22 22 ANION 10 15 13 14 BUN 12 10 5* 5* CREAT 0.94 0.75 0.72* 0.67* CHEM: Recent Labs 06/06/17 0420 06/05/17 0539 06/04/17 0606/03/17 2142 ALB -- -- 3.5* -- TPROT -- -- 7.0 -- CA 8.5 9.0 8.9 8.5 HEPATIC: Recent Labs 06/04/17626 ALKPHOS 89 ALT 20 AST 24 TBILI 0.6 URINALYSIS:No results for input(s): PH, SPGR, UGLUC, UBILI, UKET, UHB, UPROT, UROBIL, UWBC, SSA in the last 168 hours. Invalid input(s): NITR CARDIAC: No results for input(s): CKTEST, CKMB, CKMBP, TROPT, PBNP in the last 168 hours. Assessment and Plan 66 yoM with no significant PMH who was recently admitted for back pain 06/03 to 06/06 and found to have multiple bony mets in cervical, thoracic, and lumbar regions with pathologic fracture and moderate cord compression at the level of T4 on MRI 06/04 presents with new onset LUE and LLE numbness and tingling. # Cord Compression Found on MRI at level T4 Normal neurological exam although complains of subjective numbness and tingling in LUE and LLE Prior CT imaging that showed lung nodules Incidentally found 1.5 cm lesion in the right lobe of liver biopsied 06/06 - Surgical Pathology Pending Plan IV Decadron 10 mg x1 then IV Decadron 4 mg q6h starting at midnight MRI Brain wo/w ICVON to evaluate for brain lesions Consult to Neurosurgery for evaluation of any urgent indication for surgery Consult Radiation Oncology for input Tylenol 650 mg q4h for mild to moderate pain Tramadol 50 mg q6h PRN for severe pain # Diet - NPO for now # VTE PPx - Lovenox 40 mg Daily # GI PPx - Not indicated # Dispo Planning - Home w. No Anticipated Needs # Code Status - Full Code SIGNATURE: Joe Rojas MD, PGY-1 PATIENT NAME: Delmi Phillips DATE: June 08, 2017 TIME: 6:10 PM PAGER: [phone] Note: These recommendations are not final until staffed by provider Please refer to excellent note above by Dr. Rojas for details ? HPI: This is pleasant 66 year old male with PMH significant for: ? - Tobacco Abuse ? 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 No leptomeningeal disease.) this appears to be from presumed Liver vs. Pulmonary primary. He underwent a liver biopsy during his last hospitalization, the results of which are still pending. Today he is transferred from [facility] ED with symptoms concerning for cord compression (L sided numbness, decreased rectal tone). On exam upon arrival here, he has persistent L sided numbness (UE, LE, buttocks) but no decreased rectal tone and no sensory level - strength and sensation otherwise intact. Denies any bowel/bladder incontinence, denies headaches/blurry vision. We will start IV decadron (10mg push followed by 4mg q6h). Given nature of symptoms (L sided numbness) will obtain brain MRI. Discussed with Radiation/Oncology overnight, no urgent indication for radiation - agreed with MRI brain given presentation. We also consulted Neurosurgery, with recommendations to follow. Patient reports that his home pain regimen was working well, will continue with Tylenol q4h for mild-moderate pain and Tramadol 50mg q6h PRN for severe pain. ? Rest as above. ? This note is not final until staffed. ? Christy Eckert MD Internal Medicine Resident - PGY3 Pager: [phone] 06/08/2017 6:10 PM Attending Note: I personally interviewed and examined Mr Phillips and confirmed the padgett elements of the history and physical exam documented by [place] the residents. Patient was readmitted to the outside hospital with history of sudden jerky movements of his arms and legs, tingling sensation in his left side and weakness in on the left side mainly in his legs. He feels that his left leg was weak and was unable to walk. He denies any headache visual loss , loss of control of bowel or bladder. No history of fever. Currently feels his pain is well controlled and his back. He also feels that his tingling sensation in his legs have resolved and there is no weakness. On clinical examination : No neurological deficits including sensations No upper motor neuron signs Had an MRI scan of brain which shows multiple supratentorial and solitary infratentorial hemorrhagic metastasis MRI of spine shows no significant change in thoracic metastatic disease but has epidural extension of tumor at T4 level with significant canal compromise with some compression of the spinal cord without evidence of underlying card changes which were seen previous. Plan: - Patient is unaware of the current diagnosis - We will await the pathology report of his liver biopsy - Advised bedrest - We'll discuss with neurosurgery whether he would need further intervention for his spinal lesions - Radio oncology consult I have reviewed his/her note above and endorse the findings and plan. A portion of this document has been created with the use of voice-recognition technology. It may contain inaccuracies such as: misspellings or inaccurate syntax or word sense that escaped review. ? ?Dr. Horace CHACKO MD June 09, 2017 11:30 AM EMERGENCY DEPARTMENT Observed: 06/08/2017 Status: F Source: [place] SUMMARY 2:53 PM [facility] Medical Records Department [address] [place] [address] Emergency Department Summary 06/08/17 1446 MR#: [id number] Acct: [id number] Name: DELMI PHILLIPS Rep #: [id number] : 1950 66 From: Skinny Mooney MD PCP: JATINDER Connolly Status: REG ER - ER Visit Summary Date of Service: 06/08/17 Chief Complaint: Acute numbness and decreased sensation perianal region. History of Present Illness: The patient is a 66 M who was recently diagnosed with metastatic cancer to C4, T4, T5 and liver. There were pulmonary nodules noted as well. Patient had a recent liver biopsy. Pathology has not returned. Hence today because of numbness left upper and lower extremity that started abruptly after he showered this morning. He denies bowel or bladder dysfunction. He does complain of altered sensation in the perianal region. Per discussion with family, patient and Dr. Spangler has not an MRI of his brain. He denies any visual, ocular or auditory symptoms. I trouble speech or swallowing. He denies any cardiac respiratory symptoms. He denies any GI symptoms. He does complain of back pain. He was on no meds prior to this incident. Physical Examination: No signs are noted. His blood pressure is elevated 164/95. Head is atraumatic normocephalic. Pupils are equal round reactive. Extraocular muscles are intact. TMs are pearly white with landmarks noted. Nares patent with no drainage. Posterior pharynx without erythema or exudate. Uvula is midline. There is no dysphonia or dysphasia. Trachea is midline. There is no stridor with auscultation of the neck. Heart is regular without murmur, gallop or rub. S1 and S2 are normal. Lungs are clear to auscultation with good movement of air bilaterally. Abdomen is soft nontender. He has altered sensation left upper and lower extremity. No Babinski sign. DTRs are symmetric. There is no clonus. He has decreased rectal tone and altered perianal sensation. Difficult to assess for anal wink. Test Results: BMP and CBC were pending at the time of his transfer to the [facility]. Emergency Department Course and Treatment: In light of his history of metastatic cancer to bone BMP and CBC were obtained. After discussion with Dr. Mcarthur, Dr. Levy neurosurgery at [facility] and Dr. Nesbitt MRI of the brain, cervical, thoracic and lumbar spine were ordered. I was informed at 1445 that he now has a bed at the [facility] Treatment Plan: Transfer to [facility] for definitive care Disposition: Transfer to [facility]. 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 It may contain incorrect words, spelling, and punctuation that were not noted in review of the chart prior to signing ED Disposition - Plan for ED Patient: Chief Complaint: Back Referrals: Jerry Aguirre NP-C [Primary Care Provider] - What to do if you have Problems For any increased pain, shortness of breath, bleeding, nausea or vomiting, chest pain, or any unexpected problems, contact your Primary Care Provider. Call [facility] ([phone]) or report to the closest Emergency Room. Call 911 if necessary. 06/08/17 1453 <Electronically signed by Skinny Mooney MD> Date Skinny Mooney MD Cosigner Signature (If Indicated): Date CC: CONTENT WRITER-C Jerry Aguirre; Akbar Mcarthur DO CBC W/DIFF, AUTOMATED Collected: 06/08/2017 Status: F Source: [place] 1:45 PM [facility] REPOSITORY TYPE CODE TESTS RESULT OUT OF RANGE REFERENCE UNITS LAB L100.1000 4.4-11.0 K/mm3 Normal WBC 9.0 LAB L100.1200 4.6-6.2 M/mm3 Low RBC 4.12 LAB L100.1300 13.0-16.5 g/dl Low HGB 11.8 LAB L100.1400 40-54 % Low HCT 37.1 LAB L100.1500 80-94 fL Normal MCV 90.0 LAB L100.1600 27.0-32.0 pg Normal MCH 28.6 LAB L100.1700 32-36 g/gl Low MCHC 31.8 LAB L100.1810 11.6-14.6 % Normal RDW CV 13.9 LAB L100.1820 35.1-43.9 fl High RDW SD 46.0 LAB L100.1900 150-450 K/mm3 Normal PLT 255 LAB L100.2000 6.2-12.0 fl Normal MPV 9.1 LAB L100.2100 47-70 % High NEUT% 82.0 LAB L100.2200 19-41 % Low LY% 8.2 LAB L100.2300 0-10 % Normal MONO% 9.2 LAB L100.2400 0-5 % Normal EO% 0.3 LAB L100.2500 0-1 % Normal BASO% 0.1 LAB L100.2550 0.0-0.9 % Normal IM GRAN % 0.200 Result Comment: IG% - Immature Granulocytes (promyelocytes, myelocytes and metamyelocytes) > 1% indicates that a LEFT SHIFT is Present. LAB L100.2620 2.0-7.7 X10 3/uL Normal Absolute Neut 7.4 LAB L100.2720 0.83-4.51 X10 3/ul Low Absolute Lymph 0.74 Performed By: #### L100.0100 #### [facility] [address] [place], [place], [address] BASIC METABOLIC Collected: 06/08/2017 Status: F Source: [place] PROFILE (BMP) 1:45 PM [facility] REPOSITORY TYPE CODE TESTS RESULT OUT OF RANGE REFERENCE UNITS LAB L501.0100 74-106 mg/dL High GLU 138 Result Comment: Fasting Glucose result greater than or equal to 126 mg/dL suggests DIABETES MELLITUS per A.D.A. criteria. Please note revised GLUCOSE reference range effective 2017. LAB L501.1000 7-18 mg/dL Normal BUN 9 LAB L501.1100 0.70-1.30 mg/dL Low CREAT,SERUM 0.68 Result Comment: The validity of the calculated GFR AND GFRAA in patients over 70 years has not been determined. Clinical correlation is essential. LAB L501.1110 >60 mL/min Normal EST GFR 125 Result Comment: Non- GFR Calc LAB L501.1115 >60 mL/min Normal EST GFR - AA 151 Result Comment: GFR Calc LAB L501.1255 ml/min Normal Estimated CRCL 75.03 LAB L501.1300 10-20 RATIO Normal BUN/CRE 13.3 LAB L501.2200 8.5-10 mg/dL Low .1 CA 8.4 LAB L501.5300 136-14 mmol/L Low 5 NA 133 LAB L501.5600 3.5-5. mmol/L Normal 1 K 3.8 LAB L501.5900 98-107 mmol/L Normal CL 100 LAB L501.6100 21.0-3 mmol/L Normal 2.0 CO2 28.0 LAB L501.6200 5-15 Normal GAP 5 Performed By: #### L500.2500 #### [facility] [address] [place], [address] CASE MANAGEM Observed: 06/06/2017 Status: COMPLETED Source: [place] 12:17 PM [facility] REPOSITORY HNO ID: [id number] Author: Rea David Service: Care Management Author Type: (none) Type: Care Mgt Progress Note Filed: 06/06/2017 12:17 PM Note Text: CARE MANAGEMENT PROGRESS NOTE SERVICE DATE: 06/06/2017 SERVICE TIME: 12:15 PM LOS: 2 days IM letter given to patient on 06/06/17. SIGNATURE: Rea David Jacket Changer PATIENT NAME: Delmi Phillips DATE: June 06, 2017 TIME: 12:17 PM PAGER/CONTACT #: [phone] PLAN OF CARE Observed: 06/06/2017 Status: COMPLETED Source: [place] 12:00 PM [facility] REPOSITORY HNO ID: [id number] Author: Olga Croft (Production Machine Tender) Service: (none) Author Type: (none) Type: Plan of Care Filed: 06/06/2017 12:00 PM Note Text: SCIENCE AND OPERATIONS OFFICER BEDSIDE DELIVERY SURVEY 1. Patient to use [facility] Bedside Delivery - NO staff communication 2. If fax, patient would like us to fax prescriptions to Pharmacy of choice a. Pharmacy: b. Location: c. Phone: 3. Insurance card on file - N/A 4. Credit card for payment - N/A NURSING PROG Observed: 06/06/2017 Status: COMPLETED Source: [place] 11:36 AM [facility] REPOSITORY HNO ID: [id number] Author: Laina KoehlerRn) TANYA Hays Service: (none) Author Type: Registered Nurse Type: Nursing Progress Note Filed: 06/06/2017 11:36 AM Note Text: Nursing Progress Note Patient Name: Delmi Phillips Patient Location: [place] [id number] discharge: pt. and family provided with information regarding home-going medications and follow-up appointments. pt. verbalized understanding of all information provided. no other complaints. will d/c home This note was completed by: Laina Hays RN CNDS Observed: 06/06/2017 Status: COMPLETED Source: [place] 11:23 AM [facility] REPOSITORY HNO ID: [id number] Author: Irineo Mcintyre MD Service: General Internal Medicine Author Type: Resident Type: Discharge Summaries Filed: 06/06/2017 2:25 PM Note Text: DISCHARGE SUMMARY PATIENT NAME: Delmi Phillips ADMISSION DATE: 06/03/2017 DISCHARGE DATE: 06/06/2017 ATTENDING PHYSICIAN: Horace Whitlock) Esha REASON FOR HOSPITALIZATION: Back Pain DIAGNOSIS: Active Problems: Cord compression (HCC) Nicotine use disorder, F17.2 Resolved Problems: * No resolved hospital problems. * Ruled Out OPERATIONS DURING HOSPITALIZATION: None PROCEDURES DURING HOSPITALIZATION: MRI Spine 06/04/2017 Cervical spine: Focus of marrow signal abnormality at C4 compatible with bony metastasis. ?No pathologic enhancement in the cervical cord. ?Severe degenerative disc disease in the lower cervical spine with Canal stenosis is worst at C5-C6. Thoracic spine: Multiple areas of abnormal marrow signal in the MID thoracic vertebrae. ?T4 is most affected which shows a 50% pathologic compression fracture with abnormal epidural metastatic soft tissue. ?This results in moderate CORD compression at this level without evidence for cord signal abnormality. No evidence of leptomeningeal disease in the thoracic CORD. Lumbar spine: Bony metastasis at the S2 segment. ?Lumbar vertebrae show no evidence of metastatic disease. ?No evidence of leptomeningeal disease. ?Severe neural foraminal stenoses at right L4-L5 and bilateral L5-S1 due to degenerative disc and facet disease. ?No pathologic enhancement involving conus medullaris or cauda equina. Incidentally noted 1.5 cm enhancing lesion in the right lobe of the liver. ?This is suspicious for an additional metastatic focus. HOSPITAL COURSE: Delmi Phillips is a 66 year old male PMH: - Chewing tobacco ? Patient was doing well until when he fell on his back. His back continued to hurt so he sought medical attention and underwent workup including a CT scan that showed pulmonary nodules, T4 fracture with metastatic lesions in the spine and a cyst at the fracture site. Patient has sent his CT to Dr. Mcarthur,?and was accepted to oncology. ? Patient says the back pain is midline and sometimes radiates to the chest and the left arm. He denies numbness, tingling, gait unsteadiness, shooting pain down the legs, decreased sensation, fever, chills, night pains or night sweats. No loss of bladder or stool control. ? Patient has family history of cancer in the family: - Brother: lung and bladder - Brother: prostate - Father: esophagus ? At the ED, patient was HDS and afebrile. CBC normal CMP: Na 131 ? Patient underwent an MRI that showed bony mets at C4, mid thoracic vertebrae and S2. Pathologic fracture at T4, moderate cord compression at this level. 1.5 cm lesion in the right lobe of the liver suspicious of mets. The patient denies any saddle anesthesia. Denies bowel or bladder issues. No radiculopathy. Only neurological complaint is some numbness and tingling over the lateral upper left arm. ? On RNF patient was HDS and afebrile. He noted severe back pain without neurologic deficit. His pain responded to tramadol and naproxin. H On 06/04/2017 patient underwent lumber spine which was concerning for multifocality spinal metastases in the CTL spine. Vertebral compression fracture noted in T4. Patient underwent Liver biopsy of lesion noted on outside CT scan on 06/06/2017. Biopsy was without complication. He was discharged with plan to follow up with Dr. Mcarthur ([facility]) with biopsy results. Patient was aware of this plan as was Dr. Mcarthur's office. Appointment was pending at the time of discharge. Patient was discharged in stable condition on 06/06/2017. LABS AND PROCEDURES PENDING AT DISCHARGE: Biopsy Results (Liver lesion Biopsy) CONSULTING TEAMS DURING HOSPITALIZATION: Ortho/Neuro Spine PATIENT CONDITION AT DISCHARGE: Stable DISCHARGE DISPOSITION: Home/Self Care INFORMATION PROVIDED TO PATIENT: (To pull info documented from the DC Instruct Orderset Complete O/S First): take medications as instructed. Follow-up with Dr. Mcarthur. DISCHARGE MEDICATION: Discharge Medication List as of 06/06/2017 11:35 AM START taking these medications traMADol (ULTRAM) 50 mg tablet Take 1 tablet by mouth every 6 hours as needed for up to 14 days. Print RX, Disp-56 tablet, R-0 Dx: 1. Cancer associated pain naproxen (NAPROSYN) 500 mg tablet Take 1 tablet by mouth twice daily with meals. Print RX, Disp-60 tablet, R-1 HYDROcodone-acetaminophen (NORCO) 5-325 mg per tablet Take 1 tablet by mouth every 8 hours as needed for up to 7 days. Print RX, Disp-10 tablet, R-0 Dx: 1. Cancer associated pain CONTINUE these medications which have NOT CHANGED acetaminophen (TYLENOL) 325 mg tablet Take 650 mg by mouth every 6 hours as needed. Historical Med albuterol HFA (VENTOLIN HFA) 90 mcg/actuation inhaler Inhale 2 Puffs as instructed every 6 hours as needed. Print RX, INHALATION, Disp-1 Inhaler, R-3 EVERY 6 HOURS NEEDED Starting 08/25/2011, Until Discontinued STOP taking these medications naproxen sodium (ALEVE) 220 mg tablet Comments: Reason for Stopping: FUTURE APPOINTMENTS: Planned FU with [facility] ([facility]) TIME OF CARE (Use first blank if not applicable): TIME OF CARE: Discharge Management: I personally spent greater than 30 minutes involved in the discharge management of this patient. SIGNATURE: Irineo Mcintyre MD PATIENT NAME: Delmi Phillips DATE: June 06, 2017 TIME: 11:24 AM PAGER/CONTACT #: [phone] BRIEF OP NOT Observed: 06/06/2017 Status: COMPLETED Source: [place] 9:50 AM [facility] [place] REPOSITORY HNO ID: [id number] Author: Tona Ferro Service: Radiology Author Type: Resident Type: Brief Op Note Filed: 06/06/2017 9:51 AM Note Text: BRIEF OPERATIVE / PROCEDURE NOTE LOG ID: [id number] Surgery/Procedure Date: 06/06/2017 Incision/Procedure Start Time: 9:38 AM Incision Close/Procedure End Time: 45 Surgeon(s)/Proceduralist(s) and Brand Leader(s): Surgeon(s) and Role: * Jaylen Corrales - Primary Tona Ferro (resident) Procedure(s): image guided targeted liver biopsy Anesthesia: Procedural Sedation Findings: multiple hepatic masses Estimated Blood Loss: 0 ml Specimens: 3 core biopsy passes Complications: None Pre-Op/Pre-Procedure Diagnosis: hepatic masses Post-Op/Post-Procedure Diagnosis: hepatic masses SIGNATURE: Tona Ferro DO PATIENT NAME: Delmi Phillips DATE: June 06, 2017 TIME: 9:50 AM PAGER/CONTACT #: US BIOPSY LIVER Observed: 06/06/2017 Status: F Source: [place] 9:50 AM [facility] REPOSITORY * * *Final Report* * * DATE OF EXAM: Jun 06 2017 9:50AM [facility] 1073 - US BIOPSY LIVER / PROCEDURE REASON: Liver mass * * * * Physician Interpretation * * * * PROCEDURE PERFORMED: ULTRASOUND GUIDED TARGETED LIVER BIOPSY ON 06/06/2017 PRE-PROCEDURE DIAGNOSIS: Multiple hepatic masses POST-PROCEDURE DIAGNOSIS: Same INDICATION FOR PROCEDURE: The patient is a 66 year old Male who presents with multiple hepatic masses.. STAFF RADIOLOGIST: Dr. Corrales KARATE BLACK BELT(S): Tona Ferro (resident) CONSENT: The risks, benefits, treatment options, potential complications and personnel involved were discussed with the patient. All questions were answered and consent was obtained. The patient indicated he was willing to proceed. The staff physician personally verified consent. TIME OUT: A time out was performed immediately prior to procedure start with the nursing, anesthesia and interventional team, correctly identifying the patient name, date of , procedure, anatomy (including marking of site and side), patient position, procedure consent form, relevant diagnostic and radiology test results, antibiotic administration, safety precautions, and procedure-specific equipment needs. RESULT: PROCEDURE: After performing the time out, a left hepatic lobe lesion was localized with ultrasound, images were obtained and archived. The epigastric region was prepped and draped in the usual sterile fashion. Under direct ultrasound guidance, 3 passes were made into the lesion using an 18 gauge cutting needle. The procedure was performed by the: attending radiologist, with an molding line assistant. The attending radiologist performed the following procedural activities: Performed core needle biopsy passes. Personally supervised the entire procedure. ANESTHESIA/SEDATION: Conscious sedation was achieved using 1 mg of versed and 50 mcg of fentanyl intravenously. Local anesthesia was achieved utilizing 10 cc 2% percent lidocaine. Vital signs were monitored by the nurse. START TIME/TIMEOUT TIME: 937 END TIME: 944 SEDATION TIME: 12 minutes. COMPLICATIONS: None SIGN-OUT DISCUSSION: Completed ESTIMATED BLOOD LOSS: None SPECIMENS: 3 core biopsy specimens were placed in formalin and sent to surgical pathology for analysis. BIOPSY DEVICE: 18 gauge Bard core biopsy needle. IMPRESSION: ULTRASOUND GUIDED TARGETED LIVER BIOPSY DESCRIBED Senior Piping Designer: MERRY Transcribe Date/Time: Jun 06 2017 9:53A Dictated by : TONA FERRO DO This examination was interpreted and the report reviewed and electronically signed by: JAYLEN CORRALES MD on Jun 06 2017 10:42AM EST [id number] PT ED Observed: 06/06/2017 Status: COMPLETED Source: [place] 9:13 AM [facility] REPOSITORY HNO ID: [id number] Author: Shawna (Rn) TANYA Mckeon Service: Nursing Author Type: Registered Nurse Type: Patient Education Filed: 06/06/2017 9:15 AM Note Text: AMBULATORY PATIENT EDUCATION NOTE TOPIC: PROCEDURE:Image guided targeted liver biopsy under moderate sedation READINESS TO LEARN COGNITIVE ABILITY: Alert and oriented MOTIVATION TO LEARN: Eager FAMILY SUPPORT: Unable to assess - Family not present INSTRUCTION PROVIDED TO: Patient PATIENT LEARNS BEST BY: Individual Instruction FACTORS AFFECTING LEARNING: None PHYSICAL LIMITATIONS AFFECTING LEARNING: None LEARNING RESPONSE DIAGNOSIS: Image guided targeted liver biopsy under moderate sedation METHOD OF INSTRUCTION: Individual instruction PATIENT / FAMILY RESPONSE: Verbalizes understanding of: PRE-PROCEDURE INSTRUCTIONS-Correct action to take to follow pre-procedure instructions FOLLOW-UP PLAN: Patient instructed to call with any further issues SUPPLEMENTAL MATERIAL: None REFERRAL (RECOMMENDATION): None Electronically Signed By: Shawna Mckeon RN In Department: [place] [address] SURGICAL PATHOLOGY Observed: 06/06/2017 Status: C Source: [place] 9:00 AM [facility] REPOSITORY ADDENDUM PRESENT Specimen originated from [facility] Specimen #: [id number] Submitting Physician: MAKI SPENCE PA-C FINAL DIAGNOSIS Liver mass, biopsy - Metastatic melanoma, involving hepatic parenchyma. - See comment. TUNG/SHANNA/megan 06/07/2017 COMMENT Biopsy consists of a fragment of hepatic parenchyma that has largely been replaced by spindle cell neoplasm with focal cells demonstrating large prominent nucleoli. Panel of immunohistochemical stains were performed on block A1 and the neoplastic cells were positive for SOX-10, HMB-45, and MITF but were negative for CK DARIANA, STAT6, and desmin. S100 demonstrates patchy positivity. The overall histologic and immunohistochemical profile is consistent with metastatic melanoma. Laboratory Developed Test (LDT) Disclaimer: Positive and negative controls stain appropriately. Performance characteristics of immunohistochemical, immunofluorescent and chromogenic in-situ hybridization tests have been determined by [facility] [place] ([facility]) in a manner consistent with CLIA requirements. One or more of these tests have not been cleared or approved by the FDA. [facility] is regulated under CLIA as qualified to perform high-complexity testing. These tests are used for clinical purposes. They should not be regarded as investigational or for research. Austin Mckinnon M.D., Ph.D. (Electronic Signature) SPECIMEN SUBMITTED A: LIVER MASS, BIOPSY ADDENDUM Date Ordered: 06/13/2017 Date Reported: 06/13/2017 Immunohistochemical stain for BRAF was negative. The NGS hotspot panel for melanoma has been ordered and the results of which will be reported separately. TUNG/megan 06/13/2017 Addendum Pathologist: Austin Mckinnon M.D., Ph.D. Electronic Signature ADDITIONAL PROCEDURE(S) MELANOMA HOTSPOT PANEL V2 Date Ordered: 06/10/2017 Date Reported: 06/22/2017 Procedure Results and Interpretation Specimen type: FFPE [id number] A1 % Malignant cells in sample:90 RESULT: BRAF A sequence change: [id number](p.Dim508rtw) was detected at approximately 59% allelic proportion (depth of coverage at change 7179) [Reference sequence: ([id number])]. NRAS - No variant detected [Reference sequence: ([id number])]. KIT - No variant detected [Reference sequence: (NM_000222.2)]. - See Comment INTERPRETATION: The BRAF p.Tiv273vyc mutation is reportedly rare relative to codon 600 mutations ([id number]) and is thought to be a hnkt-tb-hebqylvt/activating mutation (PMID: 10848447). Although BRAF V600 mutations predict responsiveness to BRAF inhibitors, less is known regarding the therapeutic relevance of this particular BRAF mutation in melanoma. Comment: Please note there is a region of low sequencing coverage within the KIT gene exon 14. Alterations present in this region may not be reliably detected. BRAF (B-Lauro cordell-oncogene, serine/threonine kinase) encodes a serine threonine kinase that is part of the mitogen-activated protein kinase (MAPK) signaling pathway. MAPK signaling promotes cellular growth and survival. Mutations in BRAF codon V600 are present in 40 60% of cutaneous melanoma patients, and result in constitutive activation of the enzyme. V600E, which describes the substitution of glutamic acid (E) for valine (V) at position 600, represents approximately 80% of V600 mutations in melanoma. BRAF V600 mutations predict responsiveness to BRAF inhibitor therapies such as vemurafinib and debrafenib. (Mireya BONILLA, et al. N Engl J Med 2012;366:707-14; Christopher A, et al. Lancet 2012;380:358- 65; Deven RD and Julia RR. Cancer Control 2014;21:221-30.) NRAS (neuroblastoma ANDRES viral (v-andres) oncogene homolog) encodes a small self-inactivating GTP-ase that serves as a signal transducer in response to stimuli from upstream cell-surface receptors. NRAS mutations are present in approximately 20% of melanomas, with the most common mutations occurring at position Q61, primarily Q61R and Q61K. NRAS mutations are mutually exclusive with BRAF mutations, and patients with NRAS mutations appear to have a worse prognosis than those with BRAF or NRAS wild-type tumors. Several clinical trials involving MEK inhibitor therapy alone or in combination with other targeted therapies are underway for patients with NRAS-mutated advanced melanoma. (Gustavo Soni. Eur J Cell Biol 2014;93:1-10; Etta XIONG, et al. Br J Cancer 2015;112:217-26; Nathan R, et al. Am Soc Clin Oncol Educ Book 2015;35:177-86.) KIT (v-kit Phillips-Kimberly 4 feline sarcoma viral oncogene homolog) is a receptor tyrosine kinase that has a role in normal melanocyte development. KIT is rarely mutated in melanoma generally, but KIT mutations can be identified in 14% of acral melanomas, 23% of mucosal melanomas, and 6 percent of melanomas associated with chronic sun damage. KIT mutations activate the MAPK and UM1Z-RKM kinase pathways, thereby enhancing cellular proliferation and survival. Most KIT mutations in melanoma are missense mutations, with a majority appearing to cluster in 4 hotspot regions, three of which are in exons 11 and 13. The most frequent substitutions occur at codons Kwl327, Qyo872, Wmg839 Snv239, and Nof425 Ldp621, with L576P and K642E accounting for approximately 28% and 13% of mutations respectively. Such class a regional truck driver mutations in KIT may predict responsiveness to imatinib and/or other selective KIT inhibitor therapies. (Can F, et al. J Clin Oncol 2013;31:3182-90; Gustavo Brasher Eur J Cell Biol 2014;93:1-10; Kelechi N, et al. Melanoma Res 2015;25:88-90.) METHOD: Following extraction of tumor DNA from microdissected FFPE, FNA, and CB specimens and library construction utilizing the custom Cancer Hotspot Panel v.1 ([employer], [place], [place]), DNA sequencing of gene mutation hotspot regions was performed on the MiSeq instrument ([employer], [place], [place]). [employer] software ([employer], [place], [place]) was used to analyze FASTQ files to identify hotspot mutations in requested genes. LIMITATIONS: Sequence changes outside the analyzed mutation hotspots, including intronic, non-coding, and splice site variants, will not be identified by this test. Insertions and deletions larger than 20 and 40 bp, respectively, may not be identified by this test. The lower limit of detection of this assay is approximately 5% allele proportion. Variants below 5% allele proportion may be reported at the discretion of the molecular pathology professional staff if the technical quality of the sequencing is sufficient at that location and the call is unequivocal. Negative results from specimens for which the percentage of tumor cells is 10% or less should be interpreted with caution. A minimum coverage depth of 100 reads is required across the entire region of interest. Any region below this minimum will not be resulted, and a list of low coverage areas will be included in the report as applicable. Fixation in neutral buffered formalin is preferred. Decalcification agents and fixation agents containing heavy metals (e.g., B5) or harsh acid or base components (e.g., Bouin's solution) can inhibit PCR reactions. ANALYTE SPECIFIC REAGENT (ASR) DISCLAIMER: This test was developed and its performance characteristics determined by the [facility] Pathology and Laboratory Medicine [place] at the [facility]. The U.S. Food and Drug Administration has not approved or cleared this test; however, FDA clearance or approval is not currently required for clinical use As reviewed by: Luana Chaudhary, Ph.D., [facility] As reviewed by: Austin Yang M.D. KESHAWN/analisa 06/20/2017 Procedure Pathologist: Austin Yang M.D.. Electronic Signature CLINICAL DATA 66 M WITH NEW PULMONARY NODULES, METASTATIC LESIONS IN SPINE, 1.5 CM RIGHT LOBE LESION SUSPICIOUS FOR METS GROSS DESCRIPTION A. Received in formalin are multiple segments of cylindrical tissue aggregating to 2.2 x 0.2 x 0.1 cm, eugene and of a soft consistency. Totally submitted in formalin in one cassette. Gross examination performed at [facility], [address] [place] [address] 06/06/2017 11:07:51 PM Date of Report: 06/09/2017 Date of Procedure: 06/06/2017 Date of Receipt: 06/06/2017 Submitted by: MAKI SPENCE PA-C Additional Physician(s): MD JAYLEN FLOWERS MD Location: H81 Diagnostic interpretation performed at [facility], [address] [place] [address]. CONSULT PROG Observed: 06/06/2017 Status: COMPLETED Source: [place] 8:40 AM [facility] REPOSITORY HNO ID: [id number] Author: Aroldo Downs Service: Neurosurgery Author Type: Physician Type: Consult Progress Note Filed: 06/06/2017 8:47 AM Note Text: HANDPE noted. 66 yo male with know vertebral body lesion at T4. He has moderate encroachment of the epidural space at this level but is neurologically intact. He also has cervical spondylosis with stenosis at the C5-6 level. No indication for surgery at this time. Will await biopsy results before determining need for surgery vs XRT for T4 lesion. Aroldo Downs MD PROGRESS Observed: 06/06/2017 Status: COMPLETED Source: [place] 6:53 AM [facility] REPOSITORY HNO ID: [id number] Author: Sara Romero Service: Orthopaedic Surgery Author Type: Resident Type: Progress Notes Filed: 06/06/2017 6:54 AM Note Text: ORTHOPAEDIC SURGERY PROGRESS NOTE PATIENT NAME: Delmi Phillips A/P: 66M w back pain starting in February after a fall. Radiographic workup in the first week of May showed compression fracture. MRI was performed on 06/01 and due to concerning findings for pathologic fx and transferred to [facility]. Pain both upright and supine. Not worse in the morning or evening. Positive hematuria. No weakness, numbness or tingling. No bowel or bladder symptoms. No thoracic chest pain. MRI demonstrates bony involvement in the upper and mid cervical spine as well as S2. On CT read available (not physical images), there are multiple lung nodules and a large liver nodule but nothing in the kidney or bladders. On exam, intact without hyperreflexia or ataxia. Pain likely mechanical in nature. No signs or symptoms of thoracic myelopathy at this time. No surgical intervention planned at this point IR consult for biopsy Standing upright thoracic xrays Onc/Radonc consults S: Doing well, pain well controlled, denies n/v/cp/sob VITALS: 06/05/17 0600 06/05/17 1315 06/05/17 1820 06/05/17 2154 BP: 158/88 137/80 137/78 138/77 Pulse: 80 78 80 73 Resp: Temp: 36.7 ?C (98 ?F) 36.6 ?C (97.8 ?F) 36.7 ?C (98 ?F) 36.5 ?C (97.7 ?F) TempSrc: Oral Oral Oral Oral SpO2: 94% 97% 96% 96% Weight: 84.1 kg (185 lb 6.5 oz) Height: Intake/Output Summary (Last 24 hours) at 06/06/17 0653 Last data filed at 06/06/17 0200 Gross per 24 hour Intake 840 ml Output 1 ml Net 839 ml Physical Exam: * Gen: awake, alert, converses appropriately, NAD * Resp: Unlabored on RA, no wheeze * Focused MSK L UE: D 5/5 B 5/5 T 5/5 WE 5/5 WF 5/5 FF 5/5 IO 5/5, SILT C5-T1 R UE: D 5/5 B 5/5 T 5/5 WE 5/5 WF 5/5 FF 5/5 IO 5/5, SILT C5-T1 L LE: HF 5/5 KE 5/5 DF 5/5 EHL 5/5 PF 5/5, SILT L1-S1 R LE: HF 5/5 KE 5/5 DF 5/5 EHL 5/5 PF 5/5, SILT L1-S1 Labs: CBC: Recent Labs 06/06/17 0420 06/05/17 0539 06/04/17 0627 06/03/17 2142 WBC 8.83 8.35 6.28 8.04 HB 11.8* 12.8* 12.5* 13.2 HCT 36.7* 38.9* 39.2 40.6 PLT 298 337 281 263 MCV 89.3 88.6 88.3 89.8 RDWCV 13.8 13.4 13.8 13.6 NEUTP 68.4 79.9 72.4 65.1 ABSNEUT 6.05 6.67 4.55 5.21 LYMPHP 20.2 12.5 17.4 21.0 MONOP 10.0 7.5 7.5 11.8 EODINP 0.9 0.0 2.2 1.7 COAG: Recent Labs 06/06/17 0420 06/04/17 0628 APTT 26.2 28.2 INR 1.0 1.0 BMP: Recent Labs 06/06/17 04206/05/17 0539 06/04/17 0627 06/03/17 2142 GLUC 92 115* 96 91 NA 135* 131* 132* 131* K 4.6 4.1 4.5 3.9 CHLOR 100 94* 97 95* CO2 25 22 22 22 ANION 10 15 13 14 BUN 12 10 5* 5* CREAT 0.94 0.75 0.72* 0.67* CHEM: Recent Labs 06/06/1741906/05/17 0539 06/04/1762606/03/17 2142 ALB -- -- 3.5* -- TPROT -- -- 7.0 -- CA 8.5 9.0 8.9 8.5 URINALYSIS:No results for input(s): PH, SPGR, UGLUC, UBILI, UKET, UHB, UPROT, UROBIL, UWBC, SSA in the last 168 hours. Invalid input(s): ERICA Romero MD Orthopaedic Surgery PGY-1 Pager:[phone] (Page 2BONE after 6pm and on wknds) PROGRESS Observed: 06/06/2017 Status: COMPLETED Source: [place] 6:18 AM [facility] REPOSITORY HNO ID: [id number] Author: Horace Whitlock) Esha Service: General Internal Medicine Author Type: Physician Type: Progress Notes Filed: 06/06/2017 1:52 PM Note Text: EDMOND Puckett PROGRESS NOTE For questions regarding this patient today please page [phone] After 5 pm on weekdays and 3pm on weekends and holidays please page human resources operations manager Edmond?pager [phone] PATIENT NAME: Delmi Phillips LENGTH OF STAY: 2 [address]; AGE: 5 1950; 66 year old ADMITTING PHYSICIAN: Horace Melton DATE OF ADMISSION: 06/03/2017 7:43 PM SERVICE - Edmond Puckett SERVICE DATE: 06/06/2017 SERVICE TIME: 6:19 AM PLAN FOR TODAY (see below for more details): - IR for liver biopsy (NPO) - Pain control with tramadol, tylenol, and naproxen - Neurosurgery following - DC Home Subjective INTERVAL HISTORY: PSA elevated to 14.52 No acute events overnight. Patient denies SOB, chest pain, abdominal pain, nausea, and vomiting. Back pain controlled MEDICATIONS: Current hospital medications: iv contrast (radiology procedure) INTRAVENOUS DIRECTED PRN 0.9% NaCl 3-5 mL 3-5 mL INTRAVENOUS q 12 H 0.9% NaCl 2-10 mL 2-10 mL INTRAVENOUS q 12 H docusate sodium 100 mg cap(s) (COLACE) 100 mg ORAL BID PRN acetaminophen 650 mg tab(s) (TYLENOL) 650 mg ORAL q 6 H PRN enoxaparin 40 mg injection (LOVENOX) 40 mg SUBCUTANEOUS q 24 HR naproxen 500 mg tab(s) (NAPROSYN) 500 mg ORAL DAILY PRN traMADol 50 mg tab(s) (ULTRAM) 50 mg ORAL q 6 H PRN Objective PHYSICAL EXAM: 06/05/17 0600 06/05/17 1315 06/05/17 1820 06/05/17 2154 BP: 158/88 137/80 137/78 138/77 Pulse: 80 78 80 73 Resp: Temp: 36.7 ?C (98 ?F) 36.6 ?C (97.8 ?F) 36.7 ?C (98 ?F) 36.5 ?C (97.7 ?F) TempSrc: Oral Oral Oral Oral SpO2: 94% 97% 96% 96% Weight: 84.1 kg (185 lb 6.5 oz) Height: Body mass index is 26.6 kg/(m2). General: Pt is laying in bed in no acute distress, speaking in full coherent sentences, nondiaphoretic, cooperative HEENT: anicteric sclera, EOMI, oropharynx clear, moist mucous membranes Cardiac: Regular Rhythm, S1 and S2 without appreciation of murmurs, no rubs/gallops/clicks Lungs: clear to auscultation bilaterally with good respiratory effort Abdomen: soft, non-tender, non-distended, active bowel sounds Extremities: warm, no edema, Radial pulses 2+ bilaterally Neurologic: AANDOx3, Motor/sensation grossly intact x 4 extremities DATA: Recent Labs 06/06/17 0420 06/05/17 0539 06/04/17 0628 06/04/17 0627 06/03/17 2142 WBC 8.83 8.35 -- 6.28 8.04 HB 11.8* 12.8* -- 12.5* 13.2 HCT 36.7* 38.9* -- 39.2 40.6 PLT 298 337 -- 281 263 NA -- 131* -- 132* 131* K -- 4.1 -- 4.5 3.9 CHLOR -- 94* -- 97 95* CO2 -- 22 -- 22 22 CREAT -- 0.75 -- 0.72* 0.67* BUN -- 10 -- 5* 5* GLUC -- 115* -- 96 91 TPROT -- -- -- 7.0 -- ALB -- -- -- 3.5* -- CA -- 9.0 -- 8.9 8.5 ALKPHOS -- -- -- 89 -- TBILI -- -- -- 0.6 -- AST -- -- -- 24 -- ALT -- -- -- 20 -- CRP -- -- -- 0.8 -- APTT 26.2 -- 28.2 -- -- INR 1.0 -- 1.0 -- -- Reviewed recent labs and imaging MRI Spine 06/04/2017 Cervical spine: Focus of marrow signal abnormality at C4 compatible with bony metastasis. ?No pathologic enhancement in the cervical cord. ?Severe degenerative disc disease in the lower cervical spine with Canal stenosis is worst at C5-C6. Thoracic spine: Multiple areas of abnormal marrow signal in the MID thoracic vertebrae. ?T4 is most affected which shows a 50% pathologic compression fracture with abnormal epidural metastatic soft tissue. ?This results in moderate CORD compression at this level without evidence for cord signal abnormality. No evidence of leptomeningeal disease in the thoracic CORD. Lumbar spine: Bony metastasis at the S2 segment. ?Lumbar vertebrae show no evidence of metastatic disease. ?No evidence of leptomeningeal disease. ?Severe neural foraminal stenoses at right L4-L5 and bilateral L5-S1 due to degenerative disc and facet disease. ?No pathologic enhancement involving conus medullaris or cauda equina. Incidentally noted 1.5 cm enhancing lesion in the right lobe of the liver. ?This is suspicious for an additional metastatic focus. Assessment/Plan 66M previously healthy presents with back pain and new bone mets on MRI with evidence of cord compression . Active Hospital Problems Diagnosis - Cord compression (HCC) - Found on MRI at level T4 - Normal neurological exam - CBC,CMP?normal - No previous history of cancer - Underwent recent CT imaging that showed lung nodules - Given one dose of dexa - Seen by Spine surgery, no acute surgical intervention needed Plan: . Analgesics to control pain . Appreciate Spine Surgery assessing patient . Bx from liver vs prostate - Nicotine use disorder, F17.2 Diet: NPO GI PPx: None VTE PPx: Lovenox 40 mg SC once daily, pneumatic compression, encourage ambulation Dispo: Home Code status: Full Plan is not finalized until staffed by attending physician. SIGNATURE: Irineo Mcintyre MD PATIENT NAME: Delmi Phillips DATE: June 06, 2017 TIME: 6:19 AM PAGER: [phone] Please see discharge summary, as pt is discharged today. Dr. Horace CHACKO MD June 06, 2017 1:52 PM CBC AND DIFFERENTIAL Collected: 06/06/2017 Status: F Source: [place] 4:20 AM [facility] REPOSITORY TYPE CODE TESTS RESULT OUT OF REFERENCE UNITS RANGE LAB WBC 3.70-11.00 k/uL WBC 8.83 LAB RBC 4.20-6.00 m/uL Low RBC 4.11 LAB HGB 13.0-17.0 g/dL Low Hemoglobin 11.8 LAB HCT 39.0-51.0 % Low Hematocrit 36.7 LAB MCV 80.0-100.0 fL MCV 89.3 LAB MCH 26.0-34.0 pG MCH 28.7 LAB MCHC 30.5-36.0 g/dL MCHC 32.2 LAB RDWCV 11.5-15.0 % RDW-CV 13.8 LAB PLTCT 150-400 k/uL Platelet Count 298 LAB MPV 9.0-12.7 fL MPV 9.7 LAB ANEUT % Neut% 68.4 LAB AANEUT 1.45-7.50 k/uL Abs Neut 6.05 LAB ALYMP % Lymph% 20.2 LAB AALYMP 1.00-4.00 k/uL Abs Lymph 1.78 LAB AMONO % [place]% 10.0 LAB AAMONO <0.87 k/uL Abs [place] High 0.88 LAB AEOS % Eosin% 0.9 LAB AAEOS <0.46 k/uL Abs Eosin 0.08 LAB ABASO % Baso% 0.5 LAB AABASO <0.11 k/uL Abs Baso 0.04 LAB AUNRBC 0 /100 WBC NRBCs 0.0 LAB ABNRBC <0.01 k/uL Absolute nRBC <0.01 LAB DTYP DTYPE Auto Diff Performed By: #### CBCDIF, PT, PTT, BMP #### [facility] [address] [place], [place] [address] PROTIME Collected: 06/06/2017 Status: F Source: [place] 4:20 AM [facility] [place] REPOSITORY TYPE CODE TESTS RESULT OUT OF RANGE REFERENCE UNITS LAB PSEC 9.7-13.0 sec PT Sec 10.2 LAB INR 0.9-1.3 PT INR 1.0 Result Comment: Vitamin K Antagonist (VKA) Therapeutic Range: INR 2 to 3 (Target INR of 2.5) Note: For patients treated with VKA drugs, such as warfarin, the [place] [employer] 2012 Guideline recommends a therapeutic INR range of 2 to 3 (target INR of 2.5). This recommendation includes high-risk patients with antiphospholipid syndrome with previous arterial or venous thromboembolism, current-generation mechanical or bioprosthetic aortic heart valve replacement. Note: Patients with mechanical aortic valve replacement and additional risk factors for thromboembolic events (atrial fibrillation, previous thromboembolism, LV dysfunction, hypercoagulable conditions) or an older generation mechanical AVR (i.e., ball in-Cage) or any mechanical MVR should have a INR therapeutic range of 2.5 to 3.5 (target INR of 3). Sisi FUNK, et al. Chest 2012, 141:7S-47S Blanca MEADOWS, et al. JAC 2017, 70: 252-289 Performed By: #### CBCDIF, PT, PTT, BMP #### [facility] [address] [place], [place] [address] APTT Collected: 06/06/2017 Status: F Source: [place] 4:20 AM [facility] REPOSITORY TYPE CODE TESTS RESULT OUT OF RANGE REFERENCE UNITS LAB APTT 23.0-32.4 sec APTT 26.2 Result Comment: Unfractionated Heparin Therapeutic Ranges: Standard Heparin Nomogram: 53 to 78 seconds (anti-Xa level of 0.3 to 0.7 U/ml) Low Dose/ACS Nomogram: 49 to 67 seconds (anti-Xa level of 0.2 to 0.5 U/ml) Stroke Treatment Nomogram: 49 to 67 seconds (anti-Xa level of 0.2 to 0.5 U/ml) Note: The APTT therapeutic range has been determined for the current lot of laboratory APTT reagent in use throughout the [facility]. Performed By: #### CBCDIF, PT, PTT, BMP #### [facility] [address] [place], [place] [address] BASIC METABOLIC PANL Collected: 06/06/2017 Status: F Source: [place] 4:20 [facility] REPOSITORY TYPE CODE TESTS RESULT OUT OF REFERENCE UNITS RANGE LAB GLU 74-99 mg/dL Glucose 92 Result Comment: The [place] [employer] (ADA) provides guidance for cutoff values for fasting glucose and random glucose. The ADA defines fasting as no caloric intake for at least 8 hours. Fas ting plasma glucose results between 100 to 125 mg/dL indicate increased risk for diabetes (prediabetes). Fasting plasma glucose results greater than or equal to 126 mg/dL meet the criteria for diagnosis of diabetes. In the absence of unequivocal hyperglycemia, results should be confirmed by repeat testing. In a patient with classic symptoms of hyperglycemia or hyperglycemic crisis, random plasma glucose results greater than or equal to 200 mg/dL meet the criteria for diagnosis of diabetes. Reference: Standards of Medical Care in Diabetes 2016, [place] [employer] Association. Diabetes Care. 2016.39(Suppl 1). LAB BUN 9-24 mg/dL BUN 12 LAB CRET 0.73-1.22 mg/dL Creatinine 0.94 LAB NA 136-144 mmol/L Sodium Low 135 LAB K 3.7-5.1 mmol/L Potassium 4.6 LAB CL 97-105 mmol/L Chloride 100 LAB CO2 22-30 mmol/L CO2 25 LAB AGAP 9-18 mmol/L Anion Gap 10 LAB CA 8.5-10.2 mg/dL Calcium, Total 8.5 LAB GFRAA eGFR- Amer. >60 LAB GFRNAA . eGFR-All Other Races >60 Result Comment: eGFR (Estimated GFR) Units of measure: mL/min/1.73 meters squared eGFR is derived from the reexpressed MDRD Study equation using the following parameters: serum creatinine, age, gender and race. The creatinine assay has been calibrated to be traceable to IDMS. An eGFR <60 mL/min/1.73m2 for >3 months is consistent with chronic kidney disease. Refer to KDOQI guidelines for clinical interpretation. In patients with unstable renal function, e.g. those with acute kidney injury, the eGFR may not accurately reflect actual GFR. Performed By: #### CBCDIF, PT, PTT, BMP #### [facility] [address] [place] [address] PROGRESS Observed: 06/05/2017 Status: COMPLETED Source: [place] 8:31 AM [facility] REPOSITORY HNO ID: [id number] Author: Horace Whitlock) Esha Service: General Internal Medicine Author Type: Physician Type: Progress Notes Filed: 06/05/2017 12:26 PM Note Text: Internal Medicine Progress Note PRIMARY TEAM: Edmond Puckett Weekdays 7 am to 5 pm/Weekend 7 am to 3 pm: Page [phone] (Abushamma) Weekdays 5 pm to 7 am/Weekend 3 pm to 7 am: Particle Board Supervisor Pager ([phone]) SERVICE DATE: 06/05/2017 SERVICE TIME: 8:32 AM Plan for the Day: - MRI prostate w/wo contrast to assess for presence of possible CA - Bx either from prostate if there is a lesion or liver likely tomorrow Subjective/Interval HPI: - No acute events overnight, VSS - ESR/CRP wnl, PSA elevated with a low free PSA, suggestive of prostate CA as primary - Patient has no active complaints, would like to return home quickly Assessment AND Plan: 66M previously healthy presents with back pain and new bone mets on MRI with evidence of cord compression . ? #Cord compression - Found on MRI at level T4 - Normal neurological exam - CBC,CMP normal - No previous history of cancer - Underwent recent CT imaging that showed lung nodules - Given one dose of dexa - Seen by Spine surgery, no acute surgical intervention needed Plan: . Analgesics to control pain . Appreciate Spine Surgery assessing patient . Bx from liver vs prostate ? MAINTENANCE: # Diet - Regular # VTE PPx - SubQ enoxaparin qd # GI PPx - None # IVF's - None # Dispo Planning - Home, no skilled needs anticipated # Code Status - Full Vital Signs BP 158/88 Pulse 80 Temp 36.7 ?C (98 ?F) (Oral) Resp 18 Ht 177.8 cm (5' 10) Wt 84.1 kg (185 lb 6.5 oz) SpO2 94% BMI 26.6 kg/m2 PHYSICAL EXAMINATION: General: Pt is laying in bed in no acute distress, speaking in full coherent sentences, nondiaphoretic, cooperative HEENT: anicteric sclera, EOMI, oropharynx clear, moist mucous membranes Cardiac: Regular Rhythm, S1 and S2 without appreciation of murmurs, no rubs/gallops/clicks Lungs: clear to auscultation bilaterally with good respiratory effort Abdomen: soft, non-tender, non-distended, active bowel sounds Extremities: warm, no edema, Radial pulses 2+ bilaterally Neurologic: AANDOx3, Motor/sensation grossly intact x 4 extremities Laboratory Values CBC: Recent Labs 06/05/17 0539 06/04/17 0606/03/17 2142 WBC 8.35 6.28 8.04 HB 12.8* 12.5* 13.2 PLT 337 281 263 MCV 88.6 88.3 89.8 RDWCV 13.4 13.8 13.6 NEUTP 79.9 72.4 65.1 ABSNEUT 6.67 4.55 5.21 LYMPHP 12.5 17.4 21.0 MONOP 7.5 7.5 11.8 EODINP 0.0 2.2 1.7 BMP: Recent Labs 06/05/17 0539 06/04/17 0627 06/03/17 2142 GLUC 115* 96 91 NA 131* 132* 131* K 4.1 4.5 3.9 CHLOR 94* 97 95* CO2 22 22 22 ANION 15 13 14 BUN 10 5* 5* CREAT 0.75 0.72* 0.67* CHEM: Recent Labs 06/05/17 0539 06/04/17 0627 06/03/17 2142 ALB -- 3.5* -- TPROT -- 7.0 -- CA 9.0 8.9 8.5 Intake/Output Intake/Output Summary (Last 24 hours) at 06/05/17 0832 Last data filed at 06/05/17 0600 Gross per 24 hour Intake 640 ml Output 3 ml Net 637 ml ALLERGIES: ALLERGIES Allergen Reactions - Sulfa (Sulfonamide * Rash - Tizanidine GI Upset MEDICATIONS: Current hospital medications: 0.9% NaCl 3-5 mL 3-5 mL INTRAVENOUS q 12 H 0.9% NaCl 2-10 mL 2-10 mL INTRAVENOUS q 12 H docusate sodium 100 mg cap(s) (COLACE) 100 mg ORAL BID PRN acetaminophen 650 mg tab(s) (TYLENOL) 650 mg ORAL q 6 H PRN enoxaparin 40 mg injection (LOVENOX) 40 mg SUBCUTANEOUS q 24 HR naproxen 500 mg tab(s) (NAPROSYN) 500 mg ORAL DAILY PRN traMADol 50 mg tab(s) (ULTRAM) 50 mg ORAL q 6 H PRN SIGNATURE: Toya Barnett MD - Internal Medicine PGY- II PATIENT NAME: Delmi Phillips DATE: June 05, 2017 TIME: 8:32 AM Pager: [phone] Attending Note: I personally interviewed and examined Mr Phillips. and confirmed the padgett elements of the history and physical exam documented by Dr Barnett. the resident. Patient gets occasional back pain which is relieved with current pain regimen After discussing with the urologist on joey and oncologist think the best way to approach the tissue diagnosis would be having a a liver biopsy to start with him. If the tissues inaccessible then the next step would be and the spinal lesion Though PSA is elevated not high enough to cause metastatic lesions I have reviewed her note above and endorse the findings and plan. A portion of this document has been created with the use of voice-recognition technology. It may contain inaccuracies such as: misspellings or inaccurate syntax or word sense that escaped review. ? Dr. Horace CHACKO MD June 05, 2017 12:26 PM BASIC METABOLIC PANL Collected: 06/05/2017 Status: F Source: [place] 5:39 AM [facility] REPOSITORY TYPE CODE TESTS RESULT OUT OF REFERENCE UNITS RANGE LAB GLU 74-99 mg/dL High Glucose 115 Result Comment: The [place] [employer] Association (ADA) provides guidance for cutoff values for fasting glucose and random glucose. The ADA defines fasting as no caloric intake for at least 8 hours. Fas ting plasma glucose results between 100 to 125 mg/dL indicate increased risk for diabetes (prediabetes). Fasting plasma glucose results greater than or equal to 126 mg/dL meet the criteria for diagnosis of diabetes. In the absence of unequivocal hyperglycemia, results should be confirmed by repeat testing. In a patient with classic symptoms of hyperglycemia or hyperglycemic crisis, random plasma glucose results greater than or equal to 200 mg/dL meet the criteria for diagnosis of diabetes. Reference: Standards of Medical Care in Diabetes 2016, [place] [employer]. Diabetes Care. 2016.39(Suppl 1). LAB BUN 9-24 mg/dL BUN 10 LAB CRET 0.73-1.22 mg/dL Creatinine 0.75 LAB NA 136-144 mmol/L Sodium Low 131 LAB K 3.7-5.1 mmol/L Potassium 4.1 LAB CL 97-105 mmol/L Chloride Low 94 LAB CO2 22-30 mmol/L CO2 22 LAB AGAP 9-18 mmol/L Anion Gap 15 LAB CA 8.5-10.2 mg/dL Calcium, Total 9.0 LAB GFRAA eGFR- Amer. >60 LAB GFRNAA . eGFR-All Other Races >60 Result Comment: eGFR (Estimated GFR) Units of measure: mL/min/1.73 meters squared eGFR is derived from the reexpressed MDRD Study equation using the following parameters: serum creatinine, age, gender and race. The creatinine assay has been calibrated to be traceable to IDMS. An eGFR <60 mL/min/1.73m2 for >3 months is consistent with chronic kidney disease. Refer to KDOQI guidelines for clinical interpretation. In patients with unstable renal function, e.g. those with acute kidney injury, the eGFR may not accurately reflect actual GFR. Performed By: #### BMP, CBCDIF #### [facility] [address] [place], [place] [address] CBC AND DIFFERENTIAL Collected: 06/05/2017 Status: F Source: [place] 5:39 AM [facility] REPOSITORY TYPE CODE TESTS RESULT OUT OF REFERENCE UNITS RANGE LAB WBC 3.70-11.00 k/uL WBC 8.35 LAB RBC 4.20-6.00 m/uL RBC 4.39 LAB HGB 13.0-17.0 g/dL Low Hemoglobin 12.8 LAB HCT 39.0-51.0 % Low Hematocrit 38.9 LAB MCV 80.0-100.0 fL MCV 88.6 LAB MCH 26.0-34.0 pG MCH 29.2 LAB MCHC 30.5-36.0 g/dL MCHC 32.9 LAB RDWCV 11.5-15.0 % RDW-CV 13.4 LAB PLTCT 150-400 k/uL Platelet Count 337 LAB MPV 9.0-12.7 fL MPV 10.1 LAB ANEUT % Neut% 79.9 LAB AANEUT 1.45-7.50 k/uL Abs Neut 6.67 LAB ALYMP % Lymph% 12.5 LAB AALYMP 1.00-4.00 k/uL Abs Lymph 1.04 LAB AMONO % [place]% 7.5 LAB AAMONO <0.87 k/uL Abs [place] 0.63 LAB AEOS % Eosin% 0.0 LAB AAEOS <0.46 k/uL Abs Eosin <0.03 LAB ABASO % Baso% 0.1 LAB AABASO <0.11 k/uL Abs Baso <0.03 LAB AUNRBC 0 /100 WBC NRBCs 0.0 LAB ABNRBC <0.01 k/uL Absolute nRBC <0.01 LAB DTYP DTYPE Auto Diff Performed By: #### BMP, CBCDIF #### [facility] [address] [place], [place] [address] PSA, FREE Collected: 06/04/2017 Status: F Source: [place] 2:32 PM [facility] REPOSITORY TYPE CODE TESTS RESULT OUT OF REFERENCE UNITS RANGE LAB PSA 0.00-2.59 ng/mL PSA, High Diagnostic 14.52 Result Comment: Total PSA test methodology used is the Electrochemiluminescence Immunoassay. For an individual patient, the significance of a PSA level should be interpreted in a broad clinical context, including age, race, family history, digital rectal exam, prostate size, results of prior te sting (prostate biopsy, free PSA, PCA3), and use of 5-alpha reductase inhibitors. Considering the high incidence of asymptomatic cancer in the general population that may not pose an ultimate risk to a patient, the decision to recommend urological evaluation or prostate biopsy should be individualized after consideration of all these factors. REFERENCE: Malka Mullen M.D., M.P.H., Jean Carlos Martines M.D., Ph.D., Luis Angel Cunha M.D., Adilene Murray, M.P.H., Kika Hollingsworth Sc.D. Effect of Verification Bias on Screening for Prostate Cancer by Measurement of Prostatic Specific Antigen. N Engl J Med 2003,349:335-42. LAB PSAPER % PSA, Percent Free DO NOT 7 ORDER FOR SUPERIOR ONLY Result Comment: Less than 11% suggestive of prostate cancer. Greater than 23% suggestive of benign condition. Performed By: #### PSATF #### [facility] [address] [place], [place] [address] CONFIRM BLOOD TYPE Collected: 06/04/2017 Status: F Source: [place] 9:03 AM [facility] REPOSITORY TYPE CODE TESTS RESULT OUT OF REFERENCE UNITS RANGE LAB %ABR O ABO/RH(D) NEGATIVE Performed By: #### CONABO #### [facility] [address] [place], [place] [address] PROTIME Collected: 06/04/2017 Status: F Source: [place] 6:28 AM [facility] REPOSITORY TYPE CODE TESTS RESULT OUT OF RANGE REFERENCE UNITS LAB PSEC 9.7-13.0 sec PT Sec 10.4 LAB INR 0.9-1.3 PT INR 1.0 Result Comment: Vitamin K Antagonist (VKA) Therapeutic Range: INR 2 to 3 (Target INR of 2.5) Note: For patients treated with VKA drugs, such as warfarin, the [place] [employer] 2012 Guideline recommends a therapeutic INR range of 2 to 3 (target INR of 2.5). This recommendation includes high-risk patients with antiphospholipid syndrome with previous arterial or venous thromboembolism, current-generation mechanical or bioprosthetic aortic heart valve replacement. Note: Patients with mechanical aortic valve replacement and additional risk factors for thromboembolic events (atrial fibrillation, previous thromboembolism, LV dysfunction, hypercoagulable conditions) or an older generation mechanical AVR (i.e., ball in-Cage) or any mechanical MVR should have a INR therapeutic range of 2.5 to 3.5 (target INR of 3). Sisi GH, et al. Chest 2012, 141:7S-47S Blanca MEADOWS et al. [facility] 2017, 70: 252-289 Performed By: #### PT, PTT #### [facility] [address] [place], [place] [address] APTT Collected: 06/04/2017 Status: F Source: [place] 6:28 AM [facility] REPOSITORY TYPE CODE TESTS RESULT OUT OF RANGE REFERENCE UNITS LAB APTT 23.0-32.4 sec APTT 28.2 Result Comment: Unfractionated Heparin Therapeutic Ranges: Standard Heparin Nomogram: 53 to 78 seconds (anti-Xa level of 0.3 to 0.7 U/ml) Low Dose/ACS Nomogram: 49 to 67 seconds (anti-Xa level of 0.2 to 0.5 U/ml) Stroke Treatment Nomogram: 49 to 67 seconds (anti-Xa level of 0.2 to 0.5 U/ml) Note: The APTT therapeutic range has been determined for the current lot of laboratory APTT reagent in use throughout the [facility]. Performed By: #### PT, PTT #### [facility] [address] [place], [place] [address] TYPE AND SCREEN Collected: 06/04/2017 Status: F Source: [place] 6:28 AM [facility] REPOSITORY TYPE CODE TESTS RESULT OUT OF REFERENCE UNITS RANGE LAB %ABR O ABO/RH(D) NEGATIVE LAB % Antibody NEG Screen Performed By: #### TSCR #### [facility] [address] [place], [place] [address] CBC AND DIFFERENTIAL Collected: 06/04/2017 Status: F Source: [place] 6:27 AM [facility] REPOSITORY TYPE CODE TESTS RESULT OUT OF REFERENCE UNITS RANGE LAB WBC 3.70-11.00 k/uL WBC 6.28 LAB RBC 4.20-6.00 m/uL RBC 4.44 LAB HGB 13.0-17.0 g/dL Low Hemoglobin 12.5 LAB HCT 39.0-51.0 % Hematocrit 39.2 LAB MCV 80.0-100.0 fL MCV 88.3 LAB MCH 26.0-34.0 pG MCH 28.2 LAB MCHC 30.5-36.0 g/dL MCHC 31.9 LAB RDWCV 11.5-15.0 % RDW-CV 13.8 LAB PLTCT 150-400 k/uL Platelet Count 281 LAB MPV 9.0-12.7 fL MPV 9.5 LAB ANEUT % Neut% 72.4 LAB AANEUT 1.45-7.50 k/uL Abs Neut 4.55 LAB ALYMP % Lymph% 17.4 LAB AALYMP 1.00-4.00 k/uL Abs Lymph 1.09 LAB AMONO % [place]% 7.5 LAB AAMONO <0.87 k/uL Abs [place] 0.47 LAB AEOS % Eosin% 2.2 LAB AAEOS <0.46 k/uL Abs Eosin 0.14 LAB ABASO % Baso% 0.5 LAB AABASO <0.11 k/uL Abs Baso 0.03 LAB AUNRBC 0 /100 WBC NRBCs 0.0 LAB ABNRBC <0.01 k/uL Absolute nRBC <0.01 LAB DTYP DTYPE Auto Diff Performed By: #### CBCDIF, CMP #### [facility] [address] [place], [place] [address] COMP METABOLIC PANEL Collected: 06/04/2017 Status: F Source: [place] 6:27 AM [facility] REPOSITORY TYPE CODE TESTS RESULT OUT OF REFERENCE UNITS RANGE LAB TP 6.3-8.0 g/dL Protein, Total 7.0 LAB ALB 3.9-4.9 g/dL Low Albumin 3.5 LAB CA 8.5-10.2 mg/dL Calcium, Total 8.9 LAB TBIL 0.2-1.3 mg/dL Bilirubin, Total 0.6 LAB ALKP 36-108 U/L Alkaline Phosphatase 89 LAB AST 14-40 U/L AST 24 LAB GLU 74-99 mg/dL Glucose 96 Result Comment: The [place] Diabetes Association (ADA) provides guidance for cutoff values for fasting glucose and random glucose. The ADA defines fasting as no caloric intake for at least 8 hours. Fas ting plasma glucose results between 100 to 125 mg/dL indicate increased risk for diabetes (prediabetes). Fasting plasma glucose results greater than or equal to 126 mg/dL meet the criteria for diagnosis of diabetes. In the absence of unequivocal hyperglycemia, results should be confirmed by repeat testing. In a patient with classic symptoms of hyperglycemia or hyperglycemic crisis, random plasma glucose results greater than or equal to 200 mg/dL meet the criteria for diagnosis of diabetes. Reference: Standards of Medical Care in Diabetes 2016, [place] [employer]. Diabetes Care. 2016.39(Suppl 1). LAB BUN 9-24 mg/dL BUN Low 5 LAB CRET 0.73-1.22 mg/dL Creatinine Low 0.72 LAB NA 136-144 mmol/L Sodium Low 132 LAB K 3.7-5.1 mmol/L Potassium 4.5 LAB CL 97-105 mmol/L Chloride 97 LAB CO2 22-30 mmol/L CO2 22 LAB AGAP 9-18 mmol/L Anion Gap 13 LAB ALT 10-54 U/L ALT 20 LAB GFRAA eGFR- Amer. >60 LAB GFRNAA . eGFR-All Other Races >60 Result Comment: eGFR (Estimated GFR) Units of measure: mL/min/1.73 meters squared eGFR is derived from the reexpressed MDRD Study equation using the following parameters: serum creatinine, age, gender and race. The creatinine assay has been calibrated to be traceable to IDMS. An eGFR <60 mL/min/1.73m2 for >3 months is consistent with chronic kidney disease. Refer to KDOQI guidelines for clinical interpretation. In patients with unstable renal function, e.g. those with acute kidney injury, the eGFR may not accurately reflect actual GFR. Performed By: #### CBCDIF, CMP #### [facility] [address] [place], [place] [address] C-REACTIVE PROTEIN Collected: 06/04/2017 Status: F Source: [place] 6:27 AM [facility] REPOSITORY TYPE CODE TESTS RESULT OUT OF REFERENCE UNITS RANGE LAB CRP <0.9 mg/dL C-Reactive 0.8 Protein Performed By: #### CRP, WSR #### [facility] [address] [place], [place] [address] SED RATE WESTERGREN Collected: 06/04/2017 Status: F Source: [place] 6:27 AM [facility] REPOSITORY TYPE CODE TESTS RESULT OUT OF REFERENCE UNITS RANGE LAB WSR 0-15 mm/hr Sed Rate Westergren 2 Performed By: #### CRP, WSR #### [facility] [address] [place], [place] [address] CONSULT Observed: 06/04/2017 Status: COMPLETED Source: [place] 3:48 AM [facility] REPOSITORY HNO ID: [id number] Author: Alonzo Conway (Fel) Service: Orthopaedic Surgery Author Type: Fellow Type: Consults Filed: 06/04/2017 8:20 AM Note Text: ORTHOPAEDIC CONSULT HISTORY AND PHYSICAL EXAM ASSESSMENT Delmi Phillips is a 66 year old y/o male presents back pain, vertebral compression fractures causing radiographic evidence of cord compression, 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 He is fully neurologically intact without long track signs. PLAN: 1. No acute orthopedic surgical intervention 2. Please obtain outside records and continue to workup his metastatic disease. 3. Spine team will discuss potential for operative intervention during this admission and follow daily. 4. Disposition: RNF 5. Discussed with spine fellow. HISTORY OF PRESENT ILLNESS This is a 66 year old male with no significant PMHx of who presents with back pain and cord compression on MRI likely secondary to pathological fractures of the vertebral bodies, most severe at C56, T4. The patient said he fell around 2016 and suffered a T4 compression fracture. He subsequently saw a doctor in [place] who ordered a CT chest abdomen and pelvis which showed likely metastatic lesions in the spleen, liver and lungs. It is unclear what his primary tumor is. He presented to the ED today with back pain. MRI showed cord compression most severe at T4 likely secondary to pathological compression fxs. The patient denies any saddle anesthesia. Denies bowel or bladder issues. No radiculopathy. Only neurological complaint is some numbness and tingling over the lateral upper left arm. No past medical history on file. No past surgical history on file. Current hospital medications: 0.9% NaCl 3-5 mL 3-5 mL INTRAVENOUS q 12 H 0.9% NaCl 2-10 mL 2-10 mL INTRAVENOUS q 12 H docusate sodium 100 mg cap(s) (COLACE) 100 mg ORAL BID PRN heparin 5,000 Units injection 5,000 Units SUBCUTANEOUS q 8 H dexamethasone sodium phosphate 10 mg injection (DECADRON) 10 mg INTRAVENOUS ONCE iv contrast (radiology procedure) INTRAVENOUS DIRECTED PRN iv contrast (radiology procedure) INTRAVENOUS DIRECTED PRN iv contrast (radiology procedure) INTRAVENOUS DIRECTED PRN Allergies: ALLERGIES Allergen Reactions - Sulfa (Sulfonamide * Rash No family history on file. Social History Substance Use Topics - Smoking status: Never Smoker - Smokeless tobacco: Current User Types: Snuff - Alcohol use Yes REVIEW OF SYSTEMS GENERAL: No fevers INFECTIOUS: Negative for recent illness SKIN: Negative for new rashes and/or breaks in skin VISION: Negative for recent changes in vision HEARING: Negative for recent changes in hearing TASTE/SMELL: Negative for recent changes in taste/sense of smell CARDIOVASCULAR: Negative for chest pain, leg swelling or palpitations. RESPIRATORY: Negative for cough, wheezing or shortness of breath. GI: Negative for changes in bowel habits : Negative for changes in urinary habits. ENDOCRINE: Negative for heat/cold intolerance MUSCULOSKELETAL: See HPI PSYCHIATRIC: Negative for recent changes in psychiatric history PHYSICAL EXAM BP 146/92 Pulse 74 Temp (Src) 98 (Oral) Resp 18 Ht 5' 10 (1.78m) Wt 178 lb 12.7 oz (81.1kg) SpO2 95% BMI 25.65 kg/(m2). Gen: AOx3, NAD CV: RRR Resp: CTAB, no labored breathing, no wheezing Abd: soft, NT/ND L UE: D 5/5 B 5/5 T 5/5 WE 5/5 WF 5/5 FF 5/5 IO 5/5, SILT C5-T1 R UE: D 5/5 B 5/5 T 5/5 WE 5/5 WF 5/5 FF 5/5 IO 5/5, SILT C5-T1 L LE: HF 5/5 KE 5/5 DF 5/5 EHL 5/5 PF 5/5, SILT L1-S1 R LE: HF 5/5 KE 5/5 DF 5/5 EHL 5/5 PF 5/5, SILT L1-S1 DTRs: 2+ patellar . Rectal: nl sensation; normal passive/bear down tone Gait: no ataxia, slight limp he says is chronic from bilat knee replacements. LABS: Pending. IMAGING/RADIOGRAPHS: MRI spine IMPRESSION: Cervical spine: Focus of marrow signal abnormality at C4 compatible with bony metastasis. ?No pathologic enhancement in the cervical cord. ?Severe degenerative disc disease in the lower cervical spine with Canal stenosis is worst at C5-C6. Thoracic spine: Multiple areas of abnormal marrow signal in the MID thoracic vertebrae. ?T4 is most affected which shows a 50% pathologic compression fracture with abnormal epidural metastatic soft tissue. ?This results in moderate CORD compression at this level without evidence for cord signal abnormality. No evidence of leptomeningeal disease in the thoracic CORD. Lumbar spine: Bony metastasis at the S2 segment. ?Lumbar vertebrae show no evidence of metastatic disease. ?No evidence of leptomeningeal disease. ?Severe neural foraminal stenoses at right L4-L5 and bilateral L5-S1 due to degenerative disc and facet disease. ?No pathologic enhancement involving conus medullaris or cauda equina. Incidentally noted 1.5 cm enhancing lesion in the right lobe of the liver. ?This is suspicious for an additional metastatic focus Patient Name: Delmi Phillips Account #: Data Unavailable Admission Date: 06/03/2017 Date of Evaluation: 06/04/2017 Time of Evaluation: 3:48 AM Kevon Walters MD PGY-1 Orthopaedic Surgery June 04, 2017 3:48 AM After 5:00PM and weekends, please page [phone]-[phone] Addendum: Seen independently 66M w back pain starting in February after a fall. Radiographic workup in the first week of May showed compression fracture. MRI was performed on 06/01 and due to concerning findings for pathologic fx and transferred to F. Pain both upright and supine. Not worse in the morning or evening. Positive hematuria. No weakness, numbness or tingling. No bowel or bladder symptoms. No thoracic chest pain. MRI demonstrates bony involvement in the upper and mid cervical spine as well as S2. On CT read available (not physical images), there are multiple lung nodules and a large liver nodule but nothing in the kidney or bladders. On exam, intact without hyperreflexia or ataxia. Pain likely mechanical in nature. No signs or symptoms of thoracic myelopathy at this time. Recommendation: IR consult for biopsy Standing upright thoracic xrays Onc/Radonc consults Alonzo Conway MD Spine Fellow HISTORY PHYSICAL Observed: 06/04/2017 Status: COMPLETED Source: [place] 3:05 AM [facility] REPOSITORY HNO ID: [id number] Author: Horace Whitlock) Esha Service: General Internal Medicine Author Type: Physician Type: HANDP Filed: 06/04/2017 1:00 PM Note Text: HEPATOLOGY -GREEN TEAM History and Physical PATIENT NAME: Delmi Phillips SERVICE DATE: 06/04/2017 SERVICE TIME: 3:06 AM [facility]IAN: Jerry Aguirre CNP Chief Complaint Back pain History of Presenting Illness Patient had no records on him. He receives his medical care at [place]. A release of medical records has been sent overnight. Delmi Phillips is a 66 year old male PMH: - Chewing tobacco Patient was doing well until when he fell on his back. His back continued to hurt so he sought medical attention and underwent workup including a CT scan that showed pulmonary nodules, T4 fracture with metastatic lesions in the spine and a cyst at the fracture site. Patient has sent his CT to Dr. Mcarthur, and was accepted to oncology. Patient says the back pain is midline and sometimes radiates to the chest and the left arm. He denies numbness, tingling, gait unsteadiness, shooting pain down the legs, decreased sensation, fever, chills, night pains or night sweats. No loss of bladder or stool control. Patient has family history of cancer in the family: - Brother: lung and bladder - Brother: prostate - Father: esophagus At the ED, patient was HDS and afebrile. CBC normal CMP: Na 131 Patient underwent an MRI that showed bony mets at C4, mid thoracic vertebrae and S2. Pathologic fracture at T4, moderate cord compression at this level. 1.5 cm lesion in the right lobe of the liver suspicious of mets. Review of Systems PAIN ASSESSMENT: Negative for pain, history of chronic pain GENERAL: No fever, chills, night sweats, weight loss/gain, or malaise HEENT: Negative for frequent/significant DIAZ, no visual/hearing changes, no nose bleeds or other nasal problems NECK: Negative for lumps, pain, and significant neck swelling RESPIRATORY: Chronic SOB. Negative for cough, hemoptysis, and wheezing CARDIOVASCULAR: Negative for CP, palpitations, orthopnea, PND, and leg swelling GI: No abdominal pain, nausea, vomiting or diarrhea : No dysuria, hematuria, increased frequency or incontinence, or hesitancy MUSCULOSKELETAL: Negative for joint pain or swelling, back pain or muscle pain besides HPI SKIN: Negative for lesions, rash, and itching PSYCH: Negative for sleep disturbance, mood disorder and recent psychosocial stressors HEMATOLOGY/LYMPHOLOGY: Negative for prolonged bleeding, bruising easily or swollen nodes ENDOCRINE: Negative for cold or heat intolerance, polyuria, and polydipsia NEURO: No DIAZ, lightheadedness, dizziness, syncope, paralysis, seizures or tremors Family/Medical/Surgical/Social Hx No family history on file. No past medical history on file. No past surgical history on file. Social History Marital status: Spouse name: Years of education: Number of children: Social History Main Topics Smoking status: Never Smoker Smokeless status: Current User Types: Snuff Alcohol use: Yes Drug use: No Medications/Allergies Prior to Admission Medications: Prescriptions Prior to Admission: naproxen sodium (ALEVE) 220 mg tablet Take 220 mg by mouth twice daily with meals. Disp: Rfl: acetaminophen (TYLENOL) 325 mg tablet Take 650 mg by mouth every 6 hours as needed. Disp: Rfl: albuterol HFA (VENTOLIN HFA) 90 mcg/actuation inhaler Inhale 2 Puffs as instructed every 6 hours as needed. Disp: 1 Inhaler Rfl: 3 Current Medications: naproxen sodium (ALEVE) 220 mg tablet Take 220 mg by mouth twice daily with meals. acetaminophen (TYLENOL) 325 mg tablet Take 650 mg by mouth every 6 hours as needed. albuterol HFA (VENTOLIN HFA) 90 mcg/actuation inhaler Inhale 2 Puffs as instructed every 6 hours as needed. Sulfa (Sulfonamide Antibiotics); Tizanidine Physical Exam 06/03/17 2313 06/04/17 0150 06/04/17 0246 06/04/17 0301 BP: 148/82 137/75 138/84 146/92 Pulse: 84 75 79 74 Resp: Temp: 36.7 ?C (98 ?F) 37.1 ?C (98.8 ?F) 36.7 ?C (98 ?F) TempSrc: Oral Oral Oral SpO2: 98% 97% 96% 95% Weight: 79.4 kg (175 lb) 81.1 kg (178 lb 12.7 oz) Height: 177.8 cm (5' 10) Temp Av.8 ?C (98.2 ?F) Min: 36.7 ?C (98 ?F) Max: 37.1 ?C (98.8 ?F) Pulse Av.4 Min: 74 Max: 85 No Data Recorded Cuff BP Min: 137/75 Max: 153/85 Body mass index is 25.65 kg/(m2). BP 146/92 Pulse 74 Temp 36.7 ?C (98 ?F) (Oral) Resp 18 Ht 177.8 cm (5' 10) Wt 81.1 kg (178 lb 12.7 oz) SpO2 95% BMI 25.65 kg/m2 General: No acute distress, AANDOx3. Skin: Normal. Intact, no lesions. Head: Normocephalic, atraumatic. Eyes: Anicteric sclera. PERRLA. EOMI. Oral: Lips, mucosa, and tongue normal and gums normal. Neck: Supple, no adenopathy. No JVD. Thyroid not enlarged. Cardiovascular: RRR, no murmurs or gallops auscultated Respiratory: CTA b/l. No wheezing, rhonchi, or crackles. No respiratory distress. Abdomen: Soft, non-tender, non-distended. Bowel sounds normal. No organomegaly or masses. Genitourinary: No CVA tenderness. Back: No pain to palpation over spine. Non-tender cyst was palpated midline slightly towards the right Extremities: No clubbing, cyanosis, or edema. Peripheral pulses + cap refill x 4. Musculoskeletal: No joint swelling, deformity, or tenderness. Neuro: Motor and sensory function grossly intact x 4 Psych: Normal affect, conversant. Labs CBC, Coags, BMP, Mg, Phos Recent Labs 06/03/17 2142 WBC 8.04 HB 13.2 HCT 40.6 PLT 263 NA 131* K 3.9 CHLOR 95* CO2 22 BUN 5* CREAT 0.67* GLUC 91 CA 8.5 CBC: Recent Labs 06/03/17 2142 WBC 8.04 HB 13.2 PLT 263 MCV 89.8 RDWCV 13.6 NEUTP 65.1 ABSNEUT 5.21 LYMPHP 21.0 MONOP 11.8 EODINP 1.7 COAG: No results for input(s): APTT, INR in the last 168 hours. BMP: Recent Labs 06/03/17 2142 GLUC 91 NA 131* K 3.9 CHLOR 95* CO2 22 ANION 14 BUN 5* CREAT 0.67* CHEM: Recent Labs 06/03/17 2142 CA 8.5 Assessment and Plan 66M previously healthy presents with back pain and new bone mets on MRI with evidence of cord compression #Cord compression - Found on MRI at level T4 - Normal neurological exam - CBC,CMP normal - No previous history of cancer - Underwent recent CT imaging that showed lung nodules Plan: . Start steroids, dexa 20 mg IV . Neurosurgery on board, preop testing ordered in case patient needs surgery . NPO MAINTENANCE: # Diet - Regular # VTE PPx - SubQ enoxaparin qd # GI PPx - None # IVF's - None # Dispo Planning - TBD # Code Status - Full SIGNATURE: Terrell Fall MD. PGY-1 PATIENT NAME: Delmi Phillips DATE: June 04, 2017 TIME: 3:06 AM PAGER: [phone] Note: These recommendations are not final until staffed by provider Attending Note: I personally interviewed and examined Mr Phillips and confirmed the padgett elements of the history and physical exam documented by Dr Fall. the resident. Patient initially presented to local with a back pain after he had a fall at the time of . As the pain continued he revisited he revisited his PCP and subsequently had a CT spine which showed fracture at T4 level. And during that workup he was also found to have pulmonary nodules. Subsequently was referred to local oncologist. As the pain continued he had an MRI subsequently transferred to [facility] for further evaluation of his possible metastatic lesions and also questionable cord compression. Patient denies any weakness in arms or legs no incontinence, walks normal. No history of weight loss or change in bowel habits. No history of incontinence or difficulty in passing urine. No history of cough. His back pain is increased with movement. O/E: No neurological deficit No signs of upper motor neuron lesion or cord compression I have explained to the family and the patient the MRI results, subsequent needle biopsy to establish diagnosis. We also need a CT scan of the chest done recently at [facility]. Patient has been seen by orthopedic team and no further surgical intervention is needed at this time. We will treat him with naproxen and tramadol for the pain I have reviewed her note above and endorse the findings and plan. A portion of this document has been created with the use of voice-recognition technology. It may contain inaccuracies such as: misspellings or inaccurate syntax or word sense that escaped review. Dr. Horace CHACKO MD June 04, 2017 1:00 PM ? ED NOTE Observed: 06/04/2017 Status: COMPLETED Source: [place] 2:09 AM [facility] REPOSITORY HNO ID: [id number] Author: Liz KoehlerRn) TANYA Larry Service: Emergency Medicine Author Type: Registered Nurse Type: ED Notes Filed: 06/04/2017 2:17 AM Note Text: Medicated for 2/10 back pain as ordered by Alyson PEDRAZA; see MAR. Denies further needs. No distress noted. Call light in reach, will continue to monitor. ED NOTE Observed: 06/04/2017 Status: COMPLETED Source: [place] 1:50 AM [facility] REPOSITORY HNO ID: [id number] Author: Liz Morrow) TANYA Larry Service: Emergency Medicine Author Type: Registered Nurse Type: ED Notes Filed: 06/04/2017 1:51 AM Note Text: Returned from MRI via w/c escorted by [employer]. Remains stable. VSS. States 2/10 back pain. Denies needs. Updated on poc, verbalizes understanding. Call light in reach, will continue to monitor. MRI LUMBAR SPINE Observed: 06/04/2017 Status: F Source: [place] WO/W IVCON 1:24 AM [facility] REPOSITORY * * *Final Report* * * DATE OF EXAM: Jun 04 2017 1:24AM [facility] 0304 - MRI LUMBAR SPINE WO/W IVCON / PROCEDURE REASON: Back pain * * * * Physician Interpretation * * * * EXAMINATION: MRI CERVICAL SPINE WO/W IVCON, MRI THORACIC SPINE WO/W IVCON, MRI LUMBAR SPINE WO/W IVCON HISTORY: Back pain TECHNIQUE: Metastasis MR protocol of the complete spine without and with intravenous gadolinium. MQ: [id number] MR Contrast: Dotarem Contrast Dose: 15 cc Route of Administration: Intravenous COMPARISON: None RESULT: CERVICAL: Counting reference: Craniocervical junction. Alignment: Alignment is anatomic. There is severe loss of disc height at C5-C6 and C6-C7 reflecting degeneration. Craniocervical junction: Craniocervical junction is normal. Cord: The cervical spinal cord is within normal limits of signal intensity and morphology. There is no pathologic enhancement. Bone marrow signal/fracture: There is a 1 cm focus of abnormal decreased T1 marrow signal in the C4 vertebra. No evidence of prior fracture. Cervical soft tissues: The paraspinal soft tissues are within normal limits. C2-C3: Moderate right neural foraminal stenosis due to facet hypertrophy. Canal and left neural foramen are patent. C3-C4: Mild narrowing of the spinal canal due to bulge. Left and right neural foramina are patent but there are hypertrophic changes in the right facet joint. C4-C5: Small central protrusion causes mild narrowing of the spinal canal. Severe right neural foraminal stenosis due to facet and uncovertebral joint hypertrophy. Mild left neural foraminal stenosis due to the same. C5-C6: Moderate narrowing of the spinal canal due to disc osteophyte complex. Bilateral mild neural foraminal stenosis due to uncovertebral joint hypertrophy. C6-C7: Mild narrowing of the spinal canal due to bulge. Mild right and moderate left neural foraminal stenosis due to uncovertebral joint hypertrophy. C7-T1: Canal and foramina are patent. THORACIC: Counting reference: Lumbosacral junction. For the purposes of this report, L4-5 is considered the level of the iliac crest. Alignment: Alignment is anatomic. Cord: There is moderate cord compression due to pathologic compression fracture of the T4 vertebra and abnormal epidural soft tissue associated with this pathologic compression fracture. No evidence of leptomeningeal disease. No intramedullary signal abnormality. Bone marrow signal/fracture: There is diffuse abnormal decreased T1 marrow signal throughout T4 which is pathologically compressed. Physicians abnormal marrow signal throughout T4 there are large areas of abnormal marrow signal along the dorsal aspect of T5 and throughout the ventral half of T7 compatible with additional areas of bony metastasis. 50% pathologic compression fracture of T4 with moderate dorsal displacement the posterior wall. Thoracic soft tissues: There is abnormal epidural soft tissue dorsal to T4 compatible with bony metastasis. Canal and foramina: Severe left T4-T5 and moderate right T4-T5 neural foraminal stenosis due to the abnormal epidural soft tissue related to the pathologic compression fracture. Mild left T3-T4 neural foraminal stenosis. Canal and foramina lumbar spine is otherwise normal. LUMBAR: Counting reference: Lumbosacral junction. For the purposes of this report, L4-5 is considered the level of the iliac crest. Alignment: Alignment is anatomic. Bone marrow signal/fracture: No evidence of pathologic marrow infiltration. No evidence of prior fracture. Conus: The conus is within normal limits of signal intensity and morphology. Paraspinal soft tissues: Incidentally noted 1.5 cm enhancing lesion in the right lobe of the liver (series 19 image 1 and series 20 image 1). T12-L1: Canal and foramina are patent. L1-L2: Canal and foramina are patent. L2-L3: Mild narrowing of the spinal canal due to bulge. Foramina are mildly narrowed. L3-L4: Mild narrowing of the spinal canal due to hypertrophic changes in the facet joints. Intervertebral disc is normal. Neural foramina show bilateral moderate stenosis. L4-L5: Moderate-severe spinal canal stenosis due to bulge and hypertrophic changes in the facet joints. Moderate left and severe right neural foraminal stenosis due to endplate and facet hypertrophy. L5-S1: Mild narrowing of the spinal canal due to disc osteophyte complex. Bilateral severe neural foraminal stenosis due to loss of disc height, hypertrophic changes in the facet joints and endplates. Sacrum and iliac wings: 1 there is expansile abnormal decreased T1 marrow signal throughout the S2 segment compatible with bony metastatic disease. IMPRESSION: Cervical spine: Focus of marrow signal abnormality at C4 compatible with bony metastasis. No pathologic enhancement in the cervical cord. Severe degenerative disc disease in the lower cervical spine with Canal stenosis is worst at C5-C6. Thoracic spine: Multiple areas of abnormal marrow signal in the MID thoracic vertebrae. T4 is most affected which shows a 50% pathologic compression fracture with abnormal epidural metastatic soft tissue. This results in moderate CORD compression at this level without evidence for cord signal abnormality. No evidence of leptomeningeal disease in the thoracic CORD. Lumbar spine: Bony metastasis at the S2 segment. Lumbar vertebrae show no evidence of metastatic disease. No evidence of leptomeningeal disease. Severe neural foraminal stenoses at right L4-L5 and bilateral L5-S1 due to degenerative disc and facet disease. No pathologic enhancement involving conus medullaris or cauda equina. Incidentally noted 1.5 cm enhancing lesion in the right lobe of the liver. This is suspicious for an additional metastatic focus. Senior Piping Designer: MERRY Transcribe Date/Time: Jun 04 2017 2:03A Dictated by : ALONSO KINNEY MD This examination was interpreted and the report reviewed and electronically signed by: ALONSO KINNEY MD on Jun 04 2017 2:16AM EST [id number] MRI THORACIC SPINE Observed: 06/04/2017 Status: F Source: [place] WO/W IVCON 1:24 AM [facility] REPOSITORY * * *Final Report* * * DATE OF EXAM: Jun 04 2017 1:24AM [facility] 0326 - MRI THORACIC SPINE WO/W IVCON / PROCEDURE REASON: Back pain * * * * Physician Interpretation * * * * EXAMINATION: MRI CERVICAL SPINE WO/W IVCON, MRI THORACIC SPINE WO/W IVCON, MRI LUMBAR SPINE WO/W IVCON HISTORY: Back pain TECHNIQUE: Metastasis MR protocol of the complete spine without and with intravenous gadolinium. MQ: [id number] MR Contrast: Dotarem Contrast Dose: 15 cc Route of Administration: Intravenous COMPARISON: None RESULT: CERVICAL: Counting reference: Craniocervical junction. Alignment: Alignment is anatomic. There is severe loss of disc height at C5-C6 and C6-C7 reflecting degeneration. Craniocervical junction: Craniocervical junction is normal. Cord: The cervical spinal cord is within normal limits of signal intensity and morphology. There is no pathologic enhancement. Bone marrow signal/fracture: There is a 1 cm focus of abnormal decreased T1 marrow signal in the C4 vertebra. No evidence of prior fracture. Cervical soft tissues: The paraspinal soft tissues are within normal limits. C2-C3: Moderate right neural foraminal stenosis due to facet hypertrophy. Canal and left neural foramen are patent. C3-C4: Mild narrowing of the spinal canal due to bulge. Left and right neural foramina are patent but there are hypertrophic changes in the right facet joint. C4-C5: Small central protrusion causes mild narrowing of the spinal canal. Severe right neural foraminal stenosis due to facet and uncovertebral joint hypertrophy. Mild left neural foraminal stenosis due to the same. C5-C6: Moderate narrowing of the spinal canal due to disc osteophyte complex. Bilateral mild neural foraminal stenosis due to uncovertebral joint hypertrophy. C6-C7: Mild narrowing of the spinal canal due to bulge. Mild right and moderate left neural foraminal stenosis due to uncovertebral joint hypertrophy. C7-T1: Canal and foramina are patent. THORACIC: Counting reference: Lumbosacral junction. For the purposes of this report, L4-5 is considered the level of the iliac crest. Alignment: Alignment is anatomic. Cord: There is moderate cord compression due to pathologic compression fracture of the T4 vertebra and abnormal epidural soft tissue associated with this pathologic compression fracture. No evidence of leptomeningeal disease. No intramedullary signal abnormality. Bone marrow signal/fracture: There is diffuse abnormal decreased T1 marrow signal throughout T4 which is pathologically compressed. Physicians abnormal marrow signal throughout T4 there are large areas of abnormal marrow signal along the dorsal aspect of T5 and throughout the ventral half of T7 compatible with additional areas of bony metastasis. 50% pathologic compression fracture of T4 with moderate dorsal displacement the posterior wall. Thoracic soft tissues: There is abnormal epidural soft tissue dorsal to T4 compatible with bony metastasis. Canal and foramina: Severe left T4-T5 and moderate right T4-T5 neural foraminal stenosis due to the abnormal epidural soft tissue related to the pathologic compression fracture. Mild left T3-T4 neural foraminal stenosis. Canal and foramina lumbar spine is otherwise normal. LUMBAR: Counting reference: Lumbosacral junction. For the purposes of this report, L4-5 is considered the level of the iliac crest. Alignment: Alignment is anatomic. Bone marrow signal/fracture: No evidence of pathologic marrow infiltration. No evidence of prior fracture. Conus: The conus is within normal limits of signal intensity and morphology. Paraspinal soft tissues: Incidentally noted 1.5 cm enhancing lesion in the right lobe of the liver (series 19 image 1 and series 20 image 1). T12-L1: Canal and foramina are patent. L1-L2: Canal and foramina are patent. L2-L3: Mild narrowing of the spinal canal due to bulge. Foramina are mildly narrowed. L3-L4: Mild narrowing of the spinal canal due to hypertrophic changes in the facet joints. Intervertebral disc is normal. Neural foramina show bilateral moderate stenosis. L4-L5: Moderate-severe spinal canal stenosis due to bulge and hypertrophic changes in the facet joints. Moderate left and severe right neural foraminal stenosis due to endplate and facet hypertrophy. L5-S1: Mild narrowing of the spinal canal due to disc osteophyte complex. Bilateral severe neural foraminal stenosis due to loss of disc height, hypertrophic changes in the facet joints and endplates. Sacrum and iliac wings: 1 there is expansile abnormal decreased T1 marrow signal throughout the S2 segment compatible with bony metastatic disease. IMPRESSION: Cervical spine: Focus of marrow signal abnormality at C4 compatible with bony metastasis. No pathologic enhancement in the cervical cord. Severe degenerative disc disease in the lower cervical spine with Canal stenosis is worst at C5-C6. Thoracic spine: Multiple areas of abnormal marrow signal in the MID thoracic vertebrae. T4 is most affected which shows a 50% pathologic compression fracture with abnormal epidural metastatic soft tissue. This results in moderate CORD compression at this level without evidence for cord signal abnormality. No evidence of leptomeningeal disease in the thoracic CORD. Lumbar spine: Bony metastasis at the S2 segment. Lumbar vertebrae show no evidence of metastatic disease. No evidence of leptomeningeal disease. Severe neural foraminal stenoses at right L4-L5 and bilateral L5-S1 due to degenerative disc and facet disease. No pathologic enhancement involving conus medullaris or cauda equina. Incidentally noted 1.5 cm enhancing lesion in the right lobe of the liver. This is suspicious for an additional metastatic focus. Senior Piping Designer: [facility] MEDICAL CENTERLavern Transcribe Date/Time: Jun 04 2017 2:03A Dictated by : ALONSO KINNEY MD This examination was interpreted and the report reviewed and electronically signed by: ALONSO KINNEY MD on Jun 04 2017 2:16AM EST [id number] MRI CERVICAL SPINE Observed: 06/04/2017 Status: F Source: [place] WO/W IVCON 1:24 AM [facility] REPOSITORY * * *Final Report* * * DATE OF EXAM: Jun 04 2017 1:24AM [facility] 0298 - MRI CERVICAL SPINE WO/W IVCON / PROCEDURE REASON: Back pain * * * * Physician Interpretation * * * * EXAMINATION: MRI CERVICAL SPINE WO/W IVCON, MRI THORACIC SPINE WO/W IVCON, MRI LUMBAR SPINE WO/W IVCON HISTORY: Back pain TECHNIQUE: Metastasis MR protocol of the complete spine without and with intravenous gadolinium. MQ: [id number] MR Contrast: Dotarem Contrast Dose: 15 cc Route of Administration: Intravenous COMPARISON: None RESULT: CERVICAL: Counting reference: Craniocervical junction. Alignment: Alignment is anatomic. There is severe loss of disc height at C5-C6 and C6-C7 reflecting degeneration. Craniocervical junction: Craniocervical junction is normal. Cord: The cervical spinal cord is within normal limits of signal intensity and morphology. There is no pathologic enhancement. Bone marrow signal/fracture: There is a 1 cm focus of abnormal decreased T1 marrow signal in the C4 vertebra. No evidence of prior fracture. Cervical soft tissues: The paraspinal soft tissues are within normal limits. C2-C3: Moderate right neural foraminal stenosis due to facet hypertrophy. Canal and left neural foramen are patent. C3-C4: Mild narrowing of the spinal canal due to bulge. Left and right neural foramina are patent but there are hypertrophic changes in the right facet joint. C4-C5: Small central protrusion causes mild narrowing of the spinal canal. Severe right neural foraminal stenosis due to facet and uncovertebral joint hypertrophy. Mild left neural foraminal stenosis due to the same. C5-C6: Moderate narrowing of the spinal canal due to disc osteophyte complex. Bilateral mild neural foraminal stenosis due to uncovertebral joint hypertrophy. C6-C7: Mild narrowing of the spinal canal due to bulge. Mild right and moderate left neural foraminal stenosis due to uncovertebral joint hypertrophy. C7-T1: Canal and foramina are patent. THORACIC: Counting reference: Lumbosacral junction. For the purposes of this report, L4-5 is considered the level of the iliac crest. Alignment: Alignment is anatomic. Cord: There is moderate cord compression due to pathologic compression fracture of the T4 vertebra and abnormal epidural soft tissue associated with this pathologic compression fracture. No evidence of leptomeningeal disease. No intramedullary signal abnormality. Bone marrow signal/fracture: There is diffuse abnormal decreased T1 marrow signal throughout T4 which is pathologically compressed. Physicians abnormal marrow signal throughout T4 there are large areas of abnormal marrow signal along the dorsal aspect of T5 and throughout the ventral half of T7 compatible with additional areas of bony metastasis. 50% pathologic compression fracture of T4 with moderate dorsal displacement the posterior wall. Thoracic soft tissues: There is abnormal epidural soft tissue dorsal to T4 compatible with bony metastasis. Canal and foramina: Severe left T4-T5 and moderate right T4-T5 neural foraminal stenosis due to the abnormal epidural soft tissue related to the pathologic compression fracture. Mild left T3-T4 neural foraminal stenosis. Canal and foramina lumbar spine is otherwise normal. LUMBAR: Counting reference: Lumbosacral junction. For the purposes of this report, L4-5 is considered the level of the iliac crest. Alignment: Alignment is anatomic. Bone marrow signal/fracture: No evidence of pathologic marrow infiltration. No evidence of prior fracture. Conus: The conus is within normal limits of signal intensity and morphology. Paraspinal soft tissues: Incidentally noted 1.5 cm enhancing lesion in the right lobe of the liver (series 19 image 1 and series 20 image 1). T12-L1: Canal and foramina are patent. L1-L2: Canal and foramina are patent. L2-L3: Mild narrowing of the spinal canal due to bulge. Foramina are mildly narrowed. L3-L4: Mild narrowing of the spinal canal due to hypertrophic changes in the facet joints. Intervertebral disc is normal. Neural foramina show bilateral moderate stenosis. L4-L5: Moderate-severe spinal canal stenosis due to bulge and hypertrophic changes in the facet joints. Moderate left and severe right neural foraminal stenosis due to endplate and facet hypertrophy. L5-S1: Mild narrowing of the spinal canal due to disc osteophyte complex. Bilateral severe neural foraminal stenosis due to loss of disc height, hypertrophic changes in the facet joints and endplates. Sacrum and iliac wings: 1 there is expansile abnormal decreased T1 marrow signal throughout the S2 segment compatible with bony metastatic disease. IMPRESSION: Cervical spine: Focus of marrow signal abnormality at C4 compatible with bony metastasis. No pathologic enhancement in the cervical cord. Severe degenerative disc disease in the lower cervical spine with Canal stenosis is worst at C5-C6. Thoracic spine: Multiple areas of abnormal marrow signal in the MID thoracic vertebrae. T4 is most affected which shows a 50% pathologic compression fracture with abnormal epidural metastatic soft tissue. This results in moderate CORD compression at this level without evidence for cord signal abnormality. No evidence of leptomeningeal disease in the thoracic CORD. Lumbar spine: Bony metastasis at the S2 segment. Lumbar vertebrae show no evidence of metastatic disease. No evidence of leptomeningeal disease. Severe neural foraminal stenoses at right L4-L5 and bilateral L5-S1 due to degenerative disc and facet disease. No pathologic enhancement involving conus medullaris or cauda equina. Incidentally noted 1.5 cm enhancing lesion in the right lobe of the liver. This is suspicious for an additional metastatic focus. Senior Piping Designer: MERRY Transcribe Date/Time: Jun 04 2017 2:03A Dictated by : ALONSO KINNEY MD This examination was interpreted and the report reviewed and electronically signed by: ALONSO KINNEY MD on Jun 04 2017 2:16AM EST [id number] ED NOTE Observed: 06/04/2017 Status: COMPLETED Source: [place] 1:06 AM [facility] REPOSITORY HNO ID: [id number] Author: Liz KoehlerRn) TANYA Larry Service: Emergency Medicine Author Type: Registered Nurse Type: ED Notes Filed: 06/04/2017 1:06 AM Note Text: Pt remains GUEVARA at MRI. ED NOTE Observed: 06/04/2017 Status: COMPLETED Source: [place] 12:20 AM [facility] REPOSITORY HNO ID: [id number] Author: Liz KoehlerRn) TANYA Larry Service: Emergency Medicine Author Type: Registered Nurse Type: ED Notes Filed: 06/04/2017 1:06 AM Note Text: Pt remains GUEVARA at MRI. [facility] Observed: 06/04/2017 Status: COMPLETED Source: [place] 12:15 AM [facility] REPOSITORY HNO ID: [id number] Author: Paulette Jarrett Productiv Service: (none) Author Type: (none) Type: Allied Health Filed: 06/04/2017 12:15 AM Note Text: Radiology Service Progress Note PATIENT NAME: Delmi Phillips DATE OF SERVICE: June 04, 2017 TIME: 12:15 AM PATIENT IDENTITY VERIFICATION COMPLETED USING TWO (2) METHODS: Patient confirmed name verbally and Date of . PATIENT GENDER DATA: Male PATIENT RELEVANT IMPLANT DATA REVIEWED: Yes RADIOLOGY DEPARTMENT: MR; Exam(s) Completed: Spine: WHOLE spine PERIPHERAL IV DATA: Inpatient: see LDA documentation SIGNED BY: Paulette Jarrett Gill Box Operator June 04, 2017 12:15 AM NURSING PROG Observed: 06/03/2017 Status: COMPLETED Source: [place] 11:44 PM [facility] REPOSITORY HNO ID: [id number] Author: Ellen KoehlerRn) TANYA Bowers Service: Radiology Author Type: Registered Nurse Type: Nursing Progress Note Filed: 06/03/2017 11:52 PM Note Text: Radiology Service Progress Note PATIENT NAME: Delmi Phillips DATE OF SERVICE: June 03, 2017 TIME: 11:44 PM PATIENT WEIGHT: 78kg PATIENT IDENTITY VERIFICATION COMPLETED USING TWO (2) METHODS: Patient confirmed name verbally and ID band matches.. PATIENT GENDER DATA: Male CONTRAST INDUCED NEPHROPATHY RISK FACTORS: Patient age > 60 years CREATININE: Creatinine Date Value Ref Range Status 06/03/2017 0.67 (L) 0.73 - 1.22 mg/dL Final eGFR-All Other Races Date Value Ref Range Status 06/03/2017 >60 . Final Comment: eGFR (Estimated GFR) Units of measure: mL/min/1.73 meters squared eGFR is derived from the reexpressed MDRD Study equation using the following parameters: serum creatinine, age, gender and race. The creatinine assay has been calibrated to be traceable to IDMS. An eGFR <60 mL/min/1.73m2 for >3 months is consistent with chronic kidney disease. Refer to KDOQI guidelines for clinical interpretation. In patients with unstable renal function, e.g. those with acute kidney injury, the eGFR may not accurately reflect actual GFR. eGFR- Date Value Ref Range Status 06/03/2017 >60 Final P.O.C.T. RESULTS: POC done: Yes, See Lab Tab June 03, 2017 TREATMENT: No Hydration needed. ALLERGIES: Reviewed and unchanged CONTRAST ALLERGY: NO. IV SITE: Inpatient - refer to LDA documentation IV SITE APPEARANCE: Clean,Dry and Intact SIGNED BY: Ellen Bowers RN June 03, 2017 11:44 PM ED NOTE Observed: 06/03/2017 Status: COMPLETED Source: [place] 11:24 PM [facility] REPOSITORY HNO ID: [id number] Author: Liz Morrow) TANYA Larry Service: Emergency Medicine Author Type: Registered Nurse Type: ED Notes Filed: 06/03/2017 11:45 PM Note Text: Assumed care of pt. Pt laying in bed in NAD. Here for evaluation of back pain. States he had a CT scan that showed cyst/tumor. States he fell around Thanksgiving and has a T4-T5 fracture. Denies any loss of bowel or bladder. Pt aANDo x 3, ROBERSON, ABC's intact. C/o 04/13 back pain. Updated on poc, verbalizes understanding. Patient has an ID Band on , has an Allergy Band on, is in the bed/cart with Side Rails up x2 and has the Call Hawkins within reach. Family x 2 at bedside. Will continue to monitor. Transported to [facility] via W/C escorted by Hospital Transport. Remains stable. ED NOTE Observed: 06/03/2017 Status: COMPLETED Source: [place] 11:12 PM [facility] REPOSITORY HNO ID: [id number] Author: Sofiya (Rn) TANYA Santizo Service: Emergency Medicine Author Type: Registered Nurse Type: ED Notes Filed: 06/03/2017 11:12 PM Note Text: Report given to MRI ED NOTE Observed: 06/03/2017 Status: COMPLETED Source: [place] 9:42 PM [facility] REPOSITORY HNO ID: [id number] Author: Lizz (Medic) Venu Fuller Service: Emergency Medicine Author Type: Cattle Trader and Pump Servicer Type: ED Notes Filed: 06/03/2017 9:46 PM Note Text: Labs were drawn and sent. CBC AND DIFFERENTIAL Collected: 06/03/2017 Status: F Source: [place] 9:42 PM [facility] REPOSITORY TYPE CODE TESTS RESULT OUT OF RANGE REFERENCE UNITS LAB WBC 3.70-11.00 k/uL WBC 8.04 Result Comment: Less than optimal volume of specimen received and tested. LAB RBC 4.20-6.00 m/uL RBC 4.52 LAB HGB 13.0-17.0 g/dL Hemoglobin 13.2 LAB HCT 39.0-51.0 % Hematocrit 40.6 LAB MCV 80.0-100.0 fL MCV 89.8 LAB MCH 26.0-34.0 pG MCH 29.2 LAB MCHC 30.5-36.0 g/dL MCHC 32.5 LAB RDWCV 11.5-15.0 % RDW-CV 13.6 LAB PLTCT 150-400 k/uL Platelet Count 263 LAB MPV 9.0-12.7 fL MPV 9.6 LAB ANEUT % Neut% 65.1 LAB AANEUT 1.45-7.50 k/uL Abs Neut 5.21 LAB ALYMP % Lymph% 21.0 LAB AALYMP 1.00-4.00 k/uL Abs Lymph 1.69 LAB AMONO % [place]% 11.8 LAB AAMONO <0.87 k/uL Abs [place] High 0.95 LAB AEOS % Eosin% 1.7 LAB AAEOS <0.46 k/uL Abs Eosin 0.14 LAB ABASO % Baso% 0.4 LAB AABASO <0.11 k/uL Abs Baso 0.03 LAB AUNRBC 0 /100 WBC NRBCs 0.0 LAB ABNRBC <0.01 k/uL Absolute nRBC <0.01 LAB DTYP DTYPE Auto Diff Performed By: #### CBCDIF, ROSI #### [facility] [address] [place] [id number] BASIC METABOLIC PANL Collected: 06/03/2017 Status: F Source: [place] 9:42 PM [facility] REPOSITORY TYPE CODE TESTS RESULT OUT OF REFERENCE UNITS RANGE LAB GLU 74-99 mg/dL Glucose 91 Result Comment: The [place] [employer] (ADA) provides guidance for cutoff values for fasting glucose and random glucose. The ADA defines fasting as no caloric intake for at least 8 hours. Fas ting plasma glucose results between 100 to 125 mg/dL indicate increased risk for diabetes (prediabetes). Fasting plasma glucose results greater than or equal to 126 mg/dL meet the criteria for diagnosis of diabetes. In the absence of unequivocal hyperglycemia, results should be confirmed by repeat testing. In a patient with classic symptoms of hyperglycemia or hyperglycemic crisis, random plasma glucose results greater than or equal to 200 mg/dL meet the criteria for diagnosis of diabetes. Reference: Standards of Medical Care in Diabetes 2016, [place] [employer]. Diabetes Care. 2016.39(Suppl 1). LAB BUN 9-24 mg/dL BUN Low 5 LAB CRET 0.73-1.22 mg/dL Creatinine Low 0.67 LAB NA 136-144 mmol/L Sodium Low 131 LAB K 3.7-5.1 mmol/L Potassium 3.9 LAB CL 97-105 mmol/L Chloride Low 95 LAB CO2 22-30 mmol/L CO2 22 LAB AGAP 9-18 mmol/L Anion Gap 14 LAB CA 8.5-10.2 mg/dL Calcium, Total 8.5 LAB GFRAA eGFR- Amer. >60 LAB GFRNAA . eGFR-All Other Races >60 Result Comment: eGFR (Estimated GFR) Units of measure: mL/min/1.73 meters squared eGFR is derived from the reexpressed MDRD Study equation using the following parameters: serum creatinine, age, gender and race. The creatinine assay has been calibrated to be traceable to IDMS. An eGFR <60 mL/min/1.73m2 for >3 months is consistent with chronic kidney disease. Refer to KDOQI guidelines for clinical interpretation. In patients with unstable renal function, e.g. those with acute kidney injury, the eGFR may not accurately reflect actual GFR. Performed By: #### CBCDIF, BMP #### [facility] [address] [place], [place] [address] ED PROV NOTE Observed: 06/03/2017 Status: COMPLETED Source: [place] 9:39 PM [facility] REPOSITORY HNO ID: [id number] Author: Tona Montoya Service: Emergency Medicine Author Type: Physician Type: ED Provider Notes Filed: 06/05/2017 4:32 PM Note Text: ED Provider Note Patient Name: Delmi Phillips SERVICE DATE: 06/03/17 History Patient presents with: Back Pain Sent By Md DICK Comments: Delmi Phillips is a 66 year old male presenting with back pain. Patient has a history of a fall the day after last year and has had ongoing back pain since that fall. He was evaluated regarding this back pain in his home town of [facility] and was found in late May to have possible pathologic fracture to T4 and T5. He contacted Dr. Oakes with oncology and had his records forwarded to his office. Dr. Oakes's office contacted him earlier today and asked him to present to the ED for evaluation due to concern for cord compression and metastatic disease. Patient currently reports no pain and reports only having moderate achy back pain when he twists or bends. He denies any history of trauma. He denies any loss of bowel or bladder continence or IV drug use. MHx:none SHx: b/l knee replacements Social History Social History Main Topics - Smoking status: Never Smoker - Smokeless tobacco: Current User Types: Snuff - Alcohol use Yes - Drug use: No - Sexual activity: Not Asked ALLERGIES Allergen Reactions - Sulfa (Sulfonamide * Rash Review of Systems Constitutional: Negative for chills and fever. HENT: Negative for sore throat. Eyes: Negative for visual disturbance. Respiratory: Negative for cough, shortness of breath and wheezing. Cardiovascular: Negative for chest pain and palpitations. Gastrointestinal: Negative for abdominal pain, nausea and vomiting. Genitourinary: Negative for dysuria. Musculoskeletal: Positive for back pain. Negative for neck pain. Skin: Negative for rash. Neurological: Negative for weakness. Psychiatric/Behavioral: Negative for suicidal ideas. All other systems reviewed and are negative. Physical Exam BP 153/85 Pulse 85 Temp (Src) 98.1 (Oral) Resp 16 SpO2 96% Physical Exam Constitutional: He is oriented to person, place, and time. He appears well-developed and well-nourished. No distress. HENT: Head: Normocephalic and atraumatic. Eyes: Conjunctivae are normal. Pupils are equal, round, and reactive to light. Neck: Normal range of motion. Neck supple. No tracheal deviation present. Cardiovascular: Normal rate, regular rhythm, normal heart sounds and intact distal pulses. Pulmonary/Chest: Effort normal and breath sounds normal. No respiratory distress. He has no wheezes. Abdominal: Soft. Bowel sounds are normal. He exhibits no distension and no mass. There is no tenderness. Musculoskeletal: He exhibits no edema. No blood inside tenderness noted to back, 3 cm circular cyst noted to lateral mid thoracic spine. Neurological: He is alert and oriented to person, place, and time. No cranial nerve deficit. Coordination normal. Strength 5/5 to b/l hip and knee, no saddle anesthesia, normal babinski's b/l, strength 5 out of 5 bilaterally to her shoulders and elbows. Skin: Skin is warm and dry. Psychiatric: He has a normal mood and affect. His behavior is normal. Diagnostic Testing ED Labs Ordered and Reviewed CBC + DIFF - Abnormal; Notable for the following: Result Value Ref Range Abs [place] 0.95 (*) <0.87 k/uL All other components within normal limits BASIC METABOLIC PNL - Abnormal; Notable for the following: BUN 5 (*) 9 - 24 mg/dL Creatinine 0.67 (*) 0.73 - 1.22 mg/dL Sodium 131 (*) 136 - 144 mmol/L Chloride 95 (*) 97 - 105 mmol/L All other components within normal limits Procedures Medical Decision Making / ED Course ED Course Labs: CBC: No leukocytosis or anemia BMP: Mild hyponatremia Imaging: MRI: pending at time of admission. ED Course: Vital signs were reviewed. Triage records were reviewed. Medical records were reviewed. Nursing notes were reviewed and incorporated. The following medications were administered: Medications acetaminophen 1,000 mg tab(s) (TYLENOL) (1,000 mg ORAL Given 06/04/17 0209) Patient evaluated and labs drawn (see above). Given history, exam, and lab findings patient was admitted to medicine for MRI as well as further evaluation of his symptoms. MDM: Patient presents with back pain following a fall. I reviewed his imaging reads from the outside hospital which showed evidence of suspected metastatic cancer as well as logic fractures. Given this he warrants an MRI. Currently he is neurologically intact, ambulatory, and without any red flag back pain symptoms so I have a low suspicion for cord compression. This will be evaluated further with MRI. He will likely need a biopsy as well as oncology consult as an inpatient. He is otherwise agreeable to plan for admission. Encounter Diagnosis ICD-10-CM 1. Acute back pain, unspecified back location, unspecified back pain laterality M54.9 2. 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 Condition at time of disposition: stable SIGNATURE: MD Fernando Acuna (Res) Froy Resident 06/04/17 0442 Attending Note I evaluated the patient and personally participated in the padgett components. I agree with the resident's findings and plan as documented and have discussed the case and management of the patient's care with the resident. 66 yo with history of alcohol abuse presents with back pain as well as OSH imaging suggestive of metastatic lesions of the thoracic spine. Underwent minor trauma at the end of 2016, subsequently underwent imaging in May 2017, specifically CT, which was suggestive of thoracic, likely metastatic lesions, as well as pulmonary and liver lesions. No acute focal neurological deficits on exam, no bowel/bladder incontinence. Planned admission for MRI to determine any cord compression, decision re: biopsy to expedite management further. Signature: Tona Montoya MD Date: 06/05/2017 Time: 4:30 PM Tona Montoya 06/05/17 1632 ED NOTE Observed: 06/03/2017 Status: COMPLETED Source: [place] 8:03 PM [facility] REPOSITORY HNO ID: [id number] Author: Sofiya Morrow) TANYA Santizo Service: Emergency Medicine Author Type: Registered Nurse Type: ED Notes Filed: 06/03/2017 8:07 PM Note Text: Pt presents to ED with c/o mid back pain. Pt fractured his T4, T5 the day after Thanksgiving. Pt has 2 CT's done, tumor was found and was told to come to ED for further evaluation. Pt states he has some numbness in his left upper arm. Denies numbness in any other extremities. Denies loss of bowel/bladder. Pt current pain rating 1/10. Pt. AANDOx3. Respirations even and unlabored, no SOB. ROBERSON x4. PERRLA is intact. Abdomen is non tender. BS x4. Denies fever/chills. Denies chest pain, dizziness, light headedness, headache, jaw pain, left arm pain, numbness/tingling. Skin is acyanotic, warm, and intact. ABC's intact. Call hawkins within reach, side rails up x2, brakes locked, bed in lowest position. Plan of Care: -Monitor vital signs -Monitor patient for safety -Notify MD of any changes in patient condition -Update patient on POC ED NOTE Observed: 06/03/2017 Status: COMPLETED Source: [place] 7:41 PM [facility] REPOSITORY HNO ID: [id number] Author: Delroy (Rn) TANYA Reina Service: Emergency Medicine Author Type: Registered Nurse Type: ED Notes Filed: 06/03/2017 7:43 PM Note Text: Pt presents to ED via triage with c/o middle back pain and states he was sent in by MD. Per pt, MD called him with concerns for tumor on spine possibly compressing spinal cord. Pt had a fall down 2 stairs recently, now has fractured T4-5, he also has known cyst/tumor in that area. Pt denies any numbness/tingling, pain other than in middle back. Pt ambulated into triage independently with steady gait. HOSP Observed: 06/03/2017 Status: COMPLETED Source: [place] 12:00 AM [facility] REPOSITORY Patient:Delmi Phillips MRN: <[id number]> Height:5' 10(1.778 m) Weight:185 lb 6.5 oz (84.1 kg) Outpatient Medications as of 06/06/17: naproxen sodium (ALEVE) 220 mg tablet acetaminophen (TYLENOL) 325 mg tablet albuterol HFA (VENTOLIN HFA) 90 mcg/actuation inhaler Admission/Clinic Administered Medications as of 06/06/17: naproxen 500 mg tab(s) (NAPROSYN) iv contrast (radiology procedure) 0.9% NaCl 3-5 mL 0.9% NaCl 2-10 mL docusate sodium 100 mg cap(s) (COLACE) acetaminophen 650 mg tab(s) (TYLENOL) enoxaparin 40 mg injection (LOVENOX) traMADol 50 mg tab(s) (ULTRAM) Problem List: Cord compression (HCC) [G95.20] Nicotine use disorder, F17.2 [F17.200] Allergies: Sulfa (Sulfonamide Antibiotics) Tizanidine Date Verified: 06/05/17 Lab Values Lab Value Units Date High Low POTA* 4.6 mmol/L 06/06/2017 5.1 3.7 GIANNI* 36.7 % 06/06/2017 51.0 39.0 Progress Notes (): Delroy Reina RN, RN 06/03/2017 7:43 PM Signed Pt presents to ED via triage with c/o middle back pain and states he was sent in by MD. Per pt, MD called him with concerns for tumor on spine possibly compressing spinal cord. Pt had a fall down 2 stairs recently, now has fractured T4-5, he also has known cyst/tumor in that area. Pt denies any numbness/tingling, pain other than in middle back. Pt ambulated into triage independently with steady gait. Sofiya Santizo RN, RN 06/03/2017 8:07 PM Signed Pt presents to ED with c/o mid back pain. Pt fractured his T4, T5 the day after Thanksgiving. Pt has 2 CT's done, tumor was found and was told to come to ED for further evaluation. Pt states he has some numbness in his left upper arm. Denies numbness in any other extremities. Denies loss of bowel/bladder. Pt current pain rating 1/10. Pt. AANDOx3. Respirations even and unlabored, no SOB. ROBERSON x4. PERRLA is intact. Abdomen is non tender. BS x4. Denies fever/chills. Denies chest pain, dizziness, light headedness, headache, jaw pain, left arm pain, numbness/tingling. Skin is acyanotic, warm, and intact. ABC's intact. Call hawkins within reach, side rails up x2, brakes locked, bed in lowest position. Plan of Care: -Monitor vital signs -Monitor patient for safety -Notify MD of any changes in patient condition -Update patient on POC Tona Montoya MD 06/05/2017 4:32 PM Signed ED Provider Note Patient Name: Delmi Phillips SERVICE DATE: 06/03/17 History Patient presents with: Back Pain Sent By Md DICK Comments: Delmi Phillips is a 66 year old male presenting with back pain. Patient has a history of a fall the day after last year and has had ongoing back pain since that fall. He was evaluated regarding this back pain in his home town of [facility] and was found in late May to have possible pathologic fracture to T4 and T5. He contacted Dr. Oakes with oncology and had his records forwarded to his office. Dr. Oakes's office contacted him earlier today and asked him to present to the ED for evaluation due to concern for cord compression and metastatic disease. Patient currently reports no pain and reports only having moderate achy back pain when he twists or bends. He denies any history of trauma. He denies any loss of bowel or bladder continence or IV drug use. MHx:none SHx: b/l knee replacements Social History Social History Main Topics - Smoking status: Never Smoker - Smokeless tobacco: Current User Types: Snuff - Alcohol use Yes - Drug use: No - Sexual activity: Not Asked ALLERGIES Allergen Reactions - Sulfa (Sulfonamide * Rash Review of Systems Constitutional: Negative for chills and fever. HENT: Negative for sore throat. Eyes: Negative for visual disturbance. Respiratory: Negative for cough, shortness of breath and wheezing. Cardiovascular: Negative for chest pain and palpitations. Gastrointestinal: Negative for abdominal pain, nausea and vomiting. Genitourinary: Negative for dysuria. Musculoskeletal: Positive for back pain. Negative for neck pain. Skin: Negative for rash. Neurological: Negative for weakness. Psychiatric/Behavioral: Negative for suicidal ideas. All other systems reviewed and are negative. Physical Exam BP 153/85 Pulse 85 Temp (Src) 98.1 (Oral) Resp 16 SpO2 96% Physical Exam Constitutional: He is oriented to person, place, and time. He appears well-developed and well-nourished. No distress. HENT: Head: Normocephalic and atraumatic. Eyes: Conjunctivae are normal. Pupils are equal, round, and reactive to light. Neck: Normal range of motion. Neck supple. No tracheal deviation present. Cardiovascular: Normal rate, regular rhythm, normal heart sounds and intact distal pulses. Pulmonary/Chest: Effort normal and breath sounds normal. No respiratory distress. He has no wheezes. Abdominal: Soft. Bowel sounds are normal. He exhibits no distension and no mass. There is no tenderness. Musculoskeletal: He exhibits no edema. No blood inside tenderness noted to back, 3 cm circular cyst noted to lateral mid thoracic spine. Neurological: He is alert and oriented to person, place, and time. No cranial nerve deficit. Coordination normal. Strength 5/5 to b/l hip and knee, no saddle anesthesia, normal babinski's b/l, strength 5 out of 5 bilaterally to her shoulders and elbows. Skin: Skin is warm and dry. Psychiatric: He has a normal mood and affect. His behavior is normal. Diagnostic Testing ED Labs Ordered and Reviewed CBC + DIFF - Abnormal; Notable for the following: Result Value Ref Range Abs [place] 0.95 (*) <0.87 k/uL All other components within normal limits BASIC METABOLIC PNL - Abnormal; Notable for the following: BUN 5 (*) 9 - 24 mg/dL Creatinine 0.67 (*) 0.73 - 1.22 mg/dL Sodium 131 (*) 136 - 144 mmol/L Chloride 95 (*) 97 - 105 mmol/L All other components within normal limits Procedures Medical Decision Making / ED Course ED Course Labs: CBC: No leukocytosis or anemia BMP: Mild hyponatremia Imaging: MRI: pending at time of admission. ED Course: Vital signs were reviewed. Triage records were reviewed. Medical records were reviewed. Nursing notes were reviewed and incorporated. The following medications were administered: Medications acetaminophen 1,000 mg tab(s) (TYLENOL) (1,000 mg ORAL Given 06/04/17208) Patient evaluated and labs drawn (see above). Given history, exam, and lab findings patient was admitted to medicine for MRI as well as further evaluation of his symptoms. MDM: Patient presents with back pain following a fall. I reviewed his imaging reads from the outside hospital which showed evidence of suspected metastatic cancer as well as logic fractures. Given this he warrants an MRI. Currently he is neurologically intact, ambulatory, and without any red flag back pain symptoms so I have a low suspicion for cord compression. This will be evaluated further with MRI. He will likely need a biopsy as well as oncology consult as an inpatient. He is otherwise agreeable to plan for admission. Encounter Diagnosis ICD-10-CM 1. Acute back pain, unspecified back location, unspecified back pain laterality M54.9 2. 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 Condition at time of disposition: stable SIGNATURE: MD Fernando Acuna (Res) Froy Resident 06/04/17 0442 Attending Note I evaluated the patient and personally participated in the padgett components. I agree with the resident's findings and plan as documented and have discussed the case and management of the patient's care with the resident. 66 yo with history of alcohol abuse presents with back pain as well as OSH imaging suggestive of metastatic lesions of the thoracic spine. Underwent minor trauma at the end of 2016, subsequently underwent imaging in May 2017, specifically CT, which was suggestive of thoracic, likely metastatic lesions, as well as pulmonary and liver lesions. No acute focal neurological deficits on exam, no bowel/bladder incontinence. Planned admission for MRI to determine any cord compression, decision re: biopsy to expedite management further. Signature: Tona Montoya MD Date: 06/05/2017 Time: 4:30 PM Tona Montoya 06/05/17 1632 Previous Version Lizz Fuller, Medic, Medic 06/03/2017 9:46 PM Signed Labs were drawn and sent. Sofiya Santizo, RN, RN 06/03/2017 11:12 PM Signed Report given to MRI Liz Larry, RN, RN 06/03/2017 11:45 PM Addendum Assumed care of pt. Pt laying in bed in NAD. Here for evaluation of back pain. States he had a CT scan that showed cyst/tumor. States he fell around Thanksgiving and has a T4-T5 fracture. Denies any loss of bowel or bladder. Pt aANDo x 3, ROBERSON, ABC's intact. C/o 04/13 back pain. Updated on poc, verbalizes understanding. Patient has an ID Band on , has an Allergy Band on, is in the bed/cart with Side Rails up x2 and has the Call Hawkins within reach. Family x 2 at bedside. Will continue to monitor. Transported to MRI via W/C escorted by [facility]. Remains stable. Previous Version Ellen Bowers RN, RN 06/03/2017 11:52 PM Signed Radiology Service Progress Note PATIENT NAME: Delmi Phillips DATE OF SERVICE: June 03, 2017 TIME: 11:44 PM PATIENT WEIGHT: 78kg PATIENT IDENTITY VERIFICATION COMPLETED USING TWO (2) METHODS: Patient confirmed name verbally and ID band matches.. PATIENT GENDER DATA: Male CONTRAST INDUCED NEPHROPATHY RISK FACTORS: Patient age > 60 years CREATININE: Creatinine Date Value Ref Range Status 06/03/2017 0.67 (L) 0.73 - 1.22 mg/dL Final eGFR-All Other Races Date Value Ref Range Status 06/03/2017 >60 . Final Comment: eGFR (Estimated GFR) Units of measure: mL/min/1.73 meters squared eGFR is derived from the reexpressed MDRD Study equation using the following parameters: serum creatinine, age, gender and race. The creatinine assay has been calibrated to be traceable to IDMS. An eGFR <60 mL/min/1.73m2 for >3 months is consistent with chronic kidney disease. Refer to KDOQI guidelines for clinical interpretation. In patients with unstable renal function, e.g. those with acute kidney injury, the eGFR may not accurately reflect actual GFR. eGFR- Date Value Ref Range Status 06/03/2017 >60 Final P.O.C.T. RESULTS: POC done: Yes, See Lab Tab June 03, 2017 TREATMENT: No Hydration needed. ALLERGIES: Reviewed and unchanged CONTRAST ALLERGY: NO. IV SITE: Inpatient - refer to LDA documentation IV SITE APPEARANCE: Clean,Dry and Intact SIGNED BY: Ellen Bowers RN June 03, 2017 11:44 PM Paulette Hayesne Gill Box Operator 06/04/2017 12:15 AM Signed Radiology Service Progress Note PATIENT NAME: Delmi Phillips DATE OF SERVICE: June 04, 2017 TIME: 12:15 AM PATIENT IDENTITY VERIFICATION COMPLETED USING TWO (2) METHODS: Patient confirmed name verbally and Date of . PATIENT GENDER DATA: Male PATIENT RELEVANT IMPLANT DATA REVIEWED: Yes RADIOLOGY DEPARTMENT: MR; Exam(s) Completed: Spine: WHOLE spine PERIPHERAL IV DATA: Inpatient: see LDA documentation SIGNED BY: Paulette Luiza Gill Box Operator June 04, 2017 12:15 AM Liz Larry RN, RN 06/04/2017 1:06 AM Signed Pt remains GUEVARA at MRI. Liz Larry RN, RN 06/04/2017 1:06 AM Signed Pt remains GUEVARA at MRI. Liz Larry RN, RN 06/04/2017 1:51 AM Signed Returned from MRI via w/c escorted by [employer]. Remains stable. VSS. States 2/10 back pain. Denies needs. Updated on poc, verbalizes understanding. Call light in reach, will continue to monitor. Liz Larry RN, RN 06/04/2017 2:17 AM Signed Medicated for 2/10 back pain as ordered by Alyson PEDRAZA; see MAR. Denies further needs. No distress noted. Call light in reach, will continue to monitor. Horace Melton MD 06/04/2017 1:00 PM Addendum HEPATOLOGY -GREEN TEAM History and Physical PATIENT NAME: Delmi Phillips SERVICE DATE: 06/04/2017 SERVICE TIME: 3:06 AM Edmond Viera PRIMARY CARE PHYSICIAN: Jerry Aguirre CNP Chief Complaint Back pain History of Presenting Illness Patient had no records on him. He receives his medical care at [place]. A release of medical records has been sent overnight. Delmi Phillips is a 66 year old male PMH: - Chewing tobacco Patient was doing well until when he fell on his back. His back continued to hurt so he sought medical attention and underwent workup including a CT scan that showed pulmonary nodules, T4 fracture with metastatic lesions in the spine and a cyst at the fracture site. Patient has sent his CT to Dr. Mcarthur, and was accepted to oncology. Patient says the back pain is midline and sometimes radiates to the chest and the left arm. He denies numbness, tingling, gait unsteadiness, shooting pain down the legs, decreased sensation, fever, chills, night pains or night sweats. No loss of bladder or stool control. Patient has family history of cancer in the family: - Brother: lung and bladder - Brother: prostate - Father: esophagus At the ED, patient was HDS and afebrile. CBC normal CMP: Na 131 Patient underwent an MRI that showed bony mets at C4, mid thoracic vertebrae and S2. Pathologic fracture at T4, moderate cord compression at this level. 1.5 cm lesion in the right lobe of the liver suspicious of mets. Review of Systems PAIN ASSESSMENT: Negative for pain, history of chronic pain GENERAL: No fever, chills, night sweats, weight loss/gain, or malaise HEENT: Negative for frequent/significant DIAZ, no visual/hearing changes, no nose bleeds or other nasal problems NECK: Negative for lumps, pain, and significant neck swelling RESPIRATORY: Chronic SOB. Negative for cough, hemoptysis, and wheezing CARDIOVASCULAR: Negative for CP, palpitations, orthopnea, PND, and leg swelling GI: No abdominal pain, nausea, vomiting or diarrhea : No dysuria, hematuria, increased frequency or incontinence, or hesitancy MUSCULOSKELETAL: Negative for joint pain or swelling, back pain or muscle pain besides HPI SKIN: Negative for lesions, rash, and itching PSYCH: Negative for sleep disturbance, mood disorder and recent psychosocial stressors HEMATOLOGY/LYMPHOLOGY: Negative for prolonged bleeding, bruising easily or swollen nodes ENDOCRINE: Negative for cold or heat intolerance, polyuria, and polydipsia NEURO: No DIAZ, lightheadedness, dizziness, syncope, paralysis, seizures or tremors Family/Medical/Surgical/Social Hx No family history on file. No past medical history on file. No past surgical history on file. Social History Marital status: Spouse name: Years of education: Number of children: Social History Main Topics Smoking status: Never Smoker Smokeless status: Current User Types: Snuff Alcohol use: Yes Drug use: No Medications/Allergies Prior to Admission Medications: Prescriptions Prior to Admission: naproxen sodium (ALEVE) 220 mg tablet Take 220 mg by mouth twice daily with meals. Disp: Rfl: acetaminophen (TYLENOL) 325 mg tablet Take 650 mg by mouth every 6 hours as needed. Disp: Rfl: albuterol HFA (VENTOLIN HFA) 90 mcg/actuation inhaler Inhale 2 Puffs as instructed every 6 hours as needed. Disp: 1 Inhaler Rfl: 3 Current Medications: naproxen sodium (ALEVE) 220 mg tablet Take 220 mg by mouth twice daily with meals. acetaminophen (TYLENOL) 325 mg tablet Take 650 mg by mouth every 6 hours as needed. albuterol HFA (VENTOLIN HFA) 90 mcg/actuation inhaler Inhale 2 Puffs as instructed every 6 hours as needed. Sulfa (Sulfonamide Antibiotics); Tizanidine Physical Exam 06/03/17 2313 06/04/17 0150 06/04/17 0246 06/04/17 0301 BP: 148/82 137/75 138/84 146/92 Pulse: 84 75 79 74 Resp: 17 20 15 18 Temp: 36.7 ?C (98 ?F) 37.1 ?C (98.8 ?F) 36.7 ?C (98 ?F) TempSrc: Oral Oral Oral SpO2: 98% 97% 96% 95% Weight: 79.4 kg (175 lb) 81.1 kg (178 lb 12.7 oz) Height: 177.8 cm (5' 10) Temp Av.8 ?C (98.2 ?F) Min: 36.7 ?C (98 ?F) Max: 37.1 ?C (98.8 ?F) Pulse Av.4 Min: 74 Max: 85 No Data Recorded Cuff BP Min: 137/75 Max: 153/85 Body mass index is 25.65 kg/(m2). BP 146/92 Pulse 74 Temp 36.7 ?C (98 ?F) (Oral) Resp 18 Ht 177.8 cm (5' 10) Wt 81.1 kg (178 lb 12.7 oz) SpO2 95% BMI 25.65 kg/m2 General: No acute distress, AANDOx3. Skin: Normal. Intact, no lesions. Head: Normocephalic, atraumatic. Eyes: Anicteric sclera. PERRLA. EOMI. Oral: Lips, mucosa, and tongue normal and gums normal. Neck: Supple, no adenopathy. No JVD. Thyroid not enlarged. Cardiovascular: RRR, no murmurs or gallops auscultated Respiratory: CTA b/l. No wheezing, rhonchi, or crackles. No respiratory distress. Abdomen: Soft, non-tender, non-distended. Bowel sounds normal. No organomegaly or masses. Genitourinary: No CVA tenderness. Back: No pain to palpation over spine. Non-tender cyst was palpated midline slightly towards the right Extremities: No clubbing, cyanosis, or edema. Peripheral pulses + cap refill x 4. Musculoskeletal: No joint swelling, deformity, or tenderness. Neuro: Motor and sensory function grossly intact x 4 Psych: Normal affect, conversant. Labs CBC, Coags, BMP, Mg, Phos Recent Labs 06/03/17 2142 WBC 8.04 HB 13.2 HCT 40.6 PLT 263 NA 131* K 3.9 CHLOR 95* CO2 22 BUN 5* CREAT 0.67* GLUC 91 CA 8.5 CBC: Recent Labs 06/03/17 2142 WBC 8.04 HB 13.2 PLT 263 MCV 89.8 RDWCV 13.6 NEUTP 65.1 ABSNEUT 5.21 LYMPHP 21.0 MONOP 11.8 EODINP 1.7 COAG: No results for input(s): APTT, INR in the last 168 hours. BMP: Recent Labs 06/03/17 2142 GLUC 91 NA 131* K 3.9 CHLOR 95* CO2 22 ANION 14 BUN 5* CREAT 0.67* CHEM: Recent Labs 06/03/17 2142 CA 8.5 Assessment and Plan 66M previously healthy presents with back pain and new bone mets on MRI with evidence of cord compression #Cord compression - Found on MRI at level T4 - Normal neurological exam - CBC,CMP normal - No previous history of cancer - Underwent recent CT imaging that showed lung nodules Plan: . Start steroids, dexa 20 mg IV . Neurosurgery on board, preop testing ordered in case patient needs surgery . NPO MAINTENANCE: # Diet - Regular # VTE PPx - SubQ enoxaparin qd # GI PPx - None # IVF's - None # Dispo Planning - TBD # Code Status - Full SIGNATURE: Terrell Fall MD. PGY-1 PATIENT NAME: Delmi Phillips DATE: June 04, 2017 TIME: 3:06 AM PAGER: [phone] Note: These recommendations are not final until staffed by provider Attending Note: I personally interviewed and examined Mr Phillips and confirmed the padgett elements of the history and physical exam documented by Dr Fall. the resident. Patient initially presented to local with a back pain after he had a fall at the time of . As the pain continued he revisited he revisited his PCP and subsequently had a CT spine which showed fracture at T4 level. And during that workup he was also found to have pulmonary nodules. Subsequently was referred to local oncologist. As the pain continued he had an MRI subsequently transferred to [facility] for further evaluation of his possible metastatic lesions and also questionable cord compression. Patient denies any weakness in arms or legs no incontinence, walks normal. No history of weight loss or change in bowel habits. No history of incontinence or difficulty in passing urine. No history of cough. His back pain is increased with movement. O/E: No neurological deficit No signs of upper motor neuron lesion or cord compression I have explained to the family and the patient the MRI results, subsequent needle biopsy to establish diagnosis. We also need a CT scan of the chest done recently at [facility]. Patient has been seen by orthopedic team and no further surgical intervention is needed at this time. We will treat him with naproxen and tramadol for the pain I have reviewed her note above and endorse the findings and plan. A portion of this document has been created with the use of voice-recognition technology. It may contain inaccuracies such as: misspellings or inaccurate syntax or word sense that escaped review. Dr. Horace CHACKO MD June 04, 2017 1:00 PM ? 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 He is fully neurologically intact without long track signs. PLAN: 1. No acute orthopedic surgical intervention 2. Please obtain outside records and continue to workup his metastatic disease. 3. Spine team will discuss potential for operative intervention during this admission and follow daily. 4. Disposition: RNF 5. Discussed with spine fellow. HISTORY OF PRESENT ILLNESS This is a 66 year old male with no significant PMHx of who presents with back pain and cord compression on MRI likely secondary to pathological fractures of the vertebral bodies, most severe at C56, T4. The patient said he fell around 2016 and suffered a T4 compression fracture. He subsequently saw a doctor in [place] who ordered a CT chest abdomen and pelvis which showed likely metastatic lesions in the spleen, liver and lungs. It is unclear what his primary tumor is. He presented to the ED today with back pain. MRI showed cord compression most severe at T4 likely secondary to pathological compression fxs. The patient denies any saddle anesthesia. Denies bowel or bladder issues. No radiculopathy. Only neurological complaint is some numbness and tingling over the lateral upper left arm. No past medical history on file. No past surgical history on file. Current hospital medications: 0.9% NaCl 3-5 mL 3-5 mL INTRAVENOUS q 12 H 0.9% NaCl 2-10 mL 2-10 mL INTRAVENOUS q 12 H docusate sodium 100 mg cap(s) (COLACE) 100 mg ORAL BID PRN heparin 5,000 Units injection 5,000 Units SUBCUTANEOUS q 8 H dexamethasone sodium phosphate 10 mg injection (DECADRON) 10 mg INTRAVENOUS ONCE iv contrast (radiology procedure) INTRAVENOUS DIRECTED PRN iv contrast (radiology procedure) INTRAVENOUS DIRECTED PRN iv contrast (radiology procedure) INTRAVENOUS DIRECTED PRN Allergies: ALLERGIES Allergen Reactions - Sulfa (Sulfonamide * Rash No family history on file. Social History Substance Use Topics - Smoking status: Never Smoker - Smokeless tobacco: Current User Types: Snuff - Alcohol use Yes REVIEW OF SYSTEMS GENERAL: No fevers INFECTIOUS: Negative for recent illness SKIN: Negative for new rashes and/or breaks in skin VISION: Negative for recent changes in vision HEARING: Negative for recent changes in hearing TASTE/SMELL: Negative for recent changes in taste/sense of smell CARDIOVASCULAR: Negative for chest pain, leg swelling or palpitations. RESPIRATORY: Negative for cough, wheezing or shortness of breath. GI: Negative for changes in bowel habits : Negative for changes in urinary habits. ENDOCRINE: Negative for heat/cold intolerance MUSCULOSKELETAL: See HPI PSYCHIATRIC: Negative for recent changes in psychiatric history PHYSICAL EXAM BP 146/92 Pulse 74 Temp (Src) 98 (Oral) Resp 18 Ht 5' 10 (1.78m) Wt 178 lb 12.7 oz (81.1kg) SpO2 95% BMI 25.65 kg/(m2). Gen: AOx3, NAD CV: RRR Resp: CTAB, no labored breathing, no wheezing Abd: soft, NT/ND L UE: D 5/5 B 5/5 T 5 WE 5/ WF 5/ FF 5/5 IO 5/5, SILT C5-T1 R UE: D 5/5 B 5/5 T 5/5 WE 5/5 WF 5/5 FF 5/5 IO 5/5, SILT C5-T1 L LE: HF 5/5 KE 5/5 DF 5/5 EHL 5/5 PF 5/5, SILT L1-S1 R LE: HF 5/5 KE 5/5 DF 5/5 EHL 5/5 PF 5/5, SILT L1-S1 DTRs: 2+ patellar . Rectal: nl sensation; normal passive/bear down tone Gait: no ataxia, slight limp he says is chronic from bilat knee replacements. LABS: Pending. IMAGING/RADIOGRAPHS: MRI spine IMPRESSION: Cervical spine: Focus of marrow signal abnormality at C4 compatible with bony metastasis. ?No pathologic enhancement in the cervical cord. ?Severe degenerative disc disease in the lower cervical spine with Canal stenosis is worst at C5-C6. Thoracic spine: Multiple areas of abnormal marrow signal in the MID thoracic vertebrae. ?T4 is most affected which shows a 50% pathologic compression fracture with abnormal epidural metastatic soft tissue. ?This results in moderate CORD compression at this level without evidence for cord signal abnormality. No evidence of leptomeningeal disease in the thoracic CORD. Lumbar spine: Bony metastasis at the S2 segment. ?Lumbar vertebrae show no evidence of metastatic disease. ?No evidence of leptomeningeal disease. ?Severe neural foraminal stenoses at right L4-L5 and bilateral L5-S1 due to degenerative disc and facet disease. ?No pathologic enhancement involving conus medullaris or cauda equina. Incidentally noted 1.5 cm enhancing lesion in the right lobe of the liver. ?This is suspicious for an additional metastatic focus Patient Name: Delmi Phillips Account #: Data Unavailable Admission Date: 06/03/2017 Date of Evaluation: 06/04/2017 Time of Evaluation: 3:48 AM Kevon Walters MD PGY-1 Orthopaedic Surgery June 04, 2017 3:48 AM After 5:00PM and weekends, please page [phone] Addendum: Seen independently 66M w back pain starting in February after a fall. Radiographic workup in the first week of May showed compression fracture. MRI was performed on 06/01 and due to concerning findings for pathologic fx and transferred to [facility]. Pain both upright and supine. Not worse in the morning or evening. Positive hematuria. No weakness, numbness or tingling. No bowel or bladder symptoms. No thoracic chest pain. MRI demonstrates bony involvement in the upper and mid cervical spine as well as S2. On CT read available (not physical images), there are multiple lung nodules and a large liver nodule but nothing in the kidney or bladders. On exam, intact without hyperreflexia or ataxia. Pain likely mechanical in nature. No signs or symptoms of thoracic myelopathy at this time. Recommendation: IR consult for biopsy Standing upright thoracic xrays Onc/Radonc consults Alonzo Conway MD Spine Fellow Previous Version Horace Melton MD 06/05/2017 12:26 PM Signed Internal Medicine Progress Note PRIMARY TEAM: Edmond Puckett Weekdays 7 am to 5 pm/Weekend 7 am to 3 pm: Page [phone] (Abjordanamma) Weekdays 5 pm to 7 am/Weekend 3 pm to 7 am: Particle Board Supervisor Pager ([phone]) SERVICE DATE: 06/05/2017 SERVICE TIME: 8:32 AM Plan for the Day: - MRI prostate w/wo contrast to assess for presence of possible CA - Bx either from prostate if there is a lesion or liver likely tomorrow Subjective/Interval HPI: - No acute events overnight, VSS - ESR/CRP wnl, PSA elevated with a low free PSA, suggestive of prostate CA as primary - Patient has no active complaints, would like to return home quickly Assessment AND Plan: 66M previously healthy presents with back pain and new bone mets on MRI with evidence of cord compression . ? #Cord compression - Found on MRI at level T4 - Normal neurological exam - CBC,CMP normal - No previous history of cancer - Underwent recent CT imaging that showed lung nodules - Given one dose of dexa - Seen by Spine surgery, no acute surgical intervention needed Plan: . Analgesics to control pain . Appreciate Spine Surgery assessing patient . Bx from liver vs prostate ? MAINTENANCE: # Diet - Regular # VTE PPx - SubQ enoxaparin qd # GI PPx - None # IVF's - None # Dispo Planning - Home, no skilled needs anticipated # Code Status - Full Vital Signs BP 158/88 Pulse 80 Temp 36.7 ?C (98 ?F) (Oral) Resp 18 Ht 177.8 cm (5' 10) Wt 84.1 kg (185 lb 6.5 oz) SpO2 94% BMI 26.6 kg/m2 PHYSICAL EXAMINATION: General: Pt is laying in bed in no acute distress, speaking in full coherent sentences, nondiaphoretic, cooperative HEENT: anicteric sclera, EOMI, oropharynx clear, moist mucous membranes Cardiac: Regular Rhythm, S1 and S2 without appreciation of murmurs, no rubs/gallops/clicks Lungs: clear to auscultation bilaterally with good respiratory effort Abdomen: soft, non-tender, non-distended, active bowel sounds Extremities: warm, no edema, Radial pulses 2+ bilaterally Neurologic: AANDOx3, Motor/sensation grossly intact x 4 extremities Laboratory Values CBC: Recent Labs 06/05/17 0539 06/04/1762606/03/[id number] WBC 8.35 6.28 8.04 HB 12.8* 12.5* 13.2 PLT 337 281 263 MCV 88.6 88.3 89.8 RDWCV 13.4 13.8 13.6 NEUTP 79.9 72.4 65.1 ABSNEUT 6.67 4.55 5.21 LYMPHP 12.5 17.4 21.0 MONOP 7.5 7.5 11.8 EODINP 0.0 2.2 1.7 BMP: Recent Labs 06/05/17 0506/04/1762606/03/172 GLUC 115* 96 91 NA 131* 132* 131* K 4.1 4.5 3.9 CHLOR 94* 97 95* CO2 22 22 22 ANION 15 13 14 BUN 10 5* 5* CREAT 0.75 0.72* 0.67* CHEM: Recent Labs 06/05/17 0506/04/1762606/03/172 ALB -- 3.5* -- TPROT -- 7.0 -- CA 9.0 8.9 8.5 Intake/Output Intake/Output Summary (Last 24 hours) at 06/05/17 0832 Last data filed at 06/05/17 0600 Gross per 24 hour Intake 640 ml Output 3 ml Net 637 ml ALLERGIES: ALLERGIES Allergen Reactions - Sulfa (Sulfonamide * Rash - Tizanidine GI Upset MEDICATIONS: Current hospital medications: 0.9% NaCl 3-5 mL 3-5 mL INTRAVENOUS q 12 H 0.9% NaCl 2-10 mL 2-10 mL INTRAVENOUS q 12 H docusate sodium 100 mg cap(s) (COLACE) 100 mg ORAL BID PRN acetaminophen 650 mg tab(s) (TYLENOL) 650 mg ORAL q 6 H PRN enoxaparin 40 mg injection (LOVENOX) 40 mg SUBCUTANEOUS q 24 HR naproxen 500 mg tab(s) (NAPROSYN) 500 mg ORAL DAILY PRN traMADol 50 mg tab(s) (ULTRAM) 50 mg ORAL q 6 H PRN SIGNATURE: Toya Barnett MD - Internal Medicine PGY- II PATIENT NAME: Delmi Phillips DATE: June 05, 2017 TIME: 8:32 AM Pager: [phone] Attending Note: I personally interviewed and examined Mr Phillips. and confirmed the padgett elements of the history and physical exam documented by Dr Barnett. the resident. Patient gets occasional back pain which is relieved with current pain regimen After discussing with the urologist on curbside and oncologist think the best way to approach the tissue diagnosis would be having a a liver biopsy to start with him. If the tissues inaccessible then the next step would be and the spinal lesion Though PSA is elevated not high enough to cause metastatic lesions I have reviewed her note above and endorse the findings and plan. A portion of this document has been created with the use of voice-recognition technology. It may contain inaccuracies such as: misspellings or inaccurate syntax or word sense that escaped review. ? Dr. Horace CHACKO MD June 05, 2017 12:26 PM Previous Version Sara Romero MD 06/06/2017 6:54 AM Signed ORTHOPAEDIC SURGERY PROGRESS NOTE PATIENT NAME: Delmi Phillips A/P: 66M w back pain starting in February after a fall. Radiographic workup in the first week of May showed compression fracture. MRI was performed on 06/01 and due to concerning findings for pathologic fx and transferred to [facility]. Pain both upright and supine. Not worse in the morning or evening. Positive hematuria. No weakness, numbness or tingling. No bowel or bladder symptoms. No thoracic chest pain. MRI demonstrates bony involvement in the upper and mid cervical spine as well as S2. On CT read available (not physical images), there are multiple lung nodules and a large liver nodule but nothing in the kidney or bladders. On exam, intact without hyperreflexia or ataxia. Pain likely mechanical in nature. No signs or symptoms of thoracic myelopathy at this time. No surgical intervention planned at this point IR consult for biopsy Standing upright thoracic xrays Onc/Radonc consults S: Doing well, pain well controlled, denies n/v/cp/sob VITALS: 06/05/17 0600 06/05/17 1315 06/05/17 1820 06/05/17 2154 BP: 158/88 137/80 137/78 138/77 Pulse: 80 78 80 73 Resp: Temp: 36.7 ?C (98 ?F) 36.6 ?C (97.8 ?F) 36.7 ?C (98 ?F) 36.5 ?C (97.7 ?F) TempSrc: Oral Oral Oral Oral SpO2: 94% 97% 96% 96% Weight: 84.1 kg (185 lb 6.5 oz) Height: Intake/Output Summary (Last 24 hours) at 06/06/17 0653 Last data filed at 06/06/17 0200 Gross per 24 hour Intake 840 ml Output 1 ml Net 839 ml Physical Exam: * Gen: awake, alert, converses appropriately, NAD * Resp: Unlabored on RA, no wheeze * Focused MSK L UE: D 5/5 B 5/5 T 5/5 WE 5/5 WF 5/5 FF 5/5 IO 5/5, SILT C5-T1 R UE: D 5/5 B 5/5 T 5/5 WE 5/5 WF 5/5 FF 5/5 IO 5/5, SILT C5-T1 L LE: HF 5/5 KE 5/5 DF 5/5 EHL 5/5 PF 5/5, SILT L1-S1 R LE: HF 5/5 KE 5/5 DF 5/5 EHL 5/5 PF 5/5, SILT L1-S1 Labs: CBC: Recent Labs 06/06/17 0420 06/05/17 0539 06/04/17 0627 06/03/17 2142 WBC 8.83 8.35 6.28 8.04 HB 11.8* 12.8* 12.5* 13.2 HCT 36.7* 38.9* 39.2 40.6 PLT 298 337 281 263 MCV 89.3 88.6 88.3 89.8 RDWCV 13.8 13.4 13.8 13.6 NEUTP 68.4 79.9 72.4 65.1 ABSNEUT 6.05 6.67 4.55 5.21 LYMPHP 20.2 12.5 17.4 21.0 MONOP 10.0 7.5 7.5 11.8 EODINP 0.9 0.0 2.2 1.7 COAG: Recent Labs 06/06/17 0420 06/04/17 0628 APTT 26.2 28.2 INR 1.0 1.0 BMP: Recent Labs 06/06/1741906/05/17 0539 06/04/17 0606/03/17 2142 GLUC 92 115* 96 91 NA 135* 131* 132* 131* K 4.6 4.1 4.5 3.9 CHLOR 100 94* 97 95* CO2 25 22 22 22 ANION 10 15 13 14 BUN 12 10 5* 5* CREAT 0.94 0.75 0.72* 0.67* CHEM: Recent Labs 06/06/1741906/05/17 0539 06/04/17 0606/03/17 2142 ALB -- -- 3.5* -- TPROT -- -- 7.0 -- CA 8.5 9.0 8.9 8.5 URINALYSIS:No results for input(s): PH, SPGR, UGLUC, UBILI, UKET, UHB, UPROT, UROBIL, UWBC, SSA in the last 168 hours. Invalid input(s): ERICA Romero MD Orthopaedic Surgery PGY-1 Pager:[phone] (Page 2BONE after 6pm and on wknds) Progress Notes ([facility]): ZEE Castaneda 06/03/2017 1:20 PM Signed Patient's called saying she had received a call but no voicemail message was left. Please call patient when ready to schedule new patient appointment with Dr. Mcarthur. ZEE Castaneda CT ABDOMEN/PELVIS W/ Observed: 05/25/2017 Status: F Source: SCIENTOLOGY CONTRAST 1:30 PM [facility] REPOSITORY Exam Date/Time: 05/25/2017 13:52 EST Reason for Exam: HEMATURIA FM HX OF BLADDER CA LYTIC LESION OF BONE ON XRAY;Hematuria Report CT Abdomen/Pelvis w/ Contrast CLINICAL STATEMENT: Hematuria. Of note, I do see that the patient had a recent CT of the chest on 05/11/2017 which showed a right superior thoracic paraspinal soft tissue mass and evidence of metastatic destruction of the T4 vertebra with a suspected lytic lesion in T5. There are also scattered small subpleural pulmonary nodules diffusely throughout the lung springer suggestive of diffuse micrometastasis. COMPARISON: None. TECHNIQUE: CT examination of the abdomen and pelvis following the administration of 100 mL of Omnipaque 300 intravenous contrast. ?Coronal and sagittal reformations were performed. Dose reduction techniques were achieved by using automated exposure control and/or adjustment of mA and/or kV according to patient size and/or use of iterative reconstruction technique. FINDINGS: Initial images again suggest extensive too numerous to count disseminated micrometastasis with numerous subcentimeter nodules throughout the lung bases. There is a hiatal hernia. The cardiac silhouette is not significantly enlarged. The enhanced liver has diffuse generally small hypodense lesions throughout. They likewise are perhaps too numerous to count but are most suggestive of diffuse metastatic disease. The largest in the left lobe measures 1.8 cm and in the right lobe perhaps 2.2 cm. There is no ductal dilation. There are perhaps 5-10 small hypodensities in the spleen with the spleen otherwise normal in size. Given the appearance, metastasis to the spleen is also certainly considered. I do not see a distinct pancreatic mass or evidence of inflammation. There is no ductal dilation of the pancreatic duct. A few small lymph nodes are noted in the bucky hepatis region, although none are sufficiently enlarged to suggest metastatic disease. There is no evidence of adrenal metastasis. The kidneys enhance normally. There is no obvious solid or cystic mass, calcifications, or hydronephrosis. No inflammatory changes are seen. Both ureters are normal. The bladder is mildly distended. There is perhaps minimal wall thickening but no discrete mass. Aorta is normal in caliber. Minimal wall calcification is seen. The IVC is unremarkable. There is no adenopathy in the retroperitoneum. Exam Date/Time: 05/25/2017 13:52 EST Report In the pelvis, the visualized small bowel pattern is satisfactory. I do not see any obvious colonic mass, wall thickening, major diverticular change, or inflammatory process. The sigmoid colon is rather redundant. There is no unusual pelvic sidewall adenopathy. The prostate is enlarged and calcified. I do not see any lytic or blastic bone changes of the pelvis or lower thoracic and lumbar spine. IMPRESSION: 1. The lung bases show disseminated subcentimeter metastatic nodularity. 2. Hiatal hernia. 3. The liver with the benefit of enhancement now shows multiple hypodense lesions suggestive of diffuse metastatic disease. 4. There is also some minor peripheral hypodense lesions in the spleen which would likewise be of concern for metastatic changes. 5. Major prostatic enlargement is seen with calcifications. 6. Bladder is mildly distended perhaps related to the enlarged prostate. There is some minimal diffuse wall thickening identified anteriorly but a discrete bladder mass is not obviously seen. 7. No obvious etiology for hematuria is seen. The kidneys and adrenal glands are satisfactory as are the ureters. Consideration should be given to biopsy either of the subcutaneous mass in the posterior right thorax or of one of the suspected metastatic lesions of the liver. FINAL REPORT Dictated: 05/26/2017 8:12 am Mahnaz Han DO Signed (Electronic Signature): 05/26/2017 8:12 am Signed by: Mahnaz Han DO Technologist: OMAR, CT-CT ABDOMEN/PELVIS W/ Observed: 05/25/2017 Status: F Source: RETANA CONTRAST IMPORT 12:00 AM [facility] REPOSITORY Images were obtained outside of [facility] [id number] Observed: 05/13/2017 Status: F Source: SCIENTOLOGY C URINE 11:26 AM [facility] REPOSITORY Final Report: No growth Performed By: #### [id number] #### YEISON Microbiology Subsection [address] [place] [address] CT THORAX W/O Observed: 05/11/2017 Status: F Source: SCIENTOLOGY CONTRAST 1:35 PM [facility] REPOSITORY Exam Date/Time: 05/11/2017 13:45 EST Reason for Exam: HIATAL HERNIA LEFT SIDED CHEST PAIN SKIN CYST RIGHT SHOULDER PAIN RIGHT UPPER BACK CYST LEFT SIDED CHEST AND BACK PAIN S/P FALL IN FEBRUARY;Other (please specify) Report EXAM: CT THORAX WITHOUT CONTRAST CLINICAL STATEMENT: Pain in back and chest for 10 weeks. Fell down steps. COMPARISON: Chest x-ray of 05/31/2011. No more recent studies are present for review. TECHNIQUE: Axial CT examination of the chest?without IV contrast. Coronal and sagittal reformations were performed. ? Dose reduction techniques were achieved by using automated exposure control and/or adjustment of mA and/or kV according to patient size and/or use of iterative reconstruction technique. FINDINGS: The lung springer are well-expanded without an acute consolidative or infiltrative process. No effusion is seen. There are numerous bilateral areas of pleural-based and parenchymal nodularity measuring 2 to 7 mm. These reveal no definitive calcification or cavitation. These could relate to a granulomatous-type process however other multinodular process including metastatic disease is not excluded. No associated mediastinal mass, adenopathy, or calcification is seen. There is a moderate sized hiatal hernia noted. In the upper abdomen included no acute abnormality is identified. The ascending aorta is mildly ectatic at 38 mm diameter. Mild prominence of the central pulmonary artery is noted. No pericardial effusion is seen. In the high posterior right para midline dorsal region at approximately the T2 level, there is a subcutaneous soft tissue mass measuring 34 x 25 mm. This would correlate with the palpable finding. No associated calcification is seen. This could relate to a large sebaceous cyst but is not specific and warrants additional evaluation. Review of the osseous structures reveal a comminuted fracture with approximately 40% volume loss of what appears to be T4. This is eccentric involving the left side and there is a relatively blastic appearance of the right remaining vertebral body. This would question a pathologic fracture with an underlying process. No fragment displacement into the central canal is seen although a left-sided soft tissue component may be present. Additional MR evaluation would be suggested. There is a focal lucency seen in the inferior right aspect of the adjacent T5 level. Other osseous defect or old healed fracture is not seen. IMPRESSION: Exam Date/Time: 05/11/2017 13:45 EST Report T4 compression fracture with mixed lytic and blastic appearance suggesting a pathologic fracture. Soft tissue extension into the central canal is questioned without bony fragment extension. There is approximately 50% volume loss. An adjacent to T5 inferior right rounded lucent defect is seen. An upper dorsal posterior right para midline subcutaneous soft tissue mass is present measuring 34 x 25 mm. Multiple small scattered bilateral 2 to 7 mm pulmonary nodules are present. No focal consolidation, edema, or effusion is seen. Moderate-sized hiatal hernia is noted. Findings are suggestive of a metastatic process. Additional MR evaluation of the dorsal spine would be warranted. Critical results were called by Dr. Yuniel Lewis DO to Jerry Aguirre At 05/11/2017 1:52 PM. FINAL REPORT Dictated: 05/11/2017 3:24 pm Yuniel Lewis DO Signed (Electronic Signature): 05/11/2017 3:24 pm Signed by: Yuniel Lewis DO Technologist: MM, CT-CT THORAX W/O Observed: 05/11/2017 Status: F Source: ROBERTS CONTRAST IMPORT 12:00 AM [facility] REPOSITORY Images were obtained outside of [facility] [id number] ALLERGIES ALLERGIES DATE TYPE / CODE NAME / CODE REACTION SEVERITY SOURCE 02/27/2018 Drug Sulfa (Sulfonamide Rash Unknown Wendy Allergy/416 Antibiotics)/D03509 Community 285106([facility] ED CT) Repository 06/04/2017 DRUG TIZANIDINE GI UPSET [facility] INGREDI/419 [facility] [place] 585779(SNOM Repository ED CT) 08/25/2011 Drug SULFA (SULFONAMIDE RASH [facility] Class/15261 ANTIBIOTICS) [facility] [place] 1003(SNOMED Repository CT) Drug/466362 Zofran Vomiting [facility] 003(SNOMED [facility]) System Repository Drug/759637 Robitussin Cough Rash [facility] 003(SNOMED and Cold [facility]) System Repository Drug/680325 TiZANidine Vomiting [facility] 003(SNOMED Hydrochloride [facility]) System Repository Drug/185980 sulfa drugs [facility] 003(SNOMED [facility]) System Repository ENCOUNTERS ENCOUNTERS ADMIT/DISCHARGE ACCOUNT NUMBER ADMITTING ENCOUNTER LOCATION SOURCE CLASS 03/01/2018/03/01/20 [id number] Ambulatory [address] Repository 03/01/2018/03/01/20 [id number] Ambulatory [address] Repository 02/27/2018/02/28/20 [id number] Emergency [place] ding:ED Repository 02/25/2018/02/26/20 [id number] Ambulatory [address] ding:[id number] Repository oom: MS313 02/24/2018/02/25/20 [id number] Ambulatory [facility] [place] Repository 02/24/2018/02/25/20 [id number] Ambulatory [facility] [place] Repository 02/24/2018/02/28/20 [id number] Ambulatory [facility] [place] Repository 02/17/2018/02/18/20 [id number] Emergency [place] Wendy [address] [place] [address] ding:ED Repository 02/01/2018/02/02/20 [id number] CLAYTON BEATTY Ambulatory [facility] [place] Repository 02/01/2018 [id number] Ambulatory [facility] [place] Repository 02/01/2018/02/02/20 [id number] CLAYTON BEATTY Ambulatory [facility] [place] Repository 02/01/2018 [id number] CLAYTON BEATTY Ambulatory [facility] [place] Repository 01/23/2018/01/25/20 [id number] Ambulatory [facility] [place] Repository 01/23/2018/01/24/20 [id number] Ambulatory [facility] [place] Repository 01/18/2018/01/20/20 [id number] Ambulatory [facility] [place] Repository 01/18/2018/01/20/20 [id number] Ambulatory [facility] [place] Repository 01/12/2018/01/14/20 [id number] Ambulatory [facility] [place] Repository 12/15/2017/12/16/19 [id number] Ambulatory [facility] [place] Repository 12/14/2017/12/15/19 [id number] Ambulatory [facility] [place] Repository 12/13/2017/12/14/19 [id number] Ambulatory [facility] [place] Repository 12/13/2017/12/14/19 [id number] Ambulatory [facility] [place] Repository 12/12/2017/12/13/19 [id number] Ambulatory [facility] [place] Repository 12/09/2017/12/10/19 [id number] Ambulatory [facility] [place] Repository 12/08/2017/12/09/19 [id number] Ambulatory [facility] [place] Repository 12/07/2017/12/08/19 [id number] Ambulatory [facility] [place] Repository 12/07/2017/12/08/19 [id number] Ambulatory [facility] [place] Repository 12/06/2017/12/07/19 [id number] Ambulatory [facility] [place] Repository 12/06/2017/12/07/19 [id number] Ambulatory [facility] [place] Repository 12/02/2017/12/03/19 [id number] Ambulatory [facility] [place] Repository 12/01/2017/12/02/19 [id number] Ambulatory [facility] [place] Repository 12/01/2017/12/02/19 [id number] Ambulatory [facility] [place] Repository 11/29/2017/11/30/19 [id number] Ambulatory [facility] [place] Repository 11/28/2017/12/03/19 [id number] Ambulatory [facility] [place] Repository 11/24/2017/11/25/19 [id number] Ambulatory [facility] [place] Repository 11/21/2017/11/23/19 [id number] Ambulatory [facility] [place] Repository 11/21/2017/11/23/19 [id number] Ambulatory [facility] [place] Repository 11/07/2017/11/09/19 [id number] Ambulatory [facility] [place] Repository 11/07/2017/11/09/19 [id number] Ambulatory [facility] [place] Repository 11/07/2017/11/08/19 [id number] Ambulatory [facility] [place] Repository 10/18/2017/10/20/19 [id number] Ambulatory [facility] [place] Repository 10/18/2017/10/20/19 [id number] Ambulatory [facility] [place] Repository 09/20/2017/09/21/19 [id number] Emergency [place] 18 [facility] ding:ED Repository 09/20/2017/09/21/19 [id number] Ambulatory [facility] [place] Repository 09/16/2017/09/17/19 [id number] Ambulatory [facility] [place] Repository 09/07/2017/09/22/19 [id number] Ambulatory [facility] [place] Repository 09/05/2017/09/09/19 [id number] Ambulatory [facility] [place] Repository 09/05/2017/09/06/19 [id number] Ambulatory [facility] [place] Repository 09/05/2017/09/07/19 [id number] Ambulatory [facility] [place] Repository 08/18/2017/08/20/19 [id number] Ambulatory [facility] [place] Repository 08/17/2017/08/20/19 [id number] Ambulatory [facility] [place] Repository 08/15/2017/08/18/19 [id number] Ambulatory [facility] [place] Repository 08/15/2017/08/17/19 [id number] Ambulatory [facility] [place] Repository 08/12/2017/08/14/19 [id number] MARVIN, Ambulatory [facility] [address] [place] [address] [place] Repository 08/12/2017/08/13/19 [id number] [place], Emergency [address] Regional ding:[facility] EDRoom: WR Repository 08/02/2017 [id number] Ambulatory [facility] [place] Repository 08/02/2017/08/04/19 [id number] Ambulatory [facility] [place] Repository 08/02/2017/08/05/19 [id number] Ambulatory [facility] [place] Repository 07/28/2017/07/30/19 [id number] Ambulatory [facility] [place] Repository 07/27/2017/07/28/19 [id number] Ambulatory [facility] [place] Repository 07/27/2017/07/29/19 [id number] Ambulatory [facility] [place] Repository 07/07/2017/07/09/19 [id number] Ambulatory [facility] [place] Repository 07/07/2017/07/08/19 [id number] Ambulatory [facility] [place] Repository 07/06/2017/07/07/19 [id number] Ambulatory [facility] [place] Repository 07/06/2017/07/08/19 [id number] Ambulatory [facility] [place] Repository 07/06/2017/07/07/19 [id number] Ambulatory [facility] [place] Repository 06/30/2017/07/01/19 [id number] Ambulatory [facility] [place] Repository 06/29/2017/06/30/19 [id number] Ambulatory [facility] [place] Repository 06/28/2017/06/29/19 [id number] Ambulatory [facility] [place] Repository 06/28/2017/06/29/19 [id number] Ambulatory [facility] [place] Repository 06/27/2017/06/28/19 [id number] Ambulatory [facility] [place] Repository 06/24/2017/06/25/19 [id number] Ambulatory [facility] [place] Repository 06/23/2017/06/24/19 [id number] Ambulatory [facility] [place] Repository 06/22/2017/06/23/19 [id number] Ambulatory [facility] [place] Repository 06/21/2017/06/22/19 [id number] Ambulatory [facility] [place] Repository 06/21/2017/06/22/19 [id number] Ambulatory [facility] [place] Repository 06/20/2017/06/21/19 [id number] Ambulatory [facility] [place] Repository 06/17/2017/06/18/19 [id number] Ambulatory [facility] [place] Repository 06/16/2017/06/17/19 [id number] Ambulatory [facility] [place] Repository 06/15/2017/06/16/19 [id number] Ambulatory [facility] [place] Repository 06/14/2017/06/15/19 [id number] Ambulatory [facility] [place] Repository 06/14/2017/06/15/19 [id number] Ambulatory [facility] [place] Repository 06/13/2017/06/14/19 [id number] Ambulatory [facility] [place] Repository 06/13/2017/06/14/19 [id number] Ambulatory [facility] [place] Repository 06/10/2017/06/14/19 [id number] Ambulatory [facility] [place] Repository 06/10/2017/06/11/19 [id number] Ambulatory [facility] [place] Repository 06/10/2017/06/17/19 [id number] Ambulatory [facility] [place] Repository 06/09/2017/06/10/19 [id number] Inpatient [place] [facility] [place] Repository 06/08/2017/06/10/19 [id number] CHANTEL, Inpatient [place] [address] JD Encounter [facility] [place] Repository 06/08/2017/06/09/19 [id number] Emergency [place] Wendy [address] [place] [address] ding:ED Repository 06/07/2017/06/08/19 [id number] Ambulatory [address] ding:[place] Repository nt Medic 06/06/2017/06/07/19 [id number] Ambulatory [address] Repository 06/03/2017/06/07/19 [id number] CHANTEL, Inpatient [address] Repository 05/26/[id number] [place], [facility] ding:.[facility] Repository 05/25/2017/05/25/19 [id number] [place], [address] ding:.CT Health [facility] Repository 05/24/2017/05/24/19 [id number] Eric, [place] [address] Mary Titus uilding:[facility] urgCareRoom: Health System Room 2 Repository 05/18/2017/05/18/19 [id number] Ambulatory [address] ding:[place] Repository nt Medic 05/12/2017/05/12/19 [id number] [place], [address] ding:[place] Repository nt MedicRoom: Room 2 05/12/[id number] [place], [facility] ding:.[facility] Repository 05/12/2017/05/12/19 [id number] [place], [address] ding:.[facility] Repository 05/11/2017/05/11/19 [id number] [place], [address] ding:.CT Health [facility] Repository 05/10/2017/05/10/19 [id number] [place], [address] ding:[place] Repository nt MedicRoom: Room 2 PAYERS PAYERS ENCOUNTER GUARANTOR PAYER SUBSCRIBER SOURCE 02/27/2018 DELMI Soni Primary DELMI Nguyen [id number] CR Insurance:MEDICARE DOVEDOB: [address] PART A [facility] [id number] Hospital [id number]: (419) Number: Repository [phone] () [id number] Date:2018-02-27 02/27/2018 Secondary NOT GIVENUNK [place] Insurance:SELF PAY [facility] Number: Effective Repository Date:2018-02-27 02/25/2018 DELMI Soni Primary DELMI Nguyen [id number] CR Insurance:MEDICARE DOVEDOB: [address] PART A [facility] [id number] Hospital [id number]: (419) Number: Repository [phone] () [id number] Date:2018-02-24 02/25/2018 Secondary NOT GIVENUNK Wendy Insurance:SELF PAY [facility] Number: Effective Repository Date:2018-02-24 02/17/2018 DELMI Soni Primary DELMI Nguyen [id number] CR Insurance:MEDICARE DOVEDOB: [address] PART A [facility] [id number] Hospital [address]Thv: (419) Number: Repository [phone] () [id number] Date:2018-02-17 02/17/2018 Secondary NOT GIVENUNK Wendy Insurance:SELF PAY [facility] Number: Effective Repository Date:2018-02-17 09/20/2017 DELMI Soni Primary DELMI Nguyen [id number] CR Insurance:MEDICARE DOVEDOB: [address] PART A [facility] [id number] Hospital [id number]: (419) Number: Repository [phone] () [id number] Date:2017-09-20 09/20/2017 Secondary NOT GIVENUNK Wendy Insurance:SELF PAY [facility] Number: Effective Repository Date:2017-09-20 08/12/2017 DELMI Soni Primary DELMI Soni Gnosticist DOVEDOB: Insurance:MedicarePol DOVEDOB: [facility] [id number] icy Number: Effective [id number] [place] [address] Date:2017-08-[address] [facility] Repository [address] [place] [address] [id number] [address] [place] [phone]: Name:CD:[id number] [place] [id number]: [id number], [place] (HP) [id number]: [phone]) (HP) [phone] (WP) 06/08/2017 DELMI [id number] Primary DELMI DOVEDOB: Wendy CR [address] [place] [address], Insurance:MEDICARE [id number] [address]Gqn: PART A [facility] Number: Repository () [id number] Date:2017-06-08 06/08/2017 Secondary NOT GIVENUNK [place] Insurance:SELF PAY [facility] Number: Effective Repository Date:2017-06-08 06/07/2017 DELMI Soni Primary DELMI Soni Gnosticist DOVEDOB: Insurance:MedicarePol DOVEDOB: [facility] icy Number: Effective [id number] [place] [address] Date:2017-05-31 [facility] Repository [address] [place] [address] [id number]9396Tel: Name:CD:[id number] [place] [id number]: [id number], [place] (HP) [phone]: [phone]) (HP) [phone] (WP) 05/26/2017 DELMI Nae Primary DELMI [place] DOVEDOB: Insurance:MedicarePol DOVEDOB: [facility] icy Number: Effective [id number] [place] [address] ROAD Date:2017-05-13 [facility] Repository [address] [place] [address] [id number] [address] [place] [phone]: Name:CD:[id number] [place] [id number]: [id number], [place] (HP) [phone]: [phone]) (HP) [phone] (WP) 05/25/2017 DELMI Pressley DOVEDOB: Insurance:MedicarePol DOVEDOB: [facility] icy Number: Effective [id number] [place] [address] Date:2017-05-13 [facility] Repository [address] [place] [address] [id number] [address] [place] [phone]: Name:CD:[id number] [address] [phone]: [id number], [place] (HP) [id number]: [phone]) (HP) [phone] (WP) 05/24/2017 DELMI Soni Primary DELMI Pressley DOVEDOB: Insurance:1500 DOVEDOB: [facility] MEDICARE [id number] [place] [address] [address]: [address] [facility] Repository [address] [place] [address] [place], [place] [address]Tel: Date:2017-05-1085967-6183Skl: [id number] (HP) Name:[id number] O (HP)Tel: (000) [address]NAFTDLXHF, 000-0000 ([place]) [place] [address]AZ: 05/18/2017 DELMI Pressley DOVEDOB: Insurance:1500 DOVEDOB: [facility] MEDICARE [id number] [address] PRIMARYPolicy Number: [address] Repository [address] [place] [address] [place] [id number]: ([phone]) Date:2017-05-10Tel: (HP) [id number] [phone] Name:[id number] O (HP)Tel: (000) [address]UUSYEECGC, 000-0000 ([place]) [place] [address]OU: 05/12/2017 DELMI Pressley DOVEDOB: Insurance:1500 DOVEDOB: [facility] MEDICARE [id number] [facility] PRIMARYPolicy Number: [address] [facility] Repository [address] [place] [address] [place], [place] [id number]: Date:2017-05-1280878-2463Ceo: [id number] (HP) Name:[id number] O (HP)Tel: (000) [address] [address]LFCLMHZDP, 000-0000 ([place]) [place] [address]UE: 05/12/2017 DELMI Soni Primary DELMI Pressley DOVEDOB: Insurance:MedicarePol DOVEDOB: [facility] icy Number: Effective [id number] [facility] Date:2017-05-[address] [id number] [address] [place], [place] [id number]: Name:[id number] [address]Wcs: [id number], [place] (HP) [id number]: (300) (HP) 000-0000 (WP) 05/12/2017 DELMI Pressley DOVEDOB: Insurance:MedicarePol DOVEDOB: [facility] icy Number: Effective [id number] [place] [address] Date:2017-05-[address] [id number] [address] [place], [place] [address]Tel: Name:[id number] [address]Xtf: [id number], [place] (HP) [id number]: (800) (HP) 000-0000 (WP) 05/11/2017 DELMI Pressley DOVEDOB: Insurance:MedicarePol DOVEDOB: [facility] icy Number: Effective [id number] System [facility] Date:2017-05-[address] [facility] Repository [address] [place] [address] [id number] [address] [place] [address]Pwg: Name:CD:[id number] [address]Nvn: [id number], [place] (HP) [phone]: (800) (HP) 000-0000 (WP) 05/10/2017 DELMI Pressley DOVEDOB: Insurance:1500 DOVEDOB: [facility] MEDICARE [id number] PRIMARYPolicy Number: [address] Repository [address] [place] [address] [place], [place] [address]Tel: ([phone]) Date:2017-05-10Tel: (HP) [id number] [phone] Name:[id number] O (HP)Tel: (000) [address] [address]ZUNJCNEVW, 000-0000 ([place]) [place] [address]CJ:
== END 2018-02-27 20:32 | disposition home or self-care (01) ==
LOC: ED 18:36
PROVIDERS: Emergency Provider Emergency Medicine; Family Provider Nurse Practitioner Family; PCP Nurse Practitioner Family
DX: N13.9 Obstructive and reflux uropathy, unspecified (principal); N39.0 Urinary tract infection, site not specified; C43.9 Malignant melanoma of skin, unspecified; C79.9 Secondary malignant neoplasm of unspecified site; Z79.899 Other long term (current) drug therapy
CPT/HCPCS: 51702; 80053; 81001; 85025; 87040; 87086; 96361; 96365; 99285; J7040; A4216